=== PATIENT | female | born 1935 | race Caucasian/White ===

== ENCOUNTER 2016-07-19 13:14 | Inpatient (IN) | payer OTHER ==
--- NOTE | 2016-07-19 16:04 | PDOC ---
History of Present Illness - General Chief Complaint: Weakness Stated Complaint: WEAKNESS Time Seen by Provider: 07/19/16 15:45 History Source: Patient Exam Limitations: No Limitations - History of Present Illness Initial Comments: 80 yo F history HTN, HL, hypothyroid, GERD, asthma, anemia presents with weakness. She was evaluated in the ED a few days ago for the same, found to have UTI. She has been taking keflex, but is still feeling weak. She has suprapubic abdominal pain and lower back pain. No flank pain. Denies N/V. States that she feels dehydrated. Past History - Past Medical History Allergies/Adverse Reactions: Allergies Allergy/AdvReac Type Severity Reaction Status Date / Time quinine [Quinine] Allergy Mild Rash Verified 07/19/16 13:30 Sulfa (Sulfonamide Allergy Mild Rash Verified 07/19/16 13:30 Antibiotics) [Sulfa(Sulfonamide Antibiotics)] Home Medications: Ambulatory Orders Carvedilol [Coreg] 6.25 mg PO DAILY 12/18/14 Levothyroxine [Synthroid -] 25 mcg PO DAILY 12/18/14 Losartan Potassium [Cozaar] 50 mg PO DAILY 12/18/14 Metformin HCl [Glucophage -] 500 mg PO TID 12/18/14 Sertraline HCl [Zoloft -] 25 mg PO HS 12/18/14 Sitagliptin Phosphate [Januvia] 100 mg PO DAILY 12/18/14 Atorvastatin Ca [Lipitor] 10 mg PO HS #1 tablet 12/22/14 Ranitidine [Zantac -] 150 mg PO BID #1 tablet 12/22/14 Cholecalciferol (Vitamin D3) [Vitamin D3 -] 1,000 unit PO DAILY 03/10/16 [place]-3 Fatty Acids [Fish Oil] 300 mg PO BID 03/10/16 Calcium Carb/Vitamin D3/Vit K1 [Citracal Soft Chew] 1 each PO DAILY 04/04/16 Fluticasone/Salmeterol [Advair 250-50 Diskus] 1 each IH BID 04/04/16 Ipratropium/Albuterol Sulfate [Combivent Respimat Inhal [place]] 4 gm IH QID PRN # 1 aer.w.adap 04/08/16 Cephalexin [Keflex] 500 mg PO BID #14 capsule 07/16/16 Anemia: Yes Asthma: Yes Cancer: No Cardiac Disorders: Yes (ashd) CVA: No COPD: Yes (emphysema) CHF: No Dementia: No Diabetes: Yes (NIDDM) GI Disorders: Yes (Diverticulosis,gerd, POLYPS) Disorders: No HTN: No Hypercholesterolemia: Yes (takes lipitor) Liver Disease: (FATTY LIVER) Psychiatric Problems: Yes (derpression) Seizures: No Thyroid Disease: Yes - Surgical History Abdominal Surgery: Yes (appendectomy,hernia repair) Appendectomy: Yes Cardiac Surgery: No Cholecystectomy: No Lung Surgery: No Neurologic Surgery: No Orthopedic Surgery: No - Psycho/Social/Smoking Cessation Hx Anxiety: No Suicidal Ideation: No Smoking Status: Yes (1972) Smoking History: Never smoked Have you smoked in the past 12 months: No Number of Cigarettes Smoked Daily: 0 If you are a former smoker, when did you quit?: 1972 Information on smoking cessation initiated: No 'Breaking Loose' booklet given: 11/23/15 Hx Alcohol Use: No Drug/Substance Use Hx: No Substance Use Type: None Hx Substance Use Treatment: No Review of Systems - Review of Systems Able to Perform ROS?: Yes Comments:: GENERAL/CONSTITUTIONAL: No fever or chills. +Weakness. HEAD, EYES, EARS, NOSE AND THROAT: No change in vision. No ear pain or discharge. No sore throat. CARDIOVASCULAR: No chest pain or shortness of breath. RESPIRATORY: No cough, wheezing, or hemoptysis. GASTROINTESTINAL: No nausea, vomiting, diarrhea or constipation. GENITOURINARY: No dysuria, frequency, or change in urination. MUSCULOSKELETAL: No joint or muscle swelling or pain. No neck or back pain. SKIN: No rash NEUROLOGIC: No headache, vertigo, loss of consciousness, or change in strength/ sensation. ENDOCRINE: No increased thirst. No abnormal weight change. HEMATOLOGIC/LYMPHATIC: No anemia, easy bleeding, or history of blood clots. ALLERGIC/IMMUNOLOGIC: No hives or skin allergy. *Physical Exam - Vital Signs Last Vital Signs Temp Pulse Resp BP Pulse Ox 97.8 F 78 18 117/71 93 L 07/19/16 13:30 07/19/16 13:30 07/19/16 13:30 07/19/16 13:30 07/19/16 13:30 - Physical Exam Comments: GENERAL: Awake, alert, and fully oriented, in no acute distress HEAD: No signs of trauma EYES: PERRLA, EOMI, sclera anicteric, conjunctiva clear ENT: Auricles normal inspection, hearing grossly normal, nares patent, oropharynx clear without exudates. Dry mucosa NECK: Normal ROM, supple, no lymphadenopathy, JVD, or masses LUNGS: Breath sounds equal, clear to auscultation bilaterally. No wheezes, and no crackles HEART: Regular rate and rhythm, IV/ systolic murmur ABDOMEN: Soft, nontender, normoactive bowel sounds. No guarding, no rebound. No masses EXTREMITIES: Normal range of motion, no edema. No clubbing or cyanosis. No cords, erythema, or tenderness NEUROLOGICAL: Cranial nerves II through XII grossly intact. Normal speech, normal gait SKIN: Warm, Dry, normal turgor, no rashes or lesions noted. Heart Score/ECG Review - ECG Impressions Comment:: EKG read 16:35- NSR 70 bpm, inv T aVL, +LVH ED Treatment Course - LABORATORY CBC & Chemistry Diagram: 07/20/16 07:15 07/20/16 07:15 Medical Decision Making - Medical Decision Making Pt admitted for pna due to low O2 Sat on room air. *DC/Admit/Observation/Transfer Diagnosis at time of Disposition: Weakness Pneumonia Qualifiers: Pneumonia type: due to unspecified organism Laterality: bilateral Lung location : lower lobe of lung Qualified Code(s): J18.9 - Pneumonia, unspecified organism - Discharge Dispostion Condition at time of disposition: Stable Admit: Yes - Referrals
[2016-07-19 16:20] LABS: BASOPHIL 1.6 % (0-2.0); MCHC 33.4 g/dl (32.0-36.0); MEAN CELL VOLUME 86.9 fl (80-96); MEAN PLT VOLUME 7.9 fl (7.5-11.1); NEUTROPHILS 62.5 % (42.8-82.8); PLATELET COUNT 253 K/MM3 (134-434); RDW 15.5 % (11.6-15.6); WHITE BLOOD COUNT 9.2 K/mm3 (4.0-10.0)
[2016-07-19 16:36] LABS: URINE APPEARANCE CLEAR; URINE BILIRUBIN NEGATIVE (NEGATIVE); URINE BLOOD NEGATIVE (NEGATIVE); URINE COLOR LTYELLOW; URINE GLUCOSE (UA) NEGATIVE (NEGATIVE); URINE KETONE NEGATIVE (NEGATIVE); URINE LEUK ESTERASE NEGATIVE (NEGATIVE); URINE NITRITE NEGATIVE (NEGATIVE); URINE PROTEIN NEGATIVE (NEGATIVE); URINE UROBILINOGEN NEGATIVE E.U./dl (0.2-1.0)
[2016-07-19 16:45] LABS: ALBUMIN 3.1 g/dl (3.4-5.0); ANION GAP 8 (8-16); BILIRUBIN,TOTAL 0.5 mg/dL (0.2-1.0); CALCIUM 8.1 mg/dL (8.5-10.1); CO2 28 mmol/L (21-32); CREATININE 0.6 mg/dL (0.55-1.02); GLUCOSE,RANDOM 107 mg/dL (74-106); SGOT/AST 13 U/L (15-37); SGPT/ALT 14 U/L (12-78); TOT PROT 6.4 g/dl (6.4-8.2)
[2016-07-19 16:47] LABS: ALK PHOS 49 U/L (45-117); TROPONIN I < 0.02 ng/ml (0.00-0.05)
[2016-07-19] MEDS ORDERED: CEFTRIAXONE 1 GM in DEXTROSE 5%-WATER - 50 ML IVPB ONE (17:20)
[2016-07-19] MEDS ORDERED: AZITHROMYCIN IVPB 500 MG in DEXTROSE 5%-WATER - 250 ML IVPB ONE (17:20)
[2016-07-19] MEDS ORDERED: CEFTRIAXONE 50 ML ONE (17:28)
[2016-07-19] MEDS ORDERED: AZITHROMYCIN IVPB 250 ML IVPB ONE (17:28)
[2016-07-19] MEDS ORDERED: PATIENT'S OWN MEDICATION (NON-FORMULARY) (Ipratropium/Albuterol Sulfate [Combivent Respima IH PRN (20:01)
[2016-07-19] MEDS ORDERED: ACETAMINOPHEN 325 MG TABLET (FP) PO PRN (20:03)
[2016-07-19] MEDS ORDERED: RANITIDINE HCL 150 MG TABLET (FP) ONE (23:29)
[2016-07-19] MEDS: INSULIN SLIDING SCALE (NOVOLOG) 1 VIAL SQ SCH (23:38)
[2016-07-19] MEDS: RANITIDINE HCL 150 MG TABLET (FP) PO SCH (23:39)
[2016-07-19] MEDS: ATORVASTATIN CA 10 MG TABLET (FP) PO SCH (23:39)
[2016-07-19] MEDS: SERTRALINE HCL 25 MG TABLET (FP) PO SCH (23:39)
[2016-07-19] MEDS: BUDESONIDE/FORMETEROL FUMARATE 80/4.5 mcg INHALER IH SCH (23:39)
[2016-07-20] MEDS: INSULIN SLIDING SCALE (NOVOLOG) 1 VIAL SQ SCH ×4 (07:40→21:58)
[2016-07-20 08:17] LABS: BASOPHIL 0.8 % (0-2.0); EOSINOPHIL 2.3 % (0-4.5); MCH 29.7 pg (25.7-33.7); MCHC 34.1 g/dl (32.0-36.0); MEAN CELL VOLUME 87.2 fl (80-96); MEAN PLT VOLUME 8.4 fl (7.5-11.1); NEUTROPHILS 60.1 % (42.8-82.8); PLATELET COUNT 245 K/MM3 (134-434); RDW 15.6 % (11.6-15.6); WHITE BLOOD COUNT 8.1 K/mm3 (4.0-10.0)
[2016-07-20] MEDS: sitaGLIPtin PHOSPHATE 100 MG TABLET (FP) PO SCH (08:21)
[2016-07-20] MEDS: metFORMIN HCL 500 MG TABLET (FP) PO SCH ×3 (08:21→16:41)
[2016-07-20] MEDS: LEVOTHYROXINE NA 25 MCG TABLET (FP) PO SCH (08:21)
[2016-07-20 08:53] LABS: CALCIUM 8.1 mg/dL (8.5-10.1); CREATININE 0.5 mg/dL (0.55-1.02); MAGNESIUM 1.8 mg/dL (1.8-2.4); PHOSPHOROUS 3.2 mg/dL (2.5-4.9)
[2016-07-20] MEDS: ENOXAPARIN NA (PORCINE) 40 MG/0.4 ML DISP.SYRIN SQ SCH (09:22)
[2016-07-20] MEDS: LACTOBACILLUS ACIDOPHILUS 1 EACH TAB (FP) PO SCH (10:21)
[2016-07-20] MEDS: CARVEDILOL 6.25 MG TABLET (FP) PO SCH (10:21)
[2016-07-20] MEDS: LOSARTAN POTASSIUM 50 MG TABLET (FP) PO SCH (10:22)
[2016-07-20] MEDS: CEFTRIAXONE 50 ML IVPB SCH (10:22)
[2016-07-20] MEDS: RANITIDINE HCL 150 MG TABLET (FP) PO SCH ×2 (10:23→21:59)
[2016-07-20] MEDS: BUDESONIDE/FORMETEROL FUMARATE 80/4.5 mcg INHALER IH SCH ×2 (10:23→21:58)
[2016-07-20] MEDS: CHOLECALCIFEROL (VITAMIN D3) 1,000 UNIT TABLET (FP) PO SCH (10:23)
[2016-07-20] MEDS: AZITHROMYCIN IVPB 250 MG in DEXTROSE 5%-WATER - 250 ML IVPB SCH (10:23)
--- NOTE | 2016-07-20 10:44 | HP ---
Admitting History and Physical - Primary Care Physician PCP: Jorje Tom - Admission Chief Complaint: I don't feel well History of Present Illness: Ms Valadez is a very pleasant 80 year old female who comes in with complaints of not feeling well. She says this began last week with general weakness and shortness of breath. She says she was getting short of breath on minimal exertion and she was feeling very weak. She was seen in the ED on Tuesday and discharged, however she began to feel worse. She says she was having difficulty walking secondary to weakness. She has lightheadedness, both at rest and exertion. She says she was feeling feverish with chills. She says she had a productive cough with green sputum. She had some nausea but no vomiting. She denies dizziness, passing out, chest pain, diarrhea, constipation, difficulty or pain on urination, or swelling. She is saying she still feels bad. History Source: Patient Limitations to Obtaining History: No Limitations - Past Medical History Cardiovascular: Yes: Aortic Stenosis, HTN, Hyperlipdemia Pulmonary: Yes: COPD Musculoskeletal: Yes: Osteoarthritis Endocrine: Yes: Diabetes Mellitus, Hypothyroidism - Past Surgical History Past Surgical History: Yes: Appendectomy, Hernia Repair, Tonsillectomy - Smoking History Smoking history: Former smoker Have you smoked in the past 12 months: No Aproximately how many cigarettes per day: 0 If you are a former smoker, when did you quit?: 1972 - Alcohol/Substance Use Hx Alcohol Use: No History of Substance Use: reports: None - Social History ADL: Independent History of Recent Travel: No Home Medications - Allergies Allergies/Adverse Reactions: Allergies Allergy/AdvReac Type Severity Reaction Status Date / Time quinine [Quinine] Allergy Mild Rash Verified 07/19/16 13:30 Sulfa (Sulfonamide Allergy Mild Rash Verified 07/19/16 13:30 Antibiotics) [Sulfa(Sulfonamide Antibiotics)] - Home Medications Home Medications: Ambulatory Orders Carvedilol [Coreg] 6.25 mg PO DAILY 12/18/14 Levothyroxine [Synthroid -] 25 mcg PO DAILY 12/18/14 Losartan Potassium [Cozaar] 50 mg PO DAILY 12/18/14 Metformin HCl [Glucophage -] 500 mg PO TID 12/18/14 Sertraline HCl [Zoloft -] 25 mg PO HS 12/18/14 Sitagliptin Phosphate [Januvia] 100 mg PO DAILY 12/18/14 Atorvastatin Ca [Lipitor] 10 mg PO HS #1 tablet 12/22/14 Ranitidine [Zantac -] 150 mg PO BID #1 tablet 12/22/14 Cholecalciferol (Vitamin D3) [Vitamin D3 -] 1,000 unit PO DAILY 03/10/16 [place]-3 Fatty Acids [Fish Oil] 300 mg PO BID 03/10/16 Calcium Carb/Vitamin D3/Vit K1 [Citracal Soft Chew] 1 each PO DAILY 04/04/16 Fluticasone/Salmeterol [Advair 250-50 Diskus] 1 each IH BID 04/04/16 Ipratropium/Albuterol Sulfate [Combivent Respimat Inhal [place]] 4 gm IH QID PRN # 1 aer.w.adap 04/08/16 Cephalexin [Keflex] 500 mg PO BID #14 capsule 07/16/16 Family Disease History - Family Disease History Family Disease History: Heart Disease: Mother, Son, Other: Father (emphysema, PE ) Review of Systems Findings/Remarks: Full review of systems obtained, as per HPI and otherwise negative Physical Examination Vital Signs: Vital Signs Temperature 98.3 F 07/19/16 18:36 Pulse Rate 71 07/20/16 05:30 Respiratory Rate 18 07/20/16 05:30 Blood Pressure 130/72 07/20/16 05:30 O2 Sat by Pulse Oximetry (%) 97 07/20/16 05:30 Constitutional: Yes: Well Nourished, No Distress, Calm Eyes: Yes: Conjunctiva Clear, EOM Intact HENT: Yes: Atraumatic, Normocephalic Cardiovascular: Yes: Regular Rate and Rhythm, Murmur. No: Gallop, Rub Respiratory: Yes: Regular, CTA Bilaterally. No: Rales, Rhonchi, Wheezes Gastrointestinal: Yes: Normal Bowel Sounds, Soft. No: Distention, Tenderness Extremities: Yes: WNL Edema: No Labs: CBC, BMP 07/20/16 07:15 07/20/16 07:15 Imaging - Results Chest X-ray: Report Reviewed, Image Reviewed Problem List - Problems (1) Pneumonia Assessment/Plan: -patient presents with signs of infection and has infiltrates on chest x-ray -recently seen in the ED, discharged on keflex for possible UTI -however presentation this time more consistent with pneumonia -failed outpatient antibiotic therapy -admit to med/surg -check sputum culture and urine for antigens -on rocephin and zithromax, day 2 -will check influenza as well Code(s): J18.9 - PNEUMONIA, UNSPECIFIED ORGANISM Qualifiers: Pneumonia type: due to unspecified organism Laterality: bilateral Lung location: lower lobe of lung Qualified Code(s): J18.9 - Pneumonia, unspecified organism (2) Weakness Assessment/Plan: -secondary to pneumonia -PT consult Code(s): R53.1 - WEAKNESS (3) Aortic stenosis Assessment/Plan: -chronic -patient states not interested in intervention Code(s): I35.0 - NONRHEUMATIC AORTIC (VALVE) STENOSIS (4) CAD (coronary artery disease) Assessment/Plan: -quiescent -continue home regimen Code(s): I25.10 - ATHSCL HEART DISEASE OF [place] CORONARY ARTERY W/O ANG PCTRS (5) COPD (chronic obstructive pulmonary disease) Assessment/Plan: -slight exacerbation secondary to pneumonia -however lung exam clear and not requiring oxygen -currently steroids are not indicated -continue current regimen Code(s): J44.9 - CHRONIC OBSTRUCTIVE PULMONARY DISEASE, UNSPECIFIED Qualifiers : COPD type: unspecified COPD Qualified Code(s): J44.9 - Chronic obstructive pulmonary disease, unspecified (6) Diabetes Assessment/Plan: -diabetic diet -continue home regimen -SSI Code(s): E11.9 - TYPE 2 DIABETES MELLITUS WITHOUT COMPLICATIONS (7) GERD (gastroesophageal reflux disease) Assessment/Plan: -continue zantac Code(s): K21.9 - GASTRO-ESOPHAGEAL REFLUX DISEASE WITHOUT ESOPHAGITIS (8) HTN (hypertension) Assessment/Plan: -controlled -continue current regimen Code(s): I10 - ESSENTIAL (PRIMARY) HYPERTENSION
--- NOTE | 2016-07-20 12:52 | EKG ---
Test Reason : Blood Pressure : / mmHG Vent. Rate : 070 BPM Atrial Rate : 073 BPM P-R Int : 186 ms QRS Dur : 096 ms QT Int : 416 ms P-R-T Axes : 071 -41 089 degrees QTc Int : 449 ms NORMAL SINUS RHYTHM WITH SINUS ARRHYTHMIA LEFT AXIS DEVIATION VOLTAGE CRITERIA FOR LEFT VENTRICULAR HYPERTROPHY CANNOT RULE OUT SEPTAL INFARCT (CITED ON OR BEFORE 19-MAR-2016) ABNORMAL ECG WHEN COMPARED WITH ECG OF 16-JUL-2016 21:33, NO SIGNIFICANT CHANGE WAS FOUND Confirmed by GIO GUZMÁN MD ([id number]) on 07/20/2016 12:52:46 PM Referred By: Confirmed By:GIO GUZMÁN MD
[2016-07-20 13:28] VITALS: BMI 30.8
[2016-07-20] MEDS ORDERED: AZITHROMYCIN IVPB 250 ML IVPB ONE (16:27)
[2016-07-20] MEDS ORDERED: CEFTRIAXONE 50 ML ONE (16:27)
[2016-07-20] MEDS: SERTRALINE HCL 25 MG TABLET (FP) PO SCH (21:59)
[2016-07-20] MEDS: ATORVASTATIN CA 10 MG TABLET (FP) PO SCH (21:59)
[2016-07-21] MEDS: sitaGLIPtin PHOSPHATE 100 MG TABLET (FP) PO SCH (06:46)
[2016-07-21] MEDS: metFORMIN HCL 500 MG TABLET (FP) PO SCH ×3 (06:46→18:18)
[2016-07-21] MEDS: INSULIN SLIDING SCALE (NOVOLOG) 1 VIAL SQ SCH ×4 (06:47→21:14)
[2016-07-21] MEDS: LEVOTHYROXINE NA 25 MCG TABLET (FP) PO SCH (06:47)
[2016-07-21 08:38] LABS: EOSINOPHIL 3.2 % (0-4.5); MCH 29.9 pg (25.7-33.7); MCHC 34.6 g/dl (32.0-36.0); MEAN CELL VOLUME 86.4 fl (80-96); MEAN PLT VOLUME 8.1 fl (7.5-11.1); NEUTROPHILS 54.7 % (42.8-82.8); PLATELET COUNT 263 K/MM3 (134-434); RDW 15.3 % (11.6-15.6); WHITE BLOOD COUNT 7.2 K/mm3 (4.0-10.0)
[2016-07-21 09:52] LABS: CALCIUM 8.2 mg/dL (8.5-10.1); CREATININE 0.6 mg/dL (0.55-1.02); PHOSPHOROUS 4.5 mg/dL (2.5-4.9)
[2016-07-21] MEDS ORDERED: PT OWN MED DRAWER 7, Y5N ONE ×4 (10:41→20:51)
[2016-07-21] MEDS: CEFTRIAXONE 50 ML IVPB SCH (10:46)
[2016-07-21] MEDS: CHOLECALCIFEROL (VITAMIN D3) 1,000 UNIT TABLET (FP) PO SCH (10:49)
[2016-07-21] MEDS: LOSARTAN POTASSIUM 50 MG TABLET (FP) PO SCH (10:49)
[2016-07-21] MEDS: CARVEDILOL 6.25 MG TABLET (FP) PO SCH (10:49)
[2016-07-21] MEDS: RANITIDINE HCL 150 MG TABLET (FP) PO SCH ×2 (10:49→21:15)
[2016-07-21] MEDS: ENOXAPARIN NA (PORCINE) 40 MG/0.4 ML DISP.SYRIN SQ SCH (10:49)
[2016-07-21] MEDS: BUDESONIDE/FORMETEROL FUMARATE 80/4.5 mcg INHALER IH SCH ×2 (10:49→21:15)
[2016-07-21] MEDS: LACTOBACILLUS ACIDOPHILUS 1 EACH TAB (FP) PO SCH (10:49)
[2016-07-21] MEDS: AZITHROMYCIN IVPB 250 MG in DEXTROSE 5%-WATER - 250 ML IVPB SCH (11:25)
[2016-07-21] MEDS: PATIENT'S OWN MEDICATION (NON-FORMULARY) (Omega-3 Fatty Acids [Fish Oil] 300 MG) PO SCH ×2 (12:29→12:30)
[2016-07-21] MEDS: CALCIUM CARB PO SCH ×2 (12:30→12:31)
[2016-07-21] MEDS: VIT K1 PO SCH ×2 (12:30→12:31)
[2016-07-21] MEDS: VITAMIN D3 PO SCH ×2 (12:30→12:31)
[2016-07-21] MEDS: [UNRECOGNIZED DRUG - OTHER] PO SCH ×2 (12:30→12:31)
--- NOTE | 2016-07-21 14:20 | PN ---
Progress Note, Physician Chief Complaint: Ms Valadez says she is feeling improved today. Still with shortness of breath but better. No cp or n/v. - Current Medication List Current Medications: Active Medications Acetaminophen (Tylenol -) 650 mg PO Q4H PRN PRN Reason: FEVER OR PAIN Albuterol/Ipratropium (Duoneb -) 1 amp NEB Q6H PRN PRN Reason: SHORTNESS OF BREATH Atorvastatin Calcium (Lipitor -) 10 mg PO HS [facility] Last Admin: 07/20/16 21:59 Dose: 10 mg Budesonide/Formoterol Fumarate (Symbicort 80/4.5mcg -) 2 puff IH BID [facility] Last Admin: 07/21/16 10:49 Dose: 2 puff Carvedilol (Coreg -) 6.25 mg PO DAILY [facility] Last Admin: 07/21/16 10:49 Dose: 6.25 mg Cholecalciferol (Vitamin D3 -) 1,000 unit PO DAILY [facility] Last Admin: 07/21/16 10:49 Dose: 1,000 unit Enoxaparin Sodium (Lovenox -) 40 mg SQ DAILY [facility] Last Admin: 07/21/16 10:49 Dose: 40 mg Azithromycin 250 mg/ Dextrose 250 mls @ 250 mls/hr IVPB DAILY [facility] Last Admin: 07/21/16 11:25 Dose: 250 mls/hr Ceftriaxone Sodium (Rocephin 1gm Ivpb (Pre-Docked)) 50 mls @ 100 mls/hr IVPB DAILY [facility] Last Admin: 07/21/16 10:46 Dose: 100 mls/hr Insulin Aspart (Novolog Vial Sliding Scale -) 1 vial SQ ACHS [facility] PRN Reason: Protocol Last Admin: 07/21/16 12:04 Dose: Not Given Lactobacillus Acidophilus (Bacid -) 1 tab PO DAILY [facility] Last Admin: 07/21/16 10:49 Dose: 1 tab Levothyroxine Sodium (Synthroid -) 25 mcg PO ACBK [facility] Last Admin: 07/21/16 06:47 Dose: 25 mcg Losartan Potassium (Cozaar -) 50 mg PO DAILY [facility] Last Admin: 07/21/16 10:49 Dose: 50 mg Metformin HCl (Glucophage -) 500 mg PO TIDAC [facility] Last Admin: 07/21/16 12:06 Dose: 500 mg Ranitidine HCl (Zantac -) 150 mg PO BID [facility] Last Admin: 07/21/16 10:49 Dose: 150 mg Sertraline HCl (Zoloft -) 25 mg PO HS [facility] Last Admin: 07/20/16 21:59 Dose: 25 mg Sitagliptin Phosphate (Januvia -) 100 mg PO ACBK [facility] Last Admin: 07/21/16 06:46 Dose: 100 mg - Objective Vital Signs: Vital Signs Temperature 98.2 F 07/21/16 06:42 Pulse Rate 79 07/21/16 13:12 Respiratory Rate 20 07/21/16 06:42 Blood Pressure 110/50 07/21/16 06:42 O2 Sat by Pulse Oximetry (%) 95 07/21/16 13:12 Constitutional: Yes: Well Nourished, No Distress, Calm Cardiovascular: Yes: Regular Rate and Rhythm, Murmur. No: Gallop, Rub Respiratory: Yes: Regular, CTA Bilaterally. No: Rales, Rhonchi, Wheezes Gastrointestinal: Yes: Normal Bowel Sounds, Soft. No: Distention, Tenderness Extremities: Yes: WNL Edema: No Labs: CBC, BMP 07/21/16 07:00 07/21/16 07:00 Problem List - Problems (1) Pneumonia Code(s): J18.9 - PNEUMONIA, UNSPECIFIED ORGANISM Qualifiers: Pneumonia type: due to unspecified organism Laterality: bilateral Lung location: lower lobe of lung Qualified Code(s): J18.9 - Pneumonia, unspecified organism (2) Weakness Code(s): R53.1 - WEAKNESS (3) Aortic stenosis Code(s): I35.0 - NONRHEUMATIC AORTIC (VALVE) STENOSIS (4) CAD (coronary artery disease) Code(s): I25.10 - ATHSCL HEART DISEASE OF [place] CORONARY ARTERY W/O ANG PCTRS (5) COPD (chronic obstructive pulmonary disease) Code(s): J44.9 - CHRONIC OBSTRUCTIVE PULMONARY DISEASE, UNSPECIFIED Qualifiers : COPD type: unspecified COPD Qualified Code(s): J44.9 - Chronic obstructive pulmonary disease, unspecified (6) Diabetes Code(s): E11.9 - TYPE 2 DIABETES MELLITUS WITHOUT COMPLICATIONS (7) GERD (gastroesophageal reflux disease) Code(s): K21.9 - GASTRO-ESOPHAGEAL REFLUX DISEASE WITHOUT ESOPHAGITIS (8) HTN (hypertension) Code(s): I10 - ESSENTIAL (PRIMARY) HYPERTENSION Assessment/Plan (1) Pneumonia Assessment/Plan: -influenza negative -continue rocephin and zithromax -antibiotics day 3 Code(s): J18.9 - PNEUMONIA, UNSPECIFIED ORGANISM Qualifiers: Pneumonia type: due to unspecified organism Laterality: bilateral Lung location: lower lobe of lung Qualified Code(s): J18.9 - Pneumonia, unspecified organism (2) Weakness Assessment/Plan: -secondary to pneumonia -PT consulted Code(s): R53.1 - WEAKNESS (3) Aortic stenosis Assessment/Plan: -chronic -patient states not interested in intervention Code(s): I35.0 - NONRHEUMATIC AORTIC (VALVE) STENOSIS (4) CAD (coronary artery disease) Assessment/Plan: -quiescent -continue home regimen Code(s): I25.10 - ATHSCL HEART DISEASE OF [place] CORONARY ARTERY W/O ANG PCTRS (5) COPD (chronic obstructive pulmonary disease) Assessment/Plan: -improving -continue home regimen Code(s): J44.9 - CHRONIC OBSTRUCTIVE PULMONARY DISEASE, UNSPECIFIED Qualifiers : COPD type: unspecified COPD Qualified Code(s): J44.9 - Chronic obstructive pulmonary disease, unspecified (6) Diabetes Assessment/Plan: -diabetic diet -continue home regimen -SSI Code(s): E11.9 - TYPE 2 DIABETES MELLITUS WITHOUT COMPLICATIONS (7) GERD (gastroesophageal reflux disease) Assessment/Plan: -continue zantac Code(s): K21.9 - GASTRO-ESOPHAGEAL REFLUX DISEASE WITHOUT ESOPHAGITIS (8) HTN (hypertension) Assessment/Plan: -controlled -continue current regimen Code(s): I10 - ESSENTIAL (PRIMARY) HYPERTENSION
[2016-07-21] MEDS ORDERED: INSULIN (NOVOLOG) ASPART 100 UNITS/ML 10ML VIAL ONE (18:09)
[2016-07-21] MEDS: ATORVASTATIN CA 10 MG TABLET (FP) PO SCH (21:14)
[2016-07-21] MEDS: SERTRALINE HCL 25 MG TABLET (FP) PO SCH (21:15)
[2016-07-21] MEDS: ALBUTEROL SO4 2.5/IPRATROPIUM 0.5 INH SOL 3 ML VIAL.NEB. NEB PRN (22:15)
[2016-07-22] MEDS: ALBUTEROL SO4 2.5/IPRATROPIUM 0.5 INH SOL 3 ML VIAL.NEB. NEB PRN ×2 (05:42→18:54)
[2016-07-22] MEDS: LEVOTHYROXINE NA 25 MCG TABLET (FP) PO SCH (06:46)
[2016-07-22] MEDS: INSULIN SLIDING SCALE (NOVOLOG) 1 VIAL SQ SCH ×4 (06:46→21:28)
[2016-07-22] MEDS: sitaGLIPtin PHOSPHATE 100 MG TABLET (FP) PO SCH (06:47)
[2016-07-22] MEDS: metFORMIN HCL 500 MG TABLET (FP) PO SCH ×3 (06:47→17:58)
[2016-07-22 08:25] LABS: BASOPHIL 0.6 % (0-2.0); EOSINOPHIL 2.6 % (0-4.5); MCH 29.6 pg (25.7-33.7); MEAN CELL VOLUME 87.1 fl (80-96); MEAN PLT VOLUME 7.9 fl (7.5-11.1); NEUTROPHILS 51.5 % (42.8-82.8); PLATELET COUNT 265 K/MM3 (134-434); RDW 15.6 % (11.6-15.6); WHITE BLOOD COUNT 7.1 K/mm3 (4.0-10.0)
[2016-07-22] MEDS ORDERED: PT OWN MED DRAWER 7, Y5N ONE (09:07)
[2016-07-22 09:18] LABS: CALCIUM 8.7 mg/dL (8.5-10.1); CREATININE 0.6 mg/dL (0.55-1.02); MAGNESIUM 2.1 mg/dL (1.8-2.4)
[2016-07-22] MEDS: CHOLECALCIFEROL (VITAMIN D3) 1,000 UNIT TABLET (FP) PO SCH (09:19)
[2016-07-22] MEDS: LACTOBACILLUS ACIDOPHILUS 1 EACH TAB (FP) PO SCH (09:19)
[2016-07-22] MEDS: ENOXAPARIN NA (PORCINE) 40 MG/0.4 ML DISP.SYRIN SQ SCH (09:19)
[2016-07-22] MEDS: LOSARTAN POTASSIUM 50 MG TABLET (FP) PO SCH (09:19)
[2016-07-22] MEDS: CARVEDILOL 6.25 MG TABLET (FP) PO SCH ×2 (09:19→21:27)
[2016-07-22] MEDS: BUDESONIDE/FORMETEROL FUMARATE 80/4.5 mcg INHALER IH SCH ×2 (09:20→21:28)
[2016-07-22] MEDS: CEFTRIAXONE 50 ML IVPB SCH (09:20)
[2016-07-22] MEDS: RANITIDINE HCL 150 MG TABLET (FP) PO SCH ×2 (09:20→21:27)
[2016-07-22] MEDS: AZITHROMYCIN IVPB 250 MG in DEXTROSE 5%-WATER - 250 ML IVPB SCH (10:22)
--- NOTE | 2016-07-22 10:37 | PN ---
Progress Note, Physician Chief Complaint: Ms Valadez says she is feeling worse today. Says when she got up to walk she became very short of breath. Also says sometimes she cannot lie flat. became very weak with ambulation. No cp or n/v. - Current Medication List Current Medications: Active Medications Acetaminophen (Tylenol -) 650 mg PO Q4H PRN PRN Reason: FEVER OR PAIN Albuterol/Ipratropium (Duoneb -) 1 amp NEB Q6H PRN PRN Reason: SHORTNESS OF BREATH Last Admin: 07/22/16 05:42 Dose: 1 amp Atorvastatin Calcium (Lipitor -) 10 mg PO HS [facility] Last Admin: 07/21/16 21:14 Dose: 10 mg Budesonide/Formoterol Fumarate (Symbicort 80/4.5mcg -) 2 puff IH BID [facility] Last Admin: 07/22/16 09:20 Dose: 2 puff Carvedilol (Coreg -) 6.25 mg PO DAILY [facility] Last Admin: 07/22/16 09:19 Dose: 6.25 mg Cholecalciferol (Vitamin D3 -) 1,000 unit PO DAILY [facility] Last Admin: 07/22/16 09:19 Dose: 1,000 unit Enoxaparin Sodium (Lovenox -) 40 mg SQ DAILY [facility] Last Admin: 07/22/16 09:19 Dose: 40 mg Azithromycin 250 mg/ Dextrose 250 mls @ 250 mls/hr IVPB DAILY [facility] Last Admin: 07/22/16 10:22 Dose: 250 mls/hr Ceftriaxone Sodium (Rocephin 1gm Ivpb (Pre-Docked)) 50 mls @ 100 mls/hr IVPB DAILY [facility] Last Admin: 07/22/16 09:20 Dose: 100 mls/hr Insulin Aspart (Novolog Vial Sliding Scale -) 1 vial SQ ACHS [facility] PRN Reason: Protocol Last Admin: 07/22/16 06:46 Dose: Not Given Lactobacillus Acidophilus (Bacid -) 1 tab PO DAILY [facility] Last Admin: 07/22/16 09:19 Dose: 1 tab Levothyroxine Sodium (Synthroid -) 25 mcg PO ACBK [facility] Last Admin: 07/22/16 06:46 Dose: 25 mcg Losartan Potassium (Cozaar -) 50 mg PO DAILY [facility] Last Admin: 07/22/16 09:19 Dose: 50 mg Metformin HCl (Glucophage -) 500 mg PO TIDAC [facility] Last Admin: 07/22/16 06:47 Dose: 500 mg Ranitidine HCl (Zantac -) 150 mg PO BID [facility] Last Admin: 07/22/16 09:20 Dose: 150 mg Sertraline HCl (Zoloft -) 25 mg PO HS [facility] Last Admin: 07/21/16 21:15 Dose: 25 mg Sitagliptin Phosphate (Januvia -) 100 mg PO ACBK [facility] Last Admin: 07/22/16 06:47 Dose: 100 mg - Objective Vital Signs: Vital Signs Temperature 98.2 F 07/22/16 06:00 Pulse Rate 81 07/22/16 06:00 Respiratory Rate 20 07/22/16 06:00 Blood Pressure 127/62 07/22/16 06:00 O2 Sat by Pulse Oximetry (%) 95 07/21/16 21:00 Constitutional: Yes: Well Nourished, No Distress, Calm Cardiovascular: Yes: Regular Rate and Rhythm, Murmur. No: Gallop, Rub Respiratory: Yes: Regular, CTA Bilaterally. No: Rales, Rhonchi, Wheezes Gastrointestinal: Yes: Normal Bowel Sounds, Soft. No: Distention, Tenderness Extremities: Yes: WNL Edema: No Labs: CBC, BMP 07/22/16 06:15 07/22/16 06:15 Problem List - Problems (1) Pneumonia Code(s): J18.9 - PNEUMONIA, UNSPECIFIED ORGANISM Qualifiers: Pneumonia type: due to unspecified organism Laterality: bilateral Lung location: lower lobe of lung Qualified Code(s): J18.9 - Pneumonia, unspecified organism (2) Weakness Code(s): R53.1 - WEAKNESS (3) Aortic stenosis Code(s): I35.0 - NONRHEUMATIC AORTIC (VALVE) STENOSIS (4) CAD (coronary artery disease) Code(s): I25.10 - ATHSCL HEART DISEASE OF [place] CORONARY ARTERY W/O ANG PCTRS (5) COPD (chronic obstructive pulmonary disease) Code(s): J44.9 - CHRONIC OBSTRUCTIVE PULMONARY DISEASE, UNSPECIFIED Qualifiers : COPD type: unspecified COPD Qualified Code(s): J44.9 - Chronic obstructive pulmonary disease, unspecified (6) Diabetes Code(s): E11.9 - TYPE 2 DIABETES MELLITUS WITHOUT COMPLICATIONS (7) GERD (gastroesophageal reflux disease) Code(s): K21.9 - GASTRO-ESOPHAGEAL REFLUX DISEASE WITHOUT ESOPHAGITIS (8) HTN (hypertension) Code(s): I10 - ESSENTIAL (PRIMARY) HYPERTENSION Assessment/Plan (1) Pneumonia Assessment/Plan: -influenza negative -continue rocephin and zithromax -antibiotics day 4 Code(s): J18.9 - PNEUMONIA, UNSPECIFIED ORGANISM Qualifiers: Pneumonia type: due to unspecified organism Laterality: bilateral Lung location: lower lobe of lung Qualified Code(s): J18.9 - Pneumonia, unspecified organism (2) Weakness Assessment/Plan: -? if pneumonia or heart related -became very short of breath and weak on minimal exertion -continue PT, treat underlying illness Code(s): R53.1 - WEAKNESS (3) Aortic stenosis Assessment/Plan: -chronic -concerning patient may becoming symptomatic secondary to aortic stenosis -will consult cardiology to evaluate this Code(s): I35.0 - NONRHEUMATIC AORTIC (VALVE) STENOSIS (4) CAD (coronary artery disease) Assessment/Plan: -quiescent -continue home regimen Code(s): I25.10 - ATHSCL HEART DISEASE OF [place] CORONARY ARTERY W/O ANG PCTRS (5) COPD (chronic obstructive pulmonary disease) Assessment/Plan: -patient's lungs are clear and good air movement -also not requiring oxygen -lower suspicion this is secondary to COPD exacerbation -however will also consult pulmonary to evaluate for possible change in medications if needed or steroids Code(s): J44.9 - CHRONIC OBSTRUCTIVE PULMONARY DISEASE, UNSPECIFIED Qualifiers : COPD type: unspecified COPD Qualified Code(s): J44.9 - Chronic obstructive pulmonary disease, unspecified (6) Diabetes Assessment/Plan: -diabetic diet -continue home regimen -SSI Code(s): E11.9 - TYPE 2 DIABETES MELLITUS WITHOUT COMPLICATIONS (7) GERD (gastroesophageal reflux disease) Assessment/Plan: -continue zantac Code(s): K21.9 - GASTRO-ESOPHAGEAL REFLUX DISEASE WITHOUT ESOPHAGITIS (8) HTN (hypertension) Assessment/Plan: -controlled -continue current regimen Code(s): I10 - ESSENTIAL (PRIMARY) HYPERTENSION
--- NOTE | 2016-07-22 10:56 | CONSULT ---
Consult Consult Specialty:: PULMONARY Referred by:: Dr. Crawford Reason for Consultation:: shortness of breath - History of Present Illness Chief Complaint: shortness of breath History of Present Illness: 80yo female with h/o HTN, hyperlipidemia, DM, hypothyroidism, severe aortic stenosis, pulmonary HTN, COPD/emphysema who was admitted with worsening shortness of breath and generalized weakness. She denies any chest pain or palpitations. No leg swelling but with orthopnea. She was seen recently in the ER for similar symptoms, was diagnosed with UTI and discharged on antibiotics but without improvement. Has been receiving treatment for pneumonia this admission as bibasilar infiltrates seen on CXR and she was feeling better until this AM when she tried to exert herself but unable due to dyspnea. She does get dyspneic even at rest. +nonproductive cough but without wheezing. No fevers, chills or sweats. She is a remote smoker, maintained on Advair at home without significant albuterol use. She states she had a recent echocardiogram at her [employer] office. - History Source History Provided By: Patient, Medical Record Limitations to Obtaining History: No Limitations - Past Medical History Cardio/Vascular: Yes: Aortic Stenosis, HTN, Hyperlipdemia Pulmonary: Yes: COPD Musculoskeletal: Yes: Osteoarthritis Endocrine: Yes: Diabetes Mellitus, Hypothyroidism - Past Surgical History Past Surgical History: Yes: Appendectomy, Hernia Repair, Tonsillectomy - Alcohol/Substance Use Hx Alcohol Use: No History of Substance Use: reports: None - Smoking History Smoking history: Former smoker Have you smoked in the past 12 months: No Aproximately how many cigarettes per day: 0 If you are a former smoker, when did you quit?: 1973 - Social History ADL: Independent History of Recent Travel: No Home Medications - Allergies Allergies/Adverse Reactions: Allergies Allergy/AdvReac Type Severity Reaction Status Date / Time quinine [Quinine] Allergy Mild Rash Verified 07/19/16 13:30 Sulfa (Sulfonamide Allergy Mild Rash Verified 07/19/16 13:30 Antibiotics) [Sulfa(Sulfonamide Antibiotics)] - Home Medications Home Medications: Ambulatory Orders Carvedilol [Coreg] 6.25 mg PO DAILY 12/18/14 Levothyroxine [Synthroid -] 25 mcg PO DAILY 12/18/14 Losartan Potassium [Cozaar] 50 mg PO DAILY 12/18/14 Metformin HCl [Glucophage -] 500 mg PO TID 12/18/14 Sertraline HCl [Zoloft -] 25 mg PO HS 12/18/14 Sitagliptin Phosphate [Januvia] 100 mg PO DAILY 12/18/14 Atorvastatin Ca [Lipitor] 10 mg PO HS #1 tablet 12/22/14 Ranitidine [Zantac -] 150 mg PO BID #1 tablet 12/22/14 Cholecalciferol (Vitamin D3) [Vitamin D3 -] 1,000 unit PO DAILY 03/10/16 [place]-3 Fatty Acids [Fish Oil] 300 mg PO BID 03/10/16 Calcium Carb/Vitamin D3/Vit K1 [Citracal Soft Chew] 1 each PO DAILY 04/04/16 Fluticasone/Salmeterol [Advair 250-50 Diskus] 1 each IH BID 04/04/16 Ipratropium/Albuterol Sulfate [Combivent Respimat Inhal [place]] 4 gm IH QID PRN # 1 aer.w.adap 04/08/16 Cephalexin [Keflex] 500 mg PO BID #14 capsule 07/16/16 Family Disease History - Family Disease History Family Disease History: Heart Disease: Mother, Son, Other: Father (emphysema, PE ) Review of Systems - Review of Systems Constitutional: reports: Weakness. denies: Chills, Fever Eyes: denies: Recent Change in Vision HENT: denies: Nasal Congestion, Throat Pain Neck: denies: Stiffness, Tenderness Cardiovascular: reports: Edema, Shortness of Breath. denies: Chest Pain, Palpitations Respiratory: reports: Cough, Exercise Intolerance, SOB on Exertion. denies: Hemoptysis, Wheezing Gastrointestinal: denies: Abdominal Pain, Nausea, Vomiting Genitourinary: denies: Dysuria, Hematuria Neurological: denies: Dizziness, Headache Physical Exam Vital Signs: Vital Signs Temperature 98.2 F 07/22/16 06:00 Pulse Rate 81 07/22/16 06:00 Respiratory Rate 20 07/22/16 06:00 Blood Pressure 127/62 07/22/16 06:00 O2 Sat by Pulse Oximetry (%) 95 07/21/16 21:00 Constitutional: Yes: No Distress, Calm Eyes: Yes: Conjunctiva Clear, EOM Intact HENT: Yes: Atraumatic, Normocephalic Neck: Yes: Supple, Trachea Midline Cardiovascular: Yes: Regular Rate and Rhythm, Murmur (harsh systolic) Respiratory: Yes: Rales (bibasilar) Gastrointestinal: Yes: Normal Bowel Sounds, Soft. No: Tenderness Edema: No Labs: CBC, BMP 07/22/16 06:15 07/22/16 06:15 Imaging - Results Chest X-ray: Report Reviewed, Image Reviewed (bibasilar atelectasis vs infiltrates) Problem List - Problems (1) Aortic stenosis Code(s): I35.0 - NONRHEUMATIC AORTIC (VALVE) STENOSIS (2) Pneumonia Code(s): J18.9 - PNEUMONIA, UNSPECIFIED ORGANISM Qualifiers: Pneumonia type: due to unspecified organism Laterality: bilateral Lung location: lower lobe of lung Qualified Code(s): J18.9 - Pneumonia, unspecified organism (3) COPD (chronic obstructive pulmonary disease) Code(s): J44.9 - CHRONIC OBSTRUCTIVE PULMONARY DISEASE, UNSPECIFIED Qualifiers : COPD type: unspecified COPD Qualified Code(s): J44.9 - Chronic obstructive pulmonary disease, unspecified (4) Diabetes Code(s): E11.9 - TYPE 2 DIABETES MELLITUS WITHOUT COMPLICATIONS (5) HTN (hypertension) Code(s): I10 - ESSENTIAL (PRIMARY) HYPERTENSION (6) Pulmonary hypertension Code(s): I27.2 - OTHER SECONDARY PULMONARY HYPERTENSION Assessment/Plan Shortness of breath - ?worsening aortic stenosis COPD/Emphysema Pulmonary HTN r/o Pneumonia HTN DM - repeat CXR today to r/o worsening infiltrates or congestion as rales appreciated on exam - do not suspect acute COPD exacerbation and based on symptoms and maintenance therapy, COPD does not appear to be severe - continue empiric antibiotics for pneumonia - O2, inhaled bronchodilators as needed - cardiology evaluation - obtain recent outpt echocardiogram results or repeat here - DVT prophylaxis - will follow Thank you for this consult Festus Orlando MD
--- NOTE | 2016-07-22 12:19 | CON.CARD ---
Consult Consult Specialty:: Cardiology Referred by:: Ezekiel Crawford MD Reason for Consultation:: Critical - History of Present Illness Chief Complaint: Dyspnea History of Present Illness: 80yo female with h/o HTN, hyperlipidemia, DM, hypothyroidism, severe aortic stenosis hesitant for TAVR, pulmonary HTN, COPD/emphysema who was admitted with worsening shortness of breath, orthopnea, decreased exercise capacity, lught- headedness, nonproductive cough and generalized weakness. She denies any chest pain, palpitations, or true syncope, PND or LE edema. She is a remote smoker, maintained on Advair at home without significant albuterol use. - History Source History Provided By: Patient Limitations to Obtaining History: No Limitations - Past Medical History Cardio/Vascular: Yes: Aortic Stenosis, HTN, Hyperlipdemia Pulmonary: Yes: COPD Musculoskeletal: Yes: Osteoarthritis Endocrine: Yes: Diabetes Mellitus, Hypothyroidism - Past Surgical History Past Surgical History: Yes: Appendectomy, Hernia Repair, Tonsillectomy - Alcohol/Substance Use Hx Alcohol Use: No History of Substance Use: reports: None - Smoking History Smoking history: Former smoker Have you smoked in the past 12 months: No Aproximately how many cigarettes per day: 0 If you are a former smoker, when did you quit?: 1972 - Social History ADL: Independent History of Recent Travel: No Home Medications - Allergies Allergies/Adverse Reactions: Allergies Allergy/AdvReac Type Severity Reaction Status Date / Time quinine [Quinine] Allergy Mild Rash Verified 07/19/16 13:30 Sulfa (Sulfonamide Allergy Mild Rash Verified 07/19/16 13:30 Antibiotics) [Sulfa(Sulfonamide Antibiotics)] - Home Medications Home Medications: Ambulatory Orders Carvedilol [Coreg] 6.25 mg PO DAILY 12/18/14 Levothyroxine [Synthroid -] 25 mcg PO DAILY 12/18/14 Losartan Potassium [Cozaar] 50 mg PO DAILY 12/18/14 Metformin HCl [Glucophage -] 500 mg PO TID 12/18/14 Sertraline HCl [Zoloft -] 25 mg PO HS 12/18/14 Sitagliptin Phosphate [Januvia] 100 mg PO DAILY 12/18/14 Atorvastatin Ca [Lipitor] 10 mg PO HS #1 tablet 12/22/14 Ranitidine [Zantac -] 150 mg PO BID #1 tablet 12/22/14 Cholecalciferol (Vitamin D3) [Vitamin D3 -] 1,000 unit PO DAILY 03/10/16 [place]-3 Fatty Acids [Fish Oil] 300 mg PO BID 03/10/16 Calcium Carb/Vitamin D3/Vit K1 [Citracal Soft Chew] 1 each PO DAILY 04/04/16 Fluticasone/Salmeterol [Advair 250-50 Diskus] 1 each IH BID 04/04/16 Ipratropium/Albuterol Sulfate [Combivent Respimat Inhal [place]] 4 gm IH QID PRN # 1 aer.w.adap 04/08/16 Cephalexin [Keflex] 500 mg PO BID #14 capsule 07/16/16 Family Disease History - Family Disease History Family Disease History: Heart Disease: Mother, Son, Other: Father (emphysema, PE ) Review of Systems - Review of Systems Cardiovascular: reports: Shortness of Breath Vital Signs: Vital Signs Temperature 98.3 F 07/22/16 09:00 Pulse Rate 74 07/22/16 09:00 Respiratory Rate 20 07/22/16 09:00 Blood Pressure 118/58 07/22/16 09:00 O2 Sat by Pulse Oximetry (%) 95 07/21/16 21:00 Constitutional: Yes: No Distress, Calm Neck: Yes: Supple Respiratory: Yes: Regular, Diminished Gastrointestinal: Yes: Normal Bowel Sounds, Soft Cardiovascular: Yes: Regular Rate and Rhythm JVD: No Carotid Bruit: No Heart Sounds: Yes: S1, S2 Murmur: Yes: Systolic Murmur, Grade 3 Edema: No - Other Data Labs, Other Data: CBC, BMP 07/22/16 06:15 07/22/16 06:15 SR @ 70 LVH, LAD similar to previous 01/21/2016 Echo: Report Reviewed Ejection Fraction %: LVEF > or = 40 % Problem List - Problems (1) Pulmonary hypertension Code(s): I27.2 - OTHER SECONDARY PULMONARY HYPERTENSION (2) Anemia Code(s): D64.9 - ANEMIA, UNSPECIFIED Qualifiers: Anemia type: iron deficiency Iron deficiency anemia type: chronic blood loss Qualified Code(s): D50.0 - Iron deficiency anemia secondary to blood loss (chronic) (3) Aortic stenosis Code(s): I35.0 - NONRHEUMATIC AORTIC (VALVE) STENOSIS Qualifiers: Cardiac valve disease etiology: nonrheumatic Qualified Code(s): I35.0 - Nonrheumatic aortic (valve) stenosis (4) CAD (coronary artery disease) Code(s): I25.10 - ATHSCL HEART DISEASE OF [place] CORONARY ARTERY W/O ANG PCTRS Qualifiers: Coronary Disease-Associated Artery/Lesion type: [place] artery [place] vs. transplanted heart: [place] heart Associated angina: without angina Qualified Code(s): I25.10 - Atherosclerotic heart disease of [place] coronary artery without angina pectoris (5) COPD (chronic obstructive pulmonary disease) Code(s): J44.9 - CHRONIC OBSTRUCTIVE PULMONARY DISEASE, UNSPECIFIED Qualifiers : COPD type: unspecified COPD Qualified Code(s): J44.9 - Chronic obstructive pulmonary disease, unspecified (6) Diabetes Code(s): E11.9 - TYPE 2 DIABETES MELLITUS WITHOUT COMPLICATIONS Qualifiers: Diabetes mellitus type: type 2 (7) GI bleed Code(s): K92.2 - GASTROINTESTINAL HEMORRHAGE, UNSPECIFIED Qualifiers: GI bleed type/associated pathology: angiodysplasia of stomach and duodenum Qualified Code(s): K31.811 - Angiodysplasia of stomach and duodenum with bleeding (8) Shortness of breath Code(s): R06.02 - SHORTNESS OF BREATH Assessment/Plan 11/28/2014 Echo: cLVH, normal LV size and fxn, severe [place] 0.6 cm^2 MG 36 mmHg, mild MR and TR 07/16/2016 BNP: 581 1. Progressive MALONEY referable to acute on chronic diastolic failure with underlying 2. Severe aortic stenosis previously hesitant for TAVR 3. 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 CAD angina pectoris 5. HTN 6. DM 7. Hypercholesterolemia 8. Hypothyroidism 9. COPD PLAN: 1. Judicious diuresis with monitor diuretic response, renal fxn and electrolytes 2. Continue Coreg 12.5 qd 3. Continue Cozaar 50 qd 4. Continue Lipitor 10 qd 5. Continue ASA 81 qd 6. F/u echocardiogram to assess ventricular and valve fxn, check TSH, Ha1c, BNP , lipid panel, f/u CXR 7. Now willing for TAVR consideration once euvolemic 8. BD, O2 as needed, consider d/c abx, DVT and GI prophylaxis 9. Thank you for consultative opportunity
[2016-07-22] MEDS: FUROSEMIDE 40 MG/4 ML INJECTABLE VIAL IVPB SCH (15:11)
--- NOTE | 2016-07-22 17:14 | PN ---
Progress Note (short form) - Note Progress Note: Consult dictated Guaiac + on exam Recent EGD and colonoscopy x 2 2014 - 03/12 Capsule endoscopy negative 2014 Continue supportive measures Exclude alternate etiologies of chronic anemia: heme eval Ravinder Perez is considering TAVR now
--- NOTE | 2016-07-22 19:31 | CONS ---
DATE OF CONSULTATION: DATE OF DICTATION: 07/22/2016 REQUESTING PHYSICIAN: Jorje Tom M.D. HISTORY OF PRESENT ILLNESS: Patient is an 80-year-old female admitted on the for evaluation of fatigue, weakness. She had been seen a few days prior in the emergency room and found to have a urinary tract infection. She was taking Keflex and was evaluated. Per the H&P, it was also discovered she had suprapubic abdominal pain, lower back pain, and she was admitted for further evaluation. She was last seen in the office February 11, 2016, by my colleague Dr. Kendall Olvera, for her followup of colon polyp. As you will recall, I had seen her in November of 2014 for evaluation of symptomatic anemia with a hemoglobin of 5.8, guaiac positive stool, and she received packed red blood cells transfusions. EGD and colonoscopy were performed by Dr. Blanca, December 22, 2014; EGD showed a small hiatal hernia, and colonoscopy showed mild diverticulosis, anal papillae, and led to the removal of a 1.5-cm proximal transverse colon polyp, 1.2-cm ascending colon polyp, 5-mm polyp at the cecum, and a 1.5-cm polyp at the appendiceal orifice requiring saline assisted polypectomy. She then underwent repeat colonoscopy March 10, 2016, with Dr. Blanca, that revealed 2 flat polyps in the sigmoid colon, two 5-10 mm sessile polyps in the distal transverse colon, three 3-mm and 5-mm and 1-mm sessile polyps in the proximal transverse colon, 7 sessile polyps at the hepatic flexure, three 7-mm, 4-mm, 2-mm sessile polyps in the ascending colon, and 5 polyps at the cecum. Dr. Blanca suggested returning in 1 year for colonoscopy given the multiple polyps that were found. She denies any rectal bleeding. She currently denies any abdominal pain. I have been asked to evaluate for worsening anemia. There has been no melena reported. PAST MEDICAL HISTORY: Includes emphysema, asthma, coronary artery disease, rheumatoid arthritis, osteoporosis, acid reflux, glaucoma, herniated disk, and pinched nerve in the neck, diverticulitis hospitalized in May of 2012, history of gallstones, diabetes mellitus type 2, macular degeneration, fatty liver, obstructive sleep apnea, severe aortic stenosis, and mild to moderate mitral regurgitation noted on echocardiogram December 18, 2014. PAST SURGICAL HISTORY: Appendectomy, tonsillectomy, D&C, bladder repair, cataract removal, umbilical hernia repair, 9 laser eye surgeries, the left eye in 2015. 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 She is a former smoker, quit in 1972. No history of alcohol or intravenous drug abuse or illicit drugs. FAMILY HISTORY: Father had history of emphysema, mother had a history of coronary artery disease as well as arthritis. She has 1 son blind in 1 eye, unknown cause, congenitally poor vision in the other eye. MEDICATION: Prior to admission include Januvia, Synthroid, Glucophage, Cozaar, Coreg, Lipitor, Zantac, vitamin D3, fish oil, Advair Diskus, , Combivent, and Keflex which was started recently because of her history of urinary tract infection. ALLERGIES: Include SULFA medications, QUININE, FLEET ENEMAS, and she has non-drug allergens including VIDAL, ANGORA FUR, DUST, INSECTICIDES, TURPENTINE, and OIL PAINTS. REVIEW OF SYSTEMS: She currently denies any chest pain. She does complain of shortness of breath which is intermittent. She denies any nausea or vomiting. She denies any rectal bleeding, any gross melena. There have been no reports of dysphagia, odynophagia, early satiety. She denies any lower extremity swelling. The remainder of her GI review of systems is noted in the history of present illness. PHYSICAL EXAMINATION: General: The patient is found lying comfortably in her bed, she appeared to be in no apparent distress. Vital signs: She was afebrile, pulse 72, blood pressure 100/61. HEENT: Sclerae are anicteric. Neck: Supple. Cardiovascular: Examination of the heart revealed a systolic ejection murmur and a holosystolic murmur heard best at the left sternal border. Lungs: Mild expiratory wheezing bilaterally. Abdomen: Nondistended. Normoactive bowel sounds. No hepatosplenomegaly was appreciated. No mass was palpated. No hernia detected. No tenderness was elicited. Extremities: No lower extremity edema. Genitourinary: Digital rectal exam, no external lesions, and no masses, dark brown stool in the rectal vault which is guaiac positive. LABORATORY EVALUATION: White blood cell count 7.1, hemoglobin 8.3, hematocrit 24.5, platelets 265. Sodium 140, potassium 4.2, chloride 101, bicarbonate 26, BUN 15, creatinine 0.6, glucose 115, phosphorus 5.0, magnesium of 2.1. AST 13, ALT 14, alkaline phosphatase 49, total bilirubin 0.5 with albumin of 3.1, total protein 6.4. RADIOLOGY REPORTS: She had a chest x-ray revealing no infiltrate or nodule, no change or suspicious findings of lungs. IMPRESSION: This is an 80-year-old female with a chronic anemia, now worse since she has been in the hospital. I suspect that may be contributing to her anemia, and she is noted to be guaiac positive. She has had a recent gastrointestinal evaluation with a colonoscopy within the last year as well as upper endoscopy and capsule endoscopy, all of which were unrevealing in terms of gastrointestinal bleeding source. Would continue to treat things conservatively from a gastrointestinal standpoint, particularly in the setting of severe aortic stenosis, and she tells me she has now decided to go through with repair of the aortic valve, would continue to monitor her hemoglobin and hematocrit, continue her on gastrointestinal prophylaxis. If there are signs of overt ongoing active gastrointestinal bleeding of a life threatening nature, then endoscopic evaluations would be considered at this time, otherwise check iron studies and continue evaluation for alternate forms of her anemia with a hematology consult. She states that she has had anemia for quite some time, extending into her childhood. I thank you for this consultative opportunity. GIOVANNA BILLS DO [id number]
--- NOTE | 2016-07-22 20:37 | CONSULT ---
Consult - text type - Consultation Consultation Note: Ms Valadez is a very pleasant 80 year old female who comes in with complaints of not feeling well. She says this began last week with general weakness and shortness of breath. She says she was getting short of breath on minimal exertion and she was feeling very weak. She has lightheadedness, both at rest and exertion. She says she was feeling feverish with chills. She says she had a productive cough with green sputum.. She denies dizziness, passing out, chest pain, diarrhea, constipation, difficulty or pain on urination, or swelling. She is saying she still feels bad. - Past Medical History Cardiovascular: Yes: Aortic Stenosis, HTN, Hyperlipdemia Pulmonary: Yes: COPD Musculoskeletal: Yes: Osteoarthritis Endocrine: Yes: Diabetes Mellitus, Hypothyroidism - Past Surgical History Past Surgical History: Yes: Appendectomy, Hernia Repair, Tonsillectomy - Smoking History Smoking history: Former smoker - Social History ADL: Independent History of Recent Travel: No Home Medications - Allergies Allergies/Adverse Reactions: Allergies Allergy/AdvReac Type Severity Reaction Status Date / Time quinine [Quinine] Allergy Mild Rash Verified 07/19/16 13:30 Sulfa (Sulfonamide Allergy Mild Rash Verified 07/19/16 13:30 Antibiotics) [Sulfa(Sulfonamide Antibiotics)] - Home Medications Home Medications: Ambulatory Orders Carvedilol [Coreg] 6.25 mg PO DAILY 12/18/14 Levothyroxine [Synthroid -] 25 mcg PO DAILY 12/18/14 Losartan Potassium [Cozaar] 50 mg PO DAILY 12/18/14 Metformin HCl [Glucophage -] 500 mg PO TID 12/18/14 Sertraline HCl [Zoloft -] 25 mg PO HS 12/18/14 Sitagliptin Phosphate [Januvia] 100 mg PO DAILY 12/18/14 Atorvastatin Ca [Lipitor] 10 mg PO HS #1 tablet 12/22/14 Ranitidine [Zantac -] 150 mg PO BID #1 tablet 12/22/14 Cholecalciferol (Vitamin D3) [Vitamin D3 -] 1,000 unit PO DAILY 03/10/16 [place]-3 Fatty Acids [Fish Oil] 300 mg PO BID 03/10/16 Calcium Carb/Vitamin D3/Vit K1 [Citracal Soft Chew] 1 each PO DAILY 04/04/16 Fluticasone/Salmeterol [Advair 250-50 Diskus] 1 each IH BID 04/04/16 Ipratropium/Albuterol Sulfate [Combivent Respimat Inhal [place]] 4 gm IH QID PRN # 1 aer.w.adap 04/08/16 Cephalexin [Keflex] 500 mg PO BID #14 capsule 07/16/16 Family Disease History - Family Disease History Family Disease History: Heart Disease: Mother, Son, Other: Father (emphysema, PE ) Physical Examination Vital Signs: Vital Signs Temperature 98.3 F 07/19/16 18:36 Pulse Rate 71 07/20/16 05:30 Respiratory Rate 18 07/20/16 05:30 Blood Pressure 130/72 07/20/16 05:30 O2 Sat by Pulse Oximetry (%) 97 07/20/16 05:30 Constitutional: Yes: Well Nourished, No Distress, Calm Eyes: Yes: Conjunctiva Clear, EOM Intact HENT: Yes: Atraumatic, Normocephalic Cardiovascular: Yes: Regular Rate and Rhythm, Murmur. No: Gallop, Rub Respiratory: Yes: Regular, CTA Bilaterally. No: Rales, Rhonchi, Wheezes Gastrointestinal: Yes: Normal Bowel Sounds, Soft. No: Distention, Tenderness Extremities: Yes: WNL Edema: No Abnormal Lab Results 07/22/16 07/22/16 06:15 06:15 RBC 2.82 L Hgb 8.3 L Hct 24.5 L Monocytes % 13.9 H Random Glucose 115 H Phosphorus 5.0 H Imaging - Results Chest X-ray: Report Reviewed, Image Reviewed A/P 80 y/o patient with 1. Progressive MALONEY -- acute on chronic diastolic failure 2. Severe aortic stenosis now willing for TAVR 3. Anemia 4. CAD angina pectoris 5. HTN 6. DM 7. Hypercholesterolemia 8. Hypothyroidism 9. COPD On empiric antibiotics/iv diuretics for pneumonia/CHF Anemia: Previously with ferritin of 8 and iron sat of 7% in 2015 Had EGD/colonoscopy--s/p multiple polypectomies/Capsule last year --unrevealing ? AVMs Currently normocytic recheck iron studies/B 12/folate/TSH/ESR/CRP/Protein studies/Flow/LDH/hapto/ lucho/retic check stool occult Has been on ferrex at home will transfuse for Hgb < 8 with lasix diuresis
[2016-07-22] MEDS: SERTRALINE HCL 25 MG TABLET (FP) PO SCH (21:27)
[2016-07-22] MEDS: ATORVASTATIN CA 10 MG TABLET (FP) PO SCH (21:27)
[2016-07-23] MEDS: INSULIN SLIDING SCALE (NOVOLOG) 1 VIAL SQ SCH ×4 (06:33→22:00)
[2016-07-23] MEDS: LEVOTHYROXINE NA 25 MCG TABLET (FP) PO SCH (06:34)
[2016-07-23] MEDS: sitaGLIPtin PHOSPHATE 100 MG TABLET (FP) PO SCH (06:34)
[2016-07-23] MEDS: metFORMIN HCL 500 MG TABLET (FP) PO SCH ×3 (06:34→16:50)
[2016-07-23 08:27] LABS: BASOPHIL 0.7 % (0-2.0); EOSINOPHIL 3.4 % (0-4.5); MCH 29.5 pg (25.7-33.7); MCHC 33.8 g/dl (32.0-36.0); MEAN CELL VOLUME 87.2 fl (80-96); MEAN PLT VOLUME 8.3 fl (7.5-11.1); NEUTROPHILS 51.1 % (42.8-82.8); PLATELET COUNT 297 K/MM3 (134-434); RDW 15.5 % (11.6-15.6); WHITE BLOOD COUNT 7.2 K/mm3 (4.0-10.0)
[2016-07-23 08:47] LABS: CALCIUM 8.1 mg/dL (8.5-10.1)
[2016-07-23 08:55] LABS: ALK PHOS 45 U/L (45-117); ANION GAP 10 (8-16); BILIRUBIN,TOTAL 0.4 mg/dL (0.2-1.0); CO2 28 mmol/L (21-32); CREATININE 0.7 mg/dL (0.55-1.02); FERRITIN 12.956 ng/ml (6.9-282.5); GLUCOSE,RANDOM 118 mg/dL (74-106); SGOT/AST 15 U/L (15-37); SGPT/ALT 16 U/L (12-78); TOT PROT 6.2 g/dl (6.4-8.2)
[2016-07-23 09:00] LABS: FREE T4 1.21 ng/dl (0.76-1.46); LDH 164 U/L (84-246)
[2016-07-23 09:06] LABS: C-REACTIVE PROTEIN < 0.3 MG/DL (0.00-0.3); CHOLESTEROL 133 mg/dL (50-200); LDL CHOLESTEROL (ONLY SJRH) 58 mg/dL (5-100)
[2016-07-23 09:07] LABS: THYROID STIMULATING HORMONE 2.5 uIU/ml (0.358-3.74)
[2016-07-23] MEDS ORDERED: PT OWN MED DRAWER 7, Y5N ONE (09:13)
[2016-07-23] MEDS: CHOLECALCIFEROL (VITAMIN D3) 1,000 UNIT TABLET (FP) PO SCH (09:21)
[2016-07-23] MEDS: LACTOBACILLUS ACIDOPHILUS 1 EACH TAB (FP) PO SCH (09:21)
[2016-07-23] MEDS: ASPIRIN 81 MG CHEWABLE TABLETS PO SCH (09:21)
[2016-07-23] MEDS: ENOXAPARIN NA (PORCINE) 40 MG/0.4 ML DISP.SYRIN SQ SCH (09:22)
[2016-07-23] MEDS: BUDESONIDE/FORMETEROL FUMARATE 80/4.5 mcg INHALER IH SCH ×2 (09:22→22:00)
[2016-07-23] MEDS: CEFTRIAXONE 50 ML IVPB SCH (09:22)
[2016-07-23] MEDS: RANITIDINE HCL 150 MG TABLET (FP) PO SCH ×2 (09:22→21:37)
[2016-07-23] MEDS: CARVEDILOL 6.25 MG TABLET (FP) PO SCH ×2 (09:22→21:37)
[2016-07-23] MEDS: LOSARTAN POTASSIUM 50 MG TABLET (FP) PO SCH (09:22)
[2016-07-23] MEDS: FUROSEMIDE 40 MG/4 ML INJECTABLE VIAL IVPB SCH (09:22)
[2016-07-23 09:55] LABS: CREATININE 0.7 mg/dL (0.55-1.02); MAGNESIUM 2.1 mg/dL (1.8-2.4); PHOSPHOROUS 4.9 mg/dL (2.5-4.9)
[2016-07-23 09:56] LABS: CALCIUM 8.5 mg/dL (8.5-10.1)
[2016-07-23] MEDS: AZITHROMYCIN IVPB 250 MG in DEXTROSE 5%-WATER - 250 ML IVPB SCH (10:41)
--- NOTE | 2016-07-23 10:48 | PN ---
Progress Note, Physician History of Present Illness: Shortness of breath, orthopnea, decreased exercise capacity, and nonproductive cough improving with diuresis. - Current Medication List Current Medications: Active Medications Acetaminophen (Tylenol -) 650 mg PO Q4H PRN PRN Reason: FEVER OR PAIN Albuterol/Ipratropium (Duoneb -) 1 amp NEB Q6H PRN PRN Reason: SHORTNESS OF BREATH Last Admin: 07/22/16 05:42 Dose: 1 amp Aspirin (Asa -) 81 mg PO DAILY [facility] Last Admin: 07/23/16 09:21 Dose: 81 mg Atorvastatin Calcium (Lipitor -) 10 mg PO HS [facility] Last Admin: 07/22/16 21:27 Dose: 10 mg Budesonide/Formoterol Fumarate (Symbicort 80/4.5mcg -) 2 puff IH BID [facility] Last Admin: 07/23/16 09:22 Dose: 2 puff Carvedilol (Coreg -) 6.25 mg PO BID [facility] Last Admin: 07/23/16 09:22 Dose: 6.25 mg Cholecalciferol (Vitamin D3 -) 1,000 unit PO DAILY [facility] Last Admin: 07/23/16 09:21 Dose: 1,000 unit Enoxaparin Sodium (Lovenox -) 40 mg SQ DAILY [facility] Last Admin: 07/23/16 09:22 Dose: 40 mg Furosemide (Lasix Injection -) 40 mg IVPB DAILY [facility] Last Admin: 07/23/16 09:22 Dose: 40 mg Azithromycin 250 mg/ Dextrose 250 mls @ 250 mls/hr IVPB DAILY [facility] Last Admin: 07/23/16 10:41 Dose: 250 mls/hr Ceftriaxone Sodium (Rocephin 1gm Ivpb (Pre-Docked)) 50 mls @ 100 mls/hr IVPB DAILY [facility] Last Admin: 07/23/16 09:22 Dose: 100 mls/hr Insulin Aspart (Novolog Vial Sliding Scale -) 1 vial SQ ACHS [facility] PRN Reason: Protocol Last Admin: 07/23/16 06:33 Dose: Not Given Lactobacillus Acidophilus (Bacid -) 1 tab PO DAILY [facility] Last Admin: 07/23/16 09:21 Dose: 1 tab Levothyroxine Sodium (Synthroid -) 25 mcg PO ACBK [facility] Last Admin: 07/23/16 06:34 Dose: 25 mcg Losartan Potassium (Cozaar -) 50 mg PO DAILY [facility] Last Admin: 07/23/16 09:22 Dose: 50 mg Metformin HCl (Glucophage -) 500 mg PO TIDAC [facility] Last Admin: 07/23/16 06:34 Dose: 500 mg Ranitidine HCl (Zantac -) 150 mg PO BID [facility] Last Admin: 07/23/16 09:22 Dose: 150 mg Sertraline HCl (Zoloft -) 25 mg PO HS [facility] Last Admin: 07/22/16 21:27 Dose: 25 mg Sitagliptin Phosphate (Januvia -) 100 mg PO ACBK [facility] Last Admin: 07/23/16 06:34 Dose: 100 mg - Objective Vital Signs: Vital Signs Temperature 98.4 F 07/23/16 06:01 Pulse Rate 66 07/23/16 10:38 Respiratory Rate 20 07/23/16 06:01 Blood Pressure 104/50 07/23/16 06:01 O2 Sat by Pulse Oximetry (%) 96 07/23/16 10:38 Constitutional: Yes: No Distress, Calm Neck: Yes: Supple Cardiovascular: Yes: Regular Rate and Rhythm, Murmur (3/6) Respiratory: Yes: Regular, Diminished Gastrointestinal: Yes: Normal Bowel Sounds, Soft Edema: No Labs: CBC, BMP 07/23/16 06:30 07/23/16 06:30 - ....Imaging Chest X-ray: Report Reviewed (NAD) Problem List - Problems (1) Pulmonary hypertension Code(s): I27.2 - OTHER SECONDARY PULMONARY HYPERTENSION (2) Anemia Code(s): D64.9 - ANEMIA, UNSPECIFIED Qualifiers: Anemia type: iron deficiency Iron deficiency anemia type: chronic blood loss Qualified Code(s): D50.0 - Iron deficiency anemia secondary to blood loss (chronic) (3) Aortic stenosis Code(s): I35.0 - NONRHEUMATIC AORTIC (VALVE) STENOSIS Qualifiers: Cardiac valve disease etiology: nonrheumatic Qualified Code(s): I35.0 - Nonrheumatic aortic (valve) stenosis (4) CAD (coronary artery disease) Code(s): I25.10 - ATHSCL HEART DISEASE OF [place] CORONARY ARTERY W/O ANG PCTRS Qualifiers: Coronary Disease-Associated Artery/Lesion type: [place] artery [place] vs. transplanted heart: [place] heart Associated angina: without angina Qualified Code(s): I25.10 - Atherosclerotic heart disease of [place] coronary artery without angina pectoris (5) COPD (chronic obstructive pulmonary disease) Code(s): J44.9 - CHRONIC OBSTRUCTIVE PULMONARY DISEASE, UNSPECIFIED Qualifiers : COPD type: unspecified COPD Qualified Code(s): J44.9 - Chronic obstructive pulmonary disease, unspecified (6) Diabetes Code(s): E11.9 - TYPE 2 DIABETES MELLITUS WITHOUT COMPLICATIONS Qualifiers: Diabetes mellitus type: type 2 (7) GI bleed Code(s): K92.2 - GASTROINTESTINAL HEMORRHAGE, UNSPECIFIED Qualifiers: GI bleed type/associated pathology: angiodysplasia of stomach and duodenum Qualified Code(s): K31.811 - Angiodysplasia of stomach and duodenum with bleeding (8) Shortness of breath Code(s): R06.02 - SHORTNESS OF BREATH Assessment/Plan 11/28/2014 Echo: cLVH, normal LV size and fxn, severe [place] 0.6 cm^2 MG 36 mmHg, mild MR and TR 07/16/2016 BNP: 581 07/23/2016 Echo: Normal biventricular size and fxn, severe [place] 0.65 cm^2 MG 65 mmHg, tr-mild AR, RVSP 40-50 mmHg 1. Improving MALONEY referable to acute on chronic diastolic failure with underlying 2. Severe aortic stenosis previously hesitant for TAVR 3. 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 CAD angina pectoris 5. HTN 6. DM 7. Hypercholesterolemia 8. Hypothyroidism 9. COPD PLAN: 1. Continue diuresis with monitor diuretic response, renal fxn and electrolytes 2. Continue Coreg 6.25 bid 3. Continue Cozaar 50 qd 4. Continue Lipitor 10 qd 5. Continue ASA 81 qd 7. Now willing for TAVR consideration once euvolemic 8. BD, O2 as needed, consider d/c abx, DVT and GI prophylaxis
--- NOTE | 2016-07-23 15:36 | PN ---
Progress Note (short form) - Note Progress Note: PULMONARY VSS/AFEBRILE NO ACUTE DISTRESS/NOT WEARING O2 ANICTERIC BIBASILAR CRACKLES S1S2 HIGH PITCHED SYSTOLIC MURMUR DIFFUSE PRECORDIUM BS+ SOFT NO EDEMA LABS/MEDS/NOTES/IMAGING REVIEWED severe aortic stenosis COPD/Emphysema Pulmonary HTN r/o Pneumonia HTN DM - continue empiric antibiotics for pneumonia - O2, inhaled bronchodilators as needed - cardiology evaluation/?transfer for further eval of aortic valve - DVT prophylaxis - will follow Sekou JOHNSON MD
--- NOTE | 2016-07-23 16:03 | PN ---
Progress Note, Physician Chief Complaint: Ms Valadez says she is feeling better today. Says her breathing is improved. No cp or n/v. - Current Medication List Current Medications: Active Medications Acetaminophen (Tylenol -) 650 mg PO Q4H PRN PRN Reason: FEVER OR PAIN Albuterol/Ipratropium (Duoneb -) 1 amp NEB Q6H PRN PRN Reason: SHORTNESS OF BREATH Last Admin: 07/22/16 05:42 Dose: 1 amp Aspirin (Asa -) 81 mg PO DAILY [facility] Last Admin: 07/23/16 09:21 Dose: 81 mg Atorvastatin Calcium (Lipitor -) 10 mg PO HS [facility] Last Admin: 07/22/16 21:27 Dose: 10 mg Budesonide/Formoterol Fumarate (Symbicort 80/4.5mcg -) 2 puff IH BID [facility] Last Admin: 07/23/16 09:22 Dose: 2 puff Carvedilol (Coreg -) 6.25 mg PO BID [facility] Last Admin: 07/23/16 09:22 Dose: 6.25 mg Cholecalciferol (Vitamin D3 -) 1,000 unit PO DAILY [facility] Last Admin: 07/23/16 09:21 Dose: 1,000 unit Enoxaparin Sodium (Lovenox -) 40 mg SQ DAILY [facility] Last Admin: 07/23/16 09:22 Dose: 40 mg Furosemide (Lasix Injection -) 40 mg IVPB DAILY [facility] Last Admin: 07/23/16 09:22 Dose: 40 mg Azithromycin 250 mg/ Dextrose 250 mls @ 250 mls/hr IVPB DAILY [facility] Last Admin: 07/23/16 10:41 Dose: 250 mls/hr Ceftriaxone Sodium (Rocephin 1gm Ivpb (Pre-Docked)) 50 mls @ 100 mls/hr IVPB DAILY [facility] Last Admin: 07/23/16 09:22 Dose: 100 mls/hr Insulin Aspart (Novolog Vial Sliding Scale -) 1 vial SQ ACHS [facility] PRN Reason: Protocol Last Admin: 07/23/16 12:00 Dose: Not Given Lactobacillus Acidophilus (Bacid -) 1 tab PO DAILY [facility] Last Admin: 07/23/16 09:21 Dose: 1 tab Levothyroxine Sodium (Synthroid -) 25 mcg PO ACBK [facility] Last Admin: 07/23/16 06:34 Dose: 25 mcg Losartan Potassium (Cozaar -) 50 mg PO DAILY [facility] Last Admin: 07/23/16 09:22 Dose: 50 mg Metformin HCl (Glucophage -) 500 mg PO TIDAC [facility] Last Admin: 07/23/16 12:00 Dose: Not Given Ranitidine HCl (Zantac -) 150 mg PO BID [facility] Last Admin: 07/23/16 09:22 Dose: 150 mg Sertraline HCl (Zoloft -) 25 mg PO HS [facility] Last Admin: 07/22/16 21:27 Dose: 25 mg Sitagliptin Phosphate (Januvia -) 100 mg PO ACBK [facility] Last Admin: 07/23/16 06:34 Dose: 100 mg - Objective Vital Signs: Vital Signs Temperature 97.5 F L 07/23/16 14:58 Pulse Rate 68 07/23/16 14:58 Respiratory Rate 18 07/23/16 14:58 Blood Pressure 100/52 07/23/16 14:58 O2 Sat by Pulse Oximetry (%) 96 07/23/16 11:25 Constitutional: Yes: Well Nourished, No Distress, Calm Cardiovascular: Yes: Regular Rate and Rhythm, Murmur. No: Gallop, Rub Respiratory: Yes: Regular, CTA Bilaterally, On Nasal O2. No: Rales, Rhonchi, Wheezes Gastrointestinal: Yes: Normal Bowel Sounds, Soft. No: Distention, Tenderness Extremities: Yes: WNL Edema: No Labs: CBC, BMP 07/23/16 06:30 07/23/16 06:30 Problem List - Problems (1) Pneumonia Code(s): J18.9 - PNEUMONIA, UNSPECIFIED ORGANISM Qualifiers: Pneumonia type: due to unspecified organism Laterality: bilateral Lung location: lower lobe of lung Qualified Code(s): J18.9 - Pneumonia, unspecified organism (2) Weakness Code(s): R53.1 - WEAKNESS (3) Aortic stenosis Code(s): I35.0 - NONRHEUMATIC AORTIC (VALVE) STENOSIS Qualifiers: Cardiac valve disease etiology: nonrheumatic Qualified Code(s): I35.0 - Nonrheumatic aortic (valve) stenosis (4) CAD (coronary artery disease) Code(s): I25.10 - ATHSCL HEART DISEASE OF [place] CORONARY ARTERY W/O ANG PCTRS Qualifiers: Coronary Disease-Associated Artery/Lesion type: [place] artery [place] vs. transplanted heart: [place] heart Associated angina: without angina Qualified Code(s): I25.10 - Atherosclerotic heart disease of [place] coronary artery without angina pectoris (5) COPD (chronic obstructive pulmonary disease) Code(s): J44.9 - CHRONIC OBSTRUCTIVE PULMONARY DISEASE, UNSPECIFIED Qualifiers : COPD type: unspecified COPD Qualified Code(s): J44.9 - Chronic obstructive pulmonary disease, unspecified (6) Diabetes Code(s): E11.9 - TYPE 2 DIABETES MELLITUS WITHOUT COMPLICATIONS Qualifiers: Diabetes mellitus type: type 2 (7) GERD (gastroesophageal reflux disease) Code(s): K21.9 - GASTRO-ESOPHAGEAL REFLUX DISEASE WITHOUT ESOPHAGITIS (8) HTN (hypertension) Code(s): I10 - ESSENTIAL (PRIMARY) HYPERTENSION Assessment/Plan (1) Pneumonia Assessment/Plan: -influenza negative -continue rocephin and zithromax -antibiotics day 5, stop zithromax Code(s): J18.9 - PNEUMONIA, UNSPECIFIED ORGANISM Qualifiers: Pneumonia type: due to unspecified organism Laterality: bilateral Lung location: lower lobe of lung Qualified Code(s): J18.9 - Pneumonia, unspecified organism (2) Weakness Assessment/Plan: -continue PT Code(s): R53.1 - WEAKNESS (3) Aortic stenosis Assessment/Plan: -appreciate cardiology assistance -plan for transfer on Tuesday, patient agreeable to TAVR Code(s): I35.0 - NONRHEUMATIC AORTIC (VALVE) STENOSIS (4) CAD (coronary artery disease) Assessment/Plan: -quiescent -continue home regimen Code(s): I25.10 - ATHSCL HEART DISEASE OF [place] CORONARY ARTERY W/O ANG PCTRS (5) COPD (chronic obstructive pulmonary disease) Assessment/Plan: -patient's lungs are clear and good air movement -appreciate pulmonary assistance Code(s): J44.9 - CHRONIC OBSTRUCTIVE PULMONARY DISEASE, UNSPECIFIED Qualifiers : COPD type: unspecified COPD Qualified Code(s): J44.9 - Chronic obstructive pulmonary disease, unspecified (6) Diabetes Assessment/Plan: -diabetic diet -continue home regimen -SSI Code(s): E11.9 - TYPE 2 DIABETES MELLITUS WITHOUT COMPLICATIONS (7) GERD (gastroesophageal reflux disease) Assessment/Plan: -continue zantac Code(s): K21.9 - GASTRO-ESOPHAGEAL REFLUX DISEASE WITHOUT ESOPHAGITIS (8) HTN (hypertension) Assessment/Plan: -controlled -continue current regimen Code(s): I10 - ESSENTIAL (PRIMARY) HYPERTENSION (9) Anemia -appreciate GI and hematology assistance -agree with transfusion if needed
[2016-07-23] MEDS: ATORVASTATIN CA 10 MG TABLET (FP) PO SCH (21:37)
[2016-07-23] MEDS: SERTRALINE HCL 25 MG TABLET (FP) PO SCH (21:37)
[2016-07-24 06:07] LABS: SERUM IRON 33 ug/dL (27-139); TOTAL IRON BINDING CAPACITY 333 ug/dL (250-450); UIBC 300 ug/dL (118-369)
[2016-07-24] MEDS: LEVOTHYROXINE NA 25 MCG TABLET (FP) PO SCH (06:46)
[2016-07-24] MEDS: metFORMIN HCL 500 MG TABLET (FP) PO SCH ×4 (06:47→18:14)
[2016-07-24] MEDS: sitaGLIPtin PHOSPHATE 100 MG TABLET (FP) PO SCH (06:48)
[2016-07-24] MEDS: INSULIN SLIDING SCALE (NOVOLOG) 1 VIAL SQ SCH ×4 (07:31→22:32)
[2016-07-24 07:46] LABS: BASOPHIL 0.8 % (0-2.0); EOSINOPHIL 3.9 % (0-4.5); MCH 29.2 pg (25.7-33.7); MCHC 33.8 g/dl (32.0-36.0); MEAN CELL VOLUME 86.4 fl (80-96); MEAN PLT VOLUME 8.1 fl (7.5-11.1); PLATELET COUNT 271 K/MM3 (134-434); RDW 15.2 % (11.6-15.6); WHITE BLOOD COUNT 6.6 K/mm3 (4.0-10.0)
[2016-07-24 08:32] LABS: CALCIUM 8.9 mg/dL (8.5-10.1); CREATININE 0.7 mg/dL (0.55-1.02); PHOSPHOROUS 5.1 mg/dL (2.5-4.9)
--- NOTE | 2016-07-24 09:41 | PN ---
Progress Note (short form) - Note Progress Note: Patient seen and examined Chart reviewed at length. Complicated situation of severe in the presence of multiple co-morbidities and marked anemia with recent decline in H/H which will require a transfusion prior to planned transfer for TAVR on 07/26/16 Currently feeling well sitting up OOB in chair. Denies new chest discomfort,palpitations, or angina symptoms. No new GI signs/ symptoms. Selected Entries 07/23/16 07/24/16 21:00 06:17 Temperature 97.7 F Pulse Rate 68 Respiratory 20 Rate Blood Pressure 110/68 O2 Sat by Pulse 96 Oximetry (%) Oxygen Delivery Room Air Method Laboratory Tests 07/23/16 07/24/16 07/24/16 06:30 06:15 06:15 WBC 6.6 Hgb 7.3 L Hct 21.5 L MCV 86.4 Plt Count 271 Retic Count 5.24 H Sodium 136 Potassium 4.1 Chloride 97 L Carbon Dioxide 28 BUN 31 H D Creatinine 0.7 Random Glucose 122 H Calcium 8.9 Phosphorus 5.1 H Magnesium 2.0 Chest Scattered rhonchi, decreased post cough No wheezing Cor RRR High-pitched systoic murmur 3/6 URSB and ULSB with transmission into both carotids Abd Distended soft Non-tender Ext No new edema No phlebitis Neuro No new focal deficit Assessment and Plan Aortic stenosis ECHO noted For TAVR when stable Anemia 7.3/21.5 Progressive No clear evidence of alternate cause of anemia other than GI blood loss/ Fe deficiency. Retic count noted. Notes describe possible angiodysplasia ( which is associated with aortic stenosis) Will transfuse 2 units slowly COPD Former smoker, Pneumonitis Continue current Rx Weakness/Fatigue Multifactorial ASHD Stable as per cardiology notes Dyslipidemia Stable DM As per old charts GERD Stable Pulmonary Hypertension Monitor Hypothyroid Stable Osteoarthritis Chronic stable HTN Stable Hyperphosphatemia Recheck Transfuse 1 unit PRBC today and one tomorrow
[2016-07-24] MEDS ORDERED: ALBUTEROL SO4 2.5/IPRATROPIUM 0.5 INH SOL 3 ML VIAL.NEB. NEB SCH (10:15)
[2016-07-24] MEDS ORDERED: ALBUTEROL SO4 2.5/IPRATROPIUM 0.5 INH SOL 3 ML VIAL.NEB. NEB PRN (10:15)
[2016-07-24] MEDS: CHOLECALCIFEROL (VITAMIN D3) 1,000 UNIT TABLET (FP) PO SCH (10:25)
--- NOTE | 2016-07-24 10:25 | PN ---
Progress Note (short form) - Note Progress Note: PULMONARY VSS/AFEBRILE NO ACUTE DISTRESS/NOT WEARING O2 ANICTERIC BIBASILAR CRACKLES S1S2 HIGH PITCHED SYSTOLIC MURMUR DIFFUSE PRECORDIUM BS+ SOFT NO EDEMA LABS/MEDS/NOTES/IMAGING REVIEWED severe aortic stenosis COPD/Emphysema Pulmonary HTN r/o Pneumonia HTN DM - continue empiric antibiotics for pneumonia day #5 - O2, inhaled bronchodilators as needed - scheduled for tavr - DVT prophylaxis/transfusion scheduled - will follow Sekou JOHNSON MD
[2016-07-24] MEDS: CARVEDILOL 6.25 MG TABLET (FP) PO SCH ×2 (10:26→22:27)
[2016-07-24] MEDS: CEFTRIAXONE 50 ML IVPB SCH (10:26)
[2016-07-24] MEDS: RANITIDINE HCL 150 MG TABLET (FP) PO SCH ×2 (10:26→22:27)
[2016-07-24] MEDS: ENOXAPARIN NA (PORCINE) 40 MG/0.4 ML DISP.SYRIN SQ SCH (10:26)
[2016-07-24] MEDS: ASPIRIN 81 MG CHEWABLE TABLETS PO SCH (10:26)
[2016-07-24] MEDS: LACTOBACILLUS ACIDOPHILUS 1 EACH TAB (FP) PO SCH (10:26)
[2016-07-24] MEDS: LOSARTAN POTASSIUM 50 MG TABLET (FP) PO SCH (10:26)
[2016-07-24] MEDS: BUDESONIDE/FORMETEROL FUMARATE 80/4.5 mcg INHALER IH SCH ×2 (10:28→22:32)
[2016-07-24] MEDS: AZITHROMYCIN IVPB 250 MG in DEXTROSE 5%-WATER - 250 ML IVPB SCH (11:23)
[2016-07-24] MEDS: FUROSEMIDE 40 MG/4 ML INJECTABLE VIAL IVPB SCH ×2 (17:16→22:34)
--- NOTE | 2016-07-24 18:18 | PN ---
Progress Note (short form) - Note Progress Note: Chief Complaint: Events noted, notes reviewed, denies any chest pain, dyspnea persists but improving History of Present Illness: Seen and examined. Events noted, notes reviewed, denies any chest pain, dyspnea persists but improving Echocardiography performed 07/23/2016 revealed normal bi-ventricular size and function, severe [place] 0.65 cm2 MG 65 mmHg, trace-mild AR, RVSP 40-50 mmHg - Current Medication List Current Medications Acetaminophen (Tylenol -) 650 mg PO Q4H PRN PRN Reason: FEVER OR PAIN Albuterol/Ipratropium (Duoneb -) 1 amp NEB Q6H PRN PRN Reason: ASTHMA Aspirin (Asa -) 81 mg PO DAILY [facility] Last Admin: 07/24/16 10:26 Dose: 81 mg Atorvastatin Calcium (Lipitor -) 10 mg PO HS [facility] Last Admin: 07/23/16 21:37 Dose: 10 mg Budesonide/Formoterol Fumarate (Symbicort 80/4.5mcg -) 2 puff IH BID [facility] Last Admin: 07/24/16 10:28 Dose: 2 puff Carvedilol (Coreg -) 6.25 mg PO BID [facility] Last Admin: 07/24/16 10:26 Dose: 6.25 mg Cholecalciferol (Vitamin D3 -) 1,000 unit PO DAILY [facility] Last Admin: 07/24/16 10:25 Dose: 1,000 unit Enoxaparin Sodium (Lovenox -) 40 mg SQ DAILY [facility] Last Admin: 07/24/16 10:26 Dose: 40 mg Furosemide (Lasix Injection -) 40 mg IVPB DAILY [facility] Azithromycin 250 mg/ Dextrose 250 mls @ 250 mls/hr IVPB DAILY [facility] Last Admin: 07/24/16 11:23 Dose: 250 mls/hr Ceftriaxone Sodium (Rocephin 1gm Ivpb (Pre-Docked)) 50 mls @ 100 mls/hr IVPB DAILY [facility] Last Admin: 07/24/16 10:26 Dose: 100 mls/hr Insulin Aspart (Novolog Vial Sliding Scale -) 1 vial SQ ACHS [facility] PRN Reason: Protocol Last Admin: 07/24/16 17:20 Dose: Not Given Lactobacillus Acidophilus (Bacid -) 1 tab PO DAILY [facility] Last Admin: 07/24/16 10:26 Dose: 1 tab Levothyroxine Sodium (Synthroid -) 25 mcg PO ACBK [facility] Last Admin: 07/24/16 06:46 Dose: 25 mcg Losartan Potassium (Cozaar -) 50 mg PO DAILY [facility] Last Admin: 07/24/16 10:26 Dose: Not Given Metformin HCl (Glucophage -) 500 mg PO TIDAC [facility] Last Admin: 07/24/16 11:15 Dose: Not Given Ranitidine HCl (Zantac -) 150 mg PO BID [facility] Last Admin: 07/24/16 10:26 Dose: 150 mg Sertraline HCl (Zoloft -) 25 mg PO HS [facility] Last Admin: 07/23/16 21:37 Dose: 25 mg Sitagliptin Phosphate (Januvia -) 100 mg PO ACBK [facility] Last Admin: 07/24/16 06:48 Dose: 100 mg - Objective Vital Signs: Last Vital Signs Temp Pulse Resp BP Pulse Ox 98.0 F 69 20 100/46 93 L 07/24/16 15:18 07/24/16 15:18 07/24/16 15:18 07/24/16 15:18 07/24/16 14:15 Constitutional: No Distress, Calm Neck: Supple Negative JVD Cardiovascular: S1 S2 Regular Rate and Rhythm Grade 3-4/6 AIRAM Respiratory: Diminished at the Bases Bilaterally Gastrointestinal: Soft Benign Normal Bowel Sounds Ext: No Edema Labs: CBC, BMP 07/24/16 06:15 07/24/16 06:15 Assessment/Plan ASSESSMENT: 1. Acute on chronic diastolic failure with class II-III NYHA classification LV failure, resolving 2. Severe-critical aortic valve stenosis for TAVR 3. CAD angina pectoris 4. HTN 5. DM 6. Hypercholesterolemia 7. Hypothyroidism 8. COPD 9. 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 Continue Lasix with close monitoring of renal function 2. Continue Coreg 3. Continue Cozaar 4. Continue Lipitor 5. Continue ASA with caution 6. To proceed with TAVR evaluation once euvolemic, plan for R&LH cardiac catheterization coronary angiogrpahy this coming week Kezia Benz MD
[2016-07-24] MEDS ORDERED: PT OWN MED DRAWER 7, Y5N ONE (21:22)
[2016-07-24] MEDS: SERTRALINE HCL 25 MG TABLET (FP) PO SCH (22:27)
[2016-07-24] MEDS: ATORVASTATIN CA 10 MG TABLET (FP) PO SCH (22:27)
[2016-07-25] MEDS ORDERED: PT OWN MED DRAWER 7, Y5N ONE ×3 (05:51→23:57)
[2016-07-25] MEDS: metFORMIN HCL 500 MG TABLET (FP) PO SCH ×3 (06:00→18:29)
[2016-07-25 06:36] LABS: HEMATOCRIT 23.8 % (34.0-46.6)
[2016-07-25] MEDS: sitaGLIPtin PHOSPHATE 100 MG TABLET (FP) PO SCH (06:40)
[2016-07-25] MEDS: INSULIN SLIDING SCALE (NOVOLOG) 1 VIAL SQ SCH ×4 (06:42→22:22)
[2016-07-25] MEDS: LEVOTHYROXINE NA 25 MCG TABLET (FP) PO SCH (06:42)
[2016-07-25 07:53] LABS: BASOPHIL 0.4 % (0-2.0); EOSINOPHIL 2.2 % (0-4.5); MCH 28.9 pg (25.7-33.7); MCHC 33.9 g/dl (32.0-36.0); MEAN CELL VOLUME 85.2 fl (80-96); MEAN PLT VOLUME 8.2 fl (7.5-11.1); PLATELET COUNT 288 K/MM3 (134-434); WHITE BLOOD COUNT 7.3 K/mm3 (4.0-10.0)
[2016-07-25 08:35] LABS: ALBUMIN 3.2 g/dl (3.4-5.0); ANION GAP 9 (8-16); CO2 29 mmol/L (21-32); GLUCOSE,RANDOM 112 mg/dL (74-106)
[2016-07-25 08:38] LABS: ALK PHOS 43 U/L (45-117); BILIRUBIN,TOTAL 0.8 mg/dL (0.2-1.0); CREATININE 0.7 mg/dL (0.55-1.02); PHOSPHOROUS 3.8 mg/dL (2.5-4.9); SGOT/AST 17 U/L (15-37); SGPT/ALT 13 U/L (12-78); TOT PROT 6.4 g/dl (6.4-8.2)
--- NOTE | 2016-07-25 10:05 | PN ---
Progress Note (short form) - Note Progress Note: Patient seen and examined Chart reviewed at length. Complicated situation of severe in the presence of multiple co-morbidities and marked anemia with recent decline in H/H. Transfused 1 unit PRBCs yesterday and will order at least one more unit for today. May require a third unit as well. Planned transfer for cardiac catheterization and eventual TAVR on 07/26/16 Currently feeling well sitting up at the side of the bed. Denies new chest discomfort, palpitations, or angina symptoms. No new GI signs/symptoms. [employer] notes and labs reviewed. Selected Entries 07/25/16 06:20 Temperature 98.3 F Pulse Rate 69 Respiratory 18 Rate Blood Pressure 113/55 Laboratory Tests 07/25/16 07/25/16 07:15 07:15 WBC 7.3 Hgb 8.6 L D Hct 25.5 L D Plt Count 288 Sodium 136 Potassium 4.1 Chloride 98 Carbon Dioxide 29 BUN 30 H Creatinine 0.7 Random Glucose 112 H Calcium 9.0 Phosphorus 3.8 D Magnesium 2.0 Total Bilirubin 0.8 D AST 17 ALT 13 Alkaline Phosphatase 43 L Chest Mild dry rales left base, decreased post cough No wheezing Cor RRR High-pitched systoic murmur 3/6 URSB and ULSB with transmission into both carotids Abd Distended soft Non-tender Ext No new edema No phlebitis Neuro No new focal deficit Assessment and Plan Aortic stenosis ECHO noted For TAVR when stable Anemia 7.3/21.5>>8.6/25.5 No clear evidence of alternate cause of anemia other than GI blood loss/ Fe deficiency. Retic count noted. Normal haptoglobin and LDH Notes describe possible angiodysplasia (which is associated with aortic stenosis) Will transfuse at least one more unit slowly today. COPD Former smoker, Pneumonitis Continue current Rx Complete 7 days Weakness/Fatigue Multifactorial ASHD Stable as per cardiology notes For cardiac catheterization Dyslipidemia Stable DM As per old charts GERD Stable Pulmonary Hypertension Monitor Hypothyroid Stable Osteoarthritis Chronic stable HTN Stable Hyperphosphatemia Recheck Transfuse 1 unit PRBC today again
[2016-07-25] MEDS: LOSARTAN POTASSIUM 50 MG TABLET (FP) PO SCH (10:09)
[2016-07-25] MEDS: CHOLECALCIFEROL (VITAMIN D3) 1,000 UNIT TABLET (FP) PO SCH (10:09)
[2016-07-25] MEDS: ENOXAPARIN NA (PORCINE) 40 MG/0.4 ML DISP.SYRIN SQ SCH (10:09)
[2016-07-25] MEDS: CEFTRIAXONE 50 ML IVPB SCH (10:09)
[2016-07-25] MEDS: LACTOBACILLUS ACIDOPHILUS 1 EACH TAB (FP) PO SCH (10:09)
[2016-07-25] MEDS: RANITIDINE HCL 150 MG TABLET (FP) PO SCH ×2 (10:09→23:59)
[2016-07-25] MEDS: ASPIRIN 81 MG CHEWABLE TABLETS PO SCH (10:09)
[2016-07-25] MEDS: CARVEDILOL 6.25 MG TABLET (FP) PO SCH ×2 (10:09→22:22)
[2016-07-25] MEDS: BUDESONIDE/FORMETEROL FUMARATE 80/4.5 mcg INHALER IH SCH (10:10)
[2016-07-25] MEDS: FUROSEMIDE 40 MG/4 ML INJECTABLE VIAL IVPB SCH (10:18)
[2016-07-25] MEDS: AZITHROMYCIN IVPB 250 MG in DEXTROSE 5%-WATER - 250 ML IVPB SCH (11:08)
--- NOTE | 2016-07-25 11:55 | PN ---
Progress Note (short form) - Note Progress Note: Chief Complaint: Events noted, notes reviewed, denies any chest pain, dyspnea persists but improved, plan for additional PRBC transfusion related to persistent anemia History of Present Illness: Seen and examined. Events noted, notes reviewed, denies any chest pain, dyspnea persists but improved, plan for additional PRBC transfusion related to persistent anemia Echocardiography performed 07/23/2016 revealed normal bi-ventricular size and function, severe [place] 0.65 cm2 MG 65 mmHg, trace-mild AR, RVSP 40-50 mmHg - Current Medication List Current Medications Acetaminophen (Tylenol -) 650 mg PO Q4H PRN PRN Reason: FEVER OR PAIN Albuterol/Ipratropium (Duoneb -) 1 amp NEB Q6H PRN PRN Reason: ASTHMA Aspirin (Asa -) 81 mg PO DAILY [facility] Last Admin: 07/25/16 10:09 Dose: 81 mg Atorvastatin Calcium (Lipitor -) 10 mg PO HS [facility] Last Admin: 07/24/16 22:27 Dose: 10 mg Budesonide/Formoterol Fumarate (Symbicort 80/4.5mcg -) 2 puff IH BID [facility] Last Admin: 07/25/16 10:10 Dose: 2 puff Carvedilol (Coreg -) 6.25 mg PO BID [facility] Last Admin: 07/25/16 10:09 Dose: 6.25 mg Cholecalciferol (Vitamin D3 -) 1,000 unit PO DAILY [facility] Last Admin: 07/25/16 10:09 Dose: 1,000 unit Furosemide (Lasix Injection -) 40 mg IVPB DAILY [facility] Last Admin: 07/25/16 10:18 Dose: Not Given Furosemide (Lasix Injection -) 40 mg IVPUSH ONCE ONE Stop: 07/25/16 16:01 Azithromycin 250 mg/ Dextrose 250 mls @ 250 mls/hr IVPB DAILY [facility] Last Admin: 07/25/16 11:08 Dose: 250 mls/hr Ceftriaxone Sodium (Rocephin 1gm Ivpb (Pre-Docked)) 50 mls @ 100 mls/hr IVPB DAILY [facility] Last Admin: 07/25/16 10:09 Dose: 100 mls/hr Insulin Aspart (Novolog Vial Sliding Scale -) 1 vial SQ ACHS [facility] PRN Reason: Protocol Last Admin: 07/25/16 06:42 Dose: Not Given Lactobacillus Acidophilus (Bacid -) 1 tab PO DAILY [facility] Last Admin: 07/25/16 10:09 Dose: 1 tab Levothyroxine Sodium (Synthroid -) 25 mcg PO ACBK [facility] Last Admin: 07/25/16 06:42 Dose: 25 mcg Losartan Potassium (Cozaar -) 50 mg PO DAILY [facility] Last Admin: 07/25/16 10:09 Dose: 50 mg Metformin HCl (Glucophage -) 500 mg PO TIDAC [facility] Last Admin: 07/25/16 06:00 Dose: 500 mg Ranitidine HCl (Zantac -) 150 mg PO BID [facility] Last Admin: 07/25/16 10:09 Dose: 150 mg Sertraline HCl (Zoloft -) 25 mg PO HS [facility] Last Admin: 07/24/16 22:27 Dose: 25 mg Sitagliptin Phosphate (Januvia -) 100 mg PO ACBK [facility] Last Admin: 07/25/16 06:40 Dose: 100 mg - Objective Vital Signs: Last Vital Signs Temp Pulse Resp BP Pulse Ox 98.3 F 69 18 113/55 93 L 07/25/16 06:20 07/25/16 06:20 07/25/16 06:20 07/25/16 06:20 07/24/16 14:15 Constitutional: No Distress, Calm Neck: Supple Negative JVD Cardiovascular: S1 S2 Regular Rate and Rhythm Grade 3-4/6 AIRAM Respiratory: Diminished at the Bases Bilaterally Gastrointestinal: Soft Benign Normal Bowel Sounds Ext: No Edema Labs: CBC, BMP 07/25/16 07:15 07/25/16 07:15 Assessment/Plan ASSESSMENT: 1. Acute on chronic diastolic failure with class II-III NYHA classification LV failure, resolving 2. Severe-critical aortic valve stenosis for TAVR 3. CAD angina pectoris 4. HTN 5. DM 6. Hypercholesterolemia 7. Hypothyroidism 8. COPD 9. 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 Continue Lasix with close monitoring of renal function 2. Continue Coreg 3. Continue Cozaar 4. Continue Lipitor 5. Continue ASA with caution 6. As outlined above plan for additional PRBC transfusion, repeat CBC this evening to assess response 7. Plan to proceed with TAVR evaluation once euvolemic, plan for R&LH cardiac catheterization coronary angiogrpahy this coming week eKzia Benz MD
[2016-07-25] MEDS ORDERED: FUROSEMIDE 40 MG/4 ML INJECTABLE VIAL IVPUSH ONE (16:00)
[2016-07-25 18:51] LABS: EOSINOPHIL 2.2 % (0-4.5); MCH 28.6 pg (25.7-33.7); MCHC 33.5 g/dl (32.0-36.0); MEAN CELL VOLUME 85.2 fl (80-96); NEUTROPHILS 53.3 % (42.8-82.8); PLATELET COUNT 304 K/MM3 (134-434); RDW 14.9 % (11.6-15.6); WHITE BLOOD COUNT 8.8 K/mm3 (4.0-10.0)
[2016-07-25 20:11] LABS: MCH 29.1 pg (25.7-33.7); MCHC 34.3 g/dl (32.0-36.0); MEAN PLT VOLUME 7.9 fl (7.5-11.1); PLATELET COUNT 325 K/MM3 (134-434); RDW 14.9 % (11.6-15.6); WHITE BLOOD COUNT 9.9 K/mm3 (4.0-10.0)
[2016-07-25] MEDS: ATORVASTATIN CA 10 MG TABLET (FP) PO SCH (22:22)
[2016-07-25] MEDS ORDERED: LATANOPROST 0.005% OPHTH SOLN 2.5ML BOTTLE OU SCH (23:30)
[2016-07-25] MEDS: SERTRALINE HCL 25 MG TABLET (FP) PO SCH (23:59)
[2016-07-26] MEDS: BUDESONIDE/FORMETEROL FUMARATE 80/4.5 mcg INHALER IH SCH ×2 (00:03→09:20)
[2016-07-26] MEDS ORDERED: PT OWN MED DRAWER 7, Y5N ONE ×3 (06:38→10:51)
[2016-07-26] MEDS: sitaGLIPtin PHOSPHATE 100 MG TABLET (FP) PO SCH (06:40)
[2016-07-26] MEDS: metFORMIN HCL 500 MG TABLET (FP) PO SCH ×2 (06:40→11:04)
[2016-07-26] MEDS: LEVOTHYROXINE NA 25 MCG TABLET (FP) PO SCH (06:40)
[2016-07-26] MEDS: INSULIN SLIDING SCALE (NOVOLOG) 1 VIAL SQ SCH ×2 (06:41→11:04)
[2016-07-26 08:03] LABS: EOSINOPHIL 2.9 % (0-4.5); MCH 29.5 pg (25.7-33.7); MCHC 34.4 g/dl (32.0-36.0); MEAN CELL VOLUME 85.8 fl (80-96); NEUTROPHILS 57.6 % (42.8-82.8); PLATELET COUNT 281 K/MM3 (134-434); RDW 15.1 % (11.6-15.6); WHITE BLOOD COUNT 7.8 K/mm3 (4.0-10.0)
[2016-07-26 08:30] LABS: ALBUMIN 3.1 g/dl (3.4-5.0); ALK PHOS 41 U/L (45-117); ANION GAP 8 (8-16); BILIRUBIN,TOTAL 0.6 mg/dL (0.2-1.0); CALCIUM 9.2 mg/dL (8.5-10.1); CO2 30 mmol/L (21-32); CREATININE 0.7 mg/dL (0.55-1.02); GLUCOSE,RANDOM 131 mg/dL (74-106); SGOT/AST 14 U/L (15-37); SGPT/ALT 13 U/L (12-78); TOT PROT 6.4 g/dl (6.4-8.2)
[2016-07-26] MEDS: CARVEDILOL 6.25 MG TABLET (FP) PO SCH (09:19)
[2016-07-26] MEDS: LACTOBACILLUS ACIDOPHILUS 1 EACH TAB (FP) PO SCH (09:19)
[2016-07-26] MEDS: ASPIRIN 81 MG CHEWABLE TABLETS PO SCH (09:19)
[2016-07-26] MEDS: RANITIDINE HCL 150 MG TABLET (FP) PO SCH (09:20)
[2016-07-26] MEDS: FUROSEMIDE 40 MG/4 ML INJECTABLE VIAL IVPB SCH (09:20)
[2016-07-26] MEDS: CHOLECALCIFEROL (VITAMIN D3) 1,000 UNIT TABLET (FP) PO SCH (09:20)
[2016-07-26] MEDS: LOSARTAN POTASSIUM 50 MG TABLET (FP) PO SCH (09:20)
[2016-07-26] MEDS: CEFTRIAXONE 50 ML IVPB SCH (09:21)
[2016-07-26 09:29] VITALS: BP 141/63; PULSE 92; TEMP 98
--- NOTE | 2016-07-26 09:50 | PN ---
Progress Note (short form) - Note Progress Note: OOB in NAD on RA. No CP or SOB. No cough or sputum production. Has been afebrile since admission. CXR: No acute process. Intake & Output 07/23/16 07/24/16 07/25/16 07/26/16 23:59 23:59 23:59 23:59 Intake Total 1900 1900 1450 100 Output Total 1100 Balance 800 1900 1450 100 Last Vital Signs Temp Pulse Resp BP Pulse Ox 98.0 F 92 H 20 141/63 96 07/26/16 09:28 07/26/16 09:28 07/26/16 09:28 07/26/16 09:28 07/25/16 09:00 Active Medications Acetaminophen (Tylenol -) 650 mg PO Q4H PRN PRN Reason: FEVER OR PAIN Albuterol/Ipratropium (Duoneb -) 1 amp NEB Q6H PRN PRN Reason: ASTHMA Aspirin (Asa -) 81 mg PO DAILY [facility] Last Admin: 07/26/16 09:19 Dose: 81 mg Atorvastatin Calcium (Lipitor -) 10 mg PO HS [facility] Last Admin: 07/25/16 22:22 Dose: 10 mg Budesonide/Formoterol Fumarate (Symbicort 80/4.5mcg -) 2 puff IH BID [facility] Last Admin: 07/26/16 09:20 Dose: 2 puff Carvedilol (Coreg -) 6.25 mg PO BID [facility] Last Admin: 07/26/16 09:19 Dose: 6.25 mg Cholecalciferol (Vitamin D3 -) 1,000 unit PO DAILY [facility] Last Admin: 07/26/16 09:20 Dose: 1,000 unit Furosemide (Lasix Injection -) 40 mg IVPB DAILY [facility] Last Admin: 07/26/16 09:20 Dose: 40 mg Azithromycin 250 mg/ Dextrose 250 mls @ 250 mls/hr IVPB DAILY [facility] Last Admin: 07/25/16 11:08 Dose: 250 mls/hr Ceftriaxone Sodium (Rocephin 1gm Ivpb (Pre-Docked)) 50 mls @ 100 mls/hr IVPB DAILY [facility] Last Admin: 07/26/16 09:21 Dose: 100 mls/hr Insulin Aspart (Novolog Vial Sliding Scale -) 1 vial SQ ACHS [facility] PRN Reason: Protocol Last Admin: 07/26/16 06:41 Dose: Not Given Lactobacillus Acidophilus (Bacid -) 1 tab PO DAILY [facility] Last Admin: 07/26/16 09:19 Dose: 1 tab Latanoprost (Xalatan 0.005% Eye Drops -) 1 drop OU [facility] Last Admin: 07/25/16 23:59 Dose: 1 drop Levothyroxine Sodium (Synthroid -) 25 mcg PO ACBK [facility] Last Admin: 07/26/16 06:40 Dose: 25 mcg Losartan Potassium (Cozaar -) 50 mg PO DAILY [facility] Last Admin: 07/26/16 09:20 Dose: 50 mg Metformin HCl (Glucophage -) 500 mg PO TIDAC [facility] Last Admin: 07/26/16 06:40 Dose: 500 mg Ranitidine HCl (Zantac -) 150 mg PO BID [facility] Last Admin: 07/26/16 09:20 Dose: 150 mg Sertraline HCl (Zoloft -) 25 mg PO [facility] Last Admin: 07/25/16 23:59 Dose: 25 mg [facility]agli[facility] -) [facility] Admin: 07/26/16 06:40 Dose: 100 mg General: NAD Constitutional: Yes: Well Nourished, No Distress, Calm Cardiovascular: Yes: Regular Rate and Rhythm, Murmur. No: Gallop, Rub Respiratory: Yes: CTA Bilaterally, On RA No: Rales, Rhonchi, Wheezes Gastrointestinal: Yes: Normal Bowel Sounds, Soft. No: Distention, Tenderness Extremities: Yes: WNL Edema: No Labs: Problem List - Problems (1) Pneumonia Code(s): J18.9 - PNEUMONIA, UNSPECIFIED ORGANISM Qualifiers: Pneumonia type: due to unspecified organism Laterality: bilateral Lung location: lower lobe of lung Qualified Code(s): J18.9 - Pneumonia, unspecified organism (2) Weakness Code(s): R53.1 - WEAKNESS (3) Aortic stenosis Code(s): I35.0 - NONRHEUMATIC AORTIC (VALVE) STENOSIS Qualifiers: Cardiac valve disease etiology: nonrheumatic Qualified Code(s): I35.0 - Nonrheumatic aortic (valve) stenosis (4) CAD (coronary artery disease) Code(s): I25.10 - ATHSCL HEART DISEASE OF [place] CORONARY ARTERY W/O ANG PCTRS Qualifiers: Coronary Disease-Associated Artery/Lesion type: [place] artery [place] vs. transplanted heart: [place] heart Associated angina: without angina Qualified Code(s): I25.10 - Atherosclerotic heart disease of [place] coronary artery without angina pectoris (5) COPD (chronic obstructive pulmonary disease) Code(s): J44.9 - CHRONIC OBSTRUCTIVE PULMONARY DISEASE, UNSPECIFIED Qualifiers : COPD type: unspecified COPD Qualified Code(s): J44.9 - Chronic obstructive pulmonary disease, unspecified (6) Diabetes Code(s): E11.9 - TYPE 2 DIABETES MELLITUS WITHOUT COMPLICATIONS Qualifiers: Diabetes mellitus type: type 2 (7) GERD (gastroesophageal reflux disease) Code(s): K21.9 - GASTRO-ESOPHAGEAL REFLUX DISEASE WITHOUT ESOPHAGITIS (8) HTN (hypertension) Code(s): I10 - ESSENTIAL (PRIMARY) HYPERTENSION Assessment/Plan (1) Pneumonia Assessment/Plan: Code(s): J18.9 - PNEUMONIA, UNSPECIFIED ORGANISM Qualifiers: Pneumonia type: due to unspecified organism Laterality: bilateral Lung location: lower lobe of lung Qualified Code(s): J18.9 - Pneumonia, unspecified organism (2) Weakness Assessment/Plan: Code(s): R53.1 - WEAKNESS (3) Aortic stenosis Assessment/Plan: Code(s): I35.0 - NONRHEUMATIC AORTIC (VALVE) STENOSIS (4) CAD (coronary artery disease) Assessment/Plan: Code(s): I25.10 - ATHSCL HEART DISEASE OF [place] CORONARY ARTERY W/O ANG PCTRS (5) COPD (chronic obstructive pulmonary disease) Assessment/Plan: Code(s): J44.9 - CHRONIC OBSTRUCTIVE PULMONARY DISEASE, UNSPECIFIED Qualifiers : COPD type: unspecified COPD Qualified Code(s): J44.9 - Chronic obstructive pulmonary disease, unspecified (6) Diabetes Assessment/Plan: Code(s): E11.9 - TYPE 2 DIABETES MELLITUS WITHOUT COMPLICATIONS (7) GERD (gastroesophageal reflux disease) Assessment/Plan: Code(s): K21.9 - GASTRO-ESOPHAGEAL REFLUX DISEASE WITHOUT ESOPHAGITIS (8) HTN (hypertension) Assessment/Plan: Code(s): I10 - ESSENTIAL (PRIMARY) HYPERTENSION (9) Anemia PLAN: Resolved probable URI. Do not suspect active infectious process. Will D/C ABX For transfer for advanced cardiac workup. Dr Ochoa
--- NOTE | 2016-07-26 10:48 | PN ---
Progress Note, Physician History of Present Illness: Dyspnea on exertion has resolved to baseline. - Current Medication List Current Medications: Active Medications Acetaminophen (Tylenol -) 650 mg PO Q4H PRN PRN Reason: FEVER OR PAIN Albuterol/Ipratropium (Duoneb -) 1 amp NEB Q6H PRN PRN Reason: ASTHMA Aspirin (Asa -) 81 mg PO DAILY [facility] Last Admin: 07/26/16 09:19 Dose: 81 mg Atorvastatin Calcium (Lipitor -) 10 mg PO HS [facility] Last Admin: 07/25/16 22:22 Dose: 10 mg Budesonide/Formoterol Fumarate (Symbicort 80/4.5mcg -) 2 puff IH BID [facility] Last Admin: 07/26/16 09:20 Dose: 2 puff Carvedilol (Coreg -) 6.25 mg PO BID [facility] Last Admin: 07/26/16 09:19 Dose: 6.25 mg Cholecalciferol (Vitamin D3 -) 1,000 unit PO DAILY [facility] Last Admin: 07/26/16 09:20 Dose: 1,000 unit Furosemide (Lasix Injection -) 40 mg IVPB DAILY [facility] Last Admin: 07/26/16 09:20 Dose: 40 mg Insulin Aspart (Novolog Vial Sliding Scale -) 1 vial SQ ACHS [facility] PRN Reason: Protocol Last Admin: 07/26/16 06:41 Dose: Not Given Lactobacillus Acidophilus (Bacid -) 1 tab PO DAILY [facility] Last Admin: 07/26/16 09:19 Dose: 1 tab Latanoprost (Xalatan 0.005% Eye Drops -) 1 drop OU HS [facility] Last Admin: 07/25/16 23:59 Dose: 1 drop Levothyroxine Sodium (Synthroid -) 25 mcg PO ACBK [facility] Last Admin: 07/26/16 06:40 Dose: 25 mcg Losartan Potassium (Cozaar -) 50 mg PO DAILY [facility] Last Admin: 07/26/16 09:20 Dose: 50 mg Metformin HCl (Glucophage -) 500 mg PO TIDAC [facility] Last Admin: 07/26/16 06:40 Dose: 500 mg Ranitidine HCl (Zantac -) 150 mg PO BID [facility] Last Admin: 07/26/16 09:20 Dose: 150 mg Sertraline HCl (Zoloft -) 25 mg PO HS [facility] Last Admin: 07/25/16 23:59 Dose: 25 mg Sitagliptin Phosphate (Januvia -) 100 mg PO ACBK [facility] Last Admin: 07/26/16 06:40 Dose: 100 mg - Objective Vital Signs: Vital Signs Temperature 98.0 F 07/26/16 09:28 Pulse Rate 92 H 07/26/16 09:28 Respiratory Rate 20 07/26/16 09:28 Blood Pressure 141/63 07/26/16 09:28 O2 Sat by Pulse Oximetry (%) 98 07/26/16 09:00 Constitutional: Yes: No Distress, Calm Neck: Yes: Supple Cardiovascular: Yes: Regular Rate and Rhythm, Murmur (2/6 SM) Respiratory: Yes: Regular, CTA Bilaterally Gastrointestinal: Yes: Normal Bowel Sounds, Soft Edema: No Labs: CBC, BMP 07/26/16 07:00 07/26/16 07:00 Problem List - Problems (1) Pulmonary hypertension Code(s): I27.2 - OTHER SECONDARY PULMONARY HYPERTENSION (2) Anemia Code(s): D64.9 - ANEMIA, UNSPECIFIED Qualifiers: Anemia type: iron deficiency Iron deficiency anemia type: chronic blood loss Qualified Code(s): D50.0 - Iron deficiency anemia secondary to blood loss (chronic) (3) Aortic stenosis Code(s): I35.0 - NONRHEUMATIC AORTIC (VALVE) STENOSIS Qualifiers: Cardiac valve disease etiology: nonrheumatic Qualified Code(s): I35.0 - Nonrheumatic aortic (valve) stenosis (4) CAD (coronary artery disease) Code(s): I25.10 - ATHSCL HEART DISEASE OF [place] CORONARY ARTERY W/O ANG PCTRS Qualifiers: Coronary Disease-Associated Artery/Lesion type: [place] artery [place] vs. transplanted heart: [place] heart Associated angina: without angina Qualified Code(s): I25.10 - Atherosclerotic heart disease of [place] coronary artery without angina pectoris (5) COPD (chronic obstructive pulmonary disease) Code(s): J44.9 - CHRONIC OBSTRUCTIVE PULMONARY DISEASE, UNSPECIFIED Qualifiers : COPD type: unspecified COPD Qualified Code(s): J44.9 - Chronic obstructive pulmonary disease, unspecified (6) Diabetes Code(s): E11.9 - TYPE 2 DIABETES MELLITUS WITHOUT COMPLICATIONS Qualifiers: Diabetes mellitus type: type 2 (7) GI bleed Code(s): K92.2 - GASTROINTESTINAL HEMORRHAGE, UNSPECIFIED Qualifiers: GI bleed type/associated pathology: angiodysplasia of stomach and duodenum Qualified Code(s): K31.811 - Angiodysplasia of stomach and duodenum with bleeding (8) Shortness of breath Code(s): R06.02 - SHORTNESS OF BREATH (9) Acute on chronic diastolic (congestive) heart failure Code(s): I50.33 - ACUTE ON CHRONIC DIASTOLIC (CONGESTIVE) HEART FAILURE Assessment/Plan 11/28/2014 Echo: cLVH, normal LV size and fxn, severe [place] 0.6 cm^2 MG 36 mmHg, mild MR and TR 07/16/2016 BNP: 581 07/23/2016 Echo: Normal biventricular size and fxn, severe [place] 0.65 cm^2 MG 65 mmHg, tr-mild AR, RVSP 40-50 mmHg 1. Improving MALONEY referable to acute on chronic diastolic failure with underlying 2. Severe aortic stenosis previously hesitant for TAVR 3. 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 CAD angina pectoris 5. HTN 6. DM 7. Hypercholesterolemia 8. Hypothyroidism 9. COPD PLAN: 1. Continue diuresis with monitor diuretic response, renal fxn and electrolytes 2. Continue Coreg 6.25 bid 3. Continue Cozaar 50 qd 4. Continue Lipitor 10 qd 5. Continue ASA 81 qd 7. Now willing for TAVR consideration, plan for R&LHc today at [facility]
--- NOTE | 2016-07-26 10:51 | DS ---
Physical Examination Vital Signs: Vital Signs Temperature 98.0 F 07/26/16 09:28 Pulse Rate 92 H 07/26/16 09:28 Respiratory Rate 20 07/26/16 09:28 Blood Pressure 141/63 07/26/16 09:28 O2 Sat by Pulse Oximetry (%) 98 07/26/16 09:00 Constitutional: Yes: Well Nourished, No Distress, Calm Cardiovascular: Yes: Regular Rate and Rhythm, Murmur. No: Gallop, Rub Respiratory: Yes: Regular, CTA Bilaterally. No: Rales, Rhonchi, Wheezes Gastrointestinal: Yes: Normal Bowel Sounds, Soft. No: Distention, Tenderness Extremities: Yes: WNL Edema: No Labs: CBC, BMP 07/26/16 07:00 07/26/16 07:00 Discharge Summary Reason For Visit: WEAKNESS/PNEUMONIA Current Active Problems Pneumonia (Acute) Pulmonary hypertension (Acute) Weakness (Acute) Hospital Course: (1) Pneumonia Code(s): J18.9 - PNEUMONIA, UNSPECIFIED ORGANISM Qualifiers: Pneumonia type: due to unspecified organism Laterality: bilateral Lung location: lower lobe of lung Qualified Code(s): J18.9 - Pneumonia, unspecified organism (2) Weakness Code(s): R53.1 - WEAKNESS (3) Aortic stenosis Code(s): I35.0 - NONRHEUMATIC AORTIC (VALVE) STENOSIS Qualifiers: Cardiac valve disease etiology: nonrheumatic Qualified Code(s): I35.0 - Nonrheumatic aortic (valve) stenosis (4) CAD (coronary artery disease) Code(s): I25.10 - ATHSCL HEART DISEASE OF [place] CORONARY ARTERY W/O ANG PCTRS Qualifiers: Coronary Disease-Associated Artery/Lesion type: [place] artery [place] vs. transplanted heart: [place] heart Associated angina: without angina Qualified Code(s): I25.10 - Atherosclerotic heart disease of [place] coronary artery without angina pectoris (5) COPD (chronic obstructive pulmonary disease) Code(s): J44.9 - CHRONIC OBSTRUCTIVE PULMONARY DISEASE, UNSPECIFIED Qualifiers : COPD type: unspecified COPD Qualified Code(s): J44.9 - Chronic obstructive pulmonary disease, unspecified (6) Diabetes Code(s): E11.9 - TYPE 2 DIABETES MELLITUS WITHOUT COMPLICATIONS Qualifiers: Diabetes mellitus type: type 2 (7) GERD (gastroesophageal reflux disease) Code(s): K21.9 - GASTRO-ESOPHAGEAL REFLUX DISEASE WITHOUT ESOPHAGITIS (8) HTN (hypertension) Code(s): I10 - ESSENTIAL (PRIMARY) HYPERTENSION Ms Valadez is a very pleasant 80 year old female who comes in with pneumonia and long standing symptomatic aortic stenosis. She was fully treated for pneumonia, however she was not improving as expected. Because of this her aortic stenosis became concerning as she was symptomatic from this. Both pulmonary and cardiology were consulted since she has a history of COPD, pulmonary evaluated and felt her dyspnea was cardiac driven. Cardiology evaluated and also agreed this was cardiac driven. Cardiology discussed further care and patient agreed to go for TAVR. She was found to have anemia and was transfused. Currently she is stable for transfer for TAVR 35 minutes spent in preparation of this discharge Condition: Stable - Instructions Diet, Activity, Other Instructions: Diet and activity per outside hospital. No activity restriction, on diabetic diet here. Referrals: Jorje Tom MD [Primary Care Provider] - Disposition: TRANSFER ACUTE CARE/OTHER HOSP - Home Medications Comprehensive Discharge Medication List: Ambulatory Orders Carvedilol [Coreg] 6.25 mg PO DAILY 12/18/14 Levothyroxine [Synthroid -] 25 mcg PO DAILY 12/18/14 Losartan Potassium [Cozaar] 50 mg PO DAILY 12/18/14 Metformin HCl [Glucophage -] 500 mg PO TID 12/18/14 Sertraline HCl [Zoloft -] 25 mg PO HS 12/18/14 Sitagliptin Phosphate [Januvia] 100 mg PO DAILY 12/18/14 Atorvastatin Ca [Lipitor] 10 mg PO HS #1 tablet 12/22/14 Ranitidine [Zantac -] 150 mg PO BID #1 tablet 12/22/14 Cholecalciferol (Vitamin D3) [Vitamin D3 -] 1,000 unit PO DAILY 03/10/16 [place]-3 Fatty Acids [Fish Oil] 300 mg PO BID 03/10/16 Calcium Carb/Vitamin D3/Vit K1 [Citracal Soft Chew] 1 each PO DAILY 04/04/16 Fluticasone/Salmeterol [Advair 250-50 Diskus] 1 each IH BID 04/04/16 Ipratropium/Albuterol Sulfate [Combivent Respimat Inhal [place]] 4 gm IH QID PRN # 1 aer.w.adap 04/08/16 Latanoprost 0.005% Eye Drops [Xalatan 0.005% Eye Drops -] 1 drop OU HS 07/25/16 Aspirin [ASA -] 81 mg PO DAILY tab.chew 07/26/16
[2016-07-27 00:06] LABS: A/G RATIO 1.2 (0.7-1.7); ALBUMIN 3.3 g/dL (2.9-4.4); ALPHA-1-GLOBULIN 0.2 g/dL (0.0-0.4); GAMMA GLOBULIN 1.1 g/dL (0.4-1.8); GLOBULIN, TOTAL 2.9 g/dL (2.2-3.9); M-SPIKE Not Observed g/dL (Not Observed); TOTAL PROTEIN 6.2 g/dL (6.0-8.5)
== END 2016-07-26 11:32 | disposition short-term general hospital (02) | DRG 190 ==
LOC: JER 13:14 → JERBED 18:49 → UNDOADMIN 18:49 → JERBED 20:03 → J8W 07-20 19:00
PROVIDERS: ADMIT Internal Medicine; ATTEND Internal Medicine
PROC: 30233N1 Transfusion of Nonautologous Red Blood Cells into Peripheral Vein, Percutaneous Approach (ICD-10-PCS; principal; 2016-07-24)
DX: J44.1 Chronic obstructive pulmonary disease with (acute) exacerbation (principal); I50.33 Acute on chronic diastolic (congestive) heart failure; J18.9 Pneumonia, unspecified organism; I35.0 Nonrheumatic aortic (valve) stenosis; E03.9 Hypothyroidism, unspecified; I10 Essential (primary) hypertension; Z87.891 Personal history of nicotine dependence; I25.10 Atherosclerotic heart disease of native coronary artery without angina pectoris; E11.9 Type 2 diabetes mellitus without complications; K21.9 Gastro-esophageal reflux disease without esophagitis; D64.9 Anemia, unspecified
CPT/HCPCS: 36415; 36430; 71010-TC; 71020-TC; 80048; 80053; 80061; 81003; 81015; 82550; 82607; 82728; 82747; 82784; 83010; 83036; 83540; 83550; 83615; 83721; 83735; 83880; 84100; 84155; 84165; 84439; 84443; 84484; 85014; 85025; 85027; 85044; 85610; 85651; 85730; 86140; 86334; 86850; 86880; 86900; 86901; 86922; 87040; 87086; 87186; 87254; 87804; 87899; 93005; 93010; 93306-TC; 94640; 94761; 96365; 97116-GP; 97161-GP; 99283-25; 99285-25; P9058

== ENCOUNTER 2017-03-15 11:14 | Emergency (ER) | payer OTHER ==
[2017-03-15 11:42] VITALS: TEMP 98.3; BMI 30.2
--- NOTE | 2017-03-15 11:49 | PDOC ---
Attending Attestation - HPI HPI: 03/15/17 12:45 81 y/o F with a PMHx of HTN, HLD, hypothyroid, GERD, asthma, anemia, aortic valve replacement presents to the ED with weakness, palpitations and cough for 7 days. She reports associated SOB. Patient believes her weakness is due to her anemia. Patient reports a GI bleed in 2015 from polyps. Denies chest pain. Denies leg swelling or pain. Denies fever, chills. Denies urinary symptoms. GI: Dr. Blanca Plane Tender: Dr. Benz - Physicial Exam PE: 03/15/17 12:46 GENERAL: Awake, alert, and fully oriented, in no acute distress. Mild pallor. HEAD: No signs of trauma EYES: PERRLA, EOMI, sclera anicteric, mild conjunctival pallor ENT: Auricles normal inspection, hearing grossly normal, nares patent, oropharynx clear without exudates. Moist mucosa NECK: Normal ROM, supple, no lymphadenopathy, JVD, or masses LUNGS: Breath sounds equal, clear to auscultation bilaterally. No wheezes, and no crackles HEART: Regular rate and rhythm, V/ systolic murmur ABDOMEN: Soft, nontender, normoactive bowel sounds. No guarding, no rebound. No masses EXTREMITIES: Trace pitting edema to the shins bilaterally. Normal range of motion. No clubbing or cyanosis. No cords, erythema, or tenderness NEUROLOGICAL: Cranial nerves II through XII grossly intact. Normal speech, normal gait SKIN: Warm, Dry, normal turgor, no rashes or lesions noted. - Medical Decision Making 03/15/17 12:46 Documentation prepared by Bridget Campbell, acting as medical authorization specialist for Africa Roth MD. <Bridget Campbell - Last Filed: 03/15/17 12:45> - Resident Resident Name: Chidi Leon - ED Attending Attestation I have performed the following: I have examined & evaluated the patient, The case was reviewed & discussed with the resident, I agree w/resident's findings & plan, Exceptions are as noted - Medical Decision Making Pt with prior cardiac history, recent valve replacement, presenting with SOB, weakness, palpitations. CXR and labs obtained, no acute findings. D/w cardiology , no additional intervention at this time. Will f/u outpatient. <Africa Roth - Last Filed: 03/18/17 09:36>
--- NOTE | 2017-03-15 12:07 | PDOC ---
History of Present Illness <Bridget Campbell - Last Filed: 03/15/17 15:16> - General History Source: Patient Exam Limitations: No Limitations - History of Present Illness Initial Comments: 03/15/17 12:03 Patient is an 81F with history of aortic valve replacement (07/13), anemia requiring transfusion, asthma/copd, NIDDM, HTN, and hypothyroidism here today complaining of palpitations, weakness, and cough for the past 7-10 days. She is also complaining of increasing nighttime awakenings and shortness of breath. She denies chest pain, abdominal pain, nausea, vomiting, fevers and chills. She states that she is worried that she is in failure. She denies leg pain and swelling. She states that she had a clot in her leg when she was a teenager. <Chidi Leon - Last Filed: 03/15/17 15:51> - General Chief Complaint: Weakness Stated Complaint: WEAKNESS Time Seen by Provider: 03/15/17 11:40 Past History <Bridget Campbell - Last Filed: 03/15/17 15:16> - Past Medical History Anemia: Yes Asthma: Yes Cancer: No Cardiac Disorders: Yes (ashd) CVA: No COPD: Yes (emphysema) CHF: No Dementia: No Diabetes: (NIDDM) GI Disorders: Yes (Diverticulosis,gerd, POLYPS) Disorders: No HTN: No Hypercholesterolemia: Yes (takes lipitor) Liver Disease: (FATTY LIVER) Psychiatric Problems: Yes (derpression) Seizures: No Thyroid Disease: Yes - Surgical History Abdominal Surgery: Yes (appendectomy,hernia repair) Appendectomy: Yes Cardiac Surgery: Yes (aortic vaulve replacement) Cholecystectomy: No Lung Surgery: No Neurologic Surgery: No Orthopedic Surgery: No - Suicide/Smoking/Psychosocial Hx Smoking Status: Yes (1972) Smoking History: Former smoker Have you smoked in the past 12 months: No Number of Cigarettes Smoked Daily: 0 If you are a former smoker, when did you quit?: 1972 Information on smoking cessation initiated: No 'Breaking Loose' booklet given: 11/23/15 Hx Alcohol Use: No Drug/Substance Use Hx: No Substance Use Type: None Hx Substance Use Treatment: No <Chidi Leon - Last Filed: 03/15/17 15:51> - Past Medical History Allergies/Adverse Reactions: Allergies Allergy/AdvReac Type Severity Reaction Status Date / Time quinine [Quinine] Allergy Mild Rash Verified 03/15/17 11:38 Sulfa (Sulfonamide Allergy Mild Rash Verified 03/15/17 11:38 Antibiotics) [Sulfa(Sulfonamide Antibiotics)] Home Medications: Ambulatory Orders Carvedilol [Coreg] 6.25 mg PO DAILY 12/18/14 Levothyroxine [Synthroid -] 25 mcg PO DAILY 12/18/14 Losartan Potassium [Cozaar] 50 mg PO DAILY 12/18/14 Metformin HCl [Glucophage -] 500 mg PO TID 12/18/14 Sertraline HCl [Zoloft -] 25 mg PO HS 12/18/14 Sitagliptin Phosphate [Januvia] 100 mg PO DAILY 12/18/14 Atorvastatin Ca [Lipitor] 10 mg PO HS #1 tablet 12/22/14 Ranitidine [Zantac -] 150 mg PO BID #1 tablet 12/22/14 Cholecalciferol (Vitamin D3) [Vitamin D3 -] 1,000 unit PO DAILY 03/10/16 [place]-3 Fatty Acids [Fish Oil] 300 mg PO BID 03/10/16 Calcium Carb/Vitamin D3/Vit K1 [Citracal Soft Chew] 1 each PO DAILY 04/04/16 Fluticasone/Salmeterol [Advair 250-50 Diskus] 1 each IH BID 04/04/16 Ipratropium/Albuterol Sulfate [Combivent Respimat Inhal [place]] 4 gm IH QID PRN # 1 aer.w.adap 04/08/16 Latanoprost 0.005% Eye Drops [Xalatan 0.005% Eye Drops -] 1 drop OU HS 07/25/16 Aspirin [ASA -] 81 mg PO DAILY tab.chew 07/26/16 Calcium 250Mg/Vit-D 125 Units [Oscal 250 mg+D -] 1 combo PO DAILY 03/15/17 Review of Systems - Review of Systems Comments:: 03/15/17 12:10 GENERAL/CONSTITUTIONAL: No fever or chills. Positive for weakness. HEAD, EYES, EARS, NOSE AND THROAT: No change in vision. No sore throat. CARDIOVASCULAR: No chest pain. Positive for shortness of breath RESPIRATORY: Positive for cough. Negative for wheezing, or hemoptysis. GASTROINTESTINAL: No nausea, vomiting, diarrhea or constipation. GENITOURINARY: No dysuria, frequency, or change in urination. SKIN: No rash NEUROLOGIC: Positive for headache. Negative for vertigo, loss of consciousness, or change in strength/sensation. ENDOCRINE: No increased thirst. No abnormal weight change HEMATOLOGIC/LYMPHATIC: Positive for history of anemia and blood clots ALLERGIC/IMMUNOLOGIC: No hives or skin allergy. <Chidi Leon - Last Filed: 03/15/17 15:51> *Physical Exam - Vital Signs Last Vital Signs Temp Pulse Resp BP Pulse Ox 98.3 F 76 20 122/72 97 03/15/17 11:38 03/15/17 11:38 03/15/17 11:38 03/15/17 11:38 03/15/17 11:42 <Bridget Campbell - Last Filed: 03/15/17 15:16> - Vital Signs Last Vital Signs Temp Pulse Resp BP Pulse Ox 98.3 F 76 20 122/72 97 03/15/17 11:38 03/15/17 11:38 03/15/17 11:38 03/15/17 11:38 03/15/17 11:38 - Physical Exam Comments: 03/15/17 12:13 GENERAL: Awake, alert, and fully oriented, in no acute distress. Pale. HEAD: No signs of trauma, normocephalic, atraumatic EYES: PERRLA, EOMI, sclera anicteric, conjunctiva pale ENT: Auricles normal inspection, hearing grossly normal, nares patent, oropharynx clear without exudates. Moist mucosa NECK: Normal ROM, supple, no lymphadenopathy, JVD, or masses LUNGS: No distress, speaks full sentences, clear to auscultation bilaterally HEART: Regular rate and rhythm, normal S1 and S2, 3/6 systolic blowing murmur, peripheral pulses normal and equal bilaterally. ABDOMEN: Soft, nontender, normoactive bowel sounds. No guarding, no rebound. No masses EXTREMITIES: Normal inspection, Normal range of motion, no edema. No clubbing or cyanosis. NEUROLOGICAL: Cranial nerves II through XII grossly intact. Normal speech, no focal sensorimotor deficits SKIN: Warm, Dry, normal turgor, no rashes or lesions noted. <Chidi Leon - Last Filed: 03/15/17 15:51> ED Treatment Course - LABORATORY CBC & Chemistry Diagram: 03/15/17 12:10 03/15/17 12:10 - ADDITIONAL ORDERS Additional order review: Laboratory Results 03/15/17 03/15/17 03/15/17 12:10 12:10 12:10 PT with INR INR Sodium Potassium Chloride Carbon Dioxide Anion Gap BUN Creatinine Creat Clearance w eGFR Random Glucose Calcium Magnesium Total Bilirubin AST ALT Alkaline Phosphatase Creatine Kinase Troponin I B-Natriuretic Peptide Total Protein Albumin TSH 2.23 D Urine Color Yellow Urine Appearance Slcloudy Urine pH 7.0 Urine Protein Negative Urine Glucose (UA) Negative Urine Ketones Negative Urine Blood Negative Urine Nitrite Negative Urine Bilirubin Negative Urine Urobilinogen Negative Blood Type A POSITIVE Antibody Screen Negative 03/15/17 03/15/17 12:10 12:10 PT with INR 11.70 INR 1.06 Sodium 139 Potassium 4.5 Chloride 100 Carbon Dioxide 30 Anion Gap 9 BUN 15 D Creatinine 0.7 Creat Clearance w eGFR > 60 Random Glucose 134 H Calcium 8.8 Magnesium 2.3 Total Bilirubin 0.6 AST 12 L ALT 15 Alkaline Phosphatase 51 D Creatine Kinase 46 Troponin I < 0.02 B-Natriuretic Peptide 443.22 Total Protein 7.0 Albumin 3.5 TSH Urine Color Urine Appearance Urine pH Urine Protein Urine Glucose (UA) Urine Ketones Urine Blood Urine Nitrite Urine Bilirubin Urine Urobilinogen Blood Type Antibody Screen 03/15/17 12:10 RBC 3.47 L MCV 90.0 MCHC 34.0 RDW 14.6 MPV 7.8 Neutrophils % 65.8 Lymphocytes % 22.3 Monocytes % 9.7 Eosinophils % 1.6 Basophils % 0.6 <Bridget Campbell - Last Filed: 03/15/17 15:16> - LABORATORY CBC & Chemistry Diagram: 03/15/17 12:10 03/15/17 12:10 - RADIOLOGY Radiology Studies Ordered: Category Date Time Status CHEST X-RAY PORTABLE* [RAD] Stat Radiology 03/15/17 12:00 Ordered <Chidi Leon - Last Filed: 03/15/17 15:51> Medical Decision Making - Medical Decision Making 03/15/17 14:[address] Cabral is covering. [phone]. 03/15/17 15:[address] Cabral overhead. 03/15/17 15:[address] Cabral. [phone]. <CampbellMeka ramirezBridgte Dorian - Last Filed: 03/15/17 15:16> - Medical Decision Making 03/15/17 12:15 Patient is an 81F with history of anemia, chf, hypothyroidism, aortic valve replacement, distant blood clot, NIDDM and asthma/copd here today complaining of palpitations, weakness, shortness of breath, and cough for the past week. Vital signs normal and stable. Patient appears anemic on physical exam, however differential is broad and also includes: CHF exacerbation, ACS, arrhythmia, hypothyroidism. Will evaluate with labs, cxr, and ecg. ECG shows normal sinus rhythm with left axis deviation and LVH voltage criteria. No st elevations, t wave inversion in aVL, QTc 439. 03/15/17 13:29 Laboratory Tests 03/15/17 03/15/17 12:10 12:10 WBC 7.4 Hgb 10.6 L D Hct 31.2 L D Plt Count 241 Troponin I < 0.02 B-Natriuretic Peptide 443.22 CBC shows anemia is small and at baseline. Trop and BNP neg. UA normal. 03/15/17 13:30 CXR shows a slight increase in pulmonary markings. No acute cardiopulmonary process. 03/15/17 13:49 Laboratory Tests 03/15/17 12:10 TSH 2.23 D TSH normal 03/15/17 15:[address] Cabral about patient. Plan is to discharge with follow up with Dr Cortez. Agree with plan. Patient comfortable with going home. Given return precautions. Expresses understanding. <Chidi Leon - Last Filed: 03/15/17 15:51> *DC/Admit/Observation/Transfer <Bridget Campbell - Last Filed: 03/15/17 15:16> - Discharge Dispostion Admit: No <Chidi Leon - Last Filed: 03/15/17 15:51> Diagnosis at time of Disposition: Weakness - Discharge Dispostion Disposition: HOME - Referrals Referrals: Jorje Tom MD [Primary Care Provider] - Kezia Benz MD [Staff Physician] - - Patient Instructions Additional Instructions: Sorry that you've been feeling ill Ms [place]. I'm hoping that you feel better. Please follow up with Dr Wade and your PCP about your weakness. If the weakness worsens, or if you develop chest pain, shortness of breath, or increased confusion please come back to the emergency department. We'll always be happy to see you. -Dr Leon
[2017-03-15 12:33] LABS: URINE APPEARANCE SLCLOUDY; URINE BILIRUBIN NEGATIVE (NEGATIVE); URINE BLOOD NEGATIVE (NEGATIVE); URINE COLOR YELLOW; URINE GLUCOSE (UA) NEGATIVE (NEGATIVE); URINE KETONE NEGATIVE (NEGATIVE); URINE LEUK ESTERASE NEGATIVE (NEGATIVE); URINE NITRITE NEGATIVE (NEGATIVE); URINE PROTEIN NEGATIVE (NEGATIVE); URINE UROBILINOGEN NEGATIVE mg/dL (0.2-1.0)
[2017-03-15 12:50] LABS: BASOPHIL 0.6 % (0-2.0); EOSINOPHIL 1.6 % (0-4.5); MCH 30.6 pg (25.7-33.7); MEAN PLT VOLUME 7.8 fl (7.5-11.1); NEUTROPHILS 65.8 % (42.8-82.8); PLATELET COUNT 241 K/MM3 (134-434); RDW 14.6 % (11.6-15.6); WHITE BLOOD COUNT 7.4 K/mm3 (4.0-10.0)
[2017-03-15 13:09] LABS: INR 1.06 (0.82-1.09); PROTHROMBIN TIME (PATIENT) 11.7 SEC (9.98-11.88)
[2017-03-15 13:10] LABS: ALBUMIN 3.5 g/dl (3.4-5.0); ANION GAP 9 (8-16); BILIRUBIN,TOTAL 0.6 mg/dL (0.2-1.0); CALCIUM 8.8 mg/dL (8.5-10.1); CO2 30 mmol/L (21-32); CREATININE 0.7 mg/dL (0.55-1.02); GLUCOSE,RANDOM 134 mg/dL (74-106); MAGNESIUM 2.3 mg/dL (1.8-2.4); SGOT/AST 12 U/L (15-37); SGPT/ALT 15 U/L (12-78)
[2017-03-15 13:13] LABS: ALK PHOS 51 U/L (45-117); CPK 46 IU/L (26-192); TROPONIN I < 0.02 ng/ml (0.00-0.05)
--- NOTE | 2017-03-15 15:34 | CON.CARD ---
Consult - Past Medical History Cardio/Vascular: Yes: Aortic Stenosis, HTN, Hyperlipdemia Pulmonary: Yes: COPD Musculoskeletal: Yes: Osteoarthritis Endocrine: Yes: Diabetes Mellitus, Hypothyroidism - Past Surgical History Past Surgical History: Yes: Appendectomy, Hernia Repair, Tonsillectomy - Alcohol/Substance Use Hx Alcohol Use: No History of Substance Use: reports: None - Smoking History Smoking history: Former smoker Have you smoked in the past 12 months: No Aproximately how many cigarettes per day: 0 If you are a former smoker, when did you quit?: 1972 - Social History ADL: Independent History of Recent Travel: No Home Medications - Allergies Allergies/Adverse Reactions: Allergies Allergy/AdvReac Type Severity Reaction Status Date / Time quinine [Quinine] Allergy Mild Rash Verified 03/15/17 11:38 Sulfa (Sulfonamide Allergy Mild Rash Verified 03/15/17 11:38 Antibiotics) [Sulfa(Sulfonamide Antibiotics)] - Home Medications Home Medications: Ambulatory Orders Carvedilol [Coreg] 6.25 mg PO DAILY 12/18/14 Levothyroxine [Synthroid -] 25 mcg PO DAILY 12/18/14 Losartan Potassium [Cozaar] 50 mg PO DAILY 12/18/14 Metformin HCl [Glucophage -] 500 mg PO TID 12/18/14 Sertraline HCl [Zoloft -] 25 mg PO HS 12/18/14 Sitagliptin Phosphate [Januvia] 100 mg PO DAILY 12/18/14 Atorvastatin Ca [Lipitor] 10 mg PO HS #1 tablet 12/22/14 Ranitidine [Zantac -] 150 mg PO BID #1 tablet 12/22/14 Cholecalciferol (Vitamin D3) [Vitamin D3 -] 1,000 unit PO DAILY 03/10/16 [place]-3 Fatty Acids [Fish Oil] 300 mg PO BID 03/10/16 Calcium Carb/Vitamin D3/Vit K1 [Citracal Soft Chew] 1 each PO DAILY 04/04/16 Fluticasone/Salmeterol [Advair 250-50 Diskus] 1 each IH BID 04/04/16 Ipratropium/Albuterol Sulfate [Combivent Respimat Inhal [place]] 4 gm IH QID PRN # 1 aer.w.adap 04/08/16 Latanoprost 0.005% Eye Drops [Xalatan 0.005% Eye Drops -] 1 drop OU HS 07/25/16 Aspirin [ASA -] 81 mg PO DAILY tab.chew 07/26/16 Calcium 250Mg/Vit-D 125 Units [Oscal 250 mg+D -] 1 combo PO DAILY 03/15/17 Family Disease History - Family Disease History Family Disease History: Heart Disease: Mother, Son, Other: Father (emphysema, PE ) Vital Signs: Vital Signs Temperature 98.3 F 03/15/17 11:38 Pulse Rate 76 03/15/17 11:38 Respiratory Rate 20 03/15/17 11:38 Blood Pressure 122/72 03/15/17 11:38 O2 Sat by Pulse Oximetry (%) 97 03/15/17 11:42 - Other Data Labs, Other Data: CBC, BMP 03/15/17 12:10 03/15/17 12:10 INR, PTT INR 1.06 (0.82-1.09) 03/15/17 12:10 Troponin, BNP 03/15/17 12:10 Troponin I < 0.02 B-Natriuretic Peptide 443.22 Troponin, BNP 03/15/17 12:10 Troponin I < 0.02 B-Natriuretic Peptide 443.22
[2017-03-15 16:18] VITALS: BP 132/65; PULSE 82
--- NOTE | 2017-03-15 20:24 | EKG ---
Test Reason : Blood Pressure : / mmHG Vent. 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
== END 2017-03-15 16:19 | disposition home or self-care (01) ==
LOC: JER 11:14
DX: R53.1 Weakness (principal); D64.9 Anemia, unspecified; I10 Essential (primary) hypertension; I35.0 Nonrheumatic aortic (valve) stenosis; Z95.2 Presence of prosthetic heart valve; J44.9 Chronic obstructive pulmonary disease, unspecified; E11.9 Type 2 diabetes mellitus without complications; Z79.84 Long term (current) use of oral hypoglycemic drugs; E03.9 Hypothyroidism, unspecified; F32.9 Major depressive disorder, single episode, unspecified
CPT/HCPCS: 36415; 71010-TC; 80053; 81003; 83735; 83880; 84443; 84484; 85025; 85610; 86850; 86900; 86901; 93005; 93010; 99284-25

== ENCOUNTER 2017-04-17 13:07 | Emergency (ER) | payer OTHER ==
[2017-04-17 13:22] VITALS: TEMP 97.8; BMI 30.2
--- NOTE | 2017-04-17 14:04 | PDOC ---
History of Present Illness - General History Source: Patient Exam Limitations: No Limitations - History of Present Illness Initial Comments: 04/17/17 14:54 81 y/o F with a PMHx of ASHD, emphysema, NIDDM, diverticulosis, GERD, HLD, thyroid disease, depression presents to the ED with palpitations for 2 weeks. She reports associated increasing SOB and lightheadedness. She states the lightheadedness is worse when she stands. She reports minimal chest pain a few days ago, but she took a Nitroglycerin and went to sleep. Since then, the chest pain has resolved. She also reports a decreased appetite, stating she only eats when she has to take her medications. She denies headache, fever, chills. Denies nausea, vomiting, diarrhea. <Bridget Campbell - Last Filed: 04/17/17 15:59> <Africa Roth - Last Filed: 04/20/17 16:18> - General Stated Complaint: PALPITATIONS Time Seen by Provider: 04/17/17 13:28 Past History <Bridget Campbell - Last Filed: 04/17/17 15:59> - Past Medical History Anemia: Yes Asthma: Yes Cancer: No Cardiac Disorders: Yes (ashd) CVA: No COPD: Yes (emphysema) CHF: No Dementia: No Diabetes: (NIDDM) GI Disorders: Yes (Diverticulosis,gerd, POLYPS) Disorders: No HTN: No Hypercholesterolemia: Yes (takes lipitor) Liver Disease: (FATTY LIVER) Psychiatric Problems: Yes (derpression) Seizures: No Thyroid Disease: Yes - Surgical History Abdominal Surgery: Yes (appendectomy,hernia repair) Appendectomy: Yes Cardiac Surgery: Yes (aortic vaulve replacement) Cholecystectomy: No Lung Surgery: No Neurologic Surgery: No Orthopedic Surgery: No - Suicide/Smoking/Psychosocial Hx Smoking Status: Yes (1972) Smoking History: Never smoked Have you smoked in the past 12 months: No Number of Cigarettes Smoked Daily: 0 If you are a former smoker, when did you quit?: 1972 Information on smoking cessation initiated: No 'Breaking Loose' booklet given: 11/23/15 Hx Alcohol Use: No Drug/Substance Use Hx: No Substance Use Type: None Hx Substance Use Treatment: No <Africa Roth - Last Filed: 10/25/17 16:18> - Past Medical History Allergies/Adverse Reactions: Allergies Allergy/AdvReac Type Severity Reaction Status Date / Time quinine [Quinine] Allergy Mild Rash Verified 03/15/17 11:38 Sulfa (Sulfonamide Allergy Mild Rash Verified 03/15/17 11:38 Antibiotics) [Sulfa(Sulfonamide Antibiotics)] Home Medications: Ambulatory Orders Carvedilol [Coreg] 6.25 mg PO DAILY 12/18/14 Levothyroxine [Synthroid -] 25 mcg PO DAILY 12/18/14 Losartan Potassium [Cozaar] 50 mg PO DAILY 12/18/14 Metformin HCl [Glucophage -] 500 mg PO TID 12/18/14 Sertraline HCl [Zoloft -] 25 mg PO HS 12/18/14 Sitagliptin Phosphate [Januvia] 100 mg PO DAILY 12/18/14 Atorvastatin Ca [Lipitor] 10 mg PO HS #1 tablet 12/22/14 Ranitidine [Zantac -] 150 mg PO BID #1 tablet 12/22/14 Cholecalciferol (Vitamin D3) [Vitamin D3 -] 1,000 unit PO DAILY 03/10/16 [place]-3 Fatty Acids [Fish Oil] 300 mg PO BID 03/10/16 Calcium Carb/Vitamin D3/Vit K1 [Citracal Soft Chew] 1 each PO DAILY 04/04/16 Fluticasone/Salmeterol [Advair 250-50 Diskus] 1 each IH BID 04/04/16 Ipratropium/Albuterol Sulfate [Combivent Respimat Inhal [place]] 4 gm IH QID PRN # 1 aer.w.adap 04/08/16 Latanoprost 0.005% Eye Drops [Xalatan 0.005% Eye Drops -] 1 drop OU HS 07/25/16 Aspirin [ASA -] 81 mg PO DAILY tab.chew 07/26/16 Calcium 250Mg/Vit-D 125 Units [Oscal 250 mg+D -] 1 combo PO DAILY 03/15/17 Review of Systems - Review of Systems Able to Perform ROS?: Yes Comments:: 04/17/17 14:55 GENERAL/CONSTITUTIONAL: (+) decreased appetite. No fever or chills. No weakness. HEAD, EYES, EARS, NOSE AND THROAT: No change in vision. No ear pain or discharge. No sore throat. CARDIOVASCULAR: (+) chest pain, shortness of breath, palpitations, lightheadedness. RESPIRATORY: No cough, wheezing, or hemoptysis. GASTROINTESTINAL: No nausea, vomiting, diarrhea or constipation. GENITOURINARY: No dysuria, frequency, or change in urination. MUSCULOSKELETAL: No joint or muscle swelling or pain. No neck or back pain. SKIN: No rash NEUROLOGIC: No headache, vertigo, loss of consciousness, or change in strength/ sensation. ENDOCRINE: No increased thirst. No abnormal weight change. HEMATOLOGIC/LYMPHATIC: No anemia, easy bleeding, or history of blood clots. ALLERGIC/IMMUNOLOGIC: No hives or skin allergy. <ShannanBridget A - Last Filed: 04/17/17 15:59> *Physical Exam - Vital Signs Last Vital Signs Temp Pulse Resp BP Pulse Ox 97.8 F 68 18 129/66 95 04/17/17 13:10 04/17/17 13:10 04/17/17 13:10 04/17/17 13:10 04/17/17 13:10 - Physical Exam Comments: 04/17/17 14:59 GENERAL: Awake, alert, and fully oriented, in no acute distress. Mild pallor HEAD: No signs of trauma EYES: PERRLA, EOMI, sclera anicteric, conjunctiva clear ENT: Auricles normal inspection, hearing grossly normal, nares patent, oropharynx clear without exudates. Dry mucosa NECK: Normal ROM, supple, no lymphadenopathy, JVD, or masses LUNGS: Breath sounds equal, clear to auscultation bilaterally. No wheezes, and no crackles HEART: Regular rate and rhythm, normal S1 and S2, no rubs or gallops. Blowing systolic murmur heard over left second intercostal space. ABDOMEN: Soft, nontender, normoactive bowel sounds. No guarding, no rebound. No masses EXTREMITIES: Normal range of motion. No clubbing or cyanosis. No cords, erythema , or tenderness. Trace pitting edema NEUROLOGICAL: Cranial nerves II through XII grossly intact. Normal speech, normal gait SKIN: Warm, Dry, normal turgor, no rashes or lesions noted. <ShannanBridget A - Last Filed: 04/17/17 15:59> - Vital Signs Last Vital Signs Temp Pulse Resp BP Pulse Ox 97.8 F 68 18 129/66 95 04/17/17 13:10 04/17/17 13:10 04/17/17 13:10 04/17/17 13:10 04/17/17 13:10 <Africa Roth - Last Filed: 04/20/17 16:18> ED Treatment Course - LABORATORY CBC & Chemistry Diagram: 04/17/17 14:55 04/17/17 14:55 - RADIOLOGY Radiograph Interpretation: 04/17/17 15:54 Chest X-Ray reported by Dr. Abram Khoury Impression: No acute change since 03/15/2017 study <Bridget Campbell - Last Filed: 04/17/17 15:59> - LABORATORY CBC & Chemistry Diagram: 04/17/17 14:55 04/17/17 14:55 <Africa Roth - Last Filed: 04/20/17 16:18> Medical Decision Making - Medical Decision Making 04/17/17 16:[address] Benz [phone] <Bridget Campbell - Last Filed: 04/17/17 15:59> - Medical Decision Making Case d/w Dr. Benz via phone. CHF unlikely given lack of physical signs, as well as valve repair. Her SOB improved with nebs. Will DC home, she will f/u in his office in 1-2 days. <Africa Roth - Last Filed: 04/20/17 16:18> *DC/Admit/Observation/Transfer - Attestations Scribe Attestion: 04/17/17 14:55 Documentation prepared by Bridget Campbell, acting as diploma medical assistant for Africa Roth MD. <Bridget Campbell - Last Filed: 04/17/17 15:59> - Discharge Dispostion Admit: No <Africa Roth - Last Filed: 04/20/17 16:18> Diagnosis at time of Disposition: Shortness of breath - Discharge Dispostion Disposition: HOME Condition at time of disposition: Stable - Referrals Referrals: Jorje Tom MD [Primary Care Provider] - - Patient Instructions Printed Discharge Instructions: DI for Shortness of Breath
[2017-04-17 15:03] LABS: BASOPHIL 1.3 % (0-2.0); MCH 30.8 pg (25.7-33.7); MCHC 34.5 g/dl (32.0-36.0); MEAN CELL VOLUME 89.2 fl (80-96); MEAN PLT VOLUME 7.7 fl (7.5-11.1); NEUTROPHILS 68.5 % (42.8-82.8); PLATELET COUNT 255 K/MM3 (134-434); RDW 14.6 % (11.6-15.6); WHITE BLOOD COUNT 9.2 K/mm3 (4.0-10.0)
[2017-04-17 15:33] LABS: ALBUMIN 3.4 g/dl (3.4-5.0); ANION GAP 7 (8-16); BILIRUBIN,TOTAL 0.6 mg/dL (0.2-1.0); CALCIUM 8.9 mg/dL (8.5-10.1); CO2 30 mmol/L (21-32); CREATININE 0.6 mg/dL (0.55-1.02); GLUCOSE,RANDOM 105 mg/dL (74-106); SGOT/AST 13 U/L (15-37); SGPT/ALT 14 U/L (12-78); TOT PROT 6.9 g/dl (6.4-8.2)
[2017-04-17 15:42] LABS: ALK PHOS 56 U/L (45-117); CPK 52 IU/L (26-192); THYROID STIMULATING HORMONE 2.43 uIU/ml (0.358-3.74); TROPONIN I < 0.02 ng/ml (0.00-0.05)
[2017-04-17] MEDS ORDERED: ALBUTEROL SO4 2.5/IPRATROPIUM 0.5 INH SOL 3 ML VIAL.NEB. NEB ONE ×2 (16:28→16:48)
[2017-04-17] MEDS: ALBUTEROL SO4 2.5/IPRATROPIUM 0.5 INH SOL 3 ML VIAL.NEB. NEB SCH ×2 (17:47→18:01)
[2017-04-17 18:21] VITALS: BP 131/67; PULSE 74
--- NOTE | 2017-04-18 10:09 | EKG ---
Test Reason : Blood Pressure : / mmHG Vent. Rate : 065 BPM Atrial Rate : 065 BPM P-R Int : 180 ms QRS Dur : 104 ms QT Int : 410 ms P-R-T Axes : 063 -41 065 degrees QTc Int : 426 ms NORMAL SINUS RHYTHM LEFT AXIS DEVIATION VOLTAGE CRITERIA FOR LEFT VENTRICULAR HYPERTROPHY CANNOT RULE OUT SEPTAL INFARCT (CITED ON OR BEFORE 19-MAR-2016) ABNORMAL ECG WHEN COMPARED WITH ECG OF 15-MAR-2017 12:10, PREMATURE ATRIAL COMPLEXES ARE NO LONGER PRESENT Confirmed by GIO GUZMÁN MD ([id number]) on 04/18/2017 10:09:26 AM Referred By: Confirmed By:GIO GUZMÁN MD
== END 2017-04-17 18:22 | disposition home or self-care (01) ==
LOC: JER 13:07
PROC: 3E0F7GC Introduction of Other Therapeutic Substance into Respiratory Tract, Via Natural or Artificial Opening (ICD-10-PCS; principal; 2017-04-17)
PROC: 3E0F7GC Introduction of Other Therapeutic Substance into Respiratory Tract, Via Natural or Artificial Opening (ICD-10-PCS; 2017-04-17)
DX: R06.09 Other forms of dyspnea (principal); I25.10 Atherosclerotic heart disease of native coronary artery without angina pectoris; E11.9 Type 2 diabetes mellitus without complications; Z79.84 Long term (current) use of oral hypoglycemic drugs; J45.909 Unspecified asthma, uncomplicated; J43.9 Emphysema, unspecified; F32.9 Major depressive disorder, single episode, unspecified; K21.9 Gastro-esophageal reflux disease without esophagitis; Z95.4 Presence of other heart-valve replacement; Z87.19 Personal history of other diseases of the digestive system
CPT/HCPCS: 36415; 71010-TC; 80053; 82550; 83880; 84443; 84484; 85025; 93005; 93010; 94640; 99284-25

== ENCOUNTER 2017-05-10 11:06 | Observation (INO) | payer OTHER ==
--- NOTE | 2017-05-10 11:20 | PDOC ---
Attending Attestation - HPI HPI: 05/10/17 11:51 The patient is a 81 year old female, with a significant past medical history of CAD s/p AVR (bovine), Aortic stenosis who presents to the emergency department with worsening dyspnea on exertion today. Patient reports chronic generalized weakness and dyspnea on exertion for the past month. Today, patient reports her symptoms have worsened and presents to the ED for further evaluation. Patient has a doctors appointment tomorrow however is unable to climb down her stairs. Patient denies chest pain, headache or dizziness. She denies fever, chills, abdominal pain, nausea, vomit, diarrhea or constipation. She denies dysuria, frequency, urgency or hematuria. Patient denies sick contacts or recent travel. Allergies: quinine, sulfonamide antibiotics Past surgical history: None Social history: None PCP: Dr. Tom - Physicial Exam PE: 05/10/17 11:51 Vitals: Triage Vital signs reviewed General Appearance: no acute distress, well nourished well developed, Head: Atraumatic, normocephalic Throat: Posterior oropharynx without erythema, mucous membranes moist, Neck: Supple;No Nuchal rigidity Chest Wall: Nontender Cardiac: Regular rate and rhythm, no rubs, no gallops, ejection murmur Lungs: Good air movement bilaterally. +Bilateral fine crackles. Abdomen: Soft, nondistended, normal bowel sounds, nontender to palpation Extremities: Full range of motion to all extremities, no cyanosis, clubbing, or edema - Medical Decision Making 05/10/17 11:52 Documentation prepared by Yadi Ma, acting as medical stenographer for Stuart Lopez MD <Yadi Ma - Last Filed: 05/10/17 12:58> - Resident Resident Name: Cortes Johnson - ED Attending Attestation I have performed the following: I have examined & evaluated the patient, The case was reviewed & discussed with the resident, I agree w/resident's findings & plan, Exceptions are as noted - Medical Decision Making Worsening dyspnea on exertion. Patient states she can only a few steps. History of mitral valve disease. EKG nonischemic troponin negative BNP normal. No obvious etiology at this time for patient's dyspnea. We'll observe overnight for echo cardiology consultation and further management. 05/10/17 18:29 <Stuart Lopez - Last Filed: 05/10/17 18:30> Heart Score/ECG Review #1 05/10/17 12:58 ECG Reviewed by me Avina. rate 73 bpm NSR L anterior fascicular block L ventricular hypertrophy with repolarization abnormality <Yadi Ma - Last Filed: 05/10/17 12:58>
--- NOTE | 2017-05-10 11:53 | PDOC ---
History of Present Illness - General Chief Complaint: Weakness Stated Complaint: Weakness Time Seen by Provider: 05/10/17 11:17 - History of Present Illness Initial Comments: 05/10/17 11:59 81 y/o F with a PMHx of ASHD with bovine valve replacement, emphysema, NIDDM, diverticulosis, GERD, HLD, thyroid disease, depression presents to the ED for exacerbation of chronic generalized weakness, palpitations and shortness of breath on exertion for the past month. Palpitations can also occur at random. Patient was supposed to meet Dr. Wade tomorrow for Holter Monitor placement but called to office to tell them she would probably be too weak to get up and down stair, was advised to go to ER. Is also scheduled to get a transesophageal echocardiogram next Tuesday for evaluation of mitral valve. 05/10/17 12:05 Denies chest pain, syncope 05/10/17 12:06 Past History - Past Medical History Allergies/Adverse Reactions: Allergies Allergy/AdvReac Type Severity Reaction Status Date / Time quinine [Quinine] Allergy Mild Rash Verified 03/15/17 11:38 Sulfa (Sulfonamide Allergy Mild Rash Verified 03/15/17 11:38 Antibiotics) [Sulfa(Sulfonamide Antibiotics)] Home Medications: Ambulatory Orders Carvedilol [Coreg] 6.25 mg PO DAILY 12/18/14 Levothyroxine [Synthroid -] 25 mcg PO DAILY 12/18/14 Losartan Potassium [Cozaar] 50 mg PO DAILY 12/18/14 Metformin HCl [Glucophage -] 500 mg PO TID 12/18/14 Sertraline HCl [Zoloft -] 25 mg PO HS 12/18/14 Sitagliptin Phosphate [Januvia] 100 mg PO DAILY 12/18/14 Atorvastatin Ca [Lipitor] 10 mg PO HS #1 tablet 12/22/14 Ranitidine [Zantac -] 150 mg PO BID #1 tablet 12/22/14 Cholecalciferol (Vitamin D3) [Vitamin D3 -] 1,000 unit PO DAILY 03/10/16 [place]-3 Fatty Acids [Fish Oil] 300 mg PO BID 03/10/16 Calcium Carb/Vitamin D3/Vit K1 [Citracal Soft Chew] 1 each PO DAILY 04/04/16 Fluticasone/Salmeterol [Advair 250-50 Diskus] 1 each IH BID 04/04/16 Ipratropium/Albuterol Sulfate [Combivent Respimat Inhal [place]] 4 gm IH QID PRN # 1 aer.w.adap 04/08/16 Latanoprost 0.005% Eye Drops [Xalatan 0.005% Eye Drops -] 1 drop OU HS 07/25/16 Aspirin [ASA -] 81 mg PO DAILY tab.chew 07/26/16 Calcium 250Mg/Vit-D 125 Units [Oscal 250 mg+D -] 1 combo PO DAILY 03/15/17 Anemia: Yes Asthma: Yes Cancer: No Cardiac Disorders: Yes (ashd) CVA: No COPD: Yes (emphysema) CHF: No Dementia: No Diabetes: (NIDDM) GI Disorders: Yes (Diverticulosis,gerd, POLYPS) Disorders: No HTN: No Hypercholesterolemia: Yes (takes lipitor) Liver Disease: (FATTY LIVER) Psychiatric Problems: Yes (derpression) Seizures: No Thyroid Disease: Yes - Surgical History Abdominal Surgery: Yes (appendectomy,hernia repair) Appendectomy: Yes Cardiac Surgery: Yes (aortic vaulve replacement) Cholecystectomy: No Lung Surgery: No Neurologic Surgery: No Orthopedic Surgery: No - Suicide/Smoking/Psychosocial Hx Smoking Status: Yes (1972) Smoking History: Never smoked Have you smoked in the past 12 months: No Number of Cigarettes Smoked Daily: 0 If you are a former smoker, when did you quit?: 1972 'Breaking Loose' booklet given: 11/23/15 Hx Alcohol Use: No Drug/Substance Use Hx: No Substance Use Type: None Hx Substance Use Treatment: No Review of Systems - Review of Systems Able to Perform ROS?: Yes Constitutional: Yes: Weakness. No: Chills, Diaphoresis, Fever HEENTM: No: Symptoms Reported Respiratory: Yes: SOB with Exertion. No: Productive cough Cardiac (ROS): Yes: Palpitations. No: Chest Pain, Irregular Heart Rate ABD/GI: No: Symptoms Reported : No: Symptoms Reported Musculoskeletal: No: Symptoms Reported Integumentary: No: Symptoms Reported *Physical Exam - Vital Signs Last Vital Signs Temp Pulse Resp BP Pulse Ox 98.2 F 72 16 122/67 97 05/10/17 11:30 05/10/17 11:30 05/10/17 11:30 05/10/17 11:30 05/10/17 11:30 - Physical Exam General Appearance: Yes: Nourished, Appropriately Dressed. No: Apparent Distress HEENT: positive: EOMI, BLANK, Normal ENT Inspection Neck: positive: Trachea midline. negative: Tender Respiratory/Chest: positive: Lungs Clear, Normal Breath Sounds. negative: Chest Tender Cardiovascular: positive: Regular Rhythm, Regular Rate, S1, S2 Gastrointestinal/Abdominal: positive: Normal Bowel Sounds, Flat. negative: Tender ED Treatment Course - LABORATORY CBC & Chemistry Diagram: 05/10/17 12:29 05/10/17 12:29 Medical Decision Making - Medical Decision Making 05/10/17 17:19 81 y/o F with a PMHx of ASHD with bovine valve replacement, emphysema, NIDDM, diverticulosis, GERD, HLD, thyroid disease, depression presents to the ED for exacerbation of chronic generalized weakness, palpitations and shortness of breath on exertion for the past month. 05/10/17 17:20 Negative cxr, no acute pathology, large heart. Negative troponins, negative bnp. Patient admitted to Dr. Crawford for tele/observation. *DC/Admit/Observation/Transfer Diagnosis at time of Disposition: Generalized weakness - Discharge Dispostion Admit: Yes - Referrals Referrals: Jorje Tom MD [Primary Care Provider] - - Patient Instructions - Post Discharge Activity
[2017-05-10 12:49] LABS: BASOPHIL 0.9 % (0-2.0); EOSINOPHIL 1.5 % (0-4.5); MCH 29.9 pg (25.7-33.7); MCHC 33.3 g/dl (32.0-36.0); MEAN CELL VOLUME 89.7 fl (80-96); MEAN PLT VOLUME 8.2 fl (7.5-11.1); NEUTROPHILS 65.8 % (42.8-82.8); PLATELET COUNT 259 K/MM3 (134-434); RDW 14.7 % (11.6-15.6); WHITE BLOOD COUNT 7.4 K/mm3 (4.0-10.0)
[2017-05-10 13:29] LABS: ALBUMIN 3.5 g/dl (3.4-5.0); ANION GAP 10 (8-16); BILIRUBIN,TOTAL 0.5 mg/dL (0.2-1.0); CALCIUM 9.3 mg/dL (8.5-10.1); CO2 27 mmol/L (21-32); CREATININE 0.8 mg/dL (0.55-1.02); GLUCOSE,RANDOM 115 mg/dL (74-106); SGPT/ALT 17 U/L (12-78); TOT PROT 7.2 g/dl (6.4-8.2)
[2017-05-10 13:31] LABS: ALK PHOS 48 U/L (45-117); TROPONIN I < 0.02 ng/ml (0.00-0.05)
[2017-05-10 13:38] LABS: SGOT/AST 17 U/L (15-37)
--- NOTE | 2017-05-10 15:33 | EKG ---
Test Reason : Blood Pressure : / mmHG Vent. Rate : 073 BPM Atrial Rate : 073 BPM P-R Int : 196 ms QRS Dur : 108 ms QT Int : 396 ms P-R-T Axes : 073 -48 067 degrees QTc Int : 436 ms NORMAL SINUS RHYTHM BASELINE ARTIFACT LEFT ANTERIOR FASCICULAR BLOCK QS IN V2 CANNOT EXCLUDE ASWMI OF INDETERMINATE AGE LEFT VENTRICULAR HYPERTROPHY WITH REPOLARIZATION ABNORMALITY ABNORMAL ECG WHEN COMPARED WITH ECG OF 17-APR-2017 13:24, NO SIGNIFICANT CHANGE WAS FOUND REPEAT EKG IF CLINICALLY INDICATED Confirmed by JUS BANUELOS MD ([id number]) on 05/10/2017 3:32:38 PM Referred By: Confirmed By:JUS BANUELOS MD
[2017-05-10] MEDS ORDERED: PATIENT'S OWN MEDICATION (NON-FORMULARY) (Ipratropium/Albuterol Sulfate [Combivent Respima IH PRN (16:13)
[2017-05-10] MEDS ORDERED: ACETAMINOPHEN 325 MG TABLET (FP) PO PRN (16:16)
--- NOTE | 2017-05-10 16:21 | HP ---
Admitting History and Physical - Primary Care Physician PCP: Jorje Tom - Admission Chief Complaint: I'm weak History of Present Illness: Ms Valadez is a very pleasant 81 year old female who comes in with weakness for 2 months. She says it began in February. She says that when she stands up and moves her head she feels dizzy. She says it is more of a room spinning as opposed to a lightheadedness. She says it happens almost every time she stands, but she really notes it when she turns her head. She notes she has palpitations with the dizziness as well and that the weakness is more of a loss of balance and she feels like she is going to fall. However she has not fallen with this nor has she passed out. Friend at bedside says patient sometimes looks pale with this. Patient also says she feels very fatigue all the time. She denies fevers, chills, chest pain, worsening shortness of breath, nausea, vomiting, diarrhea, constipation, difficulty or pain on urination, erythema, or leg swelling. 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 She called and was recommended to come in for further evaluation. History Source: Patient Limitations to Obtaining History: No Limitations - Past Medical History Cardiovascular: Yes: Aortic Stenosis, HTN, Hyperlipdemia Pulmonary: Yes: COPD Musculoskeletal: Yes: Osteoarthritis Endocrine: Yes: Diabetes Mellitus, Hypothyroidism - Past Surgical History Past Surgical History: Yes: Appendectomy, Hernia Repair, Tonsillectomy, Valve Replacement - Smoking History Smoking history: Never smoked Have you smoked in the past 12 months: No Aproximately how many cigarettes per day: 0 If you are a former smoker, when did you quit?: 1972 - Alcohol/Substance Use Hx Alcohol Use: No History of Substance Use: reports: None - Social History Usual Living Arrangement: Yes: Alone ADL: Independent History of Recent Travel: No Home Medications - Allergies Allergies/Adverse Reactions: Allergies Allergy/AdvReac Type Severity Reaction Status Date / Time quinine [Quinine] Allergy Mild Rash Verified 03/15/17 11:38 Sulfa (Sulfonamide Allergy Mild Rash Verified 03/15/17 11:38 Antibiotics) [Sulfa(Sulfonamide Antibiotics)] - Home Medications Home Medications: Ambulatory Orders Carvedilol [Coreg] 6.25 mg PO DAILY 12/18/14 Levothyroxine [Synthroid -] 25 mcg PO DAILY 12/18/14 Losartan Potassium [Cozaar] 50 mg PO DAILY 12/18/14 Metformin HCl [Glucophage -] 500 mg PO TID 12/18/14 Sertraline HCl [Zoloft -] 25 mg PO HS 12/18/14 Sitagliptin Phosphate [Januvia] 100 mg PO DAILY 12/18/14 Atorvastatin Ca [Lipitor] 10 mg PO HS #1 tablet 12/22/14 Ranitidine [Zantac -] 150 mg PO BID #1 tablet 12/22/14 Cholecalciferol (Vitamin D3) [Vitamin D3 -] 1,000 unit PO DAILY 03/10/16 [place]-3 Fatty Acids [Fish Oil] 300 mg PO BID 03/10/16 Calcium Carb/Vitamin D3/Vit K1 [Citracal Soft Chew] 1 each PO DAILY 04/04/16 Fluticasone/Salmeterol [Advair 250-50 Diskus] 1 each IH BID 04/04/16 Ipratropium/Albuterol Sulfate [Combivent Respimat Inhal [place]] 4 gm IH QID PRN # 1 aer.w.adap 04/08/16 Latanoprost 0.005% Eye Drops [Xalatan 0.005% Eye Drops -] 1 drop OU HS 07/25/16 Aspirin [ASA -] 81 mg PO DAILY tab.chew 07/26/16 Calcium 250Mg/Vit-D 125 Units [Oscal 250 mg+D -] 1 combo PO DAILY 03/15/17 Family Disease History - Family Disease History Family Disease History: Heart Disease: Mother, Son, Other: Father (emphysema, PE ) Review of Systems Findings/Remarks: Full review of systems obtained, as per HPI and otherwise negative Physical Examination Vital Signs: Vital Signs Temperature 36.8 C 05/10/17 11:30 Pulse Rate 72 05/10/17 11:30 Respiratory Rate 16 05/10/17 11:30 Blood Pressure 122/67 05/10/17 11:30 O2 Sat by Pulse Oximetry (%) 97 05/10/17 11:30 Constitutional: Yes: Well Nourished, No Distress, Calm Eyes: Yes: Conjunctiva Clear, EOM Intact, PERRL Cardiovascular: Yes: Regular Rate and Rhythm. No: Gallop, Murmur, Rub Respiratory: Yes: Regular, CTA Bilaterally. No: Rales, Rhonchi, Wheezes Gastrointestinal: Yes: Normal Bowel Sounds, Soft. No: Distention, Tenderness Extremities: Yes: WNL Edema: No Labs: CBC, BMP 05/10/17 12:29 05/10/17 12:29 Imaging - Results Chest X-ray: Report Reviewed, Image Reviewed EKG: Image Reviewed Problem List - Problems (1) Vertigo Assessment/Plan: -vertigo vs orthostatic hypotension -suspect this is BPPV -will admit to telemetry observation -orthostatic vital signs -consult cardiology for palpitations -will also obtain CT scan to evaluate cerebellum -PT consult -trial of meclizine -follow up ECHO Code(s): R42 - DIZZINESS AND GIDDINESS (2) CAD (coronary artery disease) Assessment/Plan: -quiescent -continue home regimen Code(s): I25.10 - ATHSCL HEART DISEASE OF [place] CORONARY ARTERY W/O ANG PCTRS Qualifiers: Coronary Disease-Associated Artery/Lesion type: [place] artery [place] vs. transplanted heart: [place] heart Associated angina: without angina Qualified Code(s): I25.10 - Atherosclerotic heart disease of [place] coronary artery without angina pectoris (3) COPD (chronic obstructive pulmonary disease) Assessment/Plan: -stable -not in exacerbation -continue advair and combivent Code(s): J44.9 - CHRONIC OBSTRUCTIVE PULMONARY DISEASE, UNSPECIFIED Qualifiers: COPD type: unspecified COPD Qualified Code(s): J44.9 - Chronic obstructive pulmonary disease, unspecified (4) Diabetes Assessment/Plan: -diabetic diet -continue metformin and januvia Code(s): E11.9 - TYPE 2 DIABETES MELLITUS WITHOUT COMPLICATIONS Qualifiers: Diabetes mellitus type: type 2 (5) HTN (hypertension) Assessment/Plan: -patient says she is on diuretic but unsure -will continue losartan and coreg -cardiology prescribed diuretic, will see and evaluate if should be added while here Code(s): I10 - ESSENTIAL (PRIMARY) HYPERTENSION (6) Hypothyroid Assessment/Plan: -telemetry -check TFTs Code(s): E03.9 - HYPOTHYROIDISM, UNSPECIFIED (7) Palpitations Assessment/Plan: -check TFTs Code(s): R00.2 - PALPITATIONS
[2017-05-10] MEDS: MECLIZINE HCL 12.5 MG TABLET PO SCH ×3 (17:20→23:45)
[2017-05-10] MEDS: metFORMIN HCL 500 MG TABLET (FP) PO SCH (17:20)
[2017-05-10] MEDS ORDERED: MECLIZINE HCL 12.5 MG TABLET ONE (17:20)
[2017-05-10] MEDS ORDERED: metFORMIN HCL 500 MG TABLET (FP) ONE (17:20)
[2017-05-10] MEDS ORDERED: OMEGA PO SCH (22:00)
[2017-05-10] MEDS ORDERED: FATTY ACIDS PO SCH (22:00)
[2017-05-10] MEDS: SERTRALINE HCL 25 MG TABLET (FP) PO SCH (22:21)
[2017-05-10] MEDS: CARVEDILOL 6.25 MG TABLET (FP) PO SCH (22:21)
[2017-05-10] MEDS: ATORVASTATIN CA 10 MG TABLET (FP) PO SCH (22:21)
[2017-05-10] MEDS: LATANOPROST 0.005% OPHTH SOLN 2.5ML BOTTLE OU SCH (23:06)
[2017-05-10] MEDS: BUDESONIDE/FORMETEROL FUMARATE 80/4.5 mcg INHALER IH SCH (23:06)
[2017-05-10 23:55] VITALS: BMI 28.8
[2017-05-11] MEDS: metFORMIN HCL 500 MG TABLET (FP) PO SCH ×3 (06:29→16:35)
[2017-05-11] MEDS: sitaGLIPtin PHOSPHATE 100 MG TABLET (FP) PO SCH (06:29)
[2017-05-11] MEDS: MECLIZINE HCL 12.5 MG TABLET PO SCH ×3 (06:30→17:13)
[2017-05-11] MEDS: LEVOTHYROXINE NA 25 MCG TABLET (FP) PO SCH (06:30)
[2017-05-11 07:28] LABS: BASOPHIL 0.7 % (0-2.0); EOSINOPHIL 2.4 % (0-4.5); MCH 30.2 pg (25.7-33.7); MCHC 33.9 g/dl (32.0-36.0); MEAN CELL VOLUME 89.2 fl (80-96); MEAN PLT VOLUME 8.2 fl (7.5-11.1); NEUTROPHILS 54.6 % (42.8-82.8); PLATELET COUNT 247 K/MM3 (134-434); RDW 14.5 % (11.6-15.6); WHITE BLOOD COUNT 7.3 K/mm3 (4.0-10.0)
[2017-05-11 08:12] LABS: ANION GAP 10 (8-16); CALCIUM 8.8 mg/dL (8.5-10.1); CO2 28 mmol/L (21-32); CREATININE 0.8 mg/dL (0.55-1.02); GLUCOSE,RANDOM 95 mg/dL (74-106); MAGNESIUM 1.8 mg/dL (1.8-2.4); PHOSPHOROUS 3.9 mg/dL (2.5-4.9)
[2017-05-11 09:45] LABS: FREE T4 1.08 ng/dl (0.76-1.46); THYROID STIMULATING HORMONE 1.91 uIU/ml (0.358-3.74)
[2017-05-11] MEDS: LOSARTAN POTASSIUM 50 MG TABLET (FP) PO SCH (09:50)
[2017-05-11] MEDS: CARVEDILOL 6.25 MG TABLET (FP) PO SCH ×2 (09:50→21:56)
[2017-05-11] MEDS: CALCIUM 250MG/VIT-D 125 UNITS 1 COMBO TABLET PO SCH (09:50)
[2017-05-11] MEDS: CHOLECALCIFEROL (VITAMIN D3) 1,000 UNIT TABLET (FP) PO SCH (09:50)
[2017-05-11] MEDS: ASPIRIN 81 MG CHEWABLE TABLETS PO SCH (09:50)
[2017-05-11] MEDS: BUDESONIDE/FORMETEROL FUMARATE 80/4.5 mcg INHALER IH SCH ×2 (09:51→21:58)
[2017-05-11] MEDS ORDERED: PT OWN MED DRAWER 7, Y5N ONE (09:51)
--- NOTE | 2017-05-11 14:58 | PN ---
Progress Note (short form) - Note Progress Note: Chief Complaint: Events noted, notes reviewed, complaining of progressive generalized weakness, dyspnea and persistent palpitations, denies any chest pain History of Present Illness: Seen and examined on telemetry. Full consult dictated Echocardiography performed 07/23/2016 revealed normal bi-ventricular size and function, severe [place] 0.65 cm2 MG 65 mmHg, trace-mild AR, RVSP 40-50 mmHg Echocardiography performed 04/21/17 revealed mild degree of concentric left ventricular hypertrophy with normal left ventricular systolic function and estimated left ventricular ejection fraction between 65-70%, left atrial dilatation measuring 4.4 cm, normal right ventricular size and function, bio- prosthetic aortic valve with no evidence of aortic valve regurgitation and acceptable trans-valvular gradient with a mean trans-valvular gradient of 15 mmHg and a peak trans-valvular gradient of 29 mmHg, thickened mitral valve leaflets moderate to severe eccentrically/anteriorly directed mitral valve regurgitation (significant change in comparison to the prior study dated August 05, 2016), mild to moderate tricuspid valve regurgitation with calculated RVSP of 56 mmHg consistent with moderate degree of my hypertension ( significant change in comparison to the prior study dated August 05, 2016). - Current Medication List Current Medications Acetaminophen (Tylenol -) 650 mg PO Q4H PRN PRN Reason: FEVER OR PAIN Albuterol/Ipratropium (Duoneb -) 1 amp NEB Q6H PRN PRN Reason: ASTHMA Aspirin (Asa -) 81 mg PO DAILY [facility] Last Admin: 07/25/16 10:09 Dose: 81 mg Atorvastatin Calcium (Lipitor -) 10 mg PO HS [facility] Last Admin: 07/24/16 22:27 Dose: 10 mg Budesonide/Formoterol Fumarate (Symbicort 80/4.5mcg -) 2 puff IH BID [facility] Last Admin: 07/25/16 10:10 Dose: 2 puff Carvedilol (Coreg -) 6.25 mg PO BID [facility] Last Admin: 07/25/16 10:09 Dose: 6.25 mg Cholecalciferol (Vitamin D3 -) 1,000 unit PO DAILY [facility] Last Admin: 07/25/16 10:09 Dose: 1,000 unit Furosemide (Lasix Injection -) 40 mg IVPB DAILY [facility] Last Admin: 07/25/16 10:18 Dose: Not Given Furosemide (Lasix Injection -) 40 mg IVPUSH ONCE ONE Stop: 07/25/16 16:01 Azithromycin 250 mg/ Dextrose 250 mls @ 250 mls/hr IVPB DAILY [facility] Last Admin: 07/25/16 11:08 Dose: 250 mls/hr Ceftriaxone Sodium (Rocephin 1gm Ivpb (Pre-Docked)) 50 mls @ 100 mls/hr IVPB DAILY [facility] Last Admin: 07/25/16 10:09 Dose: 100 mls/hr Insulin Aspart (Novolog Vial Sliding Scale -) 1 vial SQ ACHS [facility] PRN Reason: Protocol Last Admin: 07/25/16 06:42 Dose: Not Given Lactobacillus Acidophilus (Bacid -) 1 tab PO DAILY [facility] Last Admin: 07/25/16 10:09 Dose: 1 tab Levothyroxine Sodium (Synthroid -) 25 mcg PO ACBK [facility] Last Admin: 07/25/16 06:42 Dose: 25 mcg Losartan Potassium (Cozaar -) 50 mg PO DAILY [facility] Last Admin: 07/25/16 10:09 Dose: 50 mg Metformin HCl (Glucophage -) 500 mg PO TIDAC [facility] Last Admin: 07/25/16 06:00 Dose: 500 mg Ranitidine HCl (Zantac -) 150 mg PO BID [facility] Last Admin: 07/25/16 10:09 Dose: 150 mg Sertraline HCl (Zoloft -) 25 mg PO HS [facility] Last Admin: 07/24/16 22:27 Dose: 25 mg Sitagliptin Phosphate (Januvia -) 100 mg PO ACBK [facility] Last Admin: 07/25/16 06:40 Dose: 100 mg Review of Systems - Review of Systems Constitutional: denies: Chills, Fever Cardiovascular: As noted above Respiratory: reports: Cough without Sputum Production Gastrointestinal: denies: Nausea, Vomiting, Diarrhea, Constipation or Abdominal Discomfort Neurological: No Symptoms Reported - Objective Vital Signs: Last Vital Signs Temp Pulse Resp BP Pulse Ox 98.3 F 69 18 113/55 93 L 07/25/16 06:20 07/25/16 06:20 07/25/16 06:20 07/25/16 06:20 07/24/16 14:15 Constitutional: No Distress, Calm Neck: Supple Negative JVD Cardiovascular: S1 S2 Regular Rate and Rhythm Grade 3-4/6 SM Respiratory: Diminished at the Bases Bilaterally Gastrointestinal: Soft Benign Normal Bowel Sounds Ext: No Edema Labs: CBC, BMP 05/11/17 05:20 05/11/17 05:20 Hepatic Panel Total Bilirubin 0.5 mg/dL (0.2-1.0) 05/10/17 12:29 AST 17 U/L (15-37) D 05/10/17 12:29 ALT 17 U/L (12-78) D 05/10/17 12:29 Alkaline Phosphatase 48 U/L (45-117) 05/10/17 12:29 Albumin 3.5 g/dl (3.4-5.0) 05/10/17 12:29 Assessment/Plan ASSESSMENT: 1. Dyspnea most likely related to sub-acute mitral valve regurgitation etiology of which is to be determined, new onset 2. Aortic valve disease critical aortic valve stenosis valve valve area of 0.6 cm on echocardiography performed September 25, 2015 post transcutaneous aortic valve replacement TAVR August 03, 2016 (23 mm Qian 3 Trans-catheter Tissue Valve) 3. Coronary artery disease abnormal myocardial perfusion imaging study September negative pharmacologic Dipyridamole myocardial perfusion imaging study for myocardial ischemia April 26, 2005 non-obstructive coronary artery disease on coronary angiography July 26, 2016 angina pectoris endothelial dysfunction 4. Diastolic left ventricular dysfunction with acute on chronic class I-II [place] [employer] classification left ventricular failure, currently compensated/euvolemic 5. Tricuspid valve regurgitation trace in severity with RVSP of 37 mmHg on echocardiography performed August 05, 2016 and mild to moderate tricuspid valve regurgitation with calculated RVSP of 56 mmHg on echocardiography performed April 21, 2017 consistent with mild to moderate degree of pulmonary hypertension 6. Hypertensive cardiovascular disease 7. [id number] diabetes mellitus 8. Hypercholesterolemia 9. History of retinal hemorrhages 10. Carotid stenosis mild in severity 11. Hypothyroidism 12. Chronic obstructive pulmonary disease 13. History gastro-esophageal reflux disease 14. History of gastro-intestinal bleed 15. History of diverticular disease 16. 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 History of degenerative joint disease PLAN: 1. Continue IV Lasix with close monitoring of renal function 2. Continue Coreg 3. Continue Cozaar 4. Continue Lipitor 5. Continue ASA 6. Plan to proceed with DON for further evaluation of the above noted MR Kezia Benz MD
--- NOTE | 2017-05-11 15:53 | PN ---
Progress Note, Physician Chief Complaint: Ms Valadez says she is better today, was up with PT and able to walk. However states she became dizzy at one point. No cp, sob, n/v. - Current Medication List Current Medications: Active Medications Acetaminophen (Tylenol -) 650 mg PO Q4H PRN PRN Reason: FEVER OR PAIN Aspirin (Asa -) 81 mg PO DAILY [facility] Last Admin: 05/11/17 09:50 Dose: 81 mg Atorvastatin Calcium (Lipitor -) 10 mg PO HS [facility] Last Admin: 05/10/17 22:21 Dose: 10 mg Budesonide/Formoterol Fumarate (Symbicort 80/4.5mcg -) 2 puff IH BID [facility] Last Admin: 05/11/17 09:51 Dose: 2 inh Calcium/Vitamin D (Oscal 250 Mg+D -) 1 tab PO DAILY [facility] Last Admin: 05/11/17 09:50 Dose: 1 tab Carvedilol (Coreg -) 6.25 mg PO BID [facility] Last Admin: 05/11/17 09:50 Dose: 6.25 mg Cholecalciferol (Vitamin D3 -) 1,000 unit PO DAILY [facility] Last Admin: 05/11/17 09:50 Dose: 1,000 unit Latanoprost (Xalatan 0.005% Eye Drops -) 1 drop OU HS [facility] Last Admin: 05/10/17 23:06 Dose: 1 drop Levothyroxine Sodium (Synthroid -) 25 mcg PO AM [facility] Last Admin: 05/11/17 06:30 Dose: 25 mcg Losartan Potassium (Cozaar -) 50 mg PO DAILY [facility] Last Admin: 05/11/17 09:50 Dose: 50 mg Meclizine HCl (Antivert -) 12.5 mg PO Q6HPO [facility] Last Admin: 05/11/17 13:13 Dose: 12.5 mg Metformin HCl (Glucophage -) 500 mg PO TIDAC [facility] Last Admin: 05/11/17 11:14 Dose: 500 mg Non-Formulary Medication (Ipratropium/Albuterol Sulfate [Combivent Respimat Inhal [place]]) 4 gm IH QID PRN PRN Reason: SHORT OF BREATH/WHEEZING Non-Formulary Medication ([place]-3 Fatty Acids [Fish Oil]) 1,200 mg PO BID [facility] Sertraline HCl (Zoloft -) 25 mg PO HS [facility] Last Admin: 05/10/17 22:21 Dose: 25 mg Sitagliptin Phosphate (Januvia -) 100 mg PO AM [facility] Last Admin: 05/11/17 06:29 Dose: 100 mg - Objective Vital Signs: Vital Signs Temperature 36.6 C 05/11/17 14:00 Pulse Rate 68 05/11/17 14:00 Respiratory Rate 18 05/11/17 09:00 Blood Pressure 101/58 05/11/17 14:00 O2 Sat by Pulse Oximetry (%) 96 05/11/17 09:00 Constitutional: Yes: Well Nourished, No Distress, Calm Cardiovascular: Yes: Regular Rate and Rhythm, Murmur. No: Gallop, Rub Respiratory: Yes: Regular, CTA Bilaterally. No: Rales, Rhonchi, Wheezes Gastrointestinal: Yes: Normal Bowel Sounds, Soft. No: Distention, Tenderness Extremities: Yes: WNL Edema: No Labs: CBC, BMP 05/11/17 05:20 05/11/17 05:20 Problem List - Problems (1) Vertigo Code(s): R42 - DIZZINESS AND GIDDINESS (2) CAD (coronary artery disease) Code(s): I25.10 - ATHSCL HEART DISEASE OF [place] CORONARY ARTERY W/O ANG PCTRS Qualifiers: Coronary Disease-Associated Artery/Lesion type: [place] artery [place] vs. transplanted heart: [place] heart Associated angina: without angina Qualified Code(s): I25.10 - Atherosclerotic heart disease of [place] coronary artery without angina pectoris (3) COPD (chronic obstructive pulmonary disease) Code(s): J44.9 - CHRONIC OBSTRUCTIVE PULMONARY DISEASE, UNSPECIFIED Qualifiers: COPD type: unspecified COPD Qualified Code(s): J44.9 - Chronic obstructive pulmonary disease, unspecified (4) Diabetes Code(s): E11.9 - TYPE 2 DIABETES MELLITUS WITHOUT COMPLICATIONS Qualifiers: Diabetes mellitus type: type 2 (5) HTN (hypertension) Code(s): I10 - ESSENTIAL (PRIMARY) HYPERTENSION (6) Hypothyroid Code(s): E03.9 - HYPOTHYROIDISM, UNSPECIFIED (7) Palpitations Code(s): R00.2 - PALPITATIONS Assessment/Plan (1) Vertigo Assessment/Plan: -continue meclizine -patient said she is improved -may try to increase if continues to have vertigo with walking Code(s): R42 - DIZZINESS AND GIDDINESS (2) CAD (coronary artery disease) Assessment/Plan: -quiescent -continue home regimen Code(s): I25.10 - ATHSCL HEART DISEASE OF [place] CORONARY ARTERY W/O ANG PCTRS Qualifiers: Coronary Disease-Associated Artery/Lesion type: [place] artery [place] vs. transplanted heart: [place] heart Associated angina: without angina Qualified Code(s): I25.10 - Atherosclerotic heart disease of [place] coronary artery without angina pectoris (3) COPD (chronic obstructive pulmonary disease) Assessment/Plan: -stable -not in exacerbation -continue advair and combivent -note: per ER notes and cardiology notes patient is complaining of MALONEY, however to me states it is dizziness and not MALONEY Code(s): J44.9 - CHRONIC OBSTRUCTIVE PULMONARY DISEASE, UNSPECIFIED Qualifiers: COPD type: unspecified COPD Qualified Code(s): J44.9 - Chronic obstructive pulmonary disease, unspecified (4) Diabetes Assessment/Plan: -diabetic diet -continue metformin and januvia Code(s): E11.9 - TYPE 2 DIABETES MELLITUS WITHOUT COMPLICATIONS Qualifiers: Diabetes mellitus type: type 2 (5) HTN (hypertension) Assessment/Plan: -patient says she is on diuretic but unsure -will continue losartan and coreg -suspect patient diuretic is lasix per cardiology note, however I will not start it secondary to hypotension Code(s): I10 - ESSENTIAL (PRIMARY) HYPERTENSION (6) Hypothyroid Assessment/Plan: -TFTs normal Code(s): E03.9 - HYPOTHYROIDISM, UNSPECIFIED (7) Palpitations Assessment/Plan: -continue telemetry Code(s): R00.2 - PALPITATIONS
--- NOTE | 2017-05-11 19:00 | CONS ---
DATE OF CONSULTATION: 05/11/2017 REQUESTING PHYSICIAN: Mac Crawford M.D., Jorje Tom M.D. CHIEF COMPLAINT: Progressive weakness. Progressive dyspnea. Palpitations. An 81-year-old female known to our service with known history of coronary artery disease, nonobstructive coronary artery disease on coronary angiography, angina pectoris, diastolic left ventricular dysfunction with class 1-2 [place] Heart Association classification left ventricular failure, aortic valve disease, aortic stenosis post transcatheter, aortic valve replacement August 03, 2016, mitral valve regurgitation severe in severity on recent echocardiography performed in the office dated April 21, 2017, tricuspid valve regurgitation mild to moderate in severity with calculated RVSP 56 mmHg on echocardiography performed April 21, 2017, consistent with mild to moderate degree of pulmonary hypertension, hypertensive cardiovascular disease, non-insulin dependent diabetes mellitus, hypercholesterolemia, carotid stenosis mild in severity, hypothyroidism, chronic obstructive pulmonary disease, gastroesophageal reflux disease, history of gastrointestinal bleed, history of diverticular disease, history of degenerative lumbosacral disease with chronic low back pain syndrome and degenerative joint disease, who was recently evaluated in the office at which point she had reported progressive exertional dyspnea and palpitations. Evaluation included followup echocardiography which was performed April 21, 2017, which revealed normal left ventricular systolic function with appropriately seated and functioning bioprosthetic aortic valve with acceptable transvalvular gradient and moderate to severe eccentric anteriorly directed mitral valve regurgitation, significant change in comparison to the prior study performed August 05, 2016. Holter monitor was to be obtained, but patient presented to the hospital with increasing dyspnea, progressive weakness and palpitations. Patient denied any orthopnea, paroxysmal nocturnal dyspnea or peripheral edema. Patient denied any chest discomfort. Patient denied any syncope. Patient has been reporting extreme fatigue and tiredness. PAST MEDICAL HISTORY: Coronary artery disease, angina pectoris, diastolic left ventricular dysfunction with chronic class 1-2 [place] Heart Association classification left ventricular function. Aortic valve disease, aortic valve stenosis, post transcutaneous aortic valve replacement, mitral valve regurgitation moderate to severe in severity as noted above, tricuspid valve regurgitation mild to moderate in severity with mild to moderate degree of hypertension, hypertensive cardiovascular disease, non-insulin dependent diabetes mellitus, hypercholesterolemia, carotid stenosis mild in severity. Hypothyroidism. Chronic obstructive pulmonary disease. Gastroesophageal reflux disease. Diverticular disease. Degenerative lumbosacral disk disease with chronic low back pain syndrome and degenerative joint disease. SOCIAL HISTORY: Remote history of tobacco abuse. FAMILY HISTORY: Positive coronary artery disease. ALLERGIES: QUININE and SULFA. MEDICATION: Medical therapy currently includes acetaminophen 650 mg every 4 hours as needed, DuoNeb nebulizer every 6 hours as needed, Ecotrin 81 mg once a day, Lipitor 10 mg once a day, Symbicort 2 puffs twice a day, carvedilol 6.25 mg twice a day, vitamin D 1000 international units once a day, Lasix 40 mg IV once a day, Zithromax 250 once a day, ceftriaxone 50 mg once a day, insulin coverage, Bacid 1 tablet once a day, Synthroid 25 mcg once a day, Cozaar 50 mg once a day, metformin 500 mg 3 times a day, Zantac 150 mg twice a day, Zoloft 25 mg once a day, Januvia 100 mg once a day. REVIEW OF SYSTEMS: Head and neck: Denies headache, photophobia, blurring of vision. Respiratory: No cough, sputum production. Cardiovascular: As noted above. Gastrointestinal: Denies nausea, vomiting, diarrhea, abdominal discomfort. Genitourinary: No symptoms reported. Musculoskeletal: History of degenerative joint disease. PHYSICAL EXAMINATION: Head/Neck: Pupils are equally reactive to light and accommodation, extraocular muscles are intact, anicteric sclera, no lymphadenopathy, no thyromegaly. Chest: Diminished breath sounds at the bases bilaterally. Cardiovascular: S1, S2. Regular. Grade 3-4/6 systolic apical murmur. Abdomen: Soft, benign. Normoactive bowel sounds. Extremity: Negative edema. 1+ distal pulses. No calf tenderness. CBC: Reveals white cell count 7.3, hemoglobin 10.8, platelet count 247. Basic metabolic profile: Sodium 140, potassium 4.6, BUN 19, creatinine 0.8, glucose 95. EKG revealed sinus rhythm with left axis deviation, poor R wave progression, nonspecific T wave abnormality. Repeat echocardiography report was noted. ASSESSMENT: 1. Dyspnea most likely related to subacute mitral valve regurgitation, etiology of which is to be determined. Tethered leaflet unlikely to be ruptured cord but to be evaluated, new onset. 2. Aortic valve disease, aortic valve stenosis post transcutaneous aortic valve replacement performed August 03, 2016. 3. Coronary artery disease, nonobstructive, on coronary angiography, angina pectoris. 4. Diastolic left ventricular dysfunction with [id number] class 1-2 [place] Heart Association classification left ventricular function, currently compensated. 5. Tricuspid valve regurgitation, mild to moderate severity, with mild to moderate degree of pulmonary hypertension. 6. Hypertensive cardiovascular disease. 7. Non-insulin dependent diabetes mellitus. 8. Hypertension. 9. History of retinal hemorrhage. 10. Carotid stenosis mild in severity. 11. Hypothyroidism. 12. Chronic obstructive pulmonary disease. 13. History of gastroesophageal reflux disease. 14. History of gastrointestinal bleed. 15. History of diverticular disease. 16. History of degenerative lumbosacral disk disease with chronic low back pain syndrome. 17. History of degenerative joint disease. RECOMMENDATION: 1. Continuation of IV Lasix with close monitoring of renal function. 2. Continuation of carvedilol. 3. Continuation of Cozaar. 4. Continuation of Lipitor. 5. Continuation of aspirin. Plan to proceed with transesophageal echocardiography for further evaluation of the above noted mitral valve pathology, mitral valve regurgitation discussed in detail with the patient. Thank you for the kind referral. CARLIN KENT M.D. [id number]
[2017-05-11] MEDS: ATORVASTATIN CA 10 MG TABLET (FP) PO SCH (21:56)
[2017-05-11] MEDS: SERTRALINE HCL 25 MG TABLET (FP) PO SCH (21:56)
[2017-05-11] MEDS: LATANOPROST 0.005% OPHTH SOLN 2.5ML BOTTLE OU SCH (21:56)
[2017-05-12] MEDS: MECLIZINE HCL 12.5 MG TABLET PO SCH ×4 (00:56→18:02)
[2017-05-12] MEDS: sitaGLIPtin PHOSPHATE 100 MG TABLET (FP) PO SCH (06:14)
[2017-05-12] MEDS: metFORMIN HCL 500 MG TABLET (FP) PO SCH ×3 (06:14→18:02)
[2017-05-12] MEDS: LEVOTHYROXINE NA 25 MCG TABLET (FP) PO SCH (06:14)
[2017-05-12 07:04] LABS: BASOPHIL 0.5 % (0-2.0); EOSINOPHIL 2.5 % (0-4.5); MCH 29.8 pg (25.7-33.7); MCHC 33.9 g/dl (32.0-36.0); MEAN CELL VOLUME 87.9 fl (80-96); MEAN PLT VOLUME 8.3 fl (7.5-11.1); NEUTROPHILS 54.2 % (42.8-82.8); PLATELET COUNT 254 K/MM3 (134-434); RDW 14.8 % (11.6-15.6); WHITE BLOOD COUNT 8.6 K/mm3 (4.0-10.0)
[2017-05-12 07:30] LABS: ANION GAP 8 (8-16); CALCIUM 9.1 mg/dL (8.5-10.1); CO2 29 mmol/L (21-32); GLUCOSE,RANDOM 124 mg/dL (74-106); MAGNESIUM 2.2 mg/dL (1.8-2.4)
[2017-05-12 07:32] LABS: CREATININE 0.9 mg/dL (0.55-1.02); PHOSPHOROUS 4.7 mg/dL (2.5-4.9)
[2017-05-12] MEDS: BUDESONIDE/FORMETEROL FUMARATE 80/4.5 mcg INHALER IH SCH ×2 (10:13→22:01)
[2017-05-12] MEDS: CARVEDILOL 6.25 MG TABLET (FP) PO SCH ×2 (10:35→22:01)
[2017-05-12] MEDS ORDERED: ALBUTEROL SO4 2.5/IPRATROPIUM 0.5 INH SOL 3 ML VIAL.NEB. NEB PRN (11:29)
--- NOTE | 2017-05-12 11:32 | PN ---
Progress Note, Physician Chief Complaint: Ms Valadez says she feels weak and tired, but thinks it is from staying in bed. Encouraged to walk around and sit in a chair more. Stated today she walked a short distance, did not have dizziness but began to have shortness of breath. Says the shortness of breath was not bad though. No cp or n/v. - Current Medication List Current Medications: Active Medications Acetaminophen (Tylenol -) 650 mg PO Q4H PRN PRN Reason: FEVER OR PAIN Aspirin (Asa -) 81 mg PO DAILY [facility] Last Admin: 05/11/17 09:50 Dose: 81 mg Atorvastatin Calcium (Lipitor -) 10 mg PO HS [facility] Last Admin: 05/11/17 21:56 Dose: 10 mg Budesonide/Formoterol Fumarate (Symbicort 80/4.5mcg -) 2 puff IH BID [facility] Last Admin: 05/12/17 10:13 Dose: 2 inh Calcium/Vitamin D (Oscal 250 Mg+D -) 1 tab PO DAILY [facility] Last Admin: 05/11/17 09:50 Dose: 1 tab Carvedilol (Coreg -) 6.25 mg PO BID [facility] Last Admin: 05/11/17 21:56 Dose: 6.25 mg Cholecalciferol (Vitamin D3 -) 1,000 unit PO DAILY [facility] Last Admin: 05/11/17 09:50 Dose: 1,000 unit Latanoprost (Xalatan 0.005% Eye Drops -) 1 drop OU HS [facility] Last Admin: 05/11/17 21:56 Dose: 1 drop Levothyroxine Sodium (Synthroid -) 25 mcg PO AM [facility] Last Admin: 05/12/17 06:14 Dose: Not Given Losartan Potassium (Cozaar -) 50 mg PO DAILY [facility] Last Admin: 05/11/17 09:50 Dose: 50 mg Meclizine HCl (Antivert -) 12.5 mg PO Q6HPO [facility] Last Admin: 05/12/17 06:14 Dose: Not Given Metformin HCl (Glucophage -) 500 mg PO TIDAC [facility] Last Admin: 05/12/17 06:14 Dose: Not Given Non-Formulary Medication (Ipratropium/Albuterol Sulfate [Combivent Respimat Inhal [place]]) 4 gm IH QID PRN PRN Reason: SHORT OF BREATH/WHEEZING Non-Formulary Medication ([place]-3 Fatty Acids [Fish Oil]) 1,200 mg PO BID [facility] Sertraline HCl (Zoloft -) 25 mg PO HS [facility] Last Admin: 05/11/17 21:56 Dose: 25 mg Sitagliptin Phosphate (Januvia -) 100 mg PO AM [facility] Last Admin: 05/12/17 06:14 Dose: Not Given - Objective Vital Signs: Vital Signs Temperature 36.8 C 05/12/17 08:15 Pulse Rate 76 05/12/17 08:15 Respiratory Rate 14 05/12/17 08:15 Blood Pressure 128/76 05/12/17 08:15 O2 Sat by Pulse Oximetry (%) 98 05/11/17 21:00 Constitutional: Yes: Well Nourished, No Distress, Calm Cardiovascular: Yes: Regular Rate and Rhythm, Murmur. No: Gallop, Rub Respiratory: Yes: Regular, CTA Bilaterally. No: Rales, Rhonchi, Wheezes Gastrointestinal: Yes: Normal Bowel Sounds, Soft. No: Distention, Tenderness Extremities: Yes: WNL Edema: No Labs: CBC, BMP 05/12/17 05:10 05/12/17 05:10 Problem List - Problems (1) Vertigo Code(s): R42 - DIZZINESS AND GIDDINESS (2) CAD (coronary artery disease) Code(s): I25.10 - ATHSCL HEART DISEASE OF [place] CORONARY ARTERY W/O ANG PCTRS Qualifiers: Coronary Disease-Associated Artery/Lesion type: [place] artery [place] vs. transplanted heart: [place] heart Associated angina: without angina Qualified Code(s): I25.10 - Atherosclerotic heart disease of [place] coronary artery without angina pectoris (3) COPD (chronic obstructive pulmonary disease) Code(s): J44.9 - CHRONIC OBSTRUCTIVE PULMONARY DISEASE, UNSPECIFIED Qualifiers: COPD type: unspecified COPD Qualified Code(s): J44.9 - Chronic obstructive pulmonary disease, unspecified (4) Diabetes Code(s): E11.9 - TYPE 2 DIABETES MELLITUS WITHOUT COMPLICATIONS Qualifiers: Diabetes mellitus type: type 2 (5) HTN (hypertension) Code(s): I10 - ESSENTIAL (PRIMARY) HYPERTENSION (6) Hypothyroid Code(s): E03.9 - HYPOTHYROIDISM, UNSPECIFIED (7) Palpitations Code(s): R00.2 - PALPITATIONS Assessment/Plan (1) Vertigo Assessment/Plan: -continue meclizine -currently resolved Code(s): R42 - DIZZINESS AND GIDDINESS (2) CAD (coronary artery disease) Assessment/Plan: -quiescent -continue home regimen Code(s): I25.10 - ATHSCL HEART DISEASE OF [place] CORONARY ARTERY W/O ANG PCTRS Qualifiers: Coronary Disease-Associated Artery/Lesion type: [place] artery [place] vs. transplanted heart: [place] heart Associated angina: without angina Qualified Code(s): I25.10 - Atherosclerotic heart disease of [place] coronary artery without angina pectoris (3) COPD (chronic obstructive pulmonary disease) Assessment/Plan: -stable -not in exacerbation -continue advair -prn duonebs -today said had slight MAL[place] Code(s): J44.9 - CHRONIC OBSTRUCTIVE PULMONARY DISEASE, UNSPECIFIED Qualifiers: COPD type: unspecified COPD Qualified Code(s): J44.9 - Chronic obstructive pulmonary disease, unspecified (4) Diabetes Assessment/Plan: -diabetic diet -continue metformin and januvia Code(s): E11.9 - TYPE 2 DIABETES MELLITUS WITHOUT COMPLICATIONS Qualifiers: Diabetes mellitus type: type 2 (5) HTN (hypertension) Assessment/Plan: -patient says she is on diuretic but unsure -will continue losartan and coreg -suspect patient diuretic is lasix per cardiology note, however I will not start it secondary to hypotension Code(s): I10 - ESSENTIAL (PRIMARY) HYPERTENSION (6) Hypothyroid Assessment/Plan: -TFTs normal Code(s): E03.9 - HYPOTHYROIDISM, UNSPECIFIED (7) Palpitations Assessment/Plan: -continue telemetry Code(s): R00.2 - PALPITATIONS
--- NOTE | 2017-05-12 12:11 | PN ---
Progress Note, Physician Chief Complaint: Events noted Not in distress History of Present Illness: Patient was seen and examined. Awake and alert. Chart was reviewed Denies chest pain, SOB or palpitations - Current Medication List Current Medications: Active Medications Acetaminophen (Tylenol -) 650 mg PO Q4H PRN PRN Reason: FEVER OR PAIN Albuterol/Ipratropium (Duoneb -) 1 amp NEB Q6H PRN PRN Reason: SHORTNESS OF BREATH Aspirin (Asa -) 81 mg PO DAILY [facility] Last Admin: 05/11/17 09:50 Dose: 81 mg Atorvastatin Calcium (Lipitor -) 10 mg PO HS [facility] Last Admin: 05/11/17 21:56 Dose: 10 mg Budesonide/Formoterol Fumarate (Symbicort 80/4.5mcg -) 2 puff IH BID [facility] Last Admin: 05/12/17 10:13 Dose: 2 inh Calcium/Vitamin D (Oscal 250 Mg+D -) 1 tab PO DAILY [facility] Last Admin: 05/11/17 09:50 Dose: 1 tab Carvedilol (Coreg -) 6.25 mg PO BID [facility] Last Admin: 05/11/17 21:56 Dose: 6.25 mg Cholecalciferol (Vitamin D3 -) 1,000 unit PO DAILY [facility] Last Admin: 05/11/17 09:50 Dose: 1,000 unit Latanoprost (Xalatan 0.005% Eye Drops -) 1 drop OU HS [facility] Last Admin: 05/11/17 21:56 Dose: 1 drop Levothyroxine Sodium (Synthroid -) 25 mcg PO AM [facility] Last Admin: 05/12/17 06:14 Dose: Not Given Losartan Potassium (Cozaar -) 50 mg PO DAILY [facility] Last Admin: 05/11/17 09:50 Dose: 50 mg Meclizine HCl (Antivert -) 12.5 mg PO Q6HPO [facility] Last Admin: 05/12/17 06:14 Dose: Not Given Metformin HCl (Glucophage -) 500 mg PO TIDAC [facility] Last Admin: 05/12/17 06:14 Dose: Not Given Non-Formulary Medication ([place]-3 Fatty Acids [Fish Oil]) 1,200 mg PO BID [facility] Sertraline HCl (Zoloft -) 25 mg PO HS [facility] Last Admin: 05/11/17 21:56 Dose: 25 mg Sitagliptin Phosphate (Januvia -) 100 mg PO AM [facility] Last Admin: 05/12/17 06:14 Dose: Not Given - Objective Vital Signs: Vital Signs Temperature 98.2 F 05/12/17 08:15 Pulse Rate 76 05/12/17 08:15 Respiratory Rate 14 05/12/17 08:15 Blood Pressure 128/76 05/12/17 08:15 O2 Sat by Pulse Oximetry (%) 98 05/11/17 21:00 Neck: Yes: Supple Cardiovascular: Yes: Regular Rate and Rhythm, Murmur (3/6 SM apex), S1, S2 Respiratory: Yes: CTA Bilaterally Gastrointestinal: Yes: Normal Bowel Sounds, Soft. No: Tenderness Edema: No Additional Findings/Remarks: - Review of Systems Constitutional: denies: Chills, Fever HENT: denies: Difficult Swallowing, Throat Pain Neck: denies: Stiffness, Tenderness Cardiovascular: reports: Chest Pain. denies: Palpitations, Shortness of Breath Respiratory: denies: Cough, Hemoptysis, Orthopnea, PND, SOB, SOB on Exertion Gastrointestinal: denies: Abdominal Pain, Constipation, Diarrhea, Melena, Nausea , Rectal Bleeding, Vomiting Genitourinary: denies: Dysuria Musculoskeletal: denies: Back Pain, Joint Pain Neurological: denies: Dizziness, Headache, Seizure, Syncope, Weakness Labs: CBC, BMP 05/12/17 05:10 05/12/17 05:10 Problem List - Problems (1) S/P TAVR (transcatheter aortic valve replacement) Code(s): Z95.2 - PRESENCE OF PROSTHETIC HEART VALVE (2) Acute on chronic diastolic (congestive) heart failure Code(s): I50.33 - ACUTE ON CHRONIC DIASTOLIC (CONGESTIVE) HEART FAILURE (3) Aortic stenosis Code(s): I35.0 - NONRHEUMATIC AORTIC (VALVE) STENOSIS Qualifiers: Cardiac valve disease etiology: nonrheumatic Qualified Code(s): I35.0 - Nonrheumatic aortic (valve) stenosis (4) CAD (coronary artery disease) Code(s): I25.10 - ATHSCL HEART DISEASE OF [place] CORONARY ARTERY W/O ANG PCTRS Qualifiers: Coronary Disease-Associated Artery/Lesion type: [place] artery [place] vs. transplanted heart: [place] heart Associated angina: without angina Qualified Code(s): I25.10 - Atherosclerotic heart disease of [place] coronary artery without angina pectoris (5) COPD (chronic obstructive pulmonary disease) Code(s): J44.9 - CHRONIC OBSTRUCTIVE PULMONARY DISEASE, UNSPECIFIED Qualifiers: COPD type: unspecified COPD Qualified Code(s): J44.9 - Chronic obstructive pulmonary disease, unspecified (6) Diabetes Code(s): E11.9 - TYPE 2 DIABETES MELLITUS WITHOUT COMPLICATIONS Qualifiers: Diabetes mellitus type: type 2 (7) HTN (hypertension) Code(s): I10 - ESSENTIAL (PRIMARY) HYPERTENSION Qualifiers: Hypertension type: essential hypertension Qualified Code(s): I10 - Essential (primary) hypertension (8) Pulmonary hypertension Code(s): I27.2 - OTHER SECONDARY PULMONARY HYPERTENSION * DO NOT USE * (9) Shortness of breath Code(s): R06.02 - SHORTNESS OF BREATH (10) Mitral valve regurgitation Code(s): I34.0 - NONRHEUMATIC MITRAL (VALVE) INSUFFICIENCY Qualifiers: Cardiac valve disease etiology: nonrheumatic Qualified Code(s): I34.0 - Nonrheumatic mitral (valve) insufficiency Assessment/Plan 1. Dyspnea most likely related to sub-acute mitral valve regurgitation etiology 2. Aortic valve disease critical aortic valve stenosis post transcutaneous aortic valve replacement TAVR (23 mm Qian 3 Trans-catheter Tissue Valve) 3. Coronary artery disease 4. Diastolic left ventricular dysfunction with acute on chronic class I-II [place] Heart Association classification left ventricular failure, currently compensated/euvolemic 5. Tricuspid valve regurgitation 6. HTN/HCVD 7. NIDDM 8. Hypercholesterolemia 9. History of retinal hemorrhages 10. Carotid stenosis 11. Hypothyroidism 12. Chronic obstructive pulmonary disease 13. History gastro-esophageal reflux disease 14. History of gastro-intestinal bleed 15. History of diverticular disease 16. 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 History of degenerative joint disease PLAN: 1. Plan for DON today to assess mitral valve regurgitation. 2. Continue Coreg and Cozaar 3. Continue Lipitor 4. Continue ASA Further treatment and management to follow regarding mitral valve regurgitation Abiodun Cabral MD
[2017-05-12] MEDS: CHOLECALCIFEROL (VITAMIN D3) 1,000 UNIT TABLET (FP) PO SCH (13:03)
[2017-05-12] MEDS: CALCIUM 250MG/VIT-D 125 UNITS 1 COMBO TABLET PO SCH (17:58)
[2017-05-12] MEDS: LOSARTAN POTASSIUM 50 MG TABLET (FP) PO SCH (17:58)
[2017-05-12] MEDS: ASPIRIN 81 MG CHEWABLE TABLETS PO SCH (17:58)
[2017-05-12] MEDS: LATANOPROST 0.005% OPHTH SOLN 2.5ML BOTTLE OU SCH (22:01)
[2017-05-12] MEDS: SERTRALINE HCL 25 MG TABLET (FP) PO SCH (22:01)
[2017-05-12] MEDS: ATORVASTATIN CA 10 MG TABLET (FP) PO SCH (22:01)
[2017-05-13] MEDS: MECLIZINE HCL 12.5 MG TABLET PO SCH ×3 (00:11→12:03)
[2017-05-13] MEDS: metFORMIN HCL 500 MG TABLET (FP) PO SCH ×2 (06:15→10:16)
[2017-05-13] MEDS: sitaGLIPtin PHOSPHATE 100 MG TABLET (FP) PO SCH (06:15)
[2017-05-13] MEDS: LEVOTHYROXINE NA 25 MCG TABLET (FP) PO SCH (06:15)
[2017-05-13] MEDS: CALCIUM 250MG/VIT-D 125 UNITS 1 COMBO TABLET PO SCH (10:16)
[2017-05-13] MEDS: ASPIRIN 81 MG CHEWABLE TABLETS PO SCH (10:17)
[2017-05-13] MEDS: CARVEDILOL 6.25 MG TABLET (FP) PO SCH (10:17)
[2017-05-13] MEDS: CHOLECALCIFEROL (VITAMIN D3) 1,000 UNIT TABLET (FP) PO SCH (10:17)
[2017-05-13] MEDS: LOSARTAN POTASSIUM 50 MG TABLET (FP) PO SCH (10:18)
[2017-05-13] MEDS: BUDESONIDE/FORMETEROL FUMARATE 80/4.5 mcg INHALER IH SCH (10:20)
--- NOTE | 2017-05-13 10:50 | PN ---
Progress Note, Physician Chief Complaint: Ms Valadez says she feels good today. Still with some dyspnea on exertion but dizziness has resolved. No cp or n/v. - Current Medication List Current Medications: Active Medications Acetaminophen (Tylenol -) 650 mg PO Q4H PRN PRN Reason: FEVER OR PAIN Albuterol/Ipratropium (Duoneb -) 1 amp NEB Q6H PRN PRN Reason: SHORTNESS OF BREATH Last Admin: 05/12/17 18:40 Dose: 1 amp Aspirin (Asa -) 81 mg PO DAILY [facility] Last Admin: 05/13/17 10:17 Dose: 81 mg Atorvastatin Calcium (Lipitor -) 10 mg PO HS [facility] Last Admin: 05/12/17 22:01 Dose: 10 mg Budesonide/Formoterol Fumarate (Symbicort 80/4.5mcg -) 2 puff IH BID [facility] Last Admin: 05/13/17 10:20 Dose: 2 inh Calcium/Vitamin D (Oscal 250 Mg+D -) 1 tab PO DAILY [facility] Last Admin: 05/13/17 10:16 Dose: 1 tab Carvedilol (Coreg -) 6.25 mg PO BID [facility] Last Admin: 05/13/17 10:17 Dose: 6.25 mg Cholecalciferol (Vitamin D3 -) 1,000 unit PO DAILY [facility] Last Admin: 05/13/17 10:17 Dose: 1,000 unit Latanoprost (Xalatan 0.005% Eye Drops -) 1 drop OU HS [facility] Last Admin: 05/12/17 22:01 Dose: 1 drop Levothyroxine Sodium (Synthroid -) 25 mcg PO AM [facility] Last Admin: 05/13/17 06:15 Dose: 25 mcg Losartan Potassium (Cozaar -) 50 mg PO DAILY [facility] Last Admin: 05/13/17 10:18 Dose: 50 mg Meclizine HCl (Antivert -) 12.5 mg PO Q6HPO [facility] Last Admin: 05/13/17 06:15 Dose: 12.5 mg Metformin HCl (Glucophage -) 500 mg PO TIDAC [facility] Last Admin: 05/13/17 10:16 Dose: 500 mg Non-Formulary Medication ([place]-3 Fatty Acids [Fish Oil]) 1,200 mg PO BID [facility] Sertraline HCl (Zoloft -) 25 mg PO HS [facility] Last Admin: 05/12/17 22:01 Dose: 25 mg Sitagliptin Phosphate (Januvia -) 100 mg PO AM [facility] Last Admin: 05/13/17 06:15 Dose: 100 mg - Objective Vital Signs: Vital Signs Temperature 36.5 C 05/13/17 05:00 Pulse Rate 66 05/13/17 05:00 Respiratory Rate 18 05/13/17 05:00 Blood Pressure 100/49 05/13/17 05:00 O2 Sat by Pulse Oximetry (%) 98 05/13/17 01:00 Constitutional: Yes: Well Nourished, No Distress, Calm Cardiovascular: Yes: Regular Rate and Rhythm, Murmur. No: Gallop, Rub Respiratory: Yes: Regular, CTA Bilaterally. No: Rales, Rhonchi, Wheezes Gastrointestinal: Yes: Normal Bowel Sounds, Soft. No: Distention, Tenderness Extremities: Yes: WNL Edema: No Labs: CBC, BMP 05/12/17 05:10 05/12/17 05:10 Problem List - Problems (1) Vertigo Code(s): R42 - DIZZINESS AND GIDDINESS (2) CAD (coronary artery disease) Code(s): I25.10 - ATHSCL HEART DISEASE OF [place] CORONARY ARTERY W/O ANG PCTRS Qualifiers: Coronary Disease-Associated Artery/Lesion type: [place] artery [place] vs. transplanted heart: [place] heart Associated angina: without angina Qualified Code(s): I25.10 - Atherosclerotic heart disease of [place] coronary artery without angina pectoris (3) COPD (chronic obstructive pulmonary disease) Code(s): J44.9 - CHRONIC OBSTRUCTIVE PULMONARY DISEASE, UNSPECIFIED Qualifiers: COPD type: unspecified COPD Qualified Code(s): J44.9 - Chronic obstructive pulmonary disease, unspecified (4) Diabetes Code(s): E11.9 - TYPE 2 DIABETES MELLITUS WITHOUT COMPLICATIONS Qualifiers: Diabetes mellitus type: type 2 (5) HTN (hypertension) Code(s): I10 - ESSENTIAL (PRIMARY) HYPERTENSION Qualifiers: Hypertension type: essential hypertension Qualified Code(s): I10 - Essential (primary) hypertension (6) Hypothyroid Code(s): E03.9 - HYPOTHYROIDISM, UNSPECIFIED (7) Palpitations Code(s): R00.2 - PALPITATIONS (8) Mitral valve regurgitation Code(s): I34.0 - NONRHEUMATIC MITRAL (VALVE) INSUFFICIENCY Qualifiers: Cardiac valve disease etiology: nonrheumatic Qualified Code(s): I34.0 - Nonrheumatic mitral (valve) insufficiency Assessment/Plan (1) Vertigo Assessment/Plan: -continue meclizine -currently resolved Code(s): R42 - DIZZINESS AND GIDDINESS (2) CAD (coronary artery disease) Assessment/Plan: -quiescent -continue home regimen Code(s): I25.10 - ATHSCL HEART DISEASE OF [place] CORONARY ARTERY W/O ANG PCTRS Qualifiers: Coronary Disease-Associated Artery/Lesion type: [place] artery [place] vs. transplanted heart: [place] heart Associated angina: without angina Qualified Code(s): I25.10 - Atherosclerotic heart disease of [place] coronary artery without angina pectoris (3) COPD (chronic obstructive pulmonary disease) Assessment/Plan: -stable -not in exacerbation -continue advair -prn duonebs Code(s): J44.9 - CHRONIC OBSTRUCTIVE PULMONARY DISEASE, UNSPECIFIED Qualifiers: COPD type: unspecified COPD Qualified Code(s): J44.9 - Chronic obstructive pulmonary disease, unspecified (4) Diabetes Assessment/Plan: -diabetic diet -continue metformin and januvia Code(s): E11.9 - TYPE 2 DIABETES MELLITUS WITHOUT COMPLICATIONS Qualifiers: Diabetes mellitus type: type 2 (5) HTN (hypertension) Assessment/Plan: -patient says she is on diuretic but unsure -will continue losartan and coreg -suspect patient diuretic is lasix per cardiology note, however I will not start it secondary to hypotension Code(s): I10 - ESSENTIAL (PRIMARY) HYPERTENSION (6) Hypothyroid Assessment/Plan: -TFTs normal Code(s): E03.9 - HYPOTHYROIDISM, UNSPECIFIED (7) Palpitations Assessment/Plan: -continue telemetry Code(s): R00.2 - PALPITATIONS (8) Mitral valve regurgitation -patient with history of mitral regurgitation -DON reviewed -cardiology to comment on next step -possible d/c home today pending their recommendations
--- NOTE | 2017-05-13 12:55 | PN ---
Progress Note, Physician History of Present Illness: Dyspnea on exertion improved. - Current Medication List Current Medications: Active Medications Acetaminophen (Tylenol -) 650 mg PO Q4H PRN PRN Reason: FEVER OR PAIN Albuterol/Ipratropium (Duoneb -) 1 amp NEB Q6H PRN PRN Reason: SHORTNESS OF BREATH Last Admin: 05/12/17 18:40 Dose: 1 amp Aspirin (Asa -) 81 mg PO DAILY [facility] Last Admin: 05/13/17 10:17 Dose: 81 mg Atorvastatin Calcium (Lipitor -) 10 mg PO HS [facility] Last Admin: 05/12/17 22:01 Dose: 10 mg Budesonide/Formoterol Fumarate (Symbicort 80/4.5mcg -) 2 puff IH BID [facility] Last Admin: 05/13/17 10:20 Dose: 2 inh Calcium/Vitamin D (Oscal 250 Mg+D -) 1 tab PO DAILY [facility] Last Admin: 05/13/17 10:16 Dose: 1 tab Carvedilol (Coreg -) 6.25 mg PO BID [facility] Last Admin: 05/13/17 10:17 Dose: 6.25 mg Cholecalciferol (Vitamin D3 -) 1,000 unit PO DAILY [facility] Last Admin: 05/13/17 10:17 Dose: 1,000 unit Latanoprost (Xalatan 0.005% Eye Drops -) 1 drop OU HS [facility] Last Admin: 05/12/17 22:01 Dose: 1 drop Levothyroxine Sodium (Synthroid -) 25 mcg PO AM [facility] Last Admin: 05/13/17 06:15 Dose: 25 mcg Losartan Potassium (Cozaar -) 50 mg PO DAILY [facility] Last Admin: 05/13/17 10:18 Dose: 50 mg Meclizine HCl (Antivert -) 12.5 mg PO Q6HPO [facility] Last Admin: 05/13/17 12:03 Dose: 12.5 mg Metformin HCl (Glucophage -) 500 mg PO TIDAC [facility] Last Admin: 05/13/17 10:16 Dose: 500 mg Non-Formulary Medication ([place]-3 Fatty Acids [Fish Oil]) 1,200 mg PO BID [facility] Sertraline HCl (Zoloft -) 25 mg PO HS [facility] Last Admin: 05/12/17 22:01 Dose: 25 mg Sitagliptin Phosphate (Januvia -) 100 mg PO AM [facility] Last Admin: 05/13/17 06:15 Dose: 100 mg - Objective Vital Signs: Vital Signs Temperature 98.4 F 05/13/17 09:00 Pulse Rate 71 05/13/17 09:00 Respiratory Rate 18 05/13/17 09:00 Blood Pressure 107/56 05/13/17 09:00 O2 Sat by Pulse Oximetry (%) 96 05/13/17 09:00 Constitutional: Yes: No Distress, Calm, Thin Neck: Yes: Supple Cardiovascular: Yes: Regular Rate and Rhythm, Murmur (2/6 SM) Respiratory: Yes: Regular, Diminished Gastrointestinal: Yes: Normal Bowel Sounds, Soft Edema: No Labs: CBC, BMP 05/12/17 05:10 05/12/17 05:10 Problem List - Problems (1) Mitral valve regurgitation Code(s): I34.0 - NONRHEUMATIC MITRAL (VALVE) INSUFFICIENCY Qualifiers: Cardiac valve disease etiology: nonrheumatic Qualified Code(s): I34.0 - Nonrheumatic mitral (valve) insufficiency (2) S/P TAVR (transcatheter aortic valve replacement) Code(s): Z95.2 - PRESENCE OF PROSTHETIC HEART VALVE (3) Acute on chronic diastolic (congestive) heart failure Code(s): I50.33 - ACUTE ON CHRONIC DIASTOLIC (CONGESTIVE) HEART FAILURE (4) Aortic stenosis Code(s): I35.0 - NONRHEUMATIC AORTIC (VALVE) STENOSIS Qualifiers: Cardiac valve disease etiology: nonrheumatic Qualified Code(s): I35.0 - Nonrheumatic aortic (valve) stenosis (5) CAD (coronary artery disease) Code(s): I25.10 - ATHSCL HEART DISEASE OF [place] CORONARY ARTERY W/O ANG PCTRS Qualifiers: Coronary Disease-Associated Artery/Lesion type: [place] artery [place] vs. transplanted heart: [place] heart Associated angina: without angina Qualified Code(s): I25.10 - Atherosclerotic heart disease of [place] coronary artery without angina pectoris (6) COPD (chronic obstructive pulmonary disease) Code(s): J44.9 - CHRONIC OBSTRUCTIVE PULMONARY DISEASE, UNSPECIFIED Qualifiers: COPD type: unspecified COPD Qualified Code(s): J44.9 - Chronic obstructive pulmonary disease, unspecified (7) HTN (hypertension) Code(s): I10 - ESSENTIAL (PRIMARY) HYPERTENSION Qualifiers: Hypertension type: essential hypertension Qualified Code(s): I10 - Essential (primary) hypertension (8) Palpitations Code(s): R00.2 - PALPITATIONS (9) Pulmonary hypertension Code(s): I27.2 - OTHER SECONDARY PULMONARY HYPERTENSION * DO NOT USE * (10) Shortness of breath Code(s): R06.02 - SHORTNESS OF BREATH Assessment/Plan 05/12/2017 DON: Normal LV size and fxn, mild MV prolapse with severe eccentric MR, bioAVR, mild LAE 1. Dyspnea referable subacute mitral valve regurgitation etiology 2. Aortic valve disease critical aortic valve stenosis post transcutaneous aortic valve replacement TAVR (23 mm Qian 3 Trans-catheter Tissue Valve) 3. Coronary artery disease 4. Diastolic left ventricular dysfunction with acute on chronic class I-II [place] [employer] classification left ventricular failure, currently compensated/euvolemic 5. Tricuspid valve regurgitation 6. HTN/HCVD 7. NIDDM 8. Hypercholesterolemia 9. History of retinal hemorrhages 10. Carotid stenosis 11. Hypothyroidism 12. Chronic obstructive pulmonary disease 13. History gastro-esophageal reflux disease 14. History of gastro-intestinal bleed 15. History of diverticular disease 16. 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 History of degenerative joint disease PLAN: 1. Add Aldactone 25 qd as hemodynamics tolerate 2. Continue Coreg 6.25 bid and Cozaar 50 qd 3. Continue Lipitor 10 qhs 4. Continue ASA 81 qd 5. D/c planning with f/u in office to discuss transmitral valve repair options, CD of DON sent to [place] for review.
[2017-05-13 15:05] VITALS: TEMP 98.3
--- NOTE | 2017-05-13 15:50 | DS ---
Physical Examination Vital Signs: Vital Signs Temperature 36.8 C 05/13/17 14:00 Pulse Rate 73 05/13/17 14:00 Respiratory Rate 18 05/13/17 09:00 Blood Pressure 91/47 05/13/17 14:00 O2 Sat by Pulse Oximetry (%) 96 05/13/17 09:00 Labs: CBC, BMP 05/12/17 05:10 05/12/17 05:10 Discharge Summary Reason For Visit: PALPITATIONS; WEAKNESS Current Active Problems Hypothyroid (Acute) Mitral valve regurgitation (Acute) S/P TAVR (transcatheter aortic valve replacement) (Acute) Vertigo (Acute) Weakness (Acute) Hospital Course: Please refer to progress note written today for physical exam and problem list but in short Ms Valadez is a pleasant 81 year old female who comes in with symptomatic mitral regurgitation. She has been having weakness, dyspnea on exertion, and vertigo for the past 3 months, however it has been steadily increasing. She was instructed to come to the ER and was admitted under observation. She had CT head without contrast since she was complaining of vertigo, this was negative. She was started on meclizine and it resolved. However she was also having MALONEY. She was seen by cardiology and underwent DON. She has severe mitral regurgitation. She was started on aldactone and is safe for discharge. She will follow up with cardiology to discuss surgical options for repair. 35 minutes spent in preparation of this discharge Condition: Good - Instructions Diet, Activity, Other Instructions: resume previous diet and activity Referrals: Kezia Benz MD [Staff Physician] - Jorje Tom MD [Primary Care Provider] - Disposition: HOME - Home Medications Comprehensive Discharge Medication List: Ambulatory Orders Losartan Potassium [Cozaar] 50 mg PO DAILY 12/18/14 Metformin HCl [Glucophage -] 500 mg PO TID 12/18/14 Sitagliptin Phosphate [Januvia] 100 mg PO DAILY 12/18/14 Atorvastatin Ca [Lipitor] 10 mg PO HS #1 tablet 12/22/14 Cholecalciferol (Vitamin D3) [Vitamin D3 -] 1,000 unit PO DAILY 03/10/16 Calcium Carb/Vitamin D3/Vit K1 [Citracal Soft Chew] 1 each PO DAILY 04/04/16 Fluticasone/Salmeterol [Advair 250-50 Diskus] 1 each IH BID 04/04/16 Ipratropium/Albuterol Sulfate [Combivent Respimat Inhal [place]] 4 gm IH QID PRN # 1 aer.w.adap 04/08/16 Latanoprost 0.005% Eye Drops [Xalatan 0.005% Eye Drops -] 1 drop OU HS 07/25/16 Aspirin [ASA -] 81 mg PO DAILY tab.chew 07/26/16 Ascorbic Acid [Vitamin C] 500 mg PO DAILY 05/10/17 B12/Levomefolate Calcium/B-6 [Folbic Rf Tablet] 1 each PO DAILY 05/10/17 Levothyroxine [Synthroid -] 0.025 mcg PO DAILY 05/10/17 Nitroglycerin 0.4 mg SL PRN 05/10/17 [place]-3S/Dha/Epa/Fish Oil [Fish Oil 1,200 mg Softgel] 1 cap PO DAILY 05/10/17 Sertraline HCl [Zoloft] 25 mg PO HS 05/10/17 Carvedilol [Coreg -] 6.25 mg PO BID #60 tablet 05/13/17 Meclizine HCl [Antivert -] 12.5 mg PO Q6HPO PRN #30 tablet 05/13/17 Spironolactone [Aldactone] 25 mg PO DAILY #30 tablet 05/13/17
[2017-05-13 16:36] VITALS: BP 101/51; PULSE 71
== END 2017-05-13 17:11 | disposition home health service (06) ==
LOC: JER 11:06 → JERBED 17:23 → INTOOBSV 17:23 → J4W 17:23 → UNDOADMOB 17:23 → J4W 20:42 → JERBED 20:42
PROVIDERS: ADMIT Internal Medicine; ATTEND Internal Medicine
PROC: 3E0F7GC Introduction of Other Therapeutic Substance into Respiratory Tract, Via Natural or Artificial Opening (ICD-10-PCS; principal; 2017-05-10)
PROC: 3E0F7GC Introduction of Other Therapeutic Substance into Respiratory Tract, Via Natural or Artificial Opening (ICD-10-PCS; 2017-05-10)
PROC: B24BZZ4 Ultrasonography of Heart with Aorta, Transesophageal (ICD-10-PCS; 2017-05-13)
DX: R53.1 Weakness (principal); R00.2 Palpitations; I25.10 Atherosclerotic heart disease of native coronary artery without angina pectoris; I35.0 Nonrheumatic aortic (valve) stenosis; I11.0 Hypertensive heart disease with heart failure; I50.33 Acute on chronic diastolic (congestive) heart failure; I34.0 Nonrheumatic mitral (valve) insufficiency; I07.1 Rheumatic tricuspid insufficiency; I27.20 Pulmonary hypertension, unspecified; J43.8 Other emphysema; J45.909 Unspecified asthma, uncomplicated; E11.9 Type 2 diabetes mellitus without complications; K21.9 Gastro-esophageal reflux disease without esophagitis; E78.5 Hyperlipidemia, unspecified; E03.9 Hypothyroidism, unspecified; K76.0 Fatty (change of) liver, not elsewhere classified; F32.9 Major depressive disorder, single episode, unspecified; D64.9 Anemia, unspecified; Z79.82 Long term (current) use of aspirin; Z79.84 Long term (current) use of oral hypoglycemic drugs; Z95.2 Presence of prosthetic heart valve; Z88.2 Allergy status to sulfonamides; Z88.1 Allergy status to other antibiotic agents; M19.90 Unspecified osteoarthritis, unspecified site; Z90.89 Acquired absence of other organs
CPT/HCPCS: 94640; C8925; 36415; 70450-TC; 71010-TC; 80048; 80053; 83735; 83880; 84100; 84439; 84443; 84484; 85025; 93005; 93010; 93306-TC; 93312; 93325; 97116-GP; 97161-GP; 99283-25; G0378

== ENCOUNTER 2017-08-16 11:28 | Inpatient (IN) | payer OTHER ==
--- NOTE | 2017-08-16 11:40 | PDOC ---
History of Present Illness <Mary Corona - Last Filed: 08/16/17 15:03> - General History Source: Patient Exam Limitations: No Limitations - History of Present Illness Initial Comments: 08/16/17 16:11 The patient is an 81-year-old female with a history of diabetes, hypertension, hyperlipidemia, aortic stenosis status post TAVR (1 year ago), who presents with 3 days of generalized weakness. The patient was last seen on 06/18/17 and had an echo performed. At that time she had no difficulty ambulating. Now, the patient states that she is unable to get out of bed due to her weakness. The patient has been tolerating foods but has no appetite. The patient denies any fever, chills, sneezing, body aches, or rhinorrhea. She denies any nausea, vomiting, diarrhea, constipation, or abdominal pain. She denies any chest pain or shortness of breath. She denies any focal weakness/numbness or headache. She denies any dysuria hematuria, frequency, urgency, or hesitancy. Allergies: Quinine, Sulfa Surgical Hx: appendectomy,hernia repair, aortic valve replacement Social Hx: The patient denies any tobacco, alcohol, or drug use. PCP: N/A <Mariya Sahni - Last Filed: 08/16/17 16:18> - General Chief Complaint: Weakness Stated Complaint: WEAKNESS Time Seen by Provider: 08/16/17 11:40 Past History - Past Medical History Anemia: Yes Asthma: Yes Cancer: No Cardiac Disorders: Yes (ashd) CVA: No COPD: Yes (emphysema) CHF: No Dementia: No Diabetes: (NIDDM) GI Disorders: Yes (Diverticulosis,gerd, POLYPS) Disorders: No HTN: No Hypercholesterolemia: Yes (takes lipitor) Liver Disease: (FATTY LIVER) Psychiatric Problems: Yes (derpression) Seizures: No Thyroid Disease: Yes - Surgical History Abdominal Surgery: Yes (appendectomy,hernia repair) Appendectomy: Yes Cardiac Surgery: Yes (aortic vaulve replacement) Cholecystectomy: No Lung Surgery: No Neurologic Surgery: No Orthopedic Surgery: No - Suicide/Smoking/Psychosocial Hx Smoking Status: Yes (1972) Smoking History: Never smoked Have you smoked in the past 12 months: No Number of Cigarettes Smoked Daily: 0 If you are a former smoker, when did you quit?: 1972 'Breaking Loose' booklet given: 11/23/15 Hx Alcohol Use: No Drug/Substance Use Hx: No Substance Use Type: None Hx Substance Use Treatment: No <Mayr Corona - Last Filed: 08/16/17 15:03> <Mariya Sahni - Last Filed: 08/16/17 16:18> - Past Medical History Allergies/Adverse Reactions: Allergies Allergy/AdvReac Type Severity Reaction Status Date / Time quinine [Quinine] Allergy Mild Rash Verified 08/16/17 11:32 Sulfa (Sulfonamide Allergy Mild Rash Verified 08/16/17 11:32 Antibiotics) [Sulfa(Sulfonamide Antibiotics)] Home Medications: Ambulatory Orders Losartan Potassium [Cozaar] 50 mg PO DAILY 12/18/14 Sitagliptin Phosphate [Januvia] 100 mg PO DAILY 12/18/14 metFORMIN HCL [Glucophage -] 500 mg PO TID 12/18/14 Atorvastatin Ca [Lipitor] 10 mg PO HS #1 tablet 12/22/14 Cholecalciferol (Vitamin D3) [Vitamin D3 -] 1,000 unit PO DAILY 03/10/16 Calcium Carb/Vitamin D3/Vit K1 [Citracal Soft Chew] 1 each PO DAILY 04/04/16 Fluticasone/Salmeterol [Advair 250-50 Diskus] 1 each IH BID 04/04/16 Ipratropium/Albuterol Sulfate [Combivent Respimat Inhal [place]] 4 gm IH QID PRN # 1 aer.w.adap 04/08/16 Latanoprost 0.005% Eye Drops [Xalatan 0.005% Eye Drops -] 1 drop OU HS 07/25/16 Aspirin [ASA -] 81 mg PO DAILY tab.chew 07/26/16 Ascorbic Acid [Vitamin C] 500 mg PO DAILY 05/10/17 B12/Levomefolate Calcium/B-6 [Folbic Rf Tablet] 1 each PO DAILY 05/10/17 Levothyroxine [Synthroid -] 0.025 mcg PO DAILY 05/10/17 Nitroglycerin 0.4 mg SL PRN 05/10/17 [place]-3S/Dha/Epa/Fish Oil [Fish Oil 1,200 mg Softgel] 1 cap PO DAILY 05/10/17 Sertraline HCl [Zoloft] 25 mg PO HS 05/10/17 Carvedilol [Coreg -] 6.25 mg PO BID #60 tablet 05/13/17 Meclizine HCl [Antivert -] 12.5 mg PO Q6HPO PRN #30 tablet 05/13/17 Spironolactone [Aldactone] 25 mg PO DAILY #30 tablet 05/13/17 Review of Systems - Review of Systems Able to Perform ROS?: Yes Comments:: 08/16/17 16:13 GENERAL/CONSTITUTIONAL: Yes: generalized weakness, loss of appetite. No: fever, chills. HEAD, EYES, EARS, NOSE AND THROAT: No: change in vision, ear pain, discharge, sore throat, throat swelling. CARDIOVASCULAR: No: chest pain, lightheadedness, palpitations, syncope RESPIRATORY: No: cough, shortness of breath, wheezing, hemoptysis, stridor. GASTROINTESTINAL: No: nausea, vomiting, abdominal cramping, diarrhea, rectal bleeding, constipation. GENITOURINARY: No: dysuria, hematuria, frequency, urgency, flank pain. MUSCULOSKELETAL: No: back pain, neck pain, joint pain, muscle swelling or pain SKIN AND BREASTS: No: lesions, pallor, rash or easy bruising. NEUROLOGIC: No: headache, vertigo, paresthesias, weakness ENDOCRINE: No: unexplained weight gain or loss HEMATOLOGIC/LYMPHATIC: No: anemia, easy bleeding, swelling nodes <Mariya Sahni - Last Filed: 08/16/17 16:18> *Physical Exam - Vital Signs Last Vital Signs Temp Pulse Resp BP Pulse Ox 97.4 F L 87 20 97/50 99 08/16/17 12:00 08/16/17 14:10 08/16/17 14:10 08/16/17 14:10 08/16/17 14:10 - Physical Exam Comments: 08/16/17 16:15 GENERAL: The patient is in no acute distress. Answers questions appropriately HEAD: Normal with no signs of trauma. EYES: PERRLA, EOMI, sclera anicteric, conjunctiva clear. ENT: Ears normal, nares patent, oropharynx clear without exudates. Moist mucous membranes. NECK: Normal range of motion, supple without lymphadenopathy, JVD, or masses. LUNGS: Breath sounds equal, clear to auscultation bilaterally. No wheezes, and no crackles. HEART: (+)Harsh murmur throughout the pericardium. Regular rate and rhythm, rub or gallop. ABDOMEN: Soft, nontender, normoactive bowel sounds. No guarding, no rebound. EXTREMITIES: Moves all extremities against gravity with no difficulty, no edema. No clubbing or cyanosis. No erythema, or tenderness. NEUROLOGICAL: Cranial nerves II through XII grossly intact. Normal speech. No focal neurological deficits. MUSCULOSKELETAL: Back non-tender to palpation, no CVA tenderness SKIN: Warm, Dry, normal turgor, no rashes or lesions noted. <Mariya Sahni - Last Filed: 08/16/17 16:18> ED Treatment Course - LABORATORY CBC & Chemistry Diagram: 08/16/17 13:43 08/16/17 13:43 <Mary Corona - Last Filed: 08/16/17 15:03> - LABORATORY CBC & Chemistry Diagram: 08/16/17 13:43 08/16/17 13:43 - ADDITIONAL ORDERS Additional order review: Laboratory Results 08/16/17 08/16/17 08/16/17 14:57 13:43 12:21 Sodium 138 Potassium 5.1 Chloride 102 Carbon Dioxide 27 Anion Gap 9 BUN 57 H Creatinine 1.2 H Creat Clearance w eGFR 43.01 Random Glucose 152 H Calcium 8.8 Total Bilirubin 0.3 D AST 12 L ALT 13 Alkaline Phosphatase 38 L Creatine Kinase 40 Troponin I < 0.02 B-Natriuretic Peptide 376.95 Total Protein 6.4 Albumin 3.5 Stool Occult Blood Positive Blood Type A POSITIVE Antibody Screen Negative Crossmatch See Detail 08/16/17 13:43 RBC 2.01 L D MCV 93.3 MCHC 33.8 RDW 16.0 H MPV 8.0 Neutrophils % 72.1 D Lymphocytes % 17.3 D Monocytes % 9.3 Eosinophils % 0.8 Basophils % 0.5 - Medications Given in the ED: ED Medications Discontinued Medications Generic Name Dose Route Start Last Admin Trade Name Freq PRN Reason Stop Dose Admin Sodium Chloride 250 mls @ 250 mls/hr 08/16/17 14:11 08/16/17 15:20 Normal Saline - IV 08/16/17 15:10 250 mls/hr ASDIR STA Administration Pantoprazole Sodium 40 mg 08/16/17 15:12 08/16/17 16:03 Protonix Iv IVPUSH 08/16/17 15:13 40 mg ONCE ONE Administration <BoraMariya - Last Filed: 08/16/17 16:18> Medical Decision Making - Medical Decision Making 08/16/17 15:04 Ms Valadez is an 81-year-old female with a history of diabetes, hypertension, hyperlipidemia, aortic stenosis status post TAVR Patient presents emergency department with a complaint of generalized weakness for the past 3 days. No fevers, chills, body aches, sneezing, rhinorrhea. Patient denies chest pain, chest tightness. Patient denies shortness of breath as a continued infected or weakness. Patient denies abdominal pain, distention. She notes no nausea, vomiting, diarrhea. She notes no change in her stool color or consistency. Patient has noted decreased appetite, but she is however able to tolerate foods On examination: She is awake, alert, interactive with examiner. Patient is pale appearing, with pill conjunctiva. Heart is regular with a harsh systolic murmur throughout the precordium Lungs are clear to auscultation bilaterally No abdominal tenderness to palpation Rectal examination reveals very dark colored stool, no maroon colored stool, No lower extremity edema Differential diagnosis includes but is not limited to: CHF, ACS, MR, Anemia, electrolyte abnormality, dehydration Will do: Labs EKG CXR EKG: Sinus rhythm with a rate of 79 bpm, left axis deviation, incomplete right bundle branch block, intervals are normal with the exception of the DC interval which is prolonged at 214ms, no ST elevations or depressions, T waves are upright, LVH Laboratory Tests 05/12/17 05/12/17 08/16/17 05:10 05:10 13:43 WBC 8.6 9.5 Hgb 11.0 6.3 L* D Hct 32.5 18.7 L D Plt Count 254 227 Sodium 137 Potassium 4.3 Chloride 100 Carbon Dioxide 29 Anion Gap BUN 29 H D Creatinine 0.9 Creatine Kinase Troponin I B-Natriuretic Peptide 08/16/17 13:43 WBC Hgb Hct Plt Count Sodium 138 Potassium 5.1 Chloride 102 Carbon Dioxide 27 Anion Gap 9 BUN 57 H Creatinine 1.2 H Creatine Kinase 40 Troponin I < 0.02 B-Natriuretic Peptide 376.95 Chest x-ray: Cardiomegaly, no pleural effusions, no infiltrates 08/16/17 15:08 Patient's labs are concerning for an acute symptomatically anemia. Patient states she's had this before but as a child when she first started menstruating. Patient notes no rectal bleeding, she has not noticed her stool study melanotic. Rectal examination concerning for possible upper GI bleed. Will transfuse 2 units of packed red cells. Will give Protonix. Reviewed with Dr. Crawford He agrees with plan for admission Clinical impression:Symptomatic anemia, initial presentation <Mary Corona - Last Filed: 08/16/17 15:03> *DC/Admit/Observation/Transfer - Discharge Dispostion Admit: Yes <Mary Corona - Last Filed: 08/16/17 15:03> - Attestations Scribe Attestion: 08/16/17 16:18 Documentation prepared by Mariya Sahni, acting as medical equipment repair technician for Mary Corona MD. <Mariya Sahni - Last Filed: 08/16/17 16:18> Diagnosis at time of Disposition: Symptomatic anemia - Discharge Dispostion Condition at time of disposition: Stable
[2017-08-16] MEDS ORDERED: SODIUM CHLORIDE 250 ML IV STA (14:11)
[2017-08-16 14:15] LABS: BASO % 0.5 % (0-2.0); EOS % 0.8 % (0-4.5); HEMATOCRIT 18.7 % (32.4-45.2); LYMPH % 17.3 % (8-40); MCH 31.5 pg (25.7-33.7); MCHC 33.8 g/dl (32.0-36.0); MEAN CELL VOLUME 93.3 fl (80-96); MONO % 9.3 % (3.8-10.2); NEUT % 72.1 % (42.8-82.8); PLATELET COUNT 227 K/MM3 (134-434); RBC 2.01 M/mm3 (3.60-5.2); WHITE BLOOD COUNT 9.5 K/mm3 (4.0-10.0)
[2017-08-16 14:46] LABS: ALBUMIN 3.5 g/dl (3.4-5.0); ANION GAP 9 (8-16); BLOOD UREA NITROGEN 57 mg/dL (7-18); CALCIUM 8.8 mg/dL (8.5-10.1); CHLORIDE 102 mmol/L (98-107); CO2 27 mmol/L (21-32); CREATININE 1.2 mg/dL (0.55-1.02); GLUCOSE,RANDOM 152 mg/dL (74-106); INR 1.01 (0.82-1.09); POTASSIUM 5.1 mmol/L (3.5-5.1); PROTHROMBIN TIME (PATIENT) 11.4 SEC (9.98-11.88); SGOT/AST 12 U/L (15-37); SGPT/ALT 13 U/L (12-78); SODIUM 138 mmol/L (136-145)
[2017-08-16 14:47] LABS: HEMOGLOBIN 6.3 GM/dL (10.7-15.3)
[2017-08-16 14:53] LABS: ALK PHOS 38 U/L (45-117); BILIRUBIN,TOTAL 0.3 mg/dL (0.2-1.0); N-TERMINAL BNP 376.95 pg/ml (5-450); TOT PROT 6.4 g/dl (6.4-8.2)
[2017-08-16] MEDS ORDERED: PANTOPRAZOLE SODIUM 40 MG VIAL IVPUSH ONE (15:12)
[2017-08-16] MEDS ORDERED: PANTOPRAZOLE SODIUM 40 MG VIAL ONE (16:05)
[2017-08-16] MEDS ORDERED: PATIENT'S OWN MEDICATION (NON-FORMULARY) (Ipratropium/Albuterol Sulfate [Combivent Respima IH PRN (16:07)
[2017-08-16] MEDS ORDERED: ACETAMINOPHEN 325 MG TABLET (FP) PO PRN (16:12)
[2017-08-16] MEDS ORDERED: NITROGLYCERIN SUBLINGUAL 1/150 0.4 MG TAB SL PRN (16:15)
[2017-08-16] MEDS ORDERED: PANTOPRAZOLE SODIUM 40 MG VIAL IVPUSH SCH (16:30)
--- NOTE | 2017-08-16 16:30 | HP ---
Admitting History and Physical - Primary Care Physician PCP: Jorje Tom - Admission Chief Complaint: I feel weak History of Present Illness: Ms Valadez is a very pleasant 81 year old female who comes in with a 1 week history of weakness and MALONEY. She states she was being worked up for mitral valve replacement and has finished the entire work up. She was holding on going forward with a clip vs mitral valve replacement because recently she has been feeling so well. However over the past week she has felt very fatigued and having a difficult time staying awake. She says this has been progressing. She also has lightheadedness on standing but has not passed out. She has shortness of breath with minimal movement. Her appetite is decreased. She is having nausea but has still been eating her normal amount. She threw up a small amount once, however she says her eyesight is poor and could not see if it were blood. She also cannot tell if her stool is darker than normal, however she says it is regular. She denies fevers, chills, chest pain, abdominal pain, difficulty or pain on urination, or swelling. She says the weakness became so severe she came in for further evaluation. History Source: Patient Limitations to Obtaining History: No Limitations - Past Medical History Cardiovascular: Yes: Aortic Stenosis, HTN, Hyperlipdemia Pulmonary: Yes: COPD Musculoskeletal: Yes: Osteoarthritis Endocrine: Yes: Diabetes Mellitus, Hypothyroidism - Past Surgical History Past Surgical History: Yes: Appendectomy, Hernia Repair, Tonsillectomy, Valve Replacement - Smoking History Smoking history: Never smoked Have you smoked in the past 12 months: No Aproximately how many cigarettes per day: 0 If you are a former smoker, when did you quit?: 1972 - Alcohol/Substance Use Hx Alcohol Use: No History of Substance Use: reports: None - Social History ADL: Independent History of Recent Travel: No Home Medications - Allergies Allergies/Adverse Reactions: Allergies Allergy/AdvReac Type Severity Reaction Status Date / Time quinine [Quinine] Allergy Mild Rash Verified 08/16/17 11:32 Sulfa (Sulfonamide Allergy Mild Rash Verified 08/16/17 11:32 Antibiotics) [Sulfa(Sulfonamide Antibiotics)] - Home Medications Home Medications: Ambulatory Orders Losartan Potassium [Cozaar] 50 mg PO DAILY 12/18/14 Sitagliptin Phosphate [Januvia] 100 mg PO DAILY 12/18/14 metFORMIN HCL [Glucophage -] 500 mg PO TID 12/18/14 Atorvastatin Ca [Lipitor] 10 mg PO HS #1 tablet 12/22/14 Cholecalciferol (Vitamin D3) [Vitamin D3 -] 1,000 unit PO DAILY 03/10/16 Calcium Carb/Vitamin D3/Vit K1 [Citracal Soft Chew] 1 each PO DAILY 04/04/16 Fluticasone/Salmeterol [Advair 250-50 Diskus] 1 each IH BID 04/04/16 Ipratropium/Albuterol Sulfate [Combivent Respimat Inhal [place]] 4 gm IH QID PRN # 1 aer.w.adap 04/08/16 Latanoprost 0.005% Eye Drops [Xalatan 0.005% Eye Drops -] 1 drop OU HS 07/25/16 Aspirin [ASA -] 81 mg PO DAILY tab.chew 07/26/16 Ascorbic Acid [Vitamin C] 500 mg PO DAILY 05/10/17 B12/Levomefolate Calcium/B-6 [Folbic Rf Tablet] 1 each PO DAILY 05/10/17 Levothyroxine [Synthroid -] 0.025 mcg PO DAILY 05/10/17 Nitroglycerin 0.4 mg SL PRN 05/10/17 [place]-3S/Dha/Epa/Fish Oil [Fish Oil 1,200 mg Softgel] 1 cap PO DAILY 05/10/17 Sertraline HCl [Zoloft] 25 mg PO HS 05/10/17 Carvedilol [Coreg -] 6.25 mg PO BID #60 tablet 05/13/17 Meclizine HCl [Antivert -] 12.5 mg PO Q6HPO PRN #30 tablet 05/13/17 Spironolactone [Aldactone] 25 mg PO DAILY #30 tablet 05/13/17 Family Disease History - Family Disease History Family Disease History: Heart Disease: Mother, Son, Other: Father (emphysema, PE ) Review of Systems Findings/Remarks: Full review of systems obtained, as per HPI and otherwise negative. Physical Examination Vital Signs: Vital Signs Temperature 36.6 C 08/16/17 16:04 Pulse Rate 80 08/16/17 16:04 Respiratory Rate 20 08/16/17 16:04 Blood Pressure 98/48 08/16/17 16:04 O2 Sat by Pulse Oximetry (%) 100 08/16/17 16:04 Constitutional: Yes: Well Nourished, No Distress, Calm, Pallor Eyes: Yes: Conjunctiva Clear, EOM Intact, PERRL HENT: Yes: Atraumatic, Normocephalic Cardiovascular: Yes: Regular Rate and Rhythm, Murmur. No: Gallop, Rub Respiratory: Yes: Regular, CTA Bilaterally. No: Rales, Rhonchi, Wheezes Gastrointestinal: Yes: Normal Bowel Sounds, Soft. No: Distention, Tenderness Extremities: Yes: WNL Edema: No Labs: CBC, BMP 08/16/17 13:43 08/16/17 13:43 Imaging - Results Chest X-ray: Report Reviewed, Image Reviewed Problem List - Problems (1) GI bleed Assessment/Plan: -patient presents with signs/symptoms most consistent with GI bleed -suspect UGIB considering uremia -admit to hospital -transfuse 2 units pRBCs -hold aspirin -will give lasix 40mg IV bid at this time to avoid fluid overload -case d/w Dr Blanca who will see in consultation Code(s): K92.2 - GASTROINTESTINAL HEMORRHAGE, UNSPECIFIED Qualifiers: GI bleed type/associated pathology: angiodysplasia of stomach and duodenum Qualified Code(s): K31.811 - Angiodysplasia of stomach and duodenum with bleeding (2) Symptomatic anemia Assessment/Plan: -acute blood loss anemia -transfuse -treat GI bleed as above Code(s): D64.9 - ANEMIA, UNSPECIFIED (3) Mitral valve regurgitation Assessment/Plan: -patient being worked up for possible valve replacement vs clip -at risk for fluid overload -give lasix between units -consult cardiology in anticipation of possible scopes Code(s): I34.0 - NONRHEUMATIC MITRAL (VALVE) INSUFFICIENCY Qualifiers: Cardiac valve disease etiology: nonrheumatic Qualified Code(s): I34.0 - Nonrheumatic mitral (valve) insufficiency (4) Diastolic CHF due to valvular disease Assessment/Plan: -transfusing currently -lasix between units -consult cardiology -not in exacerbation Code(s): I38 - ENDOCARDITIS, VALVE UNSPECIFIED; I50.30 - UNSPECIFIED DIASTOLIC ( CONGESTIVE) HEART FAILURE (5) CAD (coronary artery disease) Assessment/Plan: -holding aspirin secondary to GIB -quiescent -otherwise continue home regimen Code(s): I25.10 - ATHSCL HEART DISEASE OF [place] CORONARY ARTERY W/O ANG PCTRS Qualifiers: Coronary Disease-Associated Artery/Lesion type: [place] artery [place] vs. transplanted heart: [place] heart Associated angina: without angina Qualified Code(s): I25.10 - Atherosclerotic heart disease of [place] coronary artery without angina pectoris (6) COPD (chronic obstructive pulmonary disease) Assessment/Plan: -continue duonebs Code(s): J44.9 - CHRONIC OBSTRUCTIVE PULMONARY DISEASE, UNSPECIFIED Qualifiers: COPD type: unspecified COPD Qualified Code(s): J44.9 - Chronic obstructive pulmonary disease, unspecified (7) Diabetes Assessment/Plan: -FSBS and SSI -clear liquid diabetic diet, npo after MN -holding oral hypoglycemics until after GI bleed worked up Code(s): E11.9 - TYPE 2 DIABETES MELLITUS WITHOUT COMPLICATIONS Qualifiers: Diabetes mellitus type: type 2 (8) HTN (hypertension) Assessment/Plan: -currently hypotensive -continue regimen with hold parameters Code(s): I10 - ESSENTIAL (PRIMARY) HYPERTENSION Qualifiers: Hypertension type: essential hypertension Qualified Code(s): I10 - Essential (primary) hypertension (9) Hypothyroid Assessment/Plan: -continue synthroid Code(s): E03.9 - HYPOTHYROIDISM, UNSPECIFIED
[2017-08-16] MEDS: MAG HYDROX/AL HYDROX/SIMETH 30 ML UNIT-DOSE CUP PO SCH ×2 (17:00→23:40)
--- NOTE | 2017-08-16 17:50 | CON.GI ---
Consult Consult Specialty:: Gastroenterology Referred by:: Dr Ezekiel Crawford Reason for Consultation:: Anemia - History of Present Illness Chief Complaint: Progressive weakness and SOB History of Present Illness: 81F is admitted with progressive weakness and worsening SOB. She had TAVR about a year ago but now has significant mitral regurgitation. Was being evaluated for a new procedure that involved placing a clip vascularly but was cancelled when her dyspnea improved. She is now found to have a Hct of 18. Eyesight is too poor to see her stool color. Denies pungent foul smelling stool or hematemesis. No pain. I did an EGD on 12/20/14 which revealed a small sliding hiatal hernia but no other abnormalities. She takes aspirin daily. She has colonoscopies in 2014 and another on 03/10/16 to remove multiple adenomas including from the cecum and right colon. She has 7 polyps alone removed from the hepatic flexure and 5 from the cecum where saline submucosal injection and endoclipping was required following polypectomies. She has not responded to recalls form our office for surveillance as her cardiac issues have precluded undertaking such an exam. - History Source History Provided By: Patient, Medical Record Limitations to Obtaining History: No Limitations - Past Medical History Cardio/Vascular: Yes: Aortic Stenosis (resolved with TAVR), CHF (last DON had good systolic function, 2016), HTN, Hyperlipdemia, 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), Mitral Stenosis (probable MS) Pulmonary: Yes: COPD, Sleep Apnea Gastrointestinal: Yes: Diverticulosis, Hiatal Hernia, Other (multiple colon adenomas removed 2014, 2015, capsule endoscopy Dr Olvera 2015 unrevealing) Hepatobiliary: Yes: Cholelithiasis, Other (fatty liver) Renal/: Yes: Renal Calculi Reproductive: Yes: Fibroids Heme/Onc: Yes: Anemia Musculoskeletal: Yes: Osteoarthritis Endocrine: Yes: Diabetes Mellitus (with retinopathy), Hypothyroidism Additional Medical History: Legally blind with diabetic retinopathy, macular degeneration and glaucoma - Past Surgical History Past Surgical History: Yes: Appendectomy (ruptured), Cataract Removal, Colonoscopy, Hernia Repair, Tonsillectomy, Upper Endoscopy, Valve Replacement Additional Surgical History: Bladder lift. Multiple laser eye surgeries. TAVR - Alcohol/Substance Use Hx Alcohol Use: No History of Substance Use: reports: None - Smoking History Smoking history: Never smoked Have you smoked in the past 12 months: No Aproximately how many cigarettes per day: 0 If you are a former smoker, when did you quit?: 1972 - Social History ADL: Independent History of Recent Travel: No Home Medications - Allergies Allergies/Adverse Reactions: Allergies Allergy/AdvReac Type Severity Reaction Status Date / Time quinine [Quinine] Allergy Mild Rash Verified 08/16/17 11:32 Sulfa (Sulfonamide Allergy Mild Rash Verified 08/16/17 11:32 Antibiotics) [Sulfa(Sulfonamide Antibiotics)] - Home Medications Home Medications: Ambulatory Orders Losartan Potassium [Cozaar] 50 mg PO DAILY 12/18/14 Sitagliptin Phosphate [Januvia] 100 mg PO DAILY 12/18/14 metFORMIN HCL [Glucophage -] 500 mg PO TID 12/18/14 Atorvastatin Ca [Lipitor] 10 mg PO HS #1 tablet 12/22/14 Cholecalciferol (Vitamin D3) [Vitamin D3 -] 1,000 unit PO DAILY 03/10/16 Calcium Carb/Vitamin D3/Vit K1 [Citracal Soft Chew] 1 each PO DAILY 04/04/16 Fluticasone/Salmeterol [Advair 250-50 Diskus] 1 each IH BID 04/04/16 Ipratropium/Albuterol Sulfate [Combivent Respimat Inhal [place]] 4 gm IH QID PRN # 1 aer.w.adap 04/08/16 Latanoprost 0.005% Eye Drops [Xalatan 0.005% Eye Drops -] 1 drop OU HS 07/25/16 Aspirin [ASA -] 81 mg PO DAILY tab.chew 07/26/16 Ascorbic Acid [Vitamin C] 500 mg PO DAILY 05/10/17 B12/Levomefolate Calcium/B-6 [Folbic Rf Tablet] 1 each PO DAILY 05/10/17 Levothyroxine [Synthroid -] 0.025 mcg PO DAILY 05/10/17 Nitroglycerin 0.4 mg SL PRN 05/10/17 [place]-3S/Dha/Epa/Fish Oil [Fish Oil 1,200 mg Softgel] 1 cap PO DAILY 05/10/17 Sertraline HCl [Zoloft] 25 mg PO HS 05/10/17 Carvedilol [Coreg -] 6.25 mg PO BID #60 tablet 05/13/17 Meclizine HCl [Antivert -] 12.5 mg PO Q6HPO PRN #30 tablet 05/13/17 Spironolactone [Aldactone] 25 mg PO DAILY #30 tablet 05/13/17 Family Disease History - Family Disease History Family Disease History: Heart Disease: Mother ( 84 [place], had polio), Son ( multiple eye surgeries), Other: Father (emphysema, 64 of PE) Review of Systems - Review of Systems Constitutional: reports: Lethargy, Weakness Eyes: reports: Other (poor vision, cannot watch TV) HENT: reports: No Symptoms Neck: reports: No Symptoms Cardiovascular: reports: Shortness of Breath Respiratory: reports: Exercise Intolerance, SOB on Exertion Gastrointestinal: reports: Constipation Genitourinary: reports: No Symptoms Musculoskeletal: reports: Joint Pain Neurological: reports: No Symptoms Physical Exam-GI Vital Signs: Vital Signs Temperature 97.8 F 08/16/17 16:04 Pulse Rate 80 08/16/17 16:04 Respiratory Rate 20 08/16/17 16:04 Blood Pressure 98/48 08/16/17 16:04 O2 Sat by Pulse Oximetry (%) 100 08/16/17 16:04 CBC,CMP WBC 9.5 K/mm3 (4.0-10.0) 08/16/17 13:43 RBC 2.01 M/mm3 (3.60-5.2) L D 08/16/17 13:43 Hgb 6.3 GM/dL (10.7-15.3) L* D 08/16/17 13:43 Hct 18.7 % (32.4-45.2) L D 08/16/17 13:43 MCV 93.3 fl (80-96) 08/16/17 13:43 MCH 31.5 pg (25.7-33.7) 08/16/17 13:43 MCHC 33.8 g/dl (32.0-36.0) 08/16/17 13:43 RDW 16.0 % (11.6-15.6) H 08/16/17 13:43 Plt Count 227 K/MM3 (134-434) 08/16/17 13:43 MPV 8.0 fl (7.5-11.1) 08/16/17 13:43 Neutrophils % 72.1 % (42.8-82.8) D 08/16/17 13:43 Lymphocytes % 17.3 % (8-40) D 08/16/17 13:43 Monocytes % 9.3 % (3.8-10.2) 08/16/17 13:43 Eosinophils % 0.8 % (0-4.5) 08/16/17 13:43 Basophils % 0.5 % (0-2.0) 08/16/17 13:43 Sodium 138 mmol/L (136-145) 08/16/17 13:43 Potassium 5.1 mmol/L (3.5-5.1) 08/16/17 13:43 Chloride 102 mmol/L (98-107) 08/16/17 13:43 Carbon Dioxide 27 mmol/L (21-32) 08/16/17 13:43 Anion Gap 9 (8-16) 08/16/17 13:43 BUN 57 mg/dL (7-18) H 08/16/17 13:43 Creatinine 1.2 mg/dL (0.55-1.02) H 08/16/17 13:43 Creat Clearance w eGFR 43.01 (>60) 08/16/17 13:43 Random Glucose 152 mg/dL (74-106) H 08/16/17 13:43 Calcium 8.8 mg/dL (8.5-10.1) 08/16/17 13:43 Total Bilirubin 0.3 mg/dL (0.2-1.0) D 08/16/17 13:43 AST 12 U/L (15-37) L 08/16/17 13:43 ALT 13 U/L (12-78) 08/16/17 13:43 Alkaline Phosphatase 38 U/L (45-117) L 08/16/17 13:43 Creatine Kinase 40 IU/L (26-192) 08/16/17 13:43 Troponin I < 0.02 ng/ml (0.00-0.05) 08/16/17 13:43 B-Natriuretic Peptide 376.95 pg/ml (5-450) 08/16/17 13:43 Total Protein 6.4 g/dl (6.4-8.2) 08/16/17 13:43 Albumin 3.5 g/dl (3.4-5.0) 08/16/17 13:43 Current Medications Generic Name Dose Route Start Last Admin Trade Name Freq PRN Reason Stop Dose Admin Acetaminophen 650 mg 08/16/17 16:12 Tylenol - PO Q4H PRN PAIN LEVEL 1-5 Albuterol/Ipratropium 1 amp 08/16/17 20:00 Duoneb - NEB RQID [facility] Atorvastatin Calcium 10 mg 08/16/17 22:00 Lipitor - PO HS [facility] Budesonide/Formoterol Fumarate 2 puff 08/16/17 22:00 Symbicort 80/4.5mcg - IH BID [facility] Carvedilol 6.25 mg 08/16/17 22:00 Coreg - PO BID [facility] Cholecalciferol 1,000 unit 08/17/17 10:00 Vitamin D3 - PO DAILY [facility] Furosemide 20 mg 08/17/17 16:30 Lasix Injection - IVPUSH 08/17/17 16:31 ONCE ONE Insulin Aspart 1 vial 08/16/17 16:30 Novolog Vial Sliding Scale - SQ ACHS [facility] Protocol Latanoprost 1 drop 08/16/17 22:00 Xalatan 0.005% Eye Drops - OU [facility] Levothyroxine Sodium 25 mcg 08/17/17 07:00 Synthroid - PO DAILY@0700 [facility] Losartan Potassium 50 mg 08/17/17 10:00 Cozaar - PO DAILY [facility] Nitroglycerin 0.4 mg 08/16/17 16:15 Nitrostat - SL DAILY PRN SHORTNESS OF BREATH Mxwox-0-Fmri Ethyl Esters 2 gm 08/16/17 22:00 Lovaza - PO BID [facility] Pantoprazole Sodium 40 mg 08/16/17 16:30 08/16/17 16:43 Protonix Iv IVPUSH Not Given BIDLASIX [facility] Sertraline HCl 25 mg 08/16/17 22:00 Zoloft - PO [facility] Constitutional: Yes: Well Nourished, Calm, Other (pale) Eyes: Yes: Conjunctiva Clear HENT: Yes: Atraumatic Neck: Yes: Trachea Midline Cardiovascular: Yes: Regular Rate and Rhythm, Murmur (3/6 early systolic at base radiating into carotids bilaterally 3/6 holosystolic blowing murmur at apex ) Respiratory: Yes: CTA Bilaterally Gastrointestinal Inspection: Yes: Distention (obese), Scars (RLQ and umbilical incisions) ...Auscultate: Yes: Normoactive Bowel Sounds ...Palpate: Yes: Soft, Other (nontender) ...Rectal Exam: Yes: Guaiac Positive (black loose strongly guaiac positive stool ) Edema: LLE: 1+, RLE: 1+ Neurological: Yes: Alert Labs: CBC, BMP 08/16/17 13:43 08/16/17 13:43 INR, PTT INR 1.01 (0.82-1.09) 08/16/17 13:43 Problem List - Problems (1) GI bleed Assessment/Plan: I agree that the melena and azotemia suggest UGI bleeding. Most likely etiologies include aspirin induced ulcers or erosive gastritis, vascular ectasias, GERD and David ( hiatal hernia) ulcers among other possibilities. I have discussed the need for an EGD to investigate the cause and perhaps to intervene. I have discussed the potential risks of anesthesia. perforation and hemorrhage. She is on a position to make an informed consent. I explained that the cardiology team may want to transfer her to [facility] [place] should cardiovascular problems arise. I agree with transfusing. I will start PPI drip. Code(s): K92.2 - GASTROINTESTINAL HEMORRHAGE, UNSPECIFIED Qualifiers: GI bleed type/associated pathology: angiodysplasia of stomach and duodenum Qualified Code(s): K31.811 - Angiodysplasia of stomach and duodenum with bleeding (2) Colon adenomas Assessment/Plan: Given her current cardiac status a bowel prep and colonoscopy would appear to be too high a risk for elective surveillance. This may change if her MR gets intervention. Will discuss with cardiology. Code(s): D12.6 - BENIGN NEOPLASM OF COLON, UNSPECIFIED (3) Diverticulosis Code(s): K57.90 - DVRTCLOS OF INTEST, PART UNSP, W/O PERF OR ABSCESS W/O BLEED (4) Cholelithiasis Code(s): K80.20 - CALCULUS OF GALLBLADDER W/O CHOLECYSTITIS W/O OBSTRUCTION (5) Renal stones Code(s): N20.0 - CALCULUS OF KIDNEY (6) Legally blind Code(s): H54.8 - LEGAL BLINDNESS, DEFINED IN [place] Assessment/Plan PPI drip Transfuse Clear liquids EGD [place] [facility]
[2017-08-16] MEDS: INSULIN SLIDING SCALE (NOVOLOG) 1 VIAL SQ SCH ×2 (18:29→23:39)
[2017-08-16] MEDS ORDERED: PANTOPRAZOLE SODIUM 80 MG in SODIUM CHLORIDE 100 ML IVPB SCH (18:30)
[2017-08-16] MEDS: PANTOPRAZOLE SODIUM 160 MG in DEXTROSE 5%-WATER - 290 ML IVPB SCH (19:09)
[2017-08-16] MEDS ORDERED: SERTRALINE HCL 50 MG TABLET (FP) ONE (22:44)
[2017-08-16] MEDS ORDERED: ALBUTEROL SO4 2.5/IPRATROPIUM 0.5 INH SOL 3 ML VIAL.NEB. NEB ONE (22:45)
[2017-08-16] MEDS ORDERED: MAG HYDROX/AL HYDROX/SIMETH 30 ML UNIT-DOSE CUP ONE (22:45)
[2017-08-16] MEDS: ALBUTEROL SO4 2.5/IPRATROPIUM 0.5 INH SOL 3 ML VIAL.NEB. NEB SCH (23:40)
[2017-08-16] MEDS: SERTRALINE HCL 25 MG TABLET (FP) PO SCH (23:41)
[2017-08-16] MEDS: LATANOPROST 0.005% OPHTH SOLN 2.5ML BOTTLE OU SCH (23:41)
[2017-08-16] MEDS: ATORVASTATIN CA 10 MG TABLET (FP) PO SCH (23:41)
[2017-08-16] MEDS: OMEGA-3 ACID ETHYL ESTERS (FATTY-ACIDS) 1 GM CAPSULE (FP) PO SCH (23:41)
[2017-08-16] MEDS: CARVEDILOL 6.25 MG TABLET (FP) PO SCH (23:41)
[2017-08-16] MEDS: BUDESONIDE/FORMETEROL FUMARATE 80/4.5 mcg INHALER IH SCH (23:41)
[2017-08-17 05:01] VITALS: BMI 29.8
[2017-08-17] MEDS: LEVOTHYROXINE NA 25 MCG TABLET (FP) PO SCH (06:10)
[2017-08-17] MEDS: INSULIN SLIDING SCALE (NOVOLOG) 1 VIAL SQ SCH ×4 (06:12→21:51)
[2017-08-17 08:05] LABS: BASO % 0.8 % (0-2.0); EOS % 2.4 % (0-4.5); HEMATOCRIT 23.8 % (32.4-45.2); HEMOGLOBIN 8.2 GM/dL (10.7-15.3); LYMPH % 21.6 % (8-40); MCH 30.2 pg (25.7-33.7); MCHC 34.4 g/dl (32.0-36.0); MEAN CELL VOLUME 87.7 fl (80-96); MEAN PLT VOLUME 7.7 fl (7.5-11.1); NEUT % 64.2 % (42.8-82.8); PLATELET COUNT 215 K/MM3 (134-434); RBC 2.71 M/mm3 (3.60-5.2); RDW 16.3 % (11.6-15.6); WHITE BLOOD COUNT 9.7 K/mm3 (4.0-10.0)
[2017-08-17 08:37] LABS: ANION GAP 7 (8-16); BLOOD UREA NITROGEN 42 mg/dL (7-18); CALCIUM 8.3 mg/dL (8.5-10.1); CHLORIDE 104 mmol/L (98-107); CO2 27 mmol/L (21-32); CREATININE 0.9 mg/dL (0.55-1.02); GLUCOSE,RANDOM 125 mg/dL (74-106); MAGNESIUM 2.2 mg/dL (1.8-2.4); PHOSPHOROUS 2.8 mg/dL (2.5-4.9); POTASSIUM 4.3 mmol/L (3.5-5.1); SODIUM 138 mmol/L (136-145)
[2017-08-17] MEDS: MAG HYDROX/AL HYDROX/SIMETH 30 ML UNIT-DOSE CUP PO SCH ×4 (09:35→22:00)
[2017-08-17] MEDS: LOSARTAN POTASSIUM 50 MG TABLET (FP) PO SCH (09:35)
[2017-08-17] MEDS: OMEGA-3 ACID ETHYL ESTERS (FATTY-ACIDS) 1 GM CAPSULE (FP) PO SCH ×2 (09:35→21:50)
[2017-08-17] MEDS: CHOLECALCIFEROL (VITAMIN D3) 1,000 UNIT TABLET (FP) PO SCH (09:35)
[2017-08-17] MEDS: CARVEDILOL 6.25 MG TABLET (FP) PO SCH ×2 (09:35→21:50)
[2017-08-17] MEDS ORDERED: PATIENT'S OWN MEDICATION (NON-FORMULARY) (Omega-3s/Dha/Epa/Fish Oil [Fish Oil 1,200 Mg Sof PO SCH (10:00)
--- NOTE | 2017-08-17 10:32 | CON.CARD ---
Consult Consult Specialty:: Cardiology Referred by:: Mac Crawford MD Reason for Consultation:: Dyspnea and fatigue - History of Present Illness Chief Complaint: Dyspnea and fatigue History of Present Illness: 81F is admitted with progressive weakness, worsening SOB, positional dizziness without true syncope. She has h/o s/p TAVR (23 mm Qian 3) 08/03/2016 but now has significant mitral regurgitation being evaluated for possible percutaneous mitral valve replacement vs MitraClip, but since deferred when her dyspnea improved. She is now found to have profound anemia. Eyesight is too poor to see her stool color, ambulates with cane. She denies chest pain, PND, palpitations or LE edema, has stable 2 pillow orthopnea. - History Source History Provided By: Patient Limitations to Obtaining History: No Limitations - Past Medical History Cardio/Vascular: Yes: Aortic Stenosis (resolved with TAVR), CHF (last DON had good systolic function, 2016), HTN, Hyperlipdemia, 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), Mitral Stenosis (probable MS) Pulmonary: Yes: COPD, Sleep Apnea Gastrointestinal: Yes: Diverticulosis, Hiatal Hernia, Other (multiple colon adenomas removed 2014, 2015, capsule endoscopy Dr Olvera 2016 unrevealing) Hepatobiliary: Yes: Cholelithiasis, Other (fatty liver) Renal/: Yes: Renal Calculi Musculoskeletal: Yes: Osteoarthritis Endocrine: Yes: Diabetes Mellitus (with retinopathy), Hypothyroidism Additional Medical History: Legally blind with diabetic retinopathy, macular degeneration and glaucoma - Past Surgical History Past Surgical History: Yes: Appendectomy (ruptured), Cataract Removal, Colonoscopy, Hernia Repair, Tonsillectomy, Upper Endoscopy, Valve Replacement Additional Surgical History: Bladder lift. Multiple laser eye surgeries. TAVR - Alcohol/Substance Use Hx Alcohol Use: No History of Substance Use: reports: None - Smoking History Smoking history: Never smoked Have you smoked in the past 12 months: No Aproximately how many cigarettes per day: 0 If you are a former smoker, when did you quit?: 1973 - Social History ADL: Independent History of Recent Travel: No Home Medications - Allergies Allergies/Adverse Reactions: Allergies Allergy/AdvReac Type Severity Reaction Status Date / Time quinine [Quinine] Allergy Mild Rash Verified 08/16/17 11:32 Sulfa (Sulfonamide Allergy Mild Rash Verified 08/16/17 11:32 Antibiotics) [Sulfa(Sulfonamide Antibiotics)] - Home Medications Home Medications: Ambulatory Orders Losartan Potassium [Cozaar] 50 mg PO DAILY 12/18/14 Sitagliptin Phosphate [Januvia] 100 mg PO DAILY 12/18/14 metFORMIN HCL [Glucophage -] 500 mg PO TID 12/18/14 Atorvastatin Ca [Lipitor] 10 mg PO HS #1 tablet 12/22/14 Cholecalciferol (Vitamin D3) [Vitamin D3 -] 1,000 unit PO DAILY 03/10/16 Calcium Carb/Vitamin D3/Vit K1 [Citracal Soft Chew] 1 each PO DAILY 04/04/16 Fluticasone/Salmeterol [Advair 250-50 Diskus] 1 each IH BID 04/04/16 Ipratropium/Albuterol Sulfate [Combivent Respimat Inhal [place]] 4 gm IH QID PRN # 1 aer.w.adap 04/08/16 Latanoprost 0.005% Eye Drops [Xalatan 0.005% Eye Drops -] 1 drop OU HS 07/25/16 Aspirin [ASA -] 81 mg PO DAILY tab.chew 07/26/16 Ascorbic Acid [Vitamin C] 500 mg PO DAILY 05/10/17 B12/Levomefolate Calcium/B-6 [Folbic Rf Tablet] 1 each PO DAILY 05/10/17 Levothyroxine [Synthroid -] 0.025 mcg PO DAILY 05/10/17 Nitroglycerin 0.4 mg SL PRN 05/10/17 Gate-3S/Dha/Epa/Fish Oil [Fish Oil 1,200 mg Softgel] 1 cap PO DAILY 05/10/17 Sertraline HCl [Zoloft] 25 mg PO HS 05/10/17 Carvedilol [Coreg -] 6.25 mg PO BID #60 tablet 05/13/17 Meclizine HCl [Antivert -] 12.5 mg PO Q6HPO PRN #30 tablet 05/13/17 Spironolactone [Aldactone] 25 mg PO DAILY #30 tablet 05/13/17 Family Disease History - Family Disease History Family Disease History: Heart Disease: Mother ( 84 MA, had polio), Son ( multiple eye surgeries), Other: Father (emphysema, 64 of PE) Review of Systems - Review of Systems Constitutional: reports: Weakness Respiratory: reports: SOB on Exertion Vital Signs: Vital Signs Temperature 98.8 F 08/17/17 07:35 Pulse Rate 74 08/17/17 07:35 Respiratory Rate 20 08/17/17 07:42 Blood Pressure 124/70 08/17/17 07:35 O2 Sat by Pulse Oximetry (%) 96 08/17/17 07:42 Constitutional: Yes: No Distress, Calm Neck: Yes: Supple Respiratory: Yes: Regular, Diminished Gastrointestinal: Yes: Soft, Abdomen, Obese, Hypoactive Bowel Sounds Cardiovascular: Yes: Regular Rate and Rhythm JVD: No Carotid Bruit: No Heart Sounds: Yes: S1, S2 Murmur: Yes: Systolic Murmur, Grade 3 Edema: No - Other Data Labs, Other Data: CBC, BMP 08/17/17 07:45 08/17/17 07:45 INR, PTT INR 1.01 (0.82-1.09) 08/16/17 13:43 Troponin, BNP 08/16/17 13:43 Troponin I < 0.02 B-Natriuretic Peptide 376.95 Troponin, BNP 08/16/17 13:43 Troponin I < 0.02 B-Natriuretic Peptide 376.95 SR @ [address] 1st deg AVB, LAD Prior Cardiac Procedures: Valve Surgery Ejection Fraction %: LVEF > or = 40 % Imaging - Results Chest X-ray: Report Reviewed (NAD) Problem List - Problems (1) Diastolic CHF due to valvular disease Code(s): I38 - ENDOCARDITIS, VALVE UNSPECIFIED; I50.30 - UNSPECIFIED DIASTOLIC ( CONGESTIVE) HEART FAILURE (2) Legally blind Code(s): H54.8 - LEGAL BLINDNESS, DEFINED IN [place] (3) Symptomatic anemia Code(s): D64.9 - ANEMIA, UNSPECIFIED (4) Aortic stenosis Code(s): I35.0 - NONRHEUMATIC AORTIC (VALVE) STENOSIS Qualifiers: Cardiac valve disease etiology: nonrheumatic Qualified Code(s): I35.0 - Nonrheumatic aortic (valve) stenosis (5) CAD (coronary artery disease) Code(s): I25.10 - ATHSCL HEART DISEASE OF [place] CORONARY ARTERY W/O ANG PCTRS Qualifiers: Coronary Disease-Associated Artery/Lesion type: [place] artery [place] vs. transplanted heart: [place] heart Associated angina: without angina Qualified Code(s): I25.10 - Atherosclerotic heart disease of [place] coronary artery without angina pectoris (6) Diabetes Code(s): E11.9 - TYPE 2 DIABETES MELLITUS WITHOUT COMPLICATIONS Qualifiers: Diabetes mellitus type: type 2 (7) GI bleed Code(s): K92.2 - GASTROINTESTINAL HEMORRHAGE, UNSPECIFIED Qualifiers: GI bleed type/associated pathology: angiodysplasia of stomach and duodenum Qualified Code(s): K31.811 - Angiodysplasia of stomach and duodenum with bleeding (8) HTN (hypertension) Code(s): I10 - ESSENTIAL (PRIMARY) HYPERTENSION Qualifiers: Hypertension type: essential hypertension Qualified Code(s): I10 - Essential (primary) hypertension (9) Hypothyroid Code(s): E03.9 - HYPOTHYROIDISM, UNSPECIFIED Qualifiers: Hypothyroidism type: unspecified Qualified Code(s): E03.9 - Hypothyroidism , unspecified (10) Mitral valve regurgitation Code(s): I34.0 - NONRHEUMATIC MITRAL (VALVE) INSUFFICIENCY Qualifiers: Cardiac valve disease etiology: nonrheumatic Qualified Code(s): I34.0 - Nonrheumatic mitral (valve) insufficiency (11) Pulmonary hypertension Code(s): I27.2 - OTHER SECONDARY PULMONARY HYPERTENSION * DO NOT USE * (12) S/P TAVR (transcatheter aortic valve replacement) Code(s): Z95.2 - PRESENCE OF PROSTHETIC HEART VALVE (13) Shortness of breath Code(s): R06.02 - SHORTNESS OF BREATH (14) Transfusion of blood during current hospitalization Code(s): VOA0070 - (15) Weakness Code(s): R53.1 - WEAKNESS Assessment/Plan 05/12/2017 DON: Normal LV size and fxn, mild MV prolapse with severe eccentric MR, bioAVR, mild LAE Echocardiography performed 04/21/17 revealed mild degree of concentric left ventricular hypertrophy with normal left ventricular systolic function and estimated left ventricular ejection fraction between 65-70%, left atrial dilatation measuring 4.4 cm, normal right ventricular size and function, bio- prosthetic aortic valve with no evidence of aortic valve regurgitation and acceptable trans-valvular gradient with a mean trans-valvular gradient of 15 mmHg and a peak trans-valvular gradient of 29 mmHg, thickened mitral valve leaflets moderate to severe eccentrically/anteriorly directed mitral valve regurgitation (significant change in comparison to the prior study dated August 05, 2016), mild to moderate tricuspid valve regurgitation with calculated RVSP of 56 mmHg consistent with moderate degree of my hypertension ( significant change in comparison to the prior study dated August 05, 2016). 1. Dyspnea and fatigue referable to profound anemia, r/o UGI source including aspirin induced ulcers or erosive gastritis, vascular ectasias, GERD and David ( hiatal hernia) ulcers. I don't suspect hemolytic anemia referable to prosthetic valve regurgitation given absence of aortic regurgitation 2. Chronic mitral valve regurgitation 2. Aortic valve disease critical aortic valve stenosis post transcutaneous aortic valve replacement TAVR (23 mm Qian 3 Trans-catheter Tissue Valve) 3. Coronary artery disease 4. Diastolic left ventricular dysfunction with acute on chronic class I-II [place] [employer] classification left ventricular failure, currently compensated/euvolemic 5. Tricuspid valve regurgitation 6. HTN/HCVD 7. NIDDM 8. Hypercholesterolemia 9. History of retinal hemorrhages 10. Carotid stenosis 11. Hypothyroidism 12. Chronic obstructive pulmonary disease 13. History gastro-esophageal reflux disease 14. History of gastro-intestinal bleed 15. History of diverticular disease 16. 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 History of degenerative joint disease PLAN: 1. Transfuse to maintain Hgb>8.0, continue PPI, given patient is clinically euvolemic, may proceed with EGD from CV standpoint 2. Continue Coreg 6.25 bid, Cozaar 50 qd, Lipitor 10 qhs, and resume spironolactone 25 qd. ASA 81 qd d/[place] 3. Thank you for consultative opportunity, transmitral valve repair options have been discussed as outpatient
[2017-08-17] MEDS: BUDESONIDE/FORMETEROL FUMARATE 80/4.5 mcg INHALER IH SCH ×2 (11:43→21:53)
[2017-08-17] MEDS: SPIRONOLACTONE 25 MG TABLET (FP) PO SCH (11:46)
--- NOTE | 2017-08-17 13:48 | PN ---
Progress Note, Physician Chief Complaint: Ms Valadez says she is feeling better but still very fatigued as did not sleep a lot last night. No cp, sob, n/v. - Current Medication List Current Medications: Active Medications Acetaminophen (Tylenol -) 650 mg PO Q4H PRN PRN Reason: PAIN LEVEL 1-5 Al Hydroxide/Mg Hydroxide (Mylanta Oral Suspension -) 30 ml PO QID [facility] Last Admin: 08/17/17 09:35 Dose: 30 ml Albuterol/Ipratropium (Duoneb -) 1 amp NEB RQID [facility] Last Admin: 08/16/17 23:40 Dose: 1 amp Atorvastatin Calcium (Lipitor -) 10 mg PO HS [facility] Last Admin: 08/16/17 23:41 Dose: Not Given Budesonide/Formoterol Fumarate (Symbicort 80/4.5mcg -) 2 puff IH BID [facility] Last Admin: 08/17/17 11:43 Dose: 2 puff Carvedilol (Coreg -) 6.25 mg PO BID [facility] Last Admin: 08/17/17 09:35 Dose: 6.25 mg Cholecalciferol (Vitamin D3 -) 1,000 unit PO DAILY [facility] Last Admin: 08/17/17 09:35 Dose: 1,000 unit Furosemide (Lasix Injection -) 20 mg IVPUSH ONCE ONE Stop: 08/17/17 16:31 Pantoprazole Sodium 160 mg/ (Dextrose) 290 mls @ 14.5 mls/hr IVPB Q20H [facility] Last Admin: 08/16/17 19:09 Dose: 14.5 mls/hr Insulin Aspart (Novolog Vial Sliding Scale -) 1 vial SQ ACHS [facility] PRN Reason: Protocol Last Admin: 08/17/17 11:28 Dose: Not Given Latanoprost (Xalatan 0.005% Eye Drops -) 1 drop OU HS [facility] Last Admin: 08/16/17 23:41 Dose: Not Given Levothyroxine Sodium (Synthroid -) 25 mcg PO DAILY@0700 [facility] Last Admin: 08/17/17 06:10 Dose: 25 mcg Losartan Potassium (Cozaar -) 50 mg PO DAILY [facility] Last Admin: 08/17/17 09:35 Dose: 50 mg Nitroglycerin (Nitrostat -) 0.4 mg SL DAILY PRN PRN Reason: SHORTNESS OF BREATH [id number] Ethyl Esters (Lovaza -) 2 gm PO BID [facility] Last Admin: 08/17/17 09:35 Dose: 2 gm Sertraline HCl (Zoloft -) 25 mg PO HS [facility] Last Admin: 08/16/17 23:41 Dose: 25 mg Spironolactone (Aldactone -) 25 mg PO DAILY [facility] Last Admin: 08/17/17 11:46 Dose: 25 mg - Objective Vital Signs: Vital Signs Temperature 37.1 C 08/17/17 07:35 Pulse Rate 74 08/17/17 07:35 Respiratory Rate 20 08/17/17 07:42 Blood Pressure 124/70 08/17/17 07:35 O2 Sat by Pulse Oximetry (%) 96 08/17/17 07:42 Constitutional: Yes: Well Nourished, No Distress, Calm Cardiovascular: Yes: Regular Rate and Rhythm, Murmur. No: Gallop, Rub Respiratory: Yes: Regular, CTA Bilaterally. No: Rales, Rhonchi, Wheezes Gastrointestinal: Yes: Normal Bowel Sounds, Soft. No: Distention, Tenderness Extremities: Yes: WNL Edema: No Labs: CBC, BMP 08/17/17 07:45 08/17/17 07:45 INR, PTT INR 1.01 (0.82-1.09) 08/16/17 13:43 Problem List - Problems (1) GI bleed Code(s): K92.2 - GASTROINTESTINAL HEMORRHAGE, UNSPECIFIED Qualifiers: GI bleed type/associated pathology: angiodysplasia of stomach and duodenum Qualified Code(s): K31.811 - Angiodysplasia of stomach and duodenum with bleeding (2) Symptomatic anemia Code(s): D64.9 - ANEMIA, UNSPECIFIED (3) Mitral valve regurgitation Code(s): I34.0 - NONRHEUMATIC MITRAL (VALVE) INSUFFICIENCY Qualifiers: Cardiac valve disease etiology: nonrheumatic Qualified Code(s): I34.0 - Nonrheumatic mitral (valve) insufficiency (4) Diastolic CHF due to valvular disease Code(s): I38 - ENDOCARDITIS, VALVE UNSPECIFIED; I50.30 - UNSPECIFIED DIASTOLIC ( CONGESTIVE) HEART FAILURE (5) CAD (coronary artery disease) Code(s): I25.10 - ATHSCL HEART DISEASE OF [place] CORONARY ARTERY W/O ANG PCTRS Qualifiers: Coronary Disease-Associated Artery/Lesion type: [place] artery [place] vs. transplanted heart: [place] heart Associated angina: without angina Qualified Code(s): I25.10 - Atherosclerotic heart disease of [place] coronary artery without angina pectoris (6) COPD (chronic obstructive pulmonary disease) Code(s): J44.9 - CHRONIC OBSTRUCTIVE PULMONARY DISEASE, UNSPECIFIED Qualifiers: COPD type: unspecified COPD Qualified Code(s): J44.9 - Chronic obstructive pulmonary disease, unspecified (7) Diabetes Code(s): E11.9 - TYPE 2 DIABETES MELLITUS WITHOUT COMPLICATIONS Qualifiers: Diabetes mellitus type: type 2 (8) HTN (hypertension) Code(s): I10 - ESSENTIAL (PRIMARY) HYPERTENSION Qualifiers: Hypertension type: essential hypertension Qualified Code(s): I10 - Essential (primary) hypertension (9) Hypothyroid Code(s): E03.9 - HYPOTHYROIDISM, UNSPECIFIED Qualifiers: Hypothyroidism type: unspecified Qualified Code(s): E03.9 - Hypothyroidism , unspecified Assessment/Plan (1) GI bleed Assessment/Plan: -appreciate GI assistance -changed from bid IV protonix to protonix gtt -planning for endoscopy Code(s): K92.2 - GASTROINTESTINAL HEMORRHAGE, UNSPECIFIED Qualifiers: GI bleed type/associated pathology: angiodysplasia of stomach and duodenum Qualified Code(s): K31.811 - Angiodysplasia of stomach and duodenum with bleeding (2) Symptomatic anemia Assessment/Plan: -acute blood loss anemia -s/p 2 units pRBCs with proper response -monitor Code(s): D64.9 - ANEMIA, UNSPECIFIED (3) Mitral valve regurgitation Assessment/Plan: -appreciate cardiology assistance Code(s): I34.0 - NONRHEUMATIC MITRAL (VALVE) INSUFFICIENCY Qualifiers: Cardiac valve disease etiology: nonrheumatic Qualified Code(s): I34.0 - Nonrheumatic mitral (valve) insufficiency (4) Diastolic CHF due to valvular disease Assessment/Plan: -continue aldactone Code(s): I38 - ENDOCARDITIS, VALVE UNSPECIFIED; I50.30 - UNSPECIFIED DIASTOLIC ( CONGESTIVE) HEART FAILURE (5) CAD (coronary artery disease) Assessment/Plan: -holding aspirin secondary to GIB -quiescent -otherwise continue home regimen Code(s): I25.10 - ATHSCL HEART DISEASE OF [place] CORONARY ARTERY W/O ANG PCTRS Qualifiers: Coronary Disease-Associated Artery/Lesion type: [place] artery [place] vs. transplanted heart: [place] heart Associated angina: without angina Qualified Code(s): I25.10 - Atherosclerotic heart disease of [place] coronary artery without angina pectoris (6) COPD (chronic obstructive pulmonary disease) Assessment/Plan: -continue duonebs Code(s): J44.9 - CHRONIC OBSTRUCTIVE PULMONARY DISEASE, UNSPECIFIED Qualifiers: COPD type: unspecified COPD Qualified Code(s): J44.9 - Chronic obstructive pulmonary disease, unspecified (7) Diabetes Assessment/Plan: -FSBS and SSI -holding oral hypoglycemics until after endoscopy Code(s): E11.9 - TYPE 2 DIABETES MELLITUS WITHOUT COMPLICATIONS Qualifiers: Diabetes mellitus type: type 2 (8) HTN (hypertension) Assessment/Plan: -controlled -continue regimen with hold parameters Code(s): I10 - ESSENTIAL (PRIMARY) HYPERTENSION Qualifiers: Hypertension type: essential hypertension Qualified Code(s): I10 - Essential (primary) hypertension (9) Hypothyroid Assessment/Plan: -continue synthroid Code(s): E03.9 - HYPOTHYROIDISM, UNSPECIFIED
[2017-08-17] MEDS: PANTOPRAZOLE SODIUM 160 MG in DEXTROSE 5%-WATER - 290 ML IVPB SCH (14:20)
[2017-08-17] MEDS ORDERED: FUROSEMIDE 40 MG/4 ML INJECTABLE VIAL IVPUSH ONE (16:30)
--- NOTE | 2017-08-17 17:10 | EKG ---
Test Reason : Blood Pressure : / mmHG Vent. Rate : 079 BPM Atrial Rate : 079 BPM P-R Int : 214 ms QRS Dur : 100 ms QT Int : 386 ms P-R-T Axes : 067 -38 060 degrees QTc Int : 442 ms SINUS RHYTHM WITH 1ST DEGREE A-V BLOCK LEFT AXIS DEVIATION INCOMPLETE RIGHT BUNDLE BRANCH BLOCK VOLTAGE CRITERIA FOR LEFT VENTRICULAR HYPERTROPHY CANNOT RULE OUT SEPTAL INFARCT , AGE UNDETERMINED ABNORMAL ECG WHEN COMPARED WITH ECG OF 10-MAY-2017 11:25, NO SIGNIFICANT CHANGE WAS FOUND Confirmed by ONESIMO HER MD ([id number]) on 08/17/2017 5:10:06 PM Referred By: Confirmed By:ONESIMO HER MD
--- NOTE | 2017-08-17 19:27 | PN ---
Progress Note (short form) - Note Progress Note: GI NOte: Discussed case with Dr Hayden who has cleared Stlela for endoscopy. Have scheduled for 08/19 Problem List - Problems (1) GI bleed Code(s): K92.2 - GASTROINTESTINAL HEMORRHAGE, UNSPECIFIED Qualifiers: GI bleed type/associated pathology: angiodysplasia of stomach and duodenum Qualified Code(s): K31.811 - Angiodysplasia of stomach and duodenum with bleeding (2) Colon adenomas Code(s): D12.6 - BENIGN NEOPLASM OF COLON, UNSPECIFIED (3) Diverticulosis Code(s): K57.90 - DVRTCLOS OF INTEST, PART UNSP, W/O PERF OR ABSCESS W/O BLEED (4) Cholelithiasis Code(s): K80.20 - CALCULUS OF GALLBLADDER W/O CHOLECYSTITIS W/O OBSTRUCTION (5) Renal stones Code(s): N20.0 - CALCULUS OF KIDNEY (6) Legally blind Code(s): H54.8 - LEGAL BLINDNESS, DEFINED IN [place]
[2017-08-17] MEDS: ALBUTEROL SO4 2.5/IPRATROPIUM 0.5 INH SOL 3 ML VIAL.NEB. NEB SCH (21:26)
[2017-08-17] MEDS: ATORVASTATIN CA 10 MG TABLET (FP) PO SCH (21:50)
[2017-08-17] MEDS: SERTRALINE HCL 25 MG TABLET (FP) PO SCH (21:50)
[2017-08-17] MEDS: LATANOPROST 0.005% OPHTH SOLN 2.5ML BOTTLE OU SCH (22:36)
[2017-08-18] MEDS: LEVOTHYROXINE NA 25 MCG TABLET (FP) PO SCH ×2 (06:02→09:36)
[2017-08-18] MEDS: INSULIN SLIDING SCALE (NOVOLOG) 1 VIAL SQ SCH ×4 (06:04→21:51)
[2017-08-18 06:53] LABS: HEMATOCRIT 23.7 % (32.4-45.2); HEMOGLOBIN 8.2 GM/dL (10.7-15.3); MCHC 34.6 g/dl (32.0-36.0); MEAN CELL VOLUME 89.7 fl (80-96); PLATELET COUNT 209 K/MM3 (134-434); RBC 2.64 M/mm3 (3.60-5.2); RDW 16.1 % (11.6-15.6); WHITE BLOOD COUNT 7.6 K/mm3 (4.0-10.0)
[2017-08-18] MEDS: ALBUTEROL SO4 2.5/IPRATROPIUM 0.5 INH SOL 3 ML VIAL.NEB. NEB SCH ×5 (07:59→20:50)
--- NOTE | 2017-08-18 09:52 | PN ---
Physical Exam: SUBJECTIVE: Patient seen and examined at the bedside. She denies fatigue or dizziness at this time. She is happy she gets to have a liquid diet right now. Last BM was on Tuesday, none since OBJECTIVE: NPO at midnight for EGD tomorrow hmg/hct low stable s/p 2 units of prbc Vital Signs Period Temp Pulse Resp BP Sys/Jose Pulse Ox Last 24 Hr 97.5 F-98.2 F 65-78 18-20 96-116/48-72 96 GENERAL: The patient is awake, alert, and fully oriented, in no acute distress. HEAD: Normal with no signs of trauma. EYES: PERRL, extraocular movements intact, sclera anicteric, conjunctiva clear. No ptosis. ENT: Ears normal, nares patent, oropharynx clear without exudates, moist mucous membranes. NECK: Trachea midline, full range of motion, supple. LUNGS: Breath sounds equal, clear to auscultation bilaterally, no wheezes, no crackles, no accessory muscle use. HEART: SR 69 on laborer powerhouse ABDOMEN: Soft, nontender, nondistended, normoactive bowel sounds, no guarding EXTREMITIES: no edema. NEUROLOGICAL: Normal speech PSYCH: Normal mood, normal affect. SKIN: Warm, dry, normal turgor, no rashes or lesions noted Laboratory Results - last 24 hr 08/17/17 08/17/17 08/17/17 11:26 16:39 21:19 WBC RBC Hgb Hct MCV MCH MCHC RDW Plt Count MPV POC Glucometer 168 152 136 08/18/17 08/18/17 05:05 05:49 WBC 7.6 RBC 2.64 L Hgb 8.2 L Hct 23.7 L MCV 89.7 MCH 31.0 MCHC 34.6 RDW 16.1 H Plt Count 209 MPV 8.0 POC Glucometer 148 Active Medications Generic Name Dose Route Start Last Admin Trade Name Freq PRN Reason Stop Dose Admin Acetaminophen 650 mg 08/16/17 16:12 Tylenol - PO Q4H PRN PAIN LEVEL 1-5 Al Hydroxide/Mg Hydroxide 30 ml 08/16/17 18:45 08/17/17 22:00 Mylanta Oral Suspension - PO 30 ml QID [facility] Administration Albuterol/Ipratropium 1 amp 08/16/17 20:00 08/18/17 07:59 Duoneb - NEB 1 amp RQID [facility] Administration Atorvastatin Calcium 10 mg 08/16/17 22:00 08/17/17 21:50 Lipitor - PO 10 mg HS [facility] Administration Budesonide/Formoterol Fumarate 2 puff 08/16/17 22:00 08/17/17 21:53 Symbicort 80/4.5mcg - IH 2 puff BID [facility] Administration Carvedilol 6.25 mg 08/16/17 22:00 08/17/17 21:50 Coreg - PO 6.25 mg BID [facility] Administration Cholecalciferol 1,000 unit 08/17/17 10:00 08/17/17 09:35 Vitamin D3 - PO 1,000 unit DAILY [facility] Administration Pantoprazole Sodium 160 mg/ 290 mls @ 14.5 mls/hr 08/16/17 18:45 08/17/17 14: 20 Dextrose IVPB 14.5 mls/hr Q20H [facility] Administration Insulin Aspart 1 vial 08/16/17 16:30 08/18/17 06:04 Novolog Vial Sliding Scale - SQ Not Given ACHS [facility] Protocol Latanoprost 1 drop 08/16/17 22:00 08/17/17 22:36 Xalatan 0.005% Eye Drops - OU 1 drop HS [facility] Administration Levothyroxine Sodium 25 mcg 08/17/17 07:00 08/18/17 09:36 Synthroid - PO 25 mcg DAILY@0700 [facility] Administration Losartan Potassium 50 mg 08/17/17 10:00 08/17/17 09:35 Cozaar - PO 50 mg DAILY [facility] Administration Nitroglycerin 0.4 mg 08/16/17 16:15 Nitrostat - SL DAILY PRN SHORTNESS OF BREATH Lggid-1-Brek Ethyl Esters 2 gm 08/16/17 22:00 08/17/17 21:50 Lovaza - PO 2 gm BID [facility] Administration Sertraline HCl 25 mg 08/16/17 22:00 08/17/17 21:50 Zoloft - PO 25 mg HS [facility] Administration Spironolactone 25 mg 08/17/17 11:00 08/17/17 11:46 Aldactone - PO 25 mg DAILY [facility] Administration ASSESSMENT/PLAN: Patient is an 81 year old female with a significant past medical history of diabetes, hypertension, hyperlipidemia, aortic stenosis status post TAVR (1 year ago), who presents with 3 days of weakness, lightheadedness and dyspnea on exertion. She was recently worked up for a mitral valve replacement and was going forward with a clip versus a mitral valve replacement. Heme: Generalized weakness, lightheadedness, dyspnea on exertion Likely secondary to blood loss anemia: hmg/hct on presentation 6.3/18.7, s/p 2 units of prbc since admission She is on ASA 81mg at home On a Protonix drip EGD in a.m. Liquid diet now Monitor hmg/hct daily GI following Hypertension, chronic Hypotensive this am. Will add parameters to cardiac meds On Losartan, Coreq 6.25mg BID Monitor BP Endocrine: Diabetes Novolg ac/hs Monitor bloods sugars Hypothyroidism On Synthroid F.E.N. Fluids: Liquid diet now Electrolytes: CMP in a.m. Nutrition: liquid diet Prophylaxis: DVT: SCDs when in bed, no a/c 2/2 to anemia GI: Protonix drip Disposition: full code. Visit type - Emergency Visit Emergency Visit: Yes ED Registration Date: 08/16/17 Care time: The patient presented to the Emergency Department on the above date and was hospitalized for further evaluation of their emergent condition. - New Patient This patient is new to me today: Yes Date on this admission: 08/18/17 - Critical Care Critical Care patient: No - Discharge Referral Referred to [facility] No
[2017-08-18] MEDS: LOSARTAN POTASSIUM 50 MG TABLET (FP) PO SCH (11:07)
[2017-08-18] MEDS: MAG HYDROX/AL HYDROX/SIMETH 30 ML UNIT-DOSE CUP PO SCH ×4 (11:07→21:51)
[2017-08-18] MEDS: CHOLECALCIFEROL (VITAMIN D3) 1,000 UNIT TABLET (FP) PO SCH (11:08)
[2017-08-18] MEDS: CARVEDILOL 6.25 MG TABLET (FP) PO SCH ×2 (11:08→21:46)
[2017-08-18] MEDS: OMEGA-3 ACID ETHYL ESTERS (FATTY-ACIDS) 1 GM CAPSULE (FP) PO SCH ×2 (11:08→21:46)
[2017-08-18] MEDS: SPIRONOLACTONE 25 MG TABLET (FP) PO SCH (11:08)
[2017-08-18] MEDS: BUDESONIDE/FORMETEROL FUMARATE 80/4.5 mcg INHALER IH SCH ×2 (11:11→21:59)
--- NOTE | 2017-08-18 11:35 | PN ---
Progress Note, Physician History of Present Illness: Hgb stable post 2 U pRBC transfusion, denies chest pain, dyspnea, palps, orthopnea. - Current Medication List Current Medications: Active Medications Acetaminophen (Tylenol -) 650 mg PO Q4H PRN PRN Reason: PAIN LEVEL 1-5 Al Hydroxide/Mg Hydroxide (Mylanta Oral Suspension -) 30 ml PO QID [facility] Last Admin: 08/18/17 11:07 Dose: 30 ml Albuterol/Ipratropium (Duoneb -) 1 amp NEB RQID [facility] Last Admin: 08/18/17 07:59 Dose: 1 amp Atorvastatin Calcium (Lipitor -) 10 mg PO HS [facility] Last Admin: 08/17/17 21:50 Dose: 10 mg Budesonide/Formoterol Fumarate (Symbicort 80/4.5mcg -) 2 puff IH BID [facility] Last Admin: 08/18/17 11:11 Dose: 2 puff Carvedilol (Coreg -) 6.25 mg PO BID [facility] Last Admin: 08/18/17 11:08 Dose: 6.25 mg Cholecalciferol (Vitamin D3 -) 1,000 unit PO DAILY [facility] Last Admin: 08/18/17 11:08 Dose: 1,000 unit Pantoprazole Sodium 160 mg/ (Dextrose) 290 mls @ 14.5 mls/hr IVPB Q20H [facility] Last Admin: 08/17/17 14:20 Dose: 14.5 mls/hr Insulin Aspart (Novolog Vial Sliding Scale -) 1 vial SQ ACHS [facility] PRN Reason: Protocol Last Admin: 08/18/17 06:04 Dose: Not Given Latanoprost (Xalatan 0.005% Eye Drops -) 1 drop OU HS [facility] Last Admin: 08/17/17 22:36 Dose: 1 drop Levothyroxine Sodium (Synthroid -) 25 mcg PO DAILY@0700 [facility] Last Admin: 08/18/17 09:36 Dose: 25 mcg Losartan Potassium (Cozaar -) 50 mg PO DAILY [facility] Last Admin: 08/18/17 11:07 Dose: 50 mg Nitroglycerin (Nitrostat -) 0.4 mg SL DAILY PRN PRN Reason: SHORTNESS OF BREATH [id number] Ethyl Esters (Lovaza -) 2 gm PO BID [facility] Last Admin: 08/18/17 11:08 Dose: 2 gm Sertraline HCl (Zoloft -) 25 mg PO HS [facility] Last Admin: 08/17/17 21:50 Dose: 25 mg Spironolactone (Aldactone -) 25 mg PO DAILY [facility] Last Admin: 08/18/17 11:08 Dose: 25 mg - Objective Vital Signs: Vital Signs Temperature 98 F 08/18/17 10:00 Pulse Rate 76 08/18/17 10:00 Respiratory Rate 20 08/18/17 10:00 Blood Pressure 126/58 08/18/17 10:00 O2 Sat by Pulse Oximetry (%) 98 08/18/17 09:00 Constitutional: Yes: No Distress, Calm, Thin Neck: Yes: Supple Cardiovascular: Yes: Regular Rate and Rhythm, Murmur (2/6 SM) Respiratory: Yes: Regular, Diminished Gastrointestinal: Yes: Normal Bowel Sounds, Soft Edema: No Labs: CBC, BMP 08/18/17 05:05 08/17/17 07:45 INR, PTT INR 1.01 (0.82-1.09) 08/16/17 13:43 Problem List - Problems (1) Diastolic CHF due to valvular disease Code(s): I38 - ENDOCARDITIS, VALVE UNSPECIFIED; I50.30 - UNSPECIFIED DIASTOLIC ( CONGESTIVE) HEART FAILURE (2) Legally blind Code(s): H54.8 - LEGAL BLINDNESS, DEFINED IN [place] (3) Symptomatic anemia Code(s): D64.9 - ANEMIA, UNSPECIFIED (4) Aortic stenosis Code(s): I35.0 - NONRHEUMATIC AORTIC (VALVE) STENOSIS Qualifiers: Cardiac valve disease etiology: nonrheumatic Qualified Code(s): I35.0 - Nonrheumatic aortic (valve) stenosis (5) CAD (coronary artery disease) Code(s): I25.10 - ATHSCL HEART DISEASE OF [place] CORONARY ARTERY W/O ANG PCTRS Qualifiers: Coronary Disease-Associated Artery/Lesion type: [place] artery [place] vs. transplanted heart: [place] heart Associated angina: without angina Qualified Code(s): I25.10 - Atherosclerotic heart disease of [place] coronary artery without angina pectoris (6) Diabetes Code(s): E11.9 - TYPE 2 DIABETES MELLITUS WITHOUT COMPLICATIONS Qualifiers: Diabetes mellitus type: type 2 (7) GI bleed Code(s): K92.2 - GASTROINTESTINAL HEMORRHAGE, UNSPECIFIED Qualifiers: GI bleed type/associated pathology: angiodysplasia of stomach and duodenum Qualified Code(s): K31.811 - Angiodysplasia of stomach and duodenum with bleeding (8) HTN (hypertension) Code(s): I10 - ESSENTIAL (PRIMARY) HYPERTENSION Qualifiers: Hypertension type: essential hypertension Qualified Code(s): I10 - Essential (primary) hypertension (9) Hypothyroid Code(s): E03.9 - HYPOTHYROIDISM, UNSPECIFIED Qualifiers: Hypothyroidism type: unspecified Qualified Code(s): E03.9 - Hypothyroidism , unspecified (10) Mitral valve regurgitation Code(s): I34.0 - NONRHEUMATIC MITRAL (VALVE) INSUFFICIENCY Qualifiers: Cardiac valve disease etiology: nonrheumatic Qualified Code(s): I34.0 - Nonrheumatic mitral (valve) insufficiency (11) Pulmonary hypertension Code(s): I27.2 - OTHER SECONDARY PULMONARY HYPERTENSION * DO NOT USE * (12) S/P TAVR (transcatheter aortic valve replacement) Code(s): Z95.2 - PRESENCE OF PROSTHETIC HEART VALVE (13) Shortness of breath Code(s): R06.02 - SHORTNESS OF BREATH (14) Transfusion of blood during current hospitalization Code(s): [id number] - (15) Weakness Code(s): R53.1 - WEAKNESS Assessment/Plan 05/12/2017 DON: Normal LV size and fxn, mild MV prolapse with severe eccentric MR, bioAVR, mild LAE Echocardiography performed 04/21/17 revealed mild degree of concentric left ventricular hypertrophy with normal left ventricular systolic function and estimated left ventricular ejection fraction between 65-70%, left atrial dilatation measuring 4.4 cm, normal right ventricular size and function, bio- prosthetic aortic valve with no evidence of aortic valve regurgitation and acceptable trans-valvular gradient with a mean trans-valvular gradient of 15 mmHg and a peak trans-valvular gradient of 29 mmHg, thickened mitral valve leaflets moderate to severe eccentrically/anteriorly directed mitral valve regurgitation (significant change in comparison to the prior study dated August 05, 2016), mild to moderate tricuspid valve regurgitation with calculated RVSP of 56 mmHg consistent with moderate degree of my hypertension ( significant change in comparison to the prior study dated August 05, 2016). 1. Dyspnea and fatigue referable to profound anemia, r/o UGI source including aspirin induced ulcers or erosive gastritis, vascular ectasias, GERD and David ( hiatal hernia) ulcers. I don't suspect hemolytic anemia referable to prosthetic valve regurgitation given absence of aortic regurgitation 2. Chronic mitral valve regurgitation 2. Aortic valve disease critical aortic valve stenosis post transcutaneous aortic valve replacement TAVR (23 mm Qian 3 Trans-catheter Tissue Valve) 3. Coronary artery disease 4. Diastolic left ventricular dysfunction with acute on chronic class I-II [place] [employer] classification left ventricular failure, currently compensated/euvolemic 5. Tricuspid valve regurgitation 6. HTN/HCVD 7. NIDDM 8. Hypercholesterolemia 9. History of retinal hemorrhages 10. Carotid stenosis 11. Hypothyroidism 12. Chronic obstructive pulmonary disease 13. History gastro-esophageal reflux disease 14. History of gastro-intestinal bleed 15. History of diverticular disease 16. 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 History of degenerative joint disease PLAN: 1. Transfuse to maintain Hgb>8.0, continue PPI, given patient is clinically euvolemic, may proceed with EGD from CV standpoint, d/w Dr. Blanca 2. Continue Coreg 6.25 bid, Cozaar 50 qd, Lipitor 10 qhs, and resume spironolactone 25 qd. ASA 81 qd d/[place] 3. Transmitral valve repair options have been discussed as outpatient
[2017-08-18] MEDS: PANTOPRAZOLE SODIUM 160 MG in DEXTROSE 5%-WATER - 290 ML IVPB SCH (14:43)
[2017-08-18] MEDS: ATORVASTATIN CA 10 MG TABLET (FP) PO SCH (21:46)
[2017-08-18] MEDS: LATANOPROST 0.005% OPHTH SOLN 2.5ML BOTTLE OU SCH (21:59)
[2017-08-18] MEDS: SERTRALINE HCL 25 MG TABLET (FP) PO SCH (21:59)
[2017-08-19] MEDS: LEVOTHYROXINE NA 25 MCG TABLET (FP) PO SCH (06:00)
[2017-08-19] MEDS: INSULIN SLIDING SCALE (NOVOLOG) 1 VIAL SQ SCH ×4 (06:00→22:15)
[2017-08-19] MEDS: PANTOPRAZOLE SODIUM 160 MG in DEXTROSE 5%-WATER - 290 ML IVPB SCH (06:44)
[2017-08-19 07:27] LABS: CALCIUM 8.7 mg/dL (8.5-10.1); CHLORIDE 99 mmol/L (98-107); POTASSIUM 4.3 mmol/L (3.5-5.1); SODIUM 137 mmol/L (136-145)
[2017-08-19] MEDS: ALBUTEROL SO4 2.5/IPRATROPIUM 0.5 INH SOL 3 ML VIAL.NEB. NEB SCH ×4 (07:32→21:14)
[2017-08-19 07:34] LABS: ALBUMIN 3.4 g/dl (3.4-5.0); ALK PHOS 35 U/L (45-117); ANION GAP 11 (8-16); BILIRUBIN,TOTAL 0.8 mg/dL (0.2-1.0); BLOOD UREA NITROGEN 32 mg/dL (7-18); CO2 27 mmol/L (21-32); CREATININE 1.2 mg/dL (0.55-1.02); GLUCOSE,RANDOM 127 mg/dL (74-106); MAGNESIUM 3.2 mg/dL (1.8-2.4); SGOT/AST 18 U/L (15-37); SGPT/ALT 18 U/L (12-78); TOT PROT 6.2 g/dl (6.4-8.2)
[2017-08-19 07:46] LABS: BASO % 0.4 % (0-2.0); EOS % 2.4 % (0-4.5); HEMATOCRIT 23.6 % (32.4-45.2); HEMOGLOBIN 7.9 GM/dL (10.7-15.3); LYMPH % 25.4 % (8-40); MCH 30.3 pg (25.7-33.7); MCHC 33.4 g/dl (32.0-36.0); MEAN CELL VOLUME 90.9 fl (80-96); MEAN PLT VOLUME 8.1 fl (7.5-11.1); MONO % 13.1 % (3.8-10.2); NEUT % 58.7 % (42.8-82.8); PLATELET COUNT 224 K/MM3 (134-434); RDW 15.7 % (11.6-15.6); WHITE BLOOD COUNT 7.5 K/mm3 (4.0-10.0)
[2017-08-19] MEDS ORDERED: ETOMIDATE 20 MG/10 ML AMPUL IVPUSH ONE (11:08)
[2017-08-19] MEDS ORDERED: PROPOFOL 20 ML ONE (11:08)
[2017-08-19] MEDS ORDERED: LIDOCAINE VISCOUS 2% ORAL/TOP 20 ML UNIT-DOSE CUP ONE (11:09)
--- NOTE | 2017-08-19 12:05 | PN ---
Progress Note (short form) - Note Progress Note: GI Procedure Note: Please see scanned EGD report. No source of anemia or bleeding found. Communicated with Dr Hayden about colonoscopy and got clearance. I have advised Stella to undergo colonoscopy on Tuesday. She agrees. Will prep for colonoscopy in Tuesday. Problem List - Problems (1) GI bleed Code(s): K92.2 - GASTROINTESTINAL HEMORRHAGE, UNSPECIFIED Qualifiers: GI bleed type/associated pathology: angiodysplasia of stomach and duodenum Qualified Code(s): K31.811 - Angiodysplasia of stomach and duodenum with bleeding (2) Colon adenomas Code(s): D12.6 - BENIGN NEOPLASM OF COLON, UNSPECIFIED (3) Diverticulosis Code(s): K57.90 - DVRTCLOS OF INTEST, PART UNSP, W/O PERF OR ABSCESS W/O BLEED (4) Cholelithiasis Code(s): K80.20 - CALCULUS OF GALLBLADDER W/O CHOLECYSTITIS W/O OBSTRUCTION (5) Renal stones Code(s): N20.0 - CALCULUS OF KIDNEY (6) Legally blind Code(s): H54.8 - LEGAL BLINDNESS, DEFINED IN [place]
--- NOTE | 2017-08-19 12:20 | PN ---
Progress Note, Physician History of Present Illness: Hgb stable post 2 U pRBC transfusion, denies chest pain, dyspnea, palps, orthopnea. EGD unremarkable for source of anemia or bleeding found. - Current Medication List Current Medications: Active Medications Acetaminophen (Tylenol -) 650 mg PO Q4H PRN PRN Reason: PAIN LEVEL 1-5 Al Hydroxide/Mg Hydroxide (Mylanta Oral Suspension -) 30 ml PO QID [facility] Last Admin: 08/18/17 21:51 Dose: Not Given Albuterol/Ipratropium (Duoneb -) 1 amp NEB RQID [facility] Last Admin: 08/19/17 07:32 Dose: 1 amp Atorvastatin Calcium (Lipitor -) 10 mg PO HS [facility] Last Admin: 08/18/17 21:46 Dose: 10 mg Bisacodyl (Dulcolax -) 20 mg PO ONCE ONE Stop: 08/21/17 18:01 Budesonide/Formoterol Fumarate (Symbicort 80/4.5mcg -) 2 puff IH BID [facility] Last Admin: 08/18/17 21:59 Dose: 2 puff Carvedilol (Coreg -) 6.25 mg PO BID [facility] Last Admin: 08/18/17 21:46 Dose: 6.25 mg Cholecalciferol (Vitamin D3 -) 1,000 unit PO DAILY [facility] Last Admin: 08/18/17 11:08 Dose: 1,000 unit Insulin Aspart (Novolog Vial Sliding Scale -) 1 vial SQ ACHS [facility] PRN Reason: Protocol Last Admin: 08/19/17 06:00 Dose: Not Given Latanoprost (Xalatan 0.005% Eye Drops -) 1 drop OU [facility] Last Admin: 08/18/17 21:59 Dose: 1 drop Levothyroxine Sodium (Synthroid -) 25 mcg PO DAILY@0700 [facility] Last Admin: 08/19/17 06:00 Dose: Not Given Losartan Potassium (Cozaar -) 50 mg PO DAILY [facility] Last Admin: 08/18/17 11:07 Dose: 50 mg Nitroglycerin (Nitrostat -) 0.4 mg SL DAILY PRN PRN Reason: SHORTNESS OF BREATH [id number] Ethyl Esters (Lovaza -) 2 gm PO BID [facility] Last Admin: 08/18/17 21:46 Dose: 2 gm Pantoprazole Sodium (Protonix -) 40 mg PO DAILY [facility] Polyethylene Glycol (Miralax (For Daily Use) -) 17 gm PO BID [facility] Sertraline HCl (Zoloft -) 25 mg PO HS [facility] Last Admin: 08/18/17 21:59 Dose: 25 mg Spironolactone (Aldactone -) 25 mg PO DAILY [facility] Last Admin: 08/18/17 11:08 Dose: 25 mg - Objective Vital Signs: Vital Signs Temperature 98.9 F 08/19/17 11:25 Pulse Rate 70 08/19/17 11:55 Respiratory Rate 18 08/19/17 11:55 Blood Pressure 105/60 08/19/17 11:55 O2 Sat by Pulse Oximetry (%) 100 08/19/17 11:55 Constitutional: Yes: No Distress, Calm, Thin Neck: Yes: Supple Cardiovascular: Yes: Regular Rate and Rhythm, Murmur (2/6 SM) Respiratory: Yes: Regular, Diminished Gastrointestinal: Yes: Soft, Hypoactive Bowel Sounds Edema: No Labs: CBC, BMP 08/19/17 06:30 08/19/17 06:30 INR, PTT INR 1.01 (0.82-1.09) 08/16/17 13:43 - ....Imaging EKG: Report Reviewed (Tele: SR) Problem List - Problems (1) Diastolic CHF due to valvular disease Code(s): I38 - ENDOCARDITIS, VALVE UNSPECIFIED; I50.30 - UNSPECIFIED DIASTOLIC ( CONGESTIVE) HEART FAILURE (2) Legally blind Code(s): H54.8 - LEGAL BLINDNESS, DEFINED IN [place] (3) Symptomatic anemia Code(s): D64.9 - ANEMIA, UNSPECIFIED (4) Aortic stenosis Code(s): I35.0 - NONRHEUMATIC AORTIC (VALVE) STENOSIS Qualifiers: Cardiac valve disease etiology: nonrheumatic Qualified Code(s): I35.0 - Nonrheumatic aortic (valve) stenosis (5) CAD (coronary artery disease) Code(s): I25.10 - ATHSCL HEART DISEASE OF [place] CORONARY ARTERY W/O ANG PCTRS Qualifiers: Coronary Disease-Associated Artery/Lesion type: [place] artery [place] vs. transplanted heart: [place] heart Associated angina: without angina Qualified Code(s): I25.10 - Atherosclerotic heart disease of [place] coronary artery without angina pectoris (6) Diabetes Code(s): E11.9 - TYPE 2 DIABETES MELLITUS WITHOUT COMPLICATIONS Qualifiers: Diabetes mellitus type: type 2 (7) GI bleed Code(s): K92.2 - GASTROINTESTINAL HEMORRHAGE, UNSPECIFIED Qualifiers: GI bleed type/associated pathology: angiodysplasia of stomach and duodenum Qualified Code(s): K31.811 - Angiodysplasia of stomach and duodenum with bleeding (8) HTN (hypertension) Code(s): I10 - ESSENTIAL (PRIMARY) HYPERTENSION Qualifiers: Hypertension type: essential hypertension Qualified Code(s): I10 - Essential (primary) hypertension (9) Hypothyroid Code(s): E03.9 - HYPOTHYROIDISM, UNSPECIFIED Qualifiers: Hypothyroidism type: unspecified Qualified Code(s): E03.9 - Hypothyroidism , unspecified (10) Mitral valve regurgitation Code(s): I34.0 - NONRHEUMATIC MITRAL (VALVE) INSUFFICIENCY Qualifiers: Cardiac valve disease etiology: nonrheumatic Qualified Code(s): I34.0 - Nonrheumatic mitral (valve) insufficiency (11) Pulmonary hypertension Code(s): I27.2 - OTHER SECONDARY PULMONARY HYPERTENSION * DO NOT USE * (12) S/P TAVR (transcatheter aortic valve replacement) Code(s): Z95.2 - PRESENCE OF PROSTHETIC HEART VALVE (13) Shortness of breath Code(s): R06.02 - SHORTNESS OF BREATH (14) Transfusion of blood during current hospitalization Code(s): [id number] - (15) Weakness Code(s): R53.1 - WEAKNESS Assessment/Plan 05/12/2017 DON: Normal LV size and fxn, mild MV prolapse with severe eccentric MR, bioAVR, mild LAE Echocardiography performed 04/21/17 revealed mild degree of concentric left ventricular hypertrophy with normal left ventricular systolic function and estimated left ventricular ejection fraction between 65-70%, left atrial dilatation measuring 4.4 cm, normal right ventricular size and function, bio- prosthetic aortic valve with no evidence of aortic valve regurgitation and acceptable trans-valvular gradient with a mean trans-valvular gradient of 15 mmHg and a peak trans-valvular gradient of 29 mmHg, thickened mitral valve leaflets moderate to severe eccentrically/anteriorly directed mitral valve regurgitation (significant change in comparison to the prior study dated August 05, 2016), mild to moderate tricuspid valve regurgitation with calculated RVSP of 56 mmHg consistent with moderate degree of pulm hypertension (significant change in comparison to the prior study dated August 05, 2016). 1. Dyspnea and fatigue referable to profound anemia, EGD negative planned for colonoscopy. I don't suspect hemolytic anemia referable to prosthetic valve regurgitation given absence of aortic regurgitation 2. Chronic mitral valve regurgitation 2. Aortic valve disease critical aortic valve stenosis post transcutaneous aortic valve replacement TAVR (23 mm Qian 3 Trans-catheter Tissue Valve) 3. Coronary artery disease 4. Diastolic left ventricular dysfunction with acute on chronic class I-II [place] Heart Association classification left ventricular failure, currently compensated/euvolemic 5. Tricuspid valve regurgitation 6. HTN/HCVD 7. NIDDM 8. Hypercholesterolemia 9. History of retinal hemorrhages 10. Carotid stenosis 11. Hypothyroidism 12. Chronic obstructive pulmonary disease 13. History gastro-esophageal reflux disease 14. History of gastro-intestinal bleed 15. History of diverticular disease 16. 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 History of degenerative joint disease 18. CKD PLAN: 1. Transfuse to maintain Hgb>8.0, continue PPI, given patient is clinically euvolemic, may proceed with colonoscopy from CV standpoint, d/w Dr. Blanca 2. Continue Coreg 6.25 bid, Cozaar 50 qd, Lipitor 10 qhs, Lovaza 2 bid, and spironolactone 25 qd. ASA 81 qd d/[place] 3. Transmitral valve repair options have been discussed as outpatient
[2017-08-19] MEDS: SPIRONOLACTONE 25 MG TABLET (FP) PO SCH (13:17)
[2017-08-19] MEDS: LOSARTAN POTASSIUM 50 MG TABLET (FP) PO SCH (13:18)
[2017-08-19] MEDS: CARVEDILOL 6.25 MG TABLET (FP) PO SCH ×2 (13:18→22:11)
[2017-08-19] MEDS: MAG HYDROX/AL HYDROX/SIMETH 30 ML UNIT-DOSE CUP PO SCH ×3 (13:19→22:16)
[2017-08-19] MEDS: BUDESONIDE/FORMETEROL FUMARATE 80/4.5 mcg INHALER IH SCH ×2 (13:20→22:25)
[2017-08-19] MEDS: CHOLECALCIFEROL (VITAMIN D3) 1,000 UNIT TABLET (FP) PO SCH (13:20)
[2017-08-19] MEDS: OMEGA-3 ACID ETHYL ESTERS (FATTY-ACIDS) 1 GM CAPSULE (FP) PO SCH ×2 (13:21→22:23)
--- NOTE | 2017-08-19 19:15 | PN ---
Physical Exam: SUBJECTIVE: Patient seen and examined, feels well, in no acute distress. OBJECTIVE: Had EGD today, no signs of bleeding found. For colonoscopy Tuesday Vital Signs Period Temp Pulse Resp BP Sys/Jose Pulse Ox Last 24 Hr 97.7 F-99.3 F 67-82 16-20 93-113/51-62 96-100 GENERAL: The patient is awake, alert, and fully oriented, in no acute distress. HEAD: Normal with no signs of trauma. EYES: PERRL, extraocular movements intact, sclera anicteric, conjunctiva clear. No ptosis. ENT: Ears normal, nares patent, oropharynx clear without exudates, moist mucous membranes. NECK: Trachea midline, full range of motion, supple. LUNGS: Breath sounds equal, clear to auscultation bilaterally, no wheezes, no crackles, no accessory muscle use. HEART: SR 69 on air sampling and monitoring ABDOMEN: Soft, nontender, nondistended, normoactive bowel sounds, no guarding EXTREMITIES: no edema. NEUROLOGICAL: Normal speech PSYCH: Normal mood, normal affect. SKIN: Warm, dry, normal turgor, no rashes or lesions noted Laboratory Results - last 24 hr 08/16/17 08/18/17 08/19/17 12:21 21:49 05:41 WBC RBC Hgb Hct MCV MCH MCHC RDW Plt Count MPV Neutrophils % Lymphocytes % Monocytes % Eosinophils % Basophils % Sodium Potassium Chloride Carbon Dioxide Anion Gap BUN Creatinine Creat Clearance w eGFR POC Glucometer 139 151 Random Glucose Calcium Magnesium Total Bilirubin AST ALT Alkaline Phosphatase Total Protein Albumin Blood Type A POSITIVE Antibody Screen Negative Crossmatch See Detail 08/19/17 08/19/17 08/19/17 06:30 06:30 17:05 WBC 7.5 RBC 2.60 L Hgb 7.9 L Hct 23.6 L MCV 90.9 MCH 30.3 MCHC 33.4 RDW 15.7 H Plt Count 224 MPV 8.1 Neutrophils % 58.7 Lymphocytes % 25.4 Monocytes % 13.1 H Eosinophils % 2.4 Basophils % 0.4 Sodium 137 Potassium 4.3 Chloride 99 Carbon Dioxide 27 Anion Gap 11 BUN 32 H Creatinine 1.2 H Creat Clearance w eGFR 43.01 POC Glucometer Random Glucose 127 H Calcium 8.7 Magnesium 3.2 H 3.0 H Total Bilirubin 0.8 D AST 18 ALT 18 Alkaline Phosphatase 35 L Total Protein 6.2 L Albumin 3.4 Blood Type Antibody Screen Crossmatch 08/19/17 17:20 WBC RBC Hgb Hct MCV MCH MCHC RDW Plt Count MPV Neutrophils % Lymphocytes % Monocytes % Eosinophils % Basophils % Sodium Potassium Chloride Carbon Dioxide Anion Gap BUN Creatinine Creat Clearance w eGFR POC Glucometer 140 Random Glucose Calcium Magnesium Total Bilirubin AST ALT Alkaline Phosphatase Total Protein Albumin Blood Type Antibody Screen Crossmatch Active Medications Generic Name Dose Route Start Last Admin Trade Name Freq PRN Reason Stop Dose Admin Acetaminophen 650 mg 08/16/17 16:12 Tylenol - PO Q4H PRN PAIN LEVEL 1-5 Al Hydroxide/Mg Hydroxide 30 ml 08/16/17 18:45 08/19/17 17:57 Mylanta Oral Suspension - PO Not Given QID [facility] Albuterol/Ipratropium 1 amp 08/16/17 20:00 08/19/17 16:49 Duoneb - NEB 1 amp RQID [facility] Administration Atorvastatin Calcium 10 mg 08/16/17 22:00 08/18/17 21:46 Lipitor - PO 10 mg HS [facility] Administration Bisacodyl 20 mg 08/21/17 18:00 Dulcolax - PO 08/21/17 18:01 ONCE ONE Budesonide/Formoterol Fumarate 2 puff 08/16/17 22:00 08/19/17 13:20 Symbicort 80/4.5mcg - IH 2 puff BID [facility] Administration Carvedilol 6.25 mg 08/16/17 22:00 08/19/17 13:18 Coreg - PO Not Given BID [facility] Cholecalciferol 1,000 unit 08/17/17 10:00 08/19/17 13:20 Vitamin D3 - PO 1,000 unit DAILY [facility] Administration Insulin Aspart 1 vial 08/16/17 16:30 08/19/17 17:21 Novolog Vial Sliding Scale - SQ Not Given ACHS [facility] Protocol Latanoprost 1 drop 08/16/17 22:00 08/18/17 21:59 Xalatan 0.005% Eye Drops - OU 1 drop HS [facility] Administration Levothyroxine Sodium 25 mcg 08/17/17 07:00 08/19/17 06:00 Synthroid - PO Not Given DAILY@0700 [facility] Losartan Potassium 50 mg 08/17/17 10:00 08/19/17 13:18 Cozaar - PO Not Given DAILY [facility] Nitroglycerin 0.4 mg 08/16/17 16:15 Nitrostat - SL DAILY PRN SHORTNESS OF BREATH Puxrs-8-Eqhd Ethyl Esters 2 gm 08/16/17 22:00 08/19/17 13:21 Lovaza - PO Not Given BID [facility] Pantoprazole Sodium 40 mg 08/20/17 10:00 Protonix - PO DAILY [facility] Polyethylene Glycol 17 gm 08/19/17 22:00 Miralax (For Daily Use) - PO BID [facility] Sertraline HCl 25 mg 08/16/17 22:00 08/18/17 21:59 Zoloft - PO 25 mg HS [facility] Administration Spironolactone 25 mg 08/17/17 11:00 08/19/17 13:17 Aldactone - PO Not Given DAILY [facility] ASSESSMENT/PLAN: Patient is an 81 year old female with a significant past medical history of diabetes, hypertension, hyperlipidemia, aortic stenosis status post TAVR (1 year ago), who presents with 3 days of weakness, lightheadedness and dyspnea on exertion. She was recently worked up for a mitral valve replacement and was going forward with a clip versus a mitral valve replacement. Heme: Generalized weakness, lightheadedness, dyspnea on exertion Likely secondary to blood loss anemia: hmg/hct on presentation 6.3/18.7, s/p 2 units of prbc since admission She is on ASA 81mg at home, currently on hold now s/p protonix drip, now on PO Protonix EGD does not show source of bleed, will have colonoscopy on Tuesday Diet as per surgery Monitor hmg/hct daily GI following Hypertension, chronic Hypotension episodes Will add parameters to cardiac meds On Losartan, Coreq 6.25mg BID Monitor BP Endocrine: Diabetes Novolg ac/hs Monitor bloods sugars Hypothyroidism On Synthroid F.E.N. Fluids: diabetic diet today, then clears prior to colonoscopy Electrolytes: CMP in a.m. Nutrition: diabetic diet Prophylaxis: DVT: SCDs when in bed, no a/c 2/2 to anemia GI: Protonix Disposition: full code. Visit type - Emergency Visit Emergency Visit: Yes ED Registration Date: 08/16/17 Care time: The patient presented to the Emergency Department on the above date and was hospitalized for further evaluation of their emergent condition. - New Patient This patient is new to me today: No - Critical Care Critical Care patient: No - Discharge Referral Referred to [facility] No
[2017-08-19] MEDS: POLYETHYLENE GLYCOL 3350 119 GM BTL PO SCH (22:16)
[2017-08-19] MEDS: ATORVASTATIN CA 10 MG TABLET (FP) PO SCH (22:23)
[2017-08-19] MEDS: SERTRALINE HCL 25 MG TABLET (FP) PO SCH (22:23)
[2017-08-19] MEDS: LATANOPROST 0.005% OPHTH SOLN 2.5ML BOTTLE OU SCH (22:24)
[2017-08-20] MEDS: INSULIN SLIDING SCALE (NOVOLOG) 1 VIAL SQ SCH ×4 (06:23→22:09)
[2017-08-20] MEDS: LEVOTHYROXINE NA 25 MCG TABLET (FP) PO SCH (06:39)
[2017-08-20 06:57] LABS: HEMATOCRIT 23.4 % (32.4-45.2); HEMOGLOBIN 7.9 GM/dL (10.7-15.3); MCHC 33.6 g/dl (32.0-36.0); MEAN CELL VOLUME 92.1 fl (80-96); MEAN PLT VOLUME 8.2 fl (7.5-11.1); PLATELET COUNT 230 K/MM3 (134-434); RBC 2.54 M/mm3 (3.60-5.2); RDW 15.8 % (11.6-15.6)
[2017-08-20 07:19] LABS: CHLORIDE 104 mmol/L (98-107); POTASSIUM 4.2 mmol/L (3.5-5.1); SODIUM 139 mmol/L (136-145)
[2017-08-20 07:40] LABS: ALBUMIN 3.3 g/dl (3.4-5.0); ALK PHOS 40 U/L (45-117); ANION GAP 12 (8-16); BILIRUBIN,TOTAL 0.5 mg/dL (0.2-1.0); BLOOD UREA NITROGEN 31 mg/dL (7-18); CALCIUM 8.3 mg/dL (8.5-10.1); CO2 23 mmol/L (21-32); CREATININE 0.9 mg/dL (0.55-1.02); GLUCOSE,RANDOM 120 mg/dL (74-106); SGOT/AST 15 U/L (15-37); SGPT/ALT 18 U/L (12-78); TOT PROT 6.3 g/dl (6.4-8.2)
[2017-08-20] MEDS: ALBUTEROL SO4 2.5/IPRATROPIUM 0.5 INH SOL 3 ML VIAL.NEB. NEB SCH ×4 (08:49→20:40)
[2017-08-20] MEDS: MAG HYDROX/AL HYDROX/SIMETH 30 ML UNIT-DOSE CUP PO SCH ×4 (10:10→21:32)
[2017-08-20] MEDS: PANTOPRAZOLE 40 MG TABLET (FP) PO SCH (10:10)
[2017-08-20] MEDS: POLYETHYLENE GLYCOL 3350 119 GM BTL PO SCH ×2 (10:10→22:09)
[2017-08-20] MEDS: OMEGA-3 ACID ETHYL ESTERS (FATTY-ACIDS) 1 GM CAPSULE (FP) PO SCH ×2 (10:10→21:32)
[2017-08-20] MEDS: SPIRONOLACTONE 25 MG TABLET (FP) PO SCH (10:11)
[2017-08-20] MEDS: CARVEDILOL 6.25 MG TABLET (FP) PO SCH ×2 (10:11→21:32)
[2017-08-20] MEDS: BUDESONIDE/FORMETEROL FUMARATE 80/4.5 mcg INHALER IH SCH ×2 (10:11→21:33)
[2017-08-20] MEDS: CHOLECALCIFEROL (VITAMIN D3) 1,000 UNIT TABLET (FP) PO SCH (10:11)
[2017-08-20] MEDS: LOSARTAN POTASSIUM 50 MG TABLET (FP) PO SCH (10:11)
--- NOTE | 2017-08-20 11:50 | PN ---
Progress Note, Physician History of Present Illness: Planned for 1 U pRBC, denies chest pain, dyspnea, palps, orthopnea. EGD unremarkable for source of anemia or bleeding found. - Current Medication List Current Medications: Active Medications Acetaminophen (Tylenol -) 650 mg PO Q4H PRN PRN Reason: PAIN LEVEL 1-5 Al Hydroxide/Mg Hydroxide (Mylanta Oral Suspension -) 30 ml PO QID [facility] Last Admin: 08/20/17 10:10 Dose: 30 ml Albuterol/Ipratropium (Duoneb -) 1 amp NEB RQID [facility] Last Admin: 08/20/17 08:49 Dose: 1 amp Atorvastatin Calcium (Lipitor -) 10 mg PO HS [facility] Last Admin: 08/19/17 22:23 Dose: 10 mg Bisacodyl (Dulcolax -) 20 mg PO ONCE ONE Stop: 08/21/17 18:01 Budesonide/Formoterol Fumarate (Symbicort 80/4.5mcg -) 2 puff IH BID [facility] Last Admin: 08/20/17 10:11 Dose: 2 puff Carvedilol (Coreg -) 6.25 mg PO BID [facility] Last Admin: 08/20/17 10:11 Dose: Not Given Cholecalciferol (Vitamin D3 -) 1,000 unit PO DAILY [facility] Last Admin: 08/20/17 10:11 Dose: 1,000 unit Insulin Aspart (Novolog Vial Sliding Scale -) 1 vial SQ ACHS [facility] PRN Reason: Protocol Last Admin: 08/20/17 06:23 Dose: Not Given Latanoprost (Xalatan 0.005% Eye Drops -) 1 drop OU [facility] Last Admin: 08/19/17 22:24 Dose: 1 drop Levothyroxine Sodium (Synthroid -) 25 mcg PO DAILY@0700 [facility] Last Admin: 08/20/17 06:39 Dose: 25 mcg Losartan Potassium (Cozaar -) 50 mg PO DAILY [facility] Last Admin: 08/20/17 10:11 Dose: Not Given Nitroglycerin (Nitrostat -) 0.4 mg SL DAILY PRN PRN Reason: SHORTNESS OF BREATH [id number] Ethyl Esters (Lovaza -) 2 gm PO BID [facility] Last Admin: 08/20/17 10:10 Dose: 2 gm Pantoprazole Sodium (Protonix -) 40 mg PO DAILY [facility] Last Admin: 08/20/17 10:10 Dose: 40 mg Polyethylene Glycol (Miralax (For Daily Use) -) 17 gm PO BID [facility] Last Admin: 08/20/17 10:10 Dose: 17 gm Sertraline HCl (Zoloft -) 25 mg PO HS [facility] Last Admin: 08/19/17 22:23 Dose: 25 mg Spironolactone (Aldactone -) 25 mg PO DAILY [facility] Last Admin: 08/20/17 10:11 Dose: 25 mg - Objective Vital Signs: Vital Signs Temperature 98.4 F 08/20/17 09:00 Pulse Rate 88 08/20/17 09:00 Respiratory Rate 16 08/20/17 09:00 Blood Pressure 100/48 08/20/17 09:00 O2 Sat by Pulse Oximetry (%) 94 L 08/19/17 21:00 Constitutional: Yes: No Distress, Calm, Thin Neck: Yes: Supple Cardiovascular: Yes: Regular Rate and Rhythm, Murmur (2/6 SM) Respiratory: Yes: Regular, Diminished Gastrointestinal: Yes: Normal Bowel Sounds, Soft Edema: No Labs: CBC, BMP 08/20/17 05:10 08/20/17 05:10 INR, PTT INR 1.01 (0.82-1.09) 08/16/17 13:43 - ....Imaging EKG: Report Reviewed (Tele: SR) Problem List - Problems (1) Diastolic CHF due to valvular disease Code(s): I38 - ENDOCARDITIS, VALVE UNSPECIFIED; I50.30 - UNSPECIFIED DIASTOLIC ( CONGESTIVE) HEART FAILURE (2) Legally blind Code(s): H54.8 - LEGAL BLINDNESS, DEFINED IN [place] (3) Symptomatic anemia Code(s): D64.9 - ANEMIA, UNSPECIFIED (4) Aortic stenosis Code(s): I35.0 - NONRHEUMATIC AORTIC (VALVE) STENOSIS Qualifiers: Cardiac valve disease etiology: nonrheumatic Qualified Code(s): I35.0 - Nonrheumatic aortic (valve) stenosis (5) CAD (coronary artery disease) Code(s): I25.10 - ATHSCL HEART DISEASE OF [place] CORONARY ARTERY W/O ANG PCTRS Qualifiers: Coronary Disease-Associated Artery/Lesion type: [place] artery [place] vs. transplanted heart: [place] heart Associated angina: without angina Qualified Code(s): I25.10 - Atherosclerotic heart disease of [place] coronary artery without angina pectoris (6) Diabetes Code(s): E11.9 - TYPE 2 DIABETES MELLITUS WITHOUT COMPLICATIONS Qualifiers: Diabetes mellitus type: type 2 (7) GI bleed Code(s): K92.2 - GASTROINTESTINAL HEMORRHAGE, UNSPECIFIED Qualifiers: GI bleed type/associated pathology: angiodysplasia of stomach and duodenum Qualified Code(s): K31.811 - Angiodysplasia of stomach and duodenum with bleeding (8) HTN (hypertension) Code(s): I10 - ESSENTIAL (PRIMARY) HYPERTENSION Qualifiers: Hypertension type: essential hypertension Qualified Code(s): I10 - Essential (primary) hypertension (9) Hypothyroid Code(s): E03.9 - HYPOTHYROIDISM, UNSPECIFIED Qualifiers: Hypothyroidism type: unspecified Qualified Code(s): E03.9 - Hypothyroidism , unspecified (10) Mitral valve regurgitation Code(s): I34.0 - NONRHEUMATIC MITRAL (VALVE) INSUFFICIENCY Qualifiers: Cardiac valve disease etiology: nonrheumatic Qualified Code(s): I34.0 - Nonrheumatic mitral (valve) insufficiency (11) Pulmonary hypertension Code(s): I27.2 - OTHER SECONDARY PULMONARY HYPERTENSION * DO NOT USE * (12) S/P TAVR (transcatheter aortic valve replacement) Code(s): Z95.2 - PRESENCE OF PROSTHETIC HEART VALVE (13) Shortness of breath Code(s): R06.02 - SHORTNESS OF BREATH (14) Transfusion of blood during current hospitalization Code(s): [id number] - (15) Weakness Code(s): R53.1 - WEAKNESS Assessment/Plan 05/12/2017 DON: Normal LV size and fxn, mild MV prolapse with severe eccentric MR, bioAVR, mild LAE Echocardiography performed 04/21/17 revealed mild degree of concentric left ventricular hypertrophy with normal left ventricular systolic function and estimated left ventricular ejection fraction between 65-70%, left atrial dilatation measuring 4.4 cm, normal right ventricular size and function, bio- prosthetic aortic valve with no evidence of aortic valve regurgitation and acceptable trans-valvular gradient with a mean trans-valvular gradient of 15 mmHg and a peak trans-valvular gradient of 29 mmHg, thickened mitral valve leaflets moderate to severe eccentrically/anteriorly directed mitral valve regurgitation (significant change in comparison to the prior study dated August 05, 2016), mild to moderate tricuspid valve regurgitation with calculated RVSP of 56 mmHg consistent with moderate degree of pulm hypertension (significant change in comparison to the prior study dated August 05, 2016). 1. Dyspnea and fatigue referable to profound anemia, EGD negative planned for colonoscopy. I don't suspect hemolytic anemia referable to prosthetic valve regurgitation given absence of aortic regurgitation 2. Chronic mitral valve regurgitation 2. Aortic valve disease critical aortic valve stenosis post transcutaneous aortic valve replacement TAVR (23 mm Qian 3 Trans-catheter Tissue Valve) 3. Coronary artery disease 4. Diastolic left ventricular dysfunction with acute on chronic class I-II [place] [employer] classification left ventricular failure, currently compensated/euvolemic 5. Tricuspid valve regurgitation 6. HTN/HCVD 7. NIDDM 8. Hypercholesterolemia 9. History of retinal hemorrhages 10. Carotid stenosis 11. Hypothyroidism 12. Chronic obstructive pulmonary disease 13. History gastro-esophageal reflux disease 14. History of gastro-intestinal bleed 15. History of diverticular disease 16. 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 History of degenerative joint disease 18. CKD PLAN: 1. Transfuse to maintain Hgb>8.0, continue PPI, given patient is clinically euvolemic, may proceed with colonoscopy from CV standpoint, d/w Dr. Blanca 2. Continue Coreg 6.25 bid, Cozaar 50 qd, Lipitor 10 qhs, Lovaza 2 bid, and spironolactone 25 qd. ASA 81 qd d/[place] 3. Transmitral valve repair options have been discussed as outpatient
--- NOTE | 2017-08-20 12:25 | PN ---
Progress Note, Physician History of Present Illness: Feeling a little weak, otherwise OK. EGD did not shwo any source of bleeding, to get colonoscopy on Tuesday. Does note that prior to hospital was feeling some discomfort in lower abdomen, but resolved now. - Current Medication List Current Medications: Active Medications Acetaminophen (Tylenol -) 650 mg PO Q4H PRN PRN Reason: PAIN LEVEL 1-5 Al Hydroxide/Mg Hydroxide (Mylanta Oral Suspension -) 30 ml PO QID [facility] Last Admin: 08/20/17 10:10 Dose: 30 ml Albuterol/Ipratropium (Duoneb -) 1 amp NEB RQID [facility] Last Admin: 08/20/17 08:49 Dose: 1 amp Atorvastatin Calcium (Lipitor -) 10 mg PO HS [facility] Last Admin: 08/19/17 22:23 Dose: 10 mg Bisacodyl (Dulcolax -) 20 mg PO ONCE ONE Stop: 08/21/17 18:01 Budesonide/Formoterol Fumarate (Symbicort 80/4.5mcg -) 2 puff IH BID [facility] Last Admin: 08/20/17 10:11 Dose: 2 puff Carvedilol (Coreg -) 6.25 mg PO BID [facility] Last Admin: 08/20/17 10:11 Dose: Not Given Cholecalciferol (Vitamin D3 -) 1,000 unit PO DAILY [facility] Last Admin: 08/20/17 10:11 Dose: 1,000 unit Insulin Aspart (Novolog Vial Sliding Scale -) 1 vial SQ ACHS [facility] PRN Reason: Protocol Last Admin: 08/20/17 06:23 Dose: Not Given Latanoprost (Xalatan 0.005% Eye Drops -) 1 drop OU [facility] Last Admin: 08/19/17 22:24 Dose: 1 drop Levothyroxine Sodium (Synthroid -) 25 mcg PO DAILY@0700 [facility] Last Admin: 08/20/17 06:39 Dose: 25 mcg Losartan Potassium (Cozaar -) 50 mg PO DAILY [facility] Last Admin: 08/20/17 10:11 Dose: Not Given Nitroglycerin (Nitrostat -) 0.4 mg SL DAILY PRN PRN Reason: SHORTNESS OF BREATH [id number] Ethyl Esters (Lovaza -) 2 gm PO BID [facility] Last Admin: 08/20/17 10:10 Dose: 2 gm Pantoprazole Sodium (Protonix -) 40 mg PO DAILY [facility] Last Admin: 08/20/17 10:10 Dose: 40 mg Polyethylene Glycol (Miralax (For Daily Use) -) 17 gm PO BID [facility] Last Admin: 08/20/17 10:10 Dose: 17 gm Sertraline HCl (Zoloft -) 25 mg PO HS [facility] Last Admin: 08/19/17 22:23 Dose: 25 mg Spironolactone (Aldactone -) 25 mg PO DAILY [facility] Last Admin: 08/20/17 10:11 Dose: 25 mg - Objective Vital Signs: Vital Signs Temperature 98.4 F 08/20/17 09:00 Pulse Rate 88 08/20/17 09:00 Respiratory Rate 16 08/20/17 09:00 Blood Pressure 100/48 08/20/17 09:00 O2 Sat by Pulse Oximetry (%) 94 L 08/19/17 21:00 Constitutional: Yes: No Distress, Calm Eyes: Yes: Conjunctiva Clear (but pale) Neck: Yes: Supple, Trachea Midline Cardiovascular: Yes: Regular Rate and Rhythm, S1, S2. No: Murmur Respiratory: Yes: Regular, CTA Bilaterally Gastrointestinal: Yes: Normal Bowel Sounds, Soft. No: Distention, Tenderness Edema: No Neurological: Yes: Alert, Oriented Labs: CBC, BMP 08/20/17 05:10 08/20/17 05:10 INR, PTT INR 1.01 (0.82-1.09) 08/16/17 13:43 Assessment/Plan Current Active Problems GI bleed Symptomatic anemia (Acute) Cholelithiasis (Acute) Colon adenomas (Acute) Diastolic CHF due to valvular disease (Acute) Diverticulosis (Acute) Legally blind (Acute) Renal stones (Acute) -given heart disease, with hgb less than 8 will transfuse 1 unit PRBC. -to start prep tomorrow for colnoscopy on Tuesday -follow blood counts
--- NOTE | 2017-08-20 14:52 | PN ---
GI Progress Note Subjective: GI NOte: NO GI bleeding . NO adverse events following EGD. Receiving PRBCs. Have again discussed colonoscopy and Stella wants to proceed. Discussed colonoscopy with Dr Hayden who clears Stella to proceed. - Objective Vital Signs: Vital Signs Temperature 98.6 F 08/20/17 13:57 Pulse Rate 82 08/20/17 13:57 Respiratory Rate 18 08/20/17 13:57 Blood Pressure 117/56 08/20/17 13:57 O2 Sat by Pulse Oximetry (%) 94 L 08/19/17 21:00 Laboratory Tests 08/16/17 08/18/17 08/20/17 13:43 05:05 05:10 Hgb 6.3 L* D 8.2 L 7.9 L BUN Creatinine Total Bilirubin AST ALT Alkaline Phosphatase 08/20/17 05:10 Hgb BUN 31 H Creatinine 0.9 Total Bilirubin 0.5 D AST 15 ALT 18 Alkaline Phosphatase 40 L Constitutional: No Distress, Other (pale) ...Auscultate: Yes: Normoactive Bowel Sounds ...Palpate: Yes: Soft, Other (nontender) Labs: CBC, BMP 08/20/17 05:10 08/20/17 05:10 INR, PTT INR 1.01 (0.82-1.09) 08/16/17 13:43 Assessment/Plan Anemia For colonoscopy on 08/22 Problem List - Problems (1) GI bleed Code(s): K92.2 - GASTROINTESTINAL HEMORRHAGE, UNSPECIFIED Qualifiers: GI bleed type/associated pathology: angiodysplasia of stomach and duodenum Qualified Code(s): K31.811 - Angiodysplasia of stomach and duodenum with bleeding (2) Colon adenomas Code(s): D12.6 - BENIGN NEOPLASM OF COLON, UNSPECIFIED (3) Diverticulosis Code(s): K57.90 - DVRTCLOS OF INTEST, PART UNSP, W/O PERF OR ABSCESS W/O BLEED (4) Cholelithiasis Code(s): K80.20 - CALCULUS OF GALLBLADDER W/O CHOLECYSTITIS W/O OBSTRUCTION (5) Renal stones Code(s): N20.0 - CALCULUS OF KIDNEY (6) Legally blind Code(s): H54.8 - LEGAL BLINDNESS, DEFINED IN [place]
--- NOTE | 2017-08-20 15:28 | PN ---
GI Progress Note Subjective: Disregard this note. It was started in error. - Objective Vital Signs: Vital Signs Temperature 98.6 F 08/20/17 13:57 Pulse Rate 82 08/20/17 13:57 Respiratory Rate 18 08/20/17 13:57 Blood Pressure 117/56 08/20/17 13:57 O2 Sat by Pulse Oximetry (%) 94 L 08/19/17 21:00 Laboratory Tests 08/16/17 08/17/17 08/18/17 13:43 07:45 05:05 WBC 9.7 Hgb 6.3 L* D 8.2 L BUN Creatinine Total Bilirubin AST ALT Alkaline Phosphatase 08/20/17 08/20/17 05:10 05:10 WBC 7.0 Hgb 7.9 L BUN 31 H Creatinine 0.9 Total Bilirubin 0.5 D AST 15 ALT 18 Alkaline Phosphatase 40 L Labs: CBC, BMP 08/20/17 05:10 08/20/17 05:10 INR, PTT INR 1.01 (0.82-1.09) 08/16/17 13:43 Problem List - Problems (1) GI bleed Code(s): K92.2 - GASTROINTESTINAL HEMORRHAGE, UNSPECIFIED Qualifiers: GI bleed type/associated pathology: angiodysplasia of stomach and duodenum Qualified Code(s): K31.811 - Angiodysplasia of stomach and duodenum with bleeding (2) Colon adenomas Code(s): D12.6 - BENIGN NEOPLASM OF COLON, UNSPECIFIED (3) Diverticulosis Code(s): K57.90 - DVRTCLOS OF INTEST, PART UNSP, W/O PERF OR ABSCESS W/O BLEED (4) Cholelithiasis Code(s): K80.20 - CALCULUS OF GALLBLADDER W/O CHOLECYSTITIS W/O OBSTRUCTION (5) Renal stones Code(s): N20.0 - CALCULUS OF KIDNEY (6) Legally blind Code(s): H54.8 - LEGAL BLINDNESS, DEFINED IN [place]
[2017-08-20] MEDS: ATORVASTATIN CA 10 MG TABLET (FP) PO SCH (21:32)
[2017-08-20] MEDS: SERTRALINE HCL 25 MG TABLET (FP) PO SCH (21:32)
[2017-08-20] MEDS: LATANOPROST 0.005% OPHTH SOLN 2.5ML BOTTLE OU SCH (21:33)
[2017-08-20] MEDS: NYSTATIN 100,000 UNIT/GM TOPICAL CREAM 15 GM TUBE TP SCH (22:12)
[2017-08-21] MEDS: INSULIN SLIDING SCALE (NOVOLOG) 1 VIAL SQ SCH ×4 (06:15→22:07)
[2017-08-21] MEDS: LEVOTHYROXINE NA 25 MCG TABLET (FP) PO SCH (06:15)
[2017-08-21 06:33] LABS: BASO % 0.8 % (0-2.0); EOS % 2.3 % (0-4.5); HEMATOCRIT 24.5 % (32.4-45.2); HEMOGLOBIN 8.5 GM/dL (10.7-15.3); LYMPH % 25.6 % (8-40); MCH 31.6 pg (25.7-33.7); MCHC 34.8 g/dl (32.0-36.0); MEAN CELL VOLUME 90.9 fl (80-96); MEAN PLT VOLUME 8.5 fl (7.5-11.1); MONO % 12.1 % (3.8-10.2); NEUT % 59.2 % (42.8-82.8); PLATELET COUNT 225 K/MM3 (134-434); RDW 15.6 % (11.6-15.6); WHITE BLOOD COUNT 7.6 K/mm3 (4.0-10.0)
[2017-08-21 06:48] LABS: ALBUMIN 3.4 g/dl (3.4-5.0); ANION GAP 6 (8-16); BLOOD UREA NITROGEN 41 mg/dL (7-18); CALCIUM 7.6 mg/dL (8.5-10.1); CHLORIDE 103 mmol/L (98-107); CO2 27 mmol/L (21-32); GLUCOSE,RANDOM 145 mg/dL (74-106); POTASSIUM 4.4 mmol/L (3.5-5.1); SODIUM 136 mmol/L (136-145)
[2017-08-21 06:53] LABS: ALK PHOS 40 U/L (45-117); BILIRUBIN,TOTAL 0.9 mg/dL (0.2-1.0); CREATININE 0.9 mg/dL (0.55-1.02); SGOT/AST 13 U/L (15-37); SGPT/ALT 14 U/L (12-78); TOT PROT 6.1 g/dl (6.4-8.2)
[2017-08-21] MEDS: ALBUTEROL SO4 2.5/IPRATROPIUM 0.5 INH SOL 3 ML VIAL.NEB. NEB SCH ×3 (07:59→15:38)
[2017-08-21] MEDS ORDERED: PT OWN MED DRAWER 7, Y5N ONE ×2 (08:38→22:11)
[2017-08-21] MEDS ORDERED: PEG3350/SOD SULF,BICARB,CL/KCL 4,000 ML SOLN.RECON PO ONE (09:00)
[2017-08-21] MEDS: OMEGA-3 ACID ETHYL ESTERS (FATTY-ACIDS) 1 GM CAPSULE (FP) PO SCH ×2 (09:51→22:22)
[2017-08-21] MEDS: CARVEDILOL 6.25 MG TABLET (FP) PO SCH ×2 (09:51→22:21)
[2017-08-21] MEDS: CHOLECALCIFEROL (VITAMIN D3) 1,000 UNIT TABLET (FP) PO SCH (09:51)
[2017-08-21] MEDS: SPIRONOLACTONE 25 MG TABLET (FP) PO SCH (09:51)
[2017-08-21] MEDS: PANTOPRAZOLE 40 MG TABLET (FP) PO SCH (09:52)
[2017-08-21] MEDS: LOSARTAN POTASSIUM 50 MG TABLET (FP) PO SCH (09:52)
[2017-08-21] MEDS: BUDESONIDE/FORMETEROL FUMARATE 80/4.5 mcg INHALER IH SCH ×2 (09:53→22:21)
[2017-08-21] MEDS: MAG HYDROX/AL HYDROX/SIMETH 30 ML UNIT-DOSE CUP PO SCH ×4 (09:53→22:12)
[2017-08-21] MEDS: POLYETHYLENE GLYCOL 3350 119 GM BTL PO SCH ×2 (09:53→22:13)
[2017-08-21] MEDS: NYSTATIN 100,000 UNIT/GM TOPICAL CREAM 15 GM TUBE TP SCH ×2 (09:54→22:21)
--- NOTE | 2017-08-21 10:33 | PN ---
Progress Note, Physician Chief Complaint: Pt sitting in chair in no acute distress. Doing bowel prep. Otherwise, without any complaints. Denies chest pain, sob, n/v/d. - Current Medication List Current Medications: Active Medications Acetaminophen (Tylenol -) 650 mg PO Q4H PRN PRN Reason: PAIN LEVEL 1-5 Al Hydroxide/Mg Hydroxide (Mylanta Oral Suspension -) 30 ml PO QID [facility] Last Admin: 08/21/17 09:53 Dose: Not Given Albuterol/Ipratropium (Duoneb -) 1 amp NEB RQID [facility] Last Admin: 08/21/17 07:59 Dose: 1 amp Atorvastatin Calcium (Lipitor -) 10 mg PO HS [facility] Last Admin: 08/20/17 21:32 Dose: 10 mg Bisacodyl (Dulcolax -) 20 mg PO ONCE ONE Stop: 08/21/17 18:01 Budesonide/Formoterol Fumarate (Symbicort 80/4.5mcg -) 2 puff IH BID [facility] Last Admin: 08/21/17 09:53 Dose: 2 puff Carvedilol (Coreg -) 6.25 mg PO BID [facility] Last Admin: 08/21/17 09:51 Dose: 6.25 mg Cholecalciferol (Vitamin D3 -) 1,000 unit PO DAILY [facility] Last Admin: 08/21/17 09:51 Dose: 1,000 unit Insulin Aspart (Novolog Vial Sliding Scale -) 1 vial SQ ACHS [facility] PRN Reason: Protocol Last Admin: 08/21/17 06:15 Dose: Not Given Latanoprost (Xalatan 0.005% Eye Drops -) 1 drop OU [facility] Last Admin: 08/20/17 21:33 Dose: 1 drop Levothyroxine Sodium (Synthroid -) 25 mcg PO DAILY@0700 [facility] Last Admin: 08/21/17 06:15 Dose: 25 mcg Losartan Potassium (Cozaar -) 50 mg PO DAILY [facility] Last Admin: 08/21/17 09:52 Dose: 50 mg Nitroglycerin (Nitrostat -) 0.4 mg SL DAILY PRN PRN Reason: SHORTNESS OF BREATH Nystatin (Mycostatin Cream -) 1 applic TP BID [facility] Last Admin: 08/21/17 09:54 Dose: Not Given Vxeij-6-Vayi Ethyl Esters (Lovaza -) 2 gm PO BID [facility] Last Admin: 08/21/17 09:51 Dose: 2 gm Pantoprazole Sodium (Protonix -) 40 mg PO DAILY [facility] Last Admin: 08/21/17 09:52 Dose: 40 mg Polyethylene Glycol (Miralax (For Daily Use) -) 17 gm PO BID [facility] Last Admin: 08/21/17 09:53 Dose: Not Given Sertraline HCl (Zoloft -) 25 mg PO HS [facility] Last Admin: 08/20/17 21:32 Dose: 25 mg Spironolactone (Aldactone -) 25 mg PO DAILY [facility] Last Admin: 08/21/17 09:51 Dose: 25 mg - Objective Vital Signs: Vital Signs Temperature 97.9 F 08/20/17 22:00 Pulse Rate 80 08/20/17 22:00 Respiratory Rate 18 08/20/17 22:00 Blood Pressure 121/68 08/20/17 22:00 O2 Sat by Pulse Oximetry (%) 94 L 08/20/17 20:32 Constitutional: Yes: Well Nourished, No Distress, Calm Cardiovascular: Yes: Regular Rate and Rhythm, Murmur Respiratory: Yes: Regular, CTA Bilaterally, Diminished. No: Rales, Stridor, Tachypnea Gastrointestinal: Yes: Normal Bowel Sounds, Soft. No: Distention, Tenderness Genitourinary: Yes: WNL Edema: No Neurological: Yes: WNL, Alert, Oriented Psychiatric: Yes: WNL, Alert, Oriented Labs: CBC, BMP 08/21/17 05:05 08/21/17 05:05 INR, PTT INR 1.01 (0.82-1.09) 08/16/17 13:43 Problem List - Problems (1) GI bleed Assessment/Plan: H/h stable today S/p EGD, source of bleed unidentified Plan for colonoscopy 08/22 NPO after [facility] following Code(s): K92.2 - GASTROINTESTINAL HEMORRHAGE, UNSPECIFIED Qualifiers: GI bleed type/associated pathology: angiodysplasia of stomach and duodenum Qualified Code(s): K31.811 - Angiodysplasia of stomach and duodenum with bleeding (2) Symptomatic anemia Assessment/Plan: Secondary to GI bleed, possibly lower gi S/p 3 blood transfusions, h/h stable, hemodynamically stable, pt reports improvement of sob/weakness will monitor Code(s): D64.9 - ANEMIA, UNSPECIFIED (3) Diastolic CHF due to valvular disease Assessment/Plan: chronic [place]HA class I-II left ventricular failure currently compensated/euvolemic continue aldactone and adequate bp control low na diet Code(s): I38 - ENDOCARDITIS, VALVE UNSPECIFIED; I50.30 - UNSPECIFIED DIASTOLIC ( CONGESTIVE) HEART FAILURE (4) Mitral valve regurgitation Assessment/Plan: being evaluated for percutaneous mitral valve replacement vs MitraClip follow up outpt with cardiology once resolution of anemia/gib Code(s): I34.0 - NONRHEUMATIC MITRAL (VALVE) INSUFFICIENCY Qualifiers: Cardiac valve disease etiology: nonrheumatic Qualified Code(s): I34.0 - Nonrheumatic mitral (valve) insufficiency (5) Aortic stenosis Assessment/Plan: resolved s/p TAVR Code(s): I35.0 - NONRHEUMATIC AORTIC (VALVE) STENOSIS Qualifiers: Cardiac valve disease etiology: nonrheumatic Qualified Code(s): I35.0 - Nonrheumatic aortic (valve) stenosis (6) HTN (hypertension) Assessment/Plan: controlled continue losartan, carvedilol, aldactone per parameters Code(s): I10 - ESSENTIAL (PRIMARY) HYPERTENSION Qualifiers: Hypertension type: essential hypertension Qualified Code(s): I10 - Essential (primary) hypertension (7) Hypothyroid Assessment/Plan: chronic continue synthroid Code(s): E03.9 - HYPOTHYROIDISM, UNSPECIFIED Qualifiers: Hypothyroidism type: unspecified Qualified Code(s): E03.9 - Hypothyroidism , unspecified (8) Hyperlipidemia Assessment/Plan: Controlled Continue lipitor, lovaza continue lifestyle modifications Code(s): E78.5 - HYPERLIPIDEMIA, UNSPECIFIED (9) GERD (gastroesophageal reflux disease) Assessment/Plan: Stable Continue protonix Code(s): K21.9 - GASTRO-ESOPHAGEAL REFLUX DISEASE WITHOUT ESOPHAGITIS Qualifiers: Esophagitis presence: without esophagitis Qualified Code(s): K21.9 - Gastro -esophageal reflux disease without esophagitis (10) Diabetes Assessment/Plan: controlled BGM Insulin siding scale holding metformin, januvia until after colonoscopy Code(s): E11.9 - TYPE 2 DIABETES MELLITUS WITHOUT COMPLICATIONS Qualifiers: Diabetes mellitus type: type 2 Diabetes mellitus complication status: with ophthalmic complications Diabetes mellitus complication detail: with diabetic retinopathy Diabetes mellitus rn long term care insulin use: without rn long term care use (11) CAD (coronary artery disease) Assessment/Plan: Stable Holding aspirin in the setting of GIB Code(s): I25.10 - ATHSCL HEART DISEASE OF [place] CORONARY ARTERY W/O ANG PCTRS Qualifiers: Coronary Disease-Associated Artery/Lesion type: [place] artery [place] vs. transplanted heart: [place] heart Associated angina: without angina Qualified Code(s): I25.10 - Atherosclerotic heart disease of [place] coronary artery without angina pectoris (12) COPD (chronic obstructive pulmonary disease) Assessment/Plan: chronic continue duonebs, symbicort Code(s): J44.9 - CHRONIC OBSTRUCTIVE PULMONARY DISEASE, UNSPECIFIED Qualifiers: COPD type: unspecified COPD Qualified Code(s): J44.9 - Chronic obstructive pulmonary disease, unspecified
--- NOTE | 2017-08-21 13:30 | PN ---
Progress Note, Physician History of Present Illness: Received 1 U pRBC with appropriate Hgb increase, denies chest pain, dyspnea, palps, orthopnea. EGD unremarkable for source of anemia or bleeding found, undergoing prep for colonoscopy. - Current Medication List Current Medications: Active Medications Acetaminophen (Tylenol -) 650 mg PO Q4H PRN PRN Reason: PAIN LEVEL 1-5 Al Hydroxide/Mg Hydroxide (Mylanta Oral Suspension -) 30 ml PO QID ON LICENSE OF [facility] Last Admin: 08/21/17 13:01 Dose: Not Given Albuterol/Ipratropium (Duoneb -) 1 amp NEB RQID ON LICENSE OF [facility] Last Admin: 08/21/17 11:58 Dose: 1 amp Atorvastatin Calcium (Lipitor -) 10 mg PO HS ON LICENSE OF [facility] Last Admin: 08/20/17 21:32 Dose: 10 mg Bisacodyl (Dulcolax -) 20 mg PO ONCE ONE Stop: 08/21/17 18:01 Budesonide/Formoterol Fumarate (Symbicort 80/4.5mcg -) 2 puff IH BID ON LICENSE OF [facility] Last Admin: 08/21/17 09:53 Dose: 2 puff Carvedilol (Coreg -) 6.25 mg PO BID ON LICENSE OF [facility] Last Admin: 08/21/17 09:51 Dose: 6.25 mg Cholecalciferol (Vitamin D3 -) 1,000 unit PO DAILY ON LICENSE OF [facility] Last Admin: 08/21/17 09:51 Dose: 1,000 unit Insulin Aspart (Novolog Vial Sliding Scale -) 1 vial SQ ACHS ON LICENSE OF [facility] PRN Reason: Protocol Last Admin: 08/21/17 13:01 Dose: Not Given Latanoprost (Xalatan 0.005% Eye Drops -) 1 drop OU HS ON LICENSE OF [facility] Last Admin: 08/20/17 21:33 Dose: 1 drop Levothyroxine Sodium (Synthroid -) 25 mcg PO DAILY@0700 ON LICENSE OF [facility] Last Admin: 08/21/17 06:15 Dose: 25 mcg Losartan Potassium (Cozaar -) 50 mg PO DAILY ON LICENSE OF [facility] Last Admin: 08/21/17 09:52 Dose: 50 mg Nitroglycerin (Nitrostat -) 0.4 mg SL DAILY PRN PRN Reason: SHORTNESS OF BREATH Nystatin (Mycostatin Cream -) 1 applic TP BID ON LICENSE OF [facility] Last Admin: 08/21/17 09:54 Dose: Not Given Cgwge-6-Aagn Ethyl Esters (Lovaza -) 2 gm PO BID ON LICENSE OF [facility] Last Admin: 08/21/17 09:51 Dose: 2 gm Pantoprazole Sodium (Protonix -) 40 mg PO DAILY ON LICENSE OF [facility] Last Admin: 08/21/17 09:52 Dose: 40 mg Polyethylene Glycol (Miralax (For Daily Use) -) 17 gm PO BID ON LICENSE OF [facility] Last Admin: 08/21/17 09:53 Dose: Not Given Sertraline HCl (Zoloft -) 25 mg PO [facility] Last Admin: 08/20/17 21:32 Dose: 25 mg Spironolactone (Aldactone -) 25 mg PO DAILY ON LICENSE OF [facility] Last Admin: 08/21/17 09:51 Dose: 25 mg - Objective Vital Signs: Vital Signs Temperature 98 F 08/21/17 10:00 Pulse Rate 82 08/21/17 10:00 Respiratory Rate 18 08/21/17 10:00 Blood Pressure 118/62 08/21/17 10:00 O2 Sat by Pulse Oximetry (%) 96 08/21/17 10:00 Constitutional: Yes: No Distress, Calm Neck: Yes: Supple Cardiovascular: Yes: Regular Rate and Rhythm, Murmur (3/6 SM) Respiratory: Yes: Regular, Diminished Gastrointestinal: Yes: Soft, Hypoactive Bowel Sounds Edema: No Labs: CBC, BMP 08/21/17 05:05 08/21/17 05:05 INR, PTT INR 1.01 (0.82-1.09) 08/16/17 13:43 - ....Imaging EKG: Report Reviewed (Tele: SR) Problem List - Problems (1) Diastolic CHF due to valvular disease Code(s): I38 - ENDOCARDITIS, VALVE UNSPECIFIED; I50.30 - UNSPECIFIED DIASTOLIC ( CONGESTIVE) HEART FAILURE (2) Legally blind Code(s): H54.8 - LEGAL BLINDNESS, DEFINED IN [place] (3) Symptomatic anemia Code(s): D64.9 - ANEMIA, UNSPECIFIED (4) Aortic stenosis Code(s): I35.0 - NONRHEUMATIC AORTIC (VALVE) STENOSIS Qualifiers: Cardiac valve disease etiology: nonrheumatic Qualified Code(s): I35.0 - Nonrheumatic aortic (valve) stenosis (5) CAD (coronary artery disease) Code(s): I25.10 - ATHSCL HEART DISEASE OF [place] CORONARY ARTERY W/O ANG PCTRS Qualifiers: Coronary Disease-Associated Artery/Lesion type: [place] artery [place] vs. transplanted heart: [place] heart Associated angina: without angina Qualified Code(s): I25.10 - Atherosclerotic heart disease of [place] coronary artery without angina pectoris (6) Diabetes Code(s): E11.9 - TYPE 2 DIABETES MELLITUS WITHOUT COMPLICATIONS Qualifiers: Diabetes mellitus type: type 2 (7) GI bleed Code(s): K92.2 - GASTROINTESTINAL HEMORRHAGE, UNSPECIFIED Qualifiers: GI bleed type/associated pathology: angiodysplasia of stomach and duodenum Qualified Code(s): K31.811 - Angiodysplasia of stomach and duodenum with bleeding (8) HTN (hypertension) Code(s): I10 - ESSENTIAL (PRIMARY) HYPERTENSION Qualifiers: Hypertension type: essential hypertension Qualified Code(s): I10 - Essential (primary) hypertension (9) Hypothyroid Code(s): E03.9 - HYPOTHYROIDISM, UNSPECIFIED Qualifiers: Hypothyroidism type: unspecified Qualified Code(s): E03.9 - Hypothyroidism , unspecified (10) Mitral valve regurgitation Code(s): I34.0 - NONRHEUMATIC MITRAL (VALVE) INSUFFICIENCY Qualifiers: Cardiac valve disease etiology: nonrheumatic Qualified Code(s): I34.0 - Nonrheumatic mitral (valve) insufficiency (11) Pulmonary hypertension Code(s): I27.2 - OTHER SECONDARY PULMONARY HYPERTENSION * DO NOT USE * (12) S/P TAVR (transcatheter aortic valve replacement) Code(s): Z95.2 - PRESENCE OF PROSTHETIC HEART VALVE (13) Shortness of breath Code(s): R06.02 - SHORTNESS OF BREATH (14) Transfusion of blood during current hospitalization Code(s): ERS0339 - (15) Weakness Code(s): R53.1 - WEAKNESS Assessment/Plan 05/12/2017 DON: Normal LV size and fxn, mild MV prolapse with severe eccentric MR, bioAVR, mild LAE Echocardiography performed 04/21/17 revealed mild degree of concentric left ventricular hypertrophy with normal left ventricular systolic function and estimated left ventricular ejection fraction between 65-70%, left atrial dilatation measuring 4.4 cm, normal right ventricular size and function, bio- prosthetic aortic valve with no evidence of aortic valve regurgitation and acceptable trans-valvular gradient with a mean trans-valvular gradient of 15 mmHg and a peak trans-valvular gradient of 29 mmHg, thickened mitral valve leaflets moderate to severe eccentrically/anteriorly directed mitral valve regurgitation (significant change in comparison to the prior study dated August 05, 2016), mild to moderate tricuspid valve regurgitation with calculated RVSP of 56 mmHg consistent with moderate degree of pulm hypertension (significant change in comparison to the prior study dated August 05, 2016). 1. Dyspnea and fatigue referable to profound anemia, EGD negative planned for colonoscopy. I don't suspect hemolytic anemia referable to prosthetic valve regurgitation given absence of aortic regurgitation 2. Chronic mitral valve regurgitation 3. Aortic valve disease critical aortic valve stenosis post transcutaneous aortic valve replacement TAVR (23 mm Qian 3 Trans-catheter Tissue Valve) 4. Coronary artery disease 5. Diastolic left ventricular dysfunction with acute on chronic class I-II [place] [employer] classification left ventricular failure, currently compensated/euvolemic 6. Tricuspid valve regurgitation 7. HTN/HCVD 8. NIDDM 9. Hypercholesterolemia 10. History of retinal hemorrhages 11. Carotid stenosis 12. Hypothyroidism 13. Chronic obstructive pulmonary disease 14. History gastro-esophageal reflux disease 15. History of gastro-intestinal bleed 16. History of diverticular disease 17. History of degenerative lumbosacral disc disease with low back pain syndrome 18. History of degenerative joint disease 19. CKD PLAN: 1. Transfuse to maintain Hgb>8.0, continue PPI, given patient is clinically euvolemic, may proceed with colonoscopy from CV standpoint, d/w Dr. Blanca 2. Continue Coreg 6.25 bid, Cozaar 50 qd, Lipitor 10 qhs, Lovaza 2 bid, and spironolactone 25 qd. ASA 81 qd d/[place] 3. Transmitral valve repair options have been discussed as outpatient
--- NOTE | 2017-08-21 14:37 | PN ---
GI Progress Note Subjective: GI NOte: Has completed 1/2 of the Golytely prep. Has had minimal results so far. Will be getting dulcolax later. - Objective Vital Signs: Vital Signs Temperature 98.2 F 08/21/17 13:45 Pulse Rate 73 08/21/17 13:45 Respiratory Rate 18 08/21/17 13:45 Blood Pressure 98/54 08/21/17 13:45 O2 Sat by Pulse Oximetry (%) 96 08/21/17 10:00 Laboratory Tests 08/21/17 08/21/17 05:05 05:05 Hgb 8.5 L Potassium 4.4 BUN 41 H Creatinine 0.9 Total Bilirubin 0.9 D Constitutional: No Distress ...Auscultate: Yes: Hyperactive Bowel Sounds ...Palpate: Yes: Soft, Other (nontender) Labs: CBC, BMP 08/21/17 05:05 08/21/17 05:05 INR, PTT INR 1.01 (0.82-1.09) 08/16/17 13:43 Problem List - Problems (1) GI bleed Assessment/Plan: For colonoscopy tomorrow to determine source of anemia. Anticipate recurrent adenomas. Code(s): K92.2 - GASTROINTESTINAL HEMORRHAGE, UNSPECIFIED Qualifiers: Qualified Code(s): K31.811 - Angiodysplasia of stomach and duodenum with bleeding (2) Colon adenomas Code(s): D12.6 - BENIGN NEOPLASM OF COLON, UNSPECIFIED (3) Diverticulosis Code(s): K57.90 - DVRTCLOS OF INTEST, PART UNSP, W/O PERF OR ABSCESS W/O BLEED (4) Cholelithiasis Code(s): K80.20 - CALCULUS OF GALLBLADDER W/O CHOLECYSTITIS W/O OBSTRUCTION (5) Renal stones Code(s): N20.0 - CALCULUS OF KIDNEY (6) Legally blind Code(s): H54.8 - LEGAL BLINDNESS, DEFINED IN [place]
[2017-08-21] MEDS: BISACODYL 5 MG TABLET.DR (FP) PO ONE ×2 (16:56→17:03)
[2017-08-21] MEDS: ATORVASTATIN CA 10 MG TABLET (FP) PO SCH (22:21)
[2017-08-21] MEDS: SERTRALINE HCL 25 MG TABLET (FP) PO SCH (22:21)
[2017-08-21] MEDS: LATANOPROST 0.005% OPHTH SOLN 2.5ML BOTTLE OU SCH (22:21)
[2017-08-22] MEDS ORDERED: SODIUM CHLORIDE 250 ML IV STA (05:37)
[2017-08-22] MEDS: SODIUM CHLORIDE 1,000 ML IV SCH (06:15)
[2017-08-22] MEDS: INSULIN SLIDING SCALE (NOVOLOG) 1 VIAL SQ SCH ×4 (06:16→21:52)
[2017-08-22] MEDS: LEVOTHYROXINE NA 25 MCG TABLET (FP) PO SCH (06:16)
[2017-08-22 07:14] LABS: INR 1.06 (0.82-1.09)
[2017-08-22 07:21] LABS: ANION GAP 11 (8-16); BLOOD UREA NITROGEN 32 mg/dL (7-18); CALCIUM 8.1 mg/dL (8.5-10.1); CHLORIDE 103 mmol/L (98-107); CO2 25 mmol/L (21-32); CREATININE 0.8 mg/dL (0.55-1.02); GLUCOSE,RANDOM 130 mg/dL (74-106); MAGNESIUM 2.7 mg/dL (1.8-2.4); PHOSPHOROUS 2.8 mg/dL (2.5-4.9); POTASSIUM 3.9 mmol/L (3.5-5.1); SODIUM 139 mmol/L (136-145)
[2017-08-22 07:25] LABS: BASO % 0.5 % (0-2.0); EOS % 3.4 % (0-4.5); HEMATOCRIT 23.2 % (32.4-45.2); HEMOGLOBIN 7.9 GM/dL (10.7-15.3); MCH 31.1 pg (25.7-33.7); MCHC 33.9 g/dl (32.0-36.0); MEAN CELL VOLUME 91.7 fl (80-96); MEAN PLT VOLUME 8.1 fl (7.5-11.1); MONO % 11.6 % (3.8-10.2); NEUT % 59.5 % (42.8-82.8); PLATELET COUNT 228 K/MM3 (134-434); RBC 2.53 M/mm3 (3.60-5.2); RDW 15.6 % (11.6-15.6); WHITE BLOOD COUNT 7.2 K/mm3 (4.0-10.0)
--- NOTE | 2017-08-22 09:37 | PN ---
Progress Note, Physician Chief Complaint: Pt lying in bed in no acute distress. Otherwise, without any complaints. Denies chest pain, sob, n/v/d. - Current Medication List Current Medications: Active Medications Acetaminophen (Tylenol -) 650 mg PO Q4H PRN PRN Reason: PAIN LEVEL 1-5 Al Hydroxide/Mg Hydroxide (Mylanta Oral Suspension -) 30 ml PO QID [facility] Last Admin: 08/21/17 22:12 Dose: Not Given Atorvastatin Calcium (Lipitor -) 10 mg PO HS [facility] Last Admin: 08/21/17 22:21 Dose: 10 mg Budesonide/Formoterol Fumarate (Symbicort 80/4.5mcg -) 2 puff IH BID [facility] Last Admin: 08/21/17 22:21 Dose: 2 puff Carvedilol (Coreg -) 6.25 mg PO BID [facility] Last Admin: 08/21/17 22:21 Dose: 6.25 mg Cholecalciferol (Vitamin D3 -) 1,000 unit PO DAILY [facility] Last Admin: 08/21/17 09:51 Dose: 1,000 unit Sodium Chloride (Normal Saline -) 1,000 mls @ 75 mls/hr IV ASDIR [facility] Last Admin: 08/22/17 06:15 Dose: 75 mls/hr Insulin Aspart (Novolog Vial Sliding Scale -) 1 vial SQ ACHS [facility] PRN Reason: Protocol Last Admin: 08/22/17 06:16 Dose: Not Given Latanoprost (Xalatan 0.005% Eye Drops -) 1 drop OU HS [facility] Last Admin: 08/21/17 22:21 Dose: 1 drop Levothyroxine Sodium (Synthroid -) 25 mcg PO DAILY@0700 [facility] Last Admin: 08/22/17 06:16 Dose: Not Given Losartan Potassium (Cozaar -) 50 mg PO DAILY [facility] Last Admin: 08/21/17 09:52 Dose: 50 mg Nitroglycerin (Nitrostat -) 0.4 mg SL DAILY PRN PRN Reason: SHORTNESS OF BREATH Nystatin (Mycostatin Cream -) 1 applic TP BID [facility] Last Admin: 08/21/17 22:21 Dose: 1 applic Pczrh-1-Pasv Ethyl Esters (Lovaza -) 2 gm PO BID [facility] Last Admin: 08/21/17 22:22 Dose: 2 gm Pantoprazole Sodium (Protonix -) 40 mg PO DAILY [facility] Last Admin: 08/21/17 09:52 Dose: 40 mg Polyethylene Glycol (Miralax (For Daily Use) -) 17 gm PO BID [facility] Last Admin: 08/21/17 22:13 Dose: Not Given Sertraline HCl (Zoloft -) 25 mg PO HS [facility] Last Admin: 08/21/17 22:21 Dose: 25 mg Spironolactone (Aldactone -) 25 mg PO DAILY [facility] Last Admin: 08/21/17 09:51 Dose: 25 mg - Objective Vital Signs: Vital Signs Temperature 98 F 08/22/17 05:29 Pulse Rate 75 08/22/17 06:19 Respiratory Rate 18 08/22/17 06:19 Blood Pressure 96/48 08/22/17 06:19 O2 Sat by Pulse Oximetry (%) 96 08/21/17 20:16 Constitutional: Yes: Well Nourished, No Distress Cardiovascular: Yes: Regular Rate and Rhythm, Murmur Respiratory: Yes: WNL, Regular, CTA Bilaterally. No: Rales, Rhonchi, SOB, Tachypnea, Wheezes Gastrointestinal: Yes: Normal Bowel Sounds, Soft, Abdomen, Obese. No: Distention, Tenderness Genitourinary: Yes: WNL Edema: No Neurological: Yes: WNL, Alert, Oriented Psychiatric: Yes: WNL, Alert, Oriented Labs: CBC, BMP 08/22/17 06:25 08/22/17 06:25 INR, PTT INR 1.06 (0.82-1.09) 08/22/17 06:25 Problem List - Problems (1) GI bleed Code(s): K92.2 - GASTROINTESTINAL HEMORRHAGE, UNSPECIFIED Qualifiers: GI bleed type/associated pathology: angiodysplasia of stomach and duodenum Qualified Code(s): K31.811 - Angiodysplasia of stomach and duodenum with bleeding (2) Symptomatic anemia Code(s): D64.9 - ANEMIA, UNSPECIFIED (3) Diastolic CHF due to valvular disease Code(s): I38 - ENDOCARDITIS, VALVE UNSPECIFIED; I50.30 - UNSPECIFIED DIASTOLIC ( CONGESTIVE) HEART FAILURE (4) Mitral valve regurgitation Code(s): I34.0 - NONRHEUMATIC MITRAL (VALVE) INSUFFICIENCY Qualifiers: Cardiac valve disease etiology: nonrheumatic Qualified Code(s): I34.0 - Nonrheumatic mitral (valve) insufficiency (5) Aortic stenosis Code(s): I35.0 - NONRHEUMATIC AORTIC (VALVE) STENOSIS Qualifiers: Cardiac valve disease etiology: nonrheumatic Qualified Code(s): I35.0 - Nonrheumatic aortic (valve) stenosis (6) HTN (hypertension) Code(s): I10 - ESSENTIAL (PRIMARY) HYPERTENSION Qualifiers: Hypertension type: essential hypertension Qualified Code(s): I10 - Essential (primary) hypertension (7) Hypothyroid Code(s): E03.9 - HYPOTHYROIDISM, UNSPECIFIED Qualifiers: Hypothyroidism type: unspecified Qualified Code(s): E03.9 - Hypothyroidism , unspecified (8) Hyperlipidemia Code(s): E78.5 - HYPERLIPIDEMIA, UNSPECIFIED (9) GERD (gastroesophageal reflux disease) Code(s): K21.9 - GASTRO-ESOPHAGEAL REFLUX DISEASE WITHOUT ESOPHAGITIS Qualifiers: Esophagitis presence: without esophagitis Qualified Code(s): K21.9 - Gastro -esophageal reflux disease without esophagitis (10) Diabetes Code(s): E11.9 - TYPE 2 DIABETES MELLITUS WITHOUT COMPLICATIONS Qualifiers: Diabetes mellitus type: type 2 Diabetes mellitus complication status: with ophthalmic complications Diabetes mellitus complication detail: with diabetic retinopathy Diabetes mellitus extermination inspector insulin use: without extermination inspector use (11) CAD (coronary artery disease) Code(s): I25.10 - ATHSCL HEART DISEASE OF [place] CORONARY ARTERY W/O ANG PCTRS Qualifiers: Coronary Disease-Associated Artery/Lesion type: [place] artery [place] vs. transplanted heart: [place] heart Associated angina: without angina Qualified Code(s): I25.10 - Atherosclerotic heart disease of [place] coronary artery without angina pectoris (12) COPD (chronic obstructive pulmonary disease) Code(s): J44.9 - CHRONIC OBSTRUCTIVE PULMONARY DISEASE, UNSPECIFIED Qualifiers: COPD type: unspecified COPD Qualified Code(s): J44.9 - Chronic obstructive pulmonary disease, unspecified Assessment/Plan (1) GI bleed Assessment/Plan: H/h drop today <8, will transfuse 1 unit prbcs S/p EGD, source of bleed unidentified colonoscopy today without complication, diverticulosis, otherwise source of bleed unidentified meckels scan ordered, 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 bleeding full liquids GI following Code(s): K92.2 - GASTROINTESTINAL HEMORRHAGE, UNSPECIFIED Qualifiers: GI bleed type/associated pathology: angiodysplasia of stomach and duodenum Qualified Code(s): K31.811 - Angiodysplasia of stomach and duodenum with bleeding (2) Symptomatic anemia Assessment/Plan: Secondary to GI bleed, possibly lower gi S/p 3 blood transfusions, h/h drop today, hypotensive, pt reports weakness otherwise asymptomatic Transfuse 1unit prbcs today will monitor Code(s): D64.9 - ANEMIA, UNSPECIFIED (3) Diastolic CHF due to valvular disease Assessment/Plan: chronic NYHA class I-II left ventricular failure currently compensated/euvolemic continue aldactone and adequate bp control low na diet Code(s): I38 - ENDOCARDITIS, VALVE UNSPECIFIED; I50.30 - UNSPECIFIED DIASTOLIC ( CONGESTIVE) HEART FAILURE (4) Mitral valve regurgitation Assessment/Plan: being evaluated for percutaneous mitral valve replacement vs MitraClip follow up outpt with cardiology once resolution of anemia/gib Code(s): I34.0 - NONRHEUMATIC MITRAL (VALVE) INSUFFICIENCY Qualifiers: Cardiac valve disease etiology: nonrheumatic Qualified Code(s): I34.0 - Nonrheumatic mitral (valve) insufficiency (5) Aortic stenosis Assessment/Plan: resolved s/p TAVR Code(s): I35.0 - NONRHEUMATIC AORTIC (VALVE) STENOSIS Qualifiers: Cardiac valve disease etiology: nonrheumatic Qualified Code(s): I35.0 - Nonrheumatic aortic (valve) stenosis (6) HTN (hypertension) Assessment/Plan: controlled continue losartan, carvedilol, aldactone per parameters Code(s): I10 - ESSENTIAL (PRIMARY) HYPERTENSION Qualifiers: Hypertension type: essential hypertension Qualified Code(s): I10 - Essential (primary) hypertension (7) Hypothyroid Assessment/Plan: chronic continue synthroid Code(s): E03.9 - HYPOTHYROIDISM, UNSPECIFIED Qualifiers: Hypothyroidism type: unspecified Qualified Code(s): E03.9 - Hypothyroidism , unspecified (8) Hyperlipidemia Assessment/Plan: Controlled Continue lipitor, lovaza continue lifestyle modifications Code(s): E78.5 - HYPERLIPIDEMIA, UNSPECIFIED (9) GERD (gastroesophageal reflux disease) Assessment/Plan: Stable Continue protonix Code(s): K21.9 - GASTRO-ESOPHAGEAL REFLUX DISEASE WITHOUT ESOPHAGITIS Qualifiers: Esophagitis presence: without esophagitis Qualified Code(s): K21.9 - Gastro -esophageal reflux disease without esophagitis (10) Diabetes Assessment/Plan: controlled BGM Insulin siding scale holding metformin, januvia until after colonoscopy Code(s): E11.9 - TYPE 2 DIABETES MELLITUS WITHOUT COMPLICATIONS Qualifiers: Diabetes mellitus type: type 2 Diabetes mellitus complication status: with ophthalmic complications Diabetes mellitus complication detail: with diabetic retinopathy Diabetes mellitus fpc insulin use: without fpc use (11) CAD (coronary artery disease) Assessment/Plan: Stable Holding aspirin in the setting of GIB Code(s): I25.10 - ATHSCL HEART DISEASE OF [place] CORONARY ARTERY W/O ANG PCTRS Qualifiers: Coronary Disease-Associated Artery/Lesion type: [place] artery [place] vs. transplanted heart: [place] heart Associated angina: without angina Qualified Code(s): I25.10 - Atherosclerotic heart disease of [place] coronary artery without angina pectoris (12) COPD (chronic obstructive pulmonary disease) Assessment/Plan: chronic continue duonebs, symbicort Code(s): J44.9 - CHRONIC OBSTRUCTIVE PULMONARY DISEASE, UNSPECIFIED Qualifiers: COPD type: unspecified COPD Qualified Code(s): J44.9 - Chronic obstructive pulmonary disease, unspecified
[2017-08-22] MEDS: CARVEDILOL 6.25 MG TABLET (FP) PO SCH ×2 (10:10→21:47)
[2017-08-22] MEDS: SPIRONOLACTONE 25 MG TABLET (FP) PO SCH (10:10)
[2017-08-22] MEDS: LOSARTAN POTASSIUM 50 MG TABLET (FP) PO SCH (10:10)
[2017-08-22] MEDS: OMEGA-3 ACID ETHYL ESTERS (FATTY-ACIDS) 1 GM CAPSULE (FP) PO SCH ×2 (10:10→21:47)
[2017-08-22] MEDS: POLYETHYLENE GLYCOL 3350 119 GM BTL PO SCH ×2 (10:10→21:48)
[2017-08-22] MEDS: PANTOPRAZOLE 40 MG TABLET (FP) PO SCH (10:11)
[2017-08-22] MEDS: CHOLECALCIFEROL (VITAMIN D3) 1,000 UNIT TABLET (FP) PO SCH (10:11)
[2017-08-22] MEDS: MAG HYDROX/AL HYDROX/SIMETH 30 ML UNIT-DOSE CUP PO SCH ×4 (10:11→21:48)
[2017-08-22] MEDS: BUDESONIDE/FORMETEROL FUMARATE 80/4.5 mcg INHALER IH SCH ×2 (10:11→23:00)
[2017-08-22] MEDS: NYSTATIN 100,000 UNIT/GM TOPICAL CREAM 15 GM TUBE TP SCH ×2 (10:13→21:54)
--- NOTE | 2017-08-22 10:25 | PN ---
Progress Note, Physician Chief Complaint: Events noted Not in distress History of Present Illness: Patient was seen and examined. Awake and alert. Chart was reviewed Denies chest pain, SOB or palpitations Await further GI work up - Current Medication List Current Medications: Active Medications Acetaminophen (Tylenol -) 650 mg PO Q4H PRN PRN Reason: PAIN LEVEL 1-5 Al Hydroxide/Mg Hydroxide (Mylanta Oral Suspension -) 30 ml PO QID [facility] Last Admin: 08/22/17 10:11 Dose: Not Given Atorvastatin Calcium (Lipitor -) 10 mg PO HS [facility] Last Admin: 08/21/17 22:21 Dose: 10 mg Budesonide/Formoterol Fumarate (Symbicort 80/4.5mcg -) 2 puff IH BID [facility] Last Admin: 08/22/17 10:11 Dose: Not Given Carvedilol (Coreg -) 6.25 mg PO BID [facility] Last Admin: 08/22/17 10:10 Dose: Not Given Cholecalciferol (Vitamin D3 -) 1,000 unit PO DAILY [facility] Last Admin: 08/22/17 10:11 Dose: Not Given Sodium Chloride (Normal Saline -) 1,000 mls @ 75 mls/hr IV ASDIR [facility] Last Admin: 08/22/17 06:15 Dose: 75 mls/hr Insulin Aspart (Novolog Vial Sliding Scale -) 1 vial SQ ACHS [facility] PRN Reason: Protocol Last Admin: 08/22/17 06:16 Dose: Not Given Latanoprost (Xalatan 0.005% Eye Drops -) 1 drop OU HS [facility] Last Admin: 08/21/17 22:21 Dose: 1 drop Levothyroxine Sodium (Synthroid -) 25 mcg PO DAILY@0700 [facility] Last Admin: 08/22/17 06:16 Dose: Not Given Losartan Potassium (Cozaar -) 50 mg PO DAILY [facility] Last Admin: 08/22/17 10:10 Dose: Not Given Nitroglycerin (Nitrostat -) 0.4 mg SL DAILY PRN PRN Reason: SHORTNESS OF BREATH Nystatin (Mycostatin Cream -) 1 applic TP BID [facility] Last Admin: 08/22/17 10:13 Dose: 1 applic [id number] Ethyl Esters (Lovaza -) 2 gm PO BID [facility] Last Admin: 08/22/17 10:10 Dose: Not Given Pantoprazole Sodium (Protonix -) 40 mg PO DAILY [facility] Last Admin: 08/22/17 10:11 Dose: Not Given Polyethylene Glycol (Miralax (For Daily Use) -) 17 gm PO BID [facility] Last Admin: 08/22/17 10:10 Dose: Not Given Sertraline HCl (Zoloft -) 25 mg PO HS [facility] Last Admin: 08/21/17 22:21 Dose: 25 mg Spironolactone (Aldactone -) 25 mg PO DAILY [facility] Last Admin: 08/22/17 10:10 Dose: Not Given - Objective Vital Signs: Vital Signs Temperature 98 F 08/22/17 05:29 Pulse Rate 75 08/22/17 06:19 Respiratory Rate 18 08/22/17 06:19 Blood Pressure 96/48 08/22/17 06:19 O2 Sat by Pulse Oximetry (%) 96 08/21/17 20:16 Eyes: Yes: PERRL HENT: Yes: Atraumatic Neck: Yes: Supple Cardiovascular: Yes: Regular Rate and Rhythm, Murmur (3/6 SM), S1, S2 Respiratory: Yes: CTA Bilaterally Gastrointestinal: Yes: Normal Bowel Sounds, Soft. No: Tenderness Edema: No Additional Findings/Remarks: - Review of Systems Constitutional: denies: Chills, Fever Cardiovascular: denies: Shortness of Breath. denies: Chest Pain, Palpitations Respiratory: denies: Cough, SOB, SOB on Exertion. denies: Hemoptysis, Orthopnea , PND, Wheezing Gastrointestinal: denies: Abdominal Pain, Constipation, Diarrhea, Melena, Nausea , Rectal Bleeding, Vomiting Genitourinary: denies: Dysuria, Hematuria Neurological: denies: Dizziness, Headache, Seizure, Syncope Labs: CBC, BMP 08/22/17 06:25 08/22/17 06:25 INR, PTT INR 1.06 (0.82-1.09) 08/22/17 06:25 Problem List - Problems (1) Diverticulosis Code(s): K57.90 - DVRTCLOS OF INTEST, PART UNSP, W/O PERF OR ABSCESS W/O BLEED (2) Hyperlipidemia Code(s): E78.5 - HYPERLIPIDEMIA, UNSPECIFIED Qualifiers: Hyperlipidemia type: pure hypercholesterolemia Qualified Code(s): E78.00 - Pure hypercholesterolemia, unspecified; E78.0 - Pure hypercholesterolemia (3) Acute on chronic diastolic (congestive) heart failure Code(s): I50.33 - ACUTE ON CHRONIC DIASTOLIC (CONGESTIVE) HEART FAILURE (4) Anemia Code(s): D64.9 - ANEMIA, UNSPECIFIED Qualifiers: Anemia type: iron deficiency Iron deficiency anemia type: chronic blood loss Qualified Code(s): D50.0 - Iron deficiency anemia secondary to blood loss (chronic) (5) Aortic stenosis Code(s): I35.0 - NONRHEUMATIC AORTIC (VALVE) STENOSIS Qualifiers: Cardiac valve disease etiology: nonrheumatic Qualified Code(s): I35.0 - Nonrheumatic aortic (valve) stenosis (6) CAD (coronary artery disease) Code(s): I25.10 - ATHSCL HEART DISEASE OF [place] CORONARY ARTERY W/O ANG PCTRS Qualifiers: Coronary Disease-Associated Artery/Lesion type: [place] artery [place] vs. transplanted heart: [place] heart Associated angina: without angina Qualified Code(s): I25.10 - Atherosclerotic heart disease of [place] coronary artery without angina pectoris (7) COPD (chronic obstructive pulmonary disease) Code(s): J44.9 - CHRONIC OBSTRUCTIVE PULMONARY DISEASE, UNSPECIFIED Qualifiers: COPD type: unspecified COPD Qualified Code(s): J44.9 - Chronic obstructive pulmonary disease, unspecified (8) Diabetes Code(s): E11.9 - TYPE 2 DIABETES MELLITUS WITHOUT COMPLICATIONS Qualifiers: Diabetes mellitus type: type 2 Diabetes mellitus complication status: with ophthalmic complications Diabetes mellitus complication detail: with diabetic retinopathy Diabetes mellitus intermediate project manager insulin use: without retirement use (9) GERD (gastroesophageal reflux disease) Code(s): K21.9 - GASTRO-ESOPHAGEAL REFLUX DISEASE WITHOUT ESOPHAGITIS Qualifiers: Esophagitis presence: without esophagitis Qualified Code(s): K21.9 - Gastro -esophageal reflux disease without esophagitis (10) HTN (hypertension) Code(s): I10 - ESSENTIAL (PRIMARY) HYPERTENSION Qualifiers: Hypertension type: essential hypertension Qualified Code(s): I10 - Essential (primary) hypertension (11) Hypothyroid Code(s): E03.9 - HYPOTHYROIDISM, UNSPECIFIED Qualifiers: Hypothyroidism type: unspecified Qualified Code(s): E03.9 - Hypothyroidism , unspecified (12) Mitral valve regurgitation Code(s): I34.0 - NONRHEUMATIC MITRAL (VALVE) INSUFFICIENCY Qualifiers: Cardiac valve disease etiology: nonrheumatic Qualified Code(s): I34.0 - Nonrheumatic mitral (valve) insufficiency (13) S/P TAVR (transcatheter aortic valve replacement) Code(s): Z95.2 - PRESENCE OF PROSTHETIC HEART VALVE Assessment/Plan 1. Dyspnea and fatigue referable to profound anemia 2. Mitral valve regurgitation 3. Aortic valve disease critical aortic valve stenosis post TAVR (23 mm Qian 3 Trans-catheter Tissue Valve) 4. Coronary artery disease 5. Diastolic left ventricular dysfunction with acute on chronic class I-II [place] [employer] classification left ventricular failure, currently compensated/euvolemic 6. Tricuspid valve regurgitation 7. HTN/HCVD 8. NIDDM 9. Hypercholesterolemia 10. History of retinal hemorrhages 11. Carotid stenosis 12. Hypothyroidism 13. Chronic obstructive pulmonary disease 14. History gastro-esophageal reflux disease 15. History of GI bleed, diverticular disease 16. 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 CKD PLAN: 1. Transfuse to maintain Hgb>8.0, continue PPI and proceed with GI work up 2. Continue Coreg 6.25 bid, Cozaar 50 qd, Lipitor 10 qhs, Lovaza 2 bid, and Spironolactone 25 qd. 3. No specific plan for mitral valve intervention at this time Further plans are to follow Abiodun Cabral MD
[2017-08-22] MEDS ORDERED: MIDAZOLAM HCL 2 MG/2 ML SINGLE DOSE VIAL ONE (12:03)
[2017-08-22] MEDS ORDERED: LIDOCAINE HCL 2% (20ML MULTI-DOSE VIAL) NR ONE (12:04)
[2017-08-22] MEDS ORDERED: ETOMIDATE 20 MG/10 ML AMPUL IVPUSH ONE (12:25)
--- NOTE | 2017-08-22 13:20 | PN ---
Progress Note (short form) - Note Progress Note: GI Procedure NOte: Please see scanned colonosocpy report. Old blood was found throughout the colon but no actively bleeding site was identified. When the ileum was intubated blood was noted to be emanating from above. 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 bleed.Unfortunately her renal function precludes a safe CTA with contrast. Will obtain Meckels scan. Will ultimately need another capsule endoscopy. Problem List - Problems (1) GI bleed Code(s): K92.2 - GASTROINTESTINAL HEMORRHAGE, UNSPECIFIED Qualifiers: GI bleed type/associated pathology: angiodysplasia of stomach and duodenum Qualified Code(s): K31.811 - Angiodysplasia of stomach and duodenum with bleeding (2) Colon adenomas Code(s): D12.6 - BENIGN NEOPLASM OF COLON, UNSPECIFIED (3) Diverticulosis Code(s): K57.90 - DVRTCLOS OF INTEST, PART UNSP, W/O PERF OR ABSCESS W/O BLEED (4) Cholelithiasis Code(s): K80.20 - CALCULUS OF GALLBLADDER W/O CHOLECYSTITIS W/O OBSTRUCTION (5) Renal stones Code(s): N20.0 - CALCULUS OF KIDNEY (6) Legally blind Code(s): H54.8 - LEGAL BLINDNESS, DEFINED IN [place]
[2017-08-22 16:14] LABS: BASO % 0.7 % (0-2.0); EOS % 2.3 % (0-4.5); HEMATOCRIT 27.5 % (32.4-45.2); HEMOGLOBIN 9.2 GM/dL (10.7-15.3); MCH 30.9 pg (25.7-33.7); MCHC 33.6 g/dl (32.0-36.0); MEAN CELL VOLUME 91.9 fl (80-96); MONO % 10.4 % (3.8-10.2); NEUT % 61.6 % (42.8-82.8); PLATELET COUNT 229 K/MM3 (134-434); RDW 15.3 % (11.6-15.6); WHITE BLOOD COUNT 7.9 K/mm3 (4.0-10.0)
[2017-08-22] MEDS: ATORVASTATIN CA 10 MG TABLET (FP) PO SCH (21:47)
[2017-08-22] MEDS: SERTRALINE HCL 25 MG TABLET (FP) PO SCH (21:47)
[2017-08-22] MEDS: LATANOPROST 0.005% OPHTH SOLN 2.5ML BOTTLE OU SCH (21:54)
[2017-08-23] MEDS: LEVOTHYROXINE NA 25 MCG TABLET (FP) PO SCH (06:20)
[2017-08-23] MEDS: SODIUM CHLORIDE 1,000 ML IV SCH (06:20)
[2017-08-23] MEDS: INSULIN SLIDING SCALE (NOVOLOG) 1 VIAL SQ SCH ×4 (06:20→22:50)
[2017-08-23 07:06] LABS: BASO % 0.7 % (0-2.0); EOS % 3.7 % (0-4.5); HEMATOCRIT 25.5 % (32.4-45.2); HEMOGLOBIN 8.7 GM/dL (10.7-15.3); LYMPH % 30.9 % (8-40); MCH 31.1 pg (25.7-33.7); MCHC 34.1 g/dl (32.0-36.0); MEAN CELL VOLUME 91.2 fl (80-96); MONO % 11.5 % (3.8-10.2); NEUT % 53.2 % (42.8-82.8); PLATELET COUNT 217 K/MM3 (134-434); RDW 15.7 % (11.6-15.6); WHITE BLOOD COUNT 6.8 K/mm3 (4.0-10.0)
[2017-08-23 07:43] LABS: CALCIUM 7.3 mg/dL (8.5-10.1); CHLORIDE 109 mmol/L (98-107); POTASSIUM 4.3 mmol/L (3.5-5.1); SODIUM 141 mmol/L (136-145)
[2017-08-23 07:46] LABS: ANION GAP 6 (8-16); BLOOD UREA NITROGEN 15 mg/dL (7-18); CO2 26 mmol/L (21-32); CREATININE 0.7 mg/dL (0.55-1.02); GLUCOSE,RANDOM 110 mg/dL (74-106); MAGNESIUM 2.3 mg/dL (1.8-2.4); PHOSPHOROUS 2.5 mg/dL (2.5-4.9)
--- NOTE | 2017-08-23 08:11 | PN ---
Progress Note (short form) - Note Progress Note: Chief Complaint: Events noted, notes reviewed, denies any chest pain or dyspnea , no visible bleed reported History of Present Illness: Seen and examined on telemetry. Events noted, notes reviewed, denies any chest pain or dyspnea, no visible bleed reported Echocardiography performed 07/23/2016 revealed normal bi-ventricular size and function, severe [place] 0.65 cm2 MG 65 mmHg, trace-mild AR, RVSP 40-50 mmHg Echocardiography performed 04/21/17 revealed mild degree of concentric left ventricular hypertrophy with normal left ventricular systolic function and estimated left ventricular ejection fraction between 65-70%, left atrial dilatation measuring 4.4 cm, normal right ventricular size and function, bio- prosthetic aortic valve with no evidence of aortic valve regurgitation and acceptable trans-valvular gradient with a mean trans-valvular gradient of 15 mmHg and a peak trans-valvular gradient of 29 mmHg, thickened mitral valve leaflets moderate to severe eccentrically/anteriorly directed mitral valve regurgitation (significant change in comparison to the prior study dated August 05, 2016), mild to moderate tricuspid valve regurgitation with calculated RVSP of 56 mmHg consistent with moderate degree of my hypertension ( significant change in comparison to the prior study dated August 05, 2016). - Current Medication List Current Medications Acetaminophen (Tylenol -) 650 mg PO Q4H PRN PRN Reason: PAIN LEVEL 1-5 Al Hydroxide/Mg Hydroxide (Mylanta Oral Suspension -) 30 ml PO QID [facility] Last Admin: 08/23/17 09:52 Dose: 30 ml Atorvastatin Calcium (Lipitor -) 10 mg PO HS [facility] Last Admin: 08/22/17 21:47 Dose: 10 mg Budesonide/Formoterol Fumarate (Symbicort 80/4.5mcg -) 2 puff IH BID [facility] Last Admin: 08/23/17 09:53 Dose: 2 puff Carvedilol (Coreg -) 6.25 mg PO BID [facility] Last Admin: 08/23/17 09:53 Dose: Not Given Cholecalciferol (Vitamin D3 -) 1,000 unit PO DAILY [facility] Last Admin: 08/23/17 09:52 Dose: 1,000 unit Insulin Aspart (Novolog Vial Sliding Scale -) 1 vial SQ ACHS [facility] PRN Reason: Protocol Last Admin: 08/23/17 06:20 Dose: Not Given Latanoprost (Xalatan 0.005% Eye Drops -) 1 drop OU [facility] Last Admin: 08/22/17 21:54 Dose: 1 drop Levothyroxine Sodium (Synthroid -) 25 mcg PO DAILY@0700 [facility] Last Admin: 08/23/17 06:20 Dose: 25 mcg Losartan Potassium (Cozaar -) 50 mg PO DAILY [facility] Last Admin: 08/23/17 09:53 Dose: Not Given Nitroglycerin (Nitrostat -) 0.4 mg SL DAILY PRN PRN Reason: SHORTNESS OF BREATH Nystatin (Mycostatin Cream -) 1 applic TP BID [facility] Last Admin: 08/23/17 09:52 Dose: 1 applic [id number] Ethyl Esters (Lovaza -) 2 gm PO BID [facility] Last Admin: 08/23/17 09:52 Dose: 2 gm Pantoprazole Sodium (Protonix -) 40 mg PO DAILY [facility] Last Admin: 08/23/17 09:52 Dose: 40 mg Polyethylene Glycol (Miralax (For Daily Use) -) 17 gm PO BID [facility] Last Admin: 08/23/17 09:53 Dose: Not Given Sertraline HCl (Zoloft -) 25 mg PO [facility] Last Admin: 08/22/17 21:47 Dose: 25 mg Spironolactone (Aldactone -) 25 mg PO DAILY [facility] Last Admin: 08/23/17 09:52 Dose: 25 mg Review of Systems - Review of Systems Constitutional: denies: Chills, Fever Cardiovascular: As noted above Respiratory: denies: Cough or Sputum Production Gastrointestinal: denies: Nausea, Vomiting, Diarrhea, Constipation or Abdominal Discomfort Neurological: No Symptoms Reported - Objective Vital Signs: Last Vital Signs Temp Pulse Resp BP Pulse Ox 98.1 F 70 16 103/59 97 08/23/17 05:42 08/23/17 05:42 08/23/17 05:42 08/23/17 05:42 08/22/17 21:00 Intake & Output 08/20/17 08/21/17 08/22/17 08/23/17 23:59 23:59 23:59 23:59 Intake Total 500 680.4 736 1010 Balance 500 680.4 736 1010 Constitutional: No Distress, Calm Neck: Supple Negative JVD Cardiovascular: S1 S2 Regular Rate and Rhythm Grade 3-4/6 SM apical Respiratory: Diminished at the Bases Bilaterally Gastrointestinal: Soft Benign Normal Bowel Sounds Ext: No Edema Labs: CBC, BMP 08/23/17 06:25 08/23/17 06:25 Hepatic Panel Total Bilirubin 0.9 mg/dL (0.2-1.0) D 08/21/17 05:05 AST 13 U/L (15-37) L 08/21/17 05:05 ALT 14 U/L (12-78) 08/21/17 05:05 Alkaline Phosphatase 40 U/L (45-117) L 08/21/17 05:05 Albumin 3.4 g/dl (3.4-5.0) 08/21/17 05:05 INR, PTT INR 1.06 (0.82-1.09) 08/22/17 06:25 Assessment/Plan ASSESSMENT: 1. Dyspnea and progressive fatigue referable to profound anemia, source to be determined 2. Aortic valve disease critical aortic valve stenosis aortic valve area of 0.6 cm on echocardiography performed September 25, 2015 post transcutaneous aortic valve replacement TAVR August 03, 2016 (23 mm Qian 3 Trans-catheter Tissue Valve) 3. Coronary artery disease abnormal myocardial perfusion imaging study September negative pharmacologic Dipyridamole myocardial perfusion imaging study for myocardial ischemia April 26, 2005 non-obstructive coronary artery disease on coronary angiography July 26, 2016 angina pectoris endothelial dysfunction 4. Diastolic left ventricular dysfunction with chronic class I-II [place] [employer] classification left ventricular failure, compensated/euvolemic 5. 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 Tricuspid valve regurgitation trace in severity with RVSP of 37 mmHg on echocardiography performed August 05, 2016 and mild to moderate tricuspid valve regurgitation with calculated RVSP of 56 mmHg on echocardiography performed April 21, 2017 consistent with mild to moderate degree of pulmonary hypertension 7. Hypertensive cardiovascular disease 8. [id number] diabetes mellitus 9. Hypercholesterolemia 10. History of retinal hemorrhages 11. Carotid stenosis mild in severity 12. Hypothyroidism 13. Chronic obstructive pulmonary disease 14. History gastro-esophageal reflux disease 15. History of gastro-intestinal bleed 16. History of diverticular disease 17. History of degenerative lumbosacral disc disease with low back pain syndrome 18. History of degenerative joint disease PLAN: 1. Transfuse to maintain Hgb > 8.0 2. Continue Aldactone 3. Continue Coreg 4. Continue Cozaar 5. Continue Lipitor 6. Continue to hold ASA pending completion of GI evaluation 7. GI evaluation as planned 8. Mitral valve intervention is deferred at this point considering her co- morbidities, since the only option is operative repair Kezia Benz MD
[2017-08-23] MEDS ORDERED: SODIUM CHLORIDE 1,000 ML IV SCH (09:10)
--- NOTE | 2017-08-23 09:13 | PN ---
Progress Note, Physician Chief Complaint: Pt sitting in chair in no acute distress. without any complaints. Denies chest pain, sob, n/v/d. - Current Medication List Current Medications: Active Medications Acetaminophen (Tylenol -) 650 mg PO Q4H PRN PRN Reason: PAIN LEVEL 1-5 Al Hydroxide/Mg Hydroxide (Mylanta Oral Suspension -) 30 ml PO QID [facility] Last Admin: 08/22/17 21:48 Dose: Not Given Atorvastatin Calcium (Lipitor -) 10 mg PO HS [facility] Last Admin: 08/22/17 21:47 Dose: 10 mg Budesonide/Formoterol Fumarate (Symbicort 80/4.5mcg -) 2 puff IH BID [facility] Last Admin: 08/22/17 23:00 Dose: 2 puff Carvedilol (Coreg -) 6.25 mg PO BID [facility] Last Admin: 08/22/17 21:47 Dose: 6.25 mg Cholecalciferol (Vitamin D3 -) 1,000 unit PO DAILY [facility] Last Admin: 08/22/17 10:11 Dose: Not Given Insulin Aspart (Novolog Vial Sliding Scale -) 1 vial SQ ACHS [facility] PRN Reason: Protocol Last Admin: 08/23/17 06:20 Dose: Not Given Latanoprost (Xalatan 0.005% Eye Drops -) 1 drop OU HS [facility] Last Admin: 08/22/17 21:54 Dose: 1 drop Levothyroxine Sodium (Synthroid -) 25 mcg PO DAILY@0700 [facility] Last Admin: 08/23/17 06:20 Dose: 25 mcg Losartan Potassium (Cozaar -) 50 mg PO DAILY [facility] Last Admin: 08/22/17 10:10 Dose: Not Given Nitroglycerin (Nitrostat -) 0.4 mg SL DAILY PRN PRN Reason: SHORTNESS OF BREATH Nystatin (Mycostatin Cream -) 1 applic TP BID [facility] Last Admin: 08/22/17 21:54 Dose: Not Given [id number] Ethyl Esters (Lovaza -) 2 gm PO BID [facility] Last Admin: 08/22/17 21:47 Dose: 2 gm Pantoprazole Sodium (Protonix -) 40 mg PO DAILY [facility] Last Admin: 08/22/17 10:11 Dose: Not Given Polyethylene Glycol (Miralax (For Daily Use) -) 17 gm PO BID [facility] Last Admin: 08/22/17 21:48 Dose: Not Given Sertraline HCl (Zoloft -) 25 mg PO HS [facility] Last Admin: 08/22/17 21:47 Dose: 25 mg Spironolactone (Aldactone -) 25 mg PO DAILY [facility] Last Admin: 08/22/17 10:10 Dose: Not Given - Objective Vital Signs: Vital Signs Temperature 98.1 F 08/23/17 05:42 Pulse Rate 70 08/23/17 05:42 Respiratory Rate 16 08/23/17 05:42 Blood Pressure 103/59 08/23/17 05:42 O2 Sat by Pulse Oximetry (%) 97 08/22/17 21:00 Constitutional: Yes: Well Nourished, No Distress Cardiovascular: Yes: WNL, Regular Rate and Rhythm, Murmur. No: Bruit, Gallop, Rub Respiratory: Yes: WNL, Regular, CTA Bilaterally. No: Rales, Rhonchi, SOB Gastrointestinal: Yes: WNL, Normal Bowel Sounds, Soft, Abdomen, Obese. No: Distention, Tenderness Genitourinary: Yes: WNL Edema: No Neurological: Yes: WNL, Alert, Oriented Psychiatric: Yes: WNL, Alert, Oriented Labs: CBC, BMP 08/23/17 06:25 08/23/17 06:25 INR, PTT INR 1.06 (0.82-1.09) 08/22/17 06:25 Problem List - Problems (1) GI bleed Code(s): K92.2 - GASTROINTESTINAL HEMORRHAGE, UNSPECIFIED Qualifiers: GI bleed type/associated pathology: angiodysplasia of stomach and duodenum Qualified Code(s): K31.811 - Angiodysplasia of stomach and duodenum with bleeding (2) Symptomatic anemia Code(s): D64.9 - ANEMIA, UNSPECIFIED (3) Diastolic CHF due to valvular disease Code(s): I38 - ENDOCARDITIS, VALVE UNSPECIFIED; I50.30 - UNSPECIFIED DIASTOLIC ( CONGESTIVE) HEART FAILURE (4) Mitral valve regurgitation Code(s): I34.0 - NONRHEUMATIC MITRAL (VALVE) INSUFFICIENCY Qualifiers: Cardiac valve disease etiology: nonrheumatic Qualified Code(s): I34.0 - Nonrheumatic mitral (valve) insufficiency (5) Aortic stenosis Code(s): I35.0 - NONRHEUMATIC AORTIC (VALVE) STENOSIS Qualifiers: Cardiac valve disease etiology: nonrheumatic Qualified Code(s): I35.0 - Nonrheumatic aortic (valve) stenosis (6) HTN (hypertension) Code(s): I10 - ESSENTIAL (PRIMARY) HYPERTENSION Qualifiers: Hypertension type: essential hypertension Qualified Code(s): I10 - Essential (primary) hypertension (7) Hypothyroid Code(s): E03.9 - HYPOTHYROIDISM, UNSPECIFIED Qualifiers: Hypothyroidism type: unspecified Qualified Code(s): E03.9 - Hypothyroidism , unspecified (8) Hyperlipidemia Code(s): E78.5 - HYPERLIPIDEMIA, UNSPECIFIED Qualifiers: Hyperlipidemia type: pure hypercholesterolemia Qualified Code(s): E78.00 - Pure hypercholesterolemia, unspecified; E78.0 - Pure hypercholesterolemia (9) GERD (gastroesophageal reflux disease) Code(s): K21.9 - GASTRO-ESOPHAGEAL REFLUX DISEASE WITHOUT ESOPHAGITIS Qualifiers: Esophagitis presence: without esophagitis Qualified Code(s): K21.9 - Gastro -esophageal reflux disease without esophagitis (10) Diabetes Code(s): E11.9 - TYPE 2 DIABETES MELLITUS WITHOUT COMPLICATIONS Qualifiers: Diabetes mellitus type: type 2 Diabetes mellitus complication status: with ophthalmic complications Diabetes mellitus complication detail: with diabetic retinopathy Diabetes mellitus termite control service representative insulin use: without termite control service representative use (11) CAD (coronary artery disease) Code(s): I25.10 - ATHSCL HEART DISEASE OF [place] CORONARY ARTERY W/O ANG PCTRS Qualifiers: Coronary Disease-Associated Artery/Lesion type: [place] artery [place] vs. transplanted heart: [place] heart Associated angina: without angina Qualified Code(s): I25.10 - Atherosclerotic heart disease of [place] coronary artery without angina pectoris (12) COPD (chronic obstructive pulmonary disease) Code(s): J44.9 - CHRONIC OBSTRUCTIVE PULMONARY DISEASE, UNSPECIFIED Qualifiers: COPD type: unspecified COPD Qualified Code(s): J44.9 - Chronic obstructive pulmonary disease, unspecified Assessment/Plan (1) GI bleed Assessment/Plan: H/h slight drop from yesterday, stable S/p EGD, source of bleed unidentified colonoscopy without complication, diverticulosis, otherwise source of bleed unidentified meckels scan without sig findings full liquids GI following Code(s): K92.2 - GASTROINTESTINAL HEMORRHAGE, UNSPECIFIED Qualifiers: GI bleed type/associated pathology: angiodysplasia of stomach and duodenum Qualified Code(s): K31.811 - Angiodysplasia of stomach and duodenum with bleeding (2) Symptomatic anemia Assessment/Plan: Secondary to GI bleed, possibly lower gi S/p 4 blood transfusions, h/h stable, hypotensive, asymptomatic will monitor Code(s): D64.9 - ANEMIA, UNSPECIFIED (3) Diastolic CHF due to valvular disease Assessment/Plan: chronic NYHA class I-II left ventricular failure currently compensated/euvolemic continue aldactone and adequate bp control low na diet Code(s): I38 - ENDOCARDITIS, VALVE UNSPECIFIED; I50.30 - UNSPECIFIED DIASTOLIC ( CONGESTIVE) HEART FAILURE (4) Mitral valve regurgitation Assessment/Plan: being evaluated for percutaneous mitral valve replacement vs MitraClip follow up outpt with cardiology once resolution of anemia/gib Code(s): I34.0 - NONRHEUMATIC MITRAL (VALVE) INSUFFICIENCY Qualifiers: Cardiac valve disease etiology: nonrheumatic Qualified Code(s): I34.0 - Nonrheumatic mitral (valve) insufficiency (5) Aortic stenosis Assessment/Plan: resolved s/p TAVR Code(s): I35.0 - NONRHEUMATIC AORTIC (VALVE) STENOSIS Qualifiers: Cardiac valve disease etiology: nonrheumatic Qualified Code(s): I35.0 - Nonrheumatic aortic (valve) stenosis (6) HTN (hypertension) Assessment/Plan: controlled continue losartan, carvedilol, aldactone per parameters Code(s): I10 - ESSENTIAL (PRIMARY) HYPERTENSION Qualifiers: Hypertension type: essential hypertension Qualified Code(s): I10 - Essential (primary) hypertension (7) Hypothyroid Assessment/Plan: chronic continue synthroid Code(s): E03.9 - HYPOTHYROIDISM, UNSPECIFIED Qualifiers: Hypothyroidism type: unspecified Qualified Code(s): E03.9 - Hypothyroidism , unspecified (8) Hyperlipidemia Assessment/Plan: Controlled Continue lipitor, lovaza continue lifestyle modifications Code(s): E78.5 - HYPERLIPIDEMIA, UNSPECIFIED (9) GERD (gastroesophageal reflux disease) Assessment/Plan: Stable Continue protonix Code(s): K21.9 - GASTRO-ESOPHAGEAL REFLUX DISEASE WITHOUT ESOPHAGITIS Qualifiers: Esophagitis presence: without esophagitis Qualified Code(s): K21.9 - Gastro -esophageal reflux disease without esophagitis (10) Diabetes Assessment/Plan: controlled BGM Insulin siding scale holding metformin, januvia until after colonoscopy Code(s): E11.9 - TYPE 2 DIABETES MELLITUS WITHOUT COMPLICATIONS Qualifiers: Diabetes mellitus type: type 2 Diabetes mellitus complication status: with ophthalmic complications Diabetes mellitus complication detail: with diabetic retinopathy Diabetes mellitus half-way insulin use: without termite control service representative use (11) CAD (coronary artery disease) Assessment/Plan: Stable Holding aspirin in the setting of GIB Code(s): I25.10 - ATHSCL HEART DISEASE OF [place] CORONARY ARTERY W/O ANG PCTRS Qualifiers: Coronary Disease-Associated Artery/Lesion type: [place] artery [place] vs. transplanted heart: [place] heart Associated angina: without angina Qualified Code(s): I25.10 - Atherosclerotic heart disease of [place] coronary artery without angina pectoris (12) COPD (chronic obstructive pulmonary disease) Assessment/Plan: chronic continue duonebs, symbicort Code(s): J44.9 - CHRONIC OBSTRUCTIVE PULMONARY DISEASE, UNSPECIFIED Qualifiers: COPD type: unspecified COPD Qualified Code(s): J44.9 - Chronic obstructive pulmonary disease, unspecified Dispo: Home with services once cleared by gi
[2017-08-23] MEDS: MAG HYDROX/AL HYDROX/SIMETH 30 ML UNIT-DOSE CUP PO SCH ×4 (09:52→22:50)
[2017-08-23] MEDS: SPIRONOLACTONE 25 MG TABLET (FP) PO SCH (09:52)
[2017-08-23] MEDS: CHOLECALCIFEROL (VITAMIN D3) 1,000 UNIT TABLET (FP) PO SCH (09:52)
[2017-08-23] MEDS: NYSTATIN 100,000 UNIT/GM TOPICAL CREAM 15 GM TUBE TP SCH ×2 (09:52→22:50)
[2017-08-23] MEDS: OMEGA-3 ACID ETHYL ESTERS (FATTY-ACIDS) 1 GM CAPSULE (FP) PO SCH ×2 (09:52→22:39)
[2017-08-23] MEDS: PANTOPRAZOLE 40 MG TABLET (FP) PO SCH (09:52)
[2017-08-23] MEDS: BUDESONIDE/FORMETEROL FUMARATE 80/4.5 mcg INHALER IH SCH ×2 (09:53→22:45)
[2017-08-23] MEDS: CARVEDILOL 6.25 MG TABLET (FP) PO SCH ×2 (09:53→22:39)
[2017-08-23] MEDS: LOSARTAN POTASSIUM 50 MG TABLET (FP) PO SCH (09:53)
[2017-08-23] MEDS: POLYETHYLENE GLYCOL 3350 119 GM BTL PO SCH ×2 (09:53→22:45)
[2017-08-23 16:12] LABS: BASO % 0.7 % (0-2.0); EOS % 3.1 % (0-4.5); HEMATOCRIT 24.8 % (32.4-45.2); HEMOGLOBIN 8.3 GM/dL (10.7-15.3); LYMPH % 26.6 % (8-40); MCH 30.6 pg (25.7-33.7); MCHC 33.3 g/dl (32.0-36.0); MEAN CELL VOLUME 91.9 fl (80-96); MEAN PLT VOLUME 8.2 fl (7.5-11.1); MONO % 13.2 % (3.8-10.2); NEUT % 56.4 % (42.8-82.8); PLATELET COUNT 238 K/MM3 (134-434); RDW 15.3 % (11.6-15.6); WHITE BLOOD COUNT 7.2 K/mm3 (4.0-10.0)
[2017-08-23] MEDS ORDERED: INSULIN (NOVOLOG) ASPART 100 UNITS/ML 10ML VIAL ONE (21:42)
[2017-08-23] MEDS: SERTRALINE HCL 25 MG TABLET (FP) PO SCH (22:38)
[2017-08-23] MEDS: ATORVASTATIN CA 10 MG TABLET (FP) PO SCH (22:39)
[2017-08-23] MEDS: LATANOPROST 0.005% OPHTH SOLN 2.5ML BOTTLE OU SCH (22:45)
[2017-08-24] MEDS: INSULIN SLIDING SCALE (NOVOLOG) 1 VIAL SQ SCH (06:47)
[2017-08-24] MEDS: LEVOTHYROXINE NA 25 MCG TABLET (FP) PO SCH (06:48)
[2017-08-24 07:11] LABS: BASO % 0.6 % (0-2.0); EOS % 4.2 % (0-4.5); HEMATOCRIT 24.2 % (32.4-45.2); HEMOGLOBIN 8.2 GM/dL (10.7-15.3); LYMPH % 31.2 % (8-40); MCH 30.8 pg (25.7-33.7); MCHC 33.7 g/dl (32.0-36.0); MEAN CELL VOLUME 91.6 fl (80-96); MEAN PLT VOLUME 7.9 fl (7.5-11.1); MONO % 12.5 % (3.8-10.2); NEUT % 51.5 % (42.8-82.8); PLATELET COUNT 218 K/MM3 (134-434); RBC 2.65 M/mm3 (3.60-5.2); RDW 15.2 % (11.6-15.6); WHITE BLOOD COUNT 5.8 K/mm3 (4.0-10.0)
[2017-08-24 07:28] LABS: ANION GAP 5 (8-16); BLOOD UREA NITROGEN 14 mg/dL (7-18); CHLORIDE 108 mmol/L (98-107); CO2 27 mmol/L (21-32); CREATININE 0.7 mg/dL (0.55-1.02); GLUCOSE,RANDOM 135 mg/dL (74-106); MAGNESIUM 2.3 mg/dL (1.8-2.4); PHOSPHOROUS 2.9 mg/dL (2.5-4.9); POTASSIUM 4.5 mmol/L (3.5-5.1); SODIUM 140 mmol/L (136-145)
--- NOTE | 2017-08-24 09:38 | PN ---
Progress Note, Physician History of Present Illness: Colonoscopy revealed old blood was found throughout the colon but no actively bleeding site was identified. When the ileum was intubated blood was noted to be emanating from above. 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 bleed - Current Medication List Current Medications: Active Medications Acetaminophen (Tylenol -) 650 mg PO Q4H PRN PRN Reason: PAIN LEVEL 1-5 Last Admin: 08/23/17 22:40 Dose: 650 mg Al Hydroxide/Mg Hydroxide (Mylanta Oral Suspension -) 30 ml PO QID [facility] Last Admin: 08/23/17 22:50 Dose: Not Given Atorvastatin Calcium (Lipitor -) 10 mg PO HS [facility] Last Admin: 08/23/17 22:39 Dose: 10 mg Budesonide/Formoterol Fumarate (Symbicort 80/4.5mcg -) 2 puff IH BID [facility] Last Admin: 08/23/17 22:45 Dose: 2 puff Carvedilol (Coreg -) 6.25 mg PO BID [facility] Last Admin: 08/23/17 22:39 Dose: 6.25 mg Cholecalciferol (Vitamin D3 -) 1,000 unit PO DAILY [facility] Last Admin: 08/23/17 09:52 Dose: 1,000 unit Insulin Aspart (Novolog Vial Sliding Scale -) 1 vial SQ ACHS [facility] PRN Reason: Protocol Last Admin: 08/24/17 06:47 Dose: Not Given Latanoprost (Xalatan 0.005% Eye Drops -) 1 drop OU HS [facility] Last Admin: 08/23/17 22:45 Dose: 1 drop Levothyroxine Sodium (Synthroid -) 25 mcg PO DAILY@0700 [facility] Last Admin: 08/24/17 06:48 Dose: 25 mcg Losartan Potassium (Cozaar -) 50 mg PO DAILY [facility] Last Admin: 08/23/17 09:53 Dose: Not Given Nitroglycerin (Nitrostat -) 0.4 mg SL DAILY PRN PRN Reason: SHORTNESS OF BREATH Nystatin (Mycostatin Cream -) 1 applic TP BID [facility] Last Admin: 08/23/17 22:50 Dose: Not Given [id number] Ethyl Esters (Lovaza -) 2 gm PO BID [facility] Last Admin: 08/23/17 22:39 Dose: 2 gm Pantoprazole Sodium (Protonix -) 40 mg PO DAILY [facility] Last Admin: 08/23/17 09:52 Dose: 40 mg Polyethylene Glycol (Miralax (For Daily Use) -) 17 gm PO BID [facility] Last Admin: 08/23/17 22:45 Dose: 17 gm Sertraline HCl (Zoloft -) 25 mg PO HS [facility] Last Admin: 08/23/17 22:38 Dose: 25 mg Spironolactone (Aldactone -) 25 mg PO DAILY [facility] Last Admin: 08/23/17 09:52 Dose: 25 mg - Objective Vital Signs: Vital Signs Temperature 97.5 F L 08/24/17 06:00 Pulse Rate 69 08/24/17 06:00 Respiratory Rate 16 08/24/17 06:00 Blood Pressure 116/62 08/24/17 06:00 O2 Sat by Pulse Oximetry (%) 100 08/23/17 21:00 Constitutional: Yes: No Distress, Calm, Thin Neck: Yes: Supple Cardiovascular: Yes: Regular Rate and Rhythm, Murmur (3/6 SM) Respiratory: Yes: Regular, CTA Bilaterally Gastrointestinal: Yes: Normal Bowel Sounds, Soft Edema: No Labs: CBC, BMP 08/24/17 06:35 08/24/17 06:35 INR, PTT INR 1.06 (0.82-1.09) 08/22/17 06:25 Problem List - Problems (1) Diastolic CHF due to valvular disease Code(s): I38 - ENDOCARDITIS, VALVE UNSPECIFIED; I50.30 - UNSPECIFIED DIASTOLIC ( CONGESTIVE) HEART FAILURE (2) Legally blind Code(s): H54.8 - LEGAL BLINDNESS, DEFINED IN [place] (3) Symptomatic anemia Code(s): D64.9 - ANEMIA, UNSPECIFIED (4) Aortic stenosis Code(s): I35.0 - NONRHEUMATIC AORTIC (VALVE) STENOSIS Qualifiers: Cardiac valve disease etiology: nonrheumatic Qualified Code(s): I35.0 - Nonrheumatic aortic (valve) stenosis (5) CAD (coronary artery disease) Code(s): I25.10 - ATHSCL HEART DISEASE OF [place] CORONARY ARTERY W/O ANG PCTRS Qualifiers: Coronary Disease-Associated Artery/Lesion type: [place] artery [place] vs. transplanted heart: [place] heart Associated angina: without angina Qualified Code(s): I25.10 - Atherosclerotic heart disease of [place] coronary artery without angina pectoris (6) Diabetes Code(s): E11.9 - TYPE 2 DIABETES MELLITUS WITHOUT COMPLICATIONS Qualifiers: Diabetes mellitus type: type 2 Diabetes mellitus complication status: with ophthalmic complications Diabetes mellitus complication detail: with diabetic retinopathy Diabetes mellitus group home insulin use: without assistant terminal manager use (7) GI bleed Code(s): K92.2 - GASTROINTESTINAL HEMORRHAGE, UNSPECIFIED Qualifiers: GI bleed type/associated pathology: angiodysplasia of stomach and duodenum Qualified Code(s): K31.811 - Angiodysplasia of stomach and duodenum with bleeding (8) HTN (hypertension) Code(s): I10 - ESSENTIAL (PRIMARY) HYPERTENSION Qualifiers: Hypertension type: essential hypertension Qualified Code(s): I10 - Essential (primary) hypertension (9) Hypothyroid Code(s): E03.9 - HYPOTHYROIDISM, UNSPECIFIED Qualifiers: Hypothyroidism type: unspecified Qualified Code(s): E03.9 - Hypothyroidism , unspecified (10) Mitral valve regurgitation Code(s): I34.0 - NONRHEUMATIC MITRAL (VALVE) INSUFFICIENCY Qualifiers: Cardiac valve disease etiology: nonrheumatic Qualified Code(s): I34.0 - Nonrheumatic mitral (valve) insufficiency (11) Pulmonary hypertension Code(s): I27.2 - OTHER SECONDARY PULMONARY HYPERTENSION * DO NOT USE * (12) S/P TAVR (transcatheter aortic valve replacement) Code(s): Z95.2 - PRESENCE OF PROSTHETIC HEART VALVE (13) Shortness of breath Code(s): R06.02 - SHORTNESS OF BREATH (14) Transfusion of blood during current hospitalization Code(s): [id number] - (15) Weakness Code(s): R53.1 - WEAKNESS Assessment/Plan 05/12/2017 DON: Normal LV size and fxn, mild MV prolapse with severe eccentric MR, bioAVR, mild LAE Echocardiography performed 04/21/17 revealed mild degree of concentric left ventricular hypertrophy with normal left ventricular systolic function and estimated left ventricular ejection fraction between 65-70%, left atrial dilatation measuring 4.4 cm, normal right ventricular size and function, bio- prosthetic aortic valve with no evidence of aortic valve regurgitation and acceptable trans-valvular gradient with a mean trans-valvular gradient of 15 mmHg and a peak trans-valvular gradient of 29 mmHg, thickened mitral valve leaflets moderate to severe eccentrically/anteriorly directed mitral valve regurgitation (significant change in comparison to the prior study dated August 05, 2016), mild to moderate tricuspid valve regurgitation with calculated RVSP of 56 mmHg consistent with moderate degree of pulm hypertension (significant change in comparison to the prior study dated August 05, 2016). 1. Dyspnea and fatigue referable to profound anemia, EGD negative planned for colonoscopy. I don't suspect hemolytic anemia referable to prosthetic valve regurgitation given absence of aortic regurgitation 2. Chronic mitral valve regurgitation 3. Aortic valve disease critical aortic valve stenosis post transcutaneous aortic valve replacement TAVR (23 mm Qain 3 Trans-catheter Tissue Valve) 4. Coronary artery disease 5. Diastolic left ventricular dysfunction with acute on chronic class I-II [place] [employer] classification left ventricular failure, currently compensated/euvolemic 6. Tricuspid valve regurgitation 7. HTN/HCVD 8. NIDDM 9. Hypercholesterolemia 10. History of retinal hemorrhages 11. Carotid stenosis 12. Hypothyroidism 13. Chronic obstructive pulmonary disease 14. History gastro-esophageal reflux disease 15. 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 History of diverticular disease 17. History of degenerative lumbosacral disc disease with low back pain syndrome 18. History of degenerative joint disease 19. CKD PLAN: 1. Transfuse to maintain Hgb>8.0, continue PPI, given patient is clinically euvolemic 2. Continue Coreg 6.25 bid, Cozaar 50 qd, Lipitor 10 qhs, Lovaza 2 bid, and spironolactone 25 qd. ASA 81 qd d/[place] 3. Mitral valve intervention is deferred at this point considering her co- morbidities, since the only option is operative repair 4. Capsule endoscopy as outpatient, d/c planning with f/u as outpatient
[2017-08-24] MEDS ORDERED: PT OWN MED DRAWER 7, Y5N ONE (09:58)
[2017-08-24] MEDS ORDERED: MECLIZINE HCL 12.5 MG TABLET PO PRN (10:25)
[2017-08-24] MEDS: SPIRONOLACTONE 25 MG TABLET (FP) PO SCH (10:29)
[2017-08-24] MEDS: CARVEDILOL 6.25 MG TABLET (FP) PO SCH (10:29)
[2017-08-24] MEDS ORDERED: ASCORBIC ACID 500 MG TABLET (FP) PO SCH (10:30)
[2017-08-24] MEDS: MAG HYDROX/AL HYDROX/SIMETH 30 ML UNIT-DOSE CUP PO SCH ×3 (10:30→18:18)
[2017-08-24] MEDS ORDERED: SPIRONOLACTONE 25 MG TABLET (FP) PO SCH (10:30)
[2017-08-24] MEDS: LOSARTAN POTASSIUM 50 MG TABLET (FP) PO SCH (10:30)
[2017-08-24] MEDS ORDERED: VITAMIN D3 PO SCH (10:30)
[2017-08-24] MEDS: POLYETHYLENE GLYCOL 3350 119 GM BTL PO SCH (10:30)
[2017-08-24] MEDS ORDERED: CALCIUM CARB PO SCH (10:30)
[2017-08-24] MEDS ORDERED: VIT K1 PO SCH (10:30)
[2017-08-24] MEDS ORDERED: [UNRECOGNIZED DRUG - OTHER] PO SCH (10:30)
[2017-08-24] MEDS: BUDESONIDE/FORMETEROL FUMARATE 80/4.5 mcg INHALER IH SCH (10:31)
[2017-08-24] MEDS: OMEGA-3 ACID ETHYL ESTERS (FATTY-ACIDS) 1 GM CAPSULE (FP) PO SCH (10:31)
[2017-08-24] MEDS: NYSTATIN 100,000 UNIT/GM TOPICAL CREAM 15 GM TUBE TP SCH (10:31)
[2017-08-24] MEDS: PANTOPRAZOLE 40 MG TABLET (FP) PO SCH (10:32)
[2017-08-24] MEDS: CHOLECALCIFEROL (VITAMIN D3) 1,000 UNIT TABLET (FP) PO SCH (10:32)
--- NOTE | 2017-08-24 10:40 | DS ---
Physical Examination Vital Signs: Vital Signs Temperature 97.5 F L 08/24/17 06:00 Pulse Rate 69 08/24/17 06:00 Respiratory Rate 16 08/24/17 06:00 Blood Pressure 116/62 08/24/17 06:00 O2 Sat by Pulse Oximetry (%) 100 08/23/17 21:00 Constitutional: Yes: Well Nourished, No Distress Cardiovascular: Yes: Regular Rate and Rhythm, Murmur. No: Bruit, JVD, Gallop, Rub Respiratory: Yes: WNL, Regular, CTA Bilaterally. No: Rales, Rhonchi, Tachypnea , Wheezes Gastrointestinal: Yes: WNL, Normal Bowel Sounds, Soft. No: Distention, Tenderness Musculoskeletal: Yes: WNL Extremities: Yes: WNL Edema: No Neurological: Yes: WNL, Alert, Oriented Psychiatric: Yes: WNL, Alert, Oriented Labs: CBC, BMP 08/24/17 06:35 08/24/17 06:35 Discharge Summary Reason For Visit: SECONDARY ANEMIA Current Active Problems Diastolic CHF due to valvular disease (Chronic) Colon adenomas (Chronic) Diverticulosis (Chronic) Cholelithiasis (Chronic) Legally blind (Chronic) Hyperlipidemia (Chronic) Hospital Course: is a pleasant 81 year old female with pmh significant for diastolic HF secondary to valcular disease, s/p TAVR, chronic mitral regurgitation, came in with symptomatic anemia suspicious of gi bleed. Pt has been transfused with total 5 units during the hospital stay. Pt received 1 time dose venofer iron transfusion today. Pt has been doing well with resolution of sob/weakness post transfusions. GI was consulted. EGD,colonoscopy, Meckels diverticulum scan did not reveal a source of bleed. Bleeding likely due to small bowel vascular ectasias, if further drop in hg/hct, can do capsule endoscopy as directed by GI. H/h and vital signs stable today. Pt asymptomatic. Pt has been evaluated by cardiology. Aspirin d/c'd. Echo revealed sig change in tricuspid and mitral regurg compared to prev echo. Per cardiology recs, mitral valve intervention is deferred at this point considering her co-morbidities, since the only option is operative repair. Pt is advised to follow up with PCP within 7 days or earlier if possible to repeat cbc. Follow up with other providers as directed. Condition: Good - Instructions Diet, Activity, Other Instructions: resume prev activity as tolerated, diet as tolerated follow up with PCP in 1 week or earlier follow up with GI as directed. You might need a capsule endoscopy if hg/hct trends down Seek medical care if chest pain, sob, extreme fatigue, weakness, n/v/d, fever/ chills Referrals: Kendall Olvera MD [Staff Physician] - 2 Weeks (GI for possible capsule endoscopy ) Jorje Tom MD [Staff Physician] - 1 Week (PCP) Kezia Benz MD [Staff Physician] - 2 Weeks Disposition: VNS/HOME HEALTH CARE - Home Medications Comprehensive Discharge Medication List: Ambulatory Orders Losartan Potassium [Cozaar] 50 mg PO DAILY 12/18/14 Sitagliptin Phosphate [Januvia] 100 mg PO DAILY 12/18/14 metFORMIN HCL [Glucophage -] 500 mg PO TID 12/18/14 Atorvastatin Ca [Lipitor] 10 mg PO HS #1 tablet 12/22/14 Cholecalciferol (Vitamin D3) [Vitamin D3 -] 1,000 unit PO DAILY 03/10/16 Calcium Carb/Vitamin D3/Vit K1 [Citracal Soft Chew] 1 each PO DAILY 04/04/16 Fluticasone/Salmeterol [Advair 250-50 Diskus] 1 each IH BID 04/04/16 Ipratropium/Albuterol Sulfate [Combivent Respimat Inhal [place]] 4 gm IH QID PRN # 1 aer.w.adap 04/08/16 Latanoprost 0.005% Eye Drops [Xalatan 0.005% Eye Drops -] 1 drop OU HS 07/25/16 Ascorbic Acid [Vitamin C] 500 mg PO DAILY 05/10/17 B12/Levomefolate Calcium/B-6 [Folbic Rf Tablet] 1 each PO DAILY 05/10/17 Levothyroxine [Synthroid -] 0.025 mcg PO DAILY 05/10/17 Nitroglycerin 0.4 mg SL PRN 05/10/17 Koppel-3S/Dha/Epa/Fish Oil [Fish Oil 1,200 mg Softgel] 1 cap PO DAILY 05/10/17 Sertraline HCl [Zoloft] 25 mg PO HS 05/10/17 Carvedilol [Coreg -] 6.25 mg PO BID #60 tablet 05/13/17 Meclizine HCl [Antivert -] 12.5 mg PO Q6HPO PRN #30 tablet 05/13/17 Spironolactone [Aldactone] 25 mg PO DAILY #30 tablet 05/13/17
[2017-08-24] MEDS ORDERED: sitaGLIPtin PHOSPHATE 100 MG TABLET (FP) PO SCH (11:00)
[2017-08-24] MEDS ORDERED: IRON SUCROSE INJECTION 100 MG in SODIUM CHLORIDE 95 ML IVPB ONE (11:07)
--- NOTE | 2017-08-24 11:07 | PN ---
GI Progress Note Subjective: GI NOte: I explained to Stella that her bleeding is likely due to small bowel vascular ectasias that were not detected by capsule endoscopy 3 years ago. Her last iron parameters were low when last tested in 2017. Iron constipates her. Will be transfused again today so will also order an Venofer infusion before discharge. 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 Will give iron load to allow her bone marrow to try to keep up. If her Hb continues to drop would refer for a repeat capsule endoscopy. Code(s): K92.2 - GASTROINTESTINAL HEMORRHAGE, UNSPECIFIED Qualifiers: GI bleed type/associated pathology: angiodysplasia of stomach and duodenum Qualified Code(s): K31.811 - Angiodysplasia of stomach and duodenum with bleeding (2) Colon adenomas Code(s): D12.6 - BENIGN NEOPLASM OF COLON, UNSPECIFIED (3) Diverticulosis Code(s): K57.90 - DVRTCLOS OF INTEST, PART UNSP, W/O PERF OR ABSCESS W/O BLEED (4) Cholelithiasis Code(s): K80.20 - CALCULUS OF GALLBLADDER W/O CHOLECYSTITIS W/O OBSTRUCTION (5) Renal stones Code(s): N20.0 - CALCULUS OF KIDNEY (6) Legally blind Code(s): H54.8 - LEGAL BLINDNESS, DEFINED IN [place]
[2017-08-24] MEDS: metFORMIN HCL 500 MG TABLET (FP) PO SCH ×2 (12:08→18:18)
[2017-08-24 18:06] VITALS: BP 125/68; PULSE 80; TEMP 98.2
== END 2017-08-24 18:56 | disposition home health service (06) | DRG 811 ==
LOC: JER 11:28 → JERBED 15:12 → OBSVTOIN 16:12 → J4W 08-17 04:39
PROVIDERS: ADMIT Internal Medicine; ATTEND Internal Medicine
PROC: 30233N1 Transfusion of Nonautologous Red Blood Cells into Peripheral Vein, Percutaneous Approach (ICD-10-PCS; principal; 2017-08-16)
PROC: 0DJ08ZZ Inspection of Upper Intestinal Tract, Via Natural or Artificial Opening Endoscopic (ICD-10-PCS; 2017-08-19)
PROC: 0DJD8ZZ Inspection of Lower Intestinal Tract, Via Natural or Artificial Opening Endoscopic (ICD-10-PCS; 2017-08-22)
DX: D64.9 Anemia, unspecified (principal); K31.811 Angiodysplasia of stomach and duodenum with bleeding; I50.32 Chronic diastolic (congestive) heart failure; E78.5 Hyperlipidemia, unspecified; I25.10 Atherosclerotic heart disease of native coronary artery without angina pectoris; K21.9 Gastro-esophageal reflux disease without esophagitis; K57.90 Diverticulosis of intestine, part unspecified, without perforation or abscess without bleeding; K76.0 Fatty (change of) liver, not elsewhere classified; F32.9 Major depressive disorder, single episode, unspecified; D50.0 Iron deficiency anemia secondary to blood loss (chronic); E03.9 Hypothyroidism, unspecified; M19.90 Unspecified osteoarthritis, unspecified site; J44.9 Chronic obstructive pulmonary disease, unspecified; H54.8 Legal blindness, as defined in USA; D12.6 Benign neoplasm of colon, unspecified; K29.60 Other gastritis without bleeding; I11.0 Hypertensive heart disease with heart failure; G47.39 Other sleep apnea; I65.29 Occlusion and stenosis of unspecified carotid artery; K64.8 Other hemorrhoids; I08.2 Rheumatic disorders of both aortic and tricuspid valves; K44.9 Diaphragmatic hernia without obstruction or gangrene; E11.319 Type 2 diabetes mellitus with unspecified diabetic retinopathy without macular edema; H40.9 Unspecified glaucoma; H35.30 Unspecified macular degeneration; Z87.442 Personal history of urinary calculi; Z95.2 Presence of prosthetic heart valve
CPT/HCPCS: 36415; 36430; 36511; 71045-TC-FY; 78290-TC; 80048; 80053; 82272; 82550; 82962; 83735; 83880; 84100; 84484; 85025; 85027; 85610; 86850; 86900; 86901; 86922; 93005; 93010; 94640; 97116-GP; 97161-GP; 99285-25; A9512; G0378; J1756; J7030; P9038; P9058

== ENCOUNTER 2017-10-24 12:03 | Emergency (ER) | payer OTHER | END 2017-10-24 16:38 | disposition home or self-care (01) | LOC: JER 12:03 | PROC: 3E0F7GC Introduction of Other Therapeutic Substance into Respiratory Tract, Via Natural or Artificial Opening (ICD-10-PCS; principal; 2017-10-24) | CPT/HCPCS: 36415; 71045-TC-FY; 80053; 83735; 84100; 84439; 84443; 85025; 87804; 93005; 93010; 94640; 99285-25; J7620 ==

== ENCOUNTER 2017-11-16 10:09 | Observation (INO) | payer OTHER ==
--- NOTE | 2017-11-16 11:05 | PDOC ---
History of Present Illness - General History Source: Patient, Family Exam Limitations: No Limitations - History of Present Illness Initial Comments: 11/16/17 11:37 The patient is an 82-year-old female, with a significant past medical history of diastolic HF (s/p TAVR), diabetes, HTN, and hyperlipidemia, who presents to the emergency department with weakness, palpitations, and chest pressure. The patient was seen in the ED on 10/24/17 for fever, weakness, diarrhea, and loss of appetite which was determined to be a viral infection. She was discharged and advised to follow up with Dr. Tom. The patient was sent to [facility] for a cardiac catheterization on Tuesday11/11/17 which was normal. She reports to the ED today because she was experiencing weakness and palpitations this morning. On exam, she states that she is experiencing chest pressure. The patient denies any fever, chills, nausea, vomiting, diarrhea, or abdominal pain. She denies any shortness of breath. She denies any dysuria, frequency, urgency, or hesitancy. Allergies: Quinine, Sulfonamide antibiotics. PCP: Dr. Jorje Tom Regulatory Affairs Strategy Specialist: Dr. Benz <Mariya Sahni - Last Filed: 11/16/17 13:20> <Africa Roth - Last Filed: 11/16/17 16:51> - General Chief Complaint: Weakness Stated Complaint: WEAKNESS Time Seen by Provider: 11/16/17 10:37 Past History <Mariya Sahni - Last Filed: 11/16/17 13:20> - Past Medical History Anemia: Yes Asthma: Yes Cancer: No Cardiac Disorders: Yes (ashd) CVA: No COPD: Yes (emphysema) CHF: No Dementia: No Diabetes: (NIDDM) GI Disorders: Yes (Diverticulosis,gerd, POLYPS) Disorders: No HTN: No Hypercholesterolemia: Yes (takes lipitor) Liver Disease: (FATTY LIVER) Psychiatric Problems: Yes (derpression) Seizures: No Thyroid Disease: Yes - Surgical History Abdominal Surgery: Yes (appendectomy,hernia repair) Appendectomy: Yes Cardiac Surgery: Yes (aortic vaulve replacement) Cholecystectomy: No Lung Surgery: No Neurologic Surgery: No Orthopedic Surgery: No - Suicide/Smoking/Psychosocial Hx Smoking Status: Yes (1972) Smoking History: Never smoked Have you smoked in the past 12 months: No Number of Cigarettes Smoked Daily: 0 If you are a former smoker, when did you quit?: 1972 Information on smoking cessation initiated: No 'Breaking Loose' booklet given: 11/23/15 Hx Alcohol Use: No Drug/Substance Use Hx: No Substance Use Type: None Hx Substance Use Treatment: No <GonzalezDaysiAfrica - Last Filed: 11/16/17 16:51> - Past Medical History Allergies/Adverse Reactions: Allergies Allergy/AdvReac Type Severity Reaction Status Date / Time quinine [Quinine] Allergy Mild Rash Verified 08/16/17 11:32 Sulfa (Sulfonamide Allergy Mild Rash Verified 08/16/17 11:32 Antibiotics) [Sulfa(Sulfonamide Antibiotics)] Home Medications: Ambulatory Orders Losartan Potassium [Cozaar] 50 mg PO DAILY 12/18/14 Sitagliptin Phosphate [Januvia] 100 mg PO DAILY 12/18/14 Atorvastatin Ca [Lipitor] 10 mg PO HS #1 tablet 12/22/14 Cholecalciferol (Vitamin D3) [Vitamin D3 -] 1,000 unit PO DAILY 03/10/16 Fluticasone/Salmeterol [Advair 250-50 Diskus] 1 each IH BID 04/04/16 Latanoprost 0.005% Eye Drops [Xalatan 0.005% Eye Drops -] 1 drop OU HS 07/25/16 Ascorbic Acid [Vitamin C] 500 mg PO DAILY 05/10/17 Levothyroxine [Synthroid -] 0.025 mcg PO DAILY 05/10/17 Nitroglycerin 0.4 mg SL PRN 05/10/17 Sertraline HCl [Zoloft] 25 mg PO HS 05/10/17 Carvedilol [Coreg -] 6.25 mg PO BID #60 tablet 05/13/17 Spironolactone [Aldactone] 25 mg PO DAILY #30 tablet 05/13/17 Calcium 250Mg/Vit-D 125 Units [Oscal 250 mg+D -] 1 combo PO DAILY 10/24/17 Ferrous Sulfate 325 mg PO DAILY 10/24/17 Metformin HCl [Glucophage] 1,000 mg PO DAILY 10/24/17 [place]-3/Dha/Epa/Fish Oil [Fish Oil [place]-3 EC 1,200 mg] 1 each PO DAILY Review of Systems - Review of Systems Able to Perform ROS?: Yes Comments:: 11/16/17 11:38 GENERAL/CONSTITUTIONAL: No fever or chills. No weakness. HEAD, EYES, EARS, NOSE AND THROAT: No change in vision. No ear pain or discharge. No sore throat. CARDIOVASCULAR: (+)chest pressure, palpitations. No shortness of breath. RESPIRATORY: No cough, wheezing, or hemoptysis. GASTROINTESTINAL: No nausea, vomiting, diarrhea or constipation. GENITOURINARY: No dysuria, frequency, or change in urination. MUSCULOSKELETAL: No joint or muscle swelling or pain. No neck or back pain. SKIN: No rash NEUROLOGIC: (+)Weakness. No headache, vertigo, loss of consciousness. ENDOCRINE: No increased thirst. No abnormal weight change. HEMATOLOGIC/LYMPHATIC: No anemia, easy bleeding, or history of blood clots. ALLERGIC/IMMUNOLOGIC: No hives or skin allergy. <Mariya Sahni - Last Filed: 11/16/17 13:20> *Physical Exam - Vital Signs Last Vital Signs Temp Pulse Resp BP Pulse Ox 98 F 63 17 105/64 100 11/16/17 11:26 11/16/17 11:26 11/16/17 11:26 11/16/17 11:26 11/16/17 11:27 <Mariya Sahni - Last Filed: 11/16/17 13:20> - Vital Signs Last Vital Signs Temp Pulse Resp BP Pulse Ox 98.0 F 70 18 115/64 98 11/16/17 10:30 11/16/17 10:30 11/16/17 10:30 11/16/17 10:30 11/16/17 10:30 - Physical Exam Comments: GENERAL: Awake, alert, and fully oriented, in no acute distress. +Mild pallor. HEAD: No signs of trauma EYES: PERRLA, EOMI, sclera anicteric, conjunctiva clear ENT: Auricles normal inspection, hearing grossly normal, nares patent, oropharynx clear without exudates. Moist mucosa NECK: Normal ROM, supple, no lymphadenopathy, JVD, or masses LUNGS: Breath sounds equal, clear to auscultation bilaterally. No wheezes, and no crackles HEART: Regular rate and rhythm, normal S1 and S2, no murmurs, rubs or gallops ABDOMEN: Soft, nontender, normoactive bowel sounds. No guarding, no rebound. No masses EXTREMITIES: Normal range of motion, no edema. No clubbing or cyanosis. No cords, erythema, or tenderness NEUROLOGICAL: Cranial nerves II through XII grossly intact. Normal speech. Motor and sensation intact. SKIN: Warm, Dry, normal turgor, no rashes or lesions noted. <Africa Roth - Last Filed: 11/16/17 16:51> Heart Score/ECG Review - ECG Impressions Comment:: EKG read 11:33- NSR 63 bpm, LAFB <Africa Roth - Last Filed: 11/16/17 16:51> ED Treatment Course - LABORATORY CBC & Chemistry Diagram: 11/16/17 11:15 11/16/17 11:15 <Mariya Sahni - Last Filed: 11/16/17 13:20> - LABORATORY CBC & Chemistry Diagram: 11/16/17 11:15 11/16/17 11:15 <Africa Roth - Last Filed: 11/16/17 16:51> Medical Decision Making - Medical Decision Making 11/16/17 13:20 Dr. Cabral was paged and notified via phone service. <Mariya Sahni - Last Filed: 11/16/17 13:20> - Medical Decision Making Initial DDx included valvular dysfunction, electrolyte imbalance, ACS, and less likely a infectious process. Labs obtained, no acute findings. D/w Dr. Cabral, covering Dr. Benz, recommended placement on obs. D/w Dr. Crawford for admission. <Africa Roth - Last Filed: 11/16/17 16:51> *DC/Admit/Observation/Transfer - Attestations Scribe Attestion: 11/16/17 11:39 Documentation prepared by Mariya Sahni, acting as medical referral coordinator for Africa Roth MD. <Mariya Sahni - Last Filed: 11/16/17 13:20> - Discharge Dispostion Decision to Admit order: Yes <Africa Roth - Last Filed: 11/16/17 16:51> Diagnosis at time of Disposition: Palpitations, Chest pressure - Discharge Dispostion Condition at time of disposition: Stable
[2017-11-16 12:34] LABS: BASO % 0.6 % (0-2.0); EOS % 2.3 % (0-4.5); HEMATOCRIT 29.9 % (32.4-45.2); HEMOGLOBIN 10.3 GM/dL (10.7-15.3); LYMPH % 23.1 % (8-40); MCHC 34.3 g/dl (32.0-36.0); MEAN CELL VOLUME 90.3 fl (80-96); MEAN PLT VOLUME 8.5 fl (7.5-11.1); MONO % 10.2 % (3.8-10.2); NEUT % 63.8 % (42.8-82.8); PLATELET COUNT 239 K/MM3 (134-434); RBC 3.31 M/mm3 (3.60-5.2); RDW 14.7 % (11.6-15.6)
[2017-11-16 12:55] LABS: ALBUMIN 3.6 g/dl (3.4-5.0); ANION GAP 8 (8-16); BILIRUBIN,TOTAL 0.5 mg/dL (0.2-1.0); BLOOD UREA NITROGEN 19 mg/dL (7-18); CALCIUM 8.8 mg/dL (8.5-10.1); CHLORIDE 103 mmol/L (98-107); CO2 27 mmol/L (21-32); GLUCOSE,RANDOM 112 mg/dL (74-106); POTASSIUM 4.9 mmol/L (3.5-5.1); SGOT/AST 13 U/L (15-37); SGPT/ALT 15 U/L (12-78); SODIUM 138 mmol/L (136-145)
[2017-11-16 13:03] LABS: ALK PHOS 48 U/L (45-117)
[2017-11-16 15:12] LABS: URINE APPEARANCE CLEAR; URINE BILIRUBIN NEGATIVE (<2.0 mg/dL); URINE COLOR YELLOW; URINE GLUCOSE (UA) NEGATIVE (NEGATIVE); URINE KETONE NEGATIVE (NEGATIVE); URINE LEUK ESTERASE NEGATIVE (NEGATIVE); URINE NITRITE NEGATIVE (NEGATIVE); URINE PROTEIN NEGATIVE (NEGATIVE); URINE UROBILINOGEN NEGATIVE mg/dL (0.2-1.0)
[2017-11-16] MEDS ORDERED: NITROGLYCERIN SUBLINGUAL 1/150 0.4 MG TAB SL PRN (16:15)
--- NOTE | 2017-11-16 16:16 | HP ---
Admitting History and Physical - Primary Care Physician PCP: Jorje Tom - Admission Chief Complaint: I still feel weak History of Present Illness: Ms Valadez is a very pleasant 82 year old female who comes in with worsening weakness. She has been having progressive weakness for months now but it has steadily gotten worse over this past month. It has progressed to the point where she says she cannot even walk more than approximately 10 feet before becoming weak and needing to rest. She has presented to multiple ERs over the past month without finding major results aside from low electrolytes. She has been followed closely as an outpatient and has an appointment with Dr Benz tomorrow. However she had lightheadedness and felt like she was about to fall and with the weakness that is what prompted her to come in. Currently at rest she is without complaint. She denies fevers, chills, passing out, chest pain or pressure, shortness of breath, nausea, vomiting, diarrhea, constipation, difficulty or pain on urination, or swelling. History Source: Patient Limitations to Obtaining History: No Limitations - Past Medical History Cardiovascular: Yes: Aortic Stenosis (resolved with TAVR), CHF (last DON had good systolic function, 2016), HTN, Hyperlipdemia, 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), Mitral Stenosis (probable MS) Pulmonary: Yes: COPD, Sleep Apnea Gastrointestinal: Yes: Diverticulosis, Hiatal Hernia, Other (multiple colon adenomas removed 2014, 2015, capsule endoscopy Dr Olvera 2015 unrevealing) Hepatobiliary: Yes: Cholelithiasis, Other (fatty liver) Renal/: Yes: Renal Calculi Heme/Onc: Yes: Anemia Musculoskeletal: Yes: Osteoarthritis Endocrine: Yes: Diabetes Mellitus (with retinopathy), Hypothyroidism - Past Surgical History Past Surgical History: Yes: Appendectomy (ruptured), Cataract Removal, Colonoscopy, Hernia Repair, Tonsillectomy, Upper Endoscopy, Valve Replacement - Smoking History Smoking history: Never smoked Have you smoked in the past 12 months: No Aproximately how many cigarettes per day: 0 If you are a former smoker, when did you quit?: 1972 - Alcohol/Substance Use Hx Alcohol Use: No History of Substance Use: reports: None - Social History Usual Living Arrangement: Yes: Alone ADL: Independent History of Recent Travel: No Home Medications - Allergies Allergies/Adverse Reactions: Allergies Allergy/AdvReac Type Severity Reaction Status Date / Time quinine [Quinine] Allergy Mild Rash Verified 08/16/17 11:32 Sulfa (Sulfonamide Allergy Mild Rash Verified 08/16/17 11:32 Antibiotics) [Sulfa(Sulfonamide Antibiotics)] - Home Medications Home Medications: Ambulatory Orders Losartan Potassium [Cozaar] 50 mg PO DAILY 12/18/14 Sitagliptin Phosphate [Januvia] 100 mg PO DAILY 12/18/14 Atorvastatin Ca [Lipitor] 10 mg PO HS #1 tablet 12/22/14 Cholecalciferol (Vitamin D3) [Vitamin D3 -] 1,000 unit PO DAILY 03/10/16 Fluticasone/Salmeterol [Advair 250-50 Diskus] 1 each IH BID 04/04/16 Latanoprost 0.005% Eye Drops [Xalatan 0.005% Eye Drops -] 1 drop OU HS 07/25/16 Ascorbic Acid [Vitamin C] 500 mg PO DAILY 05/10/17 Levothyroxine [Synthroid -] 0.025 mcg PO DAILY 05/10/17 Nitroglycerin 0.4 mg SL PRN 05/10/17 Sertraline HCl [Zoloft] 25 mg PO HS 05/10/17 Carvedilol [Coreg -] 6.25 mg PO BID #60 tablet 05/13/17 Spironolactone [Aldactone] 25 mg PO DAILY #30 tablet 05/13/17 Calcium 250Mg/Vit-D 125 Units [Oscal 250 mg+D -] 1 combo PO DAILY 10/24/17 Ferrous Sulfate 325 mg PO DAILY 10/24/17 Metformin HCl [Glucophage] 1,000 mg PO DAILY 10/24/17 [place]-3/Dha/Epa/Fish Oil [Fish Oil [place]-3 EC 1,200 mg] 1 each PO DAILY Family Disease History - Family Disease History Family Disease History: Heart Disease: Mother ( 84 MD, had polio), Son ( multiple eye surgeries), Other: Father (emphysema, 64 of PE) Review of Systems Findings/Remarks: Full review of systems obtained, as per HPI and otherwise negative Physical Examination Vital Signs: Vital Signs Temperature 36.8 C 11/16/17 14:34 Pulse Rate 64 11/16/17 14:34 Respiratory Rate 18 11/16/17 14:34 Blood Pressure 107/45 11/16/17 14:34 O2 Sat by Pulse Oximetry (%) 100 11/16/17 14:34 Constitutional: Yes: Well Nourished, No Distress, Calm Eyes: Yes: Conjunctiva Clear, EOM Intact, PERRL HENT: Yes: Atraumatic, Normocephalic Cardiovascular: Yes: Regular Rate and Rhythm, Murmur. No: Gallop, Rub Respiratory: Yes: Regular, CTA Bilaterally. No: Rales, Rhonchi, Wheezes Gastrointestinal: Yes: Normal Bowel Sounds, Soft. No: Distention, Tenderness Extremities: Yes: WNL Edema: No Labs: CBC, BMP 11/16/17 11:15 11/16/17 11:15 Imaging - Results EKG: Image Reviewed Problem List - Problems (1) Mitral valve regurgitation Assessment/Plan: -concern that this is cause of weakness -admit to hospital under observation -consult cardiology to evaluate -monitor on telemetry Code(s): I34.0 - NONRHEUMATIC MITRAL (VALVE) INSUFFICIENCY Qualifiers: Cardiac valve disease etiology: nonrheumatic Qualified Code(s): I34.0 - Nonrheumatic mitral (valve) insufficiency (2) Weakness Assessment/Plan: -as above -will consult PT as well Code(s): R53.1 - WEAKNESS (3) Palpitations Assessment/Plan: -monitor on telemetry -consult cardiology Code(s): R00.2 - PALPITATIONS (4) Anemia Assessment/Plan: -at baseline -monitor Code(s): D64.9 - ANEMIA, UNSPECIFIED Qualifiers: Anemia type: iron deficiency Iron deficiency anemia type: chronic blood loss Qualified Code(s): D50.0 - Iron deficiency anemia secondary to blood loss (chronic) (5) CAD (coronary artery disease) Assessment/Plan: -no cp -quiescent -continue home regimen Code(s): I25.10 - ATHSCL HEART DISEASE OF [place] CORONARY ARTERY W/O ANG PCTRS Qualifiers: Coronary Disease-Associated Artery/Lesion type: [place] artery [place] vs. transplanted heart: [place] heart Associated angina: without angina Qualified Code(s): I25.10 - Atherosclerotic heart disease of [place] coronary artery without angina pectoris (6) COPD (chronic obstructive pulmonary disease) Assessment/Plan: -not in exacerbation Code(s): J44.9 - CHRONIC OBSTRUCTIVE PULMONARY DISEASE, UNSPECIFIED Qualifiers: COPD type: unspecified COPD Qualified Code(s): J44.9 - Chronic obstructive pulmonary disease, unspecified (7) Diabetes Assessment/Plan: -continue metformin and januvia -diabetic diet Code(s): E11.9 - TYPE 2 DIABETES MELLITUS WITHOUT COMPLICATIONS Qualifiers: Diabetes mellitus type: type 2 Diabetes mellitus long-term insulin use: without long-term use Diabetes mellitus complication status: with ophthalmic complications Diabetes mellitus complication detail: with diabetic retinopathy (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 Assessment/Plan: -not in exacerbation -continue coreg, aldactone, and losartan -check orthostatics, may need to hold aldactone if positive and hydrate gently Code(s): I38 - ENDOCARDITIS, VALVE UNSPECIFIED; I50.30 - UNSPECIFIED DIASTOLIC ( CONGESTIVE) HEART FAILURE (9) HTN (hypertension) Assessment/Plan: -controlled Code(s): I10 - ESSENTIAL (PRIMARY) HYPERTENSION Qualifiers: Hypertension type: essential hypertension Qualified Code(s): I10 - Essential (primary) hypertension (10) Hyperlipidemia Code(s): E78.5 - HYPERLIPIDEMIA, UNSPECIFIED Qualifiers: Hyperlipidemia type: pure hypercholesterolemia Qualified Code(s): E78.00 - Pure hypercholesterolemia, unspecified; E78.0 - Pure hypercholesterolemia (11) Hypothyroid Assessment/Plan: -continue lovaza and lipitor Code(s): E03.9 - HYPOTHYROIDISM, UNSPECIFIED Qualifiers: Hypothyroidism type: unspecified Qualified Code(s): E03.9 - Hypothyroidism , unspecified (12) S/P TAVR (transcatheter aortic valve replacement) Code(s): Z95.2 - PRESENCE OF PROSTHETIC HEART VALVE
[2017-11-16] MEDS ORDERED: CARVEDILOL 6.25 MG TABLET (FP) PO SCH (22:00)
[2017-11-17] MEDS: SERTRALINE HCL 25 MG TABLET (FP) PO SCH ×2 (00:32→21:38)
[2017-11-17] MEDS: ATORVASTATIN CA 10 MG TABLET (FP) PO SCH ×2 (00:32→21:38)
[2017-11-17] MEDS: BUDESONIDE/FORMETEROL FUMARATE 80/4.5 mcg INHALER IH SCH ×3 (00:41→21:39)
[2017-11-17] MEDS: LATANOPROST 0.005% OPHTH SOLN 2.5ML BOTTLE OU SCH ×2 (00:41→21:40)
[2017-11-17] MEDS: ACETAMINOPHEN 325 MG TABLET (FP) PO PRN ×2 (01:23→21:37)
[2017-11-17] MEDS ORDERED: ACETAMINOPHEN 325 MG TABLET (FP) ONE (01:24)
[2017-11-17] MEDS: LEVOTHYROXINE NA 25 MCG TABLET (FP) PO SCH (07:04)
[2017-11-17] MEDS: sitaGLIPtin PHOSPHATE 100 MG TABLET (FP) PO SCH (07:05)
[2017-11-17] MEDS: metFORMIN HCL 500 MG TABLET (FP) PO SCH (07:05)
[2017-11-17 08:05] LABS: BASO % 0.7 % (0-2.0); EOS % 2.2 % (0-4.5); HEMATOCRIT 31.5 % (32.4-45.2); HEMOGLOBIN 10.7 GM/dL (10.7-15.3); MCH 30.6 pg (25.7-33.7); MCHC 34.1 g/dl (32.0-36.0); MEAN CELL VOLUME 89.6 fl (80-96); MEAN PLT VOLUME 8.2 fl (7.5-11.1); MONO % 10.8 % (3.8-10.2); NEUT % 58.3 % (42.8-82.8); PLATELET COUNT 261 K/MM3 (134-434); RBC 3.51 M/mm3 (3.60-5.2); RDW 14.8 % (11.6-15.6); WHITE BLOOD COUNT 7.8 K/mm3 (4.0-10.0)
[2017-11-17 08:31] LABS: CHLORIDE 102 mmol/L (98-107); POTASSIUM 4.8 mmol/L (3.5-5.1); SODIUM 136 mmol/L (136-145)
[2017-11-17 08:57] LABS: ANION GAP 9 (8-16); BLOOD UREA NITROGEN 20 mg/dL (7-18); CALCIUM 9.2 mg/dL (8.5-10.1); CO2 25 mmol/L (21-32); CREATININE 0.9 mg/dL (0.55-1.02); GLUCOSE,RANDOM 137 mg/dL (74-106); MAGNESIUM 2.2 mg/dL (1.8-2.4); PHOSPHOROUS 3.5 mg/dL (2.5-4.9)
[2017-11-17] MEDS ORDERED: PT OWN MED DRAWER 7, Y5N ONE ×2 (09:45→22:03)
[2017-11-17] MEDS: CARVEDILOL 6.25 MG TABLET (FP) PO SCH ×2 (09:50→21:39)
[2017-11-17] MEDS: SPIRONOLACTONE 25 MG TABLET (FP) PO SCH (09:51)
[2017-11-17] MEDS: LOSARTAN POTASSIUM 50 MG TABLET (FP) PO SCH (09:51)
[2017-11-17] MEDS: FERROUS SO4 325 MG TABLET (FP) PO SCH (09:52)
[2017-11-17] MEDS: OMEGA-3 ACID ETHYL ESTERS (FATTY-ACIDS) 1 GM CAPSULE (FP) PO SCH (09:53)
[2017-11-17] MEDS: ASCORBIC ACID 500 MG TABLET (FP) PO SCH (09:53)
[2017-11-17] MEDS: CALCIUM 250MG/VIT-D 125 UNITS 1 COMBO TABLET PO SCH (09:53)
[2017-11-17] MEDS: CHOLECALCIFEROL (VITAMIN D3) 1,000 UNIT TABLET (FP) PO SCH (09:54)
[2017-11-17] MEDS ORDERED: LOSARTAN POTASSIUM 50 MG TABLET (FP) PO SCH (10:00)
[2017-11-17] MEDS ORDERED: SPIRONOLACTONE 25 MG TABLET (FP) PO SCH (10:00)
--- NOTE | 2017-11-17 10:01 | PN ---
Progress Note, Physician Chief Complaint: Ms Valadez still complains of severe weakness. No cp, sob, n/v. - Current Medication List Current Medications: Active Medications Acetaminophen (Tylenol -) 650 mg PO Q4H PRN PRN Reason: PAIN LEVEL 1-5 Last Admin: 11/17/17 01:23 Dose: 650 mg Ascorbic Acid (Vitamin C -) 500 mg PO DAILY [facility] Last Admin: 11/17/17 09:53 Dose: 500 mg Atorvastatin Calcium (Lipitor -) 10 mg PO HS [facility] Last Admin: 11/17/17 00:32 Dose: 10 mg Budesonide/Formoterol Fumarate (Symbicort 80/4.5mcg -) 2 puff IH BID [facility] Last Admin: 11/17/17 09:52 Dose: 2 puff Calcium/Vitamin D (Oscal 250 Mg+D -) 1 tab PO DAILY [facility] Last Admin: 11/17/17 09:53 Dose: 1 tab Carvedilol (Coreg -) 6.25 mg PO BID [facility] Last Admin: 11/17/17 09:50 Dose: Not Given Cholecalciferol (Vitamin D3 -) 1,000 unit PO DAILY [facility] Last Admin: 11/17/17 09:54 Dose: 1,000 unit Ferrous Sulfate (Feosol -) 325 mg PO DAILY [facility] Last Admin: 11/17/17 09:52 Dose: 325 mg Latanoprost (Xalatan 0.005% Eye Drops -) 1 drop OU [facility] Last Admin: 11/17/17 00:41 Dose: 1 drp Levothyroxine Sodium (Synthroid -) 25 mcg PO DAILY@0700 [facility] Last Admin: 11/17/17 07:04 Dose: 25 mcg Losartan Potassium (Cozaar -) 50 mg PO DAILY [facility] Last Admin: 11/17/17 09:51 Dose: Not Given Metformin HCl (Glucophage -) 1,000 mg PO ACBK [facility] Last Admin: 11/17/17 07:05 Dose: 1,000 mg Nitroglycerin (Nitrostat -) 0.4 mg SL DAILY PRN PRN Reason: SHORTNESS OF BREATH [id number] Ethyl Esters (Lovaza -) 1 gm PO DAILY [facility] Last Admin: 11/17/17 09:53 Dose: 1 gm Sertraline HCl (Zoloft -) 25 mg PO HS [facility] Last Admin: 11/17/17 00:32 Dose: 25 mg Sitagliptin Phosphate (Januvia -) 100 mg PO ACBK [facility] Last Admin: 11/17/17 07:05 Dose: 100 mg Spironolactone (Aldactone -) 25 mg PO DAILY [facility] Last Admin: 11/17/17 09:51 Dose: Not Given - Objective Vital Signs: Vital Signs Temperature 36.6 C 11/17/17 08:21 Pulse Rate 67 11/17/17 09:49 Respiratory Rate 16 11/17/17 09:49 Blood Pressure 105/63 11/17/17 09:49 O2 Sat by Pulse Oximetry (%) 98 11/17/17 09:49 Constitutional: Yes: Well Nourished, No Distress, Calm Cardiovascular: Yes: Regular Rate and Rhythm. No: Gallop, Murmur, Rub Respiratory: Yes: Regular, CTA Bilaterally. No: Rales, Rhonchi, Wheezes Gastrointestinal: Yes: Normal Bowel Sounds, Soft. No: Distention, Tenderness Extremities: Yes: WNL Edema: No Labs: CBC, BMP 11/17/17 07:21 11/17/17 07:21 Problem List - Problems (1) Mitral valve regurgitation Code(s): I34.0 - NONRHEUMATIC MITRAL (VALVE) INSUFFICIENCY Qualifiers: Cardiac valve disease etiology: nonrheumatic Qualified Code(s): I34.0 - Nonrheumatic mitral (valve) insufficiency (2) Weakness Code(s): R53.1 - WEAKNESS (3) Palpitations Code(s): R00.2 - PALPITATIONS (4) Anemia Code(s): D64.9 - ANEMIA, UNSPECIFIED Qualifiers: Anemia type: iron deficiency Iron deficiency anemia type: chronic blood loss Qualified Code(s): D50.0 - Iron deficiency anemia secondary to blood loss (chronic) (5) CAD (coronary artery disease) Code(s): I25.10 - ATHSCL HEART DISEASE OF [place] CORONARY ARTERY W/O ANG PCTRS Qualifiers: Coronary Disease-Associated Artery/Lesion type: [place] artery [place] vs. transplanted heart: [place] heart Associated angina: without angina Qualified Code(s): I25.10 - Atherosclerotic heart disease of [place] coronary artery without angina pectoris (6) COPD (chronic obstructive pulmonary disease) Code(s): J44.9 - CHRONIC OBSTRUCTIVE PULMONARY DISEASE, UNSPECIFIED Qualifiers: COPD type: unspecified COPD Qualified Code(s): J44.9 - Chronic obstructive pulmonary disease, unspecified (7) Diabetes Code(s): E11.9 - TYPE 2 DIABETES MELLITUS WITHOUT COMPLICATIONS Qualifiers: Diabetes mellitus type: type 2 Diabetes mellitus [place] insulin use: without snf use Diabetes mellitus complication status: with ophthalmic complications Diabetes mellitus complication detail: with diabetic retinopathy (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 Code(s): I38 - ENDOCARDITIS, VALVE UNSPECIFIED; I50.30 - UNSPECIFIED DIASTOLIC ( CONGESTIVE) HEART FAILURE (9) HTN (hypertension) Code(s): I10 - ESSENTIAL (PRIMARY) HYPERTENSION Qualifiers: Hypertension type: essential hypertension Qualified Code(s): I10 - Essential (primary) hypertension (10) Hyperlipidemia Code(s): E78.5 - HYPERLIPIDEMIA, UNSPECIFIED Qualifiers: Hyperlipidemia type: pure hypercholesterolemia Qualified Code(s): E78.00 - Pure hypercholesterolemia, unspecified; E78.0 - Pure hypercholesterolemia (11) Hypothyroid Code(s): E03.9 - HYPOTHYROIDISM, UNSPECIFIED Qualifiers: Hypothyroidism type: unspecified Qualified Code(s): E03.9 - Hypothyroidism , unspecified (12) S/P TAVR (transcatheter aortic valve replacement) Code(s): Z95.2 - PRESENCE OF PROSTHETIC HEART VALVE Assessment/Plan (1) Mitral valve regurgitation Assessment/Plan: -awaiting cardiology recommendations -continue current management Code(s): I34.0 - NONRHEUMATIC MITRAL (VALVE) INSUFFICIENCY Qualifiers: Cardiac valve disease etiology: nonrheumatic Qualified Code(s): I34.0 - Nonrheumatic mitral (valve) insufficiency (2) Weakness Assessment/Plan: -? if secondary to mitral regurgitation -awaiting cardiology recommendations -PT consulted Code(s): R53.1 - WEAKNESS (3) Palpitations Assessment/Plan: -monitor on telemetry -resoled currently Code(s): R00.2 - PALPITATIONS (4) Anemia Assessment/Plan: -at baseline -monitor Code(s): D64.9 - ANEMIA, UNSPECIFIED Qualifiers: Anemia type: iron deficiency Iron deficiency anemia type: chronic blood loss Qualified Code(s): D50.0 - Iron deficiency anemia secondary to blood loss (chronic) (5) CAD (coronary artery disease) Assessment/Plan: -no cp -quiescent -continue home regimen Code(s): I25.10 - ATHSCL HEART DISEASE OF [place] CORONARY ARTERY W/O ANG PCTRS Qualifiers: Coronary Disease-Associated Artery/Lesion type: [place] artery [place] vs. transplanted heart: [place] heart Associated angina: without angina Qualified Code(s): I25.10 - Atherosclerotic heart disease of [place] coronary artery without angina pectoris (6) COPD (chronic obstructive pulmonary disease) Assessment/Plan: -not in exacerbation Code(s): J44.9 - CHRONIC OBSTRUCTIVE PULMONARY DISEASE, UNSPECIFIED Qualifiers: COPD type: unspecified COPD Qualified Code(s): J44.9 - Chronic obstructive pulmonary disease, unspecified (7) Diabetes Assessment/Plan: -continue metformin and januvia -diabetic diet Code(s): E11.9 - TYPE 2 DIABETES MELLITUS WITHOUT COMPLICATIONS Qualifiers: Diabetes mellitus type: type 2 Diabetes mellitus [place] insulin use: without snf use Diabetes mellitus complication status: with ophthalmic complications Diabetes mellitus complication detail: with diabetic retinopathy (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 Assessment/Plan: -not in exacerbation -continue coreg, aldactone, and losartan Code(s): I38 - ENDOCARDITIS, VALVE UNSPECIFIED; I50.30 - UNSPECIFIED DIASTOLIC ( CONGESTIVE) HEART FAILURE (9) HTN (hypertension) Assessment/Plan: -controlled Code(s): I10 - ESSENTIAL (PRIMARY) HYPERTENSION Qualifiers: Hypertension type: essential hypertension Qualified Code(s): I10 - Essential (primary) hypertension (10) Hyperlipidemia Code(s): E78.5 - HYPERLIPIDEMIA, UNSPECIFIED Qualifiers: Hyperlipidemia type: pure hypercholesterolemia Qualified Code(s): E78.00 - Pure hypercholesterolemia, unspecified; E78.0 - Pure hypercholesterolemia (11) Hypothyroid Assessment/Plan: -continue lovaza and lipitor Code(s): E03.9 - HYPOTHYROIDISM, UNSPECIFIED Qualifiers: Hypothyroidism type: unspecified Qualified Code(s): E03.9 - Hypothyroidism , unspecified (12) S/P TAVR (transcatheter aortic valve replacement) Code(s): Z95.2 - PRESENCE OF PROSTHETIC HEART VALVE
--- NOTE | 2017-11-17 11:40 | CON.CARD ---
Consult Consult Specialty:: Cardiology Referred by:: Dr. Crawford (Patient of Dr. Jorje Tom) Reason for Consultation:: Cardiac evaluation - History of Present Illness Chief Complaint: Generalized weakness and fatigue History of Present Illness: Patient is an 82 year old female well known to our service (sees Dr. Kezia Benz in the office) with underlying history of severe , s/p TAVR (23 mm Qian 3) in 2017 at [facility] who developed significant mitral valve regurgitation for which she was re-evaluated by Dr. Rosita Escamilla at [facility] and deemed not a candidate for mitral valve surgery. She saw Dr. Benz in the office in September of this year. She continued to have progressive weakness and fatigue and even was admitted to [facility] to be transfused PRBC. She was admitted yesterday with increased fatigue and weakness. H/H appears stable. She also complained of chest burning sensation from neck to epigastium and also has intermittent palpitations. She complains of intermittent dyspnea on exertion. Denies paroxysmal nocturnal dyspnea or orthopnea. Denies fever or chills. Denies nausea, vomiting or abdominal pain. Denies headache or dizziness. He was treated with antibiotic earlier this year due to pneumonia. Cardiology consultation was called for further evaluation. Other history includes CHF, HTN , hypercholesterolemia, COPD, sleep apnea, hiatal hernia, adenocarcinoma of the colon, diabetes mellitus and hypothyoidism. - History Source History Provided By: Patient, Medical Record Limitations to Obtaining History: No Limitations - Past Medical History Cardio/Vascular: Yes: Aortic Stenosis (S/P TAVR), CHF, HTN, Hyperlipdemia, 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) Pulmonary: Yes: COPD, Sleep Apnea Gastrointestinal: Yes: Diverticulosis, Hiatal Hernia, Other (multiple colon adenomas removed 2014, 2015, capsule endoscopy Dr Olvera 2016 unrevealing) Hepatobiliary: Yes: Cholelithiasis, Other (fatty liver) Renal/: Yes: Renal Calculi Musculoskeletal: Yes: Osteoarthritis Endocrine: Yes: Diabetes Mellitus (with retinopathy), Hypothyroidism Additional Medical History: Legally blind with diabetic retinopathy, macular degeneration and glaucoma - Past Surgical History Past Surgical History: Yes: Appendectomy (ruptured appendix), Cataract Removal, Colonoscopy, Hernia Repair, Tonsillectomy, Upper Endoscopy, Valve Replacement - Alcohol/Substance Use Hx Alcohol Use: No History of Substance Use: reports: None - Smoking History Smoking history: Never smoked Have you smoked in the past 12 months: No Aproximately how many cigarettes per day: 0 If you are a former smoker, when did you quit?: 1972 - Social History ADL: Independent History of Recent Travel: No Home Medications - Allergies Allergies/Adverse Reactions: Allergies Allergy/AdvReac Type Severity Reaction Status Date / Time quinine [Quinine] Allergy Mild Rash Verified 08/16/17 11:32 Sulfa (Sulfonamide Allergy Mild Rash Verified 08/16/17 11:32 Antibiotics) [Sulfa(Sulfonamide Antibiotics)] - Home Medications Home Medications: Ambulatory Orders Losartan Potassium [Cozaar] 50 mg PO DAILY 12/18/14 Sitagliptin Phosphate [Januvia] 100 mg PO DAILY 12/18/14 Atorvastatin Ca [Lipitor] 10 mg PO HS #1 tablet 12/22/14 Cholecalciferol (Vitamin D3) [Vitamin D3 -] 1,000 unit PO DAILY 03/10/16 Fluticasone/Salmeterol [Advair 250-50 Diskus] 1 each IH BID 04/04/16 Latanoprost 0.005% Eye Drops [Xalatan 0.005% Eye Drops -] 1 drop OU HS 07/25/16 Ascorbic Acid [Vitamin C] 500 mg PO DAILY 05/10/17 Levothyroxine [Synthroid -] 0.025 mcg PO DAILY 05/10/17 Nitroglycerin 0.4 mg SL PRN 05/10/17 Sertraline HCl [Zoloft] 25 mg PO HS 05/10/17 Carvedilol [Coreg -] 6.25 mg PO BID #60 tablet 05/13/17 Spironolactone [Aldactone] 25 mg PO DAILY #30 tablet 05/13/17 Calcium 250Mg/Vit-D 125 Units [Oscal 250 mg+D -] 1 combo PO DAILY 10/24/17 Ferrous Sulfate 325 mg PO DAILY 10/24/17 Metformin HCl [Glucophage] 1,000 mg PO DAILY 10/24/17 Benton-3/Dha/Epa/Fish Oil [Fish Oil Benton-3 EC 1,200 mg] 1 each PO DAILY Family Disease History - Family Disease History Family Disease History: Heart Disease: Mother ( 84 [place], had polio), Son ( multiple eye surgeries), Other: Father (emphysema, 64 of PE) Review of Systems - Review of Systems Constitutional: reports: Loss of Appetite, Malaise, Weakness. denies: Chills, Fever Cardiovascular: reports: Chest Pain, Palpitations, Shortness of Breath Respiratory: reports: SOB. denies: Cough, Hemoptysis, Orthopnea, PND Gastrointestinal: denies: Abdominal Pain, Constipation, Diarrhea, Melena, Nausea , Rectal Bleeding, Vomiting Musculoskeletal: denies: Back Pain, Joint Pain Neurological: reports: Weakness. denies: Dizziness, Headache, Seizure, Syncope Vital Signs: Vital Signs Temperature 97.9 F 11/17/17 08:21 Pulse Rate 69 11/17/17 11:29 Respiratory Rate 16 11/17/17 11:29 Blood Pressure 116/59 11/17/17 11:29 O2 Sat by Pulse Oximetry (%) 96 11/17/17 11:29 Neck: Yes: Supple Respiratory: Yes: Diminished Gastrointestinal: Yes: Normal Bowel Sounds, Soft. No: Tenderness Cardiovascular: Yes: Regular Rate and Rhythm JVD: No Carotid Bruit: No PMI: Non-Displaced Heart Sounds: Yes: S1, S2. No: Gallop Murmur: Yes: Systolic Murmur (2/6 SM LSB and apex, soft AIRAM), Grade 2 Edema: No - Other Data Labs, Other Data: CBC, BMP 11/17/17 07:21 11/17/17 07:21 Troponin, BNP 11/16/17 11:15 Troponin I < 0.02 Laboratory Results - last 24 hr 11/16/17 11/16/17 11/16/17 11:15 11:15 11:15 WBC 7.0 RBC 3.31 L Hgb 10.3 L D Hct 29.9 L MCV 90.3 MCH 31.0 MCHC 34.3 RDW 14.7 Plt Count 239 MPV 8.5 D Neutrophils % 63.8 Lymphocytes % 23.1 D Monocytes % 10.2 Eosinophils % 2.3 D Basophils % 0.6 Nucleated RBC % 0 Sodium 138 Potassium 4.9 Chloride 103 Carbon Dioxide 27 Anion Gap 8 BUN 19 H Creatinine 1.0 Creat Clearance w eGFR 52.95 POC Glucometer Random Glucose 112 H Calcium 8.8 Phosphorus Magnesium Total Bilirubin 0.5 D AST 13 L ALT 15 Alkaline Phosphatase 48 Creatine Kinase 30 Troponin I < 0.02 Total Protein 7.0 Albumin 3.6 TSH 2.35 Urine Color Urine Appearance Urine pH Ur Specific Rand Urine Protein Urine Glucose (UA) Urine Ketones Urine Blood Urine Nitrite Urine Bilirubin Urine Urobilinogen Ur Leukocyte Esterase Blood Type A POSITIVE Antibody Screen Negative 11/16/17 11/17/17 11/17/17 14:50 07:21 07:21 WBC 7.8 RBC 3.51 L Hgb 10.7 Hct 31.5 L MCV 89.6 MCH 30.6 MCHC 34.1 RDW 14.8 Plt Count 261 MPV 8.2 Neutrophils % 58.3 Lymphocytes % 28.0 D Monocytes % 10.8 H Eosinophils % 2.2 Basophils % 0.7 Nucleated RBC % 0 Sodium 136 Potassium 4.8 Chloride 102 Carbon Dioxide 25 Anion Gap 9 BUN 20 H Creatinine 0.9 Creat Clearance w eGFR POC Glucometer Random Glucose 137 H Calcium 9.2 Phosphorus 3.5 Magnesium 2.2 Total Bilirubin AST ALT Alkaline Phosphatase Creatine Kinase Troponin I Total Protein Albumin TSH Urine Color Yellow Urine Appearance Clear Urine pH 5.0 D Ur Specific Rand 1.020 Urine Protein Negative Urine Glucose (UA) Negative Urine Ketones Negative Urine Blood Negative Urine Nitrite Negative Urine Bilirubin Negative Urine Urobilinogen Negative Ur Leukocyte Esterase Negative Blood Type Antibody Screen Imaging - Results Chest X-ray: Report Reviewed (Slight increase interstitial marking) EKG: Report Reviewed Problem List - Problems (1) Chest pressure Code(s): R07.89 - OTHER CHEST PAIN (2) Palpitations Code(s): R00.2 - PALPITATIONS (3) Anemia Code(s): D64.9 - ANEMIA, UNSPECIFIED Qualifiers: Anemia type: iron deficiency Iron deficiency anemia type: chronic blood loss Qualified Code(s): D50.0 - Iron deficiency anemia secondary to blood loss (chronic) (4) Reactive airway disease without complication Code(s): J45.909 - UNSPECIFIED ASTHMA, UNCOMPLICATED Qualifiers: Asthma severity: mild Asthma persistence: intermittent Qualified Code(s) : J45.20 - Mild intermittent asthma, uncomplicated (5) Renal stones Code(s): N20.0 - CALCULUS OF KIDNEY (6) Aortic stenosis Code(s): I35.0 - NONRHEUMATIC AORTIC (VALVE) STENOSIS Qualifiers: Cardiac valve disease etiology: nonrheumatic Qualified Code(s): I35.0 - Nonrheumatic aortic (valve) stenosis (7) CAD (coronary artery disease) Code(s): I25.10 - ATHSCL HEART DISEASE OF [place] CORONARY ARTERY W/O ANG PCTRS Qualifiers: Coronary Disease-Associated Artery/Lesion type: [place] artery [place] vs. transplanted heart: [place] heart Associated angina: without angina Qualified Code(s): I25.10 - Atherosclerotic heart disease of [place] coronary artery without angina pectoris (8) COPD (chronic obstructive pulmonary disease) Code(s): J44.9 - CHRONIC OBSTRUCTIVE PULMONARY DISEASE, UNSPECIFIED Qualifiers: COPD type: unspecified COPD Qualified Code(s): J44.9 - Chronic obstructive pulmonary disease, unspecified (9) Colon adenomas Code(s): D12.6 - BENIGN NEOPLASM OF COLON, UNSPECIFIED (10) Diabetes Code(s): E11.9 - TYPE 2 DIABETES MELLITUS WITHOUT COMPLICATIONS Qualifiers: Diabetes mellitus type: type 2 Diabetes mellitus half-way insulin use: 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 Diabetes mellitus complication status: with ophthalmic complications Diabetes mellitus complication detail: with diabetic retinopathy (11) Diastolic CHF due to valvular disease Code(s): I38 - ENDOCARDITIS, VALVE UNSPECIFIED; I50.30 - UNSPECIFIED DIASTOLIC ( CONGESTIVE) HEART FAILURE (12) HTN (hypertension) Code(s): I10 - ESSENTIAL (PRIMARY) HYPERTENSION Qualifiers: Hypertension type: essential hypertension Qualified Code(s): I10 - Essential (primary) hypertension (13) Hyperlipidemia Code(s): E78.5 - HYPERLIPIDEMIA, UNSPECIFIED Qualifiers: Hyperlipidemia type: pure hypercholesterolemia Qualified Code(s): E78.00 - Pure hypercholesterolemia, unspecified; E78.0 - Pure hypercholesterolemia (14) Mitral valve regurgitation Code(s): I34.0 - NONRHEUMATIC MITRAL (VALVE) INSUFFICIENCY Qualifiers: Cardiac valve disease etiology: nonrheumatic Qualified Code(s): I34.0 - Nonrheumatic mitral (valve) insufficiency (15) Pulmonary hypertension Code(s): I27.2 - OTHER SECONDARY PULMONARY HYPERTENSION * DO NOT USE * (16) S/P TAVR (transcatheter aortic valve replacement) Code(s): Z95.2 - PRESENCE OF PROSTHETIC HEART VALVE (17) Acute on chronic diastolic (congestive) heart failure Code(s): I50.33 - ACUTE ON CHRONIC DIASTOLIC (CONGESTIVE) HEART FAILURE (18) Palpitations Code(s): R00.2 - PALPITATIONS (19) Weakness Code(s): R53.1 - WEAKNESS Assessment/Plan 1. SEvere aortic valve disease () s/p TAVR 2. Mitral valve regurgitation (moderate to severe) 3. Hypertension 4. Hypercholesterolemia 5. COPD 6. Sleep apnea 7. Anemia 8. Diabetes mellitus 9. Palpitations 10. Pulmonary HTN PLAN: 1. Trend troponins 2. Review of previous medical record from office suggests that she is not an ideal surgical candidate for mitral valve surgery. She was not an ideal candidate for percuteous intervention with Mitraclip either, but this can be revisited with Dr. Rosita Escamilla at [facility]. 3. Patient was advised to continue with current cardiac therapy including Carvedilol and Losartan. Continue Atorvastatin 4. Continue Sprionolactone 5. Monitor CBC - no need to transfuse at this time 6. Telemetry monitoring Further plans are to follow. Will again review office records. Abiodun Cabral MD
--- NOTE | 2017-11-17 16:32 | EKG ---
Test Reason : Blood Pressure : / mmHG Vent. Rate : 063 BPM Atrial Rate : 063 BPM P-R Int : 200 ms QRS Dur : 106 ms QT Int : 420 ms P-R-T Axes : 074 -45 048 degrees QTc Int : 429 ms NORMAL SINUS RHYTHM INCOMPLETE RIGHT BUNDLE BRANCH BLOCK LEFT ANTERIOR FASCICULAR BLOCK VOLTAGE CRITERIA FOR LEFT VENTRICULAR HYPERTROPHY CANNOT RULE OUT SEPTAL INFARCT (CITED ON OR BEFORE 16-AUG-2017) ABNORMAL ECG WHEN COMPARED WITH ECG OF 24-OCT-2017 12:21, QUESTIONABLE CHANGE IN INITIAL FORCES OF SEPTAL LEADS Confirmed by KAM COBIAN MD ([id number]) on 11/17/2017 4:31:57 PM Referred By: Confirmed By:KAM COBIAN MD
[2017-11-18] MEDS: sitaGLIPtin PHOSPHATE 100 MG TABLET (FP) PO SCH (06:13)
[2017-11-18] MEDS: metFORMIN HCL 500 MG TABLET (FP) PO SCH (06:13)
[2017-11-18] MEDS: LEVOTHYROXINE NA 25 MCG TABLET (FP) PO SCH (06:14)
[2017-11-18 06:31] LABS: BASO % 0.6 % (0-2.0); EOS % 1.9 % (0-4.5); HEMATOCRIT 29.5 % (32.4-45.2); HEMOGLOBIN 10.2 GM/dL (10.7-15.3); LYMPH % 29.3 % (8-40); MCH 30.9 pg (25.7-33.7); MCHC 34.6 g/dl (32.0-36.0); MEAN CELL VOLUME 89.5 fl (80-96); MEAN PLT VOLUME 8.4 fl (7.5-11.1); MONO % 12.2 % (3.8-10.2); PLATELET COUNT 202 K/MM3 (134-434); RBC 3.29 M/mm3 (3.60-5.2); RDW 14.4 % (11.6-15.6); WHITE BLOOD COUNT 6.5 K/mm3 (4.0-10.0)
[2017-11-18] MEDS ORDERED: INSULIN (NOVOLOG) ASPART 100 UNITS/ML 10ML VIAL ONE (06:39)
[2017-11-18] MEDS ORDERED: INSULIN (LEVEMIR) 100 UNITS/ML UNITS SQ ONE (06:39)
[2017-11-18 07:03] LABS: ANION GAP 8 (8-16); BLOOD UREA NITROGEN 21 mg/dL (7-18); CALCIUM 8.7 mg/dL (8.5-10.1); CHLORIDE 103 mmol/L (98-107); CO2 28 mmol/L (21-32); CREATININE 0.9 mg/dL (0.55-1.02); GLUCOSE,RANDOM 102 mg/dL (74-106); MAGNESIUM 2.1 mg/dL (1.8-2.4); PHOSPHOROUS 3.7 mg/dL (2.5-4.9); POTASSIUM 4.5 mmol/L (3.5-5.1); SODIUM 139 mmol/L (136-145)
--- NOTE | 2017-11-18 08:13 | PN ---
Progress Note (short form) - Note Progress Note: Chief Complaint: Events noted, notes reviewed, denies any chest pain but reports persistent dyspnea with minimal physical activity and profound generalized weakness History of Present Illness: Seen and examined on telemetry. Events noted, notes reviewed, denies any chest pain but reports persistent dyspnea with minimal physical activity and profound generalized weakness Echocardiography performed 04/21/17 revealed mild degree of concentric left ventricular hypertrophy with normal left ventricular systolic function and estimated left ventricular ejection fraction between 65-70%, left atrial dilatation measuring 4.4 cm, normal right ventricular size and function, bio- prosthetic aortic valve with no evidence of aortic valve regurgitation and acceptable trans-valvular gradient with a mean trans-valvular gradient of 15 mmHg and a peak trans-valvular gradient of 29 mmHg, thickened mitral valve leaflets moderate to severe eccentrically/anteriorly directed mitral valve regurgitation (significant change in comparison to the prior study dated August 05, 2016), mild to moderate tricuspid valve regurgitation with calculated RVSP of 56 mmHg consistent with moderate degree of pulmonary hypertension (significant change in comparison to the prior study dated August 05, 2016). - Current Medication List Current Medications Acetaminophen (Tylenol -) 650 mg PO Q4H PRN PRN Reason: PAIN LEVEL 1-5 Last Admin: 11/17/17 21:37 Dose: 650 mg Ascorbic Acid (Vitamin C -) 500 mg PO DAILY [facility] Last Admin: 11/17/17 09:53 Dose: 500 mg Atorvastatin Calcium (Lipitor -) 10 mg PO HS [facility] Last Admin: 11/17/17 21:38 Dose: 10 mg Budesonide/Formoterol Fumarate (Symbicort 80/4.5mcg -) 2 puff IH BID [facility] Last Admin: 11/17/17 21:39 Dose: 2 puff Calcium/Vitamin D (Oscal 250 Mg+D -) 1 tab PO DAILY [facility] Last Admin: 11/17/17 09:53 Dose: 1 tab Carvedilol (Coreg -) 6.25 mg PO BID [facility] Last Admin: 11/17/17 21:39 Dose: 6.25 mg Cholecalciferol (Vitamin D3 -) 1,000 unit PO DAILY [facility] Last Admin: 11/17/17 09:54 Dose: 1,000 unit Ferrous Sulfate (Feosol -) 325 mg PO DAILY [facility] Last Admin: 11/17/17 09:52 Dose: 325 mg Latanoprost (Xalatan 0.005% Eye Drops -) 1 drop OU [facility] Last Admin: 11/17/17 21:40 Dose: 1 drp Levothyroxine Sodium (Synthroid -) 25 mcg PO DAILY@0700 [facility] Last Admin: 11/18/17 06:14 Dose: 25 mcg Losartan Potassium (Cozaar -) 50 mg PO DAILY [facility] Last Admin: 11/17/17 09:51 Dose: Not Given Metformin HCl (Glucophage -) 1,000 mg PO [facility] Last Admin: 11/18/17 06:13 Dose: 1,000 mg Nitroglycerin (Nitrostat -) 0.4 mg SL DAILY PRN PRN Reason: SHORTNESS OF BREATH [id number] Ethyl Esters (Lovaza -) 1 gm PO DAILY [facility] Last Admin: 11/17/17 09:53 Dose: 1 gm Sertraline HCl (Zoloft -) 25 mg PO [facility] Last Admin: 11/17/17 21:38 Dose: 25 mg Sitagliptin Phosphate (Januvia -) 100 mg PO [facility] Last Admin: 11/18/17 06:13 Dose: 100 mg Spironolactone (Aldactone -) 25 mg PO DAILY [facility] Last Admin: 11/17/17 09:51 Dose: Not Given Review of Systems - Review of Systems Constitutional: denies: Chills, Fever Cardiovascular: As noted above Respiratory: denies: Cough or Sputum Production Gastrointestinal: denies: Nausea, Vomiting, Diarrhea, Constipation or Abdominal Discomfort Neurological: No Symptoms Reported - Objective Vital Signs: Last Vital Signs Temp Pulse Resp BP Pulse Ox 98.1 F 70 18 106/54 97 11/18/17 05:53 11/18/17 05:53 11/18/17 07:00 11/18/17 05:53 11/18/17 07:00 Intake & Output 11/15/17 11/16/17 11/17/17 11/18/17 23:59 23:59 23:59 23:59 Intake Total 500 150 Balance 500 150 Weight 154 lb 150 lb 12.8 oz Constitutional: No Distress, Calm Neck: Supple Negative JVD Cardiovascular: S1 S2 Regular Rate and Rhythm Grade 3-4/6 SM apical Respiratory: Diminished at the Bases Bilaterally Gastrointestinal: Soft Benign Normal Bowel Sounds Ext: No Edema Labs: Troponin, BNP 11/17/17 07:21 Troponin I < 0.02 CBC, BMP 11/18/17 06:00 11/18/17 06:00 Hepatic Panel Total Bilirubin 0.5 mg/dL (0.2-1.0) D 11/16/17 11:15 AST 13 U/L (15-37) L 11/16/17 11:15 ALT 15 U/L (12-78) 11/16/17 11:15 Alkaline Phosphatase 48 U/L (45-117) 11/16/17 11:15 Albumin 3.6 g/dl (3.4-5.0) 11/16/17 11:15 Assessment/Plan ASSESSMENT: 1. Progressive exertional dyspnea, increasing fatigue and tiredness, clinical presentation is consistent with acute on chronic class I-II NYHA classification diastolic LV failure exacerbated By mitral valve pathology 2. Sub-acute mitral valve regurgitation severe in severity related to ruptured mitral chordae tendineae, not an appropriate candidate for transcutaneous intervention, evaluated at [facility] [place] [facility] [place] 3. Aortic valve disease critical aortic valve stenosis aortic valve area of 0.6 cm on echocardiography performed September 25, 2015 post transcutaneous aortic valve replacement TAVR August 03, 2016 (23 mm Qian 3 Trans-catheter Tissue Valve) 4. Coronary artery disease abnormal myocardial perfusion imaging study September negative pharmacologic Dipyridamole myocardial perfusion imaging study for myocardial ischemia April 26, 2005 non-obstructive coronary artery disease on coronary angiography July 26, 2016 angina pectoris endothelial dysfunction 5. Tricuspid valve regurgitation trace in severity with RVSP of 37 mmHg on echocardiography performed August 05, 2016 and mild to moderate tricuspid valve regurgitation with calculated RVSP of 56 mmHg on echocardiography performed April 21, 2017 consistent with mild to moderate degree of pulmonary hypertension 6. Hypertensive cardiovascular disease 7. [id number] diabetes mellitus 8. Hypercholesterolemia 9. History of retinal hemorrhages 10. Carotid stenosis mild in severity 11. Hypothyroidism 12. Chronic obstructive pulmonary disease 13. History gastro-esophageal reflux disease 14. History of gastro-intestinal bleed 15. History of diverticular disease 16. 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 History of degenerative joint disease PLAN: 1. Continue Aldactone +/- Lasix wi th close monitoring of renal function 2. Continue Coreg 3. Continue Cozaar 4. Continue Lipitor 5. Resume ASa unless it is absolutely contraindicated 6. Mitral valve operative intervention is to be reconsidered, cardio-thoracic surgey at [facility] [place] [facility] [place] to be contacted for purpose of review and possible intervention, above was discussed in detail with the patient Keiza Benz MD
[2017-11-18] MEDS ORDERED: PT OWN MED DRAWER 7, Y5N ONE (08:40)
--- NOTE | 2017-11-18 09:06 | PN ---
Progress Note, Physician Chief Complaint: Still c/o generalised weaknes, not in distress, participating in PT, no c/o chest pain, palpittaion History of Present Illness: 82 year old female who comes in with worsening weakness. She has been having progressive weakness for months now but it has steadily gotten worse over this past month. It has progressed to the point where she says she cannot even walk more than approximately 10 feet before becoming weak and needing to rest. She has presented to multiple ERs over the past month without finding major results aside from low electrolytes. - Current Medication List Current Medications: Active Medications Acetaminophen (Tylenol -) 650 mg PO Q4H PRN PRN Reason: PAIN LEVEL 1-5 Last Admin: 11/17/17 21:37 Dose: 650 mg Ascorbic Acid (Vitamin C -) 500 mg PO DAILY [facility] Last Admin: 11/17/17 09:53 Dose: 500 mg Atorvastatin Calcium (Lipitor -) 10 mg PO HS [facility] Last Admin: 11/17/17 21:38 Dose: 10 mg Budesonide/Formoterol Fumarate (Symbicort 80/4.5mcg -) 2 puff IH BID [facility] Last Admin: 11/17/17 21:39 Dose: 2 puff Calcium/Vitamin D (Oscal 250 Mg+D -) 1 tab PO DAILY [facility] Last Admin: 11/17/17 09:53 Dose: 1 tab Carvedilol (Coreg -) 6.25 mg PO BID [facility] Last Admin: 11/17/17 21:39 Dose: 6.25 mg Cholecalciferol (Vitamin D3 -) 1,000 unit PO DAILY [facility] Last Admin: 11/17/17 09:54 Dose: 1,000 unit Ferrous Sulfate (Feosol -) 325 mg PO DAILY [facility] Last Admin: 11/17/17 09:52 Dose: 325 mg Latanoprost (Xalatan 0.005% Eye Drops -) 1 drop OU HS [facility] Last Admin: 11/17/17 21:40 Dose: 1 drp Levothyroxine Sodium (Synthroid -) 25 mcg PO DAILY@0700 [facility] Last Admin: 11/18/17 06:14 Dose: 25 mcg Losartan Potassium (Cozaar -) 50 mg PO DAILY [facility] Last Admin: 11/17/17 09:51 Dose: Not Given Metformin HCl (Glucophage -) 1,000 mg PO ACBK [facility] Last Admin: 11/18/17 06:13 Dose: 1,000 mg Nitroglycerin (Nitrostat -) 0.4 mg SL DAILY PRN PRN Reason: SHORTNESS OF BREATH Fgbod-5-Givs Ethyl Esters (Lovaza -) 1 gm PO DAILY [facility] Last Admin: 11/17/17 09:53 Dose: 1 gm Sertraline HCl (Zoloft -) 25 mg PO HS [facility] Last Admin: 11/17/17 21:38 Dose: 25 mg Sitagliptin Phosphate (Januvia -) 100 mg PO ACBK [facility] Last Admin: 11/18/17 06:13 Dose: 100 mg Spironolactone (Aldactone -) 25 mg PO DAILY [facility] Last Admin: 11/17/17 09:51 Dose: Not Given - Objective Vital Signs: Vital Signs Temperature 98.1 F 11/18/17 05:53 Pulse Rate 70 11/18/17 05:53 Respiratory Rate 18 11/18/17 07:00 Blood Pressure 106/54 11/18/17 05:53 O2 Sat by Pulse Oximetry (%) 97 11/18/17 07:00 Elderly F comfortable, not in distress HEENT: Mm moist, mild anemia, PERRLA, EOMI NECK; JVd +, no Bruit, no thyromegaly CHEST: Minimal basal crepts CVS: S1S2 R SM in MA and AA ABD: No distention, non tender Bs + EXT; Trace edema feet [employer]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 Code(s): R53.83 - OTHER FATIGUE (2) COPD (chronic obstructive pulmonary disease) Assessment/Plan: Compensated cont current management. Code(s): J44.9 - CHRONIC OBSTRUCTIVE PULMONARY DISEASE, UNSPECIFIED Qualifiers: COPD type: unspecified COPD Qualified Code(s): J44.9 - Chronic obstructive pulmonary disease, unspecified (3) Diastolic CHF due to valvular disease Assessment/Plan: Compensated cont current management. Code(s): I38 - ENDOCARDITIS, VALVE UNSPECIFIED; I50.30 - UNSPECIFIED DIASTOLIC ( CONGESTIVE) HEART FAILURE (4) Aortic stenosis Assessment/Plan: S/P TAVR, Chronic cont current management Code(s): I35.0 - NONRHEUMATIC AORTIC (VALVE) STENOSIS Qualifiers: Cardiac valve disease etiology: nonrheumatic Qualified Code(s): I35.0 - Nonrheumatic aortic (valve) stenosis (5) CAD (coronary artery disease) Assessment/Plan: at present no chest painno acute St T xchnages Code(s): I25.10 - ATHSCL HEART DISEASE OF [place] CORONARY ARTERY W/O ANG PCTRS Qualifiers: Coronary Disease-Associated Artery/Lesion type: [place] artery [place] vs. transplanted heart: [place] heart Associated angina: without angina Qualified Code(s): I25.10 - Atherosclerotic heart disease of [place] coronary artery without angina pectoris (6) Mitral valve regurgitation Assessment/Plan: Moderate to sever, under evaluation for possible surgical intervention.C Code(s): I34.0 - NONRHEUMATIC MITRAL (VALVE) INSUFFICIENCY Qualifiers: Cardiac valve disease etiology: nonrheumatic Qualified Code(s): I34.0 - Nonrheumatic mitral (valve) insufficiency (7) Anemia Assessment/Plan: Chjronic H/H is stable Code(s): D64.9 - ANEMIA, UNSPECIFIED Qualifiers: Anemia type: iron deficiency Iron deficiency anemia type: chronic blood loss Qualified Code(s): D50.0 - Iron deficiency anemia secondary to blood loss (chronic) (8) HTN (hypertension) Assessment/Plan: Well controlled cont home meds Code(s): I10 - ESSENTIAL (PRIMARY) HYPERTENSION Qualifiers: Hypertension type: essential hypertension Qualified Code(s): I10 - Essential (primary) hypertension (9) T2DM (type 2 diabetes mellitus) Assessment/Plan: Cont Sitagliptin Code(s): E11.9 - TYPE 2 DIABETES MELLITUS WITHOUT COMPLICATIONS (10) Pulmonary hypertension Assessment/Plan: Due to Valvular hear disese. Code(s): I27.2 - OTHER SECONDARY PULMONARY HYPERTENSION * DO NOT USE *
[2017-11-18] MEDS: CHOLECALCIFEROL (VITAMIN D3) 1,000 UNIT TABLET (FP) PO SCH (09:10)
[2017-11-18] MEDS: OMEGA-3 ACID ETHYL ESTERS (FATTY-ACIDS) 1 GM CAPSULE (FP) PO SCH (09:10)
[2017-11-18] MEDS: FERROUS SO4 325 MG TABLET (FP) PO SCH (09:10)
[2017-11-18] MEDS: SPIRONOLACTONE 25 MG TABLET (FP) PO SCH (09:10)
[2017-11-18] MEDS: ASCORBIC ACID 500 MG TABLET (FP) PO SCH (09:10)
[2017-11-18] MEDS: CALCIUM 250MG/VIT-D 125 UNITS 1 COMBO TABLET PO SCH (09:10)
[2017-11-18] MEDS: LOSARTAN POTASSIUM 50 MG TABLET (FP) PO SCH (09:10)
[2017-11-18] MEDS: CARVEDILOL 6.25 MG TABLET (FP) PO SCH ×2 (09:10→21:05)
[2017-11-18] MEDS: BUDESONIDE/FORMETEROL FUMARATE 80/4.5 mcg INHALER IH SCH ×2 (09:10→21:03)
[2017-11-18 11:53] VITALS: BMI 27.4
[2017-11-18 20:19] VITALS: BP 105/54; PULSE 81; TEMP 98.2
[2017-11-18] MEDS: ATORVASTATIN CA 10 MG TABLET (FP) PO SCH (21:03)
[2017-11-18] MEDS: LATANOPROST 0.005% OPHTH SOLN 2.5ML BOTTLE OU SCH (21:03)
[2017-11-18] MEDS: SERTRALINE HCL 25 MG TABLET (FP) PO SCH (21:03)
[2017-11-18] MEDS: ACETAMINOPHEN 325 MG TABLET (FP) PO PRN (21:05)
--- NOTE | 2017-11-18 21:19 | HOSP ---
Subjective - Review of Symptoms Events since last encounter: Hospitalist Encounter Notified by the primary RN, that the patient of Dr. Crawford's is being transferred for MVR, to [facility] and that the paperwork needs to be filled out. Subjective: Arrived to bedside, patient is Alert, Awake and Oriented, denies palpitations, chest pain, reports SOB on minimal physical activity, denies at present. See PE Patient is stable for transfer. Physical Examination Vital Signs: Vital Signs Temperature 98.2 F 11/18/17 20:18 Pulse Rate 81 11/18/17 20:18 Respiratory Rate 18 11/18/17 20:18 Blood Pressure 105/54 11/18/17 20: O2 Sat by Pulse Oximetry (%) 94 L 11/18/17 10:00 Constitutional: Yes: Well Nourished, No Distress, Calm Eyes: Yes: WNL, Conjunctiva Clear, EOM Intact, PERRL HENT: Yes: WNL, Atraumatic, Normocephalic Neck: Yes: WNL, Supple, Trachea Midline Cardiovascular: Yes: Pulse Irregular, Murmur, S1, S2, Varicosities Respiratory: Yes: WNL, Regular, CTA Bilaterally Gastrointestinal: Yes: WNL, Normal Bowel Sounds, Soft ...Rectal Exam: Yes: Deferred Renal/: Yes: WNL Breast(s): Yes: WNL Musculoskeletal: Yes: WNL Extremities: Yes: WNL Edema: No Peripheral Pulses WNL: Yes Integumentary: Yes: WNL Neurological: Yes: WNL, Alert, Oriented, Cran Nerves II-XII Intact ...Motor Strength: WNL Psychiatric: Yes: WNL, Alert, Oriented Labs: CBC, BMP 11/18/17 06:00 11/18/17 06:00 Laboratory Results - last 24 hr 11/17/17 11/18/17 11/18/17 21:35 06:00 06:00 WBC 6.5 RBC 3.29 L Hgb 10.2 L Hct 29.5 L MCV 89.5 MCH 30.9 MCHC 34.6 RDW 14.4 Plt Count 202 D MPV 8.4 Neutrophils % 56.0 Lymphocytes % 29.3 Monocytes % 12.2 H Eosinophils % 1.9 Basophils % 0.6 Nucleated RBC % 0 Sodium 139 Potassium 4.5 Chloride 103 Carbon Dioxide 28 Anion Gap 8 BUN 21 H Creatinine 0.9 POC Glucometer 93 Random Glucose 102 Calcium 8.7 Phosphorus 3.7 Magnesium 2.1 11/18/17 11/18/17 11/18/17 06:11 11:26 17:08 WBC RBC Hgb Hct MCV MCH MCHC RDW Plt Count MPV Neutrophils % Lymphocytes % Monocytes % Eosinophils % Basophils % Nucleated RBC % Sodium Potassium Chloride Carbon Dioxide Anion Gap BUN Creatinine POC Glucometer 119 115 111 Random Glucose Calcium Phosphorus Magnesium Intake & Output 11/15/17 11/16/17 11/17/17 11/18/17 23:59 23:59 23:59 23:59 Intake Total 500 150 Balance 500 150 Weight 69.853 kg 68.402 kg 68.039 kg Current Medications Generic Name Dose Route Start Last Admin Trade Name Freq PRN Reason Stop Dose Admin Acetaminophen 650 mg 11/16/17 16:10 11/18/17 21:05 Tylenol - PO 650 mg Q4H PRN Administration PAIN LEVEL 1-5 Ascorbic Acid 500 mg 11/17/17 10:00 11/18/17 09:10 Vitamin C - PO 500 mg DAILY [facility] Administration Atorvastatin Calcium 10 mg 11/16/17 22:00 11/18/17 21:03 Lipitor - PO 10 mg HS [facility] Administration Budesonide/Formoterol Fumarate 2 puff 11/16/17 22:00 11/18/17 21:03 Symbicort 80/4.5mcg - IH 2 puff BID [facility] Administration Calcium/Vitamin D 1 tab 11/17/17 10:00 11/18/17 09:10 Oscal 250 Mg+D - PO 1 tab DAILY [facility] Administration Carvedilol 6.25 mg 11/17/17 09:22 11/18/17 21:05 Coreg - PO Not Given BID [facility] Cholecalciferol 1,000 unit 11/17/17 10:00 11/18/17 09:10 Vitamin D3 - PO 1,000 unit DAILY [facility] Administration Ferrous Sulfate 325 mg 11/17/17 10:00 11/18/17 09:10 Feosol - PO 325 mg DAILY [facility] Administration Latanoprost 1 drop 11/16/17 22:00 11/18/17 21:03 Xalatan 0.005% Eye Drops - OU 1 drp HS [facility] Administration Levothyroxine Sodium 25 mcg 11/17/17 07:00 11/18/17 06:14 Synthroid - PO 25 mcg DAILY@0700 [facility] Administration Losartan Potassium 50 mg 11/17/17 10:00 11/18/17 09:10 Cozaar - PO Not Given DAILY [facility] Metformin HCl 1,000 mg 11/17/17 07:00 11/18/17 06:13 Glucophage - PO 1,000 mg ACBK [facility] Administration Nitroglycerin 0.4 mg 11/16/17 16:15 Nitrostat - SL DAILY PRN SHORTNESS OF BREATH Cxrlz-7-Kxol Ethyl Esters 1 gm 11/17/17 10:00 11/18/17 09:10 Lovaza - PO 1 gm DAILY [facility] Administration Sertraline HCl 25 mg 11/16/17 22:00 11/18/17 21:03 Zoloft - PO 25 mg HS [facility] Administration Sitagliptin Phosphate 100 mg 11/17/17 07:00 11/18/17 06:13 Januvia - PO 100 mg ACBK [facility] Administration Spironolactone 25 mg 11/17/17 10:00 11/18/17 09:10 Aldactone - PO Not Given DAILY [facility] Last Vital Signs Temp Pulse Resp BP Pulse Ox 98.2 F 81 18 105/54 97 11/18/17 20:18 11/18/17 20:18 11/18/17 20:18 11/18/17 20:18 11/18/17 20:18 Hospitalist Encounter Assessment: 82 y/o woman PMHx HTN, HLD, CHF, Aortic Stenosis, s/p TAVR (2016), COPD, DM, Hypothyroidism, OA, HONEY. Admitted for Progressive SOB, Weakness.
== END 2017-11-18 22:22 | disposition short-term general hospital (02) ==
LOC: JER 10:09 → JERBED 14:22 → J4S 11-17 14:45
PROVIDERS: ADMIT Internal Medicine; ATTEND Internal Medicine
PROC: 3E0F7GC Introduction of Other Therapeutic Substance into Respiratory Tract, Via Natural or Artificial Opening (ICD-10-PCS; principal; 2017-11-16)
DX: R07.89 Other chest pain (principal); R00.2 Palpitations; R53.1 Weakness; R53.83 Other fatigue; I10 Essential (primary) hypertension; I25.10 Atherosclerotic heart disease of native coronary artery without angina pectoris; I50.33 Acute on chronic diastolic (congestive) heart failure; I38 Endocarditis, valve unspecified; I35.0 Nonrheumatic aortic (valve) stenosis; I34.0 Nonrheumatic mitral (valve) insufficiency; D50.0 Iron deficiency anemia secondary to blood loss (chronic); E11.9 Type 2 diabetes mellitus without complications; E78.5 Hyperlipidemia, unspecified; E03.9 Hypothyroidism, unspecified; J45.909 Unspecified asthma, uncomplicated; J43.9 Emphysema, unspecified; K21.9 Gastro-esophageal reflux disease without esophagitis; F32.9 Major depressive disorder, single episode, unspecified; K76.0 Fatty (change of) liver, not elsewhere classified; Z95.2 Presence of prosthetic heart valve; Z88.2 Allergy status to sulfonamides; Z88.1 Allergy status to other antibiotic agents; Z79.84 Long term (current) use of oral hypoglycemic drugs
CPT/HCPCS: 36415; 71045-TC-FY; 80048; 80053; 81003; 82550; 82962; 83735; 84100; 84443; 84484; 85025; 86850; 86900; 86901; 87086; 93005; 93010; 94640; 97116-GP; 97161-GP; 99285-25; G0378

== ENCOUNTER 2018-03-26 19:05 | Emergency (ER) | payer OTHER ==
[2018-03-26 19:13] VITALS: BMI 27.6
--- NOTE | 2018-03-26 19:15 | PDOC ---
Attending Attestation - HPI HPI: <Katy Romanosy - Last Filed: 03/26/18 20:59> - Resident Resident Name: Africa Smith - ED Attending Attestation I have performed the following: I have examined & evaluated the patient, The case was reviewed & discussed with the resident, I agree w/resident's findings & plan - HPI HPI: 03/26/18 20:38 Pt fell at home and struck her head, and lacerated her elbow. She has no complaints other than head pain. Pt had a likely mechanical fall. She leaned forward to pick something off the floor and fell forward onto her head. - Physicial Exam PE: 03/26/18 22:48 Agree with resident exam. Pt has left distal clavicular tenderness - Medical Decision Making 03/26/18 22:09 Pt has a tyle 1 distal clavicle fx vs a type 2b distal clavicle fx. We will place her left arm in a sling and we will discuss with ortho. Head CT and arm and forearm xrays are normal. Pt's labs are normal. Pt will be treated with analgesics and she will likely be discharged. 03/26/18 22:48 I spoke to pt's neighbor SILVIA [phone] 03/26/18 22:[address] hed report before we discharge the patient. Nom-stick bandage and bacitracin given to the patient. 03/26/18 23:25 Patient Name: KAI OROZCO THIS IS A PRELIMINARY REPORT FROM [employer] [employer]CHNIC[employer] DATE OF SERVICE: 2018-03-26 21:11:50 IMAGES: 142 EXAM: HEAD CT WITHOUT CONTRAST HISTORY: Status post fall COMPARISON: None. FINDINGS: The ventricular system is midline and nondilated. There is mild cortical atrophy and small vessel ischemic disease. There is no bleed, mass, extra-axial fluid collection or mass effect. Left parietal scalp hematoma is noted. No skull fracture. Note is made of hyperostosis frontalis internus. The visualized paranasal sinuses and mastoid air cells are clear. IMPRESSION: Scalp hematoma without skull fracture or intracranial hemorrhage. <Donna Peters - Last Filed: 03/26/18 23:52>
--- NOTE | 2018-03-26 19:17 | PDOC ---
History of Present Illness - General Chief Complaint: Injury Stated Complaint: FALL Time Seen by Provider: 03/26/18 19:12 - History of Present Illness Initial Comments: 82yo F with PMH of diastolic HF, DM, HTN, HLD, GERD presenting after a mechanical fall. No prior history of falls or arrhythmia. The fall was unwitnessed and she denies loss of consciousness or seizure. On ASA 81mg, but denies anticoagulants. Endorses pain at the areas of impact: left forehead, shoulder, arm, elbow, and anterior ribs. Reports that she was able to ambulate after the incident. Denies dental injury, neck pain, chest pain, or SOB. Past History - Past Medical History Allergies/Adverse Reactions: Allergies Allergy/AdvReac Type Severity Reaction Status Date / Time quinine [Quinine] Allergy Mild Rash Verified 08/16/17 11:32 Sulfa (Sulfonamide Allergy Mild Rash Verified 08/16/17 11:32 Antibiotics) [Sulfa(Sulfonamide Antibiotics)] Home Medications: Ambulatory Orders Losartan Potassium [Cozaar] 50 mg PO DAILY 12/18/14 Sitagliptin Phosphate [Januvia] 100 mg PO DAILY 12/18/14 Atorvastatin Ca [Lipitor] 10 mg PO HS #1 tablet 12/22/14 Cholecalciferol (Vitamin D3) [Vitamin D3 -] 1,000 unit PO DAILY 03/10/16 Fluticasone/Salmeterol [Advair 250-50 Diskus] 1 each IH BID 04/04/16 Latanoprost 0.005% Eye Drops [Xalatan 0.005% Eye Drops -] 1 drop OU HS 07/25/16 Ascorbic Acid [Vitamin C] 500 mg PO DAILY 05/10/17 Levothyroxine [Synthroid -] 0.025 mcg PO DAILY 05/10/17 Nitroglycerin 0.4 mg SL PRN 05/10/17 Sertraline HCl [Zoloft] 25 mg PO HS 05/10/17 Carvedilol [Coreg -] 6.25 mg PO BID #60 tablet 05/13/17 Spironolactone [Aldactone] 25 mg PO DAILY #30 tablet 05/13/17 Calcium 250Mg/Vit-D 125 Units [Oscal 250 mg+D -] 1 combo PO DAILY 10/24/17 Ferrous Sulfate 325 mg PO DAILY 10/24/17 Metformin HCl [Glucophage] 1,000 mg PO DAILY 10/24/17 [place]-3/Dha/Epa/Fish Oil [Fish Oil [place]-3 EC 1,200 mg] 1 each PO DAILY Cephalexin [Keflex] 250 mg PO QID #20 capsule 03/26/18 Anemia: Yes Asthma: Yes Cancer: No Cardiac Disorders: Yes (ashd) CVA: No COPD: Yes (emphysema) CHF: No Dementia: No Diabetes: (NIDDM) GI Disorders: Yes (Diverticulosis,gerd, POLYPS) Disorders: No HTN: No Hypercholesterolemia: Yes (takes lipitor) Liver Disease: (FATTY LIVER) Psychiatric Problems: Yes (derpression) Seizures: No Thyroid Disease: Yes - Surgical History Abdominal Surgery: Yes (appendectomy,hernia repair) Appendectomy: Yes Cardiac Surgery: Yes (aortic valve replacement) Cholecystectomy: No Lung Surgery: No Neurologic Surgery: No Orthopedic Surgery: No - Suicide/Smoking/Psychosocial Hx Smoking Status: Yes (1972) Smoking History: Former smoker Have you smoked in the past 12 months: No Number of Cigarettes Smoked Daily: 0 If you are a former smoker, when did you quit?: 1972 Information on smoking cessation initiated: No 'Breaking Loose' booklet given: 11/23/15 Hx Alcohol Use: No Drug/Substance Use Hx: No Substance Use Type: None Hx Substance Use Treatment: No Review of Systems - Review of Systems Comments:: Constitutional: no fever, no chills HEENT: no throat pain, no vision changes Cardiovascular: no chest pain, no palpitations Respiratory: no cough, no shortness of breath Gastrointestinal: no abdominal pain, no nausea, no vomiting Musculoskeletal: no myalgia, +L. shoulder pain Skin: no rash, no itching Neurologic: +headache, no dizziness *Physical Exam - Vital Signs Last Vital Signs Temp Pulse Resp BP Pulse Ox 85 18 136/80 94 L 03/26/18 19:11 03/26/18 19:11 03/26/18 19:11 03/26/18 19:11 - Physical Exam Comments: General: Awake, alert, and fully oriented; pleasant Head: 3cm hematoma and area of swelling on left forehead Eyes: EOMI, sclera anicteric ENT: Dry mucus membranes Neck: Normal ROM, supple Lungs: Lungs clear, Normal breath sounds Cardio: Regular rhythm, S1 and S2 present Abdomen: Soft, nontender, normal bowel sounds Extremities: Normal range of motion, Distal pulses present SKIN: Warm, Dry, normal turgor; 5cm superfical laceration on L.elbow, hemostatic Neurologic: Cranial nerves II through XII grossly intact. Normal speech, strength, sensation, gait, and coordination. ED Treatment Course - LABORATORY CBC & Chemistry Diagram: 03/26/18 20:29 03/26/18 20:29 Medical Decision Making - Medical Decision Making 82yo F with PMH of diastolic HF, DM, HTN, HLD, GERD presenting after a mechanical fall. -Head CT -Left shoulder, humerus, elbow, forearm, rib series X-ray -Labs -EKG -Tylenol -Tetanus -Keflex 03/26/18 20:21 No leukocytosis or anemia Distal clavicle fracture present on Xray, Type 1 vs 2 EKG, rate 81, QTc 471, no acute change from EKG on 11/16/17 Patient to be placed in sling Pending CT Head report 03/26/18 22:04 Paged ortho for recommendations 03/26/18 22:17 Discussed case with MONROE Deng who agreed with plan to place patient in a sling 03/26/18 22:20 Patient in sling and elbow wound dressed. Awaiting CT Head report. Patient instructed to follow-up with her orthopedist, Dr. Rodriguez, this week. 03/26/18 22:46 CT head negative. Will discharge. Patient amenable to plan. 03/26/18 23:24 *DC/Admit/Observation/Transfer Diagnosis at time of Disposition: Clavicle fracture Qualifiers: Encounter type: initial encounter Clavicle location: lateral end Fracture type : closed Fracture alignment: displaced Laterality: left Qualified Code(s): S42.032A - Displaced fracture of lateral end of left clavicle, initial encounter for closed fracture - Discharge Dispostion Disposition: HOME - Prescriptions Prescriptions: Cephalexin [Keflex] 250 mg PO QID #20 capsule - Referrals Referrals: Jorje Tom MD [Primary Care Provider] - Ahmet Rodriguez MD [Staff Physician] - - Patient Instructions Printed Discharge Instructions: DI for Clavicle Fracture-Adult, How to Prevent Falls Additional Instructions: You came to the ED after a fall. Imaging showed that you have a left clavicle fracture and your arm was placed in a sling. Antibiotic prescription sent to your pharmacy. Follow up with your orthopedic physician, Dr. Rodriguez, this week. Contact your doctor if your recovery is not progressing as expected or you develop complications such as: -increasing pain, tenderness, and swelling of the affected area -numbness or tingling of the arm or hand -signs of infection, including fever and chills -nausea and vomiting -lightheadedness If you think you have an emergency, call for emergency medical services right away. - Post Discharge Activity
[2018-03-26] MEDS ORDERED: ACETAMINOPHEN 500 MG TABLET (FP) PO ONE (19:56)
[2018-03-26] MEDS ORDERED: CEPHALEXIN MONOHYDRATE 250 MG CAPSULE (FP) PO ONE (20:11)
[2018-03-26] MEDS ORDERED: DIPHTH,PERTUSS(ACELL),TET 0.5 ML DISP.SYRIN IM ONE (20:11)
[2018-03-26 20:36] LABS: BASO % 0.7 % (0-2.0); EOS % 1.6 % (0-4.5); HEMATOCRIT 32.8 % (32.4-45.2); LYMPH % 15.1 % (8-40); MCHC 33.5 g/dl (32.0-36.0); MEAN CELL VOLUME 86.4 fl (80-96); MEAN PLT VOLUME 7.9 fl (7.5-11.1); MONO % 9.6 % (3.8-10.2); PLATELET COUNT 228 K/MM3 (134-434); RDW 14.8 % (11.6-15.6); WHITE BLOOD COUNT 8.7 K/mm3 (4.0-10.0)
[2018-03-26 21:00] LABS: ALBUMIN 3.2 g/dl (3.4-5.0); ALK PHOS 65 U/L (45-117); ANION GAP 11 MMOL/L (8-16); BILIRUBIN,TOTAL 0.3 mg/dL (0.2-1); BLOOD UREA NITROGEN 21 mg/dL (7-18); CALCIUM 9.7 mg/dL (8.5-10.1); CHLORIDE 102 mmol/L (98-107); CO2 29 mmol/L (21-32); CREATININE 0.7 mg/dL (0.55-1.3); GLUCOSE,RANDOM 126 mg/dL (74-106); POTASSIUM 4.3 mmol/L (3.5-5.1); SGOT/AST 15 U/L (15-37); SGPT/ALT 16 U/L (13-61); SODIUM 142 mmol/L (136-145); TOT PROT 6.8 g/dl (6.4-8.2)
[2018-03-26] MEDS ORDERED: ACETAMINOPHEN 325 MG TABLET (FP) ONE (22:00)
[2018-03-26] MEDS ORDERED: CEPHALEXIN MONOHYDRATE 250 MG CAPSULE (FP) ONE (22:00)
[2018-03-26] MEDS ORDERED: BACITRACIN 0.9 GM PACKET ONE (22:24)
[2018-03-26] MEDS ORDERED: BACITRACIN 15 GM TUBE TOPICAL OINTMENT TP ONE (22:50)
[2018-03-26 23:33] VITALS: BP 130/78; PULSE 80; TEMP 98.1
--- NOTE | 2018-03-28 10:47 | EKG ---
Test Reason : Blood Pressure : / mmHG Vent. Rate : 081 BPM Atrial Rate : 081 BPM P-R Int : 192 ms QRS Dur : 102 ms QT Int : 406 ms P-R-T Axes : 072 -46 063 degrees QTc Int : 471 ms NORMAL SINUS RHYTHM WITH SINUS ARRHYTHMIA LEFT ANTERIOR FASCICULAR BLOCK VOLTAGE CRITERIA FOR LEFT VENTRICULAR HYPERTROPHY NONSPECIFIC ST AND T WAVE ABNORMALITY ABNORMAL ECG Confirmed by Thor Siddiqui MD ([id number]) on 03/28/2018 10:46:37 AM Referred By: Confirmed By:Thor Siddiqui MD
== END 2018-03-26 23:54 | disposition home or self-care (01) ==
LOC: JER 19:05
PROC: 3E0234Z Introduction of Serum, Toxoid and Vaccine into Muscle, Percutaneous Approach (ICD-10-PCS; principal; 2018-03-26)
DX: S42.032A Displaced fracture of lateral end of left clavicle, initial encounter for closed fracture (principal); S00.03XA Contusion of scalp, initial encounter; S51.012A Laceration without foreign body of left elbow, initial encounter; W01.198A Fall on same level from slipping, tripping and stumbling with subsequent striking against other object, initial encounter; Y93.89 Activity, other specified; Y92.030 Kitchen in apartment as the place of occurrence of the external cause; Y99.8 Other external cause status; I25.10 Atherosclerotic heart disease of native coronary artery without angina pectoris; I11.0 Hypertensive heart disease with heart failure; E78.5 Hyperlipidemia, unspecified; E11.9 Type 2 diabetes mellitus without complications; Z79.84 Long term (current) use of oral hypoglycemic drugs; K21.9 Gastro-esophageal reflux disease without esophagitis; Z87.19 Personal history of other diseases of the digestive system; J43.9 Emphysema, unspecified; Z95.2 Presence of prosthetic heart valve; Z79.82 Long term (current) use of aspirin
CPT/HCPCS: 36415; 70450-TC; 71101-TC-FY; 73030-TC-LT-FY; 73060-TC-LT-FY; 73070-TC-LT-FY; 73090-TC-LT-FY; 80053; 85025; 90471; 90715; 93005; 93010; 99282-25

== ENCOUNTER 2018-04-02 14:50 | Inpatient (IN) | payer OTHER ==
--- NOTE | 2018-04-02 14:53 | PDOC ---
History of Present Illness - General Chief Complaint: Weakness Stated Complaint: WEAKNESS Time Seen by Provider: 04/02/18 14:53 Past History - Past Medical History Allergies/Adverse Reactions: Allergies Allergy/AdvReac Type Severity Reaction Status Date / Time quinine [Quinine] Allergy Mild Rash Verified 08/16/17 11:32 Sulfa (Sulfonamide Allergy Mild Rash Verified 08/16/17 11:32 Antibiotics) [Sulfa(Sulfonamide Antibiotics)] Home Medications: Ambulatory Orders Losartan Potassium [Cozaar] 50 mg PO DAILY 12/18/14 Sitagliptin Phosphate [Januvia] 100 mg PO DAILY 12/18/14 Atorvastatin Ca [Lipitor] 10 mg PO HS #1 tablet 12/22/14 Cholecalciferol (Vitamin D3) [Vitamin D3 -] 1,000 unit PO DAILY 03/10/16 Fluticasone/Salmeterol [Advair 250-50 Diskus] 1 each IH BID 04/04/16 Latanoprost 0.005% Eye Drops [Xalatan 0.005% Eye Drops -] 1 drop OU HS 07/25/16 Ascorbic Acid [Vitamin C] 500 mg PO DAILY 05/10/17 Levothyroxine [Synthroid -] 0.025 mcg PO DAILY 05/10/17 Nitroglycerin 0.4 mg SL PRN 05/10/17 Sertraline HCl [Zoloft] 25 mg PO HS 05/10/17 Carvedilol [Coreg -] 6.25 mg PO BID #60 tablet 05/13/17 Spironolactone [Aldactone] 25 mg PO DAILY #30 tablet 05/13/17 Calcium 250Mg/Vit-D 125 Units [Oscal 250 mg+D -] 1 combo PO DAILY 10/24/17 Ferrous Sulfate 325 mg PO DAILY 10/24/17 Metformin HCl [Glucophage] 1,000 mg PO DAILY 10/24/17 [place]-3/Dha/Epa/Fish Oil [Fish Oil [place]-3 EC 1,200 mg] 1 each PO DAILY Cephalexin [Keflex] 250 mg PO QID #20 capsule 03/26/18 Anemia: Yes Asthma: Yes Cancer: No Cardiac Disorders: Yes (ashd) CVA: No COPD: Yes (emphysema) CHF: No Dementia: No Diabetes: (NIDDM) GI Disorders: Yes (Diverticulosis,gerd, POLYPS) Disorders: No HTN: No Hypercholesterolemia: Yes (takes lipitor) Liver Disease: (FATTY LIVER) Psychiatric Problems: Yes (derpression) Seizures: No Thyroid Disease: Yes - Surgical History Abdominal Surgery: Yes (appendectomy,hernia repair) Appendectomy: Yes Cardiac Surgery: Yes (aortic valve replacement) Cholecystectomy: No Lung Surgery: No Neurologic Surgery: No Orthopedic Surgery: No - Suicide/Smoking/Psychosocial Hx Smoking Status: Yes (1972) Smoking History: Former smoker Have you smoked in the past 12 months: No Number of Cigarettes Smoked Daily: 0 If you are a former smoker, when did you quit?: 1972 'Breaking Loose' booklet given: 11/23/15 Hx Alcohol Use: No Drug/Substance Use Hx: No Substance Use Type: None Hx Substance Use Treatment: No
--- NOTE | 2018-04-02 15:29 | PDOC ---
History of Present Illness - General Chief Complaint: Weakness Stated Complaint: WEAKNESS Time Seen by Provider: 04/02/18 14:53 History Source: Patient, Friend, Old Records Exam Limitations: No Limitations - History of Present Illness Initial Comments: 82 y/o female presenting to [facility] ER via ambulance from home complaining of worsening generalized weakness for the past week. Additionally endorses left foot weakness starting last night. Denies previous extremity weaknesses. The pt was evaluated and discharged from this facility last week following a traumatic fall resulting in a left clavicle fracture. Pt was unable to follow up with orthopedics as outpatient because she was tired. She lives at home alone and has required the assistance of her neighbor to perform her ADLs. Has been able to take all her medications, including the Keflex prophylaxis prescribed last week, except her Synthroid during this period. Endorses good PO intake. Denies systemic symptoms including fevers, chills, SOB, or chest pain. PCP: Jorje Tom Cardiology: Dr. Kezia Benz Medical Hx: - Mitral valve regurgitation - Hypothyroid - S/P TAVR (transcatheter aortic valve replacement) - Pulmonary HTN - HONEY - DM - HTN - HLD - GERD Surgical Hx: - TAVR Past History - Past Medical History Allergies/Adverse Reactions: Allergies Allergy/AdvReac Type Severity Reaction Status Date / Time quinine [Quinine] Allergy Mild Rash Verified 04/02/18 15:11 Sulfa (Sulfonamide Allergy Mild Rash Verified 04/02/18 15:11 Antibiotics) [Sulfa(Sulfonamide Antibiotics)] Home Medications: Ambulatory Orders Losartan Potassium [Cozaar] 50 mg PO DAILY 12/18/14 Sitagliptin Phosphate [Januvia] 100 mg PO DAILY 12/18/14 Atorvastatin Ca [Lipitor] 10 mg PO HS #1 tablet 12/22/14 Cholecalciferol (Vitamin D3) [Vitamin D3 -] 1,000 unit PO DAILY 03/10/16 Fluticasone/Salmeterol [Advair 250-50 Diskus] 1 each IH BID 04/04/16 Latanoprost 0.005% Eye Drops [Xalatan 0.005% Eye Drops -] 1 drop OU HS 07/25/16 Ascorbic Acid [Vitamin C] 500 mg PO DAILY 05/10/17 Levothyroxine [Synthroid -] 0.025 mcg PO DAILY 05/10/17 Nitroglycerin 0.4 mg SL PRN 05/10/17 Sertraline HCl [Zoloft] 25 mg PO HS 05/10/17 Carvedilol [Coreg -] 6.25 mg PO BID #60 tablet 05/13/17 Spironolactone [Aldactone] 25 mg PO DAILY #30 tablet 05/13/17 Calcium 250Mg/Vit-D 125 Units [Oscal 250 mg+D -] 1 combo PO DAILY 10/24/17 Ferrous Sulfate 325 mg PO DAILY 10/24/17 Metformin HCl [Glucophage] 1,000 mg PO DAILY 10/24/17 [place]-3/Dha/Epa/Fish Oil [Fish Oil [place]-3 EC 1,200 mg] 1 each PO DAILY Cephalexin [Keflex] 250 mg PO QID #20 capsule 03/26/18 Anemia: Yes Asthma: Yes Cancer: No Cardiac Disorders: Yes (ashd) CVA: No COPD: Yes (emphysema) CHF: No Dementia: No Diabetes: (NIDDM) GI Disorders: Yes (Diverticulosis,gerd, POLYPS) Disorders: No HTN: No Hypercholesterolemia: Yes (takes lipitor) Liver Disease: (FATTY LIVER) Psychiatric Problems: Yes (derpression) Seizures: No Thyroid Disease: Yes - Surgical History Abdominal Surgery: Yes (appendectomy,hernia repair) Appendectomy: Yes Cardiac Surgery: Yes (aortic valve replacement) Cholecystectomy: No Lung Surgery: No Neurologic Surgery: No Orthopedic Surgery: No - Suicide/Smoking/Psychosocial Hx Smoking Status: Yes (1972) Smoking History: Former smoker Have you smoked in the past 12 months: No Number of Cigarettes Smoked Daily: 0 If you are a former smoker, when did you quit?: 1972 Information on smoking cessation initiated: No 'Breaking Loose' booklet given: 11/23/15 Hx Alcohol Use: No Drug/Substance Use Hx: No Substance Use Type: None Hx Substance Use Treatment: No Review of Systems - Review of Systems Able to Perform ROS?: Yes Comments:: In addition to that documented in the HPI above, the additional ROS was obtained : Constitutional: Denies fevers or chills Eyes: Denies vision changes ENMT: Denies sore throat CV: Denies chest pain Resp: Denies SOB GI: Denies vomiting or diarrhea : Denies painful urination MSK: Per HPI Skin: Denies new rashes Neuro: Endorses left foot weakness Endocrine: Denies polyuria Heme: Denies bleeding disorders *Physical Exam - Vital Signs Last Vital Signs Temp Pulse Resp BP Pulse Ox 98 F 74 16 144/90 100 04/02/18 14:50 04/02/18 14:50 04/02/18 14:50 04/02/18 14:50 04/02/18 14:50 - Physical Exam Comments: Constitutional: Well-developed, well-nourished female in no acute distress or obvious discomfort. Found jackie-fowlers in hospital bed. Alert and oriented x4. Answered all questions appropriately and completely. Speech was non-labored, non -pressured. Head: Normocephalic. Ecchymosis yellow appearing to lateral aspect of left orbit. No Battles Sign or periorbital ecchymosis. Eyes: Pupils 2mm and PERRL bilaterally. EOMI. Sclerae white. Conjunctiva moist and not injected. EARS: Hearing grossly intact. NOSE: No nasal discharge. THROAT: Oral cavity and pharynx normal. No inflammation, swelling, exudate, or lesions. Moist mucosal membranes. Neck: Supple, trachea is midline. Cardiovascular: Regular rate and regular rhythm. 4/5 Systolic murmur, loudest with expiration. No rubs, clicks, or gallops. Peripheral pulses: Radial pulses full. Respiratory: Breathing unlabored. Equal chest rise and fall. Clear to auscultation bilaterally. No stridor, no wheezing, no rhonchi. Gastrointestinal: abdomen is soft, non-tender, non-distended. No overlying skin lesions or obvious signs of trauma. Neuro: Alert and oriented. Moving all four extremities spontaneously. Intact sensation to all four extremities. Upper and lower extremities: proximal and distal strength 5/5. Fixer Supervisor strength 5/5 - equal and symmetric. Plantar flexion and dorsiflexion 5/5 on right but 4/5 on left. MSK / Skin: Warm, dry, and intact. Ecchymosis yellow appearing on left clavicle and left breast. Tender along left clavicle. Psych: Affect: appropriate. Mood: normal. ED Treatment Course - LABORATORY CBC & Chemistry Diagram: 04/02/18 16:03 04/02/18 16:03 Medical Decision Making - Medical Decision Making *Reviewed vital signs, nursing notes, and prior visit documentation (if available). 82 y/o female complaining of progressive weakness s/p traumatic fall. Afebrile. Vitals unremarkable for hypotension or tachycardia. D/D: Subdural hematoma, peripheral nerve compression, ACS, arrhythmia, electrolyte derangement, hypothyroid symptoms 2/2 poor medication compliance, cystitis, dehydration. Ordered: CBC, CMP, Mag, Phos, TSH, Free T4, Troponin, EKG, UA, urine culture, CXR, and CT of head, neck, and lumbar spine. Ordered NS IVFB. CBC unremarkable for anemia or leukocytosis. CMP unremarkable for electrolyte derangement. LFTs not elevated. Initial troponin not elevated. Low suspicion for ACS. Do not feel like additional troponin is indicated as pt is without chest pain or acute EKG changes. TSH and Free T4 within normal limits. Low suspicion for hyper or hypothyroid etiology. UA unremarkable for pyuria, leukocyte esterase, or nitrites. Low suspicion for UTI. Culture pending. 04/02/18 19:28 Pt signed out to Dr. Allison after she was verbally appraised of the pt's HPI and current condition. Will follow up on pending CT scans. Plan likely to admit. *DC/Admit/Observation/Transfer Diagnosis at time of Disposition: Weakness - Discharge Dispostion Condition at time of disposition: Stable - Referrals Referrals: Jorje Tom MD [Primary Care Provider] - - Patient Instructions - Post Discharge Activity
--- NOTE | 2018-04-02 15:33 | PDOC ---
Attending Attestation - [facility] HPI: 04/02/18 15:59 The patient is a 82 year old female with a significant past medical history of diastolic HF (s/p TAVR), diabetes, HTN, and hyperlipidemia who presents to the ER with increased weakness since a fall she had a week ago. Patient states she was seen in this ER and told she had a clavicle fracture. Patient has also noticed a left foot drop since the fall. Patient notes the facial bruising from the fall has been improving. Patient reports she has not been taking her synthroid medication for the past week due to difficulty ambulating. The patient denies chest pain, shortness of breath, headache, and dizziness. Denies fever, chills, nausea, vomit, diarrhea, and constipation. Denies dysuria, frequency, urgency, and hematuria. Allergies: NKA Past surgical history: None reported. Social history: No reported alcohol, drug, or cigarette use. PCP: Dr. Sifuentes - Physicial Exam PE: 04/02/18 16:09 ADULT PHYSICAL EXAM Constitutional: Awake, alert, oriented. No acute distress. Head: Normocephalic. Atraumatic Eyes: PERRL. EOMI. Conjunctivae are not pale. (+) Healing ecchymosis to the left eye. ENT: Mucous membranes are moist and intact. Posterior pharynx without exudates or erythema. Uvula midline. Neck: Supple. Full ROM. No lymphadenopathy. Cardiovascular: Regular rate. Regular rhythm. S1, S2 regular. Distal pulses are 2+ and symmetric. Pulmonary/Chest: No evidence of respiratory distress. Clear to auscultation bilaterally No wheezing, rales or rhonchi. Abdominal: Soft and non-distended. There is no tenderness. No rebound, guarding or rigidity. No organomegaly. No palpable masses. Good bowel sounds. ( +) Left posterior rib tenderness. (+) Healing ecchymosis across the chest wall, yellow and purple in color. (+) Left mid clavicle tenderness. Back: No CVA tenderness. No flank tenderness. No C or L spine tenderness. Musculoskeletal: No edema. No cyanosis. No clubbing. No calf tenderness. Radial/pedal pulses are intact and 2+ bilaterally. (+) Sensation intact distally but left foot drop. (+) Left buttock tenderness. Skin: Skin is warm and dry. No petechiae. No purpura. Neurological: Alert and oriented to person, place, and time. Cranial nerves II -XII are grossly intact. Normal speech. Strength is grossly symmetric. No sensory deficits. Psychiatric: Good eye contact. Normal interaction, affect and behavior. <Tiffanie Romano - Last Filed: 04/02/18 16:24> - Resident Resident Name: Jorje Marie - ED Attending Attestation I have performed the following: I have examined & evaluated the patient, The case was reviewed & discussed with the resident, I agree w/resident's findings & plan, Exceptions are as noted - Medical Decision Making 04/02/18 15:32 I, Dr. Alondra Castellon, DO, attest that this document has been prepared under my direction and personally reviewed by me in its entirety. I further attest, that it accurately reflects all work, treatment, procedures and medical decision -making performed by me. 04/02/18 16:17 a/p: 82yo female with L clavicle fx s/p a fall a week ago -pt now generally weak, unable to take care of herself, her neighbor has been coming over daily to help with meds and food -pt now with new foot drop -on asa -concern for slow intracranial bleeding vs subdural -will also obtain imaging of L spine -will send labs -stopped taking synthroid -will send labs, ekg, cxr, head ct/c spine ct, L spine ct -ua will most likely need obs for rehab <Alondra Castellon - Last Filed: 04/03/18 09:20> Heart Score/ECG Review - ECG Intrepretation Comment:: 04/02/18 17:24 sinus at 75, 1st degree av block, poor r wave progression, lvh, no acute st/t wave findings <Alondra Castellon - Last Filed: 04/03/18 09:20> NIH Stroke Scale - Last Known Well Date/Time & Onset Date Last Known Well: 03/24/18 Time Last Known Well: 07:00 - Initial Evaluation Level of consciousness: Alert Ask patient the month and their age: Answers both correctly Ask patient to open & close eyes; make fist and let go: Obeys both correctly Best gaze (horizontal eye movement): Normal Visual field testing: No visual field loss Facial paresis (Show teeth/raise eyebrows/close eyes tight): Normal symmetrical movement Motor Function: Left Arm: Normal Motor Function: Right Arm: Normal (extends arm 90 (or 45) degrees for 10 seconds without drift Motor Function: Left Leg: Normal (extends leg 30 degrees for 5 seconds without drift) (L foot drop - proximal muscles are strong, but unable to dorsiflex her foot) Motor Function: Right Leg: Normal (extends leg 30 degrees for 5 seconds without drift) Limb Ataxia: No ataxia Sensory(Use pinprick test arms,legs,trunk,face/side to side): Normal Best language (Describe picture, name items, read sentences): No Aphasia Dysarthria (read several words): Normal articulation Extinction and Inattention: No abnormality - Total Score NIH Stroke Scale Score: 0 <Alondra Castellon - Last Filed: 04/03/18 09:20>
[2018-04-02] MEDS ORDERED: SODIUM CHLORIDE 0.9% 500 ML INFUS.BAG IV ONE (15:42)
[2018-04-02 16:28] LABS: BASO % 1.1 % (0-2.0); EOS % 1.7 % (0-4.5); HEMATOCRIT 31.9 % (32.4-45.2); HEMOGLOBIN 10.7 GM/dL (10.7-15.3); LYMPH % 25.5 % (8-40); MCH 28.8 pg (25.7-33.7); MCHC 33.4 g/dl (32.0-36.0); MEAN CELL VOLUME 86.3 fl (80-96); MEAN PLT VOLUME 8.3 fl (7.5-11.1); MONO % 10.6 % (3.8-10.2); NEUT % 61.1 % (42.8-82.8); PLATELET COUNT 295 K/MM3 (134-434); RDW 14.9 % (11.6-15.6); WHITE BLOOD COUNT 7.1 K/mm3 (4.0-10.0)
[2018-04-02 16:59] LABS: ALBUMIN 3.2 g/dl (3.4-5.0); ALK PHOS 79 U/L (45-117); ANION GAP 7 MMOL/L (8-16); BILIRUBIN,TOTAL 0.3 mg/dL (0.2-1); BLOOD UREA NITROGEN 21 mg/dL (7-18); CHLORIDE 100 mmol/L (98-107); CO2 28 mmol/L (21-32); CREATININE 0.6 mg/dL (0.55-1.3); GLUCOSE,RANDOM 87 mg/dL (74-106); MAGNESIUM 2.2 mg/dL (1.8-2.4); PHOSPHOROUS 4.1 mg/dL (2.5-4.9); SGOT/AST 20 U/L (15-37); SGPT/ALT 18 U/L (13-61); SODIUM 136 mmol/L (136-145); TOT PROT 6.8 g/dl (6.4-8.2)
[2018-04-02 17:41] LABS: URINE APPEARANCE CLEAR; URINE BILIRUBIN NEGATIVE (<2.0 mg/dL); URINE COLOR LTYELLOW; URINE GLUCOSE (UA) NEGATIVE (NEGATIVE); URINE KETONE NEGATIVE (NEGATIVE); URINE LEUK ESTERASE NEGATIVE (NEGATIVE); URINE NITRITE NEGATIVE (NEGATIVE); URINE PROTEIN NEGATIVE (NEGATIVE); URINE UROBILINOGEN NEGATIVE mg/dL (0.2-1.0)
--- NOTE | 2018-04-02 19:28 | PDOC ---
*Physical Exam - Vital Signs Last Vital Signs Temp Pulse Resp BP Pulse Ox 98.3 F 68 16 138/74 99 04/02/18 17:55 04/02/18 17:55 04/02/18 17:55 04/02/18 17:55 04/02/18 17:55 04/02/18 19:15 Patient's care was endorsed to me by Dr. Marie at the end of his shift. This is a 82 YOF c/o generalized weakness x1 week requiring new ADL assistance from her neighbor. The patient fell and fractured her clavicle 7 days ago and was seen here. She was able to be discharged but has not yet followed up with orthopedics as directed. She presents additionally with periorbital ecchymosis, and new onset foot drop since last night. Labs not concerning thus far, pending head and neck and lumbar CT, needs admission given new foot drop and new baseline ADL difficulties. ED Treatment Course - LABORATORY CBC & Chemistry Diagram: 04/02/18 16:03 04/02/18 16:03 - ADDITIONAL ORDERS Additional order review: Laboratory Results 04/02/18 04/02/18 04/02/18 17:15 16:03 16:03 Sodium 136 Potassium 5.0 Chloride 100 Carbon Dioxide 28 Anion Gap 7 L BUN 21 H Creatinine 0.6 Creat Clearance w eGFR > 60 Random Glucose 87 Calcium 9.0 Phosphorus 4.1 Magnesium 2.2 Total Bilirubin 0.3 AST 20 ALT 18 Alkaline Phosphatase 79 Troponin I < 0.02 Total Protein 6.8 Albumin 3.2 L TSH 3.23 Free T4 0.99 Urine Color Ltyellow Urine Appearance Clear Urine pH 7.0 D Ur Specific [place] 1.012 Urine Protein Negative Urine Glucose (UA) Negative Urine Ketones Negative Urine Blood Negative Urine Nitrite Negative Urine Bilirubin Negative Urine Urobilinogen Negative Ur Leukocyte Esterase Negative 04/02/18 16:03 RBC 3.70 MCV 86.3 MCHC 33.4 RDW 14.9 MPV 8.3 Neutrophils % 61.1 Lymphocytes % 25.5 D Monocytes % 10.6 H Eosinophils % 1.7 Basophils % 1.1 - Medications Given in the ED: ED Medications Discontinued Medications Generic Name Dose Route Start Last Admin Trade Name Freq PRN Reason Stop Dose Admin Sodium Chloride 500 ml 04/02/18 15:42 04/02/18 16:11 Normal Saline - IV 04/02/18 15:43 500 ml ONCE ONE Administration Medical Decision Making - Medical Decision Making Vital Signs Temperature 98.6 F 04/02/18 19:46 Pulse Rate 83 04/02/18 19:46 Respiratory Rate 16 04/02/18 19:46 Blood Pressure 132/68 04/02/18 19:46 O2 Sat by Pulse Oximetry (%) 94 L 04/02/18 19:46 04/02/18 20:58 Patient continues pending D-dimer, Duplex, CT final reads. To be admitted, PCP Anne, goes to Dr. Crawford, after [address] Brower. 04/02/18 21:01 The Pt is unsafe for discharge at this time. They require further hospital observation, workup, and treatment. Page sent to Dr. Brower for admission. Blank Decision to Admit order is placed per ED protocol. 04/02/18 21:[address] Brower; in agreement on plan for IP Med/Surg admission. Decision to Admit order corrected with Dr. Crawford's name at Dr. Brower's request. 04/02/18 21:14 CTH without acute intracranial abnormality. CT C-Spine without acute fracture or subluxation. 04/02/18 21:40 CT L-Spine with chronic advanced intravertebral osteochondrosis, but nothing acute. *DC/Admit/Observation/Transfer Diagnosis at time of Disposition: Foot drop, left, Generalized weakness Failure to thrive Qualifiers: Failure to thrive age range: in adult Qualified Code(s): R62.7 - Adult failure to thrive - Discharge Dispostion Condition at time of disposition: Guarded Decision to Admit order: Yes - Referrals Referrals: Jorje Tom MD [Primary Care Provider] - - Patient Instructions - Post Discharge Activity NIH Stroke Scale - Last Known Well Date/Time & Onset Date Last Known Well: 03/29/18 Time Last Known Well: 20:00 - Initial Evaluation Level of consciousness: Alert Ask patient the month and their age: Answers both correctly Ask patient to open & close eyes; make fist and let go: Obeys both correctly Best gaze (horizontal eye movement): Normal Visual field testing: No visual field loss Facial paresis (Show teeth/raise eyebrows/close eyes tight): Normal symmetrical movement Motor Function: Left Arm: Normal Motor Function: Right Arm: Normal (extends arm 90 (or 45) degrees for 10 seconds without drift Motor Function: Left Leg: Normal (extends leg 30 degrees for 5 seconds without drift) Motor Function: Right Leg: Normal (extends leg 30 degrees for 5 seconds without drift) Limb Ataxia: No ataxia Sensory(Use pinprick test arms,legs,trunk,face/side to side): Normal Best language (Describe picture, name items, read sentences): No Aphasia Dysarthria (read several words): Normal articulation Extinction and Inattention: No abnormality - Total Score NIH Stroke Scale Score: 0
[2018-04-02] MEDS ORDERED: ACETAMINOPHEN 1000 MG/100 ML VIAL (NON FORMULARY) IVPB ONE (19:54)
[2018-04-02] MEDS ORDERED: ACETAMINOPHEN INJECTION 100 ML IVPB ONE (21:22)
[2018-04-02] MEDS ORDERED: NITROGLYCERIN SUBLINGUAL 1/150 0.4 MG TAB SL PRN (21:45)
[2018-04-02] MEDS: SERTRALINE HCL 25 MG TABLET (FP) PO SCH (22:00)
[2018-04-02] MEDS: LATANOPROST 0.005% OPHTH SOLN 2.5ML BOTTLE OU SCH (22:00)
[2018-04-02] MEDS: BUDESONIDE/FORMETEROL FUMARATE 80/4.5 mcg INHALER IH SCH (22:00)
[2018-04-02] MEDS: INSULIN SLIDING SCALE (NOVOLOG) 1 VIAL SQ SCH (22:15)
[2018-04-02] MEDS ORDERED: CARVEDILOL 3.125 MG TABLET (FP) ONE (23:35)
[2018-04-02] MEDS ORDERED: ATORVASTATIN CA 10 MG TABLET (FP) ONE (23:35)
[2018-04-02] MEDS ORDERED: SERTRALINE HCL 50 MG TABLET (FP) ONE (23:36)
[2018-04-02] MEDS ORDERED: HEPARIN NA (PORCINE) 5,000 UNITS/ML 1ML VIAL ONE (23:36)
[2018-04-02] MEDS: HEPARIN NA (PORCINE) 5,000 UNITS/ML 1ML VIAL SQ SCH (23:51)
[2018-04-02] MEDS: ATORVASTATIN CA 10 MG TABLET (FP) PO SCH (23:51)
[2018-04-02] MEDS: CARVEDILOL 6.25 MG TABLET (FP) PO SCH (23:51)
[2018-04-03] MEDS ORDERED: sitaGLIPtin PHOSPHATE 50 MG TABLET ONE (06:45)
[2018-04-03] MEDS ORDERED: LEVOTHYROXINE NA 25 MCG TABLET (FP) ONE (06:45)
[2018-04-03] MEDS ORDERED: metFORMIN HCL 500 MG TABLET (FP) ONE (06:46)
[2018-04-03] MEDS: INSULIN SLIDING SCALE (NOVOLOG) 1 VIAL SQ SCH ×4 (06:51→23:13)
[2018-04-03] MEDS: metFORMIN HCL 500 MG TABLET (FP) PO SCH (06:52)
[2018-04-03 06:56] LABS: BASO % 0.6 % (0-2.0); EOS % 2.1 % (0-4.5); HEMATOCRIT 32.6 % (32.4-45.2); HEMOGLOBIN 10.7 GM/dL (10.7-15.3); LYMPH % 26.5 % (8-40); MCH 28.6 pg (25.7-33.7); MCHC 32.8 g/dl (32.0-36.0); MEAN PLT VOLUME 7.7 fl (7.5-11.1); MONO % 10.3 % (3.8-10.2); NEUT % 60.5 % (42.8-82.8); PLATELET COUNT 266 K/MM3 (134-434); RBC 3.75 M/mm3 (3.60-5.2); RDW 14.3 % (11.6-15.6); WHITE BLOOD COUNT 7.1 K/mm3 (4.0-10.0)
[2018-04-03] MEDS ORDERED: sitaGLIPtin PHOSPHATE 100 MG TABLET (FP) PO SCH (07:00)
[2018-04-03] MEDS: LEVOTHYROXINE NA 25 MCG TABLET (FP) PO SCH (07:05)
[2018-04-03 08:01] LABS: ALBUMIN 3.1 g/dl (3.4-5.0); ALK PHOS 77 U/L (45-117); ANION GAP 7 MMOL/L (8-16); BILIRUBIN,TOTAL 0.4 mg/dL (0.2-1); BLOOD UREA NITROGEN 18 mg/dL (7-18); CALCIUM 8.9 mg/dL (8.5-10.1); CHLORIDE 102 mmol/L (98-107); CO2 29 mmol/L (21-32); CREATININE 0.6 mg/dL (0.55-1.3); GLUCOSE,RANDOM 97 mg/dL (74-106); POTASSIUM 4.1 mmol/L (3.5-5.1); SGOT/AST 16 U/L (15-37); SGPT/ALT 17 U/L (13-61); SODIUM 138 mmol/L (136-145); TOT PROT 6.6 g/dl (6.4-8.2)
--- NOTE | 2018-04-03 08:53 | CON.ORTH ---
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) Pulmonary: Yes: COPD, Sleep Apnea Gastrointestinal: Yes: Diverticulosis, Hiatal Hernia, Other (multiple colon adenomas removed 2014, 2015, capsule endoscopy Dr Olvera 2015 unrevealing) Hepatobiliary: Yes: Cholelithiasis, Other (fatty liver) Renal/: Yes: Renal Calculi Musculoskeletal: Yes: Osteoarthritis Endocrine: Yes: Diabetes Mellitus (with retinopathy), Hypothyroidism Additional Medical History: Legally blind with diabetic retinopathy, macular degeneration and glaucoma - Past Surgical History Past Surgical History: Yes: Appendectomy (ruptured appendix), Cataract Removal, Colonoscopy, Hernia Repair, Tonsillectomy, Upper Endoscopy, Valve Replacement - Alcohol/Substance Use Hx Alcohol Use: No History of Substance Use: reports: None - Smoking History Smoking history: Former smoker Have you smoked in the past 12 months: No Aproximately how many cigarettes per day: 0 If you are a former smoker, when did you quit?: 1972 - Social History ADL: Independent History of Recent Travel: No Home Medications - Allergies Allergies/Adverse Reactions: Allergies Allergy/AdvReac Type Severity Reaction Status Date / Time quinine [Quinine] Allergy Mild Rash Verified 04/02/18 15:11 Sulfa (Sulfonamide Allergy Mild Rash Verified 04/02/18 15:11 Antibiotics) [Sulfa(Sulfonamide Antibiotics)] - Home Medications Home Medications: Ambulatory Orders Losartan Potassium [Cozaar] 50 mg PO DAILY 12/18/14 Sitagliptin Phosphate [Januvia] 100 mg PO DAILY 12/18/14 Atorvastatin Ca [Lipitor] 10 mg PO HS #1 tablet 12/22/14 Cholecalciferol (Vitamin D3) [Vitamin D3 -] 1,000 unit PO DAILY 03/10/16 Fluticasone/Salmeterol [Advair 250-50 Diskus] 1 each IH BID 04/04/16 Latanoprost 0.005% Eye Drops [Xalatan 0.005% Eye Drops -] 1 drop OU HS 07/25/16 Ascorbic Acid [Vitamin C] 500 mg PO DAILY 05/10/17 Levothyroxine [Synthroid -] 0.025 mcg PO DAILY 05/10/17 Nitroglycerin 0.4 mg SL PRN 05/10/17 Sertraline HCl [Zoloft] 25 mg PO HS 05/10/17 Carvedilol [Coreg -] 6.25 mg PO BID #60 tablet 05/13/17 Spironolactone [Aldactone] 25 mg PO DAILY #30 tablet 05/13/17 Calcium 250Mg/Vit-D 125 Units [Oscal 250 mg+D -] 1 combo PO DAILY 10/24/17 Ferrous Sulfate 325 mg PO DAILY 10/24/17 Metformin HCl [Glucophage] 1,000 mg PO DAILY 10/24/17 [place]-3/Dha/Epa/Fish Oil [Fish Oil [place]-3 EC 1,200 mg] 1 each PO DAILY Cephalexin [Keflex] 250 mg PO QID #20 capsule 03/26/18 Family Disease History - Family Disease History Family Disease History: Heart Disease: Mother ( 84 [place], had polio), Son ( multiple eye surgeries), Other: Father (emphysema, 64 of PE) Physical Exam for Ortho Vital Signs: Vital Signs Temperature 98.6 F 04/02/18 19:46 Pulse Rate 67 04/03/18 08:39 Respiratory Rate 18 04/03/18 08:39 Blood Pressure 127/67 04/03/18 08:39 O2 Sat by Pulse Oximetry (%) 95 04/03/18 08:39 Labs: CBC, BMP 04/03/18 06:00 04/03/18 06:00 - Upper Extremity Shoulder: Yes: Left, Pain, Swelling, Tenderness, Other (+ ttp distal clavicle, nvi) - Affected Extremity Neuro/Vascular Assessment: Yes: Warm, [place], Normal Sensation, Left Foot Drop Imaging - Results X-ray: Image Reviewed Cat Scan: Report Reviewed, Image Reviewed Assessment/Plan 82 y/o female presenting to [facility] ER via ambulance from home complaining of worsening generalized weakness for the past week. Additionally endorses left foot weakness starting last night. Denies previous extremity weaknesses. The pt was evaluated and discharged from this facility last week following a traumatic fall resulting in a left clavicle fracture. Pt was unable to follow up with orthopedics as outpatient. Pt states that her left foot has been weak and unable to move since last Tuesday. Denies any bowel/bladder dysfunction, numbness/tingling. a/p- left distal clavicle fx, L5-S1 DDD with left neural foramen stenosis No surgery needed to clavicle fx sling for comfort ROM exercises pain control Recommend Neurosurgery consult for LS spine/foot drop d/w Dr. Rodriguez
[2018-04-03] MEDS ORDERED: SPIRONOLACTONE 25 MG TABLET (FP) PO SCH (10:00)
[2018-04-03] MEDS ORDERED: LOSARTAN POTASSIUM 50 MG TABLET (FP) PO SCH (10:00)
[2018-04-03] MEDS: CHOLECALCIFEROL (VITAMIN D3) 1,000 UNIT TABLET (FP) PO SCH (10:20)
[2018-04-03] MEDS: ASCORBIC ACID 500 MG TABLET (FP) PO SCH (10:21)
--- NOTE | 2018-04-03 10:26 | HP ---
Admitting History and Physical - Primary Care Physician PCP: Jorje Tom - Admission Chief Complaint: near fall History of Present Illness: Ms. Valadez is a pleasant 82 year old female who comes in with worsened functional capability at home. Pt had a mechanical fall 1 week ago resulting in left clavicular fx, she was evaluated in ED and discharged home. Since being at home, pt reports inability to perform ADLs independently due to increased pain and weakness. On Tues, she reports noticing left foot drop and difficulty ambulating. She reports almost falling at home due to above symptoms. Denies any falls, head trauma. Pt was unable to follow up with ortho as outpatient because she was not able to leave home. 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) Pulmonary: Yes: COPD, Sleep Apnea Gastrointestinal: Yes: Diverticulosis, Hiatal Hernia, Other (multiple colon adenomas removed 2014, 2015, capsule endoscopy Dr Olvera 2015 unrevealing) Hepatobiliary: Yes: Cholelithiasis, Other (fatty liver) Renal/: Yes: Renal Calculi Heme/Onc: Yes: Anemia Musculoskeletal: Yes: Osteoarthritis Endocrine: Yes: Diabetes Mellitus (with retinopathy), Hypothyroidism - Past Surgical History Past Surgical History: Yes: Appendectomy (ruptured appendix), Cataract Removal, Colonoscopy, Hernia Repair, Tonsillectomy, Upper Endoscopy, Valve Replacement (s /p TAVR 2016, MVR 10/2017) - Smoking History Smoking history: Former smoker Have you smoked in the past 12 months: No Aproximately how many cigarettes per day: 0 If you are a former smoker, when did you quit?: 1972 - Alcohol/Substance Use Hx Alcohol Use: No History of Substance Use: reports: None - Social History Usual Living Arrangement: Yes: Alone ADL: Independent History of Recent Travel: No Home Medications - Allergies Allergies/Adverse Reactions: Allergies Allergy/AdvReac Type Severity Reaction Status Date / Time quinine [Quinine] Allergy Mild Rash Verified 04/02/18 15:11 Sulfa (Sulfonamide Allergy Mild Rash Verified 04/02/18 15:11 Antibiotics) [Sulfa(Sulfonamide Antibiotics)] - Home Medications Home Medications: Ambulatory Orders Sitagliptin Phosphate [Januvia] 100 mg PO DAILY 12/18/14 Atorvastatin Ca [Lipitor] 10 mg PO HS #1 tablet 12/22/14 Cholecalciferol (Vitamin D3) [Vitamin D3 -] 1,000 unit PO DAILY 03/10/16 Latanoprost 0.005% Eye Drops [Xalatan 0.005% Eye Drops -] 1 drop OU HS 07/25/16 Ascorbic Acid [Vitamin C] 500 mg PO DAILY 05/10/17 Levothyroxine [Synthroid -] 0.025 mcg PO DAILY 05/10/17 Sertraline HCl [Zoloft] 25 mg PO HS 05/10/17 Carvedilol [Coreg -] 6.25 mg PO BID #60 tablet 05/13/17 Calcium 250Mg/Vit-D 125 Units [Oscal 250 mg+D -] 1 combo PO DAILY 10/24/17 Ferrous Sulfate 325 mg PO DAILY 10/24/17 Metformin HCl [Glucophage] 500 mg PO BID 10/24/17 [place]-3/Dha/Epa/Fish Oil [Fish Oil [place]-3 EC 1,200 mg] 1 each PO DAILY Albuterol Sulfate 0.5% [Ventolin 0.5% Nebulizing Soln. -] 5 mg IH Q6H PRN Aspirin [Aspirin EC] 81 mg PO DAILY 04/03/18 Fluticasone/Vilanterol [Breo Ellipta 100-25 Mcg INH] 1 mcg IH DAILY 04/03/18 Ranitidine [Zantac -] 150 mg PO DAILY 04/03/18 Family Disease History - Family Disease History Family Disease History: Heart Disease: Mother ( 84 [place], had polio), Son ( multiple eye surgeries), Other: Father (emphysema, 64 of [place]) Review of Systems Findings/Remarks: as per hpi Physical Examination Vital Signs: Vital Signs Temperature 98.6 F 04/02/18 19:46 Pulse Rate 67 04/03/18 08:39 Respiratory Rate 18 04/03/18 08:39 Blood Pressure 127/67 04/03/18 08:39 O2 Sat by Pulse Oximetry (%) 95 04/03/18 08:39 Labs: CBC, BMP 04/03/18 06:00 04/03/18 06:00 Imaging - Results Cat Scan: Report Reviewed (Lumbar/spine- L5-S1. 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 Moderate facet joint arthropathy. Minimal grade 1 degenerative anterior spondylolisthesis of L5 on S1. Left neural foraminal narrowing. Head: no acute findings cervical spine: no acute findings) Ultrasound: Report Reviewed (b/l duplex neg dvt) EKG: Report Reviewed (NSR) Assessment/Plan (1) Foot drop, left Assessment/Plan: acute CT L/S- grade 1 degenerative anterior spondylolisthesis of L5 on S1. Left neural foraminal narrowing. pt reports intermittent severe LBP radiating to LLE, impaired ambulation nsgy consult appreciated- recommend surgery cardiology consulted to assess surgical candidacy neurology consulted for further guidance Code(s): M21.372 - FOOT DROP, LEFT FOOT (2) Spondylolisthesis at L5-S1 level Assessment/Plan: as above Code(s): M43.17 - SPONDYLOLISTHESIS, LUMBOSACRAL REGION (3) Weakness Assessment/Plan: 2/[address] neg PT ordered possible SNF placement Code(s): R53.1 - WEAKNESS (4) Clavicle fracture Assessment/Plan: stable ortho evaluated- no surgical intervention adequate pain control Code(s): S42.009A - FRACTURE OF UNSP PART OF UNSP CLAVICLE, INIT FOR CLOS FX Qualifiers: Encounter type: subsequent encounter Clavicle location: lateral end Fracture type: closed Fracture alignment: displaced Laterality: left (5) Osteoarthritis Assessment/Plan: continue vitamin D Code(s): M19.90 - UNSPECIFIED OSTEOARTHRITIS, UNSPECIFIED SITE Qualifiers: Osteoarthritis location: multiple joints Osteoarthritis type: primary Qualified Code(s): M15.0 - Primary generalized (osteo)arthritis (6) Elevated d-dimer Assessment/Plan: ddimer level 1731 b/l duplex neg for dvt surgery in 10/2017 does not suspect PE pulm consulted- defer further imaging to pulm Code(s): R79.89 - OTHER SPECIFIED ABNORMAL FINDINGS OF BLOOD CHEMISTRY (7) S/P TAVR (transcatheter aortic valve replacement) Assessment/Plan: stable, s/p tavr 08/13 Code(s): Z95.2 - PRESENCE OF PROSTHETIC HEART VALVE (8) S/P mitral valve replacement Assessment/Plan: stable, s/p bioprosthetic mvr 11/11 Code(s): Z95.2 - PRESENCE OF PROSTHETIC HEART VALVE (9) HTN (hypertension) Assessment/Plan: controlled continue carvedilol Code(s): I10 - ESSENTIAL (PRIMARY) HYPERTENSION Qualifiers: Hypertension type: essential hypertension Qualified Code(s): I10 - Essential (primary) hypertension (10) Hypothyroid Assessment/Plan: chronic continue synthroid Code(s): E03.9 - HYPOTHYROIDISM, UNSPECIFIED Qualifiers: Hypothyroidism type: unspecified Qualified Code(s): E03.9 - Hypothyroidism , unspecified (11) Hyperlipidemia Assessment/Plan: Controlled Continue lipitor, lovaza continue lifestyle modifications Code(s): E78.5 - HYPERLIPIDEMIA, UNSPECIFIED (12) GERD (gastroesophageal reflux disease) Assessment/Plan: Stable Continue zantac Code(s): K21.9 - GASTRO-ESOPHAGEAL REFLUX DISEASE WITHOUT ESOPHAGITIS Qualifiers: Esophagitis presence: without esophagitis Qualified Code(s): K21.9 - Gastro -esophageal reflux disease without esophagitis (13) Diabetes Assessment/Plan: controlled continue metformin/januvia Code(s): E11.9 - TYPE 2 DIABETES MELLITUS WITHOUT COMPLICATIONS Qualifiers: Diabetes mellitus type: type 2 Diabetes mellitus complication status: with ophthalmic complications Diabetes mellitus complication detail: with diabetic retinopathy Diabetes mellitus tufting supervisor insulin use: without tufting supervisor use (14) CAD (coronary artery disease) Assessment/Plan: Stable continue asa/statin Code(s): I25.10 - ATHSCL HEART DISEASE OF [place] CORONARY ARTERY W/O ANG PCTRS Qualifiers: Coronary Disease-Associated Artery/Lesion type: [place] artery [place] vs. transplanted heart: [place] heart Associated angina: without angina Qualified Code(s): I25.10 - Atherosclerotic heart disease of [place] coronary artery without angina pectoris (15) COPD (chronic obstructive pulmonary disease) Assessment/Plan: chronic continue breo, albuterol Code(s): J44.9 - CHRONIC OBSTRUCTIVE PULMONARY DISEASE, UNSPECIFIED Qualifiers: COPD type: unspecified COPD Qualified Code(s): J44.9 - Chronic obstructive pulmonary disease, unspecified
[2018-04-03] MEDS: HEPARIN NA (PORCINE) 5,000 UNITS/ML 1ML VIAL SQ SCH ×2 (10:28→22:55)
--- NOTE | 2018-04-03 10:40 | EKG ---
Test Reason : Blood Pressure : / mmHG Vent. Rate : 075 BPM Atrial Rate : 075 BPM P-R Int : 208 ms QRS Dur : 106 ms QT Int : 420 ms P-R-T Axes : 064 -46 041 degrees QTc Int : 469 ms NORMAL SINUS RHYTHM POSSIBLE LEFT ATRIAL ENLARGEMENT LEFT ANTERIOR FASCICULAR BLOCK LEFT VENTRICULAR HYPERTROPHY ABNORMAL ECG WHEN COMPARED WITH ECG OF 26-MAR-2018 21:45, T WAVE VARIATION Confirmed by GIO GUZMÁN MD ([id number]) on 04/03/2018 10:40:07 AM Referred By: Confirmed By:GIO GUZMÁN MD
[2018-04-03] MEDS: OMEGA-3 ACID ETHYL ESTERS (FATTY-ACIDS) 1 GM CAPSULE (FP) PO SCH ×2 (10:53→22:55)
[2018-04-03] MEDS: CALCIUM 250MG/VIT-D 125 UNITS 1 COMBO TABLET PO SCH (10:53)
[2018-04-03] MEDS: FERROUS SO4 325 MG TABLET (FP) PO SCH (10:53)
[2018-04-03] MEDS: CARVEDILOL 6.25 MG TABLET (FP) PO SCH ×2 (10:53→22:56)
[2018-04-03] MEDS: BUDESONIDE/FORMETEROL FUMARATE 80/4.5 mcg INHALER IH SCH ×2 (12:44→22:58)
[2018-04-03] MEDS ORDERED: ALBUTEROL SO4 0.5 % INH SOLN 2.5 MG/0.5 ML VIAL.NEB. NEB PRN ×2 (14:11→14:24)
--- NOTE | 2018-04-03 15:58 | CONSULT ---
Consult - text type - Consultation Consultation Note: NEUROSURGERY CONSULTATION Stella Valadez is an 82 year old female with a medical history of Mitral and Aortic Valve replacements (TAVR) who is maintained on 81mg ASA daily. She was in her relative state of good health until one week ago when she fell and fractured her Left clavicle. She was treated and released from the ER at that time. The patient reports having difficulty with knee pain on the Left and dragging her Left foot somewhat for the past week. She comes into the ER with significant Left dorsiflexion weakness (1-2/5) and complaints of back pain which has significantly increased over the past few weeks. The patient cannot have MRI due to metallic implants in her pelvis. CT Lumbar demonstrates moderate multilevel degenerative changes with significant Left L5 nerve root foraminal compression from a Grade 1 spondylolisthesis with facet hypertrophy and osteophytes. I discussed the role of surgical decompression and stabilization for acute foot drop of this severity with clear nerve root compression. I described the risks, benefits and alternatives to L5S1 laminectomies and complete foraminal decompression with possible interbody cage and L5S1 posterior instrumented fusion in detail. I explained that the risks included, but were not limited to: , coma, paralysis, bleeding, infection, CSF leak possibly requiring spinal drainage or additional surgery, failure to fuse, instrumentation migration/ malfunction/malposition and the need for additional surgery. All questions were answered. Informed consent was obtained. I offered her the option of seeking another opinion or another surgeon. Although surgery is the standard treatment for fixed motor deficits, particularly of acute onset, this level of severity and with radiographic findings which correlate with the clinical findings, I explained that given her age and medical comorbidities, it may be appropriate to consider expectant management or high dose steroids (either oral or via BECKY) as well. I explained that I would review her imaging and discuss her medical condition with her primary team prior to making a final recommendation. The patient agrees with this plan of care.
--- NOTE | 2018-04-03 16:47 | CON.CARD ---
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 Benz 03/13/2018 presented for left foot drop, increased LBP with gait instability, fall with left clavicular fracture last week, LS-CT showed moderate multilevel degenerative changes with significant Left L5 nerve root foraminal compression from a Grade 1 spondylolisthesis with facet hypertrophy and osteophytes, NSG offered option of surgical decompression and stabilization vs epidural injections, regarding CV symptoms, she denies dyspnea worse than usual baseline, chest pain, near or true syncope, palpitations, orthopnea, PND or LE edema. 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) Pulmonary: Yes: COPD, Sleep Apnea Gastrointestinal: Yes: Diverticulosis, Hiatal Hernia, Other (multiple colon adenomas removed 2014, 2015, capsule endoscopy Dr Olvera 2015 unrevealing) Hepatobiliary: Yes: Cholelithiasis, Other (fatty liver) Renal/: Yes: Renal Calculi Musculoskeletal: Yes: Osteoarthritis Endocrine: Yes: Diabetes Mellitus (with retinopathy), Hypothyroidism Additional Medical History: Legally blind with diabetic retinopathy, macular degeneration and glaucoma - Past Surgical History Past Surgical History: Yes: Appendectomy (ruptured appendix), Cataract Removal, Colonoscopy, Hernia Repair, Tonsillectomy, Upper Endoscopy, Valve Replacement (s /p TAVR 2016, MVR 10/2017) - Alcohol/Substance Use Hx Alcohol Use: No History of Substance Use: reports: None - Smoking History Smoking history: Former smoker Have you smoked in the past 12 months: No Aproximately how many cigarettes per day: 0 If you are a former smoker, when did you quit?: 1972 - Social History ADL: Independent History of Recent Travel: No Home Medications - Allergies Allergies/Adverse Reactions: Allergies Allergy/AdvReac Type Severity Reaction Status Date / Time quinine [Quinine] Allergy Mild Rash Verified 04/02/18 15:11 Sulfa (Sulfonamide Allergy Mild Rash Verified 04/02/18 15:11 Antibiotics) [Sulfa(Sulfonamide Antibiotics)] - Home Medications Home Medications: Ambulatory Orders Sitagliptin Phosphate [Januvia] 100 mg PO DAILY 12/18/14 Atorvastatin Ca [Lipitor] 10 mg PO HS #1 tablet 12/22/14 Cholecalciferol (Vitamin D3) [Vitamin D3 -] 1,000 unit PO DAILY 03/10/16 Latanoprost 0.005% Eye Drops [Xalatan 0.005% Eye Drops -] 1 drop OU HS 07/25/16 Ascorbic Acid [Vitamin C] 500 mg PO DAILY 05/10/17 Levothyroxine [Synthroid -] 0.025 mcg PO DAILY 05/10/17 Sertraline HCl [Zoloft] 25 mg PO HS 05/10/17 Carvedilol [Coreg -] 6.25 mg PO BID #60 tablet 05/13/17 Calcium 250Mg/Vit-D 125 Units [Oscal 250 mg+D -] 1 combo PO DAILY 10/24/17 Ferrous Sulfate 325 mg PO DAILY 10/24/17 Metformin HCl [Glucophage] 500 mg PO BID 10/24/17 [place]-3/Dha/Epa/Fish Oil [Fish Oil [place]-3 EC 1,200 mg] 1 each PO DAILY Albuterol Sulfate 0.5% [Ventolin 0.5% Nebulizing Soln. -] 5 mg IH Q6H PRN Aspirin [Aspirin EC] 81 mg PO DAILY 04/03/18 Fluticasone/Vilanterol [Breo Ellipta 100-25 Mcg INH] 1 mcg IH DAILY 04/03/18 Ranitidine [Zantac -] 150 mg PO DAILY 04/03/18 Family Disease History - Family Disease History Family Disease History: Heart Disease: Mother ( 84 [place], had polio), Son ( multiple eye surgeries), Other: Father (emphysema, 64 of [place]) Review of Systems - Review of Systems Constitutional: reports: No Symptoms Eyes: reports: No Symptoms HENT: reports: No Symptoms Neck: reports: No Symptoms Cardiovascular: reports: Shortness of Breath Respiratory: reports: SOB on Exertion Gastrointestinal: reports: No Symptoms Genitourinary: reports: No Symptoms Musculoskeletal: reports: Back Pain Neurological: reports: Other (left foot drop) Vital Signs: Vital Signs Temperature 98.6 F 04/02/18 19:46 Pulse Rate 67 04/03/18 08:39 Respiratory Rate 18 04/03/18 08:39 Blood Pressure 127/67 04/03/18 08:39 O2 Sat by Pulse Oximetry (%) 95 04/03/18 08:39 Constitutional: Yes: No Distress, Calm, Thin Neck: Yes: Supple Respiratory: Yes: Regular, Diminished Gastrointestinal: Yes: Normal Bowel Sounds, Soft Cardiovascular: Yes: Regular Rate and Rhythm JVD: No Carotid Bruit: No Heart Sounds: Yes: S1, S2 Murmur: Yes: Systolic Murmur, Grade 1 Edema: No - Other Data Labs, Other Data: CBC, BMP 04/03/18 06:00 04/03/18 06:00 Troponin, BNP 04/02/18 16:03 Troponin I < 0.02 Troponin, BNP 04/02/18 16:03 Troponin I < 0.02 NSR LVH, LAFB similar to previous Echo: Report Reviewed Prior Cardiac Procedures: Valve Surgery Ejection Fraction %: LVEF > or = 40 % Imaging - Results Chest X-ray: Report Reviewed (Distal left clavicular fracture) Problem List - Problems (1) Lumbar back pain with radiculopathy affecting left lower extremity Code(s): M54.16 - RADICULOPATHY, LUMBAR REGION (2) Foot drop, left Code(s): M21.372 - FOOT DROP, LEFT FOOT (3) S/P mitral valve replacement Code(s): Z95.2 - PRESENCE OF PROSTHETIC HEART VALVE (4) Spondylolisthesis at L5-S1 level Code(s): M43.17 - SPONDYLOLISTHESIS, LUMBOSACRAL REGION (5) T2DM (type 2 diabetes mellitus) Code(s): E11.9 - TYPE 2 DIABETES MELLITUS WITHOUT COMPLICATIONS Qualifiers: Diabetes mellitus group home insulin use: without termite helper use (6) CAD (coronary artery disease) Code(s): I25.10 - ATHSCL HEART DISEASE OF [place] CORONARY ARTERY W/O ANG PCTRS Qualifiers: Coronary Disease-Associated Artery/Lesion type: [place] artery [place] vs. transplanted heart: [place] heart Associated angina: without angina Qualified Code(s): I25.10 - Atherosclerotic heart disease of [place] coronary artery without angina pectoris (7) HTN (hypertension) Code(s): I10 - ESSENTIAL (PRIMARY) HYPERTENSION Qualifiers: Hypertension type: essential hypertension Qualified Code(s): I10 - Essential (primary) hypertension (8) Hyperlipidemia Code(s): E78.5 - HYPERLIPIDEMIA, UNSPECIFIED Qualifiers: Hyperlipidemia type: pure hypercholesterolemia Qualified Code(s): E78.00 - Pure hypercholesterolemia, unspecified; E78.0 - Pure hypercholesterolemia (9) Hypothyroid Code(s): E03.9 - HYPOTHYROIDISM, UNSPECIFIED Qualifiers: Hypothyroidism type: unspecified Qualified Code(s): E03.9 - Hypothyroidism , unspecified (10) Pulmonary hypertension Code(s): I27.2 - OTHER SECONDARY PULMONARY HYPERTENSION * DO NOT USE * (11) S/P TAVR (transcatheter aortic valve replacement) Code(s): Z95.2 - PRESENCE OF PROSTHETIC HEART VALVE Assessment/Plan December 22, 2017 Echo: Normal LV size with mildly decreased LV fxn, bioprosthetic AV and MV is seen, mild TR RVSP 40 mmHg 1. L5-S1 spinal stenosis and radiculopathy 2. Severe aortic valve disease () s/p TAVR 3. s/p mitral valve bioprosthetic replacement, LV myomectomy and ALFREDO closure with Atriclip 10/2017 for ruptured mitral chordae with mod-severe mitral valve regurgitation 4. Hypertension 5. Hypercholesterolemia 6. COPD 7. Sleep apnea 8. Anemia 9. Diabetes mellitus 10. Hypothyroidism PLAN: 1. Given multiple co-morbidities and complex medical history agree with trial of epidural steroid injections as opposed to surgical intervention 2. Continue Carvedilol 6.25 bid, ASA 81 qd, Lipitor 10 qd 3. Thank you for consultative opportunity
[2018-04-03 18:34] VITALS: BMI 26.9
[2018-04-03] MEDS ORDERED: FLU VACCINE QUAD 60 MCG/0.5 ML (MDV 18-19) IM ONE (21:00)
[2018-04-03] MEDS ORDERED: PT OWN MED DRAWER 7, Y5N ONE (21:24)
[2018-04-03] MEDS: ATORVASTATIN CA 10 MG TABLET (FP) PO SCH (22:56)
[2018-04-03] MEDS: LATANOPROST 0.005% OPHTH SOLN 2.5ML BOTTLE OU SCH (22:57)
[2018-04-03] MEDS: SERTRALINE HCL 25 MG TABLET (FP) PO SCH (22:57)
[2018-04-04] MEDS: LEVOTHYROXINE NA 25 MCG TABLET (FP) PO SCH (06:42)
[2018-04-04] MEDS: sitaGLIPtin PHOSPHATE 50 MG TABLET PO SCH (06:42)
[2018-04-04] MEDS: ACETAMINOPHEN 325 MG TABLET (FP) PO PRN (06:43)
[2018-04-04] MEDS: metFORMIN HCL 500 MG TABLET (FP) PO SCH (06:43)
[2018-04-04] MEDS: INSULIN SLIDING SCALE (NOVOLOG) 1 VIAL SQ SCH ×2 (06:43→12:10)
[2018-04-04 08:26] LABS: BASO % 0.6 % (0-2.0); EOS % 1.8 % (0-4.5); HEMATOCRIT 32.6 % (32.4-45.2); HEMOGLOBIN 10.9 GM/dL (10.7-15.3); LYMPH % 23.8 % (8-40); MCH 28.6 pg (25.7-33.7); MCHC 33.3 g/dl (32.0-36.0); MEAN CELL VOLUME 85.9 fl (80-96); MEAN PLT VOLUME 7.4 fl (7.5-11.1); NEUT % 62.8 % (42.8-82.8); PLATELET COUNT 261 K/MM3 (134-434); RBC 3.79 M/mm3 (3.60-5.2); RDW 14.6 % (11.6-15.6); WHITE BLOOD COUNT 6.6 K/mm3 (4.0-10.0)
[2018-04-04 09:05] LABS: ANION GAP 8 MMOL/L (8-16); BLOOD UREA NITROGEN 13 mg/dL (7-18); CALCIUM 8.8 mg/dL (8.5-10.1); CHLORIDE 102 mmol/L (98-107); CO2 28 mmol/L (21-32); CREATININE 0.6 mg/dL (0.55-1.3); GLUCOSE,RANDOM 101 mg/dL (74-106); POTASSIUM 4.3 mmol/L (3.5-5.1); SODIUM 137 mmol/L (136-145)
[2018-04-04] MEDS ORDERED: INSULIN (LEVEMIR) 100 UNITS/ML UNITS SQ ONE (09:13)
--- NOTE | 2018-04-04 09:44 | CONSULT ---
Consult - text type - Consultation Consultation Note: Neurology History of Present Illness History of Present Illness: 82 year old female who comes in with worsened functional capability at home. Pt had a mechanical fall 1 week ago resulting in left clavicular fx, she was evaluated in ED and discharged home. Since being at home, pt reported inability to perform ADLs independently due to increased pain and weakness. One weke prior to admission she reported noticing left foot drop and difficulty ambulating. She reported almost falling at home due to above symptoms. Denied any falls, head trauma. Pt was unable to follow up with ortho as outpatient because she was not able to leave home. She was admitted to [facility] for further evaluation and management. Although right foot with full strength to dorsiflexion, L foot is limited. 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 Moderate facet joint arthropathy. Minimal grade 1 degenerative anterior spondylolisthesis of L5 on S1. Left neural foraminal narrowing. NSGY consulted, note reviewed, recommended considering further medical mgmt. Has not completed EMG or had PT. May also benefit from brace. Natural course usually requires 1-2 months before significant improvement may be seen in cases of Peroneal palsy. 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) Pulmonary: Yes: COPD, Sleep Apnea Gastrointestinal: Yes: Diverticulosis, Hiatal Hernia, Other (multiple colon adenomas removed 2014, 2015, capsule endoscopy Dr Olvera 2015 unrevealing) Hepatobiliary: Yes: Cholelithiasis, Other (fatty liver) Renal/: Yes: Renal Calculi Heme/Onc: Yes: Anemia Musculoskeletal: Yes: Osteoarthritis Endocrine: Yes: Diabetes Mellitus (with retinopathy), Hypothyroidism - Past Surgical History Past Surgical History: Yes: Appendectomy (ruptured appendix), Cataract Removal, Colonoscopy, Hernia Repair, Tonsillectomy, Upper Endoscopy, Valve Replacement (s /p TAVR 2016, MVR 10/2017) - Smoking History Smoking history: Former smoker Have you smoked in the past 12 months: No Aproximately how many cigarettes per day: 0 If you are a former smoker, when did you quit?: 1972 - Alcohol/Substance Use Hx Alcohol Use: No History of Substance Use: reports: None - Social History Usual Living Arrangement: Yes: Alone ADL: Independent History of Recent Travel: No Home Medications - Allergies Allergies/Adverse Reactions: Allergies Allergy/AdvReac Type Severity Reaction Status Date / Time quinine [Quinine] Allergy Mild Rash Verified 04/02/18 15:11 Sulfa (Sulfonamide Allergy Mild Rash Verified 04/02/18 15:11 Antibiotics) [Sulfa(Sulfonamide Antibiotics)] - Home Medications Home Medications: Ambulatory Orders Sitagliptin Phosphate [Januvia] 100 mg PO DAILY 12/18/14 Atorvastatin Ca [Lipitor] 10 mg PO HS #1 tablet 12/22/14 Cholecalciferol (Vitamin D3) [Vitamin D3 -] 1,000 unit PO DAILY 03/10/16 Latanoprost 0.005% Eye Drops [Xalatan 0.005% Eye Drops -] 1 drop OU HS 07/25/16 Ascorbic Acid [Vitamin C] 500 mg PO DAILY 05/10/17 Levothyroxine [Synthroid -] 0.025 mcg PO DAILY 05/10/17 Sertraline HCl [Zoloft] 25 mg PO HS 05/10/17 Carvedilol [Coreg -] 6.25 mg PO BID #60 tablet 05/13/17 Calcium 250Mg/Vit-D 125 Units [Oscal 250 mg+D -] 1 combo PO DAILY 10/24/17 Ferrous Sulfate 325 mg PO DAILY 10/24/17 Metformin HCl [Glucophage] 500 mg PO BID 10/24/17 [place]-3/Dha/Epa/Fish Oil [Fish Oil [place]-3 EC 1,200 mg] 1 each PO DAILY Albuterol Sulfate 0.5% [Ventolin 0.5% Nebulizing Soln. -] 5 mg IH Q6H PRN Aspirin [Aspirin EC] 81 mg PO DAILY 04/03/18 Fluticasone/Vilanterol [Breo Ellipta 100-25 Mcg INH] 1 mcg IH DAILY 04/03/18 Ranitidine [Zantac -] 150 mg PO DAILY 04/03/18 Family Disease History - Family Disease History Family Disease History: Heart Disease: Mother ( 84 [place], had polio), Son ( multiple eye surgeries), Other: Father (emphysema, 64 of [place]) Review of Systems Findings/Remarks: as per hpi, negative otherwise Physical Examination Vital Signs: Vital Signs Temperature 98.6 F 04/02/18 19:46 Pulse Rate 67 04/03/18 08:39 Respiratory Rate 18 04/03/18 08:39 Blood Pressure 127/67 04/03/18 08:39 O2 Sat by Pulse Oximetry (%) 95 04/03/18 08:39 Gen: Awake, alert, responds to questions Card: RRR, nml S1,S2 Resp: Normal symmetric effort, lungs clear to auscultation Abdomen: Soft, nontender, bowel sounds active Musculoskeletal: Adequate range of motion without significant deformity Head atraumatic and normocephalic CN: PERRL, EOMI intact, no apparent facial droop, no abnormalities in facial sensation, palate elevates, uvula and tongue midline Motor: L foot dorsiflexion limited 1+/5, otherwise grossly 5-/5 throughout Sensory: Intact to Temperature, light touch Coordination: Intact on [id number] testing Gait: deferred CBCD WBC 6.6 K/mm3 (4.0-10.0) 04/04/18 07:10 RBC 3.79 M/mm3 (3.60-5.2) 04/04/18 07:10 Hgb 10.9 GM/dL (10.7-15.3) 04/04/18 07:10 Hct 32.6 % (32.4-45.2) 04/04/18 07:10 MCV 85.9 fl (80-96) 04/04/18 07:10 MCHC 33.3 g/dl (32.0-36.0) 04/04/18 07:10 RDW 14.6 % (11.6-15.6) 04/04/18 07:10 Plt Count 261 K/MM3 (134-434) 04/04/18 07:10 MPV 7.4 fl (7.5-11.1) L 04/04/18 07:10 CMP Sodium 137 mmol/L (136-145) 04/04/18 07:10 Potassium 4.3 mmol/L (3.5-5.1) 04/04/18 07:10 Chloride 102 mmol/L (98-107) 04/04/18 07:10 Carbon Dioxide 28 mmol/L (21-32) 04/04/18 07:10 Anion Gap 8 MMOL/L (8-16) 04/04/18 07:10 BUN 13 mg/dL (7-18) 04/04/18 07:10 Creatinine 0.6 mg/dL (0.55-1.3) 04/04/18 07:10 Creat Clearance w eGFR > 60 (>60) 04/04/18 07:10 Random Glucose 101 mg/dL (74-106) 04/04/18 07:10 Calcium 8.8 mg/dL (8.5-10.1) 04/04/18 07:10 Total Bilirubin 0.4 mg/dL (0.2-1) 04/03/18 06:00 AST 16 U/L (15-37) 04/03/18 06:00 ALT 17 U/L (13-61) 04/03/18 06:00 Alkaline Phosphatase 77 U/L (45-117) 04/03/18 06:00 Total Protein 6.6 g/dl (6.4-8.2) 04/03/18 06:00 Albumin 3.1 g/dl (3.4-5.0) L 04/03/18 06:00 CARDIAC ENZYMES Troponin I < 0.02 ng/ml (0.00-0.05) 04/02/18 16:03 Imaging - Results Cat Scan: Report Reviewed (Lumbar/spine- L5-S1. 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 Moderate facet joint arthropathy. Minimal grade 1 degenerative anterior spondylolisthesis of L5 on S1. Left neural foraminal narrowing. Head: no acute findings cervical spine: no acute findings) Ultrasound: Report Reviewed (b/l duplex neg dvt) EKG: Report Reviewed (NSR) Plan 82 year old female who comes in with worsened functional capability at home. Pt had a mechanical fall 1 week ago resulting in left clavicular fx, she was evaluated in ED and discharged home. Since being at home, pt reported inability to perform ADLs independently due to increased pain and weakness. One weke prior to admission she reported noticing left foot drop and difficulty ambulating. She reported almost falling at home due to above symptoms. Denied any falls, head trauma. Pt was unable to follow up with ortho as outpatient because she was not able to leave home. She was admitted to [facility] for further evaluation and management. Although right foot with full strength to dorsiflexion, L foot is limited. 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 Moderate facet joint arthropathy. Minimal grade 1 degenerative anterior spondylolisthesis of L5 on S1. Left neural foraminal narrowing. CT head reviewed and no acute changes. NSGY consulted, note reviewed, recommended considering further medical mgmt. Has not completed EMG or had PT. May also benefit from brace. Natural course usually requires 1-2 months before significant improvement may be seen in cases of Peroneal palsy. Ordered EMG for further eval. Recommend PT, may benefit from brace. Fall precautions, assistive device for ambulation. Monitor blood pressure , maintain normal range.
[2018-04-04] MEDS ORDERED: PT OWN MED DRAWER 7, Y5N ONE (10:22)
--- NOTE | 2018-04-04 10:34 | CON.PULM ---
Consult Consult Specialty:: PULMONARY Referred by:: Dr. Crawford Reason for Consultation:: elevated d-dimer - History of Present Illness Chief Complaint: back pain, left foot drop History of Present Illness: 82yo female with h/o HTN, hyperlipidemia, hypothyroidism, asthma, severe s/p TAVR, h/o bio MVR, recent fall with left clavicular fracture who presents with lower back pain and left foot weakness. Found to have degenerative changes with L5 nerve root compression from spondylolisthesis. Noted to have an elevated d- dimer, pulmonary asked to evaluate. She denies any shortness of breath but states she has had chronic intermittent chest pain and palpitations since her cardiac surgery. No fevers, chills or sweats. She is a remote smoker who quit in the . She does have significant bruising from the fall on her left periorbital area as well as her left chest and back. Denies leg swelling or calf tenderness. No history of clots. She lives alone and is independent with her ADLs. 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) Pulmonary: Yes: COPD, Sleep Apnea Gastrointestinal: Yes: Diverticulosis, Hiatal Hernia, Other (multiple colon adenomas removed 2014, 2015, capsule endoscopy Dr Olvera 2015 unrevealing) Hepatobiliary: Yes: Cholelithiasis, Other (fatty liver) Renal/: Yes: Renal Calculi Musculoskeletal: Yes: Osteoarthritis Endocrine: Yes: Diabetes Mellitus (with retinopathy), Hypothyroidism Additional Medical History: Legally blind with diabetic retinopathy, macular degeneration and glaucoma - Past Surgical History Past Surgical History: Yes: Appendectomy (ruptured appendix), Cataract Removal, Colonoscopy, Hernia Repair, Tonsillectomy, Upper Endoscopy, Valve Replacement (s /p TAVR 2016, MVR 10/2017) - Alcohol/Substance Use Hx Alcohol Use: No History of Substance Use: reports: None - Smoking History Smoking history: Former smoker Have you smoked in the past 12 months: No Aproximately how many cigarettes per day: 0 If you are a former smoker, when did you quit?: 1972 - Social History ADL: Independent History of Recent Travel: No Home Medications - Allergies Allergies/Adverse Reactions: Allergies Allergy/AdvReac Type Severity Reaction Status Date / Time quinine [Quinine] Allergy Mild Rash Verified 04/02/18 15:11 Sulfa (Sulfonamide Allergy Mild Rash Verified 04/02/18 15:11 Antibiotics) [Sulfa(Sulfonamide Antibiotics)] - Home Medications Home Medications: Ambulatory Orders Sitagliptin Phosphate [Januvia] 100 mg PO DAILY 12/18/14 Atorvastatin Ca [Lipitor] 10 mg PO HS #1 tablet 12/22/14 Cholecalciferol (Vitamin D3) [Vitamin D3 -] 1,000 unit PO DAILY 03/10/16 Latanoprost 0.005% Eye Drops [Xalatan 0.005% Eye Drops -] 1 drop OU HS 07/25/16 Ascorbic Acid [Vitamin C] 500 mg PO DAILY 05/10/17 Levothyroxine [Synthroid -] 0.025 mcg PO ACBK 05/10/17 Sertraline HCl [Zoloft] 25 mg PO HS 05/10/17 Carvedilol [Coreg -] 6.25 mg PO BID #60 tablet 05/13/17 Calcium 250Mg/Vit-D 125 Units [Oscal 250 mg+D -] 1 combo PO DAILY 10/24/17 Ferrous Sulfate 325 mg PO DAILY 10/24/17 Metformin HCl [Glucophage] 500 mg PO BID 10/24/17 [place]-3/Dha/Epa/Fish Oil [Fish Oil [place]-3 EC 1,200 mg] 1 each PO DAILY Albuterol Sulfate 0.5% [Ventolin 0.5% Nebulizing Soln. -] 5 mg IH Q6H PRN Aspirin [Aspirin EC] 81 mg PO DAILY 04/03/18 Fluticasone/Vilanterol [Breo Ellipta 100-25 Mcg INH] 1 mcg IH DAILY 04/03/18 Ranitidine [Zantac -] 150 mg PO DAILY 04/03/18 Family Disease History - Family Disease History Family Disease History: Heart Disease: Mother ( 84 [place], had polio), Son ( multiple eye surgeries), Other: Father (emphysema, 64 of [place]) Review of Systems - Review of Systems Constitutional: reports: Weakness. denies: Chills, Fever Eyes: denies: Recent Change in Vision HENT: denies: Nasal Congestion, Throat Pain Neck: denies: Stiffness, Tenderness Cardiovascular: reports: Chest Pain, Palpitations. denies: Edema, Shortness of Breath Respiratory: denies: Cough, Hemoptysis, SOB, Wheezing Gastrointestinal: denies: Abdominal Pain, Nausea, Vomiting Genitourinary: denies: Dysuria, Hematuria Musculoskeletal: reports: Decreased ROM, Extremity Pain, Joint Pain Neurological: denies: Dizziness, Headache Endocrine: denies: Unexplained Weight Loss Physical Exam Vital Sings: Vital Signs Temperature 98.4 F 04/04/18 06:00 Pulse Rate 75 04/04/18 06:00 Respiratory Rate 20 04/04/18 06:00 Blood Pressure 125/75 04/04/18 06:00 O2 Sat by Pulse Oximetry (%) 96 04/03/18 18:36 Constitutional: Yes: Calm Eyes: Yes: Conjunctiva Clear, EOM Intact, Other (left periorbital ecchymoses) Neck: Yes: Supple, Trachea Midline Cardiovascular: Yes: Regular Rate and Rhythm Respiratory: Yes: Diminished (decreased breath sounds at the bases) ...Inspection: Yes: Hematoma (left anterior) ...Clubbing: No Gastrointestinal: Yes: Normal Bowel Sounds, Soft. No: Tenderness Edema: No Integumentary: Yes: Bruising Neurological: Yes: Alert, Oriented Labs: CBC, BMP 04/04/18 07:10 04/04/18 07:10 Imaging - Results Chest X-ray: Report Reviewed, Image Reviewed (left distal clavicular fracture) Problem List - Problems (1) Elevated d-dimer Code(s): R79.89 - OTHER SPECIFIED ABNORMAL FINDINGS OF BLOOD CHEMISTRY (2) Lumbar back pain with radiculopathy affecting left lower extremity Code(s): M54.16 - RADICULOPATHY, LUMBAR REGION (3) Clavicle fracture Code(s): S42.009A - FRACTURE OF UNSP PART OF UNSP CLAVICLE, INIT FOR CLOS FX Qualifiers: Encounter type: subsequent encounter Clavicle location: lateral end Fracture type: closed Fracture alignment: displaced Laterality: left (4) Hyperlipidemia Code(s): E78.5 - HYPERLIPIDEMIA, UNSPECIFIED Qualifiers: Hyperlipidemia type: pure hypercholesterolemia Qualified Code(s): E78.00 - Pure hypercholesterolemia, unspecified; E78.0 - Pure hypercholesterolemia (5) Hypothyroid Code(s): E03.9 - HYPOTHYROIDISM, UNSPECIFIED Qualifiers: Hypothyroidism type: unspecified Qualified Code(s): E03.9 - Hypothyroidism , unspecified (6) Mitral valve regurgitation Code(s): I34.0 - NONRHEUMATIC MITRAL (VALVE) INSUFFICIENCY Qualifiers: Cardiac valve disease etiology: nonrheumatic Qualified Code(s): I34.0 - Nonrheumatic mitral (valve) insufficiency (7) S/P TAVR (transcatheter aortic valve replacement) Code(s): Z95.2 - PRESENCE OF PROSTHETIC HEART VALVE Assessment/Plan Elevated D-dimer Recent fall with Left Clavicular Fracture L5-S1 Spinal Stenosis/Radiculopathy Aortic Stenosis s/p TAVR h/o bio MVR COPD HTN Hypercholesterolemia Hypothyroidism HONEY - pt without new symptoms of chest pain and palpitations, not tachycardic, denies shortness of breath and is saturating 97% on room air so clinically less likely significant venous thromboembolism - pt with recent trauma and significant bruising which may explain her elevated d-dimer - clinically low suspicion but will order upper extremity dopplers to r/o DVT - continue inhaled bronchodilators as needed - Symbicort while inpatient, she takes Advair as outpt - DVT prophylaxis Thank you for this consult Festus Orlando MD
[2018-04-04] MEDS: BUDESONIDE/FORMETEROL FUMARATE 80/4.5 mcg INHALER IH SCH ×2 (10:54→22:11)
[2018-04-04] MEDS: CALCIUM 250MG/VIT-D 125 UNITS 1 COMBO TABLET PO SCH (10:55)
[2018-04-04] MEDS: OMEGA-3 ACID ETHYL ESTERS (FATTY-ACIDS) 1 GM CAPSULE (FP) PO SCH ×2 (10:55→22:12)
[2018-04-04] MEDS: HEPARIN NA (PORCINE) 5,000 UNITS/ML 1ML VIAL SQ SCH ×2 (10:56→22:14)
[2018-04-04] MEDS: FERROUS SO4 325 MG TABLET (FP) PO SCH (10:56)
[2018-04-04] MEDS: ASCORBIC ACID 500 MG TABLET (FP) PO SCH (10:56)
[2018-04-04] MEDS: RANITIDINE HCL 150 MG TABLET (FP) PO SCH (10:56)
[2018-04-04] MEDS: CHOLECALCIFEROL (VITAMIN D3) 1,000 UNIT TABLET (FP) PO SCH (10:56)
[2018-04-04] MEDS: CARVEDILOL 6.25 MG TABLET (FP) PO SCH ×2 (10:56→21:58)
[2018-04-04] MEDS: ASPIRIN COATED 81 MG TABLET.EC PO SCH (10:56)
[2018-04-04] MEDS ORDERED: SODIUM CHLORIDE 500 ML IV STA (12:04)
--- NOTE | 2018-04-04 13:17 | CONSULT ---
Consult Consult Specialty:: PM&R Reason for Consultation:: EMG LLE - History of Present Illness History of Present Illness: This is an 82 year old woman with a medical history of CHF, HTN, s/p TAVR 2017, mitral insufficiency, HLD, COPD, sleep apnea, diverticulosis, hiatal hernia, multiple colon adenomas, fatty liver, cholelithiasis, renal stones, anemia, OA, DM, diabetic retinopathy, hypothyroidism, who presented to the ED with worsening function at home following a clavicular fx 1 week [employer]. 08/14 she noticed a new L foot drop which began without inciting event. Since her admission she had been seen by multiple consultants including Ortho for the L shoulder (sling was provided), Neurosurgery for L foot drop who recommended BECKY versus lumbar surgery for L L5 impingement, Cards for clearance (who recommends BECKY over surgery), Pulm for elevated d-dimer, and Neuro for L foot drop who recommended EMG, L AFO and PT. Physiatry is requested to perform EMG LLE, peroneal neuropathy versus L L5 radiculopathy. - Past Medical History Cardio/Vascular: Yes: Aortic Stenosis, CHF, HTN, Hyperlipdemia, 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) Pulmonary: Yes: COPD, Sleep Apnea Gastrointestinal: Yes: Diverticulosis, Hiatal Hernia, Other (multiple colon adenomas removed 2014, 2015, capsule endoscopy Dr Olvera 2016 unrevealing) Hepatobiliary: Yes: Cholelithiasis, Other (fatty liver) Renal/: Yes: Renal Calculi Musculoskeletal: Yes: Osteoarthritis Endocrine: Yes: Diabetes Mellitus (with retinopathy), Hypothyroidism Additional Medical History: Legally blind with diabetic retinopathy, macular degeneration and glaucoma - Past Surgical History Past Surgical History: Yes: Appendectomy (ruptured appendix), Cataract Removal, Colonoscopy, Hernia Repair, Tonsillectomy, Upper Endoscopy, Valve Replacement (s /p TAVR 2017, MVR 10/2017) - Alcohol/Substance Use Hx Alcohol Use: No History of Substance Use: reports: None - Smoking History Smoking history: Former smoker Have you smoked in the past 12 months: No Aproximately how many cigarettes per day: 0 If you are a former smoker, when did you quit?: 1972 - Social History ADL: Independent (lives alone in apartment with 15 steps to enter, has SC and walker) History of Recent Travel: No Home Medications - Allergies Allergies/Adverse Reactions: Allergies Allergy/AdvReac Type Severity Reaction Status Date / Time quinine [Quinine] Allergy Mild Rash Verified 04/02/18 15:11 Sulfa (Sulfonamide Allergy Mild Rash Verified 04/02/18 15:11 Antibiotics) [Sulfa(Sulfonamide Antibiotics)] - Home Medications Home Medications: Ambulatory Orders Sitagliptin Phosphate [Januvia] 100 mg PO DAILY 12/18/14 Atorvastatin Ca [Lipitor] 10 mg PO HS #1 tablet 12/22/14 Cholecalciferol (Vitamin D3) [Vitamin D3 -] 1,000 unit PO DAILY 03/10/16 Latanoprost 0.005% Eye Drops [Xalatan 0.005% Eye Drops -] 1 drop OU HS 07/25/16 Ascorbic Acid [Vitamin C] 500 mg PO DAILY 05/10/17 Levothyroxine [Synthroid -] 0.025 mcg PO ACBK 05/10/17 Sertraline HCl [Zoloft] 25 mg PO HS 05/10/17 Carvedilol [Coreg -] 6.25 mg PO BID #60 tablet 05/13/17 Calcium 250Mg/Vit-D 125 Units [Oscal 250 mg+D -] 1 combo PO DAILY 10/24/17 Ferrous Sulfate 325 mg PO DAILY 10/24/17 Metformin HCl [Glucophage] 500 mg PO BID 10/24/17 [place]-3/Dha/Epa/Fish Oil [Fish Oil [place]-3 EC 1,200 mg] 1 each PO DAILY Albuterol Sulfate 0.5% [Ventolin 0.5% Nebulizing Soln. -] 5 mg IH Q6H PRN Aspirin [Aspirin EC] 81 mg PO DAILY 04/03/18 Fluticasone/Vilanterol [Breo Ellipta 100-25 Mcg INH] 1 mcg IH DAILY 04/03/18 Ranitidine [Zantac -] 150 mg PO DAILY 04/03/18 Family Disease History - Family Disease History Family Disease History: Heart Disease: Mother ( 84 [place], had polio), Son ( multiple eye surgeries), Other: Father (emphysema, 64 of [place]) Review of Systems Findings/Remarks: denies fevers, changes in vision/ hearing/ mood, SOB, nausea, vomiting, dysuria , numbness notes chills, chest pain (attributed to heartburn), abdominal pain and diarrhea x2 today, LBP, L foot weakness and possible L foot paresthesias Physical Exam Vital Signs: Vital Signs Temperature 97.8 F 04/04/18 10:00 Pulse Rate 72 04/04/18 12:02 Respiratory Rate 20 04/04/18 12:02 Blood Pressure 87/48 L 04/04/18 12:02 O2 Sat by Pulse Oximetry (%) 96 04/04/18 09:00 Musculoskeletal: Yes: Other (General: calm elderly F lying in bed NAD but fatigued N/M: 4+/5 R KE/ DF/ EHL, 0-1/5 L DF/ EHL, 4+/5 L KE Extremities: no BLE pitting edema, no B calf tenderness, +B feet cool) Labs: CBC, BMP 04/04/18 07:10 04/04/18 07:10 Imaging - Results Cat Scan: Report Reviewed (CT head 04/02/18 shows no acute pathology CT cervical spine 04/02/18 shows no acute pathology CT lumbar spine 04/02/18 shows chronic DDD L5-S1 with vacuum phenomena, moderate facet arthropathy, minimal grade 1 anterior spondylolisthesis, and L neural foraminal narrowing) Ultrasound: Report Reviewed (04/02/18 BLE doppler US negative DVT) Assessment/Plan Electrodiagnostics were performed, please see print-out for further details. Impression: 1) Deficits mobility/ ADLs 2) Deconditioning 3) Gait abnormality 4) L clavicular fx 5) L peroneal neuropathy 6) Axonal sensorimotor peripheral neuropathy without definite evidence of L L5 radiculopathy 7) LBP with lumbar DDD/ DJD 8) hx CHF, HTN, s/p TAVR 2017, mitral insufficiency, HLD 9) hx COPD, sleep apnea 10) hx diverticulosis, hiatal hernia, multiple colon adenomas 11) hx fatty liver, cholelithiasis 12) hx renal stones 13) Anemia 14) hx OA 15) DM with diabetic retinopathy 16) hx hypothyroidism 17) Overweight 18) Up to date pneumovax, no flu shot this year Recommendations: 1) PT for stretching strengthening functional mobility and endurance 2) Falls, safety precautions 3) Cardiopulmonary precautions 4) Diabetic precautions 5) NWB LUE, sling to LUE 6) Trial L AFO- as outpt can have custom molded- AFO fabricated 7) Neuropathy is c/w both chronic liver disease and hypothyroidism, cannot rule out diabetic as well 8) Agree with BECKY for LBP 9) Continue medical management 10) Nutrition consult for overweight 11) Discharge planning: she would benefit from inpatient rehabilitation once medically stable Thank you for this referral.
--- NOTE | 2018-04-04 13:21 | PN ---
Progress Note, Physician Chief Complaint: Pt lying in bed. reports not feeling well. report diarrhea, lack of appetite. also has not been eating/drinking because "makes me feel sick". reports back pain is controlled. denies any chest pain, sob - Current Medication List Current Medications: Active Medications Acetaminophen (Tylenol -) 650 mg PO Q6H PRN PRN Reason: PAIN LEVEL 1-5 Last Admin: 04/04/18 06:43 Dose: 650 mg Albuterol Sulfate (Ventolin 0.5% -) 1 amp NEB Q6H PRN PRN Reason: SHORTNESS OF BREATH Ascorbic Acid (Vitamin C -) 500 mg PO DAILY [facility] Last Admin: 04/04/18 10:56 Dose: 500 mg Aspirin (Ecotrin -) 81 mg PO DAILY [facility] Last Admin: 04/04/18 10:56 Dose: 81 mg Atorvastatin Calcium (Lipitor -) 10 mg PO HS [facility] Last Admin: 04/03/18 22:56 Dose: 10 mg Budesonide/Formoterol Fumarate (Symbicort 80/4.5mcg -) 2 puff IH BID [facility] Last Admin: 04/04/18 10:54 Dose: 2 puff Calcium/Vitamin D (Oscal 250 Mg+D -) 1 tab PO DAILY [facility] Last Admin: 04/04/18 10:55 Dose: 1 tab Carvedilol (Coreg -) 6.25 mg PO BID [facility] Last Admin: 04/04/18 10:56 Dose: 6.25 mg Cholecalciferol (Vitamin D3 -) 1,000 unit PO DAILY [facility] Last Admin: 04/04/18 10:56 Dose: 1,000 unit Emollient Ointment (Aquaphor -) 1 applic TP BID PRN PRN Reason: DRY SKIN Ferrous Sulfate (Feosol -) 325 mg PO DAILY [facility] Last Admin: 04/04/18 10:56 Dose: 325 mg Heparin Sodium (Porcine) (Heparin -) 5,000 unit SQ BID [facility] Last Admin: 04/04/18 10:56 Dose: 5,000 unit Latanoprost (Xalatan 0.005% Eye Drops -) 1 drop OU HS [facility] Last Admin: 04/03/18 22:57 Dose: 1 drop Levothyroxine Sodium (Synthroid -) 25 mcg PO 0700 [facility] Last Admin: 04/04/18 06:42 Dose: 25 mcg Metformin HCl (Glucophage -) 500 mg PO BIDAC [facility] Pnrgk-9-Mncc Ethyl Esters (Lovaza -) 2 gm PO BID [facility] Last Admin: 04/04/18 10:55 Dose: 2 gm Ranitidine HCl (Zantac -) 150 mg PO DAILY [facility] Last Admin: 04/04/18 10:56 Dose: 150 mg Sertraline HCl (Zoloft -) 25 mg PO HS [facility] Last Admin: 04/03/18 22:57 Dose: 25 mg Sitagliptin Phosphate (Januvia -) 100 mg PO 0700 [facility] Last Admin: 04/04/18 06:42 Dose: 100 mg - Objective Vital Signs: Vital Signs Temperature 97.8 F 04/04/18 10:00 Pulse Rate 72 04/04/18 12:02 Respiratory Rate 20 04/04/18 12:02 Blood Pressure 87/48 L 04/04/18 12:02 O2 Sat by Pulse Oximetry (%) 96 04/04/18 09:00 Constitutional: Yes: Well Nourished, No Distress, Calm Cardiovascular: Yes: Regular Rate and Rhythm Respiratory: Yes: WNL, Regular, CTA Bilaterally. No: Accessory Muscle Use, Rhonchi, SOB, Tachypnea, Wheezes Gastrointestinal: Yes: Normal Bowel Sounds, Soft, Tenderness (ruq/rlq). No: Distention, Vomiting Genitourinary: Yes: WNL Musculoskeletal: Yes: Back Pain Edema: No Neurological: Yes: WNL, Alert, Oriented Psychiatric: Yes: WNL, Alert, Oriented Labs: CBC, BMP 04/04/18 07:10 04/04/18 07:10 Problem List - Problems (1) Clostridium difficile colitis Code(s): A04.72 - ENTEROCOLITIS D/T CLOSTRIDIUM DIFFICILE, NOT SPCF RECUR (2) Chest pain Code(s): R07.9 - CHEST PAIN, UNSPECIFIED (3) Nausea Code(s): R11.0 - NAUSEA Assessment/Plan (1) Foot drop, left Assessment/Plan: acute CT L/S- grade 1 degenerative anterior spondylolisthesis of L5 on S1. Left neural foraminal narrowing. EMG without radiculopathy pt ambulated 30 ft- would benefit from SNF cardiology consult appreciated- recommend epidural steroid injection,opposed to surgical intervention nsgy/neurology consult appreciated Code(s): M21.372 - FOOT DROP, LEFT FOOT (2) Spondylolisthesis at L5-S1 level Assessment/Plan: as above Code(s): M43.17 - SPONDYLOLISTHESIS, LUMBOSACRAL REGION (3) Weakness Assessment/Plan: 2/2 mechanical fall , poor po intake head CT neg as above Code(s): R53.1 - WEAKNESS (4) Clavicle fracture Assessment/Plan: stable ortho evaluated- no surgical intervention continue sling for support adequate pain control Code(s): S42.009A - FRACTURE OF UNSP PART OF UNSP CLAVICLE, INIT FOR CLOS FX Qualifiers: Encounter type: subsequent encounter Clavicle location: lateral end Fracture type: closed Fracture alignment: displaced Laterality: left (5) Osteoarthritis Assessment/Plan: continue vitamin D Code(s): M19.90 - UNSPECIFIED OSTEOARTHRITIS, UNSPECIFIED SITE Qualifiers: Osteoarthritis location: multiple joints Osteoarthritis type: primary Qualified Code(s): M15.0 - Primary generalized (osteo)arthritis (6) Elevated d-dimer Assessment/Plan: ddimer level 1731 b/l le duplex neg for dvt b/l ue duplex pending low suspicion of pe pulm consult appreciated Code(s): R79.89 - OTHER SPECIFIED ABNORMAL FINDINGS OF BLOOD CHEMISTRY (7) S/P TAVR (transcatheter aortic valve replacement) Assessment/Plan: stable, s/p tavr 08/13 Code(s): Z95.2 - PRESENCE OF PROSTHETIC HEART VALVE (8) S/P mitral valve replacement Assessment/Plan: stable, s/p bioprosthetic mvr 11/11 Code(s): Z95.2 - PRESENCE OF PROSTHETIC HEART VALVE (9) HTN (hypertension) Assessment/Plan: controlled continue carvedilol Code(s): I10 - ESSENTIAL (PRIMARY) HYPERTENSION Qualifiers: Hypertension type: essential hypertension Qualified Code(s): I10 - Essential (primary) hypertension (10) Hypothyroid Assessment/Plan: chronic continue synthroid Code(s): E03.9 - HYPOTHYROIDISM, UNSPECIFIED Qualifiers: Hypothyroidism type: unspecified Qualified Code(s): E03.9 - Hypothyroidism , unspecified (11) Hyperlipidemia Assessment/Plan: Controlled Continue lipitor, lovaza continue lifestyle modifications Code(s): E78.5 - HYPERLIPIDEMIA, UNSPECIFIED (12) GERD (gastroesophageal reflux disease) Assessment/Plan: Stable Continue zantac Code(s): K21.9 - GASTRO-ESOPHAGEAL REFLUX DISEASE WITHOUT ESOPHAGITIS Qualifiers: Esophagitis presence: without esophagitis Qualified Code(s): K21.9 - Gastro -esophageal reflux disease without esophagitis (13) Diabetes Assessment/Plan: controlled continue metformin/januvia Code(s): E11.9 - TYPE 2 DIABETES MELLITUS WITHOUT COMPLICATIONS Qualifiers: Diabetes mellitus type: type 2 Diabetes mellitus complication status: with ophthalmic complications Diabetes mellitus complication detail: with diabetic retinopathy Diabetes mellitus terminal operations manager insulin use: without terminal operations manager use (14) CAD (coronary artery disease) Assessment/Plan: Stable continue asa/statin Code(s): I25.10 - ATHSCL HEART DISEASE OF [place] CORONARY ARTERY W/O ANG PCTRS Qualifiers: Coronary Disease-Associated Artery/Lesion type: [place] artery [place] vs. transplanted heart: [place] heart Associated angina: without angina Qualified Code(s): I25.10 - Atherosclerotic heart disease of [place] coronary artery without angina pectoris (15) COPD (chronic obstructive pulmonary disease) Assessment/Plan: chronic continue breo, albuterol Code(s): J44.9 - CHRONIC OBSTRUCTIVE PULMONARY DISEASE, UNSPECIFIED Qualifiers: COPD type: unspecified COPD Qualified Code(s): J44.9 - Chronic obstructive pulmonary disease, unspecified (16) Hypotension Assessment/Plan: 2/2 poor po intake, gi losses ns bolus 500ml x 1 orthostatics ordered IVF started monitor Code(s): I95.9 - HYPOTENSION, UNSPECIFIED (17) Clostridium difficile colitis Assessment/Plan: cdiff antigen positive po vanco started monitor Code(s): A04.72 - ENTEROCOLITIS D/T CLOSTRIDIUM DIFFICILE, NOT SPCF RECUR (18) Chest pain Assessment/Plan: pt reports episode of non radiating substernal chest pain resolved upon my assessment, does not suspect acs troponin neg , ekg ordered cardiology following Code(s): R07.9 - CHEST PAIN, UNSPECIFIED (19) Nausea Assessment/Plan: mild nausea with poor po intake rlq/ruq ttp suspect 2/2 cdiff colitis Abd/pelvic CT ordered full liquids diet monitor Code(s): R11.0 - NAUSEA Dispo: SNF
[2018-04-04] MEDS ORDERED: MINERAL OIL/PET HY-PHL TOPICAL OINTMENT 454 GM JAR TP PRN (14:00)
--- NOTE | 2018-04-04 14:22 | PN ---
Progress Note, Physician Chief Complaint: Events noted Generalized weakness History of Present Illness: Patient was seen and examined. Awake and alert. Chart was reviewed Denies chest pain, SOB or palpitations - Current Medication List Current Medications: Active Medications Acetaminophen (Tylenol -) 650 mg PO Q6H PRN PRN Reason: PAIN LEVEL 1-5 Last Admin: 04/04/18 06:43 Dose: 650 mg Albuterol Sulfate (Ventolin 0.5% -) 1 amp NEB Q6H PRN PRN Reason: SHORTNESS OF BREATH Ascorbic Acid (Vitamin C -) 500 mg PO DAILY [facility] Last Admin: 04/04/18 10:56 Dose: 500 mg Aspirin (Ecotrin -) 81 mg PO DAILY [facility] Last Admin: 04/04/18 10:56 Dose: 81 mg Atorvastatin Calcium (Lipitor -) 10 mg PO HS [facility] Last Admin: 04/03/18 22:56 Dose: 10 mg Budesonide/Formoterol Fumarate (Symbicort 80/4.5mcg -) 2 puff IH BID [facility] Last Admin: 04/04/18 10:54 Dose: 2 puff Calcium/Vitamin D (Oscal 250 Mg+D -) 1 tab PO DAILY [facility] Last Admin: 04/04/18 10:55 Dose: 1 tab Carvedilol (Coreg -) 6.25 mg PO BID [facility] Last Admin: 04/04/18 10:56 Dose: 6.25 mg Cholecalciferol (Vitamin D3 -) 1,000 unit PO DAILY [facility] Last Admin: 04/04/18 10:56 Dose: 1,000 unit Emollient Ointment (Aquaphor -) 1 applic TP BID PRN PRN Reason: DRY SKIN Ferrous Sulfate (Feosol -) 325 mg PO DAILY [facility] Last Admin: 04/04/18 10:56 Dose: 325 mg Heparin Sodium (Porcine) (Heparin -) 5,000 unit SQ BID [facility] Last Admin: 04/04/18 10:56 Dose: 5,000 unit Latanoprost (Xalatan 0.005% Eye Drops -) 1 drop OU HS [facility] Last Admin: 04/03/18 22:57 Dose: 1 drop Levothyroxine Sodium (Synthroid -) 25 mcg PO 0700 [facility] Last Admin: 04/04/18 06:42 Dose: 25 mcg Metformin HCl (Glucophage -) 500 mg PO BIDAC [facility] Flpcs-3-Syku Ethyl Esters (Lovaza -) 2 gm PO BID [facility] Last Admin: 04/04/18 10:55 Dose: 2 gm Ranitidine HCl (Zantac -) 150 mg PO DAILY [facility] Last Admin: 04/04/18 10:56 Dose: 150 mg Sertraline HCl (Zoloft -) 25 mg PO HS [facility] Last Admin: 04/03/18 22:57 Dose: 25 mg Sitagliptin Phosphate (Januvia -) 100 mg PO 0700 [facility] Last Admin: 04/04/18 06:42 Dose: 100 mg - Objective Vital Signs: Vital Signs Temperature 97.8 F 04/04/18 10:00 Pulse Rate 72 04/04/18 12:02 Respiratory Rate 20 04/04/18 12:02 Blood Pressure 87/48 L 04/04/18 12:02 O2 Sat by Pulse Oximetry (%) 96 04/04/18 09:00 Neck: Yes: Supple Cardiovascular: Yes: Regular Rate and Rhythm, Murmur (SM), S1, S2 Respiratory: Yes: Diminished Gastrointestinal: Yes: Normal Bowel Sounds, Soft. No: Tenderness Edema: No Labs: CBC, BMP 04/04/18 07:10 04/04/18 07:10 Problem List - Problems (1) Failure to thrive Code(s): [id number] - Qualifiers: Failure to thrive age range: in adult Qualified Code(s): R62.7 - Adult failure to thrive (2) Hypotension Code(s): I95.9 - HYPOTENSION, UNSPECIFIED (3) Lumbar back pain with radiculopathy affecting left lower extremity Code(s): M54.16 - RADICULOPATHY, LUMBAR REGION (4) S/P mitral valve replacement Code(s): Z95.2 - PRESENCE OF PROSTHETIC HEART VALVE (5) Spondylolisthesis at L5-S1 level Code(s): M43.17 - SPONDYLOLISTHESIS, LUMBOSACRAL REGION (6) Anemia Code(s): D64.9 - ANEMIA, UNSPECIFIED Qualifiers: Anemia type: iron deficiency Iron deficiency anemia type: chronic blood loss Qualified Code(s): D50.0 - Iron deficiency anemia secondary to blood loss (chronic) (7) Reactive airway disease without complication Code(s): J45.909 - UNSPECIFIED ASTHMA, UNCOMPLICATED Qualifiers: Asthma severity: mild Asthma persistence: intermittent Qualified Code(s) : J45.20 - Mild intermittent asthma, uncomplicated (8) T2DM (type 2 diabetes mellitus) Code(s): E11.9 - TYPE 2 DIABETES MELLITUS WITHOUT COMPLICATIONS Qualifiers: Diabetes mellitus termite exterminator insulin use: without mcfp use (9) Aortic stenosis Code(s): I35.0 - NONRHEUMATIC AORTIC (VALVE) STENOSIS Qualifiers: Cardiac valve disease etiology: nonrheumatic Qualified Code(s): I35.0 - Nonrheumatic aortic (valve) stenosis (10) CAD (coronary artery disease) Code(s): I25.10 - ATHSCL HEART DISEASE OF [place] CORONARY ARTERY W/O ANG PCTRS Qualifiers: Coronary Disease-Associated Artery/Lesion type: [place] artery [place] vs. transplanted heart: [place] heart Associated angina: without angina Qualified Code(s): I25.10 - Atherosclerotic heart disease of [place] coronary artery without angina pectoris (11) COPD (chronic obstructive pulmonary disease) Code(s): J44.9 - CHRONIC OBSTRUCTIVE PULMONARY DISEASE, UNSPECIFIED Qualifiers: COPD type: unspecified COPD Qualified Code(s): J44.9 - Chronic obstructive pulmonary disease, unspecified (12) GERD (gastroesophageal reflux disease) Code(s): K21.9 - GASTRO-ESOPHAGEAL REFLUX DISEASE WITHOUT ESOPHAGITIS Qualifiers: Esophagitis presence: without esophagitis Qualified Code(s): K21.9 - Gastro -esophageal reflux disease without esophagitis (13) HTN (hypertension) Code(s): I10 - ESSENTIAL (PRIMARY) HYPERTENSION Qualifiers: Hypertension type: essential hypertension Qualified Code(s): I10 - Essential (primary) hypertension (14) Hyperlipidemia Code(s): E78.5 - HYPERLIPIDEMIA, UNSPECIFIED Qualifiers: Hyperlipidemia type: pure hypercholesterolemia Qualified Code(s): E78.00 - Pure hypercholesterolemia, unspecified; E78.0 - Pure hypercholesterolemia (15) Hypothyroid Code(s): E03.9 - HYPOTHYROIDISM, UNSPECIFIED Qualifiers: Hypothyroidism type: unspecified Qualified Code(s): E03.9 - Hypothyroidism , unspecified (16) Mitral valve regurgitation Code(s): I34.0 - NONRHEUMATIC MITRAL (VALVE) INSUFFICIENCY Qualifiers: Cardiac valve disease etiology: nonrheumatic Qualified Code(s): I34.0 - Nonrheumatic mitral (valve) insufficiency (17) S/P TAVR (transcatheter aortic valve replacement) Code(s): Z95.2 - PRESENCE OF PROSTHETIC HEART VALVE (18) Acute on chronic diastolic (congestive) heart failure Code(s): I50.33 - ACUTE ON CHRONIC DIASTOLIC (CONGESTIVE) HEART FAILURE Assessment/Plan 1. L5-S1 spinal stenosis and radiculopathy 2. Severe aortic valve disease () s/p TAVR 3. Post mitral valve bioprosthetic replacement, LV myomectomy and ALFREDO closure with Atriclip 10/2017 for ruptured mitral chordae with mod-severe mitral valve regurgitation 4. Hypertension 5. Hypercholesterolemia 6. COPD 7. Sleep apnea 8. Anemia 9. Diabetes mellitus 10. Hypothyroidism PLAN: 1. Continue present management 2. Continue Carvedilol, ASA and Lipitor 3. EMG 4. Monitor BP closely. Fluid as needed Further plans are to follow Abiodun Cabral MD
[2018-04-04] MEDS: VANCOMYCIN 250 MG/5 ML ORAL SOLUTION PO SCH ×2 (16:19→17:45)
[2018-04-04] MEDS: SODIUM CHLORIDE 1,000 ML IV SCH (16:20)
--- NOTE | 2018-04-04 16:47 | PN ---
Progress Note (short form) - Note Progress Note: Patient feeling better although foot drop persists. Cardiology input appreciated. Although surgical decompression represents standard treatment for acute foot drop, and was offered to the patient, the patient declines surgery at this time which may be reasonable given her overall medical condition. Dr. Ricky Chavira may be able to offer BECKY to this patient.
[2018-04-04] MEDS: ATORVASTATIN CA 10 MG TABLET (FP) PO SCH (21:59)
[2018-04-04] MEDS: SERTRALINE HCL 25 MG TABLET (FP) PO SCH (22:10)
[2018-04-04] MEDS: LATANOPROST 0.005% OPHTH SOLN 2.5ML BOTTLE OU SCH (22:13)
[2018-04-05] MEDS: sitaGLIPtin PHOSPHATE 50 MG TABLET PO SCH (07:06)
[2018-04-05] MEDS: LEVOTHYROXINE NA 25 MCG TABLET (FP) PO SCH (07:06)
[2018-04-05] MEDS: metFORMIN HCL 500 MG TABLET (FP) PO SCH ×2 (07:06→17:16)
[2018-04-05] MEDS: VANCOMYCIN 250 MG/5 ML ORAL SOLUTION PO SCH ×5 (07:07→23:30)
[2018-04-05] MEDS ORDERED: INSULIN (NOVOLOG) ASPART 100 UNITS/ML 10ML VIAL ONE (07:17)
[2018-04-05 07:35] LABS: BASO % 0.7 % (0-2.0); EOS % 2.3 % (0-4.5); HEMATOCRIT 32.9 % (32.4-45.2); LYMPH % 22.3 % (8-40); MCH 28.8 pg (25.7-33.7); MCHC 33.3 g/dl (32.0-36.0); MEAN CELL VOLUME 86.5 fl (80-96); MEAN PLT VOLUME 7.9 fl (7.5-11.1); MONO % 11.2 % (3.8-10.2); NEUT % 63.5 % (42.8-82.8); PLATELET COUNT 275 K/MM3 (134-434); RBC 3.81 M/mm3 (3.60-5.2); RDW 14.7 % (11.6-15.6); WHITE BLOOD COUNT 7.2 K/mm3 (4.0-10.0)
[2018-04-05 08:06] LABS: ALK PHOS 73 U/L (45-117); ANION GAP 5 MMOL/L (8-16); BILIRUBIN,TOTAL 0.5 mg/dL (0.2-1); BLOOD UREA NITROGEN 17 mg/dL (7-18); CALCIUM 8.9 mg/dL (8.5-10.1); CHLORIDE 104 mmol/L (98-107); CO2 28 mmol/L (21-32); CREATININE 0.6 mg/dL (0.55-1.3); GLUCOSE,RANDOM 105 mg/dL (74-106); MAGNESIUM 2.3 mg/dL (1.8-2.4); POTASSIUM 4.2 mmol/L (3.5-5.1); SGOT/AST 16 U/L (15-37); SGPT/ALT 13 U/L (13-61); SODIUM 137 mmol/L (136-145); TOT PROT 6.6 g/dl (6.4-8.2)
--- NOTE | 2018-04-05 08:46 | PN ---
Progress Note (short form) - Note Progress Note: Neurology History of Present Illness History of Present Illness: 82 year old female who comes in with worsened functional capability at home. Pt had a mechanical fall 1 week ago resulting in left clavicular fx, she was evaluated in ED and discharged home. Since being at home, pt reported inability to perform ADLs independently due to increased pain and weakness. One weke prior to admission she reported noticing left foot drop and difficulty ambulating. She reported almost falling at home due to above symptoms. Denied any falls, head trauma. Pt was unable to follow up with ortho as outpatient because she was not able to leave home. She was admitted to [facility] for further evaluation and management. Although right foot with full strength to dorsiflexion, L foot is limited. 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 Moderate facet joint arthropathy. Minimal grade 1 degenerative anterior spondylolisthesis of L5 on S1. Left neural foraminal narrowing. NSGY consulted, note reviewed, recommended considering further medical mgmt. Emg reviewed and discussed, consistent with peroneal nerve palsy. Recommend brace, physical therapy. May be having BECKY for back pain. NSGY note reviewed. - Allergies Allergies/Adverse Reactions: Allergies Allergy/AdvReac Type Severity Reaction Status Date / Time quinine [Quinine] Allergy Mild Rash Verified 04/02/18 15:11 Sulfa (Sulfonamide Allergy Mild Rash Verified 04/02/18 15:11 Antibiotics) [Sulfa(Sulfonamide Antibiotics)] Active Medications Acetaminophen (Tylenol -) 650 mg PO Q6H PRN PRN Reason: PAIN LEVEL 1-5 Last Admin: 04/04/18 06:43 Dose: 650 mg Albuterol Sulfate (Ventolin 0.5% -) 1 amp NEB Q6H PRN PRN Reason: SHORTNESS OF BREATH Ascorbic Acid (Vitamin C -) 500 mg PO DAILY [facility] Last Admin: 04/04/18 10:56 Dose: 500 mg Aspirin (Ecotrin -) 81 mg PO DAILY [facility] Last Admin: 04/04/18 10:56 Dose: 81 mg Atorvastatin Calcium (Lipitor -) 10 mg PO HS [facility] Last Admin: 04/04/18 21:59 Dose: 10 mg Budesonide/Formoterol Fumarate (Symbicort 80/4.5mcg -) 2 puff IH BID [facility] Last Admin: 04/04/18 22:11 Dose: 2 puff Calcium/Vitamin D (Oscal 250 Mg+D -) 1 tab PO DAILY [facility] Last Admin: 04/04/18 10:55 Dose: 1 tab Carvedilol (Coreg -) 6.25 mg PO BID [facility] Last Admin: 04/04/18 21:58 Dose: 6.25 mg Cholecalciferol (Vitamin D3 -) 1,000 unit PO DAILY [facility] Last Admin: 04/04/18 10:56 Dose: 1,000 unit Emollient Ointment (Aquaphor -) 1 applic TP BID PRN PRN Reason: DRY SKIN Ferrous Sulfate (Feosol -) 325 mg PO DAILY [facility] Last Admin: 04/04/18 10:56 Dose: 325 mg Heparin Sodium (Porcine) (Heparin -) 5,000 unit SQ BID [facility] Last Admin: 04/04/18 22:14 Dose: 5,000 unit Sodium Chloride (Normal Saline -) 1,000 mls @ 42 mls/hr IV ASDIR [facility] Last Admin: 04/04/18 16:20 Dose: 42 mls/hr Latanoprost (Xalatan 0.005% Eye Drops -) 1 drop OU HS [facility] Last Admin: 04/04/18 22:13 Dose: 1 drop Levothyroxine Sodium (Synthroid -) 25 mcg PO 0700 [facility] Last Admin: 04/05/18 07:06 Dose: 25 mcg Metformin HCl (Glucophage -) 500 mg PO BIDAC [facility] Last Admin: 04/05/18 07:06 Dose: 500 mg Yreth-1-Waoj Ethyl Esters (Lovaza -) 2 gm PO BID [facility] Last Admin: 04/04/18 22:12 Dose: 2 gm Ranitidine HCl (Zantac -) 150 mg PO DAILY [facility] Last Admin: 04/04/18 10:56 Dose: 150 mg Sertraline HCl (Zoloft -) 25 mg PO HS [facility] Last Admin: 04/04/18 22:10 Dose: 25 mg Sitagliptin Phosphate (Januvia -) 100 mg PO 0700 [facility] Last Admin: 04/05/18 07:06 Dose: 100 mg Vancomycin HCl (Vancomycin Oral Solution) 125 mg PO Q6HPO [facility] Last Admin: 04/05/18 07:07 Dose: 125 mg Physical Examination Vital Signs Period Temp Pulse Resp BP Sys/Jose Pulse Ox Last 24 Hr 97.3 F-98.0 F 72-91 18-20 87-138/48-73 96-98 Gen: Awake, alert, responds to questions Card: RRR, nml S1,S2 Resp: Normal symmetric effort, lungs clear to auscultation Abdomen: Soft, nontender, bowel sounds active Musculoskeletal: Adequate range of motion without significant deformity Head atraumatic and normocephalic CN: PERRL, EOMI intact, no apparent facial droop, no abnormalities in facial sensation, palate elevates, uvula and tongue midline Motor: L foot dorsiflexion limited 1+/5, otherwise grossly 5-/5 throughout Sensory: Intact to Temperature, light touch Coordination: Intact on mywaum-nvqc-sevlja testing Gait: deferred CBCD WBC 7.2 K/mm3 (4.0-10.0) 04/05/18 06:30 RBC 3.81 M/mm3 (3.60-5.2) 04/05/18 06:30 Hgb 11.0 GM/dL (10.7-15.3) 04/05/18 06:30 Hct 32.9 % (32.4-45.2) 04/05/18 06:30 MCV 86.5 fl (80-96) 04/05/18 06:30 MCHC 33.3 g/dl (32.0-36.0) 04/05/18 06:30 RDW 14.7 % (11.6-15.6) 04/05/18 06:30 Plt Count 275 K/MM3 (134-434) 04/05/18 06:30 MPV 7.9 fl (7.5-11.1) 04/05/18 06:30 CMP Sodium 137 mmol/L (136-145) 04/05/18 06:30 Potassium 4.2 mmol/L (3.5-5.1) 04/05/18 06:30 Chloride 104 mmol/L (98-107) 04/05/18 06:30 Carbon Dioxide 28 mmol/L (21-32) 04/05/18 06:30 Anion Gap 5 MMOL/L (8-16) L 04/05/18 06:30 BUN 17 mg/dL (7-18) 04/05/18 06:30 Creatinine 0.6 mg/dL (0.55-1.3) 04/05/18 06:30 Creat Clearance w eGFR > 60 (>60) 04/05/18 06:30 Random Glucose 105 mg/dL (74-106) 04/05/18 06:30 Calcium 8.9 mg/dL (8.5-10.1) 04/05/18 06:30 Total Bilirubin 0.5 mg/dL (0.2-1) 04/05/18 06:30 AST 16 U/L (15-37) 04/05/18 06:30 ALT 13 U/L (13-61) 04/05/18 06:30 Alkaline Phosphatase 73 U/L (45-117) 04/05/18 06:30 Total Protein 6.6 g/dl (6.4-8.2) 04/05/18 06:30 Albumin 3.0 g/dl (3.4-5.0) L 04/05/18 06:30 CARDIAC ENZYMES Troponin I < 0.02 ng/ml (0.00-0.05) 04/04/18 12:18 Imaging - Results Cat Scan: Report Reviewed (Lumbar/spine- L5-S1. 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 Moderate facet joint arthropathy. Minimal grade 1 degenerative anterior spondylolisthesis of L5 on S1. Left neural foraminal narrowing. Head: no acute findings cervical spine: no acute findings) Ultrasound: Report Reviewed (b/l duplex neg dvt) EKG: Report Reviewed (NSR) EMG: Report reviewed (peroneal nerve palsy, no evidence of L5 Radic) Plan 82 year old female who comes in with worsened functional capability at home. Pt had a mechanical fall 1 week ago resulting in left clavicular fx, she was evaluated in ED and discharged home. Since being at home, pt reported inability to perform ADLs independently due to increased pain and weakness. One week prior to admission she reported noticing left foot drop and difficulty ambulating. She reported almost falling at home due to above symptoms. Denied any falls, head trauma. Pt was unable to follow up with ortho as outpatient because she was not able to leave home. She was admitted to [facility] for further evaluation and management. Although right foot with full strength to dorsiflexion, L foot is limited. 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 Moderate facet joint arthropathy. Minimal grade 1 degenerative anterior spondylolisthesis of L5 on S1. Left neural foraminal narrowing. CT head reviewed and no acute changes. NSGY consulted, note reviewed. Patient not interested in surgery. Emg reviewed and discussed, consistent with peroneal nerve palsy. Recommend brace, physical therapy. May be having BECKY for back pain. Fall precautions, assistive device for ambulation. Monitor blood pressure, maintain normal range.
--- NOTE | 2018-04-05 09:56 | EKG ---
Test Reason : Blood Pressure : / mmHG Vent. Rate : 073 BPM Atrial Rate : 073 BPM P-R Int : 190 ms QRS Dur : 104 ms QT Int : 438 ms P-R-T Axes : 077 -49 016 degrees QTc Int : 482 ms NORMAL SINUS RHYTHM LEFT ANTERIOR FASCICULAR BLOCK MODERATE VOLTAGE CRITERIA FOR LVH, MAY BE NORMAL VARIANT ABNORMAL ECG WHEN COMPARED WITH ECG OF 02-APR-2018 15:13, NO SIGNIFICANT CHANGE WAS FOUND Confirmed by SUNDEEP RIVERS MD ([id number]) on 04/05/2018 9:56:17 AM Referred By: Demetrio GUILLEN Confirmed By:SUNDEEP RIVERS MD
[2018-04-05] MEDS ORDERED: PT OWN MED DRAWER 7, Y5N ONE ×2 (10:05→21:35)
[2018-04-05] MEDS: CALCIUM 250MG/VIT-D 125 UNITS 1 COMBO TABLET PO SCH (10:08)
[2018-04-05] MEDS: HEPARIN NA (PORCINE) 5,000 UNITS/ML 1ML VIAL SQ SCH ×2 (10:08→21:52)
[2018-04-05] MEDS: ASPIRIN COATED 81 MG TABLET.EC PO SCH (10:09)
[2018-04-05] MEDS: OMEGA-3 ACID ETHYL ESTERS (FATTY-ACIDS) 1 GM CAPSULE (FP) PO SCH ×2 (10:09→21:52)
[2018-04-05] MEDS: RANITIDINE HCL 150 MG TABLET (FP) PO SCH (10:09)
[2018-04-05] MEDS: BUDESONIDE/FORMETEROL FUMARATE 80/4.5 mcg INHALER IH SCH ×2 (10:09→21:56)
[2018-04-05] MEDS: CHOLECALCIFEROL (VITAMIN D3) 1,000 UNIT TABLET (FP) PO SCH (10:09)
[2018-04-05] MEDS: ASCORBIC ACID 500 MG TABLET (FP) PO SCH (10:09)
[2018-04-05] MEDS: CARVEDILOL 6.25 MG TABLET (FP) PO SCH ×2 (10:09→21:52)
[2018-04-05] MEDS: FERROUS SO4 325 MG TABLET (FP) PO SCH (10:09)
--- NOTE | 2018-04-05 13:06 | PN ---
Progress Note (short form) - Note Progress Note: Pt seen and examined, left clavicle fracture. She c/o mod pain left clavicle area. Also with left foot drop. Seen by neurosurgery. She is refusing surgery at this time. Therefore she may benefit from an AFO brace on the left foot and ankle. I spoke to the nurse about this. (company is [employer] NTD from an orthopedic pov. Will follow.
--- NOTE | 2018-04-05 13:40 | PN ---
Progress Note, Physician History of Present Illness: Left foot drop persists, LBP improved, denies chest pain or dyspnea. - Current Medication List Current Medications: Active Medications Acetaminophen (Tylenol -) 650 mg PO Q6H PRN PRN Reason: PAIN LEVEL 1-5 Last Admin: 04/04/18 06:43 Dose: 650 mg Albuterol Sulfate (Ventolin 0.5% -) 1 amp NEB Q6H PRN PRN Reason: SHORTNESS OF BREATH Ascorbic Acid (Vitamin C -) 500 mg PO DAILY [facility] Last Admin: 04/05/18 10:09 Dose: 500 mg Aspirin (Ecotrin -) 81 mg PO DAILY [facility] Last Admin: 04/05/18 10:09 Dose: 81 mg Atorvastatin Calcium (Lipitor -) 10 mg PO HS [facility] Last Admin: 04/04/18 21:59 Dose: 10 mg Budesonide/Formoterol Fumarate (Symbicort 80/4.5mcg -) 2 puff IH BID [facility] Last Admin: 04/05/18 10:09 Dose: 2 puff Calcium/Vitamin D (Oscal 250 Mg+D -) 1 tab PO DAILY [facility] Last Admin: 04/05/18 10:08 Dose: 1 tab Carvedilol (Coreg -) 6.25 mg PO BID [facility] Last Admin: 04/05/18 10:09 Dose: 6.25 mg Cholecalciferol (Vitamin D3 -) 1,000 unit PO DAILY [facility] Last Admin: 04/05/18 10:09 Dose: 1,000 unit Emollient Ointment (Aquaphor -) 1 applic TP BID PRN PRN Reason: DRY SKIN Ferrous Sulfate (Feosol -) 325 mg PO DAILY [facility] Last Admin: 04/05/18 10:09 Dose: 325 mg Heparin Sodium (Porcine) (Heparin -) 5,000 unit SQ BID [facility] Last Admin: 04/05/18 10:08 Dose: 5,000 unit Sodium Chloride (Normal Saline -) 1,000 mls @ 42 mls/hr IV ASDIR [facility] Last Admin: 04/04/18 16:20 Dose: 42 mls/hr Latanoprost (Xalatan 0.005% Eye Drops -) 1 drop OU HS [facility] Last Admin: 04/04/18 22:13 Dose: 1 drop Levothyroxine Sodium (Synthroid -) 25 mcg PO 0700 [facility] Last Admin: 04/05/18 07:06 Dose: 25 mcg Metformin HCl (Glucophage -) 500 mg PO BIDAC [facility] Last Admin: 04/05/18 07:06 Dose: 500 mg [id number] Ethyl Esters (Lovaza -) 2 gm PO BID [facility] Last Admin: 04/05/18 10:09 Dose: 2 gm Ranitidine HCl (Zantac -) 150 mg PO DAILY [facility] Last Admin: 04/05/18 10:09 Dose: 150 mg Sertraline HCl (Zoloft -) 25 mg PO HS [facility] Last Admin: 04/04/18 22:10 Dose: 25 mg Sitagliptin Phosphate (Januvia -) 100 mg PO 0700 [facility] Last Admin: 04/05/18 07:06 Dose: 100 mg Vancomycin HCl (Vancomycin Oral Solution) 125 mg PO Q6HPO [facility] Last Admin: 04/05/18 13:28 Dose: 125 mg - Objective Vital Signs: Vital Signs Temperature 97.8 F 04/05/18 10:00 Pulse Rate 81 04/05/18 10:00 Respiratory Rate 20 04/05/18 10:00 Blood Pressure 137/68 04/05/18 10:00 O2 Sat by Pulse Oximetry (%) 98 04/04/18 21:46 Constitutional: Yes: No Distress, Calm, Thin Neck: Yes: Supple Cardiovascular: Yes: Regular Rate and Rhythm Respiratory: Yes: Regular, CTA Bilaterally Gastrointestinal: Yes: Normal Bowel Sounds, Soft Edema: No Neurological: Yes: Unsteady Gait, Other (Left foot drop) Labs: CBC, BMP 04/05/18 06:30 04/05/18 06:30 Problem List - Problems (1) Lumbar back pain with radiculopathy affecting left lower extremity Code(s): M54.16 - RADICULOPATHY, LUMBAR REGION (2) Foot drop, left Code(s): M21.372 - FOOT DROP, LEFT FOOT (3) S/P mitral valve replacement Code(s): Z95.2 - PRESENCE OF PROSTHETIC HEART VALVE (4) Spondylolisthesis at L5-S1 level Code(s): M43.17 - SPONDYLOLISTHESIS, LUMBOSACRAL REGION (5) T2DM (type 2 diabetes mellitus) Code(s): E11.9 - TYPE 2 DIABETES MELLITUS WITHOUT COMPLICATIONS Qualifiers: Diabetes mellitus mcc insulin use: without manager terminal use (6) CAD (coronary artery disease) Code(s): I25.10 - ATHSCL HEART DISEASE OF [place] CORONARY ARTERY W/O ANG PCTRS Qualifiers: Coronary Disease-Associated Artery/Lesion type: [place] artery [place] vs. transplanted heart: [place] heart Associated angina: without angina Qualified Code(s): I25.10 - Atherosclerotic heart disease of [place] coronary artery without angina pectoris (7) HTN (hypertension) Code(s): I10 - ESSENTIAL (PRIMARY) HYPERTENSION Qualifiers: Hypertension type: essential hypertension Qualified Code(s): I10 - Essential (primary) hypertension (8) Hyperlipidemia Code(s): E78.5 - HYPERLIPIDEMIA, UNSPECIFIED Qualifiers: Hyperlipidemia type: pure hypercholesterolemia Qualified Code(s): E78.00 - Pure hypercholesterolemia, unspecified; E78.0 - Pure hypercholesterolemia (9) Hypothyroid Code(s): E03.9 - HYPOTHYROIDISM, UNSPECIFIED Qualifiers: Hypothyroidism type: unspecified Qualified Code(s): E03.9 - Hypothyroidism , unspecified (10) Pulmonary hypertension Code(s): I27.2 - OTHER SECONDARY PULMONARY HYPERTENSION * DO NOT USE * (11) S/P TAVR (transcatheter aortic valve replacement) Code(s): Z95.2 - PRESENCE OF PROSTHETIC HEART VALVE Assessment/Plan December 22, 2017 Echo: Normal LV size with mildly decreased LV fxn, bioprosthetic AV and MV is seen, mild TR RVSP 40 mmHg 1. L5-S1 spinal stenosis and peroneal nerve palsy 2. Severe aortic valve disease () s/p TAVR 3. s/p mitral valve bioprosthetic replacement, LV myomectomy and ALFREDO closure with Atriclip 10/2017 for ruptured mitral chordae with mod-severe mitral valve regurgitation 4. Hypertension 5. Hypercholesterolemia 6. COPD 7. Sleep apnea 8. Anemia 9. Diabetes mellitus 10. Hypothyroidism 11. + c. diff Ag, enterococcus colonization in urine PLAN: 1. Given multiple co-morbidities and complex medical history agree with trial of epidural steroid injections as opposed to surgical intervention 2. Continue Carvedilol 6.25 bid, ASA 81 qd, Lipitor 10 qd Lovaza 2 bid 3. Recommended brace, physical therapy. May be having BECKY for back pain 4. Oral vanco course, DVT and GI prophylaxis
[2018-04-05] MEDS: LACTOBACILLUS ACIDOPHILUS 1 TABLET PO SCH (14:42)
--- NOTE | 2018-04-05 15:55 | PN ---
Progress Note, Physician History of Present Illness: PULMONARY ALERT,NO DISTRESS,-CP,-SOB. UPPER EXT DUPLEX -PE - Current Medication List Current Medications: Active Medications Acetaminophen (Tylenol -) 650 mg PO Q6H PRN PRN Reason: PAIN LEVEL 1-5 Last Admin: 04/04/18 06:43 Dose: 650 mg Albuterol Sulfate (Ventolin 0.5% -) 1 amp NEB Q6H PRN PRN Reason: SHORTNESS OF BREATH Ascorbic Acid (Vitamin C -) 500 mg PO DAILY [facility] Last Admin: 04/05/18 10:09 Dose: 500 mg Aspirin (Ecotrin -) 81 mg PO DAILY [facility] Last Admin: 04/05/18 10:09 Dose: 81 mg Atorvastatin Calcium (Lipitor -) 10 mg PO HS [facility] Last Admin: 04/04/18 21:59 Dose: 10 mg Budesonide/Formoterol Fumarate (Symbicort 80/4.5mcg -) 2 puff IH BID [facility] Last Admin: 04/05/18 10:09 Dose: 2 puff Calcium/Vitamin D (Oscal 250 Mg+D -) 1 tab PO DAILY [facility] Last Admin: 04/05/18 10:08 Dose: 1 tab Carvedilol (Coreg -) 6.25 mg PO BID [facility] Last Admin: 04/05/18 10:09 Dose: 6.25 mg Cholecalciferol (Vitamin D3 -) 1,000 unit PO DAILY [facility] Last Admin: 04/05/18 10:09 Dose: 1,000 unit Emollient Ointment (Aquaphor -) 1 applic TP BID PRN PRN Reason: DRY SKIN Ferrous Sulfate (Feosol -) 325 mg PO DAILY [facility] Last Admin: 04/05/18 10:09 Dose: 325 mg Heparin Sodium (Porcine) (Heparin -) 5,000 unit SQ BID [facility] Last Admin: 04/05/18 10:08 Dose: 5,000 unit Sodium Chloride (Normal Saline -) 1,000 mls @ 42 mls/hr IV ASDIR [facility] Last Admin: 04/04/18 16:20 Dose: 42 mls/hr Levofloxacin (Levaquin 250 Mg Premixed Ivpb -) 250 mg in 50 mls @ 50 mls/hr IVPB DAILY [facility] Stop: 04/07/18 10:59 Last Admin: 04/05/18 14:42 Dose: 50 mls/hr Lactobacillus Acidophilus (Bacid -) 1 tab PO DAILY [facility] Last Admin: 04/05/18 14:42 Dose: 1 tab Latanoprost (Xalatan 0.005% Eye Drops -) 1 drop OU HS [facility] Last Admin: 04/04/18 22:13 Dose: 1 drop Levothyroxine Sodium (Synthroid -) 25 mcg PO 0700 [facility] Last Admin: 04/05/18 07:06 Dose: 25 mcg Metformin HCl (Glucophage -) 500 mg PO BIDAC [facility] Last Admin: 04/05/18 07:06 Dose: 500 mg Oqyso-5-Bhko Ethyl Esters (Lovaza -) 2 gm PO BID [facility] Last Admin: 04/05/18 10:09 Dose: 2 gm Ranitidine HCl (Zantac -) 150 mg PO DAILY [facility] Last Admin: 04/05/18 10:09 Dose: 150 mg Sertraline HCl (Zoloft -) 25 mg PO HS [facility] Last Admin: 04/04/18 22:10 Dose: 25 mg Sitagliptin Phosphate (Januvia -) 100 mg PO 0700 [facility] Last Admin: 04/05/18 07:06 Dose: 100 mg Vancomycin HCl (Vancomycin Oral Solution) 125 mg PO Q6HPO [facility] Last Admin: 04/05/18 13:28 Dose: 125 mg - Objective Vital Signs: Vital Signs Temperature 98.2 F 04/05/18 15:09 Pulse Rate 80 04/05/18 15:09 Respiratory Rate 18 04/05/18 15:09 Blood Pressure 124/78 04/05/18 15:09 O2 Sat by Pulse Oximetry (%) 95 04/05/18 09:00 Constitutional: Yes: Well Nourished, Calm Eyes: Yes: WNL HENT: Yes: WNL Neck: Yes: WNL Cardiovascular: Yes: Regular Rate and Rhythm, S1, S2 Respiratory: Yes: CTA Bilaterally Gastrointestinal: Yes: Normal Bowel Sounds, Soft Extremities: Yes: WNL Edema: No Labs: CBC, BMP 04/05/18 06:30 04/05/18 06:30 Assessment/Plan Problem List - Problems (1) Elevated d-dimer Code(s): R79.89 - OTHER SPECIFIED ABNORMAL FINDINGS OF BLOOD CHEMISTRY (2) Lumbar back pain with radiculopathy affecting left lower extremity Code(s): M54.16 - RADICULOPATHY, LUMBAR REGION (3) Clavicle fracture Code(s): S42.009A - FRACTURE OF UNSP PART OF UNSP CLAVICLE, INIT FOR CLOS FX Qualifiers: Encounter type: subsequent encounter Clavicle location: lateral end Fracture type: closed Fracture alignment: displaced Laterality: left (4) Hyperlipidemia Code(s): E78.5 - HYPERLIPIDEMIA, UNSPECIFIED Qualifiers: Hyperlipidemia type: pure hypercholesterolemia Qualified Code(s): E78.00 - Pure hypercholesterolemia, unspecified; E78.0 - Pure hypercholesterolemia (5) Hypothyroid Code(s): E03.9 - HYPOTHYROIDISM, UNSPECIFIED Qualifiers: Hypothyroidism type: unspecified Qualified Code(s): E03.9 - Hypothyroidism , unspecified (6) Mitral valve regurgitation Code(s): I34.0 - NONRHEUMATIC MITRAL (VALVE) INSUFFICIENCY Qualifiers: Cardiac valve disease etiology: nonrheumatic Qualified Code(s): I34.0 - Nonrheumatic mitral (valve) insufficiency (7) S/P TAVR (transcatheter aortic valve replacement) Code(s): Z95.2 - PRESENCE OF PROSTHETIC HEART VALVE Assessment/Plan Elevated D-dimer Recent fall with Left Clavicular Fracture L5-S1 Spinal Stenosis/Radiculopathy Aortic Stenosis s/p TAVR h/o bio MVR COPD HTN Hypercholesterolemia Hypothyroidism HONEY - pt without new symptoms of chest pain and palpitations, not tachycardic, denies shortness of breath and is saturating 96% on room air so clinically less likely significant venous thromboembolism - pt with recent trauma and significant bruising which may explain her elevated d-dimer - inhaled bronchodilators as needed - Symbicort - DVT prophylaxis DR MCINTYRE
[2018-04-05] MEDS: SODIUM CHLORIDE 1,000 ML IV SCH (17:00)
--- NOTE | 2018-04-05 17:09 | PN ---
Progress Note, Physician Chief Complaint: Pt lying in bed. reports feel better today. lack of appetite. still having diarrhea. c/o dysuria without improvement. slowly tolerating diet. reports back pain is controlled. denies any chest pain, sob - Current Medication List Current Medications: Active Medications Acetaminophen (Tylenol -) 650 mg PO Q6H PRN PRN Reason: PAIN LEVEL 1-5 Last Admin: 04/04/18 06:43 Dose: 650 mg Albuterol Sulfate (Ventolin 0.5% -) 1 amp NEB Q6H PRN PRN Reason: SHORTNESS OF BREATH Ascorbic Acid (Vitamin C -) 500 mg PO DAILY [facility] Last Admin: 04/05/18 10:09 Dose: 500 mg Aspirin (Ecotrin -) 81 mg PO DAILY [facility] Last Admin: 04/05/18 10:09 Dose: 81 mg Atorvastatin Calcium (Lipitor -) 10 mg PO HS [facility] Last Admin: 04/04/18 21:59 Dose: 10 mg Budesonide/Formoterol Fumarate (Symbicort 80/4.5mcg -) 2 puff IH BID [facility] Last Admin: 04/05/18 10:09 Dose: 2 puff Calcium/Vitamin D (Oscal 250 Mg+D -) 1 tab PO DAILY [facility] Last Admin: 04/05/18 10:08 Dose: 1 tab Carvedilol (Coreg -) 6.25 mg PO BID [facility] Last Admin: 04/05/18 10:09 Dose: 6.25 mg Cholecalciferol (Vitamin D3 -) 1,000 unit PO DAILY [facility] Last Admin: 04/05/18 10:09 Dose: 1,000 unit Emollient Ointment (Aquaphor -) 1 applic TP BID PRN PRN Reason: DRY SKIN Last Admin: 04/05/18 17:02 Dose: 1 applic Ferrous Sulfate (Feosol -) 325 mg PO DAILY [facility] Last Admin: 04/05/18 10:09 Dose: 325 mg Heparin Sodium (Porcine) (Heparin -) 5,000 unit SQ BID [facility] Last Admin: 04/05/18 10:08 Dose: 5,000 unit Sodium Chloride (Normal Saline -) 1,000 mls @ 42 mls/hr IV ASDIR [facility] Last Admin: 04/05/18 17:00 Dose: 42 mls/hr Levofloxacin (Levaquin 250 Mg Premixed Ivpb -) 250 mg in 50 mls @ 50 mls/hr IVPB DAILY [facility] Stop: 04/07/18 10:59 Last Admin: 04/05/18 14:42 Dose: 50 mls/hr Lactobacillus Acidophilus (Bacid -) 1 tab PO DAILY [facility] Last Admin: 04/05/18 14:42 Dose: 1 tab Latanoprost (Xalatan 0.005% Eye Drops -) 1 drop OU HS [facility] Last Admin: 04/04/18 22:13 Dose: 1 drop Levothyroxine Sodium (Synthroid -) 25 mcg PO 0700 [facility] Last Admin: 04/05/18 07:06 Dose: 25 mcg Metformin HCl (Glucophage -) 500 mg PO BIDAC [facility] Last Admin: 04/05/18 07:06 Dose: 500 mg Bzpqe-7-Yssh Ethyl Esters (Lovaza -) 2 gm PO BID [facility] Last Admin: 04/05/18 10:09 Dose: 2 gm Ranitidine HCl (Zantac -) 150 mg PO DAILY [facility] Last Admin: 04/05/18 10:09 Dose: 150 mg Sertraline HCl (Zoloft -) 25 mg PO HS [facility] Last Admin: 04/04/18 22:10 Dose: 25 mg Sitagliptin Phosphate (Januvia -) 100 mg PO 0700 [facility] Last Admin: 04/05/18 07:06 Dose: 100 mg Vancomycin HCl (Vancomycin Oral Solution) 125 mg PO Q6HPO [facility] Last Admin: 04/05/18 17:00 Dose: 125 mg - Objective Vital Signs: Vital Signs Temperature 98.2 F 04/05/18 15:09 Pulse Rate 80 04/05/18 15:09 Respiratory Rate 18 04/05/18 15:09 Blood Pressure 124/78 04/05/18 15:09 O2 Sat by Pulse Oximetry (%) 95 04/05/18 09:00 Constitutional: Yes: Well Nourished, No Distress, Calm Cardiovascular: Yes: WNL, Regular Rate and Rhythm Respiratory: Yes: WNL, Regular, CTA Bilaterally. No: Accessory Muscle Use, SOB , Tachypnea, Wheezes Gastrointestinal: Yes: Normal Bowel Sounds, Soft, Abdomen, Obese, Other ( diarrhea). No: Distention, Tenderness Genitourinary: Yes: Other (complaints of dysuria) Musculoskeletal: Yes: Back Pain Edema: No Neurological: Yes: WNL, Alert, Oriented Psychiatric: Yes: WNL, Alert, Oriented Labs: CBC, BMP 04/05/18 06:30 04/05/18 06:30 Assessment/Plan (1) Foot drop, left Assessment/Plan: acute CT L/S- grade 1 degenerative anterior spondylolisthesis of L5 on S1. Left neural foraminal narrowing. EMG without radiculopathy AFO brace pt ambulated 30 ft- would benefit from SNF pain management consulted for BECKY nsgy/neurology consult appreciated Code(s): M21.372 - FOOT DROP, LEFT FOOT (2) Spondylolisthesis at L5-S1 level Assessment/Plan: as above Code(s): M43.17 - SPONDYLOLISTHESIS, LUMBOSACRAL REGION (3) Weakness Assessment/Plan: 2/2 mechanical fall , poor po intake head CT neg as above Code(s): R53.1 - WEAKNESS (4) Clavicle fracture Assessment/Plan: stable ortho evaluated- no surgical intervention continue sling for support adequate pain control Code(s): S42.009A - FRACTURE OF UNSP PART OF UNSP CLAVICLE, INIT FOR CLOS FX Qualifiers: Encounter type: subsequent encounter Clavicle location: lateral end Fracture type: closed Fracture alignment: displaced Laterality: left (5) Osteoarthritis Assessment/Plan: continue vitamin D Code(s): M19.90 - UNSPECIFIED OSTEOARTHRITIS, UNSPECIFIED SITE Qualifiers: Osteoarthritis location: multiple joints Osteoarthritis type: primary Qualified Code(s): M15.0 - Primary generalized (osteo)arthritis (6) Elevated d-dimer Assessment/Plan: ddimer level 1731 b/l le/ue duplex neg for dvt low suspicion of pe pulm consult appreciated Code(s): R79.89 - OTHER SPECIFIED ABNORMAL FINDINGS OF BLOOD CHEMISTRY (7) S/P TAVR (transcatheter aortic valve replacement) Assessment/Plan: stable, s/p tavr 08/13 Code(s): Z95.2 - PRESENCE OF PROSTHETIC HEART VALVE (8) S/P mitral valve replacement Assessment/Plan: stable, s/p bioprosthetic mvr 11/11 Code(s): Z95.2 - PRESENCE OF PROSTHETIC HEART VALVE (9) HTN (hypertension) Assessment/Plan: controlled continue carvedilol Code(s): I10 - ESSENTIAL (PRIMARY) HYPERTENSION Qualifiers: Hypertension type: essential hypertension Qualified Code(s): I10 - Essential (primary) hypertension (10) Hypothyroid Assessment/Plan: chronic continue synthroid Code(s): E03.9 - HYPOTHYROIDISM, UNSPECIFIED Qualifiers: Hypothyroidism type: unspecified Qualified Code(s): E03.9 - Hypothyroidism , unspecified (11) Hyperlipidemia Assessment/Plan: Controlled Continue lipitor, lovaza continue lifestyle modifications Code(s): E78.5 - HYPERLIPIDEMIA, UNSPECIFIED (12) GERD (gastroesophageal reflux disease) Assessment/Plan: Stable Continue zantac Code(s): K21.9 - GASTRO-ESOPHAGEAL REFLUX DISEASE WITHOUT ESOPHAGITIS Qualifiers: Esophagitis presence: without esophagitis Qualified Code(s): K21.9 - Gastro -esophageal reflux disease without esophagitis (13) Diabetes Assessment/Plan: controlled continue metformin/januvia Code(s): E11.9 - TYPE 2 DIABETES MELLITUS WITHOUT COMPLICATIONS Qualifiers: Diabetes mellitus type: type 2 Diabetes mellitus complication status: with ophthalmic complications Diabetes mellitus complication detail: with diabetic retinopathy 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 transplanted heart: [place] heart Associated angina: without angina Qualified Code(s): I25.10 - Atherosclerotic heart disease of [place] coronary artery without angina pectoris (15) COPD (chronic obstructive pulmonary disease) Assessment/Plan: chronic continue breo, albuterol Code(s): J44.9 - CHRONIC OBSTRUCTIVE PULMONARY DISEASE, UNSPECIFIED Qualifiers: COPD type: unspecified COPD Qualified Code(s): J44.9 - Chronic obstructive pulmonary disease, unspecified (16) Hypotension Assessment/Plan: resolved s/p ivf encourage po intake Code(s): I95.9 - HYPOTENSION, UNSPECIFIED (17) Clostridium difficile colitis Assessment/Plan: cdiff antigen positive frequent diarrhea, poor po intake po vanco day 2 monitor Code(s): A04.72 - ENTEROCOLITIS D/T CLOSTRIDIUM DIFFICILE, NOT SPCF RECUR (18) Chest pain Assessment/Plan: resolved, no acs cardiology following Code(s): R07.9 - CHEST PAIN, UNSPECIFIED (19) Nausea Assessment/Plan: improved suspect 2/2 cdiff colitis Abd/pelvic CT w/ gall stones, no cholecysitis/obstruction full liquids diet monitor Code(s): R11.0 - NAUSEA (20) UTI (urinary tract infection) Assessment/Plan: UC growing enterococcus faecalis pt symptomatic, complaints of dysuria levaquin iv day 1 Code(s): N39.0 - URINARY TRACT INFECTION, SITE NOT SPECIFIED Qualifiers: Urinary tract infection type: acute cystitis Hematuria presence: without hematuria Qualified Code(s): N30.00 - Acute cystitis without hematuria Dispo: SNF
[2018-04-05] MEDS: ACETAMINOPHEN 325 MG TABLET (FP) PO PRN (17:17)
[2018-04-05] MEDS: ATORVASTATIN CA 10 MG TABLET (FP) PO SCH (21:52)
[2018-04-05] MEDS: LATANOPROST 0.005% OPHTH SOLN 2.5ML BOTTLE OU SCH (21:56)
[2018-04-05] MEDS: SERTRALINE HCL 25 MG TABLET (FP) PO SCH (22:43)
[2018-04-06] MEDS: ACETAMINOPHEN 325 MG TABLET (FP) PO PRN (05:35)
[2018-04-06] MEDS: VANCOMYCIN 250 MG/5 ML ORAL SOLUTION PO SCH ×3 (05:40→18:40)
[2018-04-06] MEDS: metFORMIN HCL 500 MG TABLET (FP) PO SCH ×2 (06:10→16:54)
[2018-04-06] MEDS: sitaGLIPtin PHOSPHATE 50 MG TABLET PO SCH (06:10)
[2018-04-06] MEDS: LEVOTHYROXINE NA 25 MCG TABLET (FP) PO SCH (06:10)
[2018-04-06 08:18] LABS: ANION GAP 7 MMOL/L (8-16); BLOOD UREA NITROGEN 15 mg/dL (7-18); CALCIUM 8.8 mg/dL (8.5-10.1); CHLORIDE 106 mmol/L (98-107); CO2 27 mmol/L (21-32); CREATININE 0.6 mg/dL (0.55-1.3); GLUCOSE,RANDOM 112 mg/dL (74-106); POTASSIUM 4.3 mmol/L (3.5-5.1); SODIUM 140 mmol/L (136-145)
[2018-04-06 08:54] LABS: BASO % 0.7 % (0-2.0); EOS % 2.4 % (0-4.5); HEMATOCRIT 32.2 % (32.4-45.2); HEMOGLOBIN 10.8 GM/dL (10.7-15.3); LYMPH % 21.4 % (8-40); MCH 28.9 pg (25.7-33.7); MCHC 33.4 g/dl (32.0-36.0); MEAN CELL VOLUME 86.5 fl (80-96); MEAN PLT VOLUME 7.8 fl (7.5-11.1); MONO % 10.5 % (3.8-10.2); PLATELET COUNT 272 K/MM3 (134-434); RBC 3.73 M/mm3 (3.60-5.2); RDW 14.6 % (11.6-15.6); WHITE BLOOD COUNT 7.2 K/mm3 (4.0-10.0)
--- NOTE | 2018-04-06 09:49 | PN ---
Progress Note (short form) - Note Progress Note: Neurology History of Present Illness History of Present Illness: 82 year old female who comes in with worsened functional capability at home. Pt had a mechanical fall 1 week ago resulting in left clavicular fx, she was evaluated in ED and discharged home. Since being at home, pt reported inability to perform ADLs independently due to increased pain and weakness. One weke prior to admission she reported noticing left foot drop and difficulty ambulating. She reported almost falling at home due to above symptoms. Denied any falls, head trauma. Pt was unable to follow up with ortho as outpatient because she was not able to leave home. She was admitted to [facility] for further evaluation and management. Although right foot with full strength to dorsiflexion, L foot is limited. 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 Moderate facet joint arthropathy. Minimal grade 1 degenerative anterior spondylolisthesis of L5 on S1. Left neural foraminal narrowing. NSGY consulted, note reviewed, recommended considering further medical mgmt. Emg reviewed and discussed, consistent with peroneal nerve palsy. orthopedic note reviewed, brace recommended, no further intervention required as per Dr. Rodriguez. She is in good spirits and is moving her left foot slightly more than prior but no significant improvement. We'll likely require short-term rehabilitation along with assistive device. - Allergies Allergies/Adverse Reactions: Allergies Allergy/AdvReac Type Severity Reaction Status Date / Time quinine [Quinine] Allergy Mild Rash Verified 04/02/18 15:11 Sulfa (Sulfonamide Allergy Mild Rash Verified 04/02/18 15:11 Antibiotics) [Sulfa(Sulfonamide Antibiotics)] Active Medications Acetaminophen (Tylenol -) 650 mg PO Q6H PRN PRN Reason: PAIN LEVEL 1-5 Last Admin: 04/06/18 05:35 Dose: 650 mg Albuterol Sulfate (Ventolin 0.5% -) 1 amp NEB Q6H PRN PRN Reason: SHORTNESS OF BREATH Ascorbic Acid (Vitamin C -) 500 mg PO DAILY [facility] Last Admin: 04/05/18 10:09 Dose: 500 mg Aspirin (Ecotrin -) 81 mg PO DAILY [facility] Last Admin: 04/05/18 10:09 Dose: 81 mg Atorvastatin Calcium (Lipitor -) 10 mg PO HS [facility] Last Admin: 04/05/18 21:52 Dose: 10 mg Budesonide/Formoterol Fumarate (Symbicort 80/4.5mcg -) 2 puff IH BID [facility] Last Admin: 04/05/18 21:56 Dose: 2 puff Calcium/Vitamin D (Oscal 250 Mg+D -) 1 tab PO DAILY [facility] Last Admin: 04/05/18 10:08 Dose: 1 tab Carvedilol (Coreg -) 6.25 mg PO BID [facility] Last Admin: 04/05/18 21:52 Dose: 6.25 mg Cholecalciferol (Vitamin D3 -) 1,000 unit PO DAILY [facility] Last Admin: 04/05/18 10:09 Dose: 1,000 unit Emollient Ointment (Aquaphor -) 1 applic TP BID PRN PRN Reason: DRY SKIN Last Admin: 04/05/18 17:02 Dose: 1 applic Ferrous Sulfate (Feosol -) 325 mg PO DAILY [facility] Last Admin: 04/05/18 10:09 Dose: 325 mg Heparin Sodium (Porcine) (Heparin -) 5,000 unit SQ BID [facility] Last Admin: 04/05/18 21:52 Dose: 5,000 unit Sodium Chloride (Normal Saline -) 1,000 mls @ 42 mls/hr IV ASDIR [facility] Last Admin: 04/05/18 17:00 Dose: 42 mls/hr Levofloxacin (Levaquin 250 Mg Premixed Ivpb -) 250 mg in 50 mls @ 50 mls/hr IVPB DAILY [facility] Stop: 04/07/18 10:59 Last Admin: 04/05/18 14:42 Dose: 50 mls/hr Lactobacillus Acidophilus (Bacid -) 1 tab PO DAILY [facility] Last Admin: 04/05/18 14:42 Dose: 1 tab Latanoprost (Xalatan 0.005% Eye Drops -) 1 drop OU HS [facility] Last Admin: 04/05/18 21:56 Dose: 1 drop Levothyroxine Sodium (Synthroid -) 25 mcg PO 0700 [facility] Last Admin: 04/06/18 06:10 Dose: 25 mcg Metformin HCl (Glucophage -) 500 mg PO BIDAC [facility] Last Admin: 04/06/18 06:10 Dose: 500 mg Hfwfz-6-Fovz Ethyl Esters (Lovaza -) 2 gm PO BID [facility] Last Admin: 04/05/18 21:52 Dose: 2 gm Ranitidine HCl (Zantac -) 150 mg PO DAILY [facility] Last Admin: 04/05/18 10:09 Dose: 150 mg Sertraline HCl (Zoloft -) 25 mg PO HS [facility] Last Admin: 04/05/18 22:43 Dose: 25 mg Sitagliptin Phosphate (Januvia -) 100 mg PO 0700 [facility] Last Admin: 04/06/18 06:10 Dose: 100 mg Vancomycin HCl (Vancomycin Oral Solution) 125 mg PO Q6HPO [facility] Last Admin: 04/06/18 05:40 Dose: 125 mg Physical Examination Vital Signs Period Temp Pulse Resp BP Sys/Jose Pulse Ox Last 24 Hr 97.6 F-98.3 F 76-82 16-20 124-144/68-80 95 Gen: Awake, alert, responds to questions Card: RRR, nml S1,S2 Resp: Normal symmetric effort, lungs clear to auscultation Abdomen: Soft, nontender, bowel sounds active Musculoskeletal: Adequate range of motion without significant deformity Head atraumatic and normocephalic CN: PERRL, EOMI intact, no apparent facial droop, no abnormalities in facial sensation, palate elevates, uvula and tongue midline Motor: L foot dorsiflexion limited 1+/5, otherwise grossly 5-/5 throughout Sensory: Intact to Temperature, light touch Coordination: Intact on [id number]-[id number] testing Gait: deferred CBCD WBC 7.2 K/mm3 (4.0-10.0) 04/06/18 07:00 RBC 3.73 M/mm3 (3.60-5.2) 04/06/18 07:00 Hgb 10.8 GM/dL (10.7-15.3) 04/06/18 07:00 Hct 32.2 % (32.4-45.2) L 04/06/18 07:00 MCV 86.5 fl (80-96) 04/06/18 07:00 MCHC 33.4 g/dl (32.0-36.0) 04/06/18 07:00 RDW 14.6 % (11.6-15.6) 04/06/18 07:00 Plt Count 272 K/MM3 (134-434) 04/06/18 07:00 MPV 7.8 fl (7.5-11.1) 04/06/18 07:00 CMP Sodium 140 mmol/L (136-145) 04/06/18 07:00 Potassium 4.3 mmol/L (3.5-5.1) 04/06/18 07:00 Chloride 106 mmol/L (98-107) 04/06/18 07:00 Carbon Dioxide 27 mmol/L (21-32) 04/06/18 07:00 Anion Gap 7 MMOL/L (8-16) L 04/06/18 07:00 BUN 15 mg/dL (7-18) 04/06/18 07:00 Creatinine 0.6 mg/dL (0.55-1.3) 04/06/18 07:00 Creat Clearance w eGFR > 60 (>60) 04/06/18 07:00 Random Glucose 112 mg/dL (74-106) H 04/06/18 07:00 Calcium 8.8 mg/dL (8.5-10.1) 04/06/18 07:00 Total Bilirubin 0.5 mg/dL (0.2-1) 04/05/18 06:30 AST 16 U/L (15-37) 04/05/18 06:30 ALT 13 U/L (13-61) 04/05/18 06:30 Alkaline Phosphatase 73 U/L (45-117) 04/05/18 06:30 Total Protein 6.6 g/dl (6.4-8.2) 04/05/18 06:30 Albumin 3.0 g/dl (3.4-5.0) L 04/05/18 06:30 CARDIAC ENZYMES Troponin I < 0.02 ng/ml (0.00-0.05) 04/04/18 12:18 Imaging - Results Cat Scan: Report Reviewed (Lumbar/spine- L5-S1. 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 Moderate facet joint arthropathy. Minimal grade 1 degenerative anterior spondylolisthesis of L5 on S1. Left neural foraminal narrowing. Head: no acute findings cervical spine: no acute findings) Ultrasound: Report Reviewed (b/l duplex neg dvt) EKG: Report Reviewed (NSR) EMG: Report reviewed (peroneal nerve palsy, no evidence of L5 Radic) Plan 82 year old female who comes in with worsened functional capability at home. Pt had a mechanical fall 1 week ago resulting in left clavicular fx, she was evaluated in ED and discharged home. Since being at home, pt reported inability to perform ADLs independently due to increased pain and weakness. One week prior to admission she reported noticing left foot drop and difficulty ambulating. She reported almost falling at home due to above symptoms. Denied any falls, head trauma. Pt was unable to follow up with ortho as outpatient because she was not able to leave home. She was admitted to [facility] for further evaluation and management. Although right foot with full strength to dorsiflexion, L foot is limited. 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 Moderate facet joint arthropathy. Minimal grade 1 degenerative anterior spondylolisthesis of L5 on S1. Left neural foraminal narrowing. CT head reviewed and no acute changes. NSGY consulted, note reviewed. Patient not interested in surgery. Emg reviewed and discussed, consistent with peroneal nerve palsy. Recommend brace, physical therapy. Orthopedics note reviewed, also recommended brace, does not recommend further orthopedic intervention at this time. May benefit from having BECKY for back pain. Fall precautions, assistive device for ambulation. Monitor blood pressure, maintain normal range. Consider short-term rehabilitation placement.
--- NOTE | 2018-04-06 09:59 | PN ---
Progress Note (short form) - Note Progress Note: PULMONARY Denies shortness of breath or chest pain. UE dopplers negative. C diff Ag +. Vital Signs Period Temp Pulse Resp BP Sys/Jose Pulse Ox Last 24 Hr 97.6 F-98.3 F 76-82 16-20 124-144/68-80 95 Gen: NAD in chair Heart: RRR Lung: decreased breath sounds at the bases Abd: soft, nontender Ext: no edema CBC, BMP 04/06/18 07:00 04/06/18 07:00 Active Medications Acetaminophen (Tylenol -) 650 mg PO Q6H PRN PRN Reason: PAIN LEVEL 1-5 Last Admin: 04/06/18 05:35 Dose: 650 mg Albuterol Sulfate (Ventolin 0.5% -) 1 amp NEB Q6H PRN PRN Reason: SHORTNESS OF BREATH Ascorbic Acid (Vitamin C -) 500 mg PO DAILY [facility] Last Admin: 04/05/18 10:09 Dose: 500 mg Aspirin (Ecotrin -) 81 mg PO DAILY [facility] Last Admin: 04/05/18 10:09 Dose: 81 mg Atorvastatin Calcium (Lipitor -) 10 mg PO HS [facility] Last Admin: 04/05/18 21:52 Dose: 10 mg Budesonide/Formoterol Fumarate (Symbicort 80/4.5mcg -) 2 puff IH BID [facility] Last Admin: 04/05/18 21:56 Dose: 2 puff Calcium/Vitamin D (Oscal 250 Mg+D -) 1 tab PO DAILY [facility] Last Admin: 04/05/18 10:08 Dose: 1 tab Carvedilol (Coreg -) 6.25 mg PO BID [facility] Last Admin: 04/05/18 21:52 Dose: 6.25 mg Cholecalciferol (Vitamin D3 -) 1,000 unit PO DAILY [facility] Last Admin: 04/05/18 10:09 Dose: 1,000 unit Emollient Ointment (Aquaphor -) 1 applic TP BID PRN PRN Reason: DRY SKIN Last Admin: 04/05/18 17:02 Dose: 1 applic Ferrous Sulfate (Feosol -) 325 mg PO DAILY [facility] Last Admin: 04/05/18 10:09 Dose: 325 mg Heparin Sodium (Porcine) (Heparin -) 5,000 unit SQ BID [facility] Last Admin: 10/10/18 21:52 Dose: 5,000 unit Sodium Chloride (Normal Saline -) 1,000 mls @ 42 mls/hr IV ASDIR [facility] Last Admin: 04/05/18 17:00 Dose: 42 mls/hr Levofloxacin (Levaquin 250 Mg Premixed Ivpb -) 250 mg in 50 mls @ 50 mls/hr IVPB DAILY [facility] Stop: 04/07/18 10:59 Last Admin: 04/05/18 14:42 Dose: 50 mls/hr Lactobacillus Acidophilus (Bacid -) 1 tab PO DAILY [facility] Last Admin: 04/05/18 14:42 Dose: 1 tab Latanoprost (Xalatan 0.005% Eye Drops -) 1 drop OU HS [facility] Last Admin: 04/05/18 21:56 Dose: 1 drop Levothyroxine Sodium (Synthroid -) 25 mcg PO 0700 [facility] Last Admin: 04/06/18 06:10 Dose: 25 mcg Metformin HCl (Glucophage -) 500 mg PO BIDAC [facility] Last Admin: 04/06/18 06:10 Dose: 500 mg Yhzvv-9-Cnpf Ethyl Esters (Lovaza -) 2 gm PO BID [facility] Last Admin: 04/05/18 21:52 Dose: 2 gm Ranitidine HCl (Zantac -) 150 mg PO DAILY [facility] Last Admin: 04/05/18 10:09 Dose: 150 mg Sertraline HCl (Zoloft -) 25 mg PO HS [facility] Last Admin: 04/05/18 22:43 Dose: 25 mg Sitagliptin Phosphate (Januvia -) 100 mg PO 0700 [facility] Last Admin: 04/06/18 06:10 Dose: 100 mg Vancomycin HCl (Vancomycin Oral Solution) 125 mg PO Q6HPO [facility] Last Admin: 04/06/18 05:40 Dose: 125 mg A/P Elevated D-dimer Recent fall with Left Clavicular Fracture L5-S1 Spinal Stenosis/Radiculopathy Aortic Stenosis s/p TAVR h/o bio MVR COPD HTN Hypercholesterolemia Hypothyroidism HONEY - pt with recent trauma and significant bruising which may explain her elevated d-dimer - clinically low suspicion but will order upper extremity dopplers to r/o DVT - continue inhaled bronchodilators as needed - Symbicort while inpatient - DVT prophylaxis Problem List - Problems (1) Elevated d-dimer Code(s): R79.89 - OTHER SPECIFIED ABNORMAL FINDINGS OF BLOOD CHEMISTRY (2) Lumbar back pain with radiculopathy affecting left lower extremity Code(s): M54.16 - RADICULOPATHY, LUMBAR REGION (3) Clavicle fracture Code(s): S42.009A - FRACTURE OF UNSP PART OF UNSP CLAVICLE, INIT FOR CLOS FX Qualifiers: Encounter type: subsequent encounter Clavicle location: lateral end Fracture type: closed Fracture alignment: displaced Laterality: left (4) Hyperlipidemia Code(s): E78.5 - HYPERLIPIDEMIA, UNSPECIFIED Qualifiers: Hyperlipidemia type: pure hypercholesterolemia Qualified Code(s): E78.00 - Pure hypercholesterolemia, unspecified; E78.0 - Pure hypercholesterolemia (5) Hypothyroid Code(s): E03.9 - HYPOTHYROIDISM, UNSPECIFIED Qualifiers: Hypothyroidism type: unspecified Qualified Code(s): E03.9 - Hypothyroidism , unspecified (6) Mitral valve regurgitation Code(s): I34.0 - NONRHEUMATIC MITRAL (VALVE) INSUFFICIENCY Qualifiers: Cardiac valve disease etiology: nonrheumatic Qualified Code(s): I34.0 - Nonrheumatic mitral (valve) insufficiency (7) S/P TAVR (transcatheter aortic valve replacement) Code(s): Z95.2 - PRESENCE OF PROSTHETIC HEART VALVE
--- NOTE | 2018-04-06 10:14 | PN ---
Progress Note, Physician History of Present Illness: Left foot drop improving slightly, LBP improved, denies chest pain, dyspnea, and pain, diarrhea since resolved. - Current Medication List Current Medications: Active Medications Acetaminophen (Tylenol -) 650 mg PO Q6H PRN PRN Reason: PAIN LEVEL 1-5 Last Admin: 04/06/18 05:35 Dose: 650 mg Albuterol Sulfate (Ventolin 0.5% -) 1 amp NEB Q6H PRN PRN Reason: SHORTNESS OF BREATH Ascorbic Acid (Vitamin C -) 500 mg PO DAILY [facility] Last Admin: 04/05/18 10:09 Dose: 500 mg Aspirin (Ecotrin -) 81 mg PO DAILY [facility] Last Admin: 04/05/18 10:09 Dose: 81 mg Atorvastatin Calcium (Lipitor -) 10 mg PO HS [facility] Last Admin: 04/05/18 21:52 Dose: 10 mg Budesonide/Formoterol Fumarate (Symbicort 80/4.5mcg -) 2 puff IH BID [facility] Last Admin: 04/05/18 21:56 Dose: 2 puff Calcium/Vitamin D (Oscal 250 Mg+D -) 1 tab PO DAILY [facility] Last Admin: 04/05/18 10:08 Dose: 1 tab Carvedilol (Coreg -) 6.25 mg PO BID [facility] Last Admin: 04/05/18 21:52 Dose: 6.25 mg Cholecalciferol (Vitamin D3 -) 1,000 unit PO DAILY [facility] Last Admin: 04/05/18 10:09 Dose: 1,000 unit Emollient Ointment (Aquaphor -) 1 applic TP BID PRN PRN Reason: DRY SKIN Last Admin: 04/05/18 17:02 Dose: 1 applic Ferrous Sulfate (Feosol -) 325 mg PO DAILY [facility] Last Admin: 04/05/18 10:09 Dose: 325 mg Heparin Sodium (Porcine) (Heparin -) 5,000 unit SQ BID [facility] Last Admin: 04/05/18 21:52 Dose: 5,000 unit Sodium Chloride (Normal Saline -) 1,000 mls @ 42 mls/hr IV ASDIR [facility] Last Admin: 04/05/18 17:00 Dose: 42 mls/hr Levofloxacin (Levaquin 250 Mg Premixed Ivpb -) 250 mg in 50 mls @ 50 mls/hr IVPB DAILY [facility] Stop: 04/07/18 10:59 Last Admin: 04/05/18 14:42 Dose: 50 mls/hr Lactobacillus Acidophilus (Bacid -) 1 tab PO DAILY [facility] Last Admin: 04/05/18 14:42 Dose: 1 tab Latanoprost (Xalatan 0.005% Eye Drops -) 1 drop OU HS [facility] Last Admin: 04/05/18 21:56 Dose: 1 drop Levothyroxine Sodium (Synthroid -) 25 mcg PO 0700 [facility] Last Admin: 04/06/18 06:10 Dose: 25 mcg Metformin HCl (Glucophage -) 500 mg PO BIDAC [facility] Last Admin: 04/06/18 06:10 Dose: 500 mg Wfmyl-6-Srrt Ethyl Esters (Lovaza -) 2 gm PO BID [facility] Last Admin: 04/05/18 21:52 Dose: 2 gm Ranitidine HCl (Zantac -) 150 mg PO DAILY [facility] Last Admin: 04/05/18 10:09 Dose: 150 mg Sertraline HCl (Zoloft -) 25 mg PO HS [facility] Last Admin: 04/05/18 22:43 Dose: 25 mg Sitagliptin Phosphate (Januvia -) 100 mg PO 0700 [facility] Last Admin: 04/06/18 06:10 Dose: 100 mg Vancomycin HCl (Vancomycin Oral Solution) 125 mg PO Q6HPO [facility] Last Admin: 04/06/18 05:40 Dose: 125 mg - Objective Vital Signs: Vital Signs Temperature 98.3 F 04/06/18 08:57 Pulse Rate 79 04/06/18 08:57 Respiratory Rate 16 04/06/18 08:57 Blood Pressure 134/71 04/06/18 08:57 O2 Sat by Pulse Oximetry (%) 95 04/05/18 21:00 Constitutional: Yes: No Distress, Calm, Thin Neck: Yes: Supple Cardiovascular: Yes: Regular Rate and Rhythm Respiratory: Yes: Regular, Diminished Gastrointestinal: Yes: Normal Bowel Sounds, Soft Edema: No Labs: CBC, BMP 04/06/18 07:00 04/06/18 07:00 Problem List - Problems (1) Lumbar back pain with radiculopathy affecting left lower extremity Code(s): M54.16 - RADICULOPATHY, LUMBAR REGION (2) Foot drop, left Code(s): M21.372 - FOOT DROP, LEFT FOOT (3) S/P mitral valve replacement Code(s): Z95.2 - PRESENCE OF PROSTHETIC HEART VALVE (4) Spondylolisthesis at L5-S1 level Code(s): M43.17 - SPONDYLOLISTHESIS, LUMBOSACRAL REGION (5) T2DM (type 2 diabetes mellitus) Code(s): E11.9 - TYPE 2 DIABETES MELLITUS WITHOUT COMPLICATIONS Qualifiers: Diabetes mellitus [employer] insulin use: without detention use (6) CAD (coronary artery disease) Code(s): I25.10 - ATHSCL HEART DISEASE OF [place] CORONARY ARTERY W/O ANG PCTRS Qualifiers: Coronary Disease-Associated Artery/Lesion type: [place] artery [place] vs. transplanted heart: [place] heart Associated angina: without angina Qualified Code(s): I25.10 - Atherosclerotic heart disease of [place] coronary artery without angina pectoris (7) HTN (hypertension) Code(s): I10 - ESSENTIAL (PRIMARY) HYPERTENSION Qualifiers: Hypertension type: essential hypertension Qualified Code(s): I10 - Essential (primary) hypertension (8) Hyperlipidemia Code(s): E78.5 - HYPERLIPIDEMIA, UNSPECIFIED Qualifiers: Hyperlipidemia type: pure hypercholesterolemia Qualified Code(s): E78.00 - Pure hypercholesterolemia, unspecified; E78.0 - Pure hypercholesterolemia (9) Hypothyroid Code(s): E03.9 - HYPOTHYROIDISM, UNSPECIFIED Qualifiers: Hypothyroidism type: unspecified Qualified Code(s): E03.9 - Hypothyroidism , unspecified (10) Pulmonary hypertension Code(s): I27.2 - OTHER SECONDARY PULMONARY HYPERTENSION * DO NOT USE * (11) S/P TAVR (transcatheter aortic valve replacement) Code(s): Z95.2 - PRESENCE OF PROSTHETIC HEART VALVE Assessment/Plan December 22, 2017 Echo: Normal LV size with mildly decreased LV fxn, bioprosthetic AV and MV is seen, mild TR RVSP 40 mmHg 1. L5-S1 spinal stenosis and peroneal nerve palsy 2. Severe aortic valve disease () s/p TAVR 3. s/p mitral valve bioprosthetic replacement, LV myomectomy and ALFREDO closure with Atriclip 10/2017 for ruptured mitral chordae with mod-severe mitral valve regurgitation 4. Hypertension 5. Hypercholesterolemia 6. COPD 7. Sleep apnea 8. Anemia 9. Diabetes mellitus 10. Hypothyroidism 11. + c. diff Ag, enterococcus colonization in urine 12. Recent fall with Left Clavicular Fracture PLAN: 1. Given multiple co-morbidities and complex medical history agree with trial of epidural steroid injections as opposed to surgical intervention 2. Continue Carvedilol 6.25 bid, ASA 81 qd, Lipitor 10 qd Lovaza 2 bid 3. Recommended brace, physical therapy. May consider BECKY for back pain 4. Oral vanco and Levaquin course, DVT and GI prophylaxis
--- NOTE | 2018-04-06 10:48 | PN ---
Progress Note (short form) - Note Progress Note: Ortho Pt seen and examined s/p left distal clavicle fx, right foot drop Selected Entries 04/06/18 08:57 Temperature 98.3 F Pulse Rate 79 Respiratory 16 Rate Blood Pressure 134/71 decr pain, incr rom nvi + foot drop a/p PT sling for comfort ROM exercises suraj f/u AFO d/w Dr. Rodriguez
[2018-04-06] MEDS: CARVEDILOL 6.25 MG TABLET (FP) PO SCH ×2 (10:58→21:23)
[2018-04-06] MEDS: ASCORBIC ACID 500 MG TABLET (FP) PO SCH (10:58)
[2018-04-06] MEDS: ASPIRIN COATED 81 MG TABLET.EC PO SCH (10:58)
[2018-04-06] MEDS: LACTOBACILLUS ACIDOPHILUS 1 TABLET PO SCH (10:58)
[2018-04-06] MEDS: FERROUS SO4 325 MG TABLET (FP) PO SCH (10:58)
[2018-04-06] MEDS: CALCIUM 250MG/VIT-D 125 UNITS 1 COMBO TABLET PO SCH (10:58)
[2018-04-06] MEDS: CHOLECALCIFEROL (VITAMIN D3) 1,000 UNIT TABLET (FP) PO SCH (10:58)
[2018-04-06] MEDS: RANITIDINE HCL 150 MG TABLET (FP) PO SCH (10:58)
[2018-04-06] MEDS: OMEGA-3 ACID ETHYL ESTERS (FATTY-ACIDS) 1 GM CAPSULE (FP) PO SCH ×2 (10:59→21:24)
[2018-04-06] MEDS: HEPARIN NA (PORCINE) 5,000 UNITS/ML 1ML VIAL SQ SCH ×2 (10:59→21:23)
[2018-04-06] MEDS: BUDESONIDE/FORMETEROL FUMARATE 80/4.5 mcg INHALER IH SCH ×2 (11:00→21:24)
--- NOTE | 2018-04-06 14:32 | PN ---
Progress Note, Physician Chief Complaint: Pt sitting in chair. reports feel better today. tolerating diet. reports back pain is controlled. denies any chest pain, sob - Current Medication List Current Medications: Active Medications Acetaminophen (Tylenol -) 650 mg PO Q6H PRN PRN Reason: PAIN LEVEL 1-5 Last Admin: 04/06/18 05:35 Dose: 650 mg Albuterol Sulfate (Ventolin 0.5% -) 1 amp NEB Q6H PRN PRN Reason: SHORTNESS OF BREATH Ascorbic Acid (Vitamin C -) 500 mg PO DAILY [facility] Last Admin: 04/06/18 10:58 Dose: 500 mg Aspirin (Ecotrin -) 81 mg PO DAILY [facility] Last Admin: 04/06/18 10:58 Dose: 81 mg Atorvastatin Calcium (Lipitor -) 10 mg PO HS [facility] Last Admin: 04/05/18 21:52 Dose: 10 mg Budesonide/Formoterol Fumarate (Symbicort 80/4.5mcg -) 2 puff IH BID [facility] Last Admin: 04/06/18 11:00 Dose: 2 puff Calcium/Vitamin D (Oscal 250 Mg+D -) 1 tab PO DAILY [facility] Last Admin: 04/06/18 10:58 Dose: 1 tab Carvedilol (Coreg -) 6.25 mg PO BID [facility] Last Admin: 04/06/18 10:58 Dose: 6.25 mg Cholecalciferol (Vitamin D3 -) 1,000 unit PO DAILY [facility] Last Admin: 04/06/18 10:58 Dose: 1,000 unit Emollient Ointment (Aquaphor -) 1 applic TP BID PRN PRN Reason: DRY SKIN Last Admin: 04/05/18 17:02 Dose: 1 applic Ferrous Sulfate (Feosol -) 325 mg PO DAILY [facility] Last Admin: 04/06/18 10:58 Dose: 325 mg Heparin Sodium (Porcine) (Heparin -) 5,000 unit SQ BID [facility] Last Admin: 04/06/18 10:59 Dose: 5,000 unit Levofloxacin (Levaquin 250 Mg Premixed Ivpb -) 250 mg in 50 mls @ 50 mls/hr IVPB DAILY [facility] Stop: 04/07/18 10:59 Last Admin: 04/06/18 10:58 Dose: 50 mls/hr Lactobacillus Acidophilus (Bacid -) 1 tab PO DAILY [facility] Last Admin: 04/06/18 10:58 Dose: 1 tab Latanoprost (Xalatan 0.005% Eye Drops -) 1 drop OU HS [facility] Last Admin: 04/05/18 21:56 Dose: 1 drop Levothyroxine Sodium (Synthroid -) 25 mcg PO 0700 [facility] Last Admin: 04/06/18 06:10 Dose: 25 mcg Metformin HCl (Glucophage -) 500 mg PO BIDAC [facility] Last Admin: 04/06/18 06:10 Dose: 500 mg Wndel-0-Ppe[place] Ethyl Esters (Lovaza -) 2 gm PO BID [facility] Last Admin: 04/06/18 10:59 Dose: 2 gm Ranitidine HCl (Zantac -) 150 mg PO DAILY [facility] Last Admin: 04/06/18 10:58 Dose: 150 mg Sertraline HCl (Zoloft -) 25 mg PO HS [facility] Last Admin: 04/05/18 22:43 Dose: 25 mg Sitagliptin Phosphate (Januvia -) 100 mg PO 0700 [facility] Last Admin: 04/06/18 06:10 Dose: 100 mg Vancomycin HCl (Vancomycin Oral Solution) 125 mg PO Q6HPO [facility] Last Admin: 04/06/18 12:25 Dose: 125 mg - Objective Vital Signs: Vital Signs Temperature 98.3 F 04/06/18 08:57 Pulse Rate 79 04/06/18 08:57 Respiratory Rate 16 04/06/18 09:00 Blood Pressure 134/71 04/06/18 08:57 O2 Sat by Pulse Oximetry (%) 95 04/06/18 09:00 Constitutional: Yes: Well Nourished, No Distress, Calm Cardiovascular: Yes: WNL, Regular Rate and Rhythm Respiratory: Yes: WNL, Regular, CTA Bilaterally. No: Accessory Muscle Use, Rhonchi, SOB, Tachypnea, Wheezes Gastrointestinal: Yes: WNL, Normal Bowel Sounds, Soft, Abdomen, Obese. No: Distention, Tenderness Genitourinary: Yes: WNL Musculoskeletal: Yes: Back Pain Edema: No Neurological: Yes: WNL, Alert, Oriented Psychiatric: Yes: WNL, Alert, Oriented Labs: CBC, BMP 04/06/18 07:00 04/06/18 07:00 Assessment/Plan (1) Foot drop, left Assessment/Plan: acute CT L/S- grade 1 degenerative anterior spondylolisthesis of L5 on S1. Left neural foraminal narrowing. EMG without radiculopathy, consistent w/ peroneal nerve palsy PT/AFO brace recommended by ortho, neuro, nsgy,manager servicing pain management consult appreciated- BECKY outpt nsgy/neurology consult appreciated Code(s): M21.372 - FOOT DROP, LEFT FOOT (2) Spondylolisthesis at L5-S1 level Assessment/Plan: as above Code(s): M43.17 - SPONDYLOLISTHESIS, LUMBOSACRAL REGION (3) Weakness Assessment/Plan: 2/2 mechanical fall , poor po intake head CT neg as above Code(s): R53.1 - WEAKNESS (4) Clavicle fracture Assessment/Plan: stable ortho evaluated- no surgical intervention continue sling for support adequate pain control Code(s): S42.009A - FRACTURE OF UNSP PART OF UNSP CLAVICLE, INIT FOR CLOS FX Qualifiers: Encounter type: subsequent encounter Clavicle location: lateral end Fracture type: closed Fracture alignment: displaced Laterality: left (5) Osteoarthritis Assessment/Plan: continue vitamin D Code(s): M19.90 - UNSPECIFIED OSTEOARTHRITIS, UNSPECIFIED SITE Qualifiers: Osteoarthritis location: multiple joints Osteoarthritis type: primary Qualified Code(s): M15.0 - Primary generalized (osteo)arthritis (6) Elevated d-dimer Assessment/Plan: ruled out b/l le/ue duplex neg for dvt low suspicion of pe pulm consult appreciated Code(s): R79.89 - OTHER SPECIFIED ABNORMAL FINDINGS OF BLOOD CHEMISTRY (7) S/P TAVR (transcatheter aortic valve replacement) Assessment/Plan: stable, s/p tavr 08/13 Code(s): Z95.2 - PRESENCE OF PROSTHETIC HEART VALVE (8) S/P mitral valve replacement Assessment/Plan: stable, s/p bioprosthetic mvr 11/11 Code(s): Z95.2 - PRESENCE OF PROSTHETIC HEART VALVE (9) HTN (hypertension) Assessment/Plan: controlled continue carvedilol Code(s): I10 - ESSENTIAL (PRIMARY) HYPERTENSION Qualifiers: Hypertension type: essential hypertension Qualified Code(s): I10 - Essential (primary) hypertension (10) Hypothyroid Assessment/Plan: chronic continue synthroid Code(s): E03.9 - HYPOTHYROIDISM, UNSPECIFIED Qualifiers: Hypothyroidism type: unspecified Qualified Code(s): E03.9 - Hypothyroidism , unspecified (11) Hyperlipidemia Assessment/Plan: Controlled Continue lipitor, lovaza continue lifestyle modifications Code(s): E78.5 - HYPERLIPIDEMIA, UNSPECIFIED (12) GERD (gastroesophageal reflux disease) Assessment/Plan: Stable Continue zantac Code(s): K21.9 - GASTRO-ESOPHAGEAL REFLUX DISEASE WITHOUT ESOPHAGITIS Qualifiers: Esophagitis presence: without esophagitis Qualified Code(s): K21.9 - Gastro -esophageal reflux disease without esophagitis (13) Diabetes Assessment/Plan: controlled continue metformin/januvia Code(s): E11.9 - TYPE 2 DIABETES MELLITUS WITHOUT COMPLICATIONS Qualifiers: Diabetes mellitus type: type 2 Diabetes mellitus complication status: with ophthalmic complications Diabetes mellitus complication detail: with diabetic retinopathy Diabetes mellitus correction insulin use: without correction use (14) CAD (coronary artery disease) Assessment/Plan: Stable continue asa/statin Code(s): I25.10 - ATHSCL HEART DISEASE OF [place] CORONARY ARTERY W/O ANG PCTRS Qualifiers: Coronary Disease-Associated Artery/Lesion type: [place] artery [place] vs. transplanted heart: [place] heart Associated angina: without angina Qualified Code(s): I25.10 - Atherosclerotic heart disease of [place] coronary artery without angina pectoris (15) COPD (chronic obstructive pulmonary disease) Assessment/Plan: chronic continue breo, albuterol Code(s): J44.9 - CHRONIC OBSTRUCTIVE PULMONARY DISEASE, UNSPECIFIED Qualifiers: COPD type: unspecified COPD Qualified Code(s): J44.9 - Chronic obstructive pulmonary disease, unspecified (16) Hypotension Assessment/Plan: resolved Code(s): I95.9 - HYPOTENSION, UNSPECIFIED (17) Clostridium difficile colitis Assessment/Plan: improving, bms less po vanco day 3 diet advanced monitor Code(s): A04.72 - ENTEROCOLITIS D/T CLOSTRIDIUM DIFFICILE, NOT SPCF RECUR (18) Chest pain Assessment/Plan: resolved, no acs cardiology following Code(s): R07.9 - CHEST PAIN, UNSPECIFIED (19) Nausea Assessment/Plan: resolved Abd/pelvic CT w/ gall stones, no cholecysitis/obstruction Code(s): R11.0 - NAUSEA (20) UTI (urinary tract infection) Assessment/Plan: symptomatic, UC growing enterococcus faecalis levaquin iv day 2 Code(s): N39.0 - URINARY TRACT INFECTION, SITE NOT SPECIFIED Qualifiers: Urinary tract infection type: acute cystitis Hematuria presence: without hematuria Qualified Code(s): N30.00 - Acute cystitis without hematuria Dispo: SNF, awaiting AFO brace, CM/PANCHITO, nurse assistant general manager informed of plan.
[2018-04-06] MEDS ORDERED: PT OWN MED DRAWER 7, Y5N ONE (21:19)
[2018-04-06] MEDS: ATORVASTATIN CA 10 MG TABLET (FP) PO SCH (21:23)
[2018-04-06] MEDS: SERTRALINE HCL 25 MG TABLET (FP) PO SCH (21:24)
[2018-04-06] MEDS: LATANOPROST 0.005% OPHTH SOLN 2.5ML BOTTLE OU SCH (21:24)
[2018-04-07] MEDS ORDERED: PT OWN MED DRAWER 7, Y5N ONE (00:19)
[2018-04-07] MEDS: VANCOMYCIN 250 MG/5 ML ORAL SOLUTION PO SCH ×4 (00:22→17:27)
[2018-04-07] MEDS: sitaGLIPtin PHOSPHATE 50 MG TABLET PO SCH (06:07)
[2018-04-07] MEDS: metFORMIN HCL 500 MG TABLET (FP) PO SCH ×2 (06:07→17:27)
[2018-04-07] MEDS: LEVOTHYROXINE NA 25 MCG TABLET (FP) PO SCH (06:07)
[2018-04-07 07:36] LABS: BASO % 0.5 % (0-2.0); EOS % 2.4 % (0-4.5); HEMATOCRIT 33.2 % (32.4-45.2); LYMPH % 23.1 % (8-40); MCH 28.7 pg (25.7-33.7); MCHC 33.1 g/dl (32.0-36.0); MEAN CELL VOLUME 86.7 fl (80-96); MEAN PLT VOLUME 7.5 fl (7.5-11.1); MONO % 10.6 % (3.8-10.2); NEUT % 63.4 % (42.8-82.8); PLATELET COUNT 263 K/MM3 (134-434); RBC 3.82 M/mm3 (3.60-5.2); RDW 14.7 % (11.6-15.6); WHITE BLOOD COUNT 7.5 K/mm3 (4.0-10.0)
[2018-04-07 07:50] LABS: ANION GAP 6 MMOL/L (8-16); BLOOD UREA NITROGEN 15 mg/dL (7-18); CHLORIDE 104 mmol/L (98-107); CO2 28 mmol/L (21-32); CREATININE 0.6 mg/dL (0.55-1.3); GLUCOSE,RANDOM 101 mg/dL (74-106); POTASSIUM 4.3 mmol/L (3.5-5.1); SODIUM 139 mmol/L (136-145)
--- NOTE | 2018-04-07 09:15 | PN ---
Progress Note (short form) - Note Progress Note: Neurology History of Present Illness History of Present Illness: 82 year old female who comes in with worsened functional capability at home. Pt had a mechanical fall 1 week ago resulting in left clavicular fx, she was evaluated in ED and discharged home. Since being at home, pt reported inability to perform ADLs independently due to increased pain and weakness. One weke prior to admission she reported noticing left foot drop and difficulty ambulating. She reported almost falling at home due to above symptoms. Denied any falls, head trauma. Pt was unable to follow up with ortho as outpatient because she was not able to leave home. She was admitted to [facility] for further evaluation and management. Although right foot with full strength to dorsiflexion, L foot is limited. 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 Moderate facet joint arthropathy. Minimal grade 1 degenerative anterior spondylolisthesis of L5 on S1. Left neural foraminal narrowing. NSGY consulted, note reviewed, recommended considering further medical mgmt. Emg reviewed and discussed, consistent with peroneal nerve palsy. orthopedic note reviewed, brace recommended, no further intervention required as per Dr. Rodriguez. She is in good spirits and is moving her left foot slightly more than prior but no significant improvement. We'll likely require short-term rehabilitation along with assistive device. Neurologically stable otherwise and no new events. - Allergies Allergies/Adverse Reactions: Allergies Allergy/AdvReac Type Severity Reaction Status Date / Time quinine [Quinine] Allergy Mild Rash Verified 04/02/18 15:11 Sulfa (Sulfonamide Allergy Mild Rash Verified 04/02/18 15:11 Antibiotics) [Sulfa(Sulfonamide Antibiotics)] Active Medications Acetaminophen (Tylenol -) 650 mg PO Q6H PRN PRN Reason: PAIN LEVEL 1-5 Last Admin: 04/06/18 05:35 Dose: 650 mg Albuterol Sulfate (Ventolin 0.5% -) 1 amp NEB Q6H PRN PRN Reason: SHORTNESS OF BREATH Ascorbic Acid (Vitamin C -) 500 mg PO DAILY [facility] Last Admin: 04/06/18 10:58 Dose: 500 mg Aspirin (Ecotrin -) 81 mg PO DAILY [facility] Last Admin: 04/06/18 10:58 Dose: 81 mg Atorvastatin Calcium (Lipitor -) 10 mg PO HS [facility] Last Admin: 04/06/18 21:23 Dose: 10 mg Budesonide/Formoterol Fumarate (Symbicort 80/4.5mcg -) 2 puff IH BID [facility] Last Admin: 04/06/18 21:24 Dose: 2 puff Calcium/Vitamin D (Oscal 250 Mg+D -) 1 tab PO DAILY [facility] Last Admin: 04/06/18 10:58 Dose: 1 tab Carvedilol (Coreg -) 6.25 mg PO BID [facility] Last Admin: 04/06/18 21:23 Dose: 6.25 mg Cholecalciferol (Vitamin D3 -) 1,000 unit PO DAILY [facility] Last Admin: 04/06/18 10:58 Dose: 1,000 unit Emollient Ointment (Aquaphor -) 1 applic TP BID PRN PRN Reason: DRY SKIN Last Admin: 04/05/18 17:02 Dose: 1 applic Ferrous Sulfate (Feosol -) 325 mg PO DAILY [facility] Last Admin: 04/06/18 10:58 Dose: 325 mg Heparin Sodium (Porcine) (Heparin -) 5,000 unit SQ BID [facility] Last Admin: 04/06/18 21:23 Dose: 5,000 unit Levofloxacin (Levaquin 250 Mg Premixed Ivpb -) 250 mg in 50 mls @ 50 mls/hr IVPB DAILY [facility] Stop: 04/07/18 10:59 Last Admin: 04/06/18 10:58 Dose: 50 mls/hr Lactobacillus Acidophilus (Bacid -) 1 tab PO DAILY [facility] Last Admin: 04/06/18 10:58 Dose: 1 tab Latanoprost (Xalatan 0.005% Eye Drops -) 1 drop OU HS [facility] Last Admin: 04/06/18 21:24 Dose: 1 drop Levothyroxine Sodium (Synthroid -) 25 mcg PO 0700 [facility] Last Admin: 04/07/18 06:07 Dose: 25 mcg Metformin HCl (Glucophage -) 500 mg PO BIDAC [facility] Last Admin: 04/07/18 06:07 Dose: 500 mg Kyojb-3-Kjuu Ethyl Esters (Lovaza -) 2 gm PO BID [facility] Last Admin: 04/06/18 21:24 Dose: 2 gm Ranitidine HCl (Zantac -) 150 mg PO DAILY [facility] Last Admin: 04/06/18 10:58 Dose: 150 mg Sertraline HCl (Zoloft -) 25 mg PO HS [facility] Last Admin: 04/06/18 21:24 Dose: 25 mg Sitagliptin Phosphate (Januvia -) 100 mg PO 0700 [facility] Last Admin: 04/07/18 06:07 Dose: 100 mg Vancomycin HCl (Vancomycin Oral Solution) 125 mg PO Q6HPO [facility] Last Admin: 04/07/18 06:07 Dose: 125 mg Physical Examination Vital Signs Period Temp Pulse Resp BP Sys/Jose Pulse Ox Last 24 Hr 97.4 F-97.9 F 80-85 17-20 115-136/65-73 96 Gen: Awake, alert, responds to questions Card: RRR, nml S1,S2 Resp: Normal symmetric effort, lungs clear to auscultation Abdomen: Soft, nontender, bowel sounds active Musculoskeletal: Adequate range of motion without significant deformity Head atraumatic and normocephalic CN: PERRL, EOMI intact, no apparent facial droop, no abnormalities in facial sensation, palate elevates, uvula and tongue midline Motor: L foot dorsiflexion limited 1+/5, otherwise grossly 5-/5 throughout Sensory: Intact to Temperature, light touch Coordination: Intact on eytfnk-[id number]-[id number] testing Gait: deferred CBCD WBC 7.5 K/mm3 (4.0-10.0) 04/07/18 06:50 RBC 3.82 M/mm3 (3.60-5.2) 04/07/18 06:50 Hgb 11.0 GM/dL (10.7-15.3) 04/07/18 06:50 Hct 33.2 % (32.4-45.2) 04/07/18 06:50 MCV 86.7 fl (80-96) 04/07/18 06:50 MCHC 33.1 g/dl (32.0-36.0) 04/07/18 06:50 RDW 14.7 % (11.6-15.6) 04/07/18 06:50 Plt Count 263 K/MM3 (134-434) 04/07/18 06:50 MPV 7.5 fl (7.5-11.1) 04/07/18 06:50 CMP Sodium 139 mmol/L (136-145) 04/07/18 06:50 Potassium 4.3 mmol/L (3.5-5.1) 04/07/18 06:50 Chloride 104 mmol/L (98-107) 04/07/18 06:50 Carbon Dioxide 28 mmol/L (21-32) 04/07/18 06:50 Anion Gap 6 MMOL/L (8-16) L 04/07/18 06:50 BUN 15 mg/dL (7-18) 04/07/18 06:50 Creatinine 0.6 mg/dL (0.55-1.3) 04/07/18 06:50 Creat Clearance w eGFR > 60 (>60) 04/07/18 06:50 Random Glucose 101 mg/dL (74-106) 04/07/18 06:50 Calcium 9.0 mg/dL (8.5-10.1) 04/07/18 06:50 Total Bilirubin 0.5 mg/dL (0.2-1) 04/05/18 06:30 AST 16 U/L (15-37) 04/05/18 06:30 ALT 13 U/L (13-61) 04/05/18 06:30 Alkaline Phosphatase 73 U/L (45-117) 04/05/18 06:30 Total Protein 6.6 g/dl (6.4-8.2) 04/05/18 06:30 Albumin 3.0 g/dl (3.4-5.0) L 04/05/18 06:30 CARDIAC ENZYMES Troponin I < 0.02 ng/ml (0.00-0.05) 04/04/18 12:18 Imaging - Results Cat Scan: Report Reviewed (Lumbar/spine- L5-S1. 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 Moderate facet joint arthropathy. Minimal grade 1 degenerative anterior spondylolisthesis of L5 on S1. Left neural foraminal narrowing. Head: no acute findings cervical spine: no acute findings) Ultrasound: Report Reviewed (b/l duplex neg dvt) EKG: Report Reviewed (NSR) EMG: Report reviewed (peroneal nerve palsy, no evidence of L5 Radic) Plan 82 year old female who comes in with worsened functional capability at home. Pt had a mechanical fall 1 week ago resulting in left clavicular fx, she was evaluated in ED and discharged home. Since being at home, pt reported inability to perform ADLs independently due to increased pain and weakness. One week prior to admission she reported noticing left foot drop and difficulty ambulating. She reported almost falling at home due to above symptoms. Denied any falls, head trauma. Pt was unable to follow up with ortho as outpatient because she was not able to leave home. She was admitted to [facility] for further evaluation and management. Although right foot with full strength to dorsiflexion, L foot is limited. 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 Moderate facet joint arthropathy. Minimal grade 1 degenerative anterior spondylolisthesis of L5 on S1. Left neural foraminal narrowing. CT head reviewed and no acute changes. NSGY consulted, note reviewed. Patient not interested in surgery. Emg reviewed and discussed, consistent with peroneal nerve palsy. Recommend brace, physical therapy. Orthopedics note reviewed, also recommended brace, does not recommend further orthopedic intervention at this time. May benefit from having BECKY for back pain. Fall precautions, assistive device for ambulation. Monitor blood pressure, maintain normal range. Consider short-term rehabilitation placement. Dispo per primary team. Neurologically stable at this time
[2018-04-07] MEDS: FERROUS SO4 325 MG TABLET (FP) PO SCH (10:26)
[2018-04-07] MEDS: ASPIRIN COATED 81 MG TABLET.EC PO SCH (10:26)
[2018-04-07] MEDS: ASCORBIC ACID 500 MG TABLET (FP) PO SCH (10:26)
[2018-04-07] MEDS: RANITIDINE HCL 150 MG TABLET (FP) PO SCH (10:26)
[2018-04-07] MEDS: CARVEDILOL 6.25 MG TABLET (FP) PO SCH (10:26)
[2018-04-07] MEDS: LACTOBACILLUS ACIDOPHILUS 1 TABLET PO SCH (10:26)
[2018-04-07] MEDS: CHOLECALCIFEROL (VITAMIN D3) 1,000 UNIT TABLET (FP) PO SCH (10:27)
[2018-04-07] MEDS: OMEGA-3 ACID ETHYL ESTERS (FATTY-ACIDS) 1 GM CAPSULE (FP) PO SCH (10:27)
[2018-04-07] MEDS: HEPARIN NA (PORCINE) 5,000 UNITS/ML 1ML VIAL SQ SCH (10:27)
[2018-04-07] MEDS: CALCIUM 250MG/VIT-D 125 UNITS 1 COMBO TABLET PO SCH (10:27)
[2018-04-07] MEDS: BUDESONIDE/FORMETEROL FUMARATE 80/4.5 mcg INHALER IH SCH (10:28)
[2018-04-07] MEDS: ACETAMINOPHEN 325 MG TABLET (FP) PO PRN (11:20)
--- NOTE | 2018-04-07 12:10 | PN ---
Progress Note (short form) - Note Progress Note: PULMONARY Denies shortness of breath or chest pain oob to chair VSS/afebrile Gen: NAD in chair Heart: RRR Lung: decreased breath sounds at the bases Abd: soft, nontender Ext: no edema Active Medications reviewed chart reviewed A/P Elevated D-dimer Recent fall with Left Clavicular Fracture L5-S1 Spinal Stenosis/Radiculopathy Aortic Stenosis s/p TAVR h/o bio MVR COPD HTN Hypercholesterolemia Hypothyroidism HONEY - upper extremity dopplers negative - continue inhaled bronchodilators as needed - Symbicort while inpatient - DVT proph Sekou JOHNSON MD
--- NOTE | 2018-04-07 12:28 | PN ---
Progress Note, Physician Chief Complaint: Pt sitting in chair. reports feel better today. tolerating diet. reports back pain is controlled. denies any chest pain, sob - Current Medication List Current Medications: Active Medications Acetaminophen (Tylenol -) 650 mg PO Q6H PRN PRN Reason: PAIN LEVEL 1-5 Last Admin: 04/07/18 11:20 Dose: 650 mg Albuterol Sulfate (Ventolin 0.5% -) 1 amp NEB Q6H PRN PRN Reason: SHORTNESS OF BREATH Ascorbic Acid (Vitamin C -) 500 mg PO DAILY [facility] Last Admin: 04/07/18 10:26 Dose: 500 mg Aspirin (Ecotrin -) 81 mg PO DAILY [facility] Last Admin: 04/07/18 10:26 Dose: 81 mg Atorvastatin Calcium (Lipitor -) 10 mg PO HS [facility] Last Admin: 04/06/18 21:23 Dose: 10 mg Budesonide/Formoterol Fumarate (Symbicort 80/4.5mcg -) 2 puff IH BID [facility] Last Admin: 04/07/18 10:28 Dose: 2 puff Calcium/Vitamin D (Oscal 250 Mg+D -) 1 tab PO DAILY [facility] Last Admin: 04/07/18 10:27 Dose: 1 tab Carvedilol (Coreg -) 6.25 mg PO BID [facility] Last Admin: 04/07/18 10:26 Dose: 6.25 mg Cholecalciferol (Vitamin D3 -) 1,000 unit PO DAILY [facility] Last Admin: 04/07/18 10:27 Dose: 1,000 unit Emollient Ointment (Aquaphor -) 1 applic TP BID PRN PRN Reason: DRY SKIN Last Admin: 04/05/18 17:02 Dose: 1 applic Ferrous Sulfate (Feosol -) 325 mg PO DAILY [facility] Last Admin: 04/07/18 10:26 Dose: 325 mg Heparin Sodium (Porcine) (Heparin -) 5,000 unit SQ BID [facility] Last Admin: 04/07/18 10:27 Dose: 5,000 unit Lactobacillus Acidophilus (Bacid -) 1 tab PO DAILY [facility] Last Admin: 04/07/18 10:26 Dose: 1 tab Latanoprost (Xalatan 0.005% Eye Drops -) 1 drop OU HS [facility] Last Admin: 04/06/18 21:24 Dose: 1 drop Levothyroxine Sodium (Synthroid -) 25 mcg PO 0700 [facility] Last Admin: 04/07/18 06:07 Dose: 25 mcg Metformin HCl (Glucophage -) 500 mg PO BIDAC [facility] Last Admin: 04/07/18 06:07 Dose: 500 mg Lnony-3-Seoz Ethyl Esters (Lovaza -) 2 gm PO BID [facility] Last Admin: 04/07/18 10:27 Dose: 2 gm Ranitidine HCl (Zantac -) 150 mg PO DAILY [facility] Last Admin: 04/07/18 10:26 Dose: 150 mg Sertraline HCl (Zoloft -) 25 mg PO HS [facility] Last Admin: 04/06/18 21:24 Dose: 25 mg Sitagliptin Phosphate (Januvia -) 100 mg PO 0700 [facility] Last Admin: 04/07/18 06:07 Dose: 100 mg Vancomycin HCl (Vancomycin Oral Solution) 125 mg PO Q6HPO [facility] Last Admin: 04/07/18 12:08 Dose: 125 mg - Objective Vital Signs: Vital Signs Temperature 97.9 F 04/07/18 06:00 Pulse Rate 80 04/07/18 06:00 Respiratory Rate 20 04/07/18 06:00 Blood Pressure 115/73 04/07/18 06:00 O2 Sat by Pulse Oximetry (%) 96 04/06/18 21:00 Constitutional: Yes: Well Nourished, No Distress, Calm Cardiovascular: Yes: WNL, Regular Rate and Rhythm Respiratory: Yes: WNL, Regular, CTA Bilaterally. No: Accessory Muscle Use, Rhonchi, SOB, Tachypnea, Wheezes Gastrointestinal: Yes: WNL, Normal Bowel Sounds, Soft, Abdomen, Obese. No: Distention, Tenderness Genitourinary: Yes: WNL Musculoskeletal: Yes: WNL Edema: No Neurological: Yes: WNL, Alert, Oriented Psychiatric: Yes: WNL, Alert, Oriented Labs: CBC, BMP 04/07/18 06:50 04/07/18 06:50 Assessment/Plan (1) Foot drop, left Assessment/Plan: acute, stable CT L/S- grade 1 degenerative anterior spondylolisthesis of L5 on S1. Left neural foraminal narrowing. EMG without radiculopathy, consistent w/ peroneal nerve palsy PT/AFO brace recommended by ortho, neuro, nsgy,girl friday pain management consult appreciated- BECKY outpt nsgy/neurology consult appreciated AWAITING AFO BRACE Code(s): M21.372 - FOOT DROP, LEFT FOOT (2) Spondylolisthesis at L5-S1 level Assessment/Plan: as above Code(s): M43.17 - SPONDYLOLISTHESIS, LUMBOSACRAL REGION (3) Weakness Assessment/Plan: 2/2 mechanical fall , poor po intake head CT neg as above Code(s): R53.1 - WEAKNESS (4) Clavicle fracture Assessment/Plan: stable ortho evaluated- no surgical intervention continue sling for support adequate pain control Code(s): S42.009A - FRACTURE OF UNSP PART OF UNSP CLAVICLE, INIT FOR CLOS FX Qualifiers: Encounter type: subsequent encounter Clavicle location: lateral end Fracture type: closed Fracture alignment: displaced Laterality: left (5) Osteoarthritis Assessment/Plan: continue vitamin D Code(s): M19.90 - UNSPECIFIED OSTEOARTHRITIS, UNSPECIFIED SITE Qualifiers: Osteoarthritis location: multiple joints Osteoarthritis type: primary Qualified Code(s): M15.0 - Primary generalized (osteo)arthritis (6) Elevated d-dimer Assessment/Plan: ruled out b/l le/ue duplex neg for dvt low suspicion of pe pulm consult appreciated Code(s): R79.89 - OTHER SPECIFIED ABNORMAL FINDINGS OF BLOOD CHEMISTRY (7) S/P TAVR (transcatheter aortic valve replacement) Assessment/Plan: stable, s/p tavr 08/13 Code(s): Z95.2 - PRESENCE OF PROSTHETIC HEART VALVE (8) S/P mitral valve replacement Assessment/Plan: stable, s/p bioprosthetic mvr 11/11 Code(s): Z95.2 - PRESENCE OF PROSTHETIC HEART VALVE (9) HTN (hypertension) Assessment/Plan: controlled continue carvedilol Code(s): I10 - ESSENTIAL (PRIMARY) HYPERTENSION Qualifiers: Hypertension type: essential hypertension Qualified Code(s): I10 - Essential (primary) hypertension (10) Hypothyroid Assessment/Plan: chronic continue synthroid Code(s): E03.9 - HYPOTHYROIDISM, UNSPECIFIED Qualifiers: Hypothyroidism type: unspecified Qualified Code(s): E03.9 - Hypothyroidism , unspecified (11) Hyperlipidemia Assessment/Plan: Controlled Continue lipitor, lovaza continue lifestyle modifications Code(s): E78.5 - HYPERLIPIDEMIA, UNSPECIFIED (12) GERD (gastroesophageal reflux disease) Assessment/Plan: Stable Continue zantac Code(s): K21.9 - GASTRO-ESOPHAGEAL REFLUX DISEASE WITHOUT ESOPHAGITIS Qualifiers: Esophagitis presence: without esophagitis Qualified Code(s): K21.9 - Gastro -esophageal reflux disease without esophagitis (13) Diabetes Assessment/Plan: controlled continue metformin/januvia Code(s): E11.9 - TYPE 2 DIABETES MELLITUS WITHOUT COMPLICATIONS Qualifiers: Diabetes mellitus type: type 2 Diabetes mellitus complication status: with ophthalmic complications Diabetes mellitus complication detail: with diabetic retinopathy Diabetes mellitus rodent exterminator insulin use: without rodent exterminator use (14) CAD (coronary artery disease) Assessment/Plan: Stable continue asa/statin Code(s): I25.10 - ATHSCL HEART DISEASE OF [place] CORONARY ARTERY W/O ANG PCTRS Qualifiers: Coronary Disease-Associated Artery/Lesion type: [place] artery [place] vs. transplanted heart: [place] heart Associated angina: without angina Qualified Code(s): I25.10 - Atherosclerotic heart disease of [place] coronary artery without angina pectoris (15) COPD (chronic obstructive pulmonary disease) Assessment/Plan: chronic continue breo, albuterol Code(s): J44.9 - CHRONIC OBSTRUCTIVE PULMONARY DISEASE, UNSPECIFIED Qualifiers: COPD type: unspecified COPD Qualified Code(s): J44.9 - Chronic obstructive pulmonary disease, unspecified (16) Hypotension Assessment/Plan: resolved Code(s): I95.9 - HYPOTENSION, UNSPECIFIED (17) Clostridium difficile colitis Assessment/Plan: improving, bms less po vanco day 3 diet advanced monitor Code(s): A04.72 - ENTEROCOLITIS D/T CLOSTRIDIUM DIFFICILE, NOT SPCF RECUR (18) Chest pain Assessment/Plan: resolved, no acs Code(s): R07.9 - CHEST PAIN, UNSPECIFIED (19) Nausea Assessment/Plan: resolved Abd/pelvic CT w/ gall stones, no cholecysitis/obstruction Code(s): R11.0 - NAUSEA (20) UTI (urinary tract infection) Assessment/Plan: symptomatic, UC grew enterococcus faecalis completed levaquin 3 day course Code(s): N39.0 - URINARY TRACT INFECTION, SITE NOT SPECIFIED Qualifiers: Urinary tract infection type: acute cystitis Hematuria presence: without hematuria Qualified Code(s): N30.00 - Acute cystitis without hematuria Dispo: SNF, pt is medically stable for discharge. FOR MEDICAL CLEARANCE, SHE NEEDS TO HAVE AFO BRACE AT BEDSIDE BEFORE DISCHARGE TO SNF.
--- NOTE | 2018-04-07 12:43 | PN ---
Progress Note, Physician History of Present Illness: Left foot drop stable, LBP improved, denies chest pain, dyspnea, and pain, diarrhea since resolved. Reports left clavicular pain. - Current Medication List Current Medications: Active Medications Acetaminophen (Tylenol -) 650 mg PO Q6H PRN PRN Reason: PAIN LEVEL 1-5 Last Admin: 04/07/18 11:20 Dose: 650 mg Albuterol Sulfate (Ventolin 0.5% -) 1 amp NEB Q6H PRN PRN Reason: SHORTNESS OF BREATH Ascorbic Acid (Vitamin C -) 500 mg PO DAILY [facility] Last Admin: 04/07/18 10:26 Dose: 500 mg Aspirin (Ecotrin -) 81 mg PO DAILY [facility] Last Admin: 04/07/18 10:26 Dose: 81 mg Atorvastatin Calcium (Lipitor -) 10 mg PO HS [facility] Last Admin: 04/06/18 21:23 Dose: 10 mg Budesonide/Formoterol Fumarate (Symbicort 80/4.5mcg -) 2 puff IH BID [facility] Last Admin: 04/07/18 10:28 Dose: 2 puff Calcium/Vitamin D (Oscal 250 Mg+D -) 1 tab PO DAILY [facility] Last Admin: 04/07/18 10:27 Dose: 1 tab Carvedilol (Coreg -) 6.25 mg PO BID [facility] Last Admin: 04/07/18 10:26 Dose: 6.25 mg Cholecalciferol (Vitamin D3 -) 1,000 unit PO DAILY [facility] Last Admin: 04/07/18 10:27 Dose: 1,000 unit Emollient Ointment (Aquaphor -) 1 applic TP BID PRN PRN Reason: DRY SKIN Last Admin: 04/05/18 17:02 Dose: 1 applic Ferrous Sulfate (Feosol -) 325 mg PO DAILY [facility] Last Admin: 04/07/18 10:26 Dose: 325 mg Heparin Sodium (Porcine) (Heparin -) 5,000 unit SQ BID [facility] Last Admin: 04/07/18 10:27 Dose: 5,000 unit Lactobacillus Acidophilus (Bacid -) 1 tab PO DAILY [facility] Last Admin: 04/07/18 10:26 Dose: 1 tab Latanoprost (Xalatan 0.005% Eye Drops -) 1 drop OU HS [facility] Last Admin: 04/06/18 21:24 Dose: 1 drop Levothyroxine Sodium (Synthroid -) 25 mcg PO 0700 [facility] Last Admin: 04/07/18 06:07 Dose: 25 mcg Metformin HCl (Glucophage -) 500 mg PO BIDAC [facility] Last Admin: 04/07/18 06:07 Dose: 500 mg Vwfin-6-Derr Ethyl Esters (Lovaza -) 2 gm PO BID [facility] Last Admin: 04/07/18 10:27 Dose: 2 gm Ranitidine HCl (Zantac -) 150 mg PO DAILY [facility] Last Admin: 04/07/18 10:26 Dose: 150 mg Sertraline HCl (Zoloft -) 25 mg PO HS [facility] Last Admin: 04/06/18 21:24 Dose: 25 mg Sitagliptin Phosphate (Januvia -) 100 mg PO 0700 [facility] Last Admin: 04/07/18 06:07 Dose: 100 mg Vancomycin HCl (Vancomycin Oral Solution) 125 mg PO Q6HPO [facility] Last Admin: 04/07/18 12:08 Dose: 125 mg - Objective Vital Signs: Vital Signs Temperature 97.9 F 04/07/18 06:00 Pulse Rate 80 04/07/18 06:00 Respiratory Rate 20 04/07/18 06:00 Blood Pressure 115/73 04/07/18 06:00 O2 Sat by Pulse Oximetry (%) 96 04/06/18 21:00 Constitutional: Yes: No Distress, Calm, Thin Neck: Yes: Supple Cardiovascular: Yes: Regular Rate and Rhythm Respiratory: Yes: Regular, Diminished Gastrointestinal: Yes: Normal Bowel Sounds, Soft Edema: No Labs: CBC, BMP 04/07/18 06:50 04/07/18 06:50 Problem List - Problems (1) Lumbar back pain with radiculopathy affecting left lower extremity Code(s): M54.16 - RADICULOPATHY, LUMBAR REGION (2) Foot drop, left Code(s): M21.372 - FOOT DROP, LEFT FOOT (3) S/P mitral valve replacement Code(s): Z95.2 - PRESENCE OF PROSTHETIC HEART VALVE (4) Spondylolisthesis at L5-S1 level Code(s): M43.17 - SPONDYLOLISTHESIS, LUMBOSACRAL REGION (5) T2DM (type 2 diabetes mellitus) Code(s): E11.9 - TYPE 2 DIABETES MELLITUS WITHOUT COMPLICATIONS Qualifiers: Diabetes mellitus [place] insulin use: without penitentiary use (6) CAD (coronary artery disease) Code(s): I25.10 - ATHSCL HEART DISEASE OF [place] CORONARY ARTERY W/O ANG PCTRS Qualifiers: Coronary Disease-Associated Artery/Lesion type: [place] artery [place] vs. transplanted heart: [place] heart Associated angina: without angina Qualified Code(s): I25.10 - Atherosclerotic heart disease of [place] coronary artery without angina pectoris (7) HTN (hypertension) Code(s): I10 - ESSENTIAL (PRIMARY) HYPERTENSION Qualifiers: Hypertension type: essential hypertension Qualified Code(s): I10 - Essential (primary) hypertension (8) Hyperlipidemia Code(s): E78.5 - HYPERLIPIDEMIA, UNSPECIFIED Qualifiers: Hyperlipidemia type: pure hypercholesterolemia Qualified Code(s): E78.00 - Pure hypercholesterolemia, unspecified; E78.0 - Pure hypercholesterolemia (9) Hypothyroid Code(s): E03.9 - HYPOTHYROIDISM, UNSPECIFIED Qualifiers: Hypothyroidism type: unspecified Qualified Code(s): E03.9 - Hypothyroidism , unspecified (10) Pulmonary hypertension Code(s): I27.2 - OTHER SECONDARY PULMONARY HYPERTENSION * DO NOT USE * (11) S/P TAVR (transcatheter aortic valve replacement) Code(s): Z95.2 - PRESENCE OF PROSTHETIC HEART VALVE Assessment/Plan December 22, 2017 Echo: Normal LV size with mildly decreased LV fxn, bioprosthetic AV and MV is seen, mild TR RVSP 40 mmHg 1. L5-S1 spinal stenosis and peroneal nerve palsy 2. Severe aortic valve disease () s/p TAVR 3. s/p mitral valve bioprosthetic replacement, LV myomectomy and ALFREDO closure with Atriclip 10/2017 for ruptured mitral chordae with mod-severe mitral valve regurgitation 4. Hypertension 5. Hypercholesterolemia 6. COPD 7. Sleep apnea 8. Anemia 9. Diabetes mellitus 10. Hypothyroidism 11. + c. diff Ag, enterococcus colonization in urine 12. Recent fall with Left Clavicular Fracture PLAN: 1. Given multiple co-morbidities and complex medical history agree with trial of epidural steroid injections as opposed to surgical intervention 2. Continue Carvedilol 6.25 bid, ASA 81 qd, Lipitor 10 qd Lovaza 2 bid 3. Recommended brace, physical therapy. May consider BECKY for back pain 4. Complete oral vanco and Levaquin course, DVT and GI prophylaxis
--- NOTE | 2018-04-07 14:44 | DS ---
Physical Examination Vital Signs: Vital Signs Temperature 97.6 F 04/07/18 14:23 Pulse Rate 86 04/07/18 14:23 Respiratory Rate 18 04/07/18 14:23 Blood Pressure 111/61 04/07/18 14:23 O2 Sat by Pulse Oximetry (%) 96 04/07/18 09:00 Labs: CBC, BMP 04/07/18 06:50 04/07/18 06:50 Discharge Summary Reason For Visit: FAILURE TO THRIVE/WEAKNESS/LEFT FOOT DROP Current Active Problems Chest pain (Acute) Clostridium difficile colitis (Acute) Diarrhea (Acute) Elevated d-dimer (Acute) Failure to thrive (Acute) Foot drop, left (Acute) Hypotension (Acute) Lumbar back pain with radiculopathy affecting left lower extremity (Acute) Nausea (Acute) Osteoarthritis (Acute) S/P mitral valve replacement (Acute) Spondylolisthesis at L5-S1 level (Acute) UTI (urinary tract infection) (Acute) Weakness (Acute) Hospital Course: is a pleasant 82 year old female who was admitted for new onset left foot drop and impaired ambulation at home. Pt had a mechanical fall 1 week prior to admission resulting in left clavicular fx, she was evaluated in ED and discharged home. Since being at home, pt reports inability to perform ADLs independently due to increased pain and weakness. During this admission, pt evaluated by ortho, no surgical intervention needed for clavicular fx, recommended sling and AFO brace for L foot drop. Pt evaluated by neurology, EMG without radiculopathy, consistent w/ peroneal nerve palsy. CT L/S- grade 1 degenerative anterior spondylolisthesis of L5 on S1 with left neural foraminal narrowing. Pt not a surgical candidate due to comorbidities, cardiac risk factors. 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 Discussed with pain management who recommended BECKY outpt. Pt evaluated by PT, ambulating poorly, pt will benefit from rehab. During her stay, upon evaluation of diarrhea, pt found to have cdiff colitis. Continue PO vanco x 6 more days to complete 10 day course. Electrolytes stable, vitals stable, pt tolerating regular diet. Pt found to have UTI-symptomatic, UA negative however uc grew enterococcus faecalis and considering pt's dysuria, treated, pt completed 3 day Levaquin course. Otherwise, pt is medically stable for discharge today to SNF. 35 minutes spent in discharge planning Condition: Good - Instructions Diet, Activity, Other Instructions: low fiber, low dairy diet , activity per PT with AFO brace PO vancomycin x 6 more days f/u with pain management for steroid injections Referrals: Ricky Chavira MD [Staff Physician] - 2 Weeks Jorje Tom MD [Primary Care Provider] - 1 Week Disposition: CUSTODIAL FACILITY - Home Medications Comprehensive Discharge Medication List: Ambulatory Orders Sitagliptin Phosphate [Januvia] 100 mg PO DAILY 12/18/14 Atorvastatin Ca [Lipitor] 10 mg PO HS #1 tablet 12/22/14 Cholecalciferol (Vitamin D3) [Vitamin D3 -] 1,000 unit PO DAILY 03/10/16 Latanoprost 0.005% Eye Drops [Xalatan 0.005% Eye Drops -] 1 drop OU HS 07/25/16 Ascorbic Acid [Vitamin C] 500 mg PO DAILY 05/10/17 Levothyroxine [Synthroid -] 0.025 mcg PO ACBK 05/10/17 Sertraline HCl [Zoloft] 25 mg PO HS 05/10/17 Carvedilol [Coreg -] 6.25 mg PO BID #60 tablet 05/13/17 Calcium 250Mg/Vit-D 125 Units [Oscal 250 mg+D -] 1 combo PO DAILY 10/24/17 Ferrous Sulfate 325 mg PO DAILY 10/24/17 Metformin HCl [Glucophage] 500 mg PO BID 10/24/17 [place]-3/Dha/Epa/Fish Oil [Fish Oil [place]-3 EC 1,200 mg] 1 each PO DAILY Albuterol Sulfate 0.5% [Ventolin 0.5% Nebulizing Soln. -] 5 mg IH Q6H PRN Aspirin [Aspirin EC] 81 mg PO DAILY 04/03/18 Fluticasone/Vilanterol [Breo Ellipta 100-25 Mcg INH] 1 mcg IH DAILY 04/03/18 Ranitidine [Zantac -] 150 mg PO DAILY 04/03/18 Lactobacillus Acidophilus [Bacid -] 1 tab PO DAILY tab 04/07/18 Vancomycin Oral Solution 125 mg PO Q6HPO 6 Days ml 04/07/18
--- NOTE | 2018-04-07 16:28 | PN ---
Progress Note (short form) - Note Progress Note: Ms Valadez has brace ordered and delivered. However now cannot use normal shoe secondary to needing brace. Will need special shoe that can accommodate the brace. Shoe is made by same company that made brace.
[2018-04-07 17:16] VITALS: BP 109/64; PULSE 93; TEMP 98
== END 2018-04-07 17:45 | DRG 565 ==
LOC: JER 14:50 → JERBED 22:04 → J8W 04-03 17:42
PROVIDERS: ADMIT Internal Medicine; ATTEND Internal Medicine
DX: M21.372 Foot drop, left foot (principal); I50.32 Chronic diastolic (congestive) heart failure; A04.72 Enterocolitis due to Clostridium difficile, not specified as recurrent; N39.0 Urinary tract infection, site not specified; B95.2 Enterococcus as the cause of diseases classified elsewhere; G57.30 Lesion of lateral popliteal nerve, unspecified lower limb; I11.0 Hypertensive heart disease with heart failure; I27.20 Pulmonary hypertension, unspecified; R62.7 Adult failure to thrive; J43.9 Emphysema, unspecified; E03.9 Hypothyroidism, unspecified; E11.319 Type 2 diabetes mellitus with unspecified diabetic retinopathy without macular edema; S42.002D Fracture of unspecified part of left clavicle, subsequent encounter for fracture with routine healing; W01.0XXD Fall on same level from slipping, tripping and stumbling without subsequent striking against object, subsequent encounter; M99.53 Intervertebral disc stenosis of neural canal of lumbar region; I25.10 Atherosclerotic heart disease of native coronary artery without angina pectoris; M25.78 Osteophyte, vertebrae; M43.17 Spondylolisthesis, lumbosacral region; M48.07 Spinal stenosis, lumbosacral region; D64.9 Anemia, unspecified; Z95.2 Presence of prosthetic heart valve; K21.9 Gastro-esophageal reflux disease without esophagitis; I34.0 Nonrheumatic mitral (valve) insufficiency; I44.0 Atrioventricular block, first degree; J45.909 Unspecified asthma, uncomplicated; Z95.4 Presence of other heart-valve replacement; G47.33 Obstructive sleep apnea (adult) (pediatric); Z79.84 Long term (current) use of oral hypoglycemic drugs; K57.30 Diverticulosis of large intestine without perforation or abscess without bleeding; F32.9 Major depressive disorder, single episode, unspecified; Z87.891 Personal history of nicotine dependence; E78.5 Hyperlipidemia, unspecified; H40.9 Unspecified glaucoma; M15.0 Primary generalized (osteo)arthritis
CPT/HCPCS: 36415; 70450-TC; 71045-TC-FY; 72125-TC; 72131-TC; 74176-TC; 80048; 80053; 81003; 82306; 82607; 82962; 83735; 84100; 84439; 84443; 84484; 85025; 85379; 87086; 87186; 87324; 87449; 90688; 93005; 93010; 93970-TC; 97116-GP; 97162-GP; 99285-25; G0008; J0131; J1644; J7030

== ENCOUNTER 2019-12-19 12:35 | Inpatient (IN) | payer OTHER ==
[2019-12-19] MEDS ORDERED: LACTATED RINGERS SOLUTION 1000 ML INFUS.BAG IV ONE ×2 (13:13→16:12)
[2019-12-19] MEDS ORDERED: ACETAMINOPHEN 1000 MG/100 ML VIAL (NON FORMULARY) IVPB ONE (13:13)
[2019-12-19] MEDS ORDERED: ACETAMINOPHEN INJECTION 100 ML IVPB ONE (13:19)
--- NOTE | 2019-12-19 13:42 | PDOC ---
History of Present Illness - General Chief Complaint: SIRS, Suspected/Possible Stated Complaint: FALL/NAUSEA Time Seen by Provider: 12/19/19 13:11 History Source: Patient, Old Records Exam Limitations: No Limitations - History of Present Illness Initial Comments: HPI: 84 y/o female presenting to [facility] ER from home complaining of nausea and vomiting x1 day, lower abdominal pain, and increased urinary frequency. Pt is unable to describe the type of pain, but believes it radiates through the abdomen and lower back. Pain is worse when voiding. Also reports non-productive cough without chest pain. Denies diarrhea or hematuria. Pt states she lives alone and care is provided by neighbors. Has not been able to see her PCP recently because of the pandemic. Denies difficulty obtaining or taking medications. PCP: Jorje Tom Cardiology: Dr. Kezia Benz Medical Hx: - Peroneal nerve palsy - Degenerative anterior spondylolisthesis of L5 on S1 with left neural foraminal narrowing - H/o left clavicular fx - Mitral valve regurgitation - Hypothyroid - S/P TAVR (transcatheter aortic valve replacement) - Pulmonary HTN - HONEY - DM - HTN - HLD - GERD Past History - Medical History Allergies/Adverse Reactions: Allergies Allergy/AdvReac Type Severity Reaction Status Date / Time quinine [Quinine] Allergy Mild Rash Verified 04/02/18 15:11 Sulfa (Sulfonamide Allergy Mild Rash Verified 04/02/18 15:11 Antibiotics) [Sulfa(Sulfonamide Antibiotics)] Home Medications: Ambulatory Orders Sitagliptin Phosphate [Januvia] 100 mg PO DAILY 12/18/14 Atorvastatin Ca [Lipitor] 10 mg PO HS #1 tablet 12/22/14 Cholecalciferol (Vitamin D3) [Vitamin D3 -] 1,000 unit PO DAILY 03/10/16 Latanoprost 0.005% Eye Drops [Xalatan 0.005% Eye Drops -] 1 drop OU HS 07/25/16 Ascorbic Acid [Vitamin C] 500 mg PO DAILY 05/10/17 Levothyroxine [Synthroid -] 0.025 mcg PO ACBK 05/10/17 Sertraline HCl [Zoloft] 25 mg PO HS 05/10/17 Carvedilol [Coreg -] 6.25 mg PO BID #60 tablet 05/13/17 Calcium 250Mg/Vit-D 125 Units [Oscal 250 mg+D -] 1 combo PO DAILY 10/24/17 Ferrous Sulfate 325 mg PO DAILY 10/24/17 Metformin HCl [Glucophage] 500 mg PO BID 10/24/17 [place]-3/Dha/Epa/Fish Oil [Fish Oil [place]-3 EC 1,200 mg] 1 each PO DAILY 10/24/17 Albuterol Sulfate 0.5% [Ventolin 0.5% Nebulizing Soln. -] 5 mg IH Q6H PRN 04/03/18 Aspirin [Aspirin EC] 81 mg PO DAILY 04/03/18 Fluticasone/Vilanterol [Breo Ellipta 100-25 Mcg INH] 1 mcg IH DAILY 04/03/18 Ranitidine [Zantac -] 150 mg PO DAILY 04/03/18 Lactobacillus Acidophilus [Bacid -] 1 tab PO DAILY tab 04/07/18 Vancomycin Oral Solution 125 mg PO Q6HPO 6 Days ml 04/07/18 Anemia: Yes Asthma: Yes Cancer: No Cardiac Disorders: Yes (ASHD, AORTIC VALVE REPLACEMENT) CVA: No COPD: Yes (EMPHYSEMA) CHF: No Dementia: No Diabetes: (NIDDM) GI Disorders: Yes (Diverticulosis,gerd, POLYPS) Disorders: No HTN: No Hypercholesterolemia: Yes Liver Disease: (FATTY LIVER) Psychiatric Problems: Yes (derpression) Seizures: No Thyroid Disease: Yes - Surgical History Abdominal Surgery: Yes (Hernia repair) Appendectomy: Yes Cardiac Surgery: Yes (Aortic valve replacement) Cholecystectomy: No Lung Surgery: No Neurologic Surgery: No Orthopedic Surgery: No - Psycho-Social/Smoking History Smoking Status: Yes (1972) Smoking History: Unknown if ever smoked Have you smoked in the past 12 months: No Number of Cigarettes Smoked Daily: 0 If you are a former smoker, when did you quit?: 1972 'Breaking Loose' booklet given: 11/23/15 - Substance Abuse Hx (Audit-C & DAST Scrn) How often the patient has a drink containing alcohol: Never Score: In Men: 4 or > Positive; In Women: 3 or > Positive: 0 Screen Result (Pos requires Nsg. Audit-10AR): Negative In the last yr the pt used illegal drug/Rx for NonMed reason: No Score: Yes response is considered Positive: 0 Screen Result (Positive result requires Nsg. DAST-10): Negative Review of Systems - Review of Systems Able to Perform ROS?: Yes Comments:: 10 point review of systems completed. All systems negative except as noted above. *Physical Exam - Vital Signs Last Vital Signs Temp Pulse Resp BP Pulse Ox 103.5 F H 94 H 32 H 110/47 L 89 L 12/19/19 12:40 12/19/19 12:40 12/19/19 12:40 12/19/19 12:40 12/19/19 12:40 - Physical Exam Vital signs and nursing notes reviewed. Constitutional- Nontoxic elderly female in no acute distress or obvious discomfort. Obese body habitus. Found semi-fowlers on hospital bed. Dirt noted on skin and under both breasts. Head- Normocephalic. No obvious external signs of trauma. Eyes- PERRL. Sclerae white. Ears- Hearing grossly intact. No discharge. Nose- No nasal discharge. Throat- Oral cavity and pharynx normal. No inflammation, swelling, exudate, or lesions. Neck- Supple, trachea is midline. No c-spine tenderness. Cardiovascular / Chest- Regular rate and regular rhythm. Systolic murmur. No rubs, clicks, or gallops. Peripheral pulses- radial pulses full. No pretibial edema. Respiratory- Nasal cannula in place. Breathing unlabored. No coughing observed. Speaking in multi-word responses without pausing. Equal chest rise and fall. Clear to auscultation bilaterally. No stridor, no wheezing, no rhonchi. Gastrointestinal- abdomen is tender in RUQ with discomfort in all quadrants. Globally, abdomen is soft and nondistended. No pulsatile masses. No overlying skin lesions or obvious signs of trauma. Neuro- Alert and oriented x4. Moving all four extremities spontaneously. No facial asymmetry. No slurred speech. Skin- Warm, dry, and intact. Psych- Affect- appropriate. Mood- normal. Speech was non-labored, non- pressured. ED Treatment Course - LABORATORY CBC & Chemistry Diagram: 12/19/19 13:20 12/19/19 13:20 - Medications Given in the ED: ED Medications Discontinued Medications Generic Name Dose Route Start Last Admin Trade Name Freq PRN Reason Stop Dose Admin Lactated Ringer's 1,500 ml 12/19/19 13:13 12/19/19 13:25 Lactated Ringers Solution IV 12/19/19 13:14 1,500 ml ONCE ONE Administration Medical Decision Making - Medical Decision Making 84 y/o female presenting with abdominal pain and vomiting. Febrile. Triage vitals unremarkable for hypotension or tachycardia. Borderline hypoxic on room air; improved with nasal cannula. Physical exam as described above. Pt meets sepsis criteria. ED order set initiated. D/D includes acute cystitis vs cholecystitis vs hepatitis vs PNA. Lower suspicion for COVID-19, but ordered LDH, Ferritin, and CRP given triage hypoxia. Possible baseline SPO2 given h/o COPD and no recent vitals available for raymundo wheat. Reviewed labs. No leukocytosis, not acidotic. Noted elevated lactic acid. Will trend after receiving IVF. Noted UA results concerning for acute cystitis. Reviewed previous urine culture. Noted E. Faecalis. Ordered Vancomycin for abx coverage. Reviewed radiology reports. Noted possible acute cholecystitis. Ordered Zosyn for abx coverage. Will discuss with general surgery. 19 Dec 2019 16:49 PM In person discussion with Dr. Alan of [facility]. Verbally appraised of the pts HPI, ED course, and current plan of management. Will admit pt to med/surg. No additional orders requested. 19 Dec 2019 17:00 PM Telephone discussion with Dr. Escobar of [facility]. Verbally appraised of the pts HPI, ED course, and current plan of management. No additional orders requested. 19 Dec 2019 17:04 PM Telephone conversation with pts son Mac Valadez [phone]. Updated him on plan for admission. Answered all questions. Case discussed with ED Attending Dr. Supa Marie M.D., PGY2 Emergency Medicine Resident Discharge - Discharge Information Problems reviewed: Yes Clinical Impression/Diagnosis: Acute cholecystitis Urinary tract infection Qualifiers: Urinary tract infection type: acute cystitis Hematuria presence: without hematuria Qualified Code(s): N30.00 - Acute cystitis without hematuria Sepsis Qualifiers: Sepsis type: sepsis due to unspecified organism Sepsis acute organ dysfunction status: without acute organ dysfunction Qualified Code(s): A41.9 - Sepsis, unspecified organism Condition: Stable - Admission Yes - Follow up/Referral - Patient Discharge Instructions - Post Discharge Activity
[2019-12-19] MEDS ORDERED: PIPERACILLIN/TAZOB 3.375 GM 3.375 GM in DEXTROSE 5%-WATER - 50 ML IVPB ONE (13:59)
[2019-12-19] MEDS ORDERED: PIPERACILLIN/TAZOB 3.375 GM 3.375 GM/50 ML BAG IVPB ONE (14:00)
[2019-12-19 14:03] LABS: VENOUS BASE EXCESS -0.2 mmol/L (-2-2); VENOUS O2 SATURATION 90.5 % (70-80); VENOUS PCO2 42.6 mmHg (38-52); VENOUS PH 7.385 (7.310-7.410)
[2019-12-19 14:05] LABS: BASO % 0.3 % (0-2.0); EOS % 0.2 % (0-4.5); HEMATOCRIT 32.6 % (32.4-45.2); HEMOGLOBIN 10.9 GM/dL (10.7-15.3); LYMPH % 4.1 % (8-40); MCH 30.3 pg (25.7-33.7); MCHC 33.6 g/dl (32.0-36.0); MEAN CELL VOLUME 90.1 fl (80-96); MONO % 8.2 % (3.8-10.2); NEUT % 87.2 % (42.8-82.8); PLATELET COUNT 192 K/MM3 (134-434); RBC 3.62 M/mm3 (3.60-5.2); RDW 14.6 % (11.6-15.6); WHITE BLOOD COUNT 9.3 K/mm3 (4.0-10.0)
[2019-12-19 14:11] LABS: INR 1.05 (0.83-1.09); PROTHROMBIN TIME (PATIENT) 12.4 SEC (9.7-13.0)
[2019-12-19 14:14] LABS: ACTIVATED PTT 25.9 SECONDS (25.2-36.5)
[2019-12-19 14:38] LABS: ALBUMIN 3.4 g/dl (3.4-5.0); ALK PHOS 76 U/L (45-117); ANION GAP 9 MMOL/L (8-16); BILIRUBIN,TOTAL 0.8 mg/dL (0.2-1); BLOOD UREA NITROGEN 29.3 mg/dL (7-18); CALCIUM 9.5 mg/dL (8.5-10.1); CHLORIDE 102 mmol/L (98-107); CO2 26 mmol/L (21-32); CREATININE 1.1 mg/dL (0.55-1.3); GLUCOSE,RANDOM 206 mg/dL (74-106); POTASSIUM 4.3 mmol/L (3.5-5.1); SGOT/AST 22 U/L (15-37); SGPT/ALT 22 U/L (13-61); SODIUM 137 mmol/L (136-145); TOT PROT 6.7 g/dl (6.4-8.2)
--- NOTE | 2019-12-19 14:46 | PDOC ---
Documentation entered by Susan Samuels SCRIBE, acting as scribe for Aaron Cowart MD. Aaron Cowart MD: This documentation has been prepared by the Arvind gregory Sydney, SCRIBE, under my direction and personally reviewed by me in its entirety. I confirm that the documentation accurately reflects all work, treatment, procedures, and medical decision making performed by me. Attending Attestation - Resident Resident Name: Jorje Marie - ED Attending Attestation I have performed the following: I have examined & evaluated the patient, The case was reviewed & discussed with the resident, I agree w/resident's findings & plan, Exceptions are as noted - HPI HPI: 12/19/19 14:12 Patient is a 84 year old female with a significant past medical history of diastolic HF (s/p TAVR), diabetes, HTN, and hyperlipidemia who presents to the ED with fevers, nausea, and vomiting. Patient denies chest pain, SOB. Denies dysuria, hematuria, frequency, or urgency. Denies any other symptoms. Allergies: Quinine, Sulfa PCP: Jorje Sifuentes - Physicial Exam PE: 12/19/19 14:44 Patient is awake and alert, nontoxic-appearing, febrile Normocephalic and atraumatic PERRLA, EOMI, no photophobia Mucous membranes are dry CTA RRR Abdomen is soft, mildly distended, positive right upper quadrant tenderness, positive Hood's, no guarding or rebound, no palpable hernias No lower extremity edema ANO x3 - Medical Decision Making 12/19/19 14:45 84-year-old female with multiple comorbidities presents with fever, right upper quadrant abdominal pain and nausea. Differential diagnosis includes cholelithiasis versus cholangitis versus right lower lobe pneumonia versus colitis. Will obtain CBC/CMP/VBG/UA. Will obtain right upper quadrant ultrasound and chest x-ray. Will administer IV antibiotics as needed. Likely admission. Discharge - Discharge Information Problems reviewed: Yes Clinical Impression/Diagnosis: Acute cholecystitis Urinary tract infection Qualifiers: Urinary tract infection type: acute cystitis Hematuria presence: without hematuria Qualified Code(s): N30.00 - Acute cystitis without hematuria - Follow up/Referral - Patient Discharge Instructions - Post Discharge Activity
[2019-12-19 15:18] LABS: EPI CELLS 2 /uL (0-25.1); HYALINE CASTS 0 /uL (0-3.1); PH,URINE 5.5 (5.0-8.0); URINE APPEARANCE CLOUDY; URINE BILIRUBIN NEGATIVE (NEGATIVE); URINE COLOR YELLOW; URINE GLUCOSE (UA) NEGATIVE (NEGATIVE); URINE KETONE NEGATIVE (NEGATIVE); URINE LEUK ESTERASE 3+ (NEGATIVE); URINE NITRITE POSITIVE (NEGATIVE); URINE PROTEIN 2+ (NEGATIVE); URINE RBC 11 /uL (0-23.9); URINE UROBILINOGEN 0.2 mg/dL (0.2-1.0); URINE WBC 1009 /uL (0-25.8)
[2019-12-19] MEDS ORDERED: VANCOMYCIN HCL 1,500 MG in DEXTROSE 5%-WATER - 500 ML IVPB ONE (16:12)
[2019-12-19] MEDS ORDERED: VANCOMYCIN 500 MG VIAL (RESTRICTED TO ID ONLY) ONE (16:34)
[2019-12-19] MEDS ORDERED: VANCOMYCIN 1 GRAM (PRE-DOCKED) 1,000 MG/250 ML BAG IVPB ONE (16:34)
[2019-12-19] MEDS ORDERED: AZITHROMYCIN 250 MG TABLET PO ONE (17:01)
--- NOTE | 2019-12-19 17:22 | HP ---
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 She has been having low grade fevers. Today she also began having nausea and vomiting prompting her to go to the ED. ER course was notable for: (1) Febrile at 103.5 (2) US showing multiple gallstones and wall thickening Recent Travel: none PAST MEDICAL HISTORY: as above PAST SURGICAL HISTORY: as above Family history; unable recall cause of of father. Mother of complications of heart disease at 86 years of age Social History: Smoking:denies Alcohol: denies Drugs: denies Allergies quinine [Quinine] Allergy (Mild, Verified 04/02/18 15:11) Rash Sulfa (Sulfonamide Antibiotics) [Sulfa(Sulfonamide Antibiotics)] Allergy (Mild, Verified 04/02/18 15:11) Rash HOME MEDICATIONS: Home Medications Medication Instructions Recorded Sitagliptin Phosphate [Januvia] 100 mg PO DAILY 12/18/14 Atorvastatin Ca [Lipitor] 10 mg PO HS #1 tablet 12/22/14 Cholecalciferol (Vitamin D3) 1,000 unit PO DAILY 03/10/16 [Vitamin D3 -] Latanoprost 0.005% Eye Drops 1 drop OU HS 07/25/16 [Xalatan 0.005% Eye Drops -] Ascorbic Acid [Vitamin C] 500 mg PO DAILY 05/10/17 Levothyroxine [Synthroid -] 0.025 mcg PO ACBK 05/10/17 Sertraline HCl [Zoloft] 25 mg PO HS 05/10/17 Carvedilol [Coreg -] 6.25 mg PO BID #60 tablet 05/13/17 Calcium 250Mg/Vit-D 125 Units 1 combo PO DAILY 10/24/17 [Oscal 250 mg+D -] Ferrous Sulfate 325 mg PO DAILY 10/24/17 Metformin HCl [Glucophage] 500 mg PO BID 10/24/17 [place]-3/Dha/Epa/Fish Oil [Fish Oil 1 each PO DAILY 10/24/17 [place]-3 EC 1,200 mg] Albuterol Sulfate 0.5% [Ventolin 5 mg IH Q6H PRN 04/03/18 0.5% Nebulizing Soln. -] Aspirin [Aspirin EC] 81 mg PO DAILY 04/03/18 Fluticasone/Vilanterol [Breo 1 mcg IH DAILY 04/03/18 Ellipta 100-25 Mcg INH] Ranitidine [Zantac -] 150 mg PO DAILY 04/03/18 Lactobacillus Acidophilus [Bacid -] 1 tab PO DAILY tab 04/07/18 Vancomycin Oral Solution 125 mg PO Q6HPO 6 Days ml 04/07/18 REVIEW OF SYSTEMS CONSTITUTIONAL: Absent: chills, diaphoresis, generalized weakness, malaise, loss of appetite, weight change HEENT: Absent: rhinorrhea, nasal congestion, throat pain, throat swelling, difficulty swallowing, mouth swelling, ear pain, eye pain, visual changes CARDIOVASCULAR: Absent: chest pain, syncope, palpitations, irregular heart rate, lightheadedness, peripheral edema RESPIRATORY: Absent: cough, shortness of breath, dyspnea with exertion, orthopnea, wheezing, stridor, hemoptysis GASTROINTESTINAL: Absent: abdominal distension, diarrhea, constipation, melena, hematochezia GENITOURINARY: Absent: frequency, urgency, hesitancy, hematuria, flank pain, genital pain MUSCULOSKELETAL: Absent: myalgia, Present: multiple pains (neck, shoulder, back, legs, feet) SKIN: Absent: rash, itching, pallor HEMATOLOGIC/IMMUNOLOGIC: Absent: easy bleeding, easy bruising, lymphadenopathy, frequent infections ENDOCRINE: Absent: unexplained weight gain, unexplained weight loss, heat intolerance, cold intolerance NEUROLOGIC: Absent: headache, focal weakness or paresthesias, dizziness, seizure, mental status changes, bladder or bowel incontinence Present; unsteady gait and walks with aid of cane PSYCHIATRIC: Absent: anxiety, depression, suicidal or homicidal ideation, hallucinations. PHYSICAL EXAMINATION Vital Signs - 24 hr 12/19/19 12/19/19 12/19/19 12:40 16:02 16:53 Temperature 103.5 F H 98.3 F Pulse Rate 94 H Pulse Rate [ 83 87 Left Apical] Respiratory 32 H 18 Rate Blood Pressure 110/47 L Blood Pressure 112/50 L 112/50 L [Left Arm] O2 Sat by Pulse 89 L 99 98 Oximetry (%) GENERAL: 84 year of age; morbidly obese, Awake, alert, and fully oriented, in no acute distress. HEAD: Normal with no signs of trauma. EYES: Pupils equal, round and reactive to light, extraocular movements intact, sclera anicteric, conjunctiva clear. No lid lag. EARS, NOSE, THROAT: Ears normal, nares patent, oropharynx clear without exudates.dry lip and tongue mucosae NECK: Normal range of motion, supple without lymphadenopathy, JVD, or masses. LUNGS/thorax: Breath sounds equal, clear to auscultation bilaterally. No wheezes, and no crackles. No accessory muscle use. Mildly kyphotic HEART: Regular rate and rhythm, normal S1 and S2 without murmur, rub or gallop. ABDOMEN: Soft, tender at lower abdomen, not distended, hypoactive bowel sounds, no guarding, no rebound, no masses. No hepatomegaly or splenomegaly. MUSCULOSKELETAL: Normal range of motion at all joints. No bony deformities or tenderness. No CVA tenderness. UPPER EXTREMITIES: 2+ pulses, warm, well-perfused. No cyanosis. No clubbing. No peripheral edema. LOWER EXTREMITIES: 2+ pulses, warm, well-perfused. No calf tenderness. No peripheral edema. NEUROLOGICAL: Cranial nerves II-XII intact. Normal speech. Normal gait. PSYCHIATRIC: Cooperative. Good eye contact. Appropriate mood and affect. SKIN: Warm, dry, normal turgor, no rashes or lesions noted, normal capillary refill. Laboratory Results - last 24 hr 12/19/19 12/19/19 12/19/19 13:20 13:20 13:20 WBC 9.3 RBC 3.62 Hgb 10.9 Hct 32.6 MCV 90.1 MCH 30.3 MCHC 33.6 RDW 14.6 Plt Count 192 D MPV 8.0 Absolute Neuts (auto) 8.1 H Neutrophils % 87.2 H D Lymphocytes % 4.1 L D Monocytes % 8.2 Eosinophils % 0.2 D Basophils % 0.3 Nucleated RBC % 0 PT with INR 12.40 INR 1.05 PTT (Actin FS) 25.9 VBG pH POC VBG pCO2 POC VBG pO2 VBG HCO3 VBG O2 Sat (Sascha) VBG Base Excess Sodium Potassium Chloride Carbon Dioxide Anion Gap BUN Creatinine Est GFR (CKD-EPI)AfAm Est GFR (CKD-EPI)NonAf Random Glucose Lactic Acid Calcium Ferritin 69.5 Total Bilirubin AST ALT Alkaline Phosphatase LD Total 261 H Troponin I C-Reactive Protein 4.9 H Total Protein Albumin TSH Thyroxine (T4) Urine Color Urine Appearance Urine pH Ur Specific [place] Urine Protein Urine Glucose (UA) Urine Ketones Urine Blood Urine Nitrite Urine Bilirubin Urine Urobilinogen Ur Leukocyte Esterase Urine WBC (Auto) Urine RBC (Auto) Urine Casts (Auto) U Epithel Cells (Auto) Urine Bacteria (Auto) 12/19/19 12/19/19 12/19/19 13:20 13:20 13:20 WBC RBC Hgb Hct MCV MCH MCHC RDW Plt Count MPV Absolute Neuts (auto) Neutrophils % Lymphocytes % Monocytes % Eosinophils % Basophils % Nucleated RBC % PT with INR INR PTT (Actin FS) VBG pH 7.385 POC VBG pCO2 42.6 POC VBG pO2 59.7 H VBG HCO3 24.9 VBG O2 Sat (Sascha) 90.5 H VBG Base Excess -0.2 Sodium 137 Potassium 4.3 Chloride 102 Carbon Dioxide 26 Anion Gap 9 BUN 29.3 H Creatinine 1.1 Est GFR (CKD-EPI)AfAm 53.02 Est GFR (CKD-EPI)NonAf 45.74 Random Glucose 206 H Lactic Acid 3.0 H* Calcium 9.5 Ferritin Total Bilirubin 0.8 AST 22 ALT 22 Alkaline Phosphatase 76 LD Total Troponin I < 0.02 C-Reactive Protein Total Protein 6.7 Albumin 3.4 TSH 2.40 Thyroxine (T4) Urine Color Urine Appearance Urine pH Ur Specific [place] Urine Protein Urine Glucose (UA) Urine Ketones Urine Blood Urine Nitrite Urine Bilirubin Urine Urobilinogen Ur Leukocyte Esterase Urine WBC (Auto) Urine RBC (Auto) Urine Casts (Auto) U Epithel Cells (Auto) Urine Bacteria (Auto) 12/19/19 12/19/19 13:20 13:40 WBC RBC Hgb Hct MCV MCH MCHC RDW Plt Count MPV Absolute Neuts (auto) Neutrophils % Lymphocytes % Monocytes % Eosinophils % Basophils % Nucleated RBC % PT with INR INR PTT (Actin FS) VBG pH POC VBG pCO2 POC VBG pO2 VBG HCO3 VBG O2 Sat (Sascha) VBG Base Excess Sodium Potassium Chloride Carbon Dioxide Anion Gap BUN Creatinine Est GFR (CKD-EPI)AfAm Est GFR (CKD-EPI)NonAf Random Glucose Lactic Acid Calcium Ferritin Total Bilirubin AST ALT Alkaline Phosphatase LD Total Troponin I C-Reactive Protein Total Protein Albumin TSH Thyroxine (T4) 10.1 Urine Color Yellow Urine Appearance Cloudy Urine pH 5.5 D Ur Specific [place] 1.015 Urine Protein 2+ H Urine Glucose (UA) Negative Urine Ketones Negative Urine Blood 1+ H Urine Nitrite Positive H Urine Bilirubin Negative Urine Urobilinogen 0.2 Ur Leukocyte Esterase 3+ H Urine WBC (Auto) 1009 Urine RBC (Auto) 11 Urine Casts (Auto) 0 U Epithel Cells (Auto) 2 Urine Bacteria (Auto) >10,000 US RUQ showed multiple gallstones and gallbladder wall thickening ASSESSMENT/PLAN: 1. sepsis secondary to acute cholecystitis and UTI - cont ceftriaxone/flagyl - received a dose of vanco and zosyn in ED - Dr Serrano (ID) consultation - follow blood and urine cultures - IVF - repeat lactic acid - Dr Escobar as certified surgical first assistant 2. SSI, accuchecks for DM 2 - hold off on oral DM agents and reassess in am 3. cont levothyroxine for hypothyroidism 4. CAD, stable - cont carvedilol witih parameters 5. lovenox for DVT prophylaxis Called patient's home to speak to household members re: current list of meds but reached voicemail. Attempted reach next of Kin (son) both phones "could not be reached" and voicemail came on instructing to call another time. Visit type - Emergency Visit Emergency Visit: Yes ED Registration Date: 12/19/19 Care time: The patient presented to the Emergency Department on the above date and was hospitalized for further evaluation of their emergent condition. - New Patient This patient is new to me today: Yes Date on this admission: 01/01/20 - Critical Care Critical Care patient: No
[2019-12-19] MEDS ORDERED: DOCUSATE SODIUM 100 MG CAPSULE (FP) PO PRN (17:39)
[2019-12-19] MEDS ORDERED: ONDANSETRON 4 MG/2 ML VIAL IVPUSH PRN (17:42)
[2019-12-20] MEDS ORDERED: CEFTRIAXONE 1 GM/50 ML BAG ONE (08:11)
[2019-12-20 08:18] LABS: HEMATOCRIT 28.6 % (32.4-45.2); HEMOGLOBIN 9.7 GM/dL (10.7-15.3); MCH 30.3 pg (25.7-33.7); MCHC 33.8 g/dl (32.0-36.0); MEAN CELL VOLUME 89.7 fl (80-96); MEAN PLT VOLUME 8.3 fl (7.5-11.1); PLATELET COUNT 177 K/MM3 (134-434); RBC 3.19 M/mm3 (3.60-5.2); RDW 14.9 % (11.6-15.6)
[2019-12-20 08:23] LABS: BLOOD UREA NITROGEN 24.1 mg/dL (7-18); CALCIUM 8.7 mg/dL (8.5-10.1); CREATININE 0.8 mg/dL (0.55-1.3); POTASSIUM 4.2 mmol/L (3.5-5.1)
[2019-12-20] MEDS ORDERED: CEFTRIAXONE 1 GM in DEXTROSE 5%-WATER - 50 ML IVPB ONE (09:00)
--- NOTE | 2019-12-20 12:18 | CON.CARD ---
Consult Consult Specialty:: cardiology Reason for Consultation:: Preop clearance (cholecystectomy) - History of Present Illness History of Present Illness: 84 year old female with a significant past medical history of diastolic HF (s/p TAVR), diabetes, HTN, and hyperlipidemia who presents to the ED with fevers, nausea, and vomiting. Patient denies chest pain, SOB. Denies dysuria, hematuria, frequency, or urgency. Denies any other symptoms. Allergies: Quinine, Sulfa PCP: Jorje Sifuentes Addendum: Pt says she is a cardiac patient of Dr. Naidu. I will have the consult changed to his service. 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) Pulmonary: Yes: COPD, Sleep Apnea Gastrointestinal: Yes: Diverticulosis, Hiatal Hernia, Other (multiple colon adenomas removed 2014, 2015, capsule endoscopy Dr Olvera 2015 unrevealing) Hepatobiliary: Yes: Cholelithiasis, Other (fatty liver) Renal/: Yes: Renal Calculi Musculoskeletal: Yes: Osteoarthritis Endocrine: Yes: Diabetes Mellitus (with retinopathy), Hypothyroidism Additional Medical History: Legally blind with diabetic retinopathy, macular degeneration and glaucoma - Past Surgical History Past Surgical History: Yes: Appendectomy (ruptured appendix), Cataract Removal, Colonoscopy, Hernia Repair, Tonsillectomy, Upper Endoscopy, Valve Replacement (s/p TAVR 2016, MVR 10/2017) - Alcohol/Substance Use Hx Alcohol Use: No History of Substance Use: reports: None - Smoking History Smoking history: Unknown if ever smoked Have you smoked in the past 12 months: No Aproximately how many cigarettes per day: 0 If you are a former smoker, when did you quit?: 1972 - Social History ADL: Independent History of Recent Travel: No Home Medications - Allergies Allergies/Adverse Reactions: Allergies Allergy/AdvReac Type Severity Reaction Status Date / Time quinine [Quinine] Allergy Mild Rash Verified 04/02/18 15:11 Sulfa (Sulfonamide Allergy Mild Rash Verified 04/02/18 15:11 Antibiotics) [Sulfa(Sulfonamide Antibiotics)] - Home Medications Home Medications: Ambulatory Orders Sitagliptin Phosphate [Januvia] 100 mg PO DAILY 12/18/14 Atorvastatin Ca [Lipitor] 10 mg PO HS #1 tablet 12/22/14 Cholecalciferol (Vitamin D3) [Vitamin D3 -] 1,000 unit PO DAILY 03/10/16 Latanoprost 0.005% Eye Drops [Xalatan 0.005% Eye Drops -] 1 drop OU HS 07/25/16 Ascorbic Acid [Vitamin C] 500 mg PO DAILY 05/10/17 Levothyroxine [Synthroid -] 0.025 mcg PO ACBK 05/10/17 Sertraline HCl [Zoloft] 25 mg PO HS 05/10/17 Carvedilol [Coreg -] 6.25 mg PO BID #60 tablet 05/13/17 Calcium 250Mg/Vit-D 125 Units [Oscal 250 mg+D -] 1 combo PO DAILY 10/24/17 Ferrous Sulfate 325 mg PO DAILY 10/24/17 Metformin HCl [Glucophage] 500 mg PO BID 10/24/17 [place]-3/Dha/Epa/Fish Oil [Fish Oil [place]-3 EC 1,200 mg] 1 each PO DAILY 10/24/17 Albuterol Sulfate 0.5% [Ventolin 0.5% Nebulizing Soln. -] 5 mg IH Q6H PRN 04/03/18 Aspirin [Aspirin EC] 81 mg PO DAILY 04/03/18 Fluticasone/Vilanterol [Breo Ellipta 100-25 Mcg INH] 1 mcg IH DAILY 04/03/18 Ranitidine [Zantac -] 150 mg PO DAILY 04/03/18 Lactobacillus Acidophilus [Bacid -] 1 tab PO DAILY tab 04/07/18 Famotidine [Pepcid -] 20 mg PO BID 12/20/19 Losartan Potassium [Cozaar -] 50 mg PO DAILY 12/20/19 Vital Signs: Vital Signs Temperature 97.9 F 12/20/19 10:45 Pulse Rate 81 12/20/19 10:45 Respiratory Rate 20 12/20/19 10:45 Blood Pressure 113/61 12/20/19 10:45 O2 Sat by Pulse Oximetry (%) 98 12/20/19 10:45 - Other Data Labs, Other Data: CBC, BMP 12/20/19 06:10 12/20/19 06:10 INR, PTT INR 1.05 (0.83-1.09) 12/19/19 13:20 Troponin, BNP 12/19/19 13:20 Troponin I < 0.02 Troponin, BNP 12/19/19 13:20 Troponin I < 0.02
--- NOTE | 2019-12-20 14:27 | PN ---
Teaching Attending Note Name of Resident: Griffin Power ATTENDING PHYSICIAN STATEMENT I saw and evaluated the patient. I reviewed the resident's note and discussed the case with the resident. I agree with the resident's findings and plan as documented. SUBJECTIVE: Seen and examined at bedside. Patient reports suprapubic pain and generalized nonspecific abdominal pain. Reports intermittent nausea. Cardiology consulted for surgical clearance given extensive cardiac history. Urine culture shows lactose fermenting gram-negative rods. OBJECTIVE: Last Vital Signs Temp Pulse Resp BP Pulse Ox 97.9 F 81 20 113/61 95 12/20/19 10:45 12/20/19 10:45 12/20/19 10:45 12/20/19 10:45 12/20/19 12:26 PE: per resident note Labs/Imaging: reviewed ASSESSMENT AND PLAN: 84-year-old female with a history of diastolic CHF, DM 2, HTN, GI bleed secondary to bowel vascular ectasias, HLD, left ear status post TAVR, bioprosthetic MVR, asthma presented to ED with complaints of diffuse pain. Found to have UTI and acute cholecystitis. #Acute cholecystitis with sepsis -cardiology consulted for clearance -pending surgical evaluation -NPO -cont ceftriaxone/flagyl -pain control #UTI -currently being treated with ceftriaxone -f/u cultures #sepsis with bacteremia In 1/2 bottles -lactic acid resolved -unclear if source is urine or gallbladder -cont abx -ID consulted -f/u cultures #DM -hold oral meds -VIPUL -start long acting insulin tomorrow #Hx taver, MVR bioprosthetic, CHF -cardiology consulted -continue home meds for now DVTppx: lovenox
--- NOTE | 2019-12-20 14:49 | CON.ID ---
Consult Consult Specialty:: infectious diseases Referred by:: Reason for Consultation:: choleycystitis - History of Present Illness History of Present Illness: 84 year old obese female with known history of diastolic CHF, diabetes mellitus type 2, hypertension, history of GIB secondary to bowel vascular ectasias, hyperlipidemia, sp TAVR, hypothyroidism, asthma, h/o bioprosthetic MVR, history of left clavicular, degenerative changes with L5 nerve root compression from spondylolisthesis came to the hospital because she was not f eeling well She mentions that she was having pain all over and was not feeling well and they told her to go to the hospital on arrival,patient started vomiting,was worked up and found to ahve choleycy stitis 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) Pulmonary: Yes: COPD, Sleep Apnea Gastrointestinal: Yes: Diverticulosis, Hiatal Hernia, Other (multiple colon adenomas removed 2014, 2015, capsule endoscopy Dr Olvera 2015 unrevealing) Hepatobiliary: Yes: Cholelithiasis, Other (fatty liver) Renal/: Yes: Renal Calculi Musculoskeletal: Yes: Osteoarthritis Endocrine: Yes: Diabetes Mellitus (with retinopathy), Hypothyroidism Additional Medical History: Legally blind with diabetic retinopathy, macular degeneration and glaucoma - Past Surgical History Past Surgical History: Yes: Appendectomy (ruptured appendix), Cataract Removal, Colonoscopy, Hernia Repair, Tonsillectomy, Upper Endoscopy, Valve Replacement (s/p TAVR 2016, MVR 10/2017) - Alcohol/Substance Use Hx Alcohol Use: No History of Substance Use: reports: None - Smoking History Smoking history: Unknown if ever smoked Have you smoked in the past 12 months: No Aproximately how many cigarettes per day: 0 If you are a former smoker, when did you quit?: 1973 - Social History ADL: Independent History of Recent Travel: No Home Medications - Allergies Allergies/Adverse Reactions: Allergies Allergy/AdvReac Type Severity Reaction Status Date / Time quinine [Quinine] Allergy Mild Rash Verified 04/02/18 15:11 Sulfa (Sulfonamide Allergy Mild Rash Verified 04/02/18 15:11 Antibiotics) [Sulfa(Sulfonamide Antibiotics)] - Home Medications Home Medications: Ambulatory Orders Sitagliptin Phosphate [Januvia] 100 mg PO DAILY 12/18/14 Atorvastatin Ca [Lipitor] 10 mg PO HS #1 tablet 12/22/14 Cholecalciferol (Vitamin D3) [Vitamin D3 -] 1,000 unit PO DAILY 03/10/16 Latanoprost 0.005% Eye Drops [Xalatan 0.005% Eye Drops -] 1 drop OU HS 07/25/16 Ascorbic Acid [Vitamin C] 500 mg PO DAILY 05/10/17 Levothyroxine [Synthroid -] 0.025 mcg PO ACBK 05/10/17 Sertraline HCl [Zoloft] 25 mg PO HS 05/10/17 Carvedilol [Coreg -] 6.25 mg PO BID #60 tablet 05/13/17 Calcium 250Mg/Vit-D 125 Units [Oscal 250 mg+D -] 1 combo PO DAILY 10/24/17 Ferrous Sulfate 325 mg PO DAILY 10/24/17 Metformin HCl [Glucophage] 500 mg PO BID 10/24/17 [place]-3/Dha/Epa/Fish Oil [Fish Oil [place]-3 EC 1,200 mg] 1 each PO DAILY 10/24/17 Albuterol Sulfate 0.5% [Ventolin 0.5% Nebulizing Soln. -] 5 mg IH Q6H PRN 04/03/18 Aspirin [Aspirin EC] 81 mg PO DAILY 04/03/18 Fluticasone/Vilanterol [Breo Ellipta 100-25 Mcg INH] 1 mcg IH DAILY 04/03/18 Ranitidine [Zantac -] 150 mg PO DAILY 04/03/18 Lactobacillus Acidophilus [Bacid -] 1 tab PO DAILY tab 04/07/18 Famotidine [Pepcid -] 20 mg PO BID 12/20/19 Losartan Potassium [Cozaar -] 50 mg PO DAILY 12/20/19 Review of Systems - Review of Systems Constitutional: reports: Loss of Appetite, Weakness, Other Eyes: reports: No Symptoms HENT: reports: No Symptoms Neck: reports: No Symptoms Cardiovascular: reports: No Symptoms Respiratory: reports: No Symptoms Gastrointestinal: reports: Abdominal Pain Genitourinary: reports: No Symptoms Musculoskeletal: reports: No Symptoms Integumentary: reports: No Symptoms Neurological: reports: No Symptoms Endocrine: reports: No Symptoms Hematology/Lymphatic: reports: No Symptoms Psychiatric: reports: No Symptoms Physical Exam Vital Signs: Vital Signs Temperature 97.9 F 12/20/19 10:45 Pulse Rate 81 12/20/19 10:45 Respiratory Rate 20 12/20/19 10:45 Blood Pressure 113/61 12/20/19 10:45 O2 Sat by Pulse Oximetry (%) 95 12/20/19 12:26 Constitutional: Yes: Well Nourished, Calm, Mild Distress Cardiovascular: Yes: S1, S2 Respiratory: Yes: Regular, CTA Bilaterally Gastrointestinal: Yes: Soft, Hypoactive Bowel Sounds, Tenderness (rt upper quadrant) Musculoskeletal: Yes: WNL Extremities: Yes: WNL Neurological: Yes: Alert, Oriented Psychiatric: Yes: Alert, Oriented Labs: CBC, BMP 12/20/19 06:10 12/20/19 06:10 Imaging - Results Chest X-ray: Report Reviewed, Image Reviewed Ultrasound: Report Reviewed, Image Reviewed Assessment/Plan patient with multiple medical issues coming to the hospital because of weakness and not feeling well found to have ac cholhanna will start patient on zosyn hydration surgery to see the patient
--- NOTE | 2019-12-20 15:07 | PN ---
Physical Exam: SUBJECTIVE: Patient seen and examined at the bedside, endorses RLQ abdominal pain OBJECTIVE: Vital Signs Period Temp Pulse Resp BP Sys/Jose Pulse Ox Last 24 Hr 97.9 F-99.2 F 73-87 18-24 109-130/43-70 95-100 GENERAL: AOx3 HEAD: Normal with no signs of trauma. EYES: PERRL, extraocular movements intact, sclera anicteric, conjunctiva clear. No ptosis. NECK: Trachea midline, full range of motion, supple. LUNGS: Decreased air movement BL with expiratory wheezing HEART: Regular rate and rhythm, S1, S2 without murmur, rub or gallop. ABDOMEN: Soft, non-distended, mild RLQ as well as suprapbic tenderness, no rebound tenderness EXTREMITIES: 2+ pulses, warm, well-perfused, no edema. NEUROLOGICAL: Cranial nerves II through XII grossly intact. Normal speech, gait not observed. PSYCH: Normal mood, normal affect. SKIN: Warm, dry, normal turgor, no rashes or lesions noted Laboratory Results - last 24 hr 12/19/19 12/19/19 12/19/19 13:20 13:20 13:20 WBC RBC Hgb Hct MCV MCH MCHC RDW Plt Count MPV Sodium Potassium Chloride Carbon Dioxide Anion Gap BUN Creatinine Est GFR (CKD-EPI)AfAm Est GFR (CKD-EPI)NonAf POC Glucometer Random Glucose Lactic Acid Calcium Ferritin 69.5 LD Total 261 H TSH 2.40 Urine Color Urine Appearance Urine pH Ur Specific [place] Urine Protein Urine Glucose (UA) Urine Ketones Urine Blood Urine Nitrite Urine Bilirubin Urine Urobilinogen Ur Leukocyte Esterase Urine WBC (Auto) Urine RBC (Auto) Urine Casts (Auto) U Epithel Cells (Auto) Urine Bacteria (Auto) COVID-19 (JC) Not detected 12/19/19 12/20/19 12/20/19 13:40 06:10 06:10 WBC 11.0 H RBC 3.19 L Hgb 9.7 L Hct 28.6 L MCV 89.7 MCH 30.3 MCHC 33.8 RDW 14.9 Plt Count 177 MPV 8.3 Sodium 137 Potassium 4.2 Chloride 100 Carbon Dioxide 31 Anion Gap 5 L BUN 24.1 H Creatinine 0.8 Est GFR (CKD-EPI)AfAm 77.92 Est GFR (CKD-EPI)NonAf 67.23 POC Glucometer Random Glucose 145 H Lactic Acid Calcium 8.7 Ferritin LD Total TSH Urine Color Yellow Urine Appearance Cloudy Urine pH 5.5 D Ur Specific [place] 1.015 Urine Protein 2+ H Urine Glucose (UA) Negative Urine Ketones Negative Urine Blood 1+ H Urine Nitrite Positive H Urine Bilirubin Negative Urine Urobilinogen 0.2 Ur Leukocyte Esterase 3+ H Urine WBC (Auto) 1009 Urine RBC (Auto) 11 Urine Casts (Auto) 0 U Epithel Cells (Auto) 2 Urine Bacteria (Auto) >10,000 COVID-19 (JC) 12/20/19 12/20/19 07:31 08:10 WBC RBC Hgb Hct MCV MCH MCHC RDW Plt Count MPV Sodium Potassium Chloride Carbon Dioxide Anion Gap BUN Creatinine Est GFR (CKD-EPI)AfAm Est GFR (CKD-EPI)NonAf POC Glucometer 144 Random Glucose Lactic Acid 0.8 Calcium Ferritin LD Total TSH Urine Color Urine Appearance Urine pH Ur Specific [place] Urine Protein Urine Glucose (UA) Urine Ketones Urine Blood Urine Nitrite Urine Bilirubin Urine Urobilinogen Ur Leukocyte Esterase Urine WBC (Auto) Urine RBC (Auto) Urine Casts (Auto) U Epithel Cells (Auto) Urine Bacteria (Auto) COVID-19 (JC) Active Medications Generic Name Dose Route Start Last Admin Trade Name Freq PRN Reason Stop Dose Admin Albuterol Sulfate 2 puff 12/20/19 11:56 Ventolin Hfa Inhaler - IH Q4H PRN SHORT OF BREATH/WHEEZING Docusate Sodium 100 mg 12/19/19 17:39 Colace - PO Q12H PRN CONSTIPATION Enoxaparin Sodium 40 mg 12/20/19 10:00 Lovenox - SQ DAILY CESAR Metronidazole 250 mg in 50 mls @ 100 mls/hr 12/19/19 18:00 12/20/19 10:06 Flagyl 250mg Premixed Ivpb - IVPB 100 mls/hr Q8H-IV CESAR Administration Lactated Ringer's 1,000 ml in 1,000 mls @ 42 mls/hr 12/20/19 14:45 Lactated Ringers Solution IV ASDIR CESAR Ondansetron HCl 4 mg 12/19/19 17:42 Zofran Injection IVPUSH Q6H PRN NAUSEA ASSESSMENT/PLAN: 84 year old female with PMH of HF, DM/HTN/HLD, (TAVR/MVR), hypothyroidism, and asthma/COPD. She presented to the ER with RLQ abdominal pain, low grade fevers, and dysuria for the past 3 days. Was found to have acute cholecystitis on US. #Acute Cholecystitis - US: Multiple gallstones with wall thickening and trace pericholecystic fluid suspicious for acute cholecystitis, limited visualization of pancreas - WBC 9.3 -> 11.0, LA 3.0 -> 0.8, TBili 0.8, A/A within normal range - COVID NEG - Started on Ceftriaxone/Metronidazole, switched to Zosyn by ID - Tylenol for pain control - ID (Dr Serrano) following - Surgery consult placed #UTI - Pt endorses dysuria - UA Prot 2+, Blood 1+, Nitrite +, LE 3+ - UCx psitive for LFGNB - Receiving Ceftriaxone for cholecystitis, will also cover for UTI #Hx of HF/HTN/HLD - Last Echo: May 13, LVEF "normal" - Cardio consult placed for pre-op clearance - Holding home Losartan due to normal BP - Resumed home Lipitor #Hx of DM - BGM, low dose ISS - Will start on long acting insulin tomorrow #Hx of hypothyroidism - Levothyroxine resumed #Hx of COPD/asthma - Home inhalers resumed #FEN - LR @ 42 - NPO for possible surgery #Prophylaxis - Holding AC for potential surgery #Disp - Pt uses 2 pharmacies, meds rec from 1 pharmacy completed, pt does not remember address of second pharmacy - Pt's friend Leonela Urias is very involved in pt's care, is aware of home meds, attempted to contact at with no response - Surgery vs medical management Visit type - Emergency Visit Emergency Visit: No - New Patient This patient is new to me today: No - Critical Care Critical Care patient: No ATTENDING PHYSICIAN STATEMENT I saw and evaluated the patient. I reviewed the resident's note and discussed the case with the resident. I agree with the resident's findings and plan as documented. SUBJECTIVE: OBJECTIVE: ASSESSMENT AND PLAN:
[2019-12-20] MEDS: LACTATED RINGERS SOLUTION 1,000 ML/1,000 ML INFUS.BAG IV SCH (15:32)
[2019-12-20] MEDS ORDERED: DEXTROSE 5%-WATER - 50 ML IVPB ONE ×2 (15:44→18:33)
[2019-12-20] MEDS ORDERED: PIPERACILLIN/TAZOBACTAM 2.25 GM VIAL IVPB ONE ×2 (15:44→18:33)
[2019-12-20] MEDS: PIPERACILLIN/TAZOB 2.25 GM 2.25 GM in DEXTROSE 5%-WATER - 50 ML IVPB SCH ×2 (15:49→18:35)
[2019-12-20] MEDS: INSULIN SLIDING SCALE (NOVOLOG) 1 VIAL SQ SCH ×2 (16:55→21:55)
--- NOTE | 2019-12-20 17:11 | CONSULT ---
- Consultation REQUESTING PROVIDER: Soniya TEAGUE CONSULT REQUEST: We have been asked to surgically evaluate this patient for e/m of cholecystitis/cholelithiasis. PCP:Jordin Byrnes MD HISTORY OF PRESENT ILLNESS: LORNA who is an 84 year old white female with known history of diastolic CHF, diabetes mellitus type 2, hypertension, history of GIB secondary to bowel vascular ectasias, hyperlipidemia, s/p TAVR, hypothyroidism, asthma, h/o bioprosthetic MVR, DJD changes with L5 nerve root compression from spondylolisthesis who presented to the ED with complaints of pains in multiple body parts (neck, shoulder, lower back) but also lower abdominal pain; of unquantified nature. She also began having nausea and vomiting prompting her to go to the ED. PMHx: as above PSHx: as above Home Medications Medication Instructions Recorded Sitagliptin Phosphate [Januvia] 100 mg PO DAILY 12/18/14 Atorvastatin Ca [Lipitor] 10 mg PO HS #1 tablet 12/22/14 Cholecalciferol (Vitamin D3) 1,000 unit PO DAILY 03/10/16 [Vitamin D3 -] Latanoprost 0.005% Eye Drops 1 drop OU HS 07/25/16 [Xalatan 0.005% Eye Drops -] Ascorbic Acid [Vitamin C] 500 mg PO DAILY 05/10/17 Levothyroxine [Synthroid -] 0.025 mcg PO ACBK 05/10/17 Sertraline HCl [Zoloft] 25 mg PO HS 05/10/17 Carvedilol [Coreg -] 6.25 mg PO BID #60 tablet 05/13/17 Calcium 250Mg/Vit-D 125 Units 1 combo PO DAILY 10/24/17 [Oscal 250 mg+D -] Ferrous Sulfate 325 mg PO DAILY 10/24/17 Metformin HCl [Glucophage] 500 mg PO BID 10/24/17 [place]-3/Dha/Epa/Fish Oil [Fish Oil 1 each PO DAILY 10/24/17 [place]-3 EC 1,200 mg] Albuterol Sulfate 0.5% [Ventolin 5 mg IH Q6H PRN 04/03/18 0.5% Nebulizing Soln. -] Aspirin [Aspirin EC] 81 mg PO DAILY 04/03/18 Fluticasone/Vilanterol [Breo 1 mcg IH DAILY 04/03/18 Ellipta 100-25 Mcg INH] Ranitidine [Zantac -] 150 mg PO DAILY 04/03/18 Lactobacillus Acidophilus [Bacid -] 1 tab PO DAILY tab 04/07/18 Famotidine [Pepcid -] 20 mg PO BID 12/20/19 Losartan Potassium [Cozaar -] 50 mg PO DAILY 12/20/19 Allergies Allergy/AdvReac Type Severity Reaction Status Date / Time quinine [Quinine] Allergy Mild Rash Verified 04/02/18 15:11 Sulfa (Sulfonamide Allergy Mild Rash Verified 04/02/18 15:11 Antibiotics) [Sulfa(Sulfonamide Antibiotics)] REVIEW OF SYSTEMS: CONSTITUTIONAL: Present: fever, chills, Absent: diaphoresis, generalized weakness, malaise, loss of appetite, weight change CARDIOVASCULAR: Present: chest pain, syncope, palpitations, irregular heart rate, lightheadedness, peripheral edema RESPIRATORY: Absent: cough, shortness of breath, dyspnea with exertion, wheezing, stridor, hemoptysis GASTROINTESTINAL: Absent: abdominal pain, abdominal distension, nausea, vomiting, diarrhea, constipation, melena, hematochezia GENITOURINARY: Absent: dysuria, frequency, urgency, hesitancy, hematuria, flank pain, genital pain MUSCULOSKELETAL: Present: myalgia, arthralgia, joint swelling, back pain, neck pain SKIN: Absent: rash, itching, pallor HEMATOLOGIC/IMMUNOLOGIC: Absent: easy bleeding, easy bruising, lymphadenopathy NEUROLOGIC: Absent: headache, focal weakness, paresthesias, dizziness, unsteady gait, seizure, mental status changes, bladder or bowel incontinence PSYCHIATRIC: Absent: anxiety, depression, suicidal or homicidal ideation, hallucinations. PHYSICAL EXAM: GENERAL: Awake, alert, and fully oriented, in no acute distress. HEAD: Normal with no signs of trauma. EYES: PERRL, sclera anicteric, conjunctiva clear. NECK: Normal ROM, supple without lymphadenopathy, JVD, or masses. ABDOMEN: Soft, nontender, not distended, normoactive bowel sounds, no guarding, no rebound, no masses. No organomegaly. No hernias. MUSCULOSKELETAL: Normal ROM at all joints. No bony deformities or tenderness. No CVA tenderness. UPPER EXTREMITIES: 2+ pulses, warm, well-perfused. No cyanosis. Cap refill <2 seconds. No peripheral edema. LOWER EXTREMITIES: 2+ pulses, warm, well-perfused. No calf tenderness. No peripheral edema. NEUROLOGICAL: Normal speech, gait not observed. PSYCH: Cooperative. Good eye contact. Appropriate mood and affect. SKIN: Warm, dry, normal turgor, no rashes or lesions noted. Vital Signs Temperature 97.8 F 12/20/19 15:54 Pulse Rate 80 12/20/19 15:54 Respiratory Rate 22 H 12/20/19 15:54 Blood Pressure 134/66 12/20/19 15:54 O2 Sat by Pulse Oximetry (%) 95 12/20/19 14:31 Lab Results WBC 11.0 K/mm3 (4.0-10.0) H 12/20/19 06:10 RBC 3.19 M/mm3 (3.60-5.2) L 12/20/19 06:10 Hgb 9.7 GM/dL (10.7-15.3) L 12/20/19 06:10 Hct 28.6 % (32.4-45.2) L 12/20/19 06:10 MCV 89.7 fl (80-96) 12/20/19 06:10 MCHC 33.8 g/dl (32.0-36.0) 12/20/19 06:10 RDW 14.9 % (11.6-15.6) 12/20/19 06:10 Plt Count 177 K/MM3 (134-434) 12/20/19 06:10 INR 1.05 (0.83-1.09) 12/19/19 13:20 Sodium 137 mmol/L (136-145) 12/20/19 06:10 Potassium 4.2 mmol/L (3.5-5.1) 12/20/19 06:10 Chloride 100 mmol/L (98-107) 12/20/19 06:10 Carbon Dioxide 31 mmol/L (21-32) 12/20/19 06:10 Anion Gap 5 MMOL/L (8-16) L 12/20/19 06:10 BUN 24.1 mg/dL (7-18) H 12/20/19 06:10 Creatinine 0.8 mg/dL (0.55-1.3) 12/20/19 06:10 Random Glucose 145 mg/dL (74-106) H 12/20/19 06:10 Calcium 8.7 mg/dL (8.5-10.1) 12/20/19 06:10 Imaging w/u reviewed IMP: acute cholecystitis/cholelithiasi/UTI PLAN: NPO/IVF/IVAB's; would get HIDA scan and if positive possible lap andrés 12/24/19 pending ongoing evaluation and risk stratification; she has # co- morbidities. Jean Escobar MD FACS
--- NOTE | 2019-12-20 17:38 | EKG ---
Test Reason : Blood Pressure : / mmHG Vent. Rate : 096 BPM Atrial Rate : 096 BPM P-R Int : 208 ms QRS Dur : 118 ms QT Int : 374 ms P-R-T Axes : 072 -48 081 degrees QTc Int : 472 ms NORMAL SINUS RHYTHM LEFT ANTERIOR FASCICULAR BLOCK LEFT VENTRICULAR HYPERTROPHY WITH QRS WIDENING AND REPOLARIZATION ABNORMALITY ABNORMAL ECG WHEN COMPARED WITH ECG OF 04-APR-2018 11:55, NO SIGNIFICANT CHANGE WAS FOUND Confirmed by KAM COBIAN MD ([id number]) on 12/20/2019 5:38:30 PM Referred By: Confirmed By:KAM COBIAN MD
[2019-12-20] MEDS: FAMOTIDINE 20 MG TABLET PO SCH (21:56)
[2019-12-20] MEDS: SERTRALINE HCL 25 MG TABLET (FP) PO SCH (21:56)
[2019-12-20] MEDS: ACETAMINOPHEN 1000 MG/100 ML VIAL (NON FORMULARY) IVPB PRN (21:57)
[2019-12-21] MEDS ORDERED: PIPERACILLIN/TAZOBACTAM 2.25 GM VIAL IVPB ONE ×3 (02:04→17:11)
[2019-12-21] MEDS ORDERED: DEXTROSE 5%-WATER - 50 ML IVPB ONE ×3 (02:05→17:12)
[2019-12-21] MEDS: PIPERACILLIN/TAZOB 2.25 GM 2.25 GM in DEXTROSE 5%-WATER - 50 ML IVPB SCH ×3 (02:09→17:18)
[2019-12-21] MEDS: INSULIN SLIDING SCALE (NOVOLOG) 1 VIAL SQ SCH ×4 (06:29→22:29)
[2019-12-21] MEDS: ACETAMINOPHEN 1000 MG/100 ML VIAL (NON FORMULARY) IVPB PRN ×2 (06:31→14:23)
[2019-12-21] MEDS: LEVOTHYROXINE NA 25 MCG TABLET (FP) PO SCH (06:31)
[2019-12-21] MEDS ORDERED: LEVOTHYROXINE NA 25 MCG TABLET (FP) PO SCH (07:00)
[2019-12-21 07:47] LABS: BASO % 0.3 % (0-2.0); EOS % 1.7 % (0-4.5); HEMATOCRIT 28.3 % (32.4-45.2); HEMOGLOBIN 9.6 GM/dL (10.7-15.3); LYMPH % 10.8 % (8-40); MCH 30.3 pg (25.7-33.7); MCHC 33.8 g/dl (32.0-36.0); MEAN CELL VOLUME 89.6 fl (80-96); MEAN PLT VOLUME 7.9 fl (7.5-11.1); MONO % 12.1 % (3.8-10.2); NEUT % 75.1 % (42.8-82.8); PLATELET COUNT 184 K/MM3 (134-434); RBC 3.16 M/mm3 (3.60-5.2); RDW 14.5 % (11.6-15.6); WHITE BLOOD COUNT 8.3 K/mm3 (4.0-10.0)
[2019-12-21 08:12] LABS: ALBUMIN 2.8 g/dl (3.4-5.0); BILIRUBIN,TOTAL 0.6 mg/dL (0.2-1); BLOOD UREA NITROGEN 21.7 mg/dL (7-18); CALCIUM 8.5 mg/dL (8.5-10.1); CREATININE 0.8 mg/dL (0.55-1.3); PHOSPHOROUS 3.1 mg/dL (2.5-4.9); POTASSIUM 4.4 mmol/L (3.5-5.1)
[2019-12-21] MEDS ORDERED: PT OWN MED DRAWER 7, Y5N ONE (09:50)
--- NOTE | 2019-12-21 10:00 | PN ---
Progress Note (short form) - Note Progress Note: 84 year old obese female with known history of sp TAVR,subsequent bioprosthetic MVR, diastolic CHF,LAFB, diabetes mellitus type 2, hypertension, history of GIB secondary to bowel vascular ectasias, hyperlipidemia, hypothyroidism, asthma, , history of left clavicular, degenerative changes with L5 nerve root compression from spondylolisthesis who presents to the ED with complaints of pains in multiple body parts (neck, shoulder, lower back) but also lower abdominal pains. She has been having low grade fevers.On day of admission she also began having nausea and vomiting prompting her to go to the ED. ER course was notable for: (1) Febrile at 103.5 (2) US showing multiple gallstones and wall thickening Found to have UTI and possibly cholecystitis , E.Coli bacteremia, been treated with abx as recommended by ID, cholecystectomy being consider after HIDA by surgery.Currently under camera states feels on and off better, no CP/SOB but back pain due to 30 mins lying under camera. no chills ECG: NSR,LAFB CXR: No congestion Covid negative; Recent Travel: none PAST MEDICAL HISTORY: as above PAST SURGICAL HISTORY: as above Family history; unable recall cause of of father. Mother of complications of heart disease at 86 years of age Social History: Smoking:denies Alcohol: denies Drugs: denies Allergies quinine [Quinine] Allergy (Mild, Verified 04/02/18 15:11) Rash Sulfa (Sulfonamide Antibiotics) [Sulfa(Sulfonamide Antibiotics)] Allergy (Mild, Verified 04/02/18 15:11) Rash HOME MEDICATIONS: Home Medications Medication Instructions Recorded Sitagliptin Phosphate [Januvia] 100 mg PO DAILY 12/18/14 Atorvastatin Ca [Lipitor] 10 mg PO HS #1 tablet 12/22/14 Cholecalciferol (Vitamin D3) 1,000 unit PO DAILY 03/10/16 [Vitamin D3 -] Latanoprost 0.005% Eye Drops 1 drop OU HS 07/25/16 [Xalatan 0.005% Eye Drops -] Ascorbic Acid [Vitamin C] 500 mg PO DAILY 05/10/17 Levothyroxine [Synthroid -] 0.025 mcg PO ACBK 05/10/17 Sertraline HCl [Zoloft] 25 mg PO HS 05/10/17 Carvedilol [Coreg -] 6.25 mg PO BID #60 tablet 05/13/17 Calcium 250Mg/Vit-D 125 Units 1 combo PO DAILY 10/24/17 [Oscal 250 mg+D -] Ferrous Sulfate 325 mg PO DAILY 10/24/17 Metformin HCl [Glucophage] 500 mg PO BID 10/24/17 [place]-3/Dha/Epa/Fish Oil [Fish Oil 1 each PO DAILY 10/24/17 [place]-3 EC 1,200 mg] Albuterol Sulfate 0.5% [Ventolin 5 mg IH Q6H PRN 04/03/18 0.5% Nebulizing Soln. -] Aspirin [Aspirin EC] 81 mg PO DAILY 04/03/18 Fluticasone/Vilanterol [Breo 1 mcg IH DAILY 04/03/18 Ellipta 100-25 Mcg INH] Ranitidine [Zantac -] 150 mg PO DAILY 04/03/18 Lactobacillus Acidophilus [Bacid -] 1 tab PO DAILY tab 04/07/18 Vancomycin Oral Solution 125 mg PO Q6HPO 6 Days ml 04/07/18 REVIEW OF SYSTEMS CONSTITUTIONAL: Absent: chills, diaphoresis, generalized weakness, malaise, loss of appetite, weight change HEENT: Absent: rhinorrhea, nasal congestion, throat pain, throat swelling, difficulty swallowing, mouth swelling, ear pain, eye pain, visual changes CARDIOVASCULAR: Absent: chest pain, syncope, palpitations, irregular heart rate, lightheadedness, peripheral edema RESPIRATORY: Absent: cough, shortness of breath, dyspnea with exertion, orthopnea, wheezing, stridor, hemoptysis GASTROINTESTINAL: Absent: abdominal distension, diarrhea, constipation, melena, hematochezia GENITOURINARY: Absent: frequency, urgency, hesitancy, hematuria, flank pain, genital pain MUSCULOSKELETAL: Absent: myalgia, Present: multiple pains (neck, shoulder, back, legs, feet) SKIN: Absent: rash, itching, pallor HEMATOLOGIC/IMMUNOLOGIC: Absent: easy bleeding, easy bruising, lymphadenopathy, frequent infections ENDOCRINE: Absent: unexplained weight gain, unexplained weight loss, heat intolerance, cold intolerance NEUROLOGIC: Absent: headache, focal weakness or paresthesias, dizziness, seizure, mental status changes, bladder or bowel incontinence Present; unsteady gait and walks with aid of cane PSYCHIATRIC: Absent: anxiety, depression, suicidal or homicidal ideation, hallucinations. PHYSICAL EXAMINATION Vital Signs Temperature 98.1 F 12/21/19 05:00 Pulse Rate 77 12/21/19 05:00 Respiratory Rate 20 12/21/19 05:00 Blood Pressure 122/77 12/21/19 05:00 O2 Sat by Pulse Oximetry (%) 96 12/21/19 06:00 GENERAL: 84 year of age; morbidly obese, Awake, alert, and fully oriented, in no acute distress. HEAD: Normal with no signs of trauma. EYES: Pupils equal, round and reactive to light, extraocular movements intact, sclera anicteric, conjunctiva clear. No lid lag. EARS, NOSE, THROAT: Ears normal, nares patent, oropharynx clear without exudates.dry lip and tongue mucosae NECK: Normal range of motion, supple without lymphadenopathy, JVD, or masses. LUNGS/thorax: Breath sounds equal, clear to auscultation bilaterally. No wheezes, and no crackles. No accessory muscle use. Mildly kyphotic HEART: Regular rate and rhythm, normal S1 and S2 without murmur, rub or gallop. ABDOMEN: Soft, tender at lower abdomen, not distended, hypoactive bowel sounds, no guarding, no rebound, no masses. No hepatomegaly or splenomegaly. MUSCULOSKELETAL: Normal range of motion at all joints. No bony deformities or tenderness. No CVA tenderness. UPPER EXTREMITIES: 2+ pulses, warm, well-perfused. No cyanosis. No clubbing. No peripheral edema. LOWER EXTREMITIES: 2+ pulses, warm, well-perfused. No calf tenderness. No perip heral edema. NEUROLOGICAL: Cranial nerves II-XII intact. Normal speech. Normal gait. PSYCHIATRIC: Cooperative. Good eye contact. Appropriate mood and affect. SKIN: Warm, dry, normal turgor, no rashes or lesions noted, normal capillary refill. CBC,CMP WBC 8.3 K/mm3 (4.0-10.0) 12/21/19 07:10 RBC 3.16 M/mm3 (3.60-5.2) L 12/21/19 07:10 Hgb 9.6 GM/dL (10.7-15.3) L 12/21/19 07:10 Hct 28.3 % (32.4-45.2) L 12/21/19 07:10 MCV 89.6 fl (80-96) 12/21/19 07:10 MCH 30.3 pg (25.7-33.7) 12/21/19 07:10 MCHC 33.8 g/dl (32.0-36.0) 12/21/19 07:10 RDW 14.5 % (11.6-15.6) 12/21/19 07:10 Plt Count 184 K/MM3 (134-434) 12/21/19 07:10 MPV 7.9 fl (7.5-11.1) 12/21/19 07:10 Absolute Neuts (auto) 6.3 K/mm3 (1.5-8.0) 12/21/19 07:10 Neutrophils % 75.1 % (42.8-82.8) 12/21/19 07:10 Lymphocytes % 10.8 % (8-40) D 12/21/19 07:10 Monocytes % 12.1 % (3.8-10.2) H 12/21/19 07:10 Eosinophils % 1.7 % (0-4.5) D 12/21/19 07:10 Basophils % 0.3 % (0-2.0) 12/21/19 07:10 Nucleated RBC % 0 % (0-0) 12/21/19 07:10 Sodium 137 mmol/L (136-145) 12/21/19 07:10 Potassium 4.4 mmol/L (3.5-5.1) 12/21/19 07:10 Chloride 102 mmol/L (98-107) 12/21/19 07:10 Carbon Dioxide 33 mmol/L (21-32) H 12/21/19 07:10 Anion Gap 3 MMOL/L (8-16) L 12/21/19 07:10 BUN 21.7 mg/dL (7-18) H 12/21/19 07:10 Creatinine 0.8 mg/dL (0.55-1.3) 12/21/19 07:10 Est GFR (CKD-EPI)AfAm 77.92 12/21/19 07:10 Est GFR (CKD-EPI)NonAf 67.23 12/21/19 07:10 POC Glucometer 146 UNITS (80-120) 12/21/19 06:20 Random Glucose 140 mg/dL (74-106) H 12/21/19 07:10 Lactic Acid 0.8 mmol/L (0.4-2.0) 12/20/19 08:10 Calcium 8.5 mg/dL (8.5-10.1) 12/21/19 07:10 Phosphorus 3.1 mg/dL (2.5-4.9) 12/21/19 07:10 Magnesium 2.0 mg/dL (1.8-2.4) 12/21/19 07:10 Ferritin 69.5 ng/ml (8-388) 12/19/19 13:20 Total Bilirubin 0.6 mg/dL (0.2-1) 12/21/19 07:10 AST 18 U/L (15-37) 12/21/19 07:10 ALT 18 U/L (13-61) 12/21/19 07:10 Alkaline Phosphatase 59 U/L (45-117) 12/21/19 07:10 LD Total 261 U/L (84-246) H 12/19/19 13:20 Troponin I < 0.02 ng/ml (0.00-0.05) 12/19/19 13:20 C-Reactive Protein 4.9 MG/DL (0.00-0.3) H 12/19/19 13:20 Total Protein 6.0 g/dl (6.4-8.2) L 12/21/19 07:10 Albumin 2.8 g/dl (3.4-5.0) L 12/21/19 07:10 TSH 2.40 uIU/ml (0.358-3.74) 12/19/19 13:20 Thyroxine (T4) 10.1 ug/dl (4.5-13.9) 12/19/19 13:20 Active Medications Acetaminophen (Ofirmev Injection -) 1,000 mg IVPB Q6H PRN PRN Reason: PAIN LEVEL 7 - 10 Stop: 12/21/19 17:15 Last Admin: 12/21/19 06:31 Dose: 1,000 mg Documented by: Albuterol Sulfate (Ventolin Hfa Inhaler -) 2 puff IH Q4H PRN PRN Reason: SHORT OF BREATH/WHEEZING Docusate Sodium (Colace -) 100 mg PO Q12H PRN PRN Reason: CONSTIPATION Enoxaparin Sodium (Lovenox -) 40 mg SQ DAILY [facility] Famotidine (Pepcid -) 20 mg PO BID [facility] Last Admin: 12/20/19 21:56 Dose: 20 mg Documented by: Lactated Ringer's (Lactated Ringers Solution) 1,000 ml in 1,000 mls @ 42 mls/hr IV ASDIR [facility] Last Admin: 12/20/19 15:32 Dose: 42 mls/hr Documented by: Piperacillin Sod/Tazobactam (Sod 2.25 gm/ Dextrose) 50 mls @ 100 mls/hr IVPB Q8H-IV [facility]; Protocol Last Admin: 12/21/19 09:52 Dose: 100 mls/hr Documented by: Insulin Aspart (Novolog Vial Sliding Scale -) 1 vial SQ ACHS [facility]; Protocol Last Admin: 12/21/19 06:29 Dose: Not Given Documented by: Levothyroxine Sodium (Synthroid -) 25 mcg PO ACBK [facility] Last Admin: 12/21/19 06:31 Dose: 25 mcg Documented by: Ondansetron HCl (Zofran Injection) 4 mg IVPUSH Q6H PRN PRN Reason: NAUSEA Sertraline HCl (Zoloft -) 25 mg PO HS [facility] Last Admin: 12/20/19 21:56 Dose: 25 mg Documented by: US RUQ showed multiple gallstones and gallbladder wall thickening ASSESSMENT/PLAN: -Preop: Possible Cholecystectomy -UTI, E Coli bacteremia -S/P TAVR and later MVR (Bio) -LAFB -DHF -HTN -HLD -Hypothyroidism Plan: -d/W surgical team: if surgery necessary preferred to be transferred to [facility] by surgery and patient -At this time cont antibiotics per ID and primary team -vigilant for IE -DVT prophylaxis
--- NOTE | 2019-12-21 10:57 | PN ---
Progress Note, Physician History of Present Illness: stable no new issues - Current Medication List Current Medications: Active Medications Acetaminophen (Ofirmev Injection -) 1,000 mg IVPB Q6H PRN PRN Reason: PAIN LEVEL 7 - 10 Stop: 12/21/19 17:15 Last Admin: 12/21/19 06:31 Dose: 1,000 mg Documented by: Albuterol Sulfate (Ventolin Hfa Inhaler -) 2 puff IH Q4H PRN PRN Reason: SHORT OF BREATH/WHEEZING Docusate Sodium (Colace -) 100 mg PO Q12H PRN PRN Reason: CONSTIPATION Enoxaparin Sodium (Lovenox -) 40 mg SQ DAILY [facility] Famotidine (Pepcid -) 20 mg PO BID COUNT INCLUDES [facility] Last Admin: 12/20/19 21:56 Dose: 20 mg Documented by: Lactated Ringer's (Lactated Ringers Solution) 1,000 ml in 1,000 mls @ 42 mls/hr IV ASDIR COUNT INCLUDES THE [facility] Last Admin: 12/20/19 15:32 Dose: 42 mls/hr Documented by: Piperacillin Sod/Tazobactam (Sod 2.25 gm/ Dextrose) 50 mls @ 100 mls/hr IVPB Q8H-IV [facility]; Protocol Last Admin: 12/21/19 09:52 Dose: 100 mls/hr Documented by: Insulin Aspart (Novolog Vial Sliding Scale -) 1 vial SQ ACHS [facility]CLUD[facility]; Protocol Last Admin: 12/21/19 06:29 Dose: Not Given Documented by: Levothyroxine Sodium (Synthroid -) 25 mcg PO ACBK COUNT INCLUDES [facility] Last Admin: 12/21/19 06:31 Dose: 25 mcg Documented by: Ondansetron HCl (Zofran Injection) 4 mg IVPUSH Q6H PRN PRN Reason: NAUSEA Sertraline HCl (Zoloft -) 25 mg PO HS COUNT INCLUDES [facility] Last Admin: 12/20/19 21:56 Dose: 25 mg Documented by: - Objective Vital Signs: Vital Signs Temperature 98.1 F 12/21/19 05:00 Pulse Rate 77 12/21/19 05:00 Respiratory Rate 20 12/21/19 05:00 Blood Pressure 122/77 12/21/19 05:00 O2 Sat by Pulse Oximetry (%) 96 12/21/19 06:00 Constitutional: Yes: No Distress, Calm Cardiovascular: Yes: S1, S2 Respiratory: Yes: Regular, CTA Bilaterally Gastrointestinal: Yes: Normal Bowel Sounds, Soft, Tenderness Musculoskeletal: Yes: WNL Extremities: Yes: WNL Neurological: Yes: Alert, Oriented Psychiatric: Yes: Alert, Oriented Labs: CBC, BMP 12/21/19 07:10 12/21/19 07:10 INR, PTT INR 1.05 (0.83-1.09) 12/19/19 13:20 Assessment/Plan 84-year-old female with a history of diastolic CHF, DM 2, HTN, GI bleed secondary to bowel vascular ectasias, HLD, left ear status post TAVR, bioprosthetic MVR, asthma presented to ED with complaints of diffuse pain. Found to have UTI and acute cholecystitis. sepsis gm negative bacteremia uti lactic acidosis dm plan continue abx await for hida scan rest as per the team
[2019-12-21] MEDS: FAMOTIDINE 20 MG TABLET PO SCH ×2 (12:29→22:31)
[2019-12-21] MEDS ORDERED: INSULIN (NOVOLOG) ASPART 100 UNITS/ML 10ML VIAL ONE ×2 (12:36→19:28)
[2019-12-21] MEDS: ENOXAPARIN NA (PORCINE) 40 MG/0.4 ML DISP.SYRIN SQ SCH (12:37)
--- NOTE | 2019-12-21 15:02 | PN ---
Teaching Attending Note Name of Resident: Hugo Browne ATTENDING PHYSICIAN STATEMENT I saw and evaluated the patient. I reviewed the resident's note and discussed the case with the resident. I agree with the resident's findings and plan as documented. SUBJECTIVE: Seen and examined at bedside. Patient appears well today. HIDA scan shows pa tent cystic duct. Cardiology recommended transfer if surgery is necessary. Will discuss necessity of possible surgery with surgical team OBJECTIVE: Last Vital Signs Temp Pulse Resp BP Pulse Ox 98.4 F 93 H 20 134/72 98 12/21/19 08:45 12/21/19 08:45 12/21/19 08:45 12/21/19 08:45 12/21/19 14:00 PE: per resident note Labs/Imaging: reviewed ASSESSMENT AND PLAN: 84-year-old female with a history of diastolic CHF, DM 2, HTN, GI bleed secondary to bowel vascular ectasias, HLD, left ear status post TAVR, bioprosthetic MVR, asthma presented to ED with complaints of diffuse pain. Found to have UTI and acute cholecystitis. #Acute cholecystitis with sepsis -HIDA scan shows patent cystic duct. Cardiology recommended transfer if surgery is necessary. Will discuss necessity of possible surgery with surgical team -NPO -cont zosyn -pain control #UTI -zosyn -f/u cultures #sepsis with bacteremia In 1/2 bottles -lactic acid resolved -unclear if source is urine or gallbladder -cont abx -ID consulted -f/u cultures #DM -hold oral meds -VIPUL -start long acting insulin tomorrow #Hx taver, MVR bioprosthetic, CHF -cardiology consulted -continue home meds for now DVTppx: lovenox
--- NOTE | 2019-12-21 16:09 | PN ---
Physical Exam: SUBJECTIVE: Patient seen and examined at bedside. No acute events overnight. Patient still reports intermittent RLQ pain but with improvement from yesterday. Denies fevers, chills, headache, chest pain, SOB, abdominal pain, diarrhea, urinary symptoms. OBJECTIVE: Vital Signs Temperature 98.4 F 12/21/19 08:45 Pulse Rate 93 H 12/21/19 08:45 Respiratory Rate 12/21/19 08:45 Blood Pressure 134/72 12/21/19 08:45 O2 Sat by Pulse Oximetry (%) 98 12/21/19 14:00 GENERAL: The patient is awake, alert, and fully oriented, in no acute distress. HEAD: Normal with no signs of trauma. EYES: PERRLA, EOMI, sclera anicteric, conjunctiva clear. ENT:moist mucous membranes. NECK: Trachea midline, full range of motion, supple. LUNGS: Breath sounds equal, clear to auscultation bilaterally HEART: Regular rate and rhythm, S1, S2 ABDOMEN: Soft, mild RLQ tenderness, nondistended, normoactive bowel sounds. EXTREMITIES: 2+ pulses, warm, well-perfused, no edema. NEUROLOGICAL: Cranial nerves II through XII grossly intact. Normal speech. PSYCH: Normal mood, normal affect. SKIN: Warm, dry, normal turgor. Laboratory Results - last 24 hr 12/20/19 12/20/19 12/21/19 16:53 21:53 06: WBC RBC Hgb Hct MCV MCH MCHC RDW Plt Count MPV Absolute Neuts (auto) Neutrophils % Lymphocytes % Monocytes % Eosinophils % Basophils % Nucleated RBC % Sodium Potassium Chloride Carbon Dioxide Anion Gap BUN Creatinine Est GFR (CKD-EPI)AfAm Est GFR (CKD-EPI)NonAf POC Glucometer 149 138 146 Random Glucose Calcium Phosphorus Magnesium Total Bilirubin AST ALT Alkaline Phosphatase Total Protein Albumin 12/21/19 12/21/19 12/21/19 07:10 07:10 12:32 WBC 8.3 RBC 3.16 L Hgb 9.6 L Hct 28.3 L MCV 89.6 MCH 30.3 MCHC 33.8 RDW 14.5 Plt Count 184 MPV 7.9 Absolute Neuts (auto) 6.3 Neutrophils % 75.1 Lymphocytes % 10.8 D Monocytes % 12.1 H Eosinophils % 1.7 D Basophils % 0.3 Nucleated RBC % 0 Sodium 137 Potassium 4.4 Chloride 102 Carbon Dioxide 33 H Anion Gap 3 L BUN 21.7 H Creatinine 0.8 Est GFR (CKD-EPI)AfAm 77.92 Est GFR (CKD-EPI)NonAf 67.23 POC Glucometer 157 Random Glucose 140 H Calcium 8.5 Phosphorus 3.1 Magnesium 2.0 Total Bilirubin 0.6 AST 18 ALT 18 Alkaline Phosphatase 59 Total Protein 6.0 L Albumin 2.8 L Active Medications Generic Name Dose Route Start Last Admin Trade Name Freq PRN Reason Stop Dose Admin Acetaminophen 1,000 mg 12/20/19 17:15 12/21/19 14:23 Ofirmev Injection - IVPB 12/21/19 17:15 1,000 mg Q6H PRN Administration PAIN LEVEL 7 - 10 Albuterol Sulfate 2 puff 12/20/19 11:56 Ventolin Hfa Inhaler - IH Q4H PRN SHORT OF BREATH/WHEEZING Docusate Sodium 100 mg 12/19/19 17:39 Colace - PO Q12H PRN CONSTIPATION Enoxaparin Sodium 40 mg 12/20/19 10:00 12/21/19 12:37 Lovenox - SQ 40 mg DAILY [facility] Administration Famotidine 20 mg 12/20/19 22:00 12/21/19 12:29 Pepcid - PO 20 mg BID [facility] Administration Lactated Ringer's 1,000 ml in 1,000 mls @ 42 mls/hr 12/20/19 14:45 12/20/19 15:32 Lactated Ringers Solution IV 42 mls/hr ASDIR [facility] Administration Piperacillin Sod/Tazobactam 50 mls @ 100 mls/hr 12/20/19 15:00 12/21/19 09:52 Sod 2.25 gm/ Dextrose IVPB 100 mls/hr Q8H-IV [facility] Administration Protocol Insulin Aspart 1 vial 12/20/19 16:30 12/21/19 12:37 Novolog Vial Sliding Scale - SQ 1 unit ACHS [facility] Administration Protocol Levothyroxine Sodium 25 mcg 12/21/19 07:00 12/21/19 06:31 Synthroid - PO 25 mcg ACBK [facility] Administration Ondansetron HCl 4 mg 12/19/19 17:42 Zofran Injection IVPUSH Q6H PRN NAUSEA Sertraline HCl 25 mg 12/20/19 22:00 12/20/19 21:56 Zoloft - PO 25 mg HS [facility] Administration ASSESSMENT/PLAN: Patient is an 84 year old female with PMH of HF, DM/HTN/HLD, (TAVR/MVR), hypothyroidism, and asthma/COPD, presented to the ER with RLQ abdominal pain, low grade fevers, and dysuria for the past 3 days. Was found to have acute cholecystitis on US. #Acute Cholecystitis, Sepsis - US: Multiple gallstones with wall thickening and trace pericholecystic fluid suspicious for acute cholecystitis, limited visualization of pancreas - HIDA scan: filling of gallbladder excluded acute cystic duct obstruction - On IV Zosyn 2.25mg q8h, day 2 - Blood cultures positive for LFGNB on 1 bottle - Repeat blood cultures pending. - Tylenol for pain control - ID (Dr Serrano) consulted - Surgery (Dr. Escobar) consulted - HIDA scan done, will await surgery for further recs - Cardiology consulted. Recommendations appreciated - if surgery necessary preferred to be transferred to [facility] by surgery and patient #UTI - UA Prot 2+, Blood 1+, Nitrite +, LE 3+ - UCx positive for E.coli - On Iv Zosyn #Hx of HF/HTN/HLD - Last Echo: May 13, LVEF "normal" - Cardio consult placed for pre-op clearance - Holding home Losartan due to normal BP - Resumed home Lipitor #Hx of DM - BGM, low dose ISS - Will start on long acting insulin tomorrow #Hx of hypothyroidism - Levothyroxine resumed #Hx of COPD/asthma - Home inhalers resumed #FEN - LR @ 42 - NPO #Prophylaxis - Lovenox 40mg sq daily #Disp - med surg Visit type - Emergency Visit Emergency Visit: Yes ED Registration Date: 12/19/19 Care time: The patient presented to the Emergency Department on the above date and was hospitalized for further evaluation of their emergent condition. - New Patient This patient is new to me today: Yes Date on this admission: 12/21/19 - Critical Care Critical Care patient: No ATTENDING PHYSICIAN STATEMENT I saw and evaluated the patient. I reviewed the resident's note and discussed the case with the resident. I agree with the resident's findings and plan as documented. SUBJECTIVE: OBJECTIVE: ASSESSMENT AND PLAN:
--- NOTE | 2019-12-21 17:54 | PN ---
Progress Note (short form) - Note Progress Note: Attending Surgeon HIDA negative; doubt sepsis/bacteremia from gallbladder; would tx. conservatively and would not consider for elective lap andrés at this institution in this high risk patient. Jean Escobar MD FACS
[2019-12-21] MEDS: LACTATED RINGERS SOLUTION 1,000 ML/1,000 ML INFUS.BAG IV SCH ×2 (19:41→20:14)
[2019-12-21] MEDS: SERTRALINE HCL 25 MG TABLET (FP) PO SCH (22:31)
[2019-12-22] MEDS ORDERED: PIPERACILLIN/TAZOBACTAM 2.25 GM VIAL IVPB ONE ×3 (03:05→17:22)
[2019-12-22] MEDS ORDERED: DEXTROSE 5%-WATER - 50 ML IVPB ONE ×3 (03:05→17:22)
[2019-12-22] MEDS: PIPERACILLIN/TAZOB 2.25 GM 2.25 GM in DEXTROSE 5%-WATER - 50 ML IVPB SCH ×3 (03:11→17:26)
[2019-12-22] MEDS: ACETAMINOPHEN 325 MG TABLET (FP) PO PRN ×3 (05:12→21:56)
[2019-12-22] MEDS: INSULIN SLIDING SCALE (NOVOLOG) 1 VIAL SQ SCH ×4 (06:19→21:57)
[2019-12-22] MEDS: LEVOTHYROXINE NA 25 MCG TABLET (FP) PO SCH (06:23)
[2019-12-22 07:50] LABS: BASO % 0.5 % (0-2.0); EOS % 1.2 % (0-4.5); HEMATOCRIT 30.3 % (32.4-45.2); HEMOGLOBIN 10.2 GM/dL (10.7-15.3); MCH 30.6 pg (25.7-33.7); MCHC 33.7 g/dl (32.0-36.0); MEAN CELL VOLUME 90.7 fl (80-96); MONO % 11.8 % (3.8-10.2); NEUT % 74.5 % (42.8-82.8); PLATELET COUNT 225 K/MM3 (134-434); RBC 3.35 M/mm3 (3.60-5.2); RDW 14.7 % (11.6-15.6); WHITE BLOOD COUNT 8.5 K/mm3 (4.0-10.0)
[2019-12-22 07:55] LABS: BILIRUBIN,TOTAL 1.1 mg/dL (0.2-1); BLOOD UREA NITROGEN 14.9 mg/dL (7-18); CALCIUM 8.8 mg/dL (8.5-10.1); CREATININE 0.8 mg/dL (0.55-1.3); MAGNESIUM 2.1 mg/dL (1.8-2.4); POTASSIUM 4.5 mmol/L (3.5-5.1); TOT PROT 6.6 g/dl (6.4-8.2)
--- NOTE | 2019-12-22 10:09 | PN ---
Progress Note, Physician History of Present Illness: stable no complaints surgery note noted - Current Medication List Current Medications: Active Medications Acetaminophen (Tylenol -) 650 mg PO Q4H PRN PRN Reason: PAIN LEVEL 4 - 6 Last Admin: 12/22/19 05:12 Dose: 650 mg Documented by: Albuterol Sulfate (Ventolin Hfa Inhaler -) 2 puff IH Q4H PRN PRN Reason: SHORT OF BREATH/WHEEZING Docusate Sodium (Colace -) 100 mg PO Q12H PRN PRN Reason: CONSTIPATION Enoxaparin Sodium (Lovenox -) 40 mg SQ DAILY [facility] Last Admin: 12/21/19 12:37 Dose: 40 mg Documented by: Famotidine (Pepcid -) 20 mg PO BID [facility] Last Admin: 12/21/19 22:31 Dose: 20 mg Documented by: Piperacillin Sod/Tazobactam (Sod 2.25 gm/ Dextrose) 50 mls @ 100 mls/hr IVPB Q8H-IV [facility]; Protocol Last Admin: 12/22/19 03:11 Dose: 100 mls/hr Documented by: Insulin Aspart (Novolog Vial Sliding Scale -) 1 vial SQ [facility]; Protocol Last Admin: 12/22/19 06:19 Dose: Not Given Documented by: Levothyroxine Sodium (Synthroid -) 25 mcg PO ACBK [facility] Last Admin: 12/22/19 06:23 Dose: 25 mcg Documented by: Ondansetron HCl (Zofran Injection) 4 mg IVPUSH Q6H PRN PRN Reason: NAUSEA Sertraline HCl (Zoloft -) 25 mg PO HS [facility] Last Admin: 12/21/19 22:31 Dose: 25 mg Documented by: - Objective Vital Signs: Vital Signs Temperature 98.2 F 12/22/19 06:26 Pulse Rate 80 12/22/19 06:26 Respiratory Rate 20 12/22/19 06:26 Blood Pressure 138/70 12/22/19 06:26 O2 Sat by Pulse Oximetry (%) 96 12/22/19 06:00 Constitutional: Yes: No Distress, Calm Cardiovascular: Yes: S1, S2 Respiratory: Yes: Regular, CTA Bilaterally Gastrointestinal: Yes: Normal Bowel Sounds, Soft Neurological: Yes: Alert, Oriented Psychiatric: Yes: Alert, Oriented Labs: CBC, BMP 12/22/19 06:35 12/22/19 06:35 INR, PTT INR 1.05 (0.83-1.09) 12/19/19 13:20 Assessment/Plan 84-year-old female with a history of diastolic CHF, DM 2, HTN, GI bleed secondary to bowel vascular ectasias, HLD, left ear status post TAVR, bioprosthetic MVR, asthma presented to ED with complaints of diffuse pain. F ound to have UTI and acute cholecystitis. sepsis gm negative bacteremia uti lactic acidosis dm plan continue abx surgery note noted await for repeat blood cx rest as per the team
[2019-12-22] MEDS: FAMOTIDINE 20 MG TABLET PO SCH ×2 (10:21→21:56)
[2019-12-22] MEDS: ENOXAPARIN NA (PORCINE) 40 MG/0.4 ML DISP.SYRIN SQ SCH (10:22)
--- NOTE | 2019-12-22 12:23 | PN ---
Physical Exam: SUBJECTIVE: Patient seen and examined at bedside this morning. No acute events overnight. Patient reports improvement of abdominal pain. Tolerated clear liquid diet. OBJECTIVE: Vital Signs Temperature 98.9 F 12/22/19 10:16 Pulse Rate 81 12/22/19 10:16 Respiratory Rate 12/22/19 11:18 Blood Pressure 150/72 12/22/19 10:16 O2 Sat by Pulse Oximetry (%) 98 12/22/19 11:18 GENERAL: The patient is awake, alert, and fully oriented, in no acute distress. HEAD: Normal with no signs of trauma. EYES: PERRLA, EOMI, sclera anicteric, conjunctiva clear. ENT:moist mucous membranes. NECK: Trachea midline, full range of motion, supple. LUNGS: Breath sounds equal, clear to auscultation bilaterally HEART: Regular rate and rhythm, S1, S2 ABDOMEN: Soft, mild RLQ/suprapubic tenderness, nondistended, normoactive bowel sounds. EXTREMITIES: 2+ pulses, warm, well-perfused, no edema. NEUROLOGICAL: Cranial nerves II through XII grossly intact. Normal speech. PSYCH: Normal mood, normal affect. SKIN: Warm, dry, normal turgor. Laboratory Results - last 24 hr 12/21/19 12/21/19 12/21/19 12:32 16:30 22:27 WBC RBC Hgb Hct MCV MCH MCHC RDW Plt Count MPV Absolute Neuts (auto) Neutrophils % Lymphocytes % Monocytes % Eosinophils % Basophils % Nucleated RBC % Sodium Potassium Chloride Carbon Dioxide Anion Gap BUN Creatinine Est GFR (CKD-EPI)AfAm Est GFR (CKD-EPI)NonAf POC Glucometer 157 119 141 Random Glucose Calcium Phosphorus Magnesium Total Bilirubin AST ALT Alkaline Phosphatase Total Protein Albumin 12/22/19 12/22/19 12/22/19 05:38 06:35 06:35 WBC 8.5 RBC 3.35 L Hgb 10.2 L Hct 30.3 L MCV 90.7 MCH 30.6 MCHC 33.7 RDW 14.7 Plt Count 225 D MPV 8.0 Absolute Neuts (auto) 6.4 Neutrophils % 74.5 Lymphocytes % 12.0 Monocytes % 11.8 H Eosinophils % 1.2 Basophils % 0.5 Nucleated RBC % 0 Sodium 138 Potassium 4.5 Chloride 100 Carbon Dioxide 34 H Anion Gap 4 L BUN 14.9 Creatinine 0.8 Est GFR (CKD-EPI)AfAm 77.92 Est GFR (CKD-EPI)NonAf 67.23 POC Glucometer 144 Random Glucose 149 H Calcium 8.8 Phosphorus 3.0 Magnesium 2.1 Total Bilirubin 1.1 H AST 18 ALT 19 Alkaline Phosphatase 65 Total Protein 6.6 Albumin 3.0 L 12/22/19 11:13 WBC RBC Hgb Hct MCV MCH MCHC RDW Plt Count MPV Absolute Neuts (auto) Neutrophils % Lymphocytes % Monocytes % Eosinophils % Basophils % Nucleated RBC % Sodium Potassium Chloride Carbon Dioxide Anion Gap BUN Creatinine Est GFR (CKD-EPI)AfAm Est GFR (CKD-EPI)NonAf POC Glucometer 214 Random Glucose Calcium Phosphorus Magnesium Total Bilirubin AST ALT Alkaline Phosphatase Total Protein Albumin Active Medications Generic Name Dose Route Start Last Admin Trade Name Freq PRN Reason Stop Dose Admin Acetaminophen 650 mg 12/22/19 04:59 12/22/19 10:22 Tylenol - PO 650 mg Q4H PRN Administration PAIN LEVEL 4 - 6 Albuterol Sulfate 2 puff 12/20/19 11:56 Ventolin Hfa Inhaler - IH Q4H PRN SHORT OF BREATH/WHEEZING Docusate Sodium 100 mg 12/19/19 17:39 Colace - PO Q12H PRN CONSTIPATION Enoxaparin Sodium 40 mg 12/20/19 10:00 12/22/19 10:22 Lovenox - SQ 40 mg DAILY CESAR Administration Famotidine 20 mg 12/20/19 22:00 12/22/19 10:21 Pepcid - PO 20 mg BID CESAR Administration Piperacillin Sod/Tazobactam 50 mls @ 100 mls/hr 12/20/19 15:00 12/22/19 10:22 Sod 2.25 gm/ Dextrose IVPB 100 mls/hr Q8H-IV CESAR Administration Protocol Insulin Aspart 1 vial 12/20/19 16:30 12/22/19 12:11 Novolog Vial Sliding Scale - SQ 2 unit ACHS CESAR Administration Protocol Levothyroxine Sodium 25 mcg 12/21/19 07:00 12/22/19 06:23 Synthroid - PO 25 mcg ACBK CESAR Administration Ondansetron HCl 4 mg 12/19/19 17:42 Zofran Injection IVPUSH Q6H PRN NAUSEA Sertraline HCl 25 mg 12/20/19 22:00 12/21/19 22:31 Zoloft - PO 25 mg HS CESAR Administration ASSESSMENT/PLAN: Patient is an 84 year old female with PMH of HF, DM/HTN/HLD, (TAVR/MVR), hypothyroidism, and asthma/COPD, presented to the ER with RLQ abdominal pain, low grade fevers, and dysuria for 3 days. Was found to have acute cholecystitis on US. #Acute Cholecystitis, Sepsis - US: Multiple gallstones with wall thickening and trace pericholecystic fluid suspicious for acute cholecystitis, limited visualization of pancreas - HIDA scan: filling of gallbladder excluded acute cystic duct obstruction - Continue IV Zosyn 2.25mg q8h, day 3 - Blood cultures positive for E coli on 1 bottle - Repeat blood cultures pending. - Tylenol for pain control - ID (Dr Serrano) consulted - Surgery (Dr. Escobar) consulted - HIDA scan negative. Treat conservatively for now - May advance diet slowly as per surgery - May opt for elective surgery at a tertiary care center due to high risk - Cardiology consulted. Recommendations appreciated #UTI - UA Prot 2+, Blood 1+, Nitrite +, LE 3+ - UCx positive for E.coli - On Iv Zosyn #Hx of HF/HTN/HLD - Last Echo: May 13, LVEF "normal" - Cardio consult placed for pre-op clearance - Holding home Losartan due to normal BP - Resumed home Lipitor #Hx of DM - BGM, low dose ISS - Will start on long acting insulin tomorrow #Hx of hypothyroidism - Levothyroxine resumed #Hx of COPD/asthma - Home inhalers resumed #FEN - Not on any standing fluids - Electrolytes wnl, routine bmp monitoring - Tolerated clear liquid, will advance diet as tolerated #Prophylaxis - Lovenox 40mg sq daily #Disp - med surg Visit type - Emergency Visit Emergency Visit: Yes ED Registration Date: 12/19/19 Care time: The patient presented to the Emergency Department on the above date and was hospitalized for further evaluation of their emergent condition. - New Patient This patient is new to me today: No - Critical Care Critical Care patient: No ATTENDING PHYSICIAN STATEMENT I saw and evaluated the patient. I reviewed the resident's note and discussed the case with the resident. I agree with the resident's findings and plan as documented. SUBJECTIVE: OBJECTIVE: ASSESSMENT AND PLAN:
--- NOTE | 2019-12-22 13:33 | PN ---
Teaching Attending Note Name of Resident: Danyelle Ng ATTENDING PHYSICIAN STATEMENT I saw and evaluated the patient. I reviewed the resident's note and discussed the case with the resident. I agree with the resident's findings and plan as documented. SUBJECTIVE: Seen and examined at bedside. Patient continues to feel better. Per surgery no surgical intervention required at this time due to negative HIDA scan. We will continue IV antibiotics at this time pending follow-up culture OBJECTIVE: PE: per resident note Labs/Imaging: reviewed ASSESSMENT AND PLAN: 84-year-old female with a history of diastolic CHF, DM 2, HTN, GI bleed secondary to bowel vascular ectasias, HLD, left ear status post TAVR, bioprosthetic MVR, asthma presented to ED with complaints of diffuse pain. Found to have UTI and acute cholecystitis. #Acute cholecystitis with sepsis -HIDA scan shows patent cystic duct. Cardiology recommended transfer if surgery is necessary. Will discuss necessity of possible surgery with surgical team -NPO -cont zosyn -pain control #UTI -zosyn -f/u cultures #sepsis with Ecoli bacteremia In 1/2 bottles -lactic acid resolved -urine is likely source -cont IV abx pending f/u blood culture -ID consulted -f/u cultures #DM -hold oral meds -VIPUL -start long acting insulin tomorrow #Hx taver, MVR bioprosthetic, CHF -cardiology consulted -continue home meds for now DVTppx: lovenox Last Vital Signs Temp Pulse Resp BP Pulse Ox 98.9 F 81 20 150/72 98 12/22/19 10:16 12/22/19 10:16 12/22/19 11:18 12/22/19 10:16 12/22/19 11:18
[2019-12-22] MEDS: ALBUTEROL SO4 HFA INHALER IH PRN ×2 (17:58→21:57)
[2019-12-22] MEDS: SERTRALINE HCL 25 MG TABLET (FP) PO SCH (21:56)
[2019-12-23] MEDS ORDERED: PIPERACILLIN/TAZOBACTAM 2.25 GM VIAL IVPB ONE ×3 (02:05→16:53)
[2019-12-23] MEDS ORDERED: DEXTROSE 5%-WATER - 50 ML IVPB ONE ×3 (02:05→16:53)
[2019-12-23] MEDS: PIPERACILLIN/TAZOB 2.25 GM 2.25 GM in DEXTROSE 5%-WATER - 50 ML IVPB SCH ×3 (02:19→17:07)
[2019-12-23] MEDS: LEVOTHYROXINE NA 25 MCG TABLET (FP) PO SCH (06:04)
[2019-12-23] MEDS: INSULIN SLIDING SCALE (NOVOLOG) 1 VIAL SQ SCH ×4 (06:04→21:31)
[2019-12-23] MEDS: ALBUTEROL SO4 HFA INHALER IH PRN ×2 (06:08→12:36)
[2019-12-23 07:14] LABS: BASO % 0.7 % (0-2.0); EOS % 1.1 % (0-4.5); HEMATOCRIT 29.5 % (32.4-45.2); HEMOGLOBIN 9.9 GM/dL (10.7-15.3); LYMPH % 14.2 % (8-40); MCH 30.1 pg (25.7-33.7); MCHC 33.5 g/dl (32.0-36.0); MEAN CELL VOLUME 89.9 fl (80-96); MEAN PLT VOLUME 8.4 fl (7.5-11.1); MONO % 14.5 % (3.8-10.2); NEUT % 69.5 % (42.8-82.8); PLATELET COUNT 201 K/MM3 (134-434); RBC 3.29 M/mm3 (3.60-5.2); RDW 14.3 % (11.6-15.6); WHITE BLOOD COUNT 6.6 K/mm3 (4.0-10.0)
[2019-12-23 07:29] LABS: ALBUMIN 2.9 g/dl (3.4-5.0); BILIRUBIN,TOTAL 0.5 mg/dL (0.2-1); CALCIUM 8.9 mg/dL (8.5-10.1); CREATININE 0.7 mg/dL (0.55-1.3); MAGNESIUM 2.1 mg/dL (1.8-2.4); PHOSPHOROUS 2.6 mg/dL (2.5-4.9); POTASSIUM 4.3 mmol/L (3.5-5.1); TOT PROT 6.3 g/dl (6.4-8.2)
[2019-12-23] MEDS: ENOXAPARIN NA (PORCINE) 40 MG/0.4 ML DISP.SYRIN SQ SCH (09:55)
[2019-12-23] MEDS: FAMOTIDINE 20 MG TABLET PO SCH ×2 (09:55→21:32)
[2019-12-23] MEDS ORDERED: INSULIN (NOVOLOG) ASPART 100 UNITS/ML 10ML VIAL ONE (11:20)
--- NOTE | 2019-12-23 12:53 | PN ---
Progress Note, Physician History of Present Illness: stable no new issues - Current Medication List Current Medications: Active Medications Acetaminophen (Tylenol -) 650 mg PO Q4H PRN PRN Reason: PAIN LEVEL 4 - 6 Last Admin: 12/22/19 21:56 Dose: 650 mg Documented by: Albuterol Sulfate (Ventolin Hfa Inhaler -) 2 puff IH Q4H PRN PRN Reason: SHORT OF BREATH/WHEEZING Last Admin: 12/23/19 12:36 Dose: 2 puff Documented by: Albuterol Sulfate (Ventolin 0.083% Nebulizer Soln -) 1 amp NEB RQID [facility] Docusate Sodium (Colace -) 100 mg PO Q12H PRN PRN Reason: CONSTIPATION Enoxaparin Sodium (Lovenox -) 40 mg SQ DAILY [facility] Last Admin: 12/23/19 09:55 Dose: 40 mg Documented by: Famotidine (Pepcid -) 20 mg PO BID [facility] Last Admin: 12/23/19 09:55 Dose: 20 mg Documented by: Piperacillin Sod/Tazobactam (Sod 2.25 gm/ Dextrose) 50 mls @ 100 mls/hr IVPB Q8H-IV [facility]; Protocol Last Admin: 12/23/19 09:55 Dose: 100 mls/hr Documented by: Insulin Aspart (Novolog Vial Sliding Scale -) 1 vial SQ ACHS [facility]; Protocol Last Admin: 12/23/19 11:25 Dose: 1 unit Documented by: Levothyroxine Sodium (Synthroid -) 25 mcg PO ACBK [facility] Last Admin: 12/23/19 06:04 Dose: 25 mcg Documented by: Ondansetron HCl (Zofran Injection) 4 mg IVPUSH Q6H PRN PRN Reason: NAUSEA Fluticasone/Salmeterol (Advair 100mcg/50mcg -) 1 puff IH BID CESAR Sertraline HCl (Zoloft -) 25 mg PO HS [facility] Last Admin: 12/22/19 21:56 Dose: 25 mg Documented by: - Objective Vital Signs: Vital Signs Temperature 98.8 F 12/23/19 08:30 Pulse Rate 87 12/23/19 08:30 Respiratory Rate 22 H 12/23/19 11:28 Blood Pressure 154/87 12/23/19 08:30 O2 Sat by Pulse Oximetry (%) 94 L 12/23/19 11:28 Constitutional: Yes: No Distress, Calm Cardiovascular: Yes: S1, S2 Gastrointestinal: Yes: Normal Bowel Sounds, Soft Musculoskeletal: Yes: WNL Extremities: Yes: WNL Neurological: Yes: Alert, Oriented Psychiatric: Yes: Alert, Oriented Labs: CBC, BMP 12/23/19 06:03 12/23/19 06:03 INR, PTT INR 1.05 (0.83-1.09) 12/19/19 13:20 Assessment/Plan 84-year-old female with a history of diastolic CHF, DM 2, HTN, GI bleed secondary to bowel vascular ectasias, HLD, left ear status post TAVR, bioprosthetic MVR, asthma presented to ED with complaints of diffuse pain. Found to have UTI and acute cholecystitis. sepsis gm negative bacteremia uti lactic acidosis dm plan continue abx surgery note noted repeat blood cx result noted rest as per the team
[2019-12-23] MEDS: FLUTICASONE/SALMETEROL 100 MCG/50 MCG DISKUS IH SCH ×2 (13:41→21:30)
[2019-12-23] MEDS: ALBUTEROL SO4 0.083% IH SOL 2.5 MG/3 ML VIAL.NEB. NEB SCH ×3 (14:11→20:30)
--- NOTE | 2019-12-23 14:45 | PN ---
Teaching Attending Note Name of Resident: Onel Whaley ATTENDING PHYSICIAN STATEMENT I saw and evaluated the patient. I reviewed the resident's note and discussed the case with the resident. I agree with the resident's findings and plan as documented. SUBJECTIVE: Seen and examined at bedside. Condition unchanged. No acute complaints OBJECTIVE: Last Vital Signs Temp Pulse Resp BP Pulse Ox 98.8 F 87 22 H 154/87 94 L 12/23/19 08:30 12/23/19 08:30 12/23/19 11:28 12/23/19 08:30 12/23/19 11:28 PE: per resident note Labs/Imaging: reviewed ASSESSMENT AND PLAN: 84-year-old female with a history of diastolic CHF, DM 2, HTN, GI bleed secondary to bowel vascular ectasias, HLD, left ear status post TAVR, bioprosthetic MVR, asthma presented to ED with complaints of diffuse pain. Found to have UTI and acute cholecystitis. #Acute cholecystitis with sepsis -HIDA scan shows patent cystic duct. Cardiology recommended transfer if surgery is necessary. Will discuss necessity of possible surgery with surgical team -NPO -cont zosyn -pain control #UTI -zosyn -f/u cultures #sepsis with Ecoli bacteremia In 1/2 bottles -lactic acid resolved -urine is likely source -cont IV abx pending f/u blood culture -ID consulted -f/u cultures #DM -hold oral meds -VIPUL -start long acting insulin tomorrow #Hx taver, MVR bioprosthetic, CHF -cardiology consulted -continue home meds for now DVTppx: lovenox
--- NOTE | 2019-12-23 14:59 | PN ---
Physical Exam: SUBJECTIVE: Patient seen and examined at the bedside, endorses RLQ abdominal pain OBJECTIVE: Vital Signs Period Temp Pulse Resp BP Sys/Jose Pulse Ox Last 24 Hr 98.2 F-98.8 F 74-87 20-22 127-154/59-87 94-99 GENERAL: AOx3 HEAD: Normal with no signs of trauma. EYES: PERRL, extraocular movements intact, sclera anicteric, conjunctiva clear. No ptosis. NECK: Trachea midline, full range of motion, supple. LUNGS: Decreased air movement BL with expiratory wheezing HEART: Regular rate and rhythm, S1, S2 without murmur, rub or gallop. ABDOMEN: Soft, non-distended, mild RLQ as well as suprapbic tenderness, no rebound tenderness EXTREMITIES: 2+ pulses, warm, well-perfused, no edema. NEUROLOGICAL: Cranial nerves II through XII grossly intact. Normal speech, gait not observed. PSYCH: Normal mood, normal affect. SKIN: Warm, dry, normal turgor, no rashes or lesions noted Laboratory Results - last 24 hr 12/22/19 12/22/19 12/23/19 16:16 21:54 06:02 WBC RBC Hgb Hct MCV MCH MCHC RDW Plt Count MPV Absolute Neuts (auto) Neutrophils % Lymphocytes % Monocytes % Eosinophils % Basophils % Nucleated RBC % Sodium Potassium Chloride Carbon Dioxide Anion Gap BUN Creatinine Est GFR (CKD-EPI)AfAm Est GFR (CKD-EPI)NonAf POC Glucometer 189 149 146 Random Glucose Calcium Phosphorus Magnesium Total Bilirubin AST ALT Alkaline Phosphatase Total Protein Albumin 12/23/19 12/23/19 12/23/19 06:03 06:03 11:11 WBC 6.6 RBC 3.29 L Hgb 9.9 L Hct 29.5 L MCV 89.9 MCH 30.1 MCHC 33.5 RDW 14.3 Plt Count 201 MPV 8.4 Absolute Neuts (auto) 4.6 Neutrophils % 69.5 Lymphocytes % 14.2 Monocytes % 14.5 H Eosinophils % 1.1 Basophils % 0.7 Nucleated RBC % 0 Sodium 139 Potassium 4.3 Chloride 101 Carbon Dioxide 32 Anion Gap 6 L BUN 10.0 Creatinine 0.7 Est GFR (CKD-EPI)AfAm 91.57 Est GFR (CKD-EPI)NonAf 79.00 POC Glucometer 178 Random Glucose 148 H Calcium 8.9 Phosphorus 2.6 Magnesium 2.1 Total Bilirubin 0.5 AST 20 ALT 22 Alkaline Phosphatase 79 Total Protein 6.3 L Albumin 2.9 L Active Medications Generic Name Dose Route Start Last Admin Trade Name Freq PRN Reason Stop Dose Admin Acetaminophen 650 mg 12/22/19 04:59 12/22/19 21:56 Tylenol - PO 650 mg Q4H PRN Administration PAIN LEVEL 4 - 6 Albuterol Sulfate 2 puff 12/20/19 11:56 12/23/19 12:36 Ventolin Hfa Inhaler - IH 2 puff Q4H PRN Administration SHORT OF BREATH/WHEEZING Albuterol Sulfate 1 amp 12/23/19 12:15 12/23/19 14:11 Ventolin 0.083% Nebulizer Soln - NEB Not Given RQID CESAR Docusate Sodium 100 mg 12/19/19 17:39 Colace - PO Q12H PRN CONSTIPATION Enoxaparin Sodium 40 mg 12/20/19 10:00 12/23/19 09:55 Lovenox - SQ 40 mg DAILY CESAR Administration Famotidine 20 mg 12/20/19 22:00 12/23/19 09:55 Pepcid - PO 20 mg BID CESAR Administration Piperacillin Sod/Tazobactam 50 mls @ 100 mls/hr 12/20/19 15:00 12/23/19 09:55 Sod 2.25 gm/ Dextrose IVPB 100 mls/hr Q8H-IV CESAR Administration Protocol Insulin Aspart 1 vial 12/20/19 16:30 12/23/19 11:25 Novolog Vial Sliding Scale - SQ 1 unit ACHS CESAR Administration Protocol Levothyroxine Sodium 25 mcg 12/21/19 07:00 12/23/19 06:04 Synthroid - PO 25 mcg ACBK CESAR Administration Ondansetron HCl 4 mg 12/19/19 17:42 Zofran Injection IVPUSH Q6H PRN NAUSEA Fluticasone/Salmeterol 1 puff 12/23/19 12:15 12/23/19 13:41 Advair 100mcg/50mcg - IH 1 puff BID CESAR Administration Sertraline HCl 25 mg 12/20/19 22:00 12/22/19 21:56 Zoloft - PO 25 mg HS CESAR Administration ASSESSMENT/PLAN: 84F with PMH of HF, DM/HTN/HLD, (TAVR/MVR), hypothyroidism, and asthma/COPD, presented to the ER with RLQ abdominal pain, low grade fevers, and dysuria for 3 days. Was found to have acute cholecystitis on US. #Acute Cholecystitis, Sepsis - US: Multiple gallstones, HIDA: Excludes acute cystic duct obstruction - Conservative management as per surgery - Continue IV Zosyn 2.25mg Q8 (12/19) - Blood cultures NG in 3 d, Ucx positive for E coli (resistant ro Unasyn, will call Micro to confirm susceptibility to Augmentin) - ID: Continue abx - Tylenol for pain control #UTI - UA Prot 2+, Blood 1+, Nitrite +, LE 3+ - UCx positive for E.coli - On IV Zosyn #Hx of HF/HTN/HLD - Last Echo: May 13, LVEF "normal" - Holding home Losartan due to normal BP - Resumed home Lipitor #Hx of DM - BGM, low dose ISS #Hx of hypothyroidism - Levothyroxine resumed #Hx of COPD/asthma - Ventolin CESAR and Advair #FEN - Started on Soft diet this AM #Prophylaxis - Lovenox 40mg #Disp - Monitor in [place] for now, Visit type - Emergency Visit Emergency Visit: No - New Patient This patient is new to me today: No - Critical Care Critical Care patient: No ATTENDING PHYSICIAN STATEMENT I saw and evaluated the patient. I reviewed the resident's note and discussed the case with the resident. I agree with the resident's findings and plan as documented. SUBJECTIVE: OBJECTIVE: ASSESSMENT AND PLAN:
[2019-12-23] MEDS: ACETAMINOPHEN 325 MG TABLET (FP) PO PRN (17:06)
[2019-12-23] MEDS: SERTRALINE HCL 25 MG TABLET (FP) PO SCH (21:36)
[2019-12-24] MEDS ORDERED: DEXTROSE 5%-WATER - 50 ML IVPB ONE ×3 (01:41→17:27)
[2019-12-24] MEDS ORDERED: PIPERACILLIN/TAZOBACTAM 2.25 GM VIAL IVPB ONE ×3 (01:41→17:27)
[2019-12-24] MEDS: PIPERACILLIN/TAZOB 2.25 GM 2.25 GM in DEXTROSE 5%-WATER - 50 ML IVPB SCH ×3 (01:44→17:34)
[2019-12-24] MEDS: LEVOTHYROXINE NA 25 MCG TABLET (FP) PO SCH (06:30)
[2019-12-24] MEDS: INSULIN SLIDING SCALE (NOVOLOG) 1 VIAL SQ SCH ×4 (06:31→21:55)
[2019-12-24] MEDS: ALBUTEROL SO4 0.083% IH SOL 2.5 MG/3 ML VIAL.NEB. NEB SCH ×4 (07:40→20:35)
--- NOTE | 2019-12-24 08:40 | PN ---
Teaching Attending Note Name of Resident: Danyelle Ng ATTENDING PHYSICIAN STATEMENT I saw and evaluated the patient. I reviewed the resident's note and discussed the case with the resident. I agree with the resident's findings and plan as documented. SUBJECTIVE: Seen and examined at bedside. Patient now having diarrhea. C. difficile sent and Flagyl added. Lungs are clear today after starting asthma medication OBJECTIVE: Last Vital Signs Temp Pulse Resp BP Pulse Ox 99.1 F 92 H 20 172/89 H 95 12/24/19 06:00 12/24/19 06:00 12/24/19 06:00 12/24/19 06:00 12/24/19 06:00 PE: per resident note Labs/Imaging: reviewed ASSESSMENT AND PLAN: 84-year-old female with a history of diastolic CHF, DM 2, HTN, GI bleed secondary to bowel vascular ectasias, HLD, left ear status post TAVR, bioprosthetic MVR, asthma presented to ED with complaints of diffuse pain. Found to have UTI and acute cholecystitis. #Acute cholecystitis with sepsis -HIDA scan shows patent cystic duct. Cardiology recommended transfer if surgery is necessary. Will discuss necessity of possible surgery with surgical team -NPO -cont zosyn -pain control #UTI -zosyn -f/u cultures #diarrhea Likely 2/2 to IV abx, however, will r/o Cdiff -add flagyl -check Cdiff #sepsis with Ecoli bacteremia In 1/2 bottles -lactic acid resolved -urine is likely source -cont IV abx pending f/u blood culture -ID consulted -f/u cultures #DM -hold oral meds -VIPUL -start long acting insulin tomorrow #Hx taver, MVR bioprosthetic, CHF -cardiology consulted -continue home meds for now DVTppx: lovenox
--- NOTE | 2019-12-24 09:31 | PN ---
Progress Note, Physician History of Present Illness: having dirrhoea wants to walk abd pain resolved - Current Medication List Current Medications: Active Medications Acetaminophen (Tylenol -) 650 mg PO Q4H PRN PRN Reason: PAIN LEVEL 4 - 6 Last Admin: 12/23/19 17:06 Dose: 650 mg Documented by: Albuterol Sulfate (Ventolin Hfa Inhaler -) 2 puff IH Q4H PRN PRN Reason: SHORT OF BREATH/WHEEZING Last Admin: 12/23/19 12:36 Dose: 2 puff Documented by: Albuterol Sulfate (Ventolin 0.083% Nebulizer Soln -) 1 amp NEB RQID [facility] Last Admin: 12/24/19 07:40 Dose: 1 amp Documented by: Docusate Sodium (Colace -) 100 mg PO Q12H PRN PRN Reason: CONSTIPATION Enoxaparin Sodium (Lovenox -) 40 mg SQ DAILY [facility] Last Admin: 12/23/19 09:55 Dose: 40 mg Documented by: Famotidine (Pepcid -) 20 mg PO BID [facility] Last Admin: 12/23/19 21:32 Dose: 20 mg Documented by: Piperacillin Sod/Tazobactam (Sod 2.25 gm/ Dextrose) 50 mls @ 100 mls/hr IVPB Q8H-IV [facility]; Protocol Last Admin: 12/24/19 01:44 Dose: 100 mls/hr Documented by: Insulin Aspart (Novolog Vial Sliding Scale -) 1 vial SQ ACHS [facility]; Protocol Last Admin: 12/24/19 06:31 Dose: 1 unit Documented by: Levothyroxine Sodium (Synthroid -) 25 mcg PO ACBK [facility] Last Admin: 12/24/19 06:30 Dose: 25 mcg Documented by: Losartan Potassium (Cozaar -) 50 mg PO DAILY [facility] Ondansetron HCl (Zofran Injection) 4 mg IVPUSH Q6H PRN PRN Reason: NAUSEA Fluticasone/Salmeterol (Advair 100mcg/50mcg -) 1 puff IH BID [facility] Last Admin: 12/23/19 21:30 Dose: 1 puff Documented by: Sertraline HCl (Zoloft -) 25 mg PO HS [facility] Last Admin: 12/23/19 21:36 Dose: 25 mg Documented by: - Objective Vital Signs: Vital Signs Temperature 99.1 F 06/29/20 06:00 Pulse Rate 92 H 12/24/19 06:00 Respiratory Rate 20 12/24/19 06:00 Blood Pressure 172/89 H 12/24/19 06:00 O2 Sat by Pulse Oximetry (%) 95 12/24/19 06:00 Constitutional: Yes: Calm, Mild Distress Cardiovascular: Yes: S1, S2 Respiratory: Yes: Regular, CTA Bilaterally Gastrointestinal: Yes: Normal Bowel Sounds, Soft Musculoskeletal: Yes: WNL Extremities: Yes: WNL Neurological: Yes: Alert, Oriented Psychiatric: Yes: Alert, Oriented Labs: CBC, BMP 12/23/19 06:03 12/23/19 06:03 INR, PTT INR 1.05 (0.83-1.09) 12/19/19 13:20 Assessment/Plan 84-year-old female with a history of diastolic CHF, DM 2, HTN, GI bleed secondary to bowel vascular ectasias, HLD, left ear status post TAVR, biopr osthetic MVR, asthma presented to ED with complaints of diffuse pain. Found to have UTI and acute cholecystitis. sepsis gm negative bacteremia uti lactic acidosis dm dirrhoea plan continue abx stool for cdiff add flagyl rest as per gthe team
--- NOTE | 2019-12-24 09:40 | PN ---
Progress Note, Physician History of Present Illness: OOB in chair, reports dyspnea, abd pain and diarrhea improving, IVF d/[place]. - Current Medication List Current Medications: Active Medications Acetaminophen (Tylenol -) 650 mg PO Q4H PRN PRN Reason: PAIN LEVEL 4 - 6 Last Admin: 12/23/19 17:06 Dose: 650 mg Documented by: Albuterol Sulfate (Ventolin Hfa Inhaler -) 2 puff IH Q4H PRN PRN Reason: SHORT OF BREATH/WHEEZING Last Admin: 12/23/19 12:36 Dose: 2 puff Documented by: Albuterol Sulfate (Ventolin 0.083% Nebulizer Soln -) 1 amp NEB RQID [facility] Last Admin: 12/24/19 07:40 Dose: 1 amp Documented by: Docusate Sodium (Colace -) 100 mg PO Q12H PRN PRN Reason: CONSTIPATION Enoxaparin Sodium (Lovenox -) 40 mg SQ DAILY [facility] Last Admin: 12/23/19 09:55 Dose: 40 mg Documented by: Famotidine (Pepcid -) 20 mg PO BID [facility] Last Admin: 12/23/19 21:32 Dose: 20 mg Documented by: Piperacillin Sod/Tazobactam (Sod 2.25 gm/ Dextrose) 50 mls @ 100 mls/hr IVPB Q8H-IV [facility]; Protocol Last Admin: 12/24/19 01:44 Dose: 100 mls/hr Documented by: Insulin Aspart (Novolog Vial Sliding Scale -) 1 vial SQ ACHS [facility]; Protocol Last Admin: 12/24/19 06:31 Dose: 1 unit Documented by: Levothyroxine Sodium (Synthroid -) 25 mcg PO ACBK [facility] Last Admin: 12/24/19 06:30 Dose: 25 mcg Documented by: Losartan Potassium (Cozaar -) 50 mg PO DAILY [facility] Ondansetron HCl (Zofran Injection) 4 mg IVPUSH Q6H PRN PRN Reason: NAUSEA Fluticasone/Salmeterol (Advair 100mcg/50mcg -) 1 puff IH BID [facility] Last Admin: 12/23/19 21:30 Dose: 1 puff Documented by: Sertraline HCl (Zoloft -) 25 mg PO HS [facility] Last Admin: 12/23/19 21:36 Dose: 25 mg Documented by: - Objective Vital Signs: Vital Signs Temperature 99.1 F 12/24/19 06:00 Pulse Rate 92 H 12/24/19 06:00 Respiratory Rate 20 12/24/19 06:00 Blood Pressure 172/89 H 12/24/19 06:00 O2 Sat by Pulse Oximetry (%) 95 12/24/19 06:00 Constitutional: Yes: No Distress, Calm Neck: Yes: Supple Cardiovascular: Yes: Regular Rate and Rhythm Respiratory: Yes: Regular, Diminished, On Nasal O2 Gastrointestinal: Yes: Normal Bowel Sounds, Soft, Abdomen, Obese Edema: No Labs: CBC, BMP 12/23/19 06:03 12/23/19 06:03 INR, PTT INR 1.05 (0.83-1.09) 12/19/19 13:20 Problem List - Problems (1) Sepsis Code(s): A41.9 - SEPSIS, UNSPECIFIED ORGANISM Qualifiers: Qualified Code(s): A41.9 - Sepsis, unspecified organism (2) UTI (urinary tract infection) Code(s): N39.0 - URINARY TRACT INFECTION, SITE NOT SPECIFIED Qualifiers: Qualified Code(s): N30.00 - Acute cystitis without hematuria (3) S/P mitral valve replacement Code(s): Z95.2 - PRESENCE OF PROSTHETIC HEART VALVE (4) Aortic stenosis Code(s): I35.0 - NONRHEUMATIC AORTIC (VALVE) STENOSIS Qualifiers: Qualified Code(s): I35.0 - Nonrheumatic aortic (valve) stenosis (5) CAD (coronary artery disease) Code(s): I25.10 - ATHSCL HEART DISEASE OF [place] CORONARY ARTERY W/O ANG PCTRS Qualifiers: Qualified Code(s): I25.10 - Atherosclerotic heart disease of [place] coronary artery without angina pectoris (6) COPD (chronic obstructive pulmonary disease) Code(s): J44.9 - CHRONIC OBSTRUCTIVE PULMONARY DISEASE, UNSPECIFIED Qualifiers: Qualified Code(s): J44.9 - Chronic obstructive pulmonary disease, unspecified (7) Diastolic CHF due to valvular disease Code(s): I38 - ENDOCARDITIS, VALVE UNSPECIFIED; I50.30 - UNSPECIFIED DIASTOLIC (CONGESTIVE) HEART FAILURE (8) HTN (hypertension) Code(s): I10 - ESSENTIAL (PRIMARY) HYPERTENSION Qualifiers: Qualified Code(s): I10 - Essential (primary) hypertension (9) Hyperlipidemia Code(s): E78.5 - HYPERLIPIDEMIA, UNSPECIFIED Qualifiers: Qualified Code(s): E78.00 - Pure hypercholesterolemia, unspecified; E78.0 - Pure hypercholesterolemia (10) Hypothyroid Code(s): E03.9 - HYPOTHYROIDISM, UNSPECIFIED Qualifiers: Qualified Code(s): E03.9 - Hypothyroidism, unspecified (11) Pulmonary hypertension Code(s): I27.2 - OTHER SECONDARY PULMONARY HYPERTENSION * DO NOT USE * (12) S/P TAVR (transcatheter aortic valve replacement) Code(s): Z95.2 - PRESENCE OF PROSTHETIC HEART VALVE (13) GI bleed Code(s): K92.2 - GASTROINTESTINAL HEMORRHAGE, UNSPECIFIED Qualifiers: Qualified Code(s): K31.811 - Angiodysplasia of stomach and duodenum with bleeding (14) Diarrhea Code(s): R19.7 - DIARRHEA, UNSPECIFIED Qualifiers: Qualified Code(s): R19.7 - Diarrhea, unspecified (15) Shortness of breath Code(s): R06.02 - SHORTNESS OF BREATH (16) UTI (urinary tract infection) Code(s): N39.0 - URINARY TRACT INFECTION, SITE NOT SPECIFIED Qualifiers: Qualified Code(s): N39.0 - Urinary tract infection, site not specified Assessment/Plan HIDA negative -UTI, E Coli bacteremia, ruled out acute cholecystitis -S/P TAVR and later MVR (Bio) -DCHF -HTN -HLD -Type 2 DM -Hypothyroidism -Diarrhea r/o c. diff -GI bleed secondary to bowel vascular ectasias Plan: -At this time cont antibiotic course per ID and primary team, f/u c. diff, surveillance cultures NGTD thus far -vigilant for IE -DVT prophylaxis -continue losartan 50 qd, resume carvedilol 3.125 bid with uptitration as hem odynamics tolerate, diuresis as needed, agree with d/c IVF
[2019-12-24] MEDS: ENOXAPARIN NA (PORCINE) 40 MG/0.4 ML DISP.SYRIN SQ SCH (09:53)
[2019-12-24] MEDS: FAMOTIDINE 20 MG TABLET PO SCH ×2 (09:53→21:44)
[2019-12-24] MEDS: LOSARTAN POTASSIUM 50 MG TABLET (FP) PO SCH (09:53)
[2019-12-24] MEDS: FLUTICASONE/SALMETEROL 100 MCG/50 MCG DISKUS IH SCH ×2 (09:54→21:44)
--- NOTE | 2019-12-24 11:54 | PN ---
Physical Exam: SUBJECTIVE: Patient seen and examined at bedside this morning, No acute events overnight. Patient was reported to have loose bowel movements this morning. Denies fevers, chills, headache, dizziness, chest pain, SOB, abdominal pain, urinary symptoms. OBJECTIVE: Vital Signs Temperature 98.9 F 12/24/19 10:52 Pulse Rate 93 H 12/24/19 10:52 Respiratory Rate 24 H 12/24/19 10:52 Blood Pressure 133/70 12/24/19 10:52 O2 Sat by Pulse Oximetry (%) 95 12/24/19 09:00 GENERAL: The patient is awake, alert, and fully oriented, in no acute distress. HEAD: Normal with no signs of trauma. EYES: PERRLA, EOMI, sclera anicteric, conjunctiva clear. ENT:moist mucous membranes. NECK: Trachea midline, full range of motion, supple. LUNGS: Minimal wheezing bilaterally HEART: Regular rate and rhythm, S1, S2 ABDOMEN: Soft, nontender, mildly distended, hyperactive bowel sounds. EXTREMITIES: 2+ pulses, warm, well-perfused, no edema. NEUROLOGICAL: Cranial nerves II through XII grossly intact. Normal speech. PSYCH: Normal mood, normal affect. SKIN: Warm, dry, normal turgor. Laboratory Results - last 24 hr 12/23/19 12/23/19 12/24/19 15:59 21:03 05:35 POC Glucometer 187 199 180 Active Medications Generic Name Dose Route Start Last Admin Trade Name Freq PRN Reason Stop Dose Admin Acetaminophen 650 mg 12/22/19 04:59 12/23/19 17:06 Tylenol - PO 650 mg Q4H PRN Administration PAIN LEVEL 4 - 6 Albuterol Sulfate 2 puff 12/20/19 11:56 12/23/19 12:36 Ventolin Hfa Inhaler - IH 2 puff Q4H PRN Administration SHORT OF BREATH/WHEEZING Albuterol Sulfate 1 amp 12/23/19 12:15 12/24/19 07:40 Ventolin 0.083% Nebulizer Soln - NEB 1 amp RQID [facility] Administration Docusate Sodium 100 mg 12/19/19 17:39 Colace - PO Q12H PRN CONSTIPATION Enoxaparin Sodium 40 mg 12/20/19 10:00 12/24/19 09:53 Lovenox - SQ 40 mg DAILY [facility] Administration Famotidine 20 mg 12/20/19 22:00 12/24/19 09:53 Pepcid - PO 20 mg BID [facility] Administration Piperacillin Sod/Tazobactam 50 mls @ 100 mls/hr 12/20/19 15:00 12/24/19 09:53 Sod 2.25 gm/ Dextrose IVPB 100 mls/hr Q8H-IV [facility] Administration Protocol Insulin Aspart 1 vial 12/20/19 16:30 12/24/19 06:31 Novolog Vial Sliding Scale - SQ 1 unit ACHS [facility] Administration Protocol Levothyroxine Sodium 25 mcg 12/21/19 07:00 12/24/19 06:30 Synthroid - PO 25 mcg ACBK [facility] Administration Losartan Potassium 50 mg 12/24/19 10:00 12/24/19 09:53 Cozaar - PO 50 mg DAILY [facility] Administration Ondansetron HCl 4 mg 12/19/19 17:42 Zofran Injection IVPUSH Q6H PRN NAUSEA Fluticasone/Salmeterol 1 puff 12/23/19 12:15 12/24/19 09:54 Advair 100mcg/50mcg - IH 1 puff BID [facility] Administration Sertraline HCl 25 mg 12/20/19 22:00 12/23/19 21:36 Zoloft - PO 25 mg HS [facility] Administration ASSESSMENT/PLAN: Patient is an 84 year old female with PMH of HF, DM/HTN/HLD, (TAVR/MVR), hyp othyroidism, and asthma/COPD, presented to the ER with RLQ abdominal pain, low grade fevers, and dysuria for 3 days. Was found to have acute cholecystitis on US. #Acute Cholecystitis - presented with sepsis, now resolved - US: Multiple gallstones with wall thickening and trace pericholecystic fluid suspicious for acute cholecystitis, limited visualization of pancreas - HIDA scan: filling of gallbladder excluded acute cystic duct obstruction - Continue IV Zosyn 2.25mg q8h, day 5 - Blood cultures positive for E coli on 1 bottle - Repeat blood cultures negative - As per ID, to complete 7 days of Zosyn, then may transition to PO Cefpodoxime and Flagyl - Patient to follow up with surgery as outpatient as she would likely need to have surgery in 6-8 weeks once cholecystitis resolves - Tylenol for pain control - ID (Dr Serrano) consulted. Recommendations appreciated. - Surgery (Dr. Escobar) consulted - HIDA scan negative. Treat conservatively for now - May opt for elective surgery at a tertiary care center due to high risk - Cardiology consulted. Recommendations appreciated #UTI - UA Prot 2+, Blood 1+, Nitrite +, LE 3+ - UCx positive for E.coli, resistant to Unasyn - On Iv Zosyn #Diarrhea - stool sent for C. Diff studies - will continue to monitor #Hx of HF/HTN/HLD - Last Echo: May 13, LVEF "normal" - Cardio consulted. Recommendations appreciated. - Continue Losartan 50mg daily - Resume carvedilol 3.125 bid with uptitration as hemodynamics tolerate - Resumed home Lipitor #Hx of DM - BGM, low dose ISS - Will start on long acting insulin tomorrow #Hx of hypothyroidism - Levothyroxine resumed #Hx of COPD/asthma - Home inhalers resumed #FEN - Not on any standing fluids - Electrolytes wnl, routine bmp monitoring - Tolerated clear liquid, will advance diet as tolerated #Prophylaxis - Lovenox 40mg sq daily #Disp - med surg Visit type - Emergency Visit Emergency Visit: Yes ED Registration Date: 12/19/19 Care time: The patient presented to the Emergency Department on the above date and was hospitalized for further evaluation of their emergent condition. - New Patient This patient is new to me today: No - Critical Care Critical Care patient: No ATTENDING PHYSICIAN STATEMENT I saw and evaluated the patient. I reviewed the resident's note and discussed the case with the resident. I agree with the resident's findings and plan as documented. SUBJECTIVE: OBJECTIVE: ASSESSMENT AND PLAN:
[2019-12-24] MEDS ORDERED: INSULIN (NOVOLOG) ASPART 100 UNITS/ML 10ML VIAL ONE (12:05)
[2019-12-24] MEDS: CARVEDILOL 3.125 MG TABLET (FP) PO SCH ×2 (12:13→21:44)
[2019-12-24] MEDS ORDERED: FUROSEMIDE 40 MG/4 ML INJECTABLE VIAL IVPUSH ONE (12:15)
[2019-12-24 16:03] LABS: BLOOD UREA NITROGEN 9.5 mg/dL (7-18); CALCIUM 9.5 mg/dL (8.5-10.1); CREATININE 0.8 mg/dL (0.55-1.3); POTASSIUM 4.1 mmol/L (3.5-5.1)
[2019-12-24] MEDS: SERTRALINE HCL 25 MG TABLET (FP) PO SCH (21:44)
[2019-12-24] MEDS: ACETAMINOPHEN 325 MG TABLET (FP) PO PRN (21:44)
[2019-12-25] MEDS ORDERED: PIPERACILLIN/TAZOBACTAM 2.25 GM VIAL IVPB ONE ×3 (01:23→17:14)
[2019-12-25] MEDS ORDERED: DEXTROSE 5%-WATER - 50 ML IVPB ONE ×3 (01:23→17:14)
[2019-12-25] MEDS: PIPERACILLIN/TAZOB 2.25 GM 2.25 GM in DEXTROSE 5%-WATER - 50 ML IVPB SCH ×3 (01:30→17:22)
[2019-12-25] MEDS: LEVOTHYROXINE NA 25 MCG TABLET (FP) PO SCH (06:08)
[2019-12-25] MEDS: INSULIN SLIDING SCALE (NOVOLOG) 1 VIAL SQ SCH ×4 (06:08→21:39)
[2019-12-25 08:20] LABS: MAGNESIUM 2.1 mg/dL (1.8-2.4); PHOSPHOROUS 3.4 mg/dL (2.5-4.9)
[2019-12-25] MEDS: ALBUTEROL SO4 0.083% IH SOL 2.5 MG/3 ML VIAL.NEB. NEB SCH ×4 (08:47→20:47)
[2019-12-25 08:49] LABS: BLOOD UREA NITROGEN 12.7 mg/dL (7-18); CALCIUM 8.9 mg/dL (8.5-10.1); CREATININE 0.9 mg/dL (0.55-1.3); POTASSIUM 3.8 mmol/L (3.5-5.1)
[2019-12-25] MEDS: ENOXAPARIN NA (PORCINE) 40 MG/0.4 ML DISP.SYRIN SQ SCH (10:09)
[2019-12-25] MEDS: LOSARTAN POTASSIUM 50 MG TABLET (FP) PO SCH (10:09)
[2019-12-25] MEDS: FLUTICASONE/SALMETEROL 100 MCG/50 MCG DISKUS IH SCH ×2 (10:09→21:28)
[2019-12-25] MEDS: CARVEDILOL 3.125 MG TABLET (FP) PO SCH ×2 (10:09→21:29)
[2019-12-25] MEDS: FAMOTIDINE 20 MG TABLET PO SCH ×2 (10:09→21:29)
[2019-12-25] MEDS ORDERED: INSULIN (NOVOLOG) ASPART 100 UNITS/ML 10ML VIAL ONE ×2 (11:21→17:13)
[2019-12-25 12:16] VITALS: BMI 34.2
--- NOTE | 2019-12-25 12:18 | PN ---
Physical Exam: SUBJECTIVE: Patient seen and examined at bedside this morning, No acute events overnight. Patient on 2L NC saturating >95%. On room air, desatted to 80%. Was able to get a hold of patient's neighbor, Ms Leonela Urias, and she reported patient was not on home oxygen. Patient otherwise reports feeling well and has no complaints. OBJECTIVE: Vital Signs Temperature 98.3 F 12/25/19 06:40 Pulse Rate 80 12/25/19 06:40 Respiratory Rate 12/25/19 06:40 Blood Pressure 156/76 12/25/19 06:40 O2 Sat by Pulse Oximetry (%) 98 12/25/19 06:00 GENERAL: The patient is awake, alert, and fully oriented, in no acute distress. HEAD: Normal with no signs of trauma. EYES: PERRLA, EOMI, sclera anicteric, conjunctiva clear. ENT:moist mucous membranes. NECK: Trachea midline, full range of motion, supple. LUNGS: Clear to auscultation bilaterally HEART: Regular rate and rhythm, S1, S2 ABDOMEN: Soft, nontender, mildly distended, normoactive bowel sounds. EXTREMITIES: 2+ pulses, warm, well-perfused, no edema. NEUROLOGICAL: Cranial nerves II through XII grossly intact. Normal speech. PSYCH: Normal mood, normal affect. SKIN: Warm, dry, normal turgor. Laboratory Results - last 24 hr 12/24/19 12/24/19 12/24/19 15:00 17:41 21:53 Sodium 137 Potassium 4.1 Chloride 94 L Carbon Dioxide 36 H Anion Gap 7 L BUN 9.5 Creatinine 0.8 Est GFR (CKD-EPI)AfAm 77.92 Est GFR (CKD-EPI)NonAf 67.23 POC Glucometer 170 168 Random Glucose 220 H Calcium 9.5 Phosphorus Magnesium 12/25/19 12/25/19 12/25/19 06:05 06:48 11:26 Sodium 140 Potassium 3.8 Chloride 96 L Carbon Dioxide 36 H Anion Gap 8 BUN 12.7 Creatinine 0.9 Est GFR (CKD-EPI)AfAm 67.57 Est GFR (CKD-EPI)NonAf 58.30 POC Glucometer 156 213 Random Glucose 155 H Calcium 8.9 Phosphorus 3.4 Magnesium 2.1 Active Medications Generic Name Dose Route Start Last Admin Trade Name Freq PRN Reason Stop Dose Admin Acetaminophen 650 mg 12/22/19 04:59 12/24/19 21:44 Tylenol - PO 650 mg Q4H PRN Administration PAIN LEVEL 4 - 6 Albuterol Sulfate 2 puff 12/20/19 11:56 12/23/19 12:36 Ventolin Hfa Inhaler - IH 2 puff Q4H PRN Administration SHORT OF BREATH/WHEEZING Albuterol Sulfate 1 amp 12/23/19 12:15 12/25/19 12:01 Ventolin 0.083% Nebulizer Soln - NEB 1 amp RQID [facility] Administration Carvedilol 3.125 mg 12/24/19 12:00 12/25/19 10:09 Coreg - PO 3.125 mg BID [facility] Administration Enoxaparin Sodium 40 mg 12/20/19 10:00 12/25/19 10:09 Lovenox - SQ 40 mg DAILY [facility] Administration Famotidine 20 mg 12/20/19 22:00 12/25/19 10:09 Pepcid - PO 20 mg BID [facility] Administration Piperacillin Sod/Tazobactam 50 mls @ 100 mls/hr 12/20/19 15:00 12/25/19 10:09 Sod 2.25 gm/ Dextrose IVPB 100 mls/hr Q8H-IV [facility] Administration Protocol Insulin Aspart 1 vial 12/20/19 16:30 12/25/19 11:27 Novolog Vial Sliding Scale - SQ 2 unit ACHS [facility] Administration Protocol Levothyroxine Sodium 25 mcg 12/21/19 07:00 12/25/19 06:08 Synthroid - PO 25 mcg ACBK [facility] Administration Losartan Potassium 50 mg 12/24/19 10:00 12/25/19 10:09 Cozaar - PO 50 mg DAILY [facility] Administration Ondansetron HCl 4 mg 12/19/19 17:42 Zofran Injection IVPUSH Q6H PRN NAUSEA Fluticasone/Salmeterol 1 puff 12/23/19 12:15 12/25/19 10:09 Advair 100mcg/50mcg - IH 1 puff BID [facility] Administration Sertraline HCl 25 mg 12/20/19 22:00 12/24/19 21:44 Zoloft - PO 25 mg HS [facility] Administration ASSESSMENT/PLAN: Patient is an 84 year old female with PMH of HF, DM/HTN/HLD, (TAVR/MVR), hypothyroidism, and asthma/COPD, presented to the ER with RLQ abdominal pain, low grade fevers, and dysuria for 3 days. Was found to have acute cholecystitis on US. #Acute Cholecystitis - presented with sepsis, now resolved - US: Multiple gallstones with wall thickening and trace pericholecystic fluid suspicious for acute cholecystitis, limited visualization of pancreas - HIDA scan: filling of gallbladder excluded acute cystic duct obstruction - Continue IV Zosyn 2.25mg q8h, day 6 - Blood cultures positive for E coli on 1 bottle. Repeat blood cultures negative - As per ID, to complete 7 days of Zosyn, then may transition to PO Cefpodoxime and Flagyl for 1 week. - Patient to follow up with surgery as outpatient as she would likely need to have surgery in 6-8 weeks once cholecystitis resolves - Tylenol for pain control - ID (Dr Serrano) consulted. Recommendations appreciated. - Surgery (Dr. Escobar) consulted - HIDA scan negative. Treat conservatively for now - May opt for elective surgery at a tertiary care center due to high risk - Cardiology consulted. Recommendations appreciated #UTI - UA Prot 2+, Blood 1+, Nitrite +, LE 3+ - UCx positive for E.coli, resistant to Unasyn - On Iv Zosyn #Acute hypoxic respiratory failure - patient saturating 80% on room air - has history of asthma and COPD, but previously not on home oxygen, as confirmed by patient's neighbor, Leonela - will order Chest CTA to rule out PE #Diarrhea - improved - C. Diff studies negative #Hx of HF/HTN/HLD - Last Echo: May 13, LVEF "normal" - Cardio consulted. Recommendations appreciated. - Continue Losartan 50mg daily - Resume carvedilol 3.125 bid with uptitration as hemodynamics tolerate - Resumed home Lipitor #Hx of DM - BGM, low dose ISS #Hx of hypothyroidism - Levothyroxine resumed #Hx of COPD/asthma - Home inhalers resumed #FEN - Not on any standing fluids - Electrolytes wnl, routine bmp monitoring - Soft diet #Prophylaxis - Lovenox 40mg sq daily #Disp - med surg - for likely dc tomorrow to [facility] ([facility]) Visit type - Emergency Visit Emergency Visit: Yes ED Registration Date: 12/19/19 Care time: The patient presented to the Emergency Department on the above date and was hospitalized for further evaluation of their emergent condition. - New Patient This patient is new to me today: No - Critical Care Critical Care patient: No ATTENDING PHYSICIAN STATEMENT I saw and evaluated the patient. I reviewed the resident's note and discussed the case with the resident. I agree with the resident's findings and plan as documented. SUBJECTIVE: OBJECTIVE: ASSESSMENT AND PLAN:
--- NOTE | 2019-12-25 12:44 | PN ---
Progress Note, Physician History of Present Illness: no specific complaints cdiff negative - Current Medication List Current Medications: Active Medications Acetaminophen (Tylenol -) 650 mg PO Q4H PRN PRN Reason: PAIN LEVEL 4 - 6 Last Admin: 12/24/19 21:44 Dose: 650 mg Documented by: Albuterol Sulfate (Ventolin Hfa Inhaler -) 2 puff IH Q4H PRN PRN Reason: SHORT OF BREATH/WHEEZING Last Admin: 12/23/19 12:36 Dose: 2 puff Documented by: Albuterol Sulfate (Ventolin 0.083% Nebulizer Soln -) 1 amp NEB RQID [facility] Last Admin: 12/25/19 12:01 Dose: 1 amp Documented by: Carvedilol (Coreg -) 3.125 mg PO BID [facility] Last Admin: 12/25/19 10:09 Dose: 3.125 mg Documented by: Enoxaparin Sodium (Lovenox -) 40 mg SQ DAILY [facility] Last Admin: 12/25/19 10:09 Dose: 40 mg Documented by: Famotidine (Pepcid -) 20 mg PO BID [facility] Last Admin: 12/25/19 10:09 Dose: 20 mg Documented by: Piperacillin Sod/Tazobactam (Sod 2.25 gm/ Dextrose) 50 mls @ 100 mls/hr IVPB Q8H-IV [facility]; Protocol Last Admin: 12/25/19 10:09 Dose: 100 mls/hr Documented by: Insulin Aspart (Novolog Vial Sliding Scale -) 1 vial SQ ACHS [facility]; Protocol Last Admin: 12/25/19 11:27 Dose: 2 unit Documented by: Levothyroxine Sodium (Synthroid -) 25 mcg PO ACBK [facility] Last Admin: 12/25/19 06:08 Dose: 25 mcg Documented by: Losartan Potassium (Cozaar -) 50 mg PO DAILY [facility] Last Admin: 12/25/19 10:09 Dose: 50 mg Documented by: Ondansetron HCl (Zofran Injection) 4 mg IVPUSH Q6H PRN PRN Reason: NAUSEA Fluticasone/Salmeterol (Advair 100mcg/50mcg -) 1 puff IH BID [facility] Last Admin: 12/25/19 10:09 Dose: 1 puff Documented by: Sertraline HCl (Zoloft -) 25 mg PO HS [facility] Last Admin: 12/24/19 21:44 Dose: 25 mg Documented by: - Objective Vital Signs: Vital Signs Temperature 98.3 F 12/25/19 06:40 Pulse Rate 80 12/25/19 06:40 Respiratory Rate 20 12/25/19 06:40 Blood Pressure 156/76 12/25/19 06:40 O2 Sat by Pulse Oximetry (%) 98 12/25/19 06:00 Constitutional: Yes: No Distress, Calm Cardiovascular: Yes: S1, S2 Respiratory: Yes: Regular, CTA Bilaterally Gastrointestinal: Yes: Normal Bowel Sounds, Soft, Tenderness (improving) Musculoskeletal: Yes: WNL Extremities: Yes: WNL Neurological: Yes: Alert, Oriented Psychiatric: Yes: Alert, Oriented Labs: CBC, BMP 12/23/19 06:03 12/25/19 06:48 INR, PTT INR 1.05 (0.83-1.09) 12/19/19 13:20 Assessment/Plan 84-year-old female with a history of diastolic CHF, DM 2, HTN, GI bleed secondary to bowel vascular ectasias, HLD, left ear status post TAVR, biopros thetic MVR, asthma presented to ED with complaints of diffuse pain. Found to have UTI and acute cholecystitis. sepsis gm negative bacteremia uti lactic acidosis dm dirrhoea plan continue abx complete 7 days and then switch to oral as planned rest as per the team
--- NOTE | 2019-12-25 14:31 | PN ---
Progress Note, Physician Chief Complaint: Events noted Not in distress History of Present Illness: Patient was seen and examined. Awake and alert. Chart was reviewed Denies chest pain, SOB or palpitations - Current Medication List Current Medications: Active Medications Acetaminophen (Tylenol -) 650 mg PO Q4H PRN PRN Reason: PAIN LEVEL 4 - 6 Last Admin: 12/24/19 21:44 Dose: 650 mg Documented by: Albuterol Sulfate (Ventolin Hfa Inhaler -) 2 puff IH Q4H PRN PRN Reason: SHORT OF BREATH/WHEEZING Last Admin: 12/23/19 12:36 Dose: 2 puff Documented by: Albuterol Sulfate (Ventolin 0.083% Nebulizer Soln -) 1 amp NEB RQID [facility] Last Admin: 12/25/19 12:01 Dose: 1 amp Documented by: Carvedilol (Coreg -) 3.125 mg PO BID [facility] Last Admin: 12/25/19 10:09 Dose: 3.125 mg Documented by: Enoxaparin Sodium (Lovenox -) 40 mg SQ DAILY [facility] Last Admin: 12/25/19 10:09 Dose: 40 mg Documented by: Famotidine (Pepcid -) 20 mg PO BID [facility] Last Admin: 12/25/19 10:09 Dose: 20 mg Documented by: Piperacillin Sod/Tazobactam (Sod 2.25 gm/ Dextrose) 50 mls @ 100 mls/hr IVPB Q8H-IV [facility]; Protocol Last Admin: 12/25/19 10:09 Dose: 100 mls/hr Documented by: Insulin Aspart (Novolog Vial Sliding Scale -) 1 vial SQ ACHS [facility]; Protocol Last Admin: 12/25/19 11:27 Dose: 2 unit Documented by: Levothyroxine Sodium (Synthroid -) 25 mcg PO ACBK [facility] Last Admin: 12/25/19 06:08 Dose: 25 mcg Documented by: Losartan Potassium (Cozaar -) 50 mg PO DAILY [facility] Last Admin: 12/25/19 10:09 Dose: 50 mg Documented by: Ondansetron HCl (Zofran Injection) 4 mg IVPUSH Q6H PRN PRN Reason: NAUSEA Fluticasone/Salmeterol (Advair 100mcg/50mcg -) 1 puff IH BID [facility] Last Admin: 12/25/19 10:09 Dose: 1 puff Documented by: Sertraline HCl (Zoloft -) 25 mg PO HS [facility] Last Admin: 12/24/19 21:44 Dose: 25 mg Documented by: - Objective Vital Signs: Vital Signs Temperature 98.3 F 12/25/19 06:40 Pulse Rate 80 12/25/19 06:40 Respiratory Rate 20 12/25/19 06:40 Blood Pressure 156/76 12/25/19 06:40 O2 Sat by Pulse Oximetry (%) 98 12/25/19 09:00 Neck: Yes: Supple Cardiovascular: Yes: Regular Rate and Rhythm, S1, S2 Respiratory: Yes: CTA Bilaterally Gastrointestinal: Yes: Normal Bowel Sounds, Soft. No: Tenderness Edema: No Labs: CBC, BMP 12/23/19 06:03 12/25/19 06:48 INR, PTT INR 1.05 (0.83-1.09) 12/19/19 13:20 Problem List - Problems (1) UTI (urinary tract infection) Code(s): N39.0 - URINARY TRACT INFECTION, SITE NOT SPECIFIED Qualifiers: Urinary tract infection type: acute cystitis Hematuria presence: without hematuria Qualified Code(s): N30.00 - Acute cystitis without hematuria (2) S/P mitral valve replacement Code(s): Z95.2 - PRESENCE OF PROSTHETIC HEART VALVE (3) T2DM (type 2 diabetes mellitus) Code(s): E11.9 - TYPE 2 DIABETES MELLITUS WITHOUT COMPLICATIONS Qualifiers: Diabetes mellitus assisted insulin use: without barrel roller operator use (4) CAD (coronary artery disease) Code(s): I25.10 - ATHSCL HEART DISEASE OF [place] CORONARY ARTERY W/O ANG PCTRS Qualifiers: Coronary Disease-Associated Artery/Lesion type: [place] artery [place] vs. transplanted heart: [place] heart Associated angina: without angina Qualified Code(s): I25.10 - Atherosclerotic heart disease of [place] coronary artery without angina pectoris (5) COPD (chronic obstructive pulmonary disease) Code(s): J44.9 - CHRONIC OBSTRUCTIVE PULMONARY DISEASE, UNSPECIFIED Qualifiers: COPD type: unspecified COPD Qualified Code(s): J44.9 - Chronic obstructive pulmonary disease, unspecified (6) HTN (hypertension) Code(s): I10 - ESSENTIAL (PRIMARY) HYPERTENSION Qualifiers: Hypertension type: essential hypertension Qualified Code(s): I10 - Essential (primary) hypertension (7) Hypothyroid Code(s): E03.9 - HYPOTHYROIDISM, UNSPECIFIED Qualifiers: Hypothyroidism type: unspecified Qualified Code(s): E03.9 - Hypothyroidism, unspecified (8) S/P TAVR (transcatheter aortic valve replacement) Code(s): Z95.2 - PRESENCE OF PROSTHETIC HEART VALVE Assessment/Plan 1. UTI 2. Aortic valve disease s/p TAVR 3. MVR (bioprosthesis) 4. HTN 5. Hypercholesterolemia 6. Type 2 DM 7. Hypothyroidism 8. History of vascular ectasia PLAN: 1. Continue antibiotics 2. Losartan 50 mg QD and Carvedilol 3.125 mg BID 3. DVT prophylaxis Abiodun Cabral MD
--- NOTE | 2019-12-25 16:05 | PN ---
Teaching Attending Note Name of Resident: Danyelle Ng ATTENDING PHYSICIAN STATEMENT I saw and evaluated the patient. I reviewed the resident's note and discussed the case with the resident. I agree with the resident's findings and plan as documented. SUBJECTIVE: Feeling well. Abdominal pain resolved. Diarrhea improving. No fever/chills/nausea/vomiting. OBJECTIVE: Afebrile, hemodynamically Stable. Last Vital Signs Temp Pulse Resp BP Pulse Ox 98.3 F 80 20 156/76 98 12/25/19 06:40 12/25/19 06:40 12/25/19 06:40 12/25/19 06:40 12/25/19 09:00 HEENT - Atraumatic, Normocephalic. Heart - S1, S2, RRR Lungs - clear to auscultation Abdomen - Soft, non-tender. Bowel Sounds normal. Extremities - no edema, no calf tenderness Laboratory Results - last 24 hr 12/24/19 12/24/19 12/24/19 15:00 17:41 21:53 Sodium 137 Potassium 4.1 Chloride 94 L Carbon Dioxide 36 H Anion Gap 7 L BUN 9.5 Creatinine 0.8 Est GFR (CKD-EPI)AfAm 77.92 Est GFR (CKD-EPI)NonAf 67.23 POC Glucometer 170 168 Random Glucose 220 H Calcium 9.5 Phosphorus Magnesium 12/25/19 12/25/19 12/25/19 06:05 06:48 11:26 Sodium 140 Potassium 3.8 Chloride 96 L Carbon Dioxide 36 H Anion Gap 8 BUN 12.7 Creatinine 0.9 Est GFR (CKD-EPI)AfAm 67.57 Est GFR (CKD-EPI)NonAf 58.30 POC Glucometer 156 213 Random Glucose 155 H Calcium 8.9 Phosphorus 3.4 Magnesium 2.1 Current Medications Generic Name Dose Route Start Last Admin Trade Name Freq PRN Reason Stop Dose Admin Acetaminophen 650 mg 12/22/19 04:59 12/24/19 21:44 Tylenol - PO 650 mg Q4H PRN Administration PAIN LEVEL 4 - 6 Albuterol Sulfate 2 puff 12/20/19 11:56 12/23/19 12:36 Ventolin Hfa Inhaler - IH 2 puff Q4H PRN Administration SHORT OF BREATH/WHEEZING Albuterol Sulfate 1 amp 12/23/19 12:15 12/25/19 12:01 Ventolin 0.083% Nebulizer Soln - NEB 1 amp RQID [facility] Administration Carvedilol 3.125 mg 12/24/19 12:00 12/25/19 10:09 Coreg - PO 3.125 mg BID [facility] Administration Enoxaparin Sodium 40 mg 12/20/19 10:00 12/25/19 10:09 Lovenox - SQ 40 mg DAILY [facility] Administration Famotidine 20 mg 12/20/19 22:00 12/25/19 10:09 Pepcid - PO 20 mg BID [facility] Administration Piperacillin Sod/Tazobactam 50 mls @ 100 mls/hr 12/20/19 15:00 12/25/19 10:09 Sod 2.25 gm/ Dextrose IVPB 100 mls/hr Q8H-IV [facility] Administration Protocol Insulin Aspart 1 vial 12/20/19 16:30 12/25/19 11:27 Novolog Vial Sliding Scale - SQ 2 unit ACHS [facility] Administration Protocol Levothyroxine Sodium 25 mcg 12/21/19 07:00 12/25/19 06:08 Synthroid - PO 25 mcg ACBK [facility] Administration Losartan Potassium 50 mg 12/24/19 10:00 12/25/19 10:09 Cozaar - PO 50 mg DAILY [facility] Administration Ondansetron HCl 4 mg 12/19/19 17:42 Zofran Injection IVPUSH Q6H PRN NAUSEA Fluticasone/Salmeterol 1 puff 12/23/19 12:15 12/25/19 10:09 Advair 100mcg/50mcg - IH 1 puff BID [facility] Administration Sertraline HCl 25 mg 12/20/19 22:00 12/24/19 21:44 Zoloft - PO 25 mg HS [facility] Administration Home Medications Medication Instructions Recorded Sitagliptin Phosphate [Januvia] 100 mg PO DAILY 12/18/14 Atorvastatin Ca [Lipitor] 10 mg PO HS #1 tablet 12/22/14 Cholecalciferol (Vitamin D3) 1,000 unit PO DAILY 03/10/16 [Vitamin D3 -] Latanoprost 0.005% Eye Drops 1 drop OU HS 07/25/16 [Xalatan 0.005% Eye Drops -] Ascorbic Acid [Vitamin C] 500 mg PO DAILY 05/10/17 Levothyroxine [Synthroid -] 0.025 mcg PO ACBK 05/10/17 Sertraline HCl [Zoloft] 25 mg PO HS 05/10/17 Calcium 250Mg/Vit-D 125 Units 1 combo PO DAILY 10/24/17 [Oscal 250 mg+D -] Ferrous Sulfate 325 mg PO DAILY 10/24/17 Metformin HCl [Glucophage] 500 mg PO BID 10/24/17 [place]-3/Dha/Epa/Fish Oil [Fish Oil 1 each PO DAILY 10/24/17 [place]-3 EC 1,200 mg] Albuterol Sulfate 0.5% [Ventolin 5 mg IH Q6H PRN 04/03/18 0.5% Nebulizing Soln. -] Aspirin [Aspirin EC] 81 mg PO DAILY 04/03/18 Fluticasone/Vilanterol [Breo 1 mcg IH DAILY 04/03/18 Ellipta 100-25 Mcg INH] Lactobacillus Acidophilus [Bacid -] 1 tab PO DAILY tab 04/07/18 Famotidine [Pepcid -] 20 mg PO BID 12/20/19 Losartan Potassium [Cozaar -] 50 mg PO DAILY 12/20/19 Acetaminophen [Tylenol .Regular 650 mg PO Q4H PRN tablet 12/25/19 Strength -] Carvedilol [Coreg -] 3.125 mg PO BID tablet 12/25/19 Cefpodoxime Proxetil [Vantin -] 200 mg PO Q12H #14 tablet 12/25/19 Docusate Sodium [Colace -] 100 mg PO Q12H PRN capsule 12/25/19 metroNIDAZOLE [Flagyl -] 500 mg PO Q8H #21 tablet 12/25/19 ASSESSMENT AND PLAN: 84 year old female with a history of Chronic Diastolic CHF, DM 2, HTN, Hx GI bl eed secondary to bowel vascular ectasias, HLD, status post TAVR, bioprosthetic MVR, Asthma, presented to ED with complaints of diffuse abdominal pain, found to have UTI wit Bacteremia and acute cholecystitis. 1. Sepsis secondary to Acute Cholecystitis/Ecoli UTI with Bacteremia HIDA scan shows patent cystic duct. Evaluated by Surgery and recommended for conservative management due to high risk of surgical intervention. Urine/Blood Cx positive for Ecoli. Repeat Blood Cx - no growth. Improving with IV Zosyn and Flagyl (for transition to oral Abx Cefpodoxime and Flagyl from 12/25) 2. Diarrhea ? Abx related Cdiff negative. 3. DM 2 - Januvia/Metformin held. Maintain on Novolog sliding scale. 3. s/p TAVR, Bioprosthetic MVR Cardiology following - 4. HTN - continue Coreg, Losartan 5. HLD - continue Statin 6. Hypothyrosidism - TSH 2.4. Continue Levothyroxine. 7. Depression/Anxiety - continue Sertraline. 8. Chronic Diastolic CHF - Lasix PRN as per Cardio. 9. Acute Hypoxic Respiratory Failure - SpO2 80s on RA, up to 97% on 2-3L. Will get CTA Chest to exclude PE. COVID PCR pending. Not in respiratry distress. Unclear whether patient is on chronic oxygen at home. She denies this today but apparently admitted to being on home O2 yesterday. Will need collateral history from neighbor or PCP. Possible mild baseline Dementia - no evidence of delirium/acute confusional state. DVT Px - Lovenox SQ
[2019-12-25] MEDS ORDERED: FUROSEMIDE 40 MG/4 ML INJECTABLE VIAL IVPUSH ONE (16:44)
[2019-12-25 20:14] LABS: BLOOD UREA NITROGEN 16.1 mg/dL (7-18); CALCIUM 9.3 mg/dL (8.5-10.1); CREATININE 1.1 mg/dL (0.55-1.3); POTASSIUM 3.6 mmol/L (3.5-5.1)
[2019-12-25] MEDS: ACETAMINOPHEN 325 MG TABLET (FP) PO PRN (21:28)
[2019-12-25] MEDS: SERTRALINE HCL 25 MG TABLET (FP) PO SCH (21:29)
[2019-12-26] MEDS ORDERED: PIPERACILLIN/TAZOBACTAM 2.25 GM VIAL IVPB ONE ×3 (01:19→17:44)
[2019-12-26] MEDS ORDERED: DEXTROSE 5%-WATER - 50 ML IVPB ONE ×3 (01:20→17:44)
[2019-12-26] MEDS: PIPERACILLIN/TAZOB 2.25 GM 2.25 GM in DEXTROSE 5%-WATER - 50 ML IVPB SCH ×3 (01:30→17:53)
[2019-12-26] MEDS: LEVOTHYROXINE NA 25 MCG TABLET (FP) PO SCH (06:29)
[2019-12-26] MEDS: INSULIN SLIDING SCALE (NOVOLOG) 1 VIAL SQ SCH ×4 (08:09→22:00)
[2019-12-26 08:21] LABS: HEMATOCRIT 33.4 % (32.4-45.2); PLATELET COUNT 328 K/MM3 (134-434); RBC 3.68 M/mm3 (3.60-5.2); RDW 14.6 % (11.6-15.6); WHITE BLOOD COUNT 11.4 K/mm3 (4.0-10.0)
[2019-12-26 08:23] LABS: MAGNESIUM 2.1 mg/dL (1.8-2.4); PHOSPHOROUS 4.2 mg/dL (2.5-4.9)
[2019-12-26] MEDS: ALBUTEROL SO4 0.083% IH SOL 2.5 MG/3 ML VIAL.NEB. NEB SCH ×3 (08:45→16:25)
[2019-12-26] MEDS: LOSARTAN POTASSIUM 50 MG TABLET (FP) PO SCH (09:14)
[2019-12-26] MEDS: CARVEDILOL 3.125 MG TABLET (FP) PO SCH ×2 (09:14→22:01)
[2019-12-26] MEDS: FLUTICASONE/SALMETEROL 100 MCG/50 MCG DISKUS IH SCH ×2 (09:14→22:01)
[2019-12-26] MEDS: ENOXAPARIN NA (PORCINE) 40 MG/0.4 ML DISP.SYRIN SQ SCH (09:14)
[2019-12-26] MEDS: FAMOTIDINE 20 MG TABLET PO SCH ×2 (09:14→22:01)
[2019-12-26] MEDS ORDERED: FUROSEMIDE 40 MG/4 ML INJECTABLE VIAL IVPUSH ONE (09:30)
--- NOTE | 2019-12-26 11:06 | CON.PULM ---
Consult Consult Specialty:: PULMONARY Referred by:: Dr Pelaez Reason for Consultation:: hypoxia - History of Present Illness Chief Complaint: nausea/vomiting History of Present Illness: 84yo female with h/o HTN, DM, hyperlipidemia, hypothyroidism, LV diastolic dysfunction, aortic stenosis s/p TAVR, h/o bio MVR, asthma who was admitted with nausea and vomiting found to have a UTI. Grew E coli, currently on antibiotics but was noted to be hypoxic yesterday. She states her breathing has since improved, denies cough or wheezing. Reported to have some anterior chest discomfort yesterday. No fevers, chills or sweats. No leg swelling. CTA chest done yesterday which did not show evidence of PE but with small-moderate pleural effusions and pulmonary vascular congestion. 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) Pulmonary: Yes: COPD, Sleep Apnea Gastrointestinal: Yes: Diverticulosis, Hiatal Hernia, Other (multiple colon adenomas removed 2014, 2015, capsule endoscopy Dr Olvera 2015 unrevealing) Hepatobiliary: Yes: Cholelithiasis, Other (fatty liver) Renal/: Yes: Renal Calculi Musculoskeletal: Yes: Osteoarthritis Endocrine: Yes: Diabetes Mellitus (with retinopathy), Hypothyroidism Additional Medical History: Legally blind with diabetic retinopathy, macular degeneration and glaucoma - Past Surgical History Past Surgical History: Yes: Appendectomy (ruptured appendix), Cataract Removal, Colonoscopy, Hernia Repair, Tonsillectomy, Upper Endoscopy, Valve Replacement (s/p TAVR 2016, MVR 10/2017) - Alcohol/Substance Use Hx Alcohol Use: No History of Substance Use: reports: None - Smoking History Smoking history: Unknown if ever smoked Have you smoked in the past 12 months: No Aproximately how many cigarettes per day: 0 If you are a former smoker, when did you quit?: 1972 - Social History ADL: Independent History of Recent Travel: No Home Medications - Allergies Allergies/Adverse Reactions: Allergies Allergy/AdvReac Type Severity Reaction Status Date / Time quinine [Quinine] Allergy Mild Rash Verified 04/02/18 15:11 Sulfa (Sulfonamide Allergy Mild Rash Verified 04/02/18 15:11 Antibiotics) [Sulfa(Sulfonamide Antibiotics)] - Home Medications Home Medications: Ambulatory Orders Sitagliptin Phosphate [Januvia] 100 mg PO DAILY 12/18/14 Atorvastatin Ca [Lipitor] 10 mg PO HS #1 tablet 12/22/14 Cholecalciferol (Vitamin D3) [Vitamin D3 -] 1,000 unit PO DAILY 03/10/16 Latanoprost 0.005% Eye Drops [Xalatan 0.005% Eye Drops -] 1 drop OU HS 07/25/16 Ascorbic Acid [Vitamin C] 500 mg PO DAILY 05/10/17 Levothyroxine [Synthroid -] 0.025 mcg PO ACBK 05/10/17 Sertraline HCl [Zoloft] 25 mg PO HS 05/10/17 Calcium 250Mg/Vit-D 125 Units [Oscal 250 mg+D -] 1 combo PO DAILY 10/24/17 Ferrous Sulfate 325 mg PO DAILY 10/24/17 Metformin HCl [Glucophage] 500 mg PO BID 10/24/17 [place]/Dha/Epa/Fish Oil [Fish Oil [place] EC 1,200 mg] 1 each PO DAILY 10/24/17 Albuterol Sulfate 0.5% [Ventolin 0.5% Nebulizing Soln. -] 5 mg IH Q6H PRN 04/03/18 Aspirin [Aspirin EC] 81 mg PO DAILY 04/03/18 Fluticasone/Vilanterol [Breo Ellipta 100-25 Mcg INH] 1 mcg IH DAILY 04/03/18 Lactobacillus Acidophilus [Bacid -] 1 tab PO DAILY tab 04/07/18 Famotidine [Pepcid -] 20 mg PO BID 12/20/19 Losartan Potassium [Cozaar -] 50 mg PO DAILY 12/20/19 Acetaminophen [Tylenol .Regular Strength -] 650 mg PO Q4H PRN tablet 12/25/19 Carvedilol [Coreg -] 3.125 mg PO BID tablet 12/25/19 Cefpodoxime Proxetil [Vantin -] 200 mg PO Q12H #14 tablet 12/25/19 Docusate Sodium [Colace -] 100 mg PO Q12H PRN capsule 12/25/19 metroNIDAZOLE [Flagyl -] 500 mg PO Q8H #21 tablet 12/25/19 Review of Systems - Review of Systems Constitutional: denies: Chills, Fever Eyes: denies: Recent Change in Vision HENT: denies: Nasal Congestion, Throat Pain Neck: denies: Stiffness, Tenderness Cardiovascular: reports: Shortness of Breath. denies: Chest Pain Respiratory: denies: Cough, Hemoptysis, Wheezing Gastrointestinal: denies: Abdominal Pain, Nausea, Vomiting Genitourinary: denies: Dysuria Neurological: denies: Dizziness, Headache Endocrine: denies: Unexplained Weight Loss Physical Exam Vital Sings: Vital Signs Temperature 98 F 12/26/19 07:00 Pulse Rate 86 12/26/19 07:00 Respiratory Rate 18 12/26/19 09:00 Blood Pressure 130/70 12/26/19 07:00 O2 Sat by Pulse Oximetry (%) 99 12/26/19 09:00 Constitutional: Yes: Calm Eyes: Yes: Conjunctiva Clear, EOM Intact HENT: Yes: Atraumatic, Normocephalic Neck: Yes: Supple, Trachea Midline Cardiovascular: Yes: Regular Rate and Rhythm Respiratory: Yes: Diminished (decreased breath sounds at the bases) ...Clubbing: No Gastrointestinal: Yes: Normal Bowel Sounds, Soft. No: Tenderness Edema: No Neurological: Yes: Alert, Oriented Labs: CBC, BMP 12/26/19 06:45 12/25/19 19:00 Imaging - Results Chest X-ray: Report Reviewed, Image Reviewed Cat Scan: Report Reviewed, Image Reviewed (no PE, pulmonary vascular congestion, bilateral effusions) Problem List - Problems (1) Acute on chronic diastolic (congestive) heart failure Code(s): I50.33 - ACUTE ON CHRONIC DIASTOLIC (CONGESTIVE) HEART FAILURE Assessment/Plan Acute on Chronic Diastolic Heart Failure UTI Aortic Stenosis s/p TAVR h/o bio MVR HTN DM Hyperlipidemia - pt appears clinically improved with d/c of IVF and after lasix - currently saturating 97% on 2L/min nasal cannula - continue lasix as needed - O2 to keep SpO2 >90% - inhaled bronchodilators - DVT prophylaxis Thank you for this consult Festus Orlando MD
--- NOTE | 2019-12-26 11:11 | PN ---
Progress Note, Physician History of Present Illness: OOB in chair, dyspnea improved after d/c IVF and diuresis, chest CT confirmed CHF with effusions. - Current Medication List Current Medications: Active Medications Acetaminophen (Tylenol -) 650 mg PO Q4H PRN PRN Reason: PAIN LEVEL 4 - 6 Last Admin: 12/25/19 21:28 Dose: 650 mg Documented by: Albuterol Sulfate (Ventolin Hfa Inhaler -) 2 puff IH Q4H PRN PRN Reason: SHORT OF BREATH/WHEEZING Last Admin: 12/23/19 12:36 Dose: 2 puff Documented by: Albuterol Sulfate (Ventolin 0.083% Nebulizer Soln -) 1 amp NEB RQID [facility] Last Admin: 12/26/19 08:45 Dose: 1 amp Documented by: Carvedilol (Coreg -) 3.125 mg PO BID [facility] Last Admin: 12/26/19 09:14 Dose: 3.125 mg Documented by: Enoxaparin Sodium (Lovenox -) 40 mg SQ DAILY [facility] Last Admin: 12/26/19 09:14 Dose: 40 mg Documented by: Famotidine (Pepcid -) 20 mg PO BID [facility] Last Admin: 12/26/19 09:14 Dose: 20 mg Documented by: Piperacillin Sod/Tazobactam (Sod 2.25 gm/ Dextrose) 50 mls @ 100 mls/hr IVPB Q8H-IV [facility]; Protocol Last Admin: 12/26/19 09:14 Dose: 100 mls/hr Documented by: Insulin Aspart (Novolog Vial Sliding Scale -) 1 vial SQ ACHS [facility]; Protocol Last Admin: 12/26/19 08:09 Dose: 1 unit Documented by: Levothyroxine Sodium (Synthroid -) 25 mcg PO ACBK [facility] Last Admin: 12/26/19 06:29 Dose: 25 mcg Documented by: Losartan Potassium (Cozaar -) 50 mg PO DAILY [facility] Last Admin: 12/26/19 09:14 Dose: 50 mg Documented by: Ondansetron HCl (Zofran Injection) 4 mg IVPUSH Q6H PRN PRN Reason: NAUSEA Fluticasone/Salmeterol (Advair 100mcg/50mcg -) 1 puff IH BID [facility] Last Admin: 12/26/19 09:14 Dose: 1 puff Documented by: Sertraline HCl (Zoloft -) 25 mg PO HS [facility] Last Admin: 12/25/19 21:29 Dose: 25 mg Documented by: - Objective Vital Signs: Vital Signs Temperature 98 F 12/26/19 07:00 Pulse Rate 86 12/26/19 07:00 Respiratory Rate 18 12/26/19 09:00 Blood Pressure 130/70 12/26/19 07:00 O2 Sat by Pulse Oximetry (%) 99 12/26/19 09:00 Constitutional: Yes: No Distress, Calm Neck: Yes: Supple Cardiovascular: Yes: Regular Rate and Rhythm Respiratory: Yes: Regular, Diminished, On Nasal O2 Gastrointestinal: Yes: Normal Bowel Sounds, Soft Edema: No Labs: CBC, BMP 12/26/19 06:45 12/25/19 19:00 INR, PTT INR 1.05 (0.83-1.09) 12/19/19 13:20 Problem List - Problems (1) Sepsis Code(s): A41.9 - SEPSIS, UNSPECIFIED ORGANISM Qualifiers: Sepsis type: sepsis due to unspecified organism Sepsis acute organ dysfunction status: without acute organ dysfunction Qualified Code(s): A41.9 - Sepsis, unspecified organism (2) UTI (urinary tract infection) Code(s): N39.0 - URINARY TRACT INFECTION, SITE NOT SPECIFIED Qualifiers: Urinary tract infection type: acute cystitis Hematuria presence: without hematuria Qualified Code(s): N30.00 - Acute cystitis without hematuria (3) S/P mitral valve replacement Code(s): Z95.2 - PRESENCE OF PROSTHETIC HEART VALVE (4) Aortic stenosis Code(s): I35.0 - NONRHEUMATIC AORTIC (VALVE) STENOSIS Qualifiers: Cardiac valve disease etiology: nonrheumatic Qualified Code(s): I35.0 - Nonrheumatic aortic (valve) stenosis (5) CAD (coronary artery disease) Code(s): I25.10 - ATHSCL HEART DISEASE OF [place] CORONARY ARTERY W/O ANG PCTRS Qualifiers: Coronary Disease-Associated Artery/Lesion type: [place] artery [place] vs. transplanted heart: [place] heart Associated angina: without angina Qualified Code(s): I25.10 - Atherosclerotic heart disease of [place] coronary artery without angina pectoris (6) COPD (chronic obstructive pulmonary disease) Code(s): J44.9 - CHRONIC OBSTRUCTIVE PULMONARY DISEASE, UNSPECIFIED Qualifiers: COPD type: unspecified COPD Qualified Code(s): J44.9 - Chronic obstructive pulmonary disease, unspecified (7) Diastolic CHF due to valvular disease Code(s): I38 - ENDOCARDITIS, VALVE UNSPECIFIED; I50.30 - UNSPECIFIED DIASTOLIC (CONGESTIVE) HEART FAILURE (8) HTN (hypertension) Code(s): I10 - ESSENTIAL (PRIMARY) HYPERTENSION Qualifiers: Hypertension type: essential hypertension Qualified Code(s): I10 - Essential (primary) hypertension (9) Hyperlipidemia Code(s): E78.5 - HYPERLIPIDEMIA, UNSPECIFIED Qualifiers: Hyperlipidemia type: pure hypercholesterolemia Qualified Code(s): E78.00 - Pure hypercholesterolemia, unspecified; E78.0 - Pure hypercholesterolemia (10) Hypothyroid Code(s): E03.9 - HYPOTHYROIDISM, UNSPECIFIED Qualifiers: Hypothyroidism type: unspecified Qualified Code(s): E03.9 - Hypothyroidism, unspecified (11) Pulmonary hypertension Code(s): I27.2 - OTHER SECONDARY PULMONARY HYPERTENSION * DO NOT USE * (12) S/P TAVR (transcatheter aortic valve replacement) Code(s): Z95.2 - PRESENCE OF PROSTHETIC HEART VALVE (13) GI bleed Code(s): K92.2 - GASTROINTESTINAL HEMORRHAGE, UNSPECIFIED Qualifiers: GI bleed type/associated pathology: angiodysplasia of stomach and duodenum Qualified Code(s): K31.811 - Angiodysplasia of stomach and duodenum with bleeding (14) Diarrhea Code(s): R19.7 - DIARRHEA, UNSPECIFIED Qualifiers: Diarrhea type: unspecified type Qualified Code(s): R19.7 - Diarrhea, unspecified (15) Shortness of breath Code(s): R06.02 - SHORTNESS OF BREATH (16) UTI (urinary tract infection) Code(s): N39.0 - URINARY TRACT INFECTION, SITE NOT SPECIFIED Qualifiers: Urinary tract infection type: site unspecified Hematuria presence: without hematuria Qualified Code(s): N39.0 - Urinary tract infection, site not specified Assessment/Plan HIDA negative 12/25/2019 No PE, small-mod right and small left effusion, mild CHF, AV and MV replacement, ALFREDO closure 1. UTI, E Coli bacteremia 2. Acute on chronic diastolic heart failure improved 2. Aortic valve disease s/p TAVR 3. MVR (bioprosthesis) 4. HTN 5. Hypercholesterolemia 6. Type 2 DM 7. Hypothyroidism 8. History of vascular ectasia Plan: 1. Empiric antibiotic course per ID and primary team, c. diff negative, surveillance cultures NGTD thus far 2. vigilant for IE 3. DVT prophylaxis, BD and O2 to keep SpO2 >90% as needed 4. Continue losartan 50 qd and carvedilol 3.125 bid with uptitration as hemodynamics tolerate, oral diuresis as needed for next several days.
[2019-12-26 11:58] LABS: BLOOD UREA NITROGEN 15.2 mg/dL (7-18); CALCIUM 9.2 mg/dL (8.5-10.1); POTASSIUM 4.1 mmol/L (3.5-5.1)
--- NOTE | 2019-12-26 11:59 | PN ---
Progress Note, Physician History of Present Illness: no specific complaints - Current Medication List Current Medications: Active Medications Acetaminophen (Tylenol -) 650 mg PO Q4H PRN PRN Reason: PAIN LEVEL 4 - 6 Last Admin: 12/25/19 21:28 Dose: 650 mg Documented by: Albuterol Sulfate (Ventolin Hfa Inhaler -) 2 puff IH Q4H PRN PRN Reason: SHORT OF BREATH/WHEEZING Last Admin: 12/23/19 12:36 Dose: 2 puff Documented by: Albuterol Sulfate (Ventolin 0.083% Nebulizer Soln -) 1 amp NEB RQID [facility] Last Admin: 12/26/19 08:45 Dose: 1 amp Documented by: Carvedilol (Coreg -) 3.125 mg PO BID [facility] Last Admin: 12/26/19 09:14 Dose: 3.125 mg Documented by: Enoxaparin Sodium (Lovenox -) 40 mg SQ DAILY [facility] Last Admin: 12/26/19 09:14 Dose: 40 mg Documented by: Famotidine (Pepcid -) 20 mg PO BID [facility] Last Admin: 12/26/19 09:14 Dose: 20 mg Documented by: Piperacillin Sod/Tazobactam (Sod 2.25 gm/ Dextrose) 50 mls @ 100 mls/hr IVPB Q8H-IV [facility]; Protocol Last Admin: 12/26/19 09:14 Dose: 100 mls/hr Documented by: Insulin Aspart (Novolog Vial Sliding Scale -) 1 vial SQ ACHS [facility]; Protocol Last Admin: 12/26/19 11:20 Dose: 2 unit Documented by: Levothyroxine Sodium (Synthroid -) 25 mcg PO ACBK [facility] Last Admin: 12/26/19 06:29 Dose: 25 mcg Documented by: Losartan Potassium (Cozaar -) 50 mg PO DAILY [facility] Last Admin: 12/26/19 09:14 Dose: 50 mg Documented by: Ondansetron HCl (Zofran Injection) 4 mg IVPUSH Q6H PRN PRN Reason: NAUSEA Fluticasone/Salmeterol (Advair 100mcg/50mcg -) 1 puff IH BID [facility] Last Admin: 12/26/19 09:14 Dose: 1 puff Documented by: Sertraline HCl (Zoloft -) 25 mg PO HS [facility] Last Admin: 12/25/19 21:29 Dose: 25 mg Documented by: - Objective Vital Signs: Vital Signs Temperature 98 F 12/26/19 07:00 Pulse Rate 86 12/26/19 07:00 Respiratory Rate 18 12/26/19 09:00 Blood Pressure 130/70 12/26/19 07:00 O2 Sat by Pulse Oximetry (%) 99 12/26/19 09:00 Constitutional: Yes: No Distress, Calm Cardiovascular: Yes: S1, S2 Respiratory: Yes: Regular, CTA Bilaterally Gastrointestinal: Yes: Normal Bowel Sounds, Soft Musculoskeletal: Yes: WNL Extremities: Yes: WNL Neurological: Yes: Alert, Oriented Psychiatric: Yes: Alert, Oriented Labs: CBC, BMP 12/26/19 06:45 12/26/19 06:45 INR, PTT INR 1.05 (0.83-1.09) 12/19/19 13:20 Assessment/Plan 84-year-old female with a history of diastolic CHF, DM 2, HTN, GI bleed secondary to bowel vascular ectasias, HLD, left ear status post TAVR, bioprosthetic MVR, asthma presented to ED with complaints of diffuse pain. Found to have UTI and acute cholecystitis. sepsis gm negative bacteremia uti lactic acidosis dm dirrhoea plan continue abx complete 7 days and then switch to oral as planned rest as per the team oral augmentin
[2019-12-26 12:01] LABS: CREATININE 0.9 mg/dL (0.55-1.3)
--- NOTE | 2019-12-26 15:54 | ECHO ---
Version: 1 Name: KAI OROZCO Exam: Adult Echocardiogram Study Date: 12/26/2019, 3:00 PM Age: 84 Years MMode/2D Measurements & Calculations LAV (MOD-bp): 80.0 ml LVOT diam: 1.39 cm Doppler Measurements & Calculations MV E max nikolai: 131.4 cm/sec MV V2 max: 170.4 cm/sec MV A max nikolai: 171.5 cm/sec MV max P.6 mmHg MV mean P.3 mmHg Med E/e': 28.5 MV E/A: 0.77 Med Peak E' Nikolai: 4.6 cm/sec Lat E/e': 23.0 Lat Peak E' Nikolai: 5.7 cm/sec Ao max P.1 mmHg Ao V2 max: 178.5 cm/sec TR max nikolai: 303.1 cm/sec TR max P.8 mmHg Procedure A complete two-dimensional transthoracic echocardiogram was performed (2D, M-mode, Doppler and color flow Doppler). The study was technically difficult with many images being suboptimal in quality. Left Ventricle The left ventricle is not well visualized. The left ventricular ejection fraction is grossly normal. Ejection Fraction = 55%. E/A reversal consistent with but not diagnostic of poor LV compliance. Regional wall motion abnormalities cannot be excluded due to limited visualization. Right Ventricle The right ventricle is normal in size and function. Atria The left atrium is moderately dilated. Right atrial size is normal. Mitral Valve There is a bioprosthetic mitral valve. There is trace mitral regurgitation. Tricuspid Valve The tricuspid valve is normal in structure and function. There is Trace to mild tricuspid regurgitat ion. Right ventricular systolic pressure is elevated at 42 mmhg. Assuming the RA pressure is 5 mmHg. Aortic Valve There is moderate aortic valve thickening. Pulmonic Valve The pulmonic valve is not well visualized. Great Vessels The aortic root is not well visualized. Pericardium/Pleura There is no pericardial effusion. There is no pleural effusion. Summary Statements The left ventricular ejection fraction is grossly normal. Regional wall motion abnormalities cannot be excluded due to limited visualization. Ejection Fraction = 55%. The left atrium is moderately dilated. There is a bioprosthetic mitral valve. There is trace mitral regurgitation. There is Trace to mild tricuspid regurgitation. Right ventricular systolic pressure is elevated at 42 mmhg. There is moderate aortic valve thickening. MD Thor Siddiqui 12/26/2019, 3:53 PM Ordering Physician: Danyelle Ng Performed By: Mindy Monson
--- NOTE | 2019-12-26 17:00 | PN ---
Teaching Attending Note Name of Resident: Bryan Diggs ATTENDING PHYSICIAN STATEMENT I saw and evaluated the patient. I reviewed the resident's note and discussed the case with the resident. I agree with the resident's findings and plan as documented. SUBJECTIVE: Feeling well. Abdominal pain resolved. Diarrhea ongoing. No fever/chills/nausea/vomiting. OBJECTIVE: Afebrile, hemodynamically Stable. Last Vital Signs Temp Pulse Resp BP Pulse Ox 97.9 F 75 20 112/61 98% on 3L 12/26/19 15:00 12/26/19 15:00 12/26/19 15:12/26/19 15:12/26/19 13:45 Heart - S1, S2, SM Lungs - decreased air entry at bases. Abdomen - Soft, non-tender. Bowel Sounds normal. Extremities - no edema, no calf tenderness Laboratory Results - last 24 hr 12/25/19 12/25/19 12/25/19 17:21 19:00 21:37 WBC RBC Hgb Hct MCV MCH MCHC RDW Plt Count MPV Sodium 137 Potassium 3.6 Chloride 94 L Carbon Dioxide 38 H Anion Gap 5 L BUN 16.1 Creatinine 1.1 Est GFR (CKD-EPI)AfAm 53.02 Est GFR (CKD-EPI)NonAf 45.74 POC Glucometer 156 215 Random Glucose 219 H Calcium 9.3 Phosphorus Magnesium 12/26/19 12/26/19 12/26/19 06:27 06:45 06:45 WBC 11.4 H RBC 3.68 Hgb 11.0 Hct 33.4 MCV 91.0 MCH 30.0 MCHC 33.0 RDW 14.6 Plt Count 328 D MPV 8.0 Sodium 139 Potassium 4.1 Chloride 96 L Carbon Dioxide 34 H Anion Gap 10 BUN 15.2 Creatinine 0.9 Est GFR (CKD-EPI)AfAm 67.57 Est GFR (CKD-EPI)NonAf 58.30 POC Glucometer 154 Random Glucose 153 H Calcium 9.2 Phosphorus 4.2 Magnesium 2.1 12/26/19 12/26/19 11:06 16:19 WBC RBC Hgb Hct MCV MCH MCHC RDW Plt Count MPV Sodium Potassium Chloride Carbon Dioxide Anion Gap BUN Creatinine Est GFR (CKD-EPI)AfAm Est GFR (CKD-EPI)NonAf POC Glucometer 215 159 Random Glucose Calcium Phosphorus Magnesium Current Medications Generic Name Dose Route Start Last Admin Trade Name Freq PRN Reason Stop Dose Admin Acetaminophen 650 mg 12/22/19 04:59 12/25/19 21:28 Tylenol - PO 650 mg Q4H PRN Administration PAIN LEVEL 4 - 6 Albuterol Sulfate 2 puff 12/20/19 11:56 12/23/19 12:36 Ventolin Hfa Inhaler - IH 2 puff Q4H PRN Administration SHORT OF BREATH/WHEEZING Albuterol Sulfate 1 amp 12/23/19 12:15 12/26/19 16:25 Ventolin 0.083% Nebulizer Soln - NEB 1 amp RQID [facility] Administration Carvedilol 3.125 mg 12/24/19 12:00 12/26/19 09:14 Coreg - PO 3.125 mg BID [facility] Administration Enoxaparin Sodium 40 mg 12/20/19 10:00 12/26/19 09:14 Lovenox - SQ 40 mg DAILY [facility] Administration Famotidine 20 mg 12/20/19 22:00 12/26/19 09:14 Pepcid - PO 20 mg BID [facility] Administration Piperacillin Sod/Tazobactam 50 mls @ 100 mls/hr 12/20/19 15:00 12/26/19 09:14 Sod 2.25 gm/ Dextrose IVPB 100 mls/hr Q8H-IV [facility] Administration Protocol Insulin Aspart 1 vial 12/20/19 16:30 12/26/19 16:22 Novolog Vial Sliding Scale - SQ 1 unit ACHS [facility] Administration Protocol Levothyroxine Sodium 25 mcg 12/21/19 07:00 12/26/19 06:29 Synthroid - PO 25 mcg ACBK [facility] Administration Losartan Potassium 50 mg 12/24/19 10:00 12/26/19 09:14 Cozaar - PO 50 mg DAILY [facility] Administration Ondansetron HCl 4 mg 12/19/19 17:42 Zofran Injection IVPUSH Q6H PRN NAUSEA Fluticasone/Salmeterol 1 puff 12/23/19 12:15 12/26/19 09:14 Advair 100mcg/50mcg - IH 1 puff BID [facility] Administration Sertraline HCl 25 mg 12/20/19 22:00 12/25/19 21:29 Zoloft - PO 25 mg HS [facility] Administration Home Medications Medication Instructions Recorded Sitagliptin Phosphate [Januvia] 100 mg PO DAILY 12/18/14 Atorvastatin Ca [Lipitor] 10 mg PO HS #1 tablet 12/22/14 Cholecalciferol (Vitamin D3) 1,000 unit PO DAILY 03/10/16 [Vitamin D3 -] Latanoprost 0.005% Eye Drops 1 drop OU HS 07/25/16 [Xalatan 0.005% Eye Drops -] Ascorbic Acid [Vitamin C] 500 mg PO DAILY 05/10/17 Levothyroxine [Synthroid -] 0.025 mcg PO ACBK 05/10/17 Sertraline HCl [Zoloft] 25 mg PO HS 05/10/17 Calcium 250Mg/Vit-D 125 Units 1 combo PO DAILY 10/24/17 [Oscal 250 mg+D -] Ferrous Sulfate 325 mg PO DAILY 10/24/17 Metformin HCl [Glucophage] 500 mg PO BID 10/24/17 [place]-3/Dha/Epa/Fish Oil [Fish Oil 1 each PO DAILY 10/24/17 [place]-3 EC 1,200 mg] Albuterol Sulfate 0.5% [Ventolin 5 mg IH Q6H PRN 04/03/18 0.5% Nebulizing Soln. -] Aspirin [Aspirin EC] 81 mg PO DAILY 04/03/18 Fluticasone/Vilanterol [Breo 1 mcg IH DAILY 04/03/18 Ellipta 100-25 Mcg INH] Lactobacillus Acidophilus [Bacid -] 1 tab PO DAILY tab 04/07/18 Famotidine [Pepcid -] 20 mg PO BID 12/20/19 Losartan Potassium [Cozaar -] 50 mg PO DAILY 12/20/19 Acetaminophen [Tylenol .Regular 650 mg PO Q4H PRN tablet 12/25/19 Strength -] Carvedilol [Coreg -] 3.125 mg PO BID tablet 12/25/19 Cefpodoxime Proxetil [Vantin -] 200 mg PO Q12H #14 tablet 12/25/19 Docusate Sodium [Colace -] 100 mg PO Q12H PRN capsule 12/25/19 metroNIDAZOLE [Flagyl -] 500 mg PO Q8H #21 tablet 12/25/19 ASSESSMENT AND PLAN: 84 year old female with a history of Chronic Diastolic CHF, DM 2, HTN, Hx GI bleed secondary to bowel vascular ectasias, HLD, status post TAVR, bioprosthetic MVR, Asthma, presented to ED with complaints of diffuse abdominal pain, found to have UTI with Bacteremia and acute cholecystitis. 1. Sepsis secondary to Acute Cholecystitis/Ecoli UTI with Bacteremia - sepsis resolved. HIDA scan shows patent cystic duct. Evaluated by Surgery and recommended for conservative management due to high risk of surgical intervention. Urine/Blood Cx positive for Ecoli. Repeat Blood Cx - no growth. Improving with IV Zosyn (for transition to oral Augmentin on discharge as per ID) 2. Acute Hypoxic Respiratory Failure requiring supplemental O2 - likely sec to Acute on Chronic Diastolic CHF CTA Chest - no PE. Small to moderate bilateral pleural effusions and vascular congestion. s/p closure of left atrial appendage, s/p AV and MV replacements. Not in respiratry distress. Will continue Lasix PRN and Supplemental O2. Attempt to wean O2 as patient undergoes diuresis. 3. Diarrhea ? Abx related Cdiff negative. Further Flagyl held. 4. DM 2 - Januvia/Metformin held. Maintain on Novolog sliding scale. 5. s/p TAVR, Bioprosthetic MVR Cardiology following - Continue losartan 50 qd and carvedilol 3.125 bid along w ith Lasix PRN 6. HTN - continue Coreg, Losartan 7. HLD - continue Statin 8. Hypothyrosidism - TSH 2.4. Continue Levothyroxine. 9. Depression/Anxiety - continue Sertraline. DVT Px - Lovenox SQ
--- NOTE | 2019-12-26 18:01 | PN ---
Physical Exam: SUBJECTIVE: 84 year old female patient with past medical history that includes Diastolic Heart Failure s/p TAVR, DM, HTN, HLD, Mitral Valve replacement, hypothyroidism, asthma, spondylolithiasisi with L5 nerve compression, and history of GI bleed, who presented to the ED with fever, nausea, and vomiting and was found to have sepsis, cholecystitis, and a UTI on vitals, imaging, and lab work. Patient seen and examined at bedside. Patient reported watery diarrhea all day and low back pain when standing or walking. Patient denied fever, chills, nausea, or vomiting. OBJECTIVE: Vital Signs Period Temp Pulse Resp BP Sys/Jose Pulse Ox Last 24 Hr 97.9 F-99 F 71-86 18-20 112-130/60-70 96-99 GENERAL: The patient is awake, alert, and fully oriented, in no acute distress. HEAD: Normal with no signs of trauma. EYES: Extraocular movements intact. No ptosis. ENT: Ears normal, nares patent, moist mucous membranes. NECK: Trachea midline, full range of motion, supple. LUNGS: Decreased breath sounds bilaterally. HEART: Regular rate and rhythm, S1, S2 without murmur, rub or gallop. ABDOMEN: Soft, nontender, normoactive bowel sounds, no guarding, no rebound, no masses. EXTREMITIES: 2+ pulses, warm, well-perfused, no edema. NEUROLOGICAL: Normal speech, gait not observed. PSYCH: Normal mood, normal affect. SKIN: Warm, dry, normal turgor, no rashes or lesions noted Laboratory Results - last 24 hr 12/25/19 12/25/19 12/26/19 19:00 21:37 06:27 WBC RBC Hgb Hct MCV MCH MCHC RDW Plt Count MPV Sodium 137 Potassium 3.6 Chloride 94 L Carbon Dioxide 38 H Anion Gap 5 L BUN 16.1 Creatinine 1.1 Est GFR (CKD-EPI)AfAm 53.02 Est GFR (CKD-EPI)NonAf 45.74 POC Glucometer 215 154 Random Glucose 219 H Calcium 9.3 Phosphorus Magnesium 12/26/19 12/26/19 12/26/19 06:45 06:45 11:06 WBC 11.4 H RBC 3.68 Hgb 11.0 Hct 33.4 MCV 91.0 MCH 30.0 MCHC 33.0 RDW 14.6 Plt Count 328 D MPV 8.0 Sodium 139 Potassium 4.1 Chloride 96 L Carbon Dioxide 34 H Anion Gap 10 BUN 15.2 Creatinine 0.9 Est GFR (CKD-EPI)AfAm 67.57 Est GFR (CKD-EPI)NonAf 58.30 POC Glucometer 215 Random Glucose 153 H Calcium 9.2 Phosphorus 4.2 Magnesium 2.1 12/26/19 16:19 WBC RBC Hgb Hct MCV MCH MCHC RDW Plt Count MPV Sodium Potassium Chloride Carbon Dioxide Anion Gap BUN Creatinine Est GFR (CKD-EPI)AfAm Est GFR (CKD-EPI)NonAf POC Glucometer 159 Random Glucose Calcium Phosphorus Magnesium Active Medications Generic Name Dose Route Start Last Admin Trade Name Freq PRN Reason Stop Dose Admin Acetaminophen 650 mg 12/22/19 04:59 12/25/19 21:28 Tylenol - PO 650 mg Q4H PRN Administration PAIN LEVEL 4 - 6 Albuterol Sulfate 2 puff 12/20/19 11:56 12/23/19 12:36 Ventolin Hfa Inhaler - IH 2 puff Q4H PRN Administration SHORT OF BREATH/WHEEZING Albuterol Sulfate 1 amp 12/23/19 12:15 12/26/19 16:25 Ventolin 0.083% Nebulizer Soln - NEB 1 amp RQID [facility] Administration Carvedilol 3.125 mg 12/24/19 12:00 12/26/19 09:14 Coreg - PO 3.125 mg BID [facility] Administration Enoxaparin Sodium 40 mg 12/20/19 10:00 12/26/19 09:14 Lovenox - SQ 40 mg DAILY [facility] Administration Famotidine 20 mg 12/20/19 22:00 12/26/19 09:14 Pepcid - PO 20 mg BID [facility] Administration Piperacillin Sod/Tazobactam 50 mls @ 100 mls/hr 12/20/19 15:00 12/26/19 17:53 Sod 2.25 gm/ Dextrose IVPB 100 mls/hr Q8H-IV [facility] Administration Protocol Insulin Aspart 1 vial 12/20/19 16:30 12/26/19 16:22 Novolog Vial Sliding Scale - SQ 1 unit ACHS [facility] Administration Protocol Levothyroxine Sodium 25 mcg 12/21/19 07:00 12/26/19 06:29 Synthroid - PO 25 mcg ACBK [facility] Administration Losartan Potassium 50 mg 12/24/19 10:00 12/26/19 09:14 Cozaar - PO 50 mg DAILY [facility] Administration Ondansetron HCl 4 mg 12/19/19 17:42 Zofran Injection IVPUSH Q6H PRN NAUSEA Fluticasone/Salmeterol 1 puff 12/23/19 12:15 12/26/19 09:14 Advair 100mcg/50mcg - IH 1 puff BID [facility] Administration Sertraline HCl 25 mg 12/20/19 22:00 12/25/19 21:29 Zoloft - PO 25 mg HS [facility] Administration ASSESSMENT/PLAN: 84 year old female patient with past medical history that includes Diastolic Heart Failure s/p TAVR, DM, HTN, HLD, Mitral Valve replacement, hypothyroidism, asthma, spondylolithiasisi with L5 nerve compression, and history of GI bleed, who presented to the ED with fever, nausea, and vomiting and was found to have sepsis, cholecystitis, and a UTI on vitals, imaging, and lab work. 1. Sepsis secondary to acute cholecystitis or UTI - sepsis resolved - urine/blood cultures from 12/18 positive for E Coli - repeat blood culture shows no growth - evaluated by surgery who recommended conservative management due to high risk of surgical intervention - improving with IV Zosyn with plan to transition to oral augmentin on discharge per ID 2. Acute hypoxic respiratory failure requiring supplemental oxygen - possibly from acute on chronic diastolic CHF - CTA chest showed no PE with small to moderate bilateral pleural effusions and vascular congestion. s/p closure of left atrial appendage and s/p Aortic valve and Mitral valve replacements. - will continue lasix PRN and supplemental oxygen - will attempt to wean patient off oxygen 3. Diarrhea possibly antibiotic related - C. Diff negative. - further Flagyl held 4. Type 2 Diabetes - Januvia/Metformin held - maintaining on Novolog sliding scale 5. s/p TAVR, bioprosthetic MVR - Cardiology following - continue losartan - continue carvedilol - continue lasix PRN 6. HTN - continue coreg, losartan 7. HLD - statin 8. Hypothyroidism - TSH 2.4 - continue Levothyroxine 9. Depression/Anxiety - Sertraline DVT Prophylaxis - Lovenox SQ Visit type - Emergency Visit Emergency Visit: Yes ED Registration Date: 12/19/19 Care time: The patient presented to the Emergency Department on the above date and was hospitalized for further evaluation of their emergent condition. - New Patient This patient is new to me today: Yes Date on this admission: 12/28/19 - Critical Care Critical Care patient: No ATTENDING PHYSICIAN STATEMENT I saw and evaluated the patient. I reviewed the resident's note and discussed the case with the resident. I agree with the resident's findings and plan as documented. SUBJECTIVE: OBJECTIVE: ASSESSMENT AND PLAN:
[2019-12-26] MEDS: SERTRALINE HCL 25 MG TABLET (FP) PO SCH (22:01)
[2019-12-26] MEDS: ACETAMINOPHEN 325 MG TABLET (FP) PO PRN (23:27)
[2019-12-27] MEDS ORDERED: PIPERACILLIN/TAZOBACTAM 2.25 GM VIAL IVPB ONE ×3 (01:32→17:22)
[2019-12-27] MEDS ORDERED: DEXTROSE 5%-WATER - 50 ML IVPB ONE ×3 (01:32→17:22)
[2019-12-27] MEDS: PIPERACILLIN/TAZOB 2.25 GM 2.25 GM in DEXTROSE 5%-WATER - 50 ML IVPB SCH ×3 (01:49→17:23)
[2019-12-27] MEDS: INSULIN SLIDING SCALE (NOVOLOG) 1 VIAL SQ SCH ×4 (06:22→21:16)
[2019-12-27] MEDS: LEVOTHYROXINE NA 25 MCG TABLET (FP) PO SCH (06:22)
[2019-12-27] MEDS: ALBUTEROL SO4 0.083% IH SOL 2.5 MG/3 ML VIAL.NEB. NEB SCH ×5 (08:50→21:34)
[2019-12-27] MEDS ORDERED: FUROSEMIDE 40 MG/4 ML INJECTABLE VIAL IVPUSH ONE (09:07)
[2019-12-27] MEDS: ACETAMINOPHEN 325 MG TABLET (FP) PO PRN ×2 (09:27→17:33)
[2019-12-27] MEDS: FAMOTIDINE 20 MG TABLET PO SCH ×2 (09:27→21:15)
[2019-12-27] MEDS: ENOXAPARIN NA (PORCINE) 40 MG/0.4 ML DISP.SYRIN SQ SCH (09:27)
[2019-12-27] MEDS: LOSARTAN POTASSIUM 50 MG TABLET (FP) PO SCH (09:27)
[2019-12-27] MEDS: CARVEDILOL 3.125 MG TABLET (FP) PO SCH ×2 (09:27→21:15)
[2019-12-27] MEDS: FLUTICASONE/SALMETEROL 100 MCG/50 MCG DISKUS IH SCH ×2 (09:28→21:15)
[2019-12-27 09:58] LABS: HEMATOCRIT 31.5 % (32.4-45.2); HEMOGLOBIN 10.4 GM/dL (10.7-15.3); MCHC 32.9 g/dl (32.0-36.0); MEAN CELL VOLUME 91.2 fl (80-96); MEAN PLT VOLUME 7.8 fl (7.5-11.1); PLATELET COUNT 271 K/MM3 (134-434); RBC 3.45 M/mm3 (3.60-5.2); RDW 14.9 % (11.6-15.6); WHITE BLOOD COUNT 8.2 K/mm3 (4.0-10.0)
--- NOTE | 2019-12-27 10:08 | PN ---
Progress Note (short form) - Note Progress Note: PULMONARY States breathing is improved. No fevers or chills. Vital Signs Period Temp Pulse Resp BP Sys/Jose Pulse Ox Last 24 Hr 97 F-99 F 73-84 18-20 112-160/60-70 97-98 Gen: NAD at rest Heart: RRR, +systolic murmur Lung: decreased breath sounds at the bases Abd: soft, nontender Ext: no edema Active Medications Acetaminophen (Tylenol -) 650 mg PO Q4H PRN PRN Reason: PAIN LEVEL 4 - 6 Last Admin: 12/27/19 09:27 Dose: 650 mg Documented by: Albuterol Sulfate (Ventolin Hfa Inhaler -) 2 puff IH Q4H PRN PRN Reason: SHORT OF BREATH/WHEEZING Last Admin: 12/23/19 12:36 Dose: 2 puff Documented by: Albuterol Sulfate (Ventolin 0.083% Nebulizer Soln -) 1 amp NEB RQID [facility] Last Admin: 12/27/19 08:50 Dose: 1 amp Documented by: Carvedilol (Coreg -) 3.125 mg PO BID [facility] Last Admin: 12/27/19 09:27 Dose: 3.125 mg Documented by: Enoxaparin Sodium (Lovenox -) 40 mg SQ DAILY [facility] Last Admin: 12/27/19 09:27 Dose: 40 mg Documented by: Famotidine (Pepcid -) 20 mg PO BID [facility] Last Admin: 12/27/19 09:27 Dose: 20 mg Documented by: Piperacillin Sod/Tazobactam (Sod 2.25 gm/ Dextrose) 50 mls @ 100 mls/hr IVPB Q8H-IV [facility]; Protocol Last Admin: 12/27/19 09:27 Dose: 100 mls/hr Documented by: Insulin Aspart (Novolog Vial Sliding Scale -) 1 vial SQ ACHS [facility]; Protocol Last Admin: 12/27/19 06:22 Dose: Not Given Documented by: Levothyroxine Sodium (Synthroid -) 25 mcg PO ACBK [facility] Last Admin: 12/27/19 06:22 Dose: 25 mcg Documented by: Losartan Potassium (Cozaar -) 50 mg PO DAILY [facility] Last Admin: 12/27/19 09:27 Dose: 50 mg Documented by: Ondansetron HCl (Zofran Injection) 4 mg IVPUSH Q6H PRN PRN Reason: NAUSEA Fluticasone/Salmeterol (Advair 100mcg/50mcg -) 1 puff IH BID [facility] Last Admin: 12/27/19 09:28 Dose: 1 puff Documented by: Sertraline HCl (Zoloft -) 25 mg PO HS [facility] Last Admin: 12/26/19 22:01 Dose: 25 mg Documented by: A/P Acute on Chronic Diastolic Heart Failure UTI Aortic Stenosis s/p TAVR h/o bio MVR HTN DM Hyperlipidemia - continue lasix as needed - O2 to keep SpO2 >90% - taper off nasal cannula - inhaled bronchodilators - DVT prophylaxis Problem List - Problems (1) Acute on chronic diastolic (congestive) heart failure Code(s): I50.33 - ACUTE ON CHRONIC DIASTOLIC (CONGESTIVE) HEART FAILURE
--- NOTE | 2019-12-27 10:20 | PN ---
Progress Note, Physician History of Present Illness: OOB in chair, dyspnea improved after d/c IVF and diuresis, chest CT confirmed CHF with effusions. - Current Medication List Current Medications: Active Medications Acetaminophen (Tylenol -) 650 mg PO Q4H PRN PRN Reason: PAIN LEVEL 4 - 6 Last Admin: 12/27/19 09:27 Dose: 650 mg Documented by: Albuterol Sulfate (Ventolin Hfa Inhaler -) 2 puff IH Q4H PRN PRN Reason: SHORT OF BREATH/WHEEZING Last Admin: 12/23/19 12:36 Dose: 2 puff Documented by: Albuterol Sulfate (Ventolin 0.083% Nebulizer Soln -) 1 amp NEB RQID [facility] Last Admin: 12/27/19 08:50 Dose: 1 amp Documented by: Carvedilol (Coreg -) 3.125 mg PO BID [facility] Last Admin: 12/27/19 09:27 Dose: 3.125 mg Documented by: Enoxaparin Sodium (Lovenox -) 40 mg SQ DAILY [facility] Last Admin: 12/27/19 09:27 Dose: 40 mg Documented by: Famotidine (Pepcid -) 20 mg PO BID [facility] Last Admin: 12/27/19 09:27 Dose: 20 mg Documented by: Piperacillin Sod/Tazobactam (Sod 2.25 gm/ Dextrose) 50 mls @ 100 mls/hr IVPB Q8H-IV [facility]; Protocol Last Admin: 12/27/19 09:27 Dose: 100 mls/hr Documented by: Insulin Aspart (Novolog Vial Sliding Scale -) 1 vial SQ ACHS [facility]; Protocol Last Admin: 12/27/19 06:22 Dose: Not Given Documented by: Levothyroxine Sodium (Synthroid -) 25 mcg PO ACBK [facility] Last Admin: 12/27/19 06:22 Dose: 25 mcg Documented by: Losartan Potassium (Cozaar -) 50 mg PO DAILY [facility] Last Admin: 12/27/19 09:27 Dose: 50 mg Documented by: Ondansetron HCl (Zofran Injection) 4 mg IVPUSH Q6H PRN PRN Reason: NAUSEA Fluticasone/Salmeterol (Advair 100mcg/50mcg -) 1 puff IH BID [facility] Last Admin: 12/27/19 09:28 Dose: 1 puff Documented by: Sertraline HCl (Zoloft -) 25 mg PO HS [facility] Last Admin: 12/26/19 22:01 Dose: 25 mg Documented by: - Objective Vital Signs: Vital Signs Temperature 97 F L 12/27/19 09:16 Pulse Rate 84 12/27/19 09:16 Respiratory Rate 20 12/27/19 09:16 Blood Pressure 119/60 12/27/19 09:16 O2 Sat by Pulse Oximetry (%) 97 12/27/19 06:00 Constitutional: Yes: No Distress, Calm Neck: Yes: Supple Cardiovascular: Yes: Regular Rate and Rhythm Respiratory: Yes: Regular, Diminished, On Nasal O2 Gastrointestinal: Yes: Normal Bowel Sounds, Soft Edema: No Labs: CBC, BMP 12/27/19 09:10 INR, PTT INR 1.05 (0.83-1.09) 12/19/19 13:20 Problem List - Problems (1) Sepsis Code(s): A41.9 - SEPSIS, UNSPECIFIED ORGANISM Qualifiers: Sepsis type: sepsis due to unspecified organism Sepsis acute organ dysfunction status: without acute organ dysfunction Qualified Code(s): A41.9 - Sepsis, unspecified organism (2) UTI (urinary tract infection) Code(s): N39.0 - URINARY TRACT INFECTION, SITE NOT SPECIFIED Qualifiers: Urinary tract infection type: acute cystitis Hematuria presence: without hematuria Qualified Code(s): N30.00 - Acute cystitis without hematuria (3) S/P mitral valve replacement Code(s): Z95.2 - PRESENCE OF PROSTHETIC HEART VALVE (4) Aortic stenosis Code(s): I35.0 - NONRHEUMATIC AORTIC (VALVE) STENOSIS Qualifiers: Cardiac valve disease etiology: nonrheumatic Qualified Code(s): I35.0 - Nonrheumatic aortic (valve) stenosis (5) CAD (coronary artery disease) Code(s): I25.10 - ATHSCL HEART DISEASE OF [place] CORONARY ARTERY W/O ANG PCTRS Qualifiers: Coronary Disease-Associated Artery/Lesion type: [place] artery [place] vs. transplanted heart: [place] heart Associated angina: without angina Qualified Code(s): I25.10 - Atherosclerotic heart disease of [place] coronary artery without angina pectoris (6) COPD (chronic obstructive pulmonary disease) Code(s): J44.9 - CHRONIC OBSTRUCTIVE PULMONARY DISEASE, UNSPECIFIED Qualifiers: COPD type: unspecified COPD Qualified Code(s): J44.9 - Chronic obstructive pulmonary disease, unspecified (7) Diastolic CHF due to valvular disease Code(s): I38 - ENDOCARDITIS, VALVE UNSPECIFIED; I50.30 - UNSPECIFIED DIASTOLIC (CONGESTIVE) HEART FAILURE (8) HTN (hypertension) Code(s): I10 - ESSENTIAL (PRIMARY) HYPERTENSION Qualifiers: Hypertension type: essential hypertension Qualified Code(s): I10 - Essential (primary) hypertension (9) Hyperlipidemia Code(s): E78.5 - HYPERLIPIDEMIA, UNSPECIFIED Qualifiers: Hyperlipidemia type: pure hypercholesterolemia Qualified Code(s): E78.00 - Pure hypercholesterolemia, unspecified; E78.0 - Pure hypercholesterolemia (10) Hypothyroid Code(s): E03.9 - HYPOTHYROIDISM, UNSPECIFIED Qualifiers: Hypothyroidism type: unspecified Qualified Code(s): E03.9 - Hypothyroidism, unspecified (11) Pulmonary hypertension Code(s): I27.2 - OTHER SECONDARY PULMONARY HYPERTENSION * DO NOT USE * (12) S/P TAVR (transcatheter aortic valve replacement) Code(s): Z95.2 - PRESENCE OF PROSTHETIC HEART VALVE (13) GI bleed Code(s): K92.2 - GASTROINTESTINAL HEMORRHAGE, UNSPECIFIED Qualifiers: GI bleed type/associated pathology: angiodysplasia of stomach and duodenum Qualified Code(s): K31.811 - Angiodysplasia of stomach and duodenum with bleeding (14) Diarrhea Code(s): R19.7 - DIARRHEA, UNSPECIFIED Qualifiers: Diarrhea type: unspecified type Qualified Code(s): R19.7 - Diarrhea, unspecified (15) Shortness of breath Code(s): R06.02 - SHORTNESS OF BREATH (16) UTI (urinary tract infection) Code(s): N39.0 - URINARY TRACT INFECTION, SITE NOT SPECIFIED Qualifiers: Urinary tract infection type: site unspecified Hematuria presence: without hematuria Qualified Code(s): N39.0 - Urinary tract infection, site not specified Assessment/Plan HIDA negative 12/25/2019 No PE, small-mod right and small left effusion, mild CHF, AV and MV replacement, ALFREDO closure 1. UTI, E Coli bacteremia 2. Acute on chronic diastolic heart failure improved 2. Aortic valve disease s/p TAVR 3. MVR (bioprosthesis) 4. HTN 5. Hypercholesterolemia 6. Type 2 DM 7. Hypothyroidism 8. History of vascular ectasia Plan: 1. Empiric antibiotic course per ID and primary team, c. diff negative, surv eillance cultures NGTD thus far 2. vigilant for IE 3. DVT prophylaxis, BD and O2 to keep SpO2 >90% as needed 4. Continue losartan 50 qd and carvedilol 3.125 bid with uptitration as hemodynamics tolerate, oral diuresis as needed for next several days.
[2019-12-27 10:26] LABS: BLOOD UREA NITROGEN 19.4 mg/dL (7-18); CALCIUM 9.2 mg/dL (8.5-10.1); CREATININE 1.1 mg/dL (0.55-1.3); POTASSIUM 4.1 mmol/L (3.5-5.1)
[2019-12-27] MEDS ORDERED: INSULIN (NOVOLOG) ASPART 100 UNITS/ML 10ML VIAL ONE ×2 (11:05→21:03)
--- NOTE | 2019-12-27 11:49 | PN ---
Progress Note, Physician History of Present Illness: stable no new issues - Current Medication List Current Medications: Active Medications Acetaminophen (Tylenol -) 650 mg PO Q4H PRN PRN Reason: PAIN LEVEL 4 - 6 Last Admin: 12/27/19 09:27 Dose: 650 mg Documented by: Albuterol Sulfate (Ventolin Hfa Inhaler -) 2 puff IH Q4H PRN PRN Reason: SHORT OF BREATH/WHEEZING Last Admin: 12/23/19 12:36 Dose: 2 puff Documented by: Albuterol Sulfate (Ventolin 0.083% Nebulizer Soln -) 1 amp NEB RQID [facility] Last Admin: 12/27/19 08:50 Dose: 1 amp Documented by: Carvedilol (Coreg -) 3.125 mg PO BID [facility] Last Admin: 12/27/19 09:27 Dose: 3.125 mg Documented by: Enoxaparin Sodium (Lovenox -) 40 mg SQ DAILY [facility] Last Admin: 12/27/19 09:27 Dose: 40 mg Documented by: Famotidine (Pepcid -) 20 mg PO BID [facility] Last Admin: 12/27/19 09:27 Dose: 20 mg Documented by: Piperacillin Sod/Tazobactam (Sod 2.25 gm/ Dextrose) 50 mls @ 100 mls/hr IVPB Q8H-IV [facility]; Protocol Last Admin: 12/27/19 09:27 Dose: 100 mls/hr Documented by: Insulin Aspart (Novolog Vial Sliding Scale -) 1 vial SQ ACHS [facility]; Protocol Last Admin: 12/27/19 11:06 Dose: 2 unit Documented by: Levothyroxine Sodium (Synthroid -) 25 mcg PO ACBK [facility] Last Admin: 12/27/19 06:22 Dose: 25 mcg Documented by: Losartan Potassium (Cozaar -) 50 mg PO DAILY [facility] Last Admin: 12/27/19 09:27 Dose: 50 mg Documented by: Ondansetron HCl (Zofran Injection) 4 mg IVPUSH Q6H PRN PRN Reason: NAUSEA Fluticasone/Salmeterol (Advair 100mcg/50mcg -) 1 puff IH BID [facility] Last Admin: 12/27/19 09:28 Dose: 1 puff Documented by: Sertraline HCl (Zoloft -) 25 mg PO HS [facility] Last Admin: 12/26/19 22:01 Dose: 25 mg Documented by: - Objective Vital Signs: Vital Signs Temperature 97 F L 12/27/19 09:16 Pulse Rate 84 12/27/19 09:16 Respiratory Rate 12/27/19 09:16 Blood Pressure 119/60 12/27/19 09:16 O2 Sat by Pulse Oximetry (%) 97 12/27/19 10:00 Constitutional: Yes: No Distress, Calm HENT: Yes: Atraumatic, Normocephalic Neck: Yes: Supple, Trachea Midline Cardiovascular: Yes: Regular Rate and Rhythm Respiratory: Yes: Regular, CTA Bilaterally Gastrointestinal: Yes: Normal Bowel Sounds, Soft Musculoskeletal: Yes: WNL Extremities: Yes: WNL Neurological: Yes: Alert, Oriented Psychiatric: Yes: Alert Labs: CBC, BMP 12/27/19 09:10 12/27/19 09:10 INR, PTT INR 1.05 (0.83-1.09) 12/19/19 13:20
[2019-12-27] MEDS ORDERED: ZINC OXIDE/PANTHENOL/VITAMIN E 56 GM TUBE TP PRN (16:08)
--- NOTE | 2019-12-27 16:57 | PN ---
Teaching Attending Note Name of Resident: Bryan Diggs ATTENDING PHYSICIAN STATEMENT I saw and evaluated the patient. I reviewed the resident's note and discussed the case with the resident. I agree with the resident's findings and plan as documented. SUBJECTIVE: Feeling well. No further abdominal pain. Last diarrheal episoide yesterday. No fever/chills/nausea/vomiting. OBJECTIVE: Afebrile, hemodynamically Stable. SpO2 93%RA Last Vital Signs Temp Pulse Resp BP Pulse Ox 98.9 F 70 20 104/58 L 93 L 12/27/19 14:26 12/27/19 14:26 12/27/19 14:26 12/27/19 14:26 12/27/19 14:00 Heart - S1, S2, SM Lungs - decreased air entry at bases. Abdomen - Soft, minimal RUQ tenderness on deep palpation. Bowel Sounds normal. Extremities - no edema, no calf tenderness Laboratory Results - last 24 hr 12/26/19 12/27/19 12/27/19 21:59 06:21 09:10 WBC 8.2 RBC 3.45 L Hgb 10.4 L Hct 31.5 L MCV 91.2 MCH 30.0 MCHC 32.9 RDW 14.9 Plt Count 271 MPV 7.8 Sodium Potassium Chloride Carbon Dioxide Anion Gap BUN Creatinine Est GFR (CKD-EPI)AfAm Est GFR (CKD-EPI)NonAf POC Glucometer 185 146 Random Glucose Calcium 12/27/19 12/27/19 12/27/19 09:10 10:59 16:50 WBC RBC Hgb Hct MCV MCH MCHC RDW Plt Count MPV Sodium 138 Potassium 4.1 Chloride 95 L Carbon Dioxide 37 H Anion Gap 7 L BUN 19.4 H Creatinine 1.1 Est GFR (CKD-EPI)AfAm 53.02 Est GFR (CKD-EPI)NonAf 45.74 POC Glucometer 221 162 Random Glucose 206 H Calcium 9.2 Current Medications Generic Name Dose Route Start Last Admin Trade Name Freq PRN Reason Stop Dose Admin Acetaminophen 650 mg 12/22/19 04:59 12/27/19 09:27 Tylenol - PO 650 mg Q4H PRN Administration PAIN LEVEL 4 - 6 Albuterol Sulfate 2 puff 12/20/19 11:56 12/23/19 12:36 Ventolin Hfa Inhaler - IH 2 puff Q4H PRN Administration SHORT OF BREATH/WHEEZING Albuterol Sulfate 1 amp 12/23/19 12:15 12/27/19 15:06 Ventolin 0.083% Nebulizer Soln - NEB 1 amp RQID [facility] Administration Carvedilol 3.125 mg 12/24/19 12:00 12/27/19 09:27 Coreg - PO 3.125 mg BID [facility] Administration Enoxaparin Sodium 40 mg 12/20/19 10:00 12/27/19 09:27 Lovenox - SQ 40 mg DAILY [facility] Administration Famotidine 20 mg 12/20/19 22:00 12/27/19 09:27 Pepcid - PO 20 mg BID [facility] Administration Furosemide 20 mg 12/28/19 10:00 Lasix - PO DAILY [facility] Piperacillin Sod/Tazobactam 50 mls @ 100 mls/hr 12/20/19 15:00 12/27/19 17:23 Sod 2.25 gm/ Dextrose IVPB 100 mls/hr Q8H-IV [facility] Administration Protocol Insulin Aspart 1 vial 12/20/19 16:30 12/27/19 16:53 Novolog Vial Sliding Scale - SQ 1 unit ACHS [facility] Administration Protocol Levothyroxine Sodium 25 mcg 12/21/19 07:00 12/27/19 06:22 Synthroid - PO 25 mcg ACBK [facility] Administration Losartan Potassium 50 mg 12/24/19 10:00 12/27/19 09:27 Cozaar - PO 50 mg DAILY [facility] Administration Ondansetron HCl 4 mg 12/19/19 17:42 Zofran Injection IVPUSH Q6H PRN NAUSEA Fluticasone/Salmeterol 1 puff 12/23/19 12:15 12/27/19 09:28 Advair 100mcg/50mcg - IH 1 puff BID [facility] Administration Sertraline HCl 25 mg 12/20/19 22:00 12/26/19 22:01 Zoloft - PO 25 mg HS [facility] Administration Zinc Oxide/Panthenol/Vitamin E 1 applic 12/27/19 16:08 Balmex Cream - TP ASDIR PRN HYGEINE ASSESSMENT AND PLAN: 84 year old female with a history of Chronic Diastolic CHF, DM 2, HTN, Hx GI bleed secondary to bowel vascular ectasias, HLD, status post TAVR, bioprosthetic MVR, Asthma, presented to ED with complaints of diffuse abdominal pain, found to have UTI with Bacteremia and acute cholecystitis. 1. Sepsis secondary to Acute Cholecystitis/Ecoli UTI with Bacteremia - sepsis resolved. HIDA scan shows patent cystic duct. Evaluated by Surgery and recommended for conservative management due to high risk of surgical intervention. Urine/Blood Cx positive for Ecoli. Repeat Blood Cx - no growth. Improving with IV Zosyn - Day 8 (for transition to oral Augmentin on discharge as per ID) 2. Acute Hypoxic Respiratory Failure requiring supplemental O2 - likely sec to Acute on Chronic Diastolic CHF CTA Chest - no PE. Small to moderate bilateral pleural effusions and vascular congestion. s/p closure of left atrial appendage, s/p AV and MV replacements. Not in respiratry distress. Able to wean off Supplemental O2 today - SpO2 93% RA. Will continue oral Lasix 20mg daily as per Cardio. 3. Diarrhea ? Abx related - resolving Cdiff negative. Further Flagyl held. 4. DM 2 - Januvia/Metformin held. Maintain on Novolog sliding scale. 5. s/p TAVR, Bioprosthetic MVR Cardiology following - Continue losartan and carvedilol. 6. HTN - continue Coreg, Losartan 7. HLD - continue Statin 8. Hypothyrosidism - TSH 2.4. Continue Levothyroxine. 9. Depression/Anxiety - continue Sertraline. DVT Px - Lovenox SQ Dispo - [facility], awaiting repeat COVID PCR test
--- NOTE | 2019-12-27 18:14 | PN ---
Physical Exam: SUBJECTIVE: 84 year old female patient with past medical history that includes Diastolic Heart Failure s/p TAVR, DM, HTN, HLD, Mitral Valve replacement, hypothyroidism, asthma, spondylolithiasisi with L5 nerve compression, and history of GI bleed, who presented to the ED with fever, nausea, and vomiting and was found to have sepsis, cholecystitis, and a UTI on vitals, imaging, and lab work. Patient seen and examined at bedside. Patient reports last watery diarrhea was yesterday. Patient denied abdominal pain, fever, chills, nausea, or vomiting. OBJECTIVE: Vital Signs Period Temp Pulse Resp BP Sys/Jose Pulse Ox Last 24 Hr 97 F-98.9 F 70-84 20-20 104-160/58-70 93-97 GENERAL: The patient is awake, alert, and fully oriented, in no acute distress. HEAD: Normal with no signs of trauma. EYES: Extraocular movements intact. No ptosis. ENT: Ears normal, nares patent, moist mucous membranes. NECK: Trachea midline, full range of motion, supple. LUNGS: Decreased breath sounds bilaterally. HEART: Regular rate and rhythm, S1, S2 without murmur, rub or gallop. ABDOMEN: Mild RUQ pain on deep palpation. Soft, normoactive bowel sounds, no guarding, no masses. EXTREMITIES: 2+ pulses, warm, well-perfused, no edema. NEUROLOGICAL: Normal speech, gait not observed. PSYCH: Normal mood, normal affect. SKIN: Warm, dry, normal turgor, no rashes or lesions noted Laboratory Results - last 24 hr 12/26/19 12/27/19 12/27/19 21:59 06:21 09:10 WBC 8.2 RBC 3.45 L Hgb 10.4 L Hct 31.5 L MCV 91.2 MCH 30.0 MCHC 32.9 RDW 14.9 Plt Count 271 MPV 7.8 Sodium Potassium Chloride Carbon Dioxide Anion Gap BUN Creatinine Est GFR (CKD-EPI)AfAm Est GFR (CKD-EPI)NonAf POC Glucometer 185 146 Random Glucose Calcium 12/27/19 12/27/19 12/27/19 09:10 10:59 16:50 WBC RBC Hgb Hct MCV MCH MCHC RDW Plt Count MPV Sodium 138 Potassium 4.1 Chloride 95 L Carbon Dioxide 37 H Anion Gap 7 L BUN 19.4 H Creatinine 1.1 Est GFR (CKD-EPI)AfAm 53.02 Est GFR (CKD-EPI)NonAf 45.74 POC Glucometer 221 162 Random Glucose 206 H Calcium 9.2 Active Medications Generic Name Dose Route Start Last Admin Trade Name Freq PRN Reason Stop Dose Admin Acetaminophen 650 mg 12/22/19 04:59 12/27/19 17:33 Tylenol - PO 650 mg Q4H PRN Administration PAIN LEVEL 4 - 6 Albuterol Sulfate 2 puff 12/20/19 11:56 12/23/19 12:36 Ventolin Hfa Inhaler - IH 2 puff Q4H PRN Administration SHORT OF BREATH/WHEEZING Albuterol Sulfate 1 amp 12/23/19 12:15 12/27/19 15:06 Ventolin 0.083% Nebulizer Soln - NEB 1 amp RQID [facility] Administration Carvedilol 3.125 mg 12/24/19 12:00 12/27/19 09:27 Coreg - PO 3.125 mg BID [facility] Administration Enoxaparin Sodium 40 mg 12/20/19 10:00 12/27/19 09:27 Lovenox - SQ 40 mg DAILY [facility] Administration Famotidine 20 mg 12/20/19 22:00 12/27/19 09:27 Pepcid - PO 20 mg BID [facility] Administration Furosemide 20 mg 12/28/19 10:00 Lasix - PO DAILY [facility] Piperacillin Sod/Tazobactam 50 mls @ 100 mls/hr 12/20/19 15:00 12/27/19 17:23 Sod 2.25 gm/ Dextrose IVPB 100 mls/hr Q8H-IV [facility] Administration Protocol Insulin Aspart 1 vial 12/20/19 16:30 12/27/19 16:53 Novolog Vial Sliding Scale - SQ 1 unit ACHS [facility] Administration Protocol Levothyroxine Sodium 25 mcg 12/21/19 07:00 12/27/19 06:22 Synthroid - PO 25 mcg ACBK [facility] Administration Losartan Potassium 50 mg 12/24/19 10:00 12/27/19 09:27 Cozaar - PO 50 mg DAILY [facility] Administration Ondansetron HCl 4 mg 12/19/19 17:42 Zofran Injection IVPUSH Q6H PRN NAUSEA Fluticasone/Salmeterol 1 puff 12/23/19 12:15 12/27/19 09:28 Advair 100mcg/50mcg - IH 1 puff BID [facility] Administration Sertraline HCl 25 mg 12/20/19 22:00 12/26/19 22:01 Zoloft - PO 25 mg HS [facility] Administration Zinc Oxide/Panthenol/Vitamin E 1 applic 12/27/19 16:08 Balmex Cream - TP ASDIR PRN HYGEINE ASSESSMENT/PLAN: 84 year old female patient with past medical history that includes Diastolic Heart Failure s/p TAVR, DM, HTN, HLD, Mitral Valve replacement, hypothyroidism, asthma, spondylolithiasisi with L5 nerve compression, and history of GI bleed, who presented to the ED with fever, nausea, and vomiting and was found to have sepsis, cholecystitis, and a UTI on vitals, imaging, and lab work. 1. Sepsis secondary to Acute Cholecystitis or EColi UTI with bacteremia - sepsis resolved - urine and blood cultures were positive for EColi on 12/18 - repeat blood cultures showed no growth - evaluated by surgery and recommended for conservative treatment due to the high risk of surgical intervention - Day 8 of IV Zosyn (transition to oral augmentin on discharge per ID) 2. Acute Hypoxic Respiratory Failure requiring supplemental oxygen - CTA chest showed no PE, small to moderate bilateral pleural effusions and vascular congestion. s/p closure of left atrial appendage, s/p AV and MV replacements. - not in respiratory distress - possibly able to wean off supplemental oxygen today - continue Lasix daily per Cardio 3. Diarrhea possibly antibiotics related - resolving - C Diff negative - Flagyl held 4. Type 2 Diabetes - Januvia/Metformin held - maintain novolog sliding scale 5. s/p TAVR, bioprosthetic MVR - Cardiology following - continue Losartan and Carvedilol 6. HTN - continue Coreg and Losartan 7. HLD - continue Statin 8. Hypothyroidism - TSH of 2.4 9. Depression/Anxiety - Sertraline DVT Prophylaxis - Lovenox SQ Dispo - [facility] Visit type - Emergency Visit Emergency Visit: Yes ED Registration Date: 12/19/19 Care time: The patient presented to the Emergency Department on the above date and was hospitalized for further evaluation of their emergent condition. - New Patient This patient is new to me today: No - Critical Care Critical Care patient: No ATTENDING PHYSICIAN STATEMENT I saw and evaluated the patient. I reviewed the resident's note and discussed the case with the resident. I agree with the resident's findings and plan as documented. SUBJECTIVE: OBJECTIVE: ASSESSMENT AND PLAN:
[2019-12-27] MEDS: SERTRALINE HCL 25 MG TABLET (FP) PO SCH (21:15)
[2019-12-28] MEDS ORDERED: PIPERACILLIN/TAZOBACTAM 2.25 GM VIAL IVPB ONE ×3 (01:26→17:05)
[2019-12-28] MEDS ORDERED: DEXTROSE 5%-WATER - 50 ML IVPB ONE ×3 (01:26→17:05)
[2019-12-28] MEDS: PIPERACILLIN/TAZOB 2.25 GM 2.25 GM in DEXTROSE 5%-WATER - 50 ML IVPB SCH ×3 (01:35→17:12)
[2019-12-28] MEDS: LEVOTHYROXINE NA 25 MCG TABLET (FP) PO SCH (06:25)
[2019-12-28] MEDS: INSULIN SLIDING SCALE (NOVOLOG) 1 VIAL SQ SCH ×4 (06:46→21:11)
--- NOTE | 2019-12-28 07:47 | PN ---
Progress Note, Physician History of Present Illness: pulmonary alert,comfortable,oob-chair,-sob - Current Medication List Current Medications: Active Medications Acetaminophen (Tylenol -) 650 mg PO Q4H PRN PRN Reason: PAIN LEVEL 4 - 6 Last Admin: 12/27/19 17:33 Dose: 650 mg Documented by: Albuterol Sulfate (Ventolin Hfa Inhaler -) 2 puff IH Q4H PRN PRN Reason: SHORT OF BREATH/WHEEZING Last Admin: 12/23/19 12:36 Dose: 2 puff Documented by: Albuterol Sulfate (Ventolin 0.083% Nebulizer Soln -) 1 amp NEB RQID [facility] Last Admin: 12/27/19 21:34 Dose: 1 amp Documented by: Carvedilol (Coreg -) 3.125 mg PO BID [facility] Last Admin: 12/27/19 21:15 Dose: 3.125 mg Documented by: Enoxaparin Sodium (Lovenox -) 40 mg SQ DAILY [facility] Last Admin: 12/27/19 09:27 Dose: 40 mg Documented by: Famotidine (Pepcid -) 20 mg PO BID [facility] Last Admin: 12/27/19 21:15 Dose: 20 mg Documented by: Furosemide (Lasix -) 20 mg PO DAILY [facility] Piperacillin Sod/Tazobactam (Sod 2.25 gm/ Dextrose) 50 mls @ 100 mls/hr IVPB Q8H-IV [facility]; Protocol Last Admin: 12/28/19 01:35 Dose: 100 mls/hr Documented by: Insulin Aspart (Novolog Vial Sliding Scale -) 1 vial SQ ACHS [facility]; Protocol Last Admin: 12/28/19 06:46 Dose: 1 unit Documented by: Levothyroxine Sodium (Synthroid -) 25 mcg PO ACBK [facility] Last Admin: 12/28/19 06:25 Dose: 25 mcg Documented by: Losartan Potassium (Cozaar -) 50 mg PO DAILY [facility] Last Admin: 12/27/19 09:27 Dose: 50 mg Documented by: Ondansetron HCl (Zofran Injection) 4 mg IVPUSH Q6H PRN PRN Reason: NAUSEA Fluticasone/Salmeterol (Advair 100mcg/50mcg -) 1 puff IH BID [facility] Last Admin: 12/27/19 21:15 Dose: 1 puff Documented by: Sertraline HCl (Zoloft -) 25 mg PO HS [facility] Last Admin: 12/27/19 21:15 Dose: 25 mg Documented by: Zinc Oxide/Panthenol/Vitamin E (Balmex Cream -) 1 applic TP ASDIR PRN PRN Reason: HYGEINE - Objective Vital Signs: Vital Signs Temperature 99.1 F 12/28/19 05:00 Pulse Rate 80 12/28/19 05:00 Respiratory Rate 20 12/28/19 05:00 Blood Pressure 140/82 12/28/19 05:00 O2 Sat by Pulse Oximetry (%) 96 12/28/19 06:00 Constitutional: Yes: Well Nourished, Calm Eyes: Yes: WNL HENT: Yes: WNL Neck: Yes: WNL Cardiovascular: Yes: Regular Rate and Rhythm, S1, S2 Respiratory: Yes: CTA Bilaterally Gastrointestinal: Yes: Normal Bowel Sounds, Soft Extremities: Yes: WNL Edema: No Labs: INR, PTT Assessment/Plan A/P Acute on Chronic Diastolic Heart Failure clinically improved UTI Aortic Stenosis s/p TAVR h/o bio MVR HTN DM Hyperlipidemia - lasix as needed - O2 to keep SpO2 >90% - inhaled bronchodilators - DVT prophylaxis Problem List - Problems (1) Acute on chronic diastolic (congestive) heart failure Code(s): I50.33 - ACUTE ON CHRONIC DIASTOLIC (CONGESTIVE) HEART FAILURE
[2019-12-28 07:59] LABS: HEMATOCRIT 29.3 % (32.4-45.2); HEMOGLOBIN 9.7 GM/dL (10.7-15.3); MCH 29.8 pg (25.7-33.7); MCHC 33.2 g/dl (32.0-36.0); MEAN CELL VOLUME 89.6 fl (80-96); MEAN PLT VOLUME 7.8 fl (7.5-11.1); PLATELET COUNT 277 K/MM3 (134-434); RBC 3.26 M/mm3 (3.60-5.2); RDW 14.4 % (11.6-15.6); WHITE BLOOD COUNT 7.7 K/mm3 (4.0-10.0)
[2019-12-28] MEDS: ALBUTEROL SO4 0.083% IH SOL 2.5 MG/3 ML VIAL.NEB. NEB SCH ×2 (08:00→11:55)
[2019-12-28 08:12] LABS: BLOOD UREA NITROGEN 21.3 mg/dL (7-18); CALCIUM 9.2 mg/dL (8.5-10.1); PHOSPHOROUS 3.6 mg/dL (2.5-4.9); POTASSIUM 3.9 mmol/L (3.5-5.1)
[2019-12-28] MEDS: ENOXAPARIN NA (PORCINE) 40 MG/0.4 ML DISP.SYRIN SQ SCH (09:04)
[2019-12-28] MEDS: CARVEDILOL 3.125 MG TABLET (FP) PO SCH ×2 (09:04→21:02)
[2019-12-28] MEDS: FAMOTIDINE 20 MG TABLET PO SCH ×2 (09:05→21:02)
[2019-12-28] MEDS: FUROSEMIDE 20 MG TABLET (FP) PO SCH (09:05)
[2019-12-28] MEDS: LOSARTAN POTASSIUM 50 MG TABLET (FP) PO SCH (09:05)
[2019-12-28] MEDS: FLUTICASONE/SALMETEROL 100 MCG/50 MCG DISKUS IH SCH ×2 (09:05→21:03)
--- NOTE | 2019-12-28 15:11 | PN ---
Progress Note, Physician Chief Complaint: Events noted Not in distress History of Present Illness: Patient was seen and examined. Awake and alert. Chart was reviewed Denies chest pain, SOB or palpitations - Current Medication List Current Medications: Active Medications Acetaminophen (Tylenol -) 650 mg PO Q4H PRN PRN Reason: PAIN LEVEL 4 - 6 Last Admin: 12/27/19 17:33 Dose: 650 mg Documented by: Albuterol Sulfate (Ventolin Hfa Inhaler -) 2 puff IH Q4H PRN PRN Reason: SHORT OF BREATH/WHEEZING Last Admin: 12/23/19 12:36 Dose: 2 puff Documented by: Carvedilol (Coreg -) 3.125 mg PO BID [facility] Last Admin: 12/28/19 09:04 Dose: 3.125 mg Documented by: Enoxaparin Sodium (Lovenox -) 40 mg SQ DAILY [facility] Last Admin: 12/28/19 09:04 Dose: 40 mg Documented by: Famotidine (Pepcid -) 20 mg PO BID [facility] Last Admin: 12/28/19 09:05 Dose: 20 mg Documented by: Furosemide (Lasix -) 20 mg PO DAILY [facility] Last Admin: 12/28/19 09:05 Dose: 20 mg Documented by: Piperacillin Sod/Tazobactam (Sod 2.25 gm/ Dextrose) 50 mls @ 100 mls/hr IVPB Q8H-IV [facility]; Protocol Last Admin: 12/28/19 09:04 Dose: 100 mls/hr Documented by: Insulin Aspart (Novolog Vial Sliding Scale -) 1 vial SQ ACHS [facility]; Protocol Last Admin: 12/28/19 11:37 Dose: 1 unit Documented by: Levothyroxine Sodium (Synthroid -) 25 mcg PO ACBK [facility] Last Admin: 12/28/19 06:25 Dose: 25 mcg Documented by: Losartan Potassium (Cozaar -) 50 mg PO DAILY [facility] Last Admin: 12/28/19 09:05 Dose: 50 mg Documented by: Ondansetron HCl (Zofran Injection) 4 mg IVPUSH Q6H PRN PRN Reason: NAUSEA Fluticasone/Salmeterol (Advair 100mcg/50mcg -) 1 puff IH BID [facility] Last Admin: 12/28/19 09:05 Dose: 1 puff Documented by: Sertraline HCl (Zoloft -) 25 mg PO HS [facility] Last Admin: 12/27/19 21:15 Dose: 25 mg Documented by: Zinc Oxide/Panthenol/Vitamin E (Balmex Cream -) 1 applic TP ASDIR PRN PRN Reason: HYGEINE - Objective Vital Signs: Vital Signs Temperature 99.3 F 12/28/19 14:15 Pulse Rate 74 12/28/19 14:15 Respiratory Rate 18 12/28/19 14:15 Blood Pressure 120/57 L 12/28/19 14:15 O2 Sat by Pulse Oximetry (%) 99 12/28/19 09:00 Eyes: Yes: PERRL HENT: Yes: Atraumatic Neck: Yes: Supple Cardiovascular: Yes: Regular Rate and Rhythm, S1, S2 Respiratory: Yes: WNL Gastrointestinal: Yes: Normal Bowel Sounds, Soft. No: Tenderness Edema: No Labs: CBC, BMP 12/28/19 06:58 12/28/19 06:58 Problem List - Problems (1) UTI (urinary tract infection) Code(s): N39.0 - URINARY TRACT INFECTION, SITE NOT SPECIFIED Qualifiers: Urinary tract infection type: acute cystitis Hematuria presence: without hematuria Qualified Code(s): N30.00 - Acute cystitis without hematuria (2) S/P mitral valve replacement Code(s): Z95.2 - PRESENCE OF PROSTHETIC HEART VALVE (3) T2DM (type 2 diabetes mellitus) Code(s): E11.9 - TYPE 2 DIABETES MELLITUS WITHOUT COMPLICATIONS Qualifiers: Diabetes mellitus assisted insulin use: without assisted use (4) CAD (coronary artery disease) Code(s): I25.10 - ATHSCL HEART DISEASE OF [place] CORONARY ARTERY W/O ANG PCTRS Qualifiers: Coronary Disease-Associated Artery/Lesion type: [place] artery [place] vs. transplanted heart: [place] heart Associated angina: without angina Qualified Code(s): I25.10 - Atherosclerotic heart disease of [place] coronary artery without angina pectoris (5) COPD (chronic obstructive pulmonary disease) Code(s): J44.9 - CHRONIC OBSTRUCTIVE PULMONARY DISEASE, UNSPECIFIED Qualifiers: COPD type: unspecified COPD Qualified Code(s): J44.9 - Chronic obstructive pulmonary disease, unspecified (6) HTN (hypertension) Code(s): I10 - ESSENTIAL (PRIMARY) HYPERTENSION Qualifiers: Hypertension type: essential hypertension Qualified Code(s): I10 - Essential (primary) hypertension (7) Hypothyroid Code(s): E03.9 - HYPOTHYROIDISM, UNSPECIFIED Qualifiers: Hypothyroidism type: unspecified Qualified Code(s): E03.9 - Hypothyroidism, unspecified (8) S/P TAVR (transcatheter aortic valve replacement) Code(s): Z95.2 - PRESENCE OF PROSTHETIC HEART VALVE Assessment/Plan 1. UTI 2. Aortic valve disease s/p TAVR 3. MVR (bioprosthesis) 4. HTN 5. Hypercholesterolemia 6. Type 2 DM 7. Hypothyroidism 8. History of vascular ectasia PLAN: 1. Continue antibiotics 2. Losartan 50 mg QD and Carvedilol 3.125 mg BID 3. Diuretics 4. DVT prophylaxis Abiodun Cabral MD
--- NOTE | 2019-12-28 17:26 | PN ---
Progress Note (short form) - Note Progress Note: SUBJECTIVE: Feeling well. No further abdominal pain/diarrhea. No fever /chills/nausea/vomiting. OBJECTIVE: Afebrile, Hemodynamically Stable. SpO2 99% on 1L Last Vital Signs Temp Pulse Resp BP Pulse Ox 99 F 71 20 136/74 99 12/28/19 16:30 12/28/19 16:30 12/28/19 16:30 12/28/19 16:30 12/28/19 16:00 Heart - S1, S2, SM Lungs - decreased air entry at bases. Abdomen - Soft, non-tender. Bowel Sounds normal. Extremities - no edema, no calf tenderness Laboratory Results - last 24 hr 12/27/19 12/28/19 12/28/19 21:12 06:45 06:58 WBC 7.7 RBC 3.26 L Hgb 9.7 L Hct 29.3 L MCV 89.6 MCH 29.8 MCHC 33.2 RDW 14.4 Plt Count 277 MPV 7.8 Sodium Potassium Chloride Carbon Dioxide Anion Gap BUN Creatinine Est GFR (CKD-EPI)AfAm Est GFR (CKD-EPI)NonAf POC Glucometer 184 155 Random Glucose Calcium Phosphorus Magnesium 12/28/19 12/28/19 12/28/19 06:58 11:28 16:26 WBC RBC Hgb Hct MCV MCH MCHC RDW Plt Count MPV Sodium 138 Potassium 3.9 Chloride 94 L Carbon Dioxide 40 H Anion Gap 4 L BUN 21.3 H Creatinine 1.0 Est GFR (CKD-EPI)AfAm 59.49 Est GFR (CKD-EPI)NonAf 51.33 POC Glucometer 196 151 Random Glucose 152 H Calcium 9.2 Phosphorus 3.6 Magnesium 2.0 Current Medications Generic Name Dose Route Start Last Admin Trade Name Freq PRN Reason Stop Dose Admin Acetaminophen 650 mg 12/22/19 04:59 12/27/19 17:33 Tylenol - PO 650 mg Q4H PRN Administration PAIN LEVEL 4 - 6 Albuterol Sulfate 2 puff 12/20/19 11:56 12/23/19 12:36 Ventolin Hfa Inhaler - IH 2 puff Q4H PRN Administration SHORT OF BREATH/WHEEZING Carvedilol 3.125 mg 12/24/19 12:00 12/28/19 09:04 Coreg - PO 3.125 mg BID [facility] Administration Enoxaparin Sodium 40 mg 12/20/19 10:00 12/28/19 09:04 Lovenox - SQ 40 mg DAILY [facility] Administration Famotidine 20 mg 12/20/19 22:00 12/28/19 09:05 Pepcid - PO 20 mg BID [facility] Administration Furosemide 20 mg 12/28/19 10:00 12/28/19 09:05 Lasix - PO 20 mg DAILY [facility] Administration Piperacillin Sod/Tazobactam 50 mls @ 100 mls/hr 12/20/19 15:00 12/28/19 17:12 Sod 2.25 gm/ Dextrose IVPB 100 mls/hr Q8H-IV [facility] Administration Protocol Insulin Aspart 1 vial 12/20/19 16:30 12/28/19 16:32 Novolog Vial Sliding Scale - SQ 1 unit ACHS [facility] Administration Protocol Levothyroxine Sodium 25 mcg 12/21/19 07:00 12/28/19 06:25 Synthroid - PO 25 mcg ACBK [facility] Administration Losartan Potassium 50 mg 12/24/19 10:00 12/28/19 09:05 Cozaar - PO 50 mg DAILY [facility] Administration Ondansetron HCl 4 mg 12/19/19 17:42 Zofran Injection IVPUSH Q6H PRN NAUSEA Fluticasone/Salmeterol 1 puff 12/23/19 12:15 12/28/19 09:05 Advair 100mcg/50mcg - IH 1 puff BID [facility] Administration Sertraline HCl 25 mg 12/20/19 22:00 12/27/19 21:15 Zoloft - PO 25 mg HS [facility] Administration Zinc Oxide/Panthenol/Vitamin E 1 applic 12/27/19 16:08 Balmex Cream - TP ASDIR PRN HYGEINE Home Medications Medication Instructions Recorded Sitagliptin Phosphate [Januvia] 100 mg PO DAILY 12/18/14 Atorvastatin Ca [Lipitor] 10 mg PO HS #1 tablet 12/22/14 Cholecalciferol (Vitamin D3) 1,000 unit PO DAILY 03/10/16 [Vitamin D3 -] Latanoprost 0.005% Eye Drops 1 drop OU HS 07/25/16 [Xalatan 0.005% Eye Drops -] Ascorbic Acid [Vitamin C] 500 mg PO DAILY 05/10/17 Levothyroxine [Synthroid -] 0.025 mcg PO ACBK 11/14/17 Sertraline HCl [Zoloft] 25 mg PO HS 05/10/17 Calcium 250Mg/Vit-D 125 Units 1 combo PO DAILY 10/24/17 [Oscal 250 mg+D -] Ferrous Sulfate 325 mg PO DAILY 10/24/17 Metformin HCl [Glucophage] 500 mg PO BID 10/24/17 [place]-3/Dha/Epa/Fish Oil [Fish Oil 1 each PO DAILY 10/24/17 [place]-3 EC 1,200 mg] Albuterol Sulfate 0.5% [Ventolin 5 mg IH Q6H PRN 04/03/18 0.5% Nebulizing Soln. -] Aspirin [Aspirin EC] 81 mg PO DAILY 04/03/18 Fluticasone/Vilanterol [Breo 1 mcg IH DAILY 04/03/18 Ellipta 100-25 Mcg INH] Lactobacillus Acidophilus [Bacid -] 1 tab PO DAILY tab 04/07/18 Famotidine [Pepcid -] 20 mg PO BID 12/20/19 Losartan Potassium [Cozaar -] 50 mg PO DAILY 12/20/19 Acetaminophen [Tylenol .Regular 650 mg PO Q4H PRN tablet 12/25/19 Strength -] Carvedilol [Coreg -] 3.125 mg PO BID tablet 12/25/19 Cefpodoxime Proxetil [Vantin -] 200 mg PO Q12H #14 tablet 12/25/19 Docusate Sodium [Colace -] 100 mg PO Q12H PRN capsule 12/25/19 ASSESSMENT AND PLAN: 84 year old female with a history of Chronic Diastolic CHF, DM 2, HTN, Hx GI bleed secondary to bowel vascular ectasias, HLD, status post TAVR, bioprosthetic MVR, Asthma, presented to ED with complaints of diffuse abdominal pain, found to have UTI with Bacteremia and acute cholecystitis. 1. Sepsis secondary to Acute Cholecystitis/Ecoli UTI with Bacteremia - sepsis resolved. HIDA scan shows patent cystic duct. Evaluated by Surgery and recommended for conservative management due to high risk of surgical intervention. Urine/Blood Cx positive for Ecoli. Repeat Blood Cx - no growth. Improving with IV Zosyn - Day 9 (for transition to oral Augmentin on discharge as per ID) 2. Acute Hypoxic Respiratory Failure requiring supplemental O2 - likely sec to Acute on Chronic Diastolic CHF CTA Chest - no PE. Small to moderate bilateral pleural effusions and vascular co ngestion. s/p closure of left atrial appendage, s/p AV and MV replacements. Not in respiratry distress. SpO2 99% on 1L - for weaning off O2. Will continue oral Lasix 20mg daily as per Cardio. 3. Diarrhea ? Abx related - resolving Cdiff negative. Further Flagyl held. 4. DM 2 - Januvia/Metformin held. Maintain on Novolog sliding scale. 5. s/p TAVR, Bioprosthetic MVR Cardiology following - Continue losartan and carvedilol. 6. HTN - continue Coreg, Losartan 7. HLD - continue Statin 8. Hypothyrosidism - TSH 2.4. Continue Levothyroxine. 9. Depression/Anxiety - continue Sertraline. DVT Px - Lovenox SQ Dispo - [facility], awaiting repeat COVID PCR test Visit type - Emergency Visit Emergency Visit: Yes ED Registration Date: 12/19/19 Care time: The patient presented to the Emergency Department on the above date and was hospitalized for further evaluation of their emergent condition. - New Patient This patient is new to me today: No - Critical Care Critical Care patient: No - Discharge Referral Referred to [facility] Med P.C.: No
--- NOTE | 2019-12-28 18:12 | PN ---
Progress Note, Physician History of Present Illness: Pt overall feeling well. No n/v, denies abd pain. Tmax 99.3F. No other events noted. - Current Medication List Current Medications: Active Medications Acetaminophen (Tylenol -) 650 mg PO Q4H PRN PRN Reason: PAIN LEVEL 4 - 6 Last Admin: 12/27/19 17:33 Dose: 650 mg Documented by: Albuterol Sulfate (Ventolin Hfa Inhaler -) 2 puff IH Q4H PRN PRN Reason: SHORT OF BREATH/WHEEZING Last Admin: 12/23/19 12:36 Dose: 2 puff Documented by: Carvedilol (Coreg -) 3.125 mg PO BID [facility] Last Admin: 12/28/19 09:04 Dose: 3.125 mg Documented by: Enoxaparin Sodium (Lovenox -) 40 mg SQ DAILY [facility] Last Admin: 12/28/19 09:04 Dose: 40 mg Documented by: Famotidine (Pepcid -) 20 mg PO BID [facility] Last Admin: 12/28/19 09:05 Dose: 20 mg Documented by: Furosemide (Lasix -) 20 mg PO DAILY [facility] Last Admin: 12/28/19 09:05 Dose: 20 mg Documented by: Piperacillin Sod/Tazobactam (Sod 2.25 gm/ Dextrose) 50 mls @ 100 mls/hr IVPB Q8H-IV [facility]; Protocol Last Admin: 12/28/19 17:12 Dose: 100 mls/hr Documented by: Insulin Aspart (Novolog Vial Sliding Scale -) 1 vial SQ ACHS [facility]; Protocol Last Admin: 12/28/19 16:32 Dose: 1 unit Documented by: Levothyroxine Sodium (Synthroid -) 25 mcg PO ACBK [facility] Last Admin: 12/28/19 06:25 Dose: 25 mcg Documented by: Losartan Potassium (Cozaar -) 50 mg PO DAILY [facility] Last Admin: 12/28/19 09:05 Dose: 50 mg Documented by: Ondansetron HCl (Zofran Injection) 4 mg IVPUSH Q6H PRN PRN Reason: NAUSEA Fluticasone/Salmeterol (Advair 100mcg/50mcg -) 1 puff IH BID [facility] Last Admin: 12/28/19 09:05 Dose: 1 puff Documented by: Sertraline HCl (Zoloft -) 25 mg PO HS [facility] Last Admin: 12/27/19 21:15 Dose: 25 mg Documented by: Zinc Oxide/Panthenol/Vitamin E (Balmex Cream -) 1 applic TP ASDIR PRN PRN Reason: HYGEINE - Objective Vital Signs: Vital Signs Temperature 99 F 12/28/19 16:30 Pulse Rate 71 12/28/19 16:30 Respiratory Rate 20 12/28/19 16:30 Blood Pressure 136/74 12/28/19 16:30 O2 Sat by Pulse Oximetry (%) 99 12/28/19 16:00 Constitutional: Yes: No Distress Cardiovascular: Yes: Regular Rate and Rhythm Respiratory: Yes: Regular Gastrointestinal: Yes: Normal Bowel Sounds, Soft Genitourinary: Yes: WNL Integumentary: Yes: WNL Neurological: Yes: Alert Labs: CBC, BMP 12/28/19 06:58 12/28/19 06:58 INR, PTT INR 1.05 (0.83-1.09) 12/19/19 13:20 - ....Imaging Ultrasound: Report Reviewed Problem List - Problems (1) Acute cholecystitis Code(s): K81.0 - ACUTE CHOLECYSTITIS (2) Sepsis Code(s): A41.9 - SEPSIS, UNSPECIFIED ORGANISM Qualifiers: Sepsis type: sepsis due to unspecified organism Sepsis acute organ dysfunction status: without acute organ dysfunction Qualified Code(s): A41.9 - Sepsis, unspecified organism (3) UTI (urinary tract infection) Code(s): N39.0 - URINARY TRACT INFECTION, SITE NOT SPECIFIED Qualifiers: Urinary tract infection type: acute cystitis Hematuria presence: without hematuria Qualified Code(s): N30.00 - Acute cystitis without hematuria (4) Anemia Code(s): D64.9 - ANEMIA, UNSPECIFIED Qualifiers: Anemia type: iron deficiency Iron deficiency anemia type: chronic blood loss Qualified Code(s): D50.0 - Iron deficiency anemia secondary to blood loss (chronic) (5) S/P mitral valve replacement Code(s): Z95.2 - PRESENCE OF PROSTHETIC HEART VALVE (6) Spondylolisthesis at L5-S1 level Code(s): M43.17 - SPONDYLOLISTHESIS, [place] REGION (7) T2DM (type 2 diabetes mellitus) Code(s): E11.9 - TYPE 2 DIABETES MELLITUS WITHOUT COMPLICATIONS Qualifiers: Diabetes mellitus detention insulin use: without detention use (8) CAD (coronary artery disease) Code(s): I25.10 - ATHSCL HEART DISEASE OF [place] CORONARY ARTERY W/O ANG PCTRS Qualifiers: Coronary Disease-Associated Artery/Lesion type: [place] artery [place] vs. transplanted heart: [place] heart Associated angina: without angina Qualified Code(s): I25.10 - Atherosclerotic heart disease of [place] coronary artery without angina pectoris (9) COPD (chronic obstructive pulmonary disease) Code(s): J44.9 - CHRONIC OBSTRUCTIVE PULMONARY DISEASE, UNSPECIFIED Qualifiers: COPD type: unspecified COPD Qualified Code(s): J44.9 - Chronic obstructive pulmonary disease, unspecified (10) S/P TAVR (transcatheter aortic valve replacement) Code(s): Z95.2 - PRESENCE OF PROSTHETIC HEART VALVE Assessment/Plan E. coli UTI/Bacteremia Sepsis Acute cholecystitis -- feeling better -- will switch to Keflex and Flagyl and monitor temps (Tmax 99.3F) -- latest blood cultures neg -- conservative management of cholecystitis per Surgery -- monitor vitals
[2019-12-28] MEDS: SERTRALINE HCL 25 MG TABLET (FP) PO SCH (21:02)
[2019-12-28] MEDS: metroNIDAZOLE 250 MG TABLET PO SCH (21:02)
[2019-12-28] MEDS: CEPHALEXIN MONOHYDRATE 500 MG CAPSULE (UD) PO SCH (23:34)
[2019-12-29] MEDS: INSULIN SLIDING SCALE (NOVOLOG) 1 VIAL SQ SCH ×2 (05:59→12:04)
[2019-12-29] MEDS: LEVOTHYROXINE NA 25 MCG TABLET (FP) PO SCH (05:59)
[2019-12-29] MEDS: CEPHALEXIN MONOHYDRATE 500 MG CAPSULE (UD) PO SCH ×2 (05:59→12:06)
[2019-12-29] MEDS: metroNIDAZOLE 250 MG TABLET PO SCH ×2 (05:59→13:06)
[2019-12-29] MEDS: CARVEDILOL 3.125 MG TABLET (FP) PO SCH (09:42)
[2019-12-29] MEDS: ENOXAPARIN NA (PORCINE) 40 MG/0.4 ML DISP.SYRIN SQ SCH (09:42)
[2019-12-29] MEDS: FAMOTIDINE 20 MG TABLET PO SCH (09:42)
[2019-12-29] MEDS: FLUTICASONE/SALMETEROL 100 MCG/50 MCG DISKUS IH SCH (09:42)
[2019-12-29] MEDS: LOSARTAN POTASSIUM 50 MG TABLET (FP) PO SCH (09:43)
[2019-12-29] MEDS: FUROSEMIDE 20 MG TABLET (FP) PO SCH (09:43)
[2019-12-29 10:35] VITALS: BP 113/60; PULSE 71; TEMP 98.8
--- NOTE | 2019-12-29 12:55 | PN ---
Progress Note (short form) - Note Progress Note: PULMONARY Some nausea overnight but no shortness of breath. No fevers or chills. Vital Signs Period Temp Pulse Resp BP Sys/Jose Pulse Ox Last 24 Hr 98.3 F-99.3 F 68-79 18-20 113-136/57-74 97-99 Gen: NAD at rest Heart: RRR, +systolic murmur Lung: decreased breath sounds at the bases Abd: soft, nontender Ext: no edema CBC, BMP 12/28/19 06:58 12/28/19 06:58 Active Medications Acetaminophen (Tylenol -) 650 mg PO Q4H PRN PRN Reason: PAIN LEVEL 4 - 6 Last Admin: 12/27/19 17:33 Dose: 650 mg Documented by: Albuterol Sulfate (Ventolin Hfa Inhaler -) 2 puff IH Q4H PRN PRN Reason: SHORT OF BREATH/WHEEZING Last Admin: 12/23/19 12:36 Dose: 2 puff Documented by: Carvedilol (Coreg -) 3.125 mg PO BID [facility] Last Admin: 12/29/19 09:42 Dose: 3.125 mg Documented by: Cephalexin HCl (Keflex -) 500 mg PO Q6HPO [facility] Last Admin: 12/29/19 12:06 Dose: 500 mg Documented by: Enoxaparin Sodium (Lovenox -) 40 mg SQ DAILY [facility] Last Admin: 12/29/19 09:42 Dose: 40 mg Documented by: Famotidine (Pepcid -) 20 mg PO BID [facility] Last Admin: 12/29/19 09:42 Dose: 20 mg Documented by: Furosemide (Lasix -) 20 mg PO DAILY [facility] Last Admin: 12/29/19 09:43 Dose: 20 mg Documented by: Insulin Aspart (Novolog Vial Sliding Scale -) 1 vial SQ [facility]; Protocol Last Admin: 12/29/19 12:04 Dose: 1 unit Documented by: Levothyroxine Sodium (Synthroid -) 25 mcg PO ACBK [facility] Last Admin: 12/29/19 05:59 Dose: 25 mcg Documented by: Losartan Potassium (Cozaar -) 50 mg PO DAILY [facility] Last Admin: 12/29/19 09:43 Dose: 50 mg Documented by: Metronidazole (Flagyl -) 500 mg PO TID [facility] Last Admin: 12/29/19 05:59 Dose: 500 mg Documented by: Ondansetron HCl (Zofran Injection) 4 mg IVPUSH Q6H PRN PRN Reason: NAUSEA Fluticasone/Salmeterol (Advair 100mcg/50mcg -) 1 puff IH BID [facility] Last Admin: 12/29/19 09:42 Dose: 1 puff Documented by: Sertraline HCl (Zoloft -) 25 mg PO HS [facility] Last Admin: 12/28/19 21:02 Dose: 25 mg Documented by: Zinc Oxide/Panthenol/Vitamin E (Balmex Cream -) 1 applic TP ASDIR PRN PRN Reason: HYGEINE A/P Acute on Chronic Diastolic Heart Failure UTI Aortic Stenosis s/p TAVR h/o bio MVR HTN DM Hyperlipidemia - continue lasix as needed - O2 to keep SpO2 >90% - taper off nasal cannula - inhaled bronchodilators - DVT prophylaxis Problem List - Problems (1) Acute on chronic diastolic (congestive) heart failure Code(s): I50.33 - ACUTE ON CHRONIC DIASTOLIC (CONGESTIVE) HEART FAILURE
--- NOTE | 2019-12-29 12:58 | DS ---
Physical Exam: SUBJECTIVE: Patient seen and examined OBJECTIVE: Vital Signs Period Temp Pulse Resp BP Sys/Jose Pulse Ox Last 24 Hr 98.3 F-99.3 F 68-79 18-20 113-136/57-74 97-99 PHYSICAL EXAM GENERAL: The patient is awake, alert, and fully oriented, in no acute distress. HEAD: Normal with no signs of trauma. EYES: PERRL, extraocular movements intact, sclera anicteric, conjunctiva clear. ENT: Ears normal, nares patent, oropharynx clear without exudates, moist mucous membranes. NECK: Trachea midline, full range of motion, supple. LUNGS: Breath sounds equal, clear to auscultation bilaterally, no wheezes, no crackles, no accessory muscle use. HEART: Regular rate and rhythm, S1, S2 without murmur, rub or gallop. ABDOMEN: Soft, nontender, nondistended, normoactive bowel sounds, no guarding, no rebound, no hepatosplenomegaly, no masses. EXTREMITIES: 2+ pulses, warm, well-perfused, no edema. NEUROLOGICAL: Cranial nerves II through XII grossly intact. Normal speech, gait not observed. PSYCH: Normal mood, normal affect. SKIN: Warm, dry, normal turgor, no rashes or lesions noted. LABS Laboratory Results - last 24 hr 12/26/19 12/28/19 12/28/19 16:15 16:26 21:09 POC Glucometer 151 218 COVID-19 ([facility]) Not detected 12/29/19 12/29/19 05:58 11:20 POC Glucometer 146 173 COVID-19 ([facility]) HOSPITAL COURSE: Date of Admission:12/19/19 Date of Discharge: 12/29/19 Minutes to complete discharge: 40 Discharge Summary Problems reviewed: Yes Reason For Visit: UTI SEPSIS ACUTE CHOLECYSTITIS Current Active Problems Acute cholecystitis (Acute) Preop cardiovascular exam (Acute) Sepsis (Acute) UTI (urinary tract infection) (Acute) Condition: Stable - Instructions Diet, Activity, Other Instructions: Your visit You were admitted to the hospital because you were not feeling well and you had belly pain. You were found to have a urinary tract infection and an infection in your gallbladder. You were given IV antibiotics for the infection. You were also evaluated by surgery and recommended no immediate surgical intervention at this time. It is recommended that you have an elective surgery in 6-8 weeks to remove your gallbladder, and it is advised to be done in a tertiary care hospital as it is considered a high risk surgery. You were also found to have low oxygen levels. CAT scan of your lungs was done. You will discharged with oxygen via nasal cannula which you will continue to use at the nursing facility. You will need to re-evaluated prior to discharge from [facility] if you still need to continue using the oxygen. Medications Please take the following medications as prescribed: 1. Cefpodoxime 200mg twice a day for 7 days. 2. Flagyl 500mg three times a day for 7 days. Please continue your other home medications as prescribed. Follow up Please follow up with your primary care doctor in 1-2 weeks. Please follow up with surgery in 4 weeks for possible elective surgery to take out your gallbladder. Additional info Please call 911 or go to the ED if with any worsening fevers, chills, headache, dizziness, chest pain, shortness of breath, belly pain, diarrhea or any new concerns noted. Referrals: Jean Escobar MD [Staff Physician] - Jorje Tom MD [Primary Care Provider] - Disposition: [facility]IOR [facility]ARE FACILITY - Home Medications Comprehensive Discharge Medication List: Ambulatory Orders Sitagliptin Phosphate [Januvia] 100 mg PO DAILY 12/18/14 Atorvastatin Ca [Lipitor] 10 mg PO HS #1 tablet 12/22/14 Cholecalciferol (Vitamin D3) [Vitamin D3 -] 1,000 unit PO DAILY 03/10/16 Latanoprost 0.005% Eye Drops [Xalatan 0.005% Eye Drops -] 1 drop OU HS 07/25/16 Ascorbic Acid [Vitamin C] 500 mg PO DAILY 05/10/17 Levothyroxine [Synthroid -] 0.025 mcg PO ACBK 05/10/17 Sertraline HCl [Zoloft] 25 mg PO HS 05/10/17 Calcium 250Mg/Vit-D 125 Units [Oscal 250 mg+D -] 1 combo PO DAILY 10/24/17 Ferrous Sulfate 325 mg PO DAILY 10/24/17 Metformin HCl [Glucophage] 500 mg PO BID 10/24/17 [place]-3/Dha/Epa/Fish Oil [Fish Oil [place] EC 1,200 mg] 1 each PO DAILY 10/24/17 Albuterol Sulfate 0.5% [Ventolin 0.5% Nebulizing Soln. -] 5 mg IH Q6H PRN 04/03/18 Aspirin [Aspirin EC] 81 mg PO DAILY 04/03/18 Fluticasone/Vilanterol [Breo Ellipta 100-25 Mcg INH] 1 mcg IH DAILY 04/03/18 Lactobacillus Acidophilus [Bacid -] 1 tab PO DAILY tab 04/07/18 Famotidine [Pepcid -] 20 mg PO BID 12/20/19 Losartan Potassium [Cozaar -] 50 mg PO DAILY 12/20/19 Acetaminophen [Tylenol .Regular Strength -] 650 mg PO Q4H PRN tablet 12/25/19 Carvedilol [Coreg -] 3.125 mg PO BID tablet 12/25/19 Cefpodoxime Proxetil [Vantin -] 200 mg PO Q12H #14 tablet 12/25/19 Docusate Sodium [Colace -] 100 mg PO Q12H PRN capsule 12/25/19 - Discharge Referral Referred to [facility] Med [facility].C.: No ATTENDING PHYSICIAN STATEMENT I saw and evaluated the patient. I reviewed the resident's note and discussed the case with the resident. I agree with the resident's findings and plan as documented. SUBJECTIVE: OBJECTIVE: ASSESSMENT AND PLAN:
--- NOTE | 2019-12-29 14:19 | DS ---
Physical Exam: SUBJECTIVE: Patient seen and examined OBJECTIVE: Vital Signs Period Temp Pulse Resp BP Sys/Jose Pulse Ox Last 24 Hr 98.3 F-99.2 F 68-79 18-20 113-136/57-74 97-99 PHYSICAL EXAM GENERAL: The patient is awake, alert, and fully oriented, in no acute distress. HEAD: Normal with no signs of trauma. EYES: PERRL, extraocular movements intact, sclera anicteric, conjunctiva clear. ENT: Ears normal, nares patent, oropharynx clear without exudates, moist mucous membranes. NECK: Trachea midline, full range of motion, supple. LUNGS: Breath sounds equal, clear to auscultation bilaterally, no wheezes, no crackles, no accessory muscle use. HEART: Regular rate and rhythm, S1, S2 without murmur, rub or gallop. ABDOMEN: Soft, nontender, nondistended, normoactive bowel sounds, no guarding, no rebound, no hepatosplenomegaly, no masses. EXTREMITIES: 2+ pulses, warm, well-perfused, no edema. NEUROLOGICAL: Cranial nerves II through XII grossly intact. Normal speech, gait not observed. PSYCH: Normal mood, normal affect. SKIN: Warm, dry, normal turgor, no rashes or lesions noted. LABS Laboratory Results - last 24 hr 12/26/19 12/28/19 12/28/19 16:15 16:26 21:09 POC Glucometer 151 218 COVID-19 ([facility]) Not detected 12/29/19 12/29/19 05:58 11:20 POC Glucometer 146 173 COVID-19 ([facility]) HOSPITAL COURSE: Date of Admission:12/19/19 Date of Discharge: 12/29/19 Discharge Summary Problems reviewed: Yes Reason For Visit: UTI SEPSIS ACUTE CHOLECYSTITIS Current Active Problems Acute cholecystitis (Acute) Preop cardiovascular exam (Acute) Sepsis (Acute) UTI (urinary tract infection) (Acute) Condition: Stable - Instructions Diet, Activity, Other Instructions: Your visit You were admitted to the hospital because you were not feeling well and you had belly pain. You were found to have a urinary tract infection and an infection in your gallbladder. You were given IV antibiotics for the infection. You were also evaluated by surgery and recommended no immediate surgical intervention at this time. It is recommended that you have an elective surgery in 6-8 weeks to remove your gallbladder, and it is advised to be done in a tertiary care hospital as it is considered a high risk surgery. You were also found to have low oxygen levels. CAT scan of your lungs was done. You will discharged with oxygen via nasal cannula which you will continue to use at the nursing facility.You are currently requiring 1 L of oxygen. You will need to re-evaluated prior to discharge from [facility] if you still need to continue using the oxygen. Medications Please take the following medications as prescribed: 1. Keflex 500mg twice a day for 4 days. 2. Flagyl 500mg three times a day for 4 days. 3. Lasix 20 mg Daily. Please repeat a BMP (blood test) in 1 week to assess your kidney function and potassium level as this medication may affect these. Please continue your other home medications as prescribed. Follow up Please follow up with your primary care doctor in 1-2 weeks. Please follow up with surgery in 4 weeks for possible elective surgery to take out your gallbladder. Additional info Please call 911 or go to the ED if with any worsening fevers, chills, headache, dizziness, chest pain, shortness of breath, belly pain, diarrhea or any new concerns noted. Referrals: Jean Escobar MD [Staff Physician] - 2 Weeks Jorje Tom MD [Primary Care Provider] - 1 Week Yasir Hayden MD [Staff Physician] - 1 Week Disposition: HALFWAY FACILITY - Home Medications Comprehensive Discharge Medication List: Ambulatory Orders Sitagliptin Phosphate [Januvia] 100 mg PO DAILY 12/18/14 Atorvastatin Ca [Lipitor] 10 mg PO HS #1 tablet 12/22/14 Cholecalciferol (Vitamin D3) [Vitamin D3 -] 1,000 unit PO DAILY 03/10/16 Latanoprost 0.005% Eye Drops [Xalatan 0.005% Eye Drops -] 1 drop OU HS 07/25/16 Ascorbic Acid [Vitamin C] 500 mg PO DAILY 05/10/17 Levothyroxine [Synthroid -] 0.025 mcg PO ACBK 05/10/17 Sertraline HCl [Zoloft] 25 mg PO HS 05/10/17 Calcium 250Mg/Vit-D 125 Units [Oscal 250 mg+D -] 1 combo PO DAILY 10/24/17 Ferrous Sulfate 325 mg PO DAILY 10/24/17 Metformin HCl [Glucophage] 500 mg PO BID 10/24/17 [place]-3/Dha/Epa/Fish Oil [Fish Oil [place]-3 EC 1,200 mg] 1 each PO DAILY 10/24/17 Albuterol Sulfate 0.5% [Ventolin 0.5% Nebulizing Soln. -] 5 mg IH Q6H PRN 04/03/18 Aspirin [Aspirin EC] 81 mg PO DAILY 04/03/18 Fluticasone/Vilanterol [Breo Ellipta 100-25 Mcg INH] 1 mcg IH DAILY 04/03/18 Lactobacillus Acidophilus [Bacid -] 1 tab PO DAILY tab 04/07/18 Famotidine [Pepcid -] 20 mg PO BID 12/20/19 Losartan Potassium [Cozaar -] 50 mg PO DAILY 12/20/19 Acetaminophen [Tylenol .Regular Strength -] 650 mg PO Q4H PRN tablet 12/25/19 Carvedilol [Coreg -] 3.125 mg PO BID tablet 12/25/19 Docusate Sodium [Colace -] 100 mg PO Q12H PRN capsule 12/25/19 Cephalexin [Keflex] 500 mg PO BID #8 capsule 12/29/19 Furosemide 20 mg PO DAILY #30 tablet 12/29/19 Miscellaneous Medical Supply [Outpatient Order] 1 each ASDIR #1 misc 12/29/19 metroNIDAZOLE [Flagyl -] 500 mg PO TID #12 tablet 12/29/19 - Discharge Referral Referred to [facility] No ATTENDING PHYSICIAN STATEMENT I saw and evaluated the patient. I reviewed the resident's note and discussed the case with the resident. I agree with the resident's findings and plan as documented. SUBJECTIVE: OBJECTIVE: ASSESSMENT AND PLAN:
--- NOTE | 2019-12-29 14:30 | PN ---
Progress Note, Physician Chief Complaint: Events noted Not in distress Episode of emesis History of Present Illness: Patient was seen and examined. Awake and alert. Chart was reviewed Denies chest pain, SOB or palpitations - Current Medication List Current Medications: Active Medications Acetaminophen (Tylenol -) 650 mg PO Q4H PRN PRN Reason: PAIN LEVEL 4 - 6 Last Admin: 12/27/19 17:33 Dose: 650 mg Documented by: Albuterol Sulfate (Ventolin Hfa Inhaler -) 2 puff IH Q4H PRN PRN Reason: SHORT OF BREATH/WHEEZING Last Admin: 12/23/19 12:36 Dose: 2 puff Documented by: Carvedilol (Coreg -) 3.125 mg PO BID [facility] Last Admin: 12/29/19 09:42 Dose: 3.125 mg Documented by: Cephalexin HCl (Keflex -) 500 mg PO Q6HPO [facility] Last Admin: 12/29/19 12:06 Dose: 500 mg Documented by: Enoxaparin Sodium (Lovenox -) 40 mg SQ DAILY [facility] Last Admin: 12/29/19 09:42 Dose: 40 mg Documented by: Famotidine (Pepcid -) 20 mg PO BID [facility] Last Admin: 12/29/19 09:42 Dose: 20 mg Documented by: Furosemide (Lasix -) 20 mg PO DAILY [facility] Last Admin: 12/29/19 09:43 Dose: 20 mg Documented by: Insulin Aspart (Novolog Vial Sliding Scale -) 1 vial SQ [facility]; Protocol Last Admin: 12/29/19 12:04 Dose: 1 unit Documented by: Levothyroxine Sodium (Synthroid -) 25 mcg PO ACBK [facility] Last Admin: 12/29/19 05:59 Dose: 25 mcg Documented by: Losartan Potassium (Cozaar -) 50 mg PO DAILY [facility] Last Admin: 12/29/19 09:43 Dose: 50 mg Documented by: Metronidazole (Flagyl -) 500 mg PO TID [facility] Last Admin: 12/29/19 13:06 Dose: 500 mg Documented by: Ondansetron HCl (Zofran Injection) 4 mg IVPUSH Q6H PRN PRN Reason: NAUSEA Fluticasone/Salmeterol (Advair 100mcg/50mcg -) 1 puff IH BID [facility] Last Admin: 12/29/19 09:42 Dose: 1 puff Documented by: Sertraline HCl (Zoloft -) 25 mg PO HS [facility] Last Admin: 12/28/19 21:02 Dose: 25 mg Documented by: Zinc Oxide/Panthenol/Vitamin E (Balmex Cream -) 1 applic TP ASDIR PRN PRN Reason: HYGEINE - Objective Vital Signs: Vital Signs Temperature 98.8 F 12/29/19 10:34 Pulse Rate 71 12/29/19 10:34 Respiratory Rate 18 12/29/19 10:34 Blood Pressure 113/60 12/29/19 10:34 O2 Sat by Pulse Oximetry (%) 97 12/29/19 08:00 Neck: Yes: Supple Cardiovascular: Yes: Regular Rate and Rhythm, S1, S2 Respiratory: Yes: CTA Bilaterally Gastrointestinal: Yes: Normal Bowel Sounds, Soft. No: Tenderness Edema: No Labs: CBC, BMP 12/28/19 06:58 12/28/19 06:58 Problem List - Problems (1) UTI (urinary tract infection) Code(s): N39.0 - URINARY TRACT INFECTION, SITE NOT SPECIFIED Qualifiers: Urinary tract infection type: acute cystitis Hematuria presence: without hematuria Qualified Code(s): N30.00 - Acute cystitis without hematuria (2) S/P mitral valve replacement Code(s): Z95.2 - PRESENCE OF PROSTHETIC HEART VALVE (3) T2DM (type 2 diabetes mellitus) Code(s): E11.9 - TYPE 2 DIABETES MELLITUS WITHOUT COMPLICATIONS Qualifiers: Diabetes mellitus chcf insulin use: without chcf use (4) CAD (coronary artery disease) Code(s): I25.10 - ATHSCL HEART DISEASE OF [place] CORONARY ARTERY W/O ANG PCTRS Qualifiers: Coronary Disease-Associated Artery/Lesion type: [place] artery [place] vs. transplanted heart: [place] heart Associated angina: without angina Qualified Code(s): I25.10 - Atherosclerotic heart disease of [place] coronary artery without angina pectoris (5) COPD (chronic obstructive pulmonary disease) Code(s): J44.9 - CHRONIC OBSTRUCTIVE PULMONARY DISEASE, UNSPECIFIED Qualifiers: COPD type: unspecified COPD Qualified Code(s): J44.9 - Chronic obstructive pulmonary disease, unspecified (6) HTN (hypertension) Code(s): I10 - ESSENTIAL (PRIMARY) HYPERTENSION Qualifiers: Hypertension type: essential hypertension Qualified Code(s): I10 - Essential (primary) hypertension (7) Hypothyroid Code(s): E03.9 - HYPOTHYROIDISM, UNSPECIFIED Qualifiers: Hypothyroidism type: unspecified Qualified Code(s): E03.9 - Hypothyroidism, unspecified (8) S/P TAVR (transcatheter aortic valve replacement) Code(s): Z95.2 - PRESENCE OF PROSTHETIC HEART VALVE Assessment/Plan 1. UTI 2. Aortic valve disease s/p TAVR 3. MVR (bioprosthesis) 4. HTN 5. Hypercholesterolemia 6. Type 2 DM 7. Hypothyroidism 8. History of vascular ectasia PLAN: 1. Continue antibiotics 2. Losartan 50 mg QD and Carvedilol 3.125 mg BID 3. Diuretics 4. DVT prophylaxis 5. SNF placement Abiodun Cabral MD
--- NOTE | 2019-12-29 17:33 | PN ---
Teaching Attending Note Name of Resident: Prieto Parr ATTENDING PHYSICIAN STATEMENT I saw and evaluated the patient. I reviewed the resident's note and discussed the case with the resident. I agree with the resident's findings and plan as documented. SUBJECTIVE: Feeling well. No further abdominal pain/diarrhea. No fever/chills/nausea/vomiting. OBJECTIVE: Afebrile, Hemodynamically Stable. SpO2 97-99% on 1L Last Vital Signs Temp Pulse Resp BP Pulse Ox 98.8 F 71 18 113/60 97 12/29/19 10:34 12/29/19 10:34 12/29/19 10:34 12/29/19 10:34 12/29/19 16:00 Heart - S1, S2, SM Lungs - decreased air entry at bases. Abdomen - Soft, non-tender. Bowel Sounds normal. Extremities - no edema, no calf tenderness Laboratory Results - last 24 hr 12/26/19 12/28/19 12/29/19 16:15 21:09 05:58 POC Glucometer 218 146 COVID-19 ([facility]) Not detected 12/29/19 11:20 POC Glucometer 173 COVID-19 ([facility]) Discharge Medications Medication Instructions Recorded Sitagliptin Phosphate [Januvia] 100 mg PO DAILY 12/18/14 Atorvastatin Ca [Lipitor] 10 mg PO HS #1 tablet 12/22/14 Cholecalciferol (Vitamin D3) 1,000 unit PO DAILY 03/10/16 [Vitamin D3 -] Latanoprost 0.005% Eye Drops 1 drop OU HS 07/25/16 [Xalatan 0.005% Eye Drops -] Ascorbic Acid [Vitamin C] 500 mg PO DAILY 05/10/17 Levothyroxine [Synthroid -] 0.025 mcg PO ACBK 05/10/17 Sertraline HCl [Zoloft] 25 mg PO HS 05/10/17 Calcium 250Mg/Vit-D 125 Units 1 combo PO DAILY 10/24/17 [Oscal 250 mg+D -] Ferrous Sulfate 325 mg PO DAILY 10/24/17 Metformin HCl [Glucophage] 500 mg PO BID 10/24/17 [place]-3/Dha/Epa/Fish Oil [Fish Oil 1 each PO DAILY 10/24/17 [place]-3 EC 1,200 mg] Albuterol Sulfate 0.5% [Ventolin 5 mg IH Q6H PRN 04/03/18 0.5% Nebulizing Soln. -] Aspirin [Aspirin EC] 81 mg PO DAILY 04/03/18 Fluticasone/Vilanterol [Breo 1 mcg IH DAILY 04/03/18 Ellipta 100-25 Mcg INH] Lactobacillus Acidophilus [Bacid -] 1 tab PO DAILY tab 04/07/18 Famotidine [Pepcid -] 20 mg PO BID 12/20/19 Losartan Potassium [Cozaar -] 50 mg PO DAILY 12/20/19 Acetaminophen [Tylenol .Regular 650 mg PO Q4H PRN tablet 12/25/19 Strength -] Carvedilol [Coreg -] 3.125 mg PO BID tablet 12/25/19 Docusate Sodium [Colace -] 100 mg PO Q12H PRN capsule 12/25/19 Cephalexin [Keflex] 500 mg PO BID #8 capsule 12/29/19 Furosemide 20 mg PO DAILY #30 tablet 12/29/19 Miscellaneous Medical Supply 1 each ASDIR #1 misc 12/29/19 [Outpatient Order] metroNIDAZOLE [Flagyl -] 500 mg PO TID #12 tablet 12/29/19 ASSESSMENT AND PLAN: 84 year old female with a history of Chronic Diastolic CHF, DM 2, HTN, Hx GI bleed secondary to bowel vascular ectasias, HLD, status post TAVR, bioprosthetic MVR, Asthma, presented to ED with complaints of diffuse abdominal pain, found to have UTI with Bacteremia and acute cholecystitis. 1. Sepsis secondary to Acute Cholecystitis/Ecoli UTI with Bacteremia - sepsis resolved. HIDA scan shows patent cystic duct. Evaluated by Surgery and recommended for conservative management due to high risk of surgical intervention - resolved with non-surgical care. Urine/Blood Cx positive for Ecoli. Repeat Blood Cx - no growth. Improved with Abx - Completed 10 Days IV Zosyn - for discharge to SNF on Keflex and Flagyl as per ID for an additional 4 days to complete 2 weeks Abx therapy. 2. Acute Hypoxic Respiratory Failure requiring supplemental O2 - likely sec to Acute on Chronic Diastolic CHF CTA Chest - no PE. Small to moderate bilateral pleural effusions and vascular congestion. s/p closure of left atrial appendage, s/p AV and MV replacements. Not in respiratry distress. SpO2 97-99% on 1L - for slow weaning off O2. Will continue oral Lasix 20mg daily as per Cardio. 3. Diarrhea ? Abx related - resolving Cdiff negative. Further Flagyl held. 4. DM 2 - Januvia/Metformin to resume on discharge. 5. s/p TAVR, Bioprosthetic MVR Cardiology evaluated - Continue losartan and carvedilol. 6. HTN - continue Coreg, Losartan 7. HLD - continue Statin 8. Hypothyrosidism - TSH 2.4. Continue Levothyroxine. 9. Depression/Anxiety - continue Sertraline. DVT Px - Lovenox SQ Dispo - [facility], repeat COVID PCR negative.
== END 2019-12-29 17:03 | DRG 871 ==
LOC: JER 12:35 → SUPCPDRO 12:35 → JERBED 16:48 → J8W 12-20 11:20
PROVIDERS: ADMIT Internal Medicine
DX: A41.51 Sepsis due to Escherichia coli [E. coli] (principal); J96.01 Acute respiratory failure with hypoxia; I50.33 Acute on chronic diastolic (congestive) heart failure; N39.0 Urinary tract infection, site not specified; K81.0 Acute cholecystitis; E78.5 Hyperlipidemia, unspecified; G57.30 Lesion of lateral popliteal nerve, unspecified lower limb; M43.17 Spondylolisthesis, lumbosacral region; I34.0 Nonrheumatic mitral (valve) insufficiency; E03.9 Hypothyroidism, unspecified; I27.20 Pulmonary hypertension, unspecified; G47.33 Obstructive sleep apnea (adult) (pediatric); K21.9 Gastro-esophageal reflux disease without esophagitis; J45.909 Unspecified asthma, uncomplicated; I25.10 Atherosclerotic heart disease of native coronary artery without angina pectoris; K57.90 Diverticulosis of intestine, part unspecified, without perforation or abscess without bleeding; K76.0 Fatty (change of) liver, not elsewhere classified; B96.20 Unspecified Escherichia coli [E. coli] as the cause of diseases classified elsewhere; E11.9 Type 2 diabetes mellitus without complications; I11.0 Hypertensive heart disease with heart failure; R19.7 Diarrhea, unspecified; K44.9 Diaphragmatic hernia without obstruction or gangrene; E11.319 Type 2 diabetes mellitus with unspecified diabetic retinopathy without macular edema; H35.30 Unspecified macular degeneration; F41.8 Other specified anxiety disorders; Z95.2 Presence of prosthetic heart valve
CPT/HCPCS: 36415; 71045-TC-FY; 71275-TC; 76705-TC; 78226-TC; 80048; 80053; 81003; 82728; 82803; 82962; 83605; 83615; 83735; 84100; 84436; 84443; 84484; 85025; 85027; 85610; 85730; 86140; 87040; 87086; 87186; 87324; 87449; 93005; 93010; 93306-TC; 94640; 97116-GP; 99285-25; A9537; J0131; Q9967; U0003

== ENCOUNTER 2021-02-10 14:17 | Inpatient (IN) | payer OTHER ==
[2021-02-10] MEDS ORDERED: SODIUM CHLORIDE 0.9% 500 ML INFUS.BAG IV ONE (16:37)
[2021-02-10 16:52] LABS: BASO % 0.7 % (0-2.0); EOS % 0.9 % (0-4.5); HEMATOCRIT 34.9 % (32.4-45.2); HEMOGLOBIN 11.3 GM/dL (10.7-15.3); LYMPH % 18.2 % (8-40); MCH 27.4 pg (25.7-33.7); MCHC 32.3 g/dl (32.0-36.0); MEAN PLT VOLUME 8.8 fl (7.5-11.1); MONO % 12.6 % (3.8-10.2); NEUT % 67.6 % (42.8-82.8); PLATELET COUNT 136 10^3/uL (134-434); RBC 4.11 M/mm3 (3.60-5.2)
[2021-02-10 17:19] LABS: CALCIUM 9.3 mg/dL (8.5-10.1)
[2021-02-10 17:20] LABS: BLOOD UREA NITROGEN 24.5 mg/dL (7-18)
[2021-02-10 17:22] LABS: CREATININE 1.5 mg/dL (0.55-1.3)
[2021-02-10 17:24] LABS: BILIRUBIN,TOTAL 0.7 mg/dL (0.2-1); TOT PROT 6.2 g/dl (6.4-8.2)
[2021-02-10 17:24] LABS: LACTIC ACID 2.7 mmol/L (0.4-2.0)
[2021-02-10 18:03] LABS: EPI CELLS 19 /uL (0-25.1); HYALINE CASTS 7 /uL (0-3.1); URINE APPEARANCE CLOUDY; URINE BACTERIA >9,000 /uL (0-1359); URINE BILIRUBIN NEGATIVE (NEGATIVE); URINE COLOR DK YELLOW; URINE GLUCOSE (UA) NEGATIVE (NEGATIVE); URINE KETONE TRACE (NEGATIVE); URINE LEUK ESTERASE 1+ (NEGATIVE); URINE NITRITE POSITIVE (NEGATIVE); URINE PROTEIN TRACE (NEGATIVE); URINE WBC 161 /uL (0-25.8)
[2021-02-10 18:30] LABS: URINE RBC 69.3 /uL (0-23.9); YEAST NONE SEEN (NEGATIVE)
[2021-02-10] MEDS ORDERED: CEFTRIAXONE 1 GM in DEXTROSE 5%-WATER - 50 ML IVPB ONE (18:55)
[2021-02-10] MEDS ORDERED: CEFTRIAXONE 1 GM/50 ML BAG ONE (19:32)
[2021-02-11 08:12] LABS: BASO % 0.7 % (0-2.0); EOS % 1.7 % (0-4.5); HEMATOCRIT 34.3 % (32.4-45.2); HEMOGLOBIN 11.1 GM/dL (10.7-15.3); LYMPH % 21.9 % (8-40); MCH 27.4 pg (25.7-33.7); MCHC 32.4 g/dl (32.0-36.0); MEAN CELL VOLUME 84.6 fl (80-96); MEAN PLT VOLUME 9.1 fl (7.5-11.1); MONO % 11.6 % (3.8-10.2); NEUT % 64.1 % (42.8-82.8); PLATELET COUNT 144 10^3/uL (134-434); RBC 4.06 M/mm3 (3.60-5.2); RDW 16.3 % (11.6-15.6); WHITE BLOOD COUNT 6.9 K/mm3 (4.0-10.0)
[2021-02-11 08:33] LABS: CALCIUM 8.9 mg/dL (8.5-10.1)
[2021-02-11 08:34] LABS: ALBUMIN 2.7 g/dl (3.4-5.0); BLOOD UREA NITROGEN 20.3 mg/dL (7-18); MAGNESIUM 1.7 mg/dL (1.8-2.4)
[2021-02-11 08:37] LABS: CREATININE 1.1 mg/dL (0.55-1.3)
[2021-02-11 08:39] LABS: BILIRUBIN,TOTAL 0.8 mg/dL (0.2-1); TOT PROT 5.8 g/dl (6.4-8.2)
[2021-02-11] MEDS ORDERED: cefTRIAXone SODIUM 1 GM VIAL ONE (09:25)
[2021-02-11] MEDS ORDERED: DEXTROSE 5%-WATER - 50 ML IVPB ONE (09:26)
[2021-02-11] MEDS: CARVEDILOL 3.125 MG TABLET (FP) PO SCH ×2 (10:05→22:21)
[2021-02-11] MEDS: SERTRALINE HCL 25 MG TABLET (FP) PO SCH (10:13)
[2021-02-11] MEDS: LOSARTAN POTASSIUM 50 MG TABLET PO SCH (10:13)
[2021-02-11] MEDS: CEFTRIAXONE 1 GM in DEXTROSE 5%-WATER - 50 ML IVPB SCH (10:14)
[2021-02-11] MEDS: DEXTROSE 5%-0.45% SALINE 1,000 ML IV SCH (14:15)
[2021-02-12] MEDS: DEXTROSE 5%-0.45% SALINE 1,000 ML IV SCH (05:11)
[2021-02-12] MEDS ORDERED: cefTRIAXone SODIUM 1 GM VIAL ONE (08:20)
[2021-02-12] MEDS ORDERED: DEXTROSE 5%-WATER - 50 ML IVPB ONE (08:20)
[2021-02-12] MEDS: CEFTRIAXONE 1 GM in DEXTROSE 5%-WATER - 50 ML IVPB SCH (08:26)
[2021-02-12] MEDS: CARVEDILOL 3.125 MG TABLET (FP) PO SCH ×2 (08:26→21:02)
[2021-02-12] MEDS: LOSARTAN POTASSIUM 50 MG TABLET PO SCH (08:27)
[2021-02-12] MEDS: SERTRALINE HCL 25 MG TABLET (FP) PO SCH (08:27)
[2021-02-12 08:42] LABS: BASO % 0.6 % (0-2.0); HEMATOCRIT 33.2 % (32.4-45.2); HEMOGLOBIN 10.9 GM/dL (10.7-15.3); LYMPH % 17.6 % (8-40); MCH 27.4 pg (25.7-33.7); MCHC 32.7 g/dl (32.0-36.0); MEAN CELL VOLUME 83.7 fl (80-96); MEAN PLT VOLUME 8.4 fl (7.5-11.1); NEUT % 65.8 % (42.8-82.8); PLATELET COUNT 136 10^3/uL (134-434); RBC 3.97 M/mm3 (3.60-5.2); RDW 15.8 % (11.6-15.6); WHITE BLOOD COUNT 6.5 K/mm3 (4.0-10.0)
[2021-02-12 08:59] LABS: CALCIUM 8.8 mg/dL (8.5-10.1)
[2021-02-12 09:00] LABS: ALBUMIN 2.5 g/dl (3.4-5.0); BLOOD UREA NITROGEN 14.3 mg/dL (7-18)
[2021-02-12 09:03] LABS: CREATININE 0.9 mg/dL (0.55-1.3)
[2021-02-12 09:04] LABS: BILIRUBIN,TOTAL 0.8 mg/dL (0.2-1); TOT PROT 5.6 g/dl (6.4-8.2)
[2021-02-12 11:39] LABS: INR 1.29 (0.83-1.09); PROTHROMBIN TIME (PATIENT) 15.8 SEC (9.7-13.0)
[2021-02-12] MEDS ORDERED: DEXTROSE 5%-0.45% SALINE 1,000 ML IV SCH (16:44)
[2021-02-12 19:48] LABS: BF WBC & OTHER NUCLEATED CELLS 369 /mm3
[2021-02-12 20:10] LABS: BODY FLUID MONOCYTE 7 %
[2021-02-12 20:12] LABS: BODY FLUID MACROPHAGES 31 %; BODY FLUID MESOTHELIAL 4 %
[2021-02-13] MEDS ORDERED: cefTRIAXone SODIUM 1 GM VIAL ONE (11:05)
[2021-02-13] MEDS ORDERED: DEXTROSE 5%-WATER - 50 ML IVPB ONE (11:06)
[2021-02-13] MEDS: CARVEDILOL 3.125 MG TABLET (FP) PO SCH ×2 (11:09→21:06)
[2021-02-13] MEDS: LOSARTAN POTASSIUM 50 MG TABLET PO SCH (11:09)
[2021-02-13] MEDS: CEFTRIAXONE 1 GM in DEXTROSE 5%-WATER - 50 ML IVPB SCH (11:09)
[2021-02-13] MEDS: SERTRALINE HCL 25 MG TABLET (FP) PO SCH (11:09)
[2021-02-13] MEDS: DEXTROSE 5%-0.45% SALINE 1,000 ML IV SCH (11:10)
[2021-02-13 13:17] LABS: BASO % 0.7 % (0-2.0); EOS % 1.5 % (0-4.5); HEMATOCRIT 35.9 % (32.4-45.2); HEMOGLOBIN 11.6 GM/dL (10.7-15.3); LYMPH % 14.6 % (8-40); MCH 27.4 pg (25.7-33.7); MCHC 32.3 g/dl (32.0-36.0); MEAN CELL VOLUME 84.9 fl (80-96); MEAN PLT VOLUME 9.2 fl (7.5-11.1); MONO % 13.7 % (3.8-10.2); NEUT % 69.5 % (42.8-82.8); PLATELET COUNT 158 10^3/uL (134-434); RBC 4.23 M/mm3 (3.60-5.2); RDW 16.1 % (11.6-15.6); WHITE BLOOD COUNT 6.2 K/mm3 (4.0-10.0)
[2021-02-13 13:34] LABS: ALBUMIN 2.8 g/dl (3.4-5.0); BLOOD UREA NITROGEN 12.9 mg/dL (7-18)
[2021-02-13 13:39] LABS: BILIRUBIN,TOTAL 0.9 mg/dL (0.2-1); TOT PROT 6.2 g/dl (6.4-8.2)
[2021-02-14 08:07] LABS: CARCINOEMBRYONIC ANTIGEN 2.9 ng/mL (0.0-4.7)
[2021-02-14] MEDS ORDERED: DEXTROSE 5%-WATER - 50 ML IVPB ONE (09:53)
[2021-02-14] MEDS ORDERED: cefTRIAXone SODIUM 1 GM VIAL ONE (09:53)
[2021-02-14] MEDS: CEFTRIAXONE 1 GM in DEXTROSE 5%-WATER - 50 ML IVPB SCH (10:23)
[2021-02-14] MEDS: SERTRALINE HCL 25 MG TABLET (FP) PO SCH (10:27)
[2021-02-14] MEDS: CARVEDILOL 3.125 MG TABLET (FP) PO SCH ×2 (10:27→22:46)
[2021-02-14] MEDS: LOSARTAN POTASSIUM 50 MG TABLET PO SCH (10:27)
[2021-02-14] MEDS: FAMOTIDINE 20 MG TABLET PO SCH (22:45)
[2021-02-15 08:38] LABS: CALCIUM 9.2 mg/dL (8.5-10.1)
[2021-02-15 08:42] LABS: CREATININE 1.1 mg/dL (0.55-1.3)
[2021-02-15] MEDS ORDERED: cefTRIAXone SODIUM 1 GM VIAL ONE (08:53)
[2021-02-15] MEDS ORDERED: DEXTROSE 5%-WATER - 50 ML IVPB ONE (08:54)
[2021-02-15] MEDS: SERTRALINE HCL 25 MG TABLET (FP) PO SCH (09:18)
[2021-02-15] MEDS: CEFTRIAXONE 1 GM in DEXTROSE 5%-WATER - 50 ML IVPB SCH (09:18)
[2021-02-15] MEDS: LOSARTAN POTASSIUM 50 MG TABLET PO SCH (09:18)
[2021-02-15] MEDS: FAMOTIDINE 20 MG TABLET PO SCH ×2 (09:18→21:28)
[2021-02-15] MEDS: CARVEDILOL 3.125 MG TABLET (FP) PO SCH ×2 (09:19→21:28)
[2021-02-15] MEDS ORDERED: traMADol HCL 50 MG TABLET PO PRN (10:10)
[2021-02-15] MEDS ORDERED: MAG HYDROX/AL HYDROX/SIMETH 30 ML UNIT-DOSE CUP PO PRN (10:11)
[2021-02-15] MEDS: LIDOCAINE 5% TOPICAL PATCH TP SCH (13:02)
[2021-02-15] MEDS ORDERED: LORazepam 2 MG/ML SDV VIAL IVPUSH ONE (16:30)
[2021-02-15] MEDS ORDERED: LORazepam 2 MG/ML SDV VIAL IVPB PRN (16:32)
[2021-02-15] MEDS: LIDOCAINE PATCH REMOVAL MC SCH (21:28)
[2021-02-16 00:06] LABS: BODY FLUID ALBUMIN 1.4 g/dL (Not Estab.)
[2021-02-16] MEDS ORDERED: DEXTROSE 5%-WATER - 50 ML IVPB ONE ×2 (08:56→08:57)
[2021-02-16] MEDS ORDERED: cefTRIAXone SODIUM 1 GM VIAL ONE ×2 (08:56→08:57)
[2021-02-16] MEDS: SERTRALINE HCL 25 MG TABLET (FP) PO SCH (09:06)
[2021-02-16] MEDS: LOSARTAN POTASSIUM 50 MG TABLET PO SCH (09:06)
[2021-02-16] MEDS: LIDOCAINE 5% TOPICAL PATCH TP SCH (09:06)
[2021-02-16] MEDS: CARVEDILOL 3.125 MG TABLET (FP) PO SCH ×2 (09:06→21:21)
[2021-02-16] MEDS: CEFTRIAXONE 1 GM in DEXTROSE 5%-WATER - 50 ML IVPB SCH (09:06)
[2021-02-16] MEDS: FAMOTIDINE 20 MG TABLET PO SCH ×2 (09:07→21:21)
[2021-02-16] MEDS: LIDOCAINE PATCH REMOVAL MC SCH (21:21)
[2021-02-17 07:30] LABS: BASO % 0.8 % (0-2.0); HEMATOCRIT 34.3 % (32.4-45.2); HEMOGLOBIN 11.1 GM/dL (10.7-15.3); LYMPH % 18.7 % (8-40); MCHC 32.3 g/dl (32.0-36.0); MEAN CELL VOLUME 83.7 fl (80-96); MEAN PLT VOLUME 8.3 fl (7.5-11.1); MONO % 13.4 % (3.8-10.2); NEUT % 65.1 % (42.8-82.8); PLATELET COUNT 143 10^3/uL (134-434); RDW 16.2 % (11.6-15.6); WHITE BLOOD COUNT 6.3 K/mm3 (4.0-10.0)
[2021-02-17 07:40] LABS: INR 1.3 (0.83-1.09); PROTHROMBIN TIME (PATIENT) 15.9 SEC (9.7-13.0)
[2021-02-17 07:42] LABS: ACTIVATED PTT 33.7 SECONDS (25.2-36.5)
[2021-02-17 07:47] LABS: ALBUMIN 2.5 g/dl (3.4-5.0); BLOOD UREA NITROGEN 21.5 mg/dL (7-18)
[2021-02-17 07:51] LABS: BILIRUBIN,TOTAL 1.1 mg/dL (0.2-1)
[2021-02-17 07:52] LABS: TOT PROT 5.7 g/dl (6.4-8.2)
[2021-02-17] MEDS ORDERED: cefTRIAXone SODIUM 1 GM VIAL ONE (09:29)
[2021-02-17] MEDS ORDERED: DEXTROSE 5%-WATER - 50 ML IVPB ONE (09:29)
[2021-02-17] MEDS: SERTRALINE HCL 25 MG TABLET (FP) PO SCH (09:43)
[2021-02-17] MEDS: LOSARTAN POTASSIUM 50 MG TABLET PO SCH (09:43)
[2021-02-17] MEDS: CARVEDILOL 3.125 MG TABLET (FP) PO SCH ×2 (09:44→21:18)
[2021-02-17] MEDS: FAMOTIDINE 20 MG TABLET PO SCH ×2 (09:44→21:18)
[2021-02-17] MEDS: CEFTRIAXONE 1 GM in DEXTROSE 5%-WATER - 50 ML IVPB SCH (09:44)
[2021-02-17] MEDS: LIDOCAINE 5% TOPICAL PATCH TP SCH (09:44)
[2021-02-17 15:48] VITALS: BMI 31.1
[2021-02-17] MEDS: LIDOCAINE PATCH REMOVAL MC SCH (21:29)
[2021-02-18] MEDS ORDERED: cefTRIAXone SODIUM 1 GM VIAL ONE (09:22)
[2021-02-18] MEDS ORDERED: DEXTROSE 5%-WATER - 50 ML IVPB ONE (09:22)
[2021-02-18] MEDS: CEFTRIAXONE 1 GM in DEXTROSE 5%-WATER - 50 ML IVPB SCH (09:37)
[2021-02-18] MEDS: LOSARTAN POTASSIUM 50 MG TABLET PO SCH (09:38)
[2021-02-18] MEDS: LIDOCAINE 5% TOPICAL PATCH TP SCH (09:38)
[2021-02-18] MEDS: CARVEDILOL 3.125 MG TABLET (FP) PO SCH ×2 (09:38→21:22)
[2021-02-18] MEDS: SERTRALINE HCL 25 MG TABLET (FP) PO SCH (09:38)
[2021-02-18] MEDS: FAMOTIDINE 20 MG TABLET PO SCH ×2 (09:39→21:22)
[2021-02-18] MEDS: LIDOCAINE PATCH REMOVAL MC SCH (22:42)
[2021-02-19] MEDS ORDERED: cefTRIAXone SODIUM 1 GM VIAL ONE (09:15)
[2021-02-19] MEDS ORDERED: DEXTROSE 5%-WATER - 50 ML IVPB ONE (09:15)
[2021-02-19] MEDS: SERTRALINE HCL 25 MG TABLET (FP) PO SCH (09:21)
[2021-02-19] MEDS: CARVEDILOL 3.125 MG TABLET (FP) PO SCH ×2 (09:21→21:56)
[2021-02-19] MEDS: LOSARTAN POTASSIUM 50 MG TABLET PO SCH (09:21)
[2021-02-19] MEDS: FAMOTIDINE 20 MG TABLET PO SCH ×2 (09:22→21:56)
[2021-02-19] MEDS: LIDOCAINE 5% TOPICAL PATCH TP SCH (09:23)
[2021-02-19] MEDS: ENOXAPARIN NA (PORCINE) 40 MG/0.4 ML DISP.SYRIN SQ SCH (09:23)
[2021-02-19] MEDS: CEFTRIAXONE 1 GM in DEXTROSE 5%-WATER - 50 ML IVPB SCH (09:23)
[2021-02-19] MEDS: LIDOCAINE PATCH REMOVAL MC SCH (21:56)
[2021-02-20 08:33] LABS: ALBUMIN 2.5 g/dl (3.4-5.0); BLOOD UREA NITROGEN 19.5 mg/dL (7-18); CALCIUM 9.1 mg/dL (8.5-10.1)
[2021-02-20 08:37] LABS: CREATININE 1.1 mg/dL (0.55-1.3)
[2021-02-20 09:34] LABS: BILIRUBIN,TOTAL 0.9 mg/dL (0.2-1); TOT PROT 6.6 g/dl (6.4-8.2)
[2021-02-20] MEDS ORDERED: cefTRIAXone SODIUM 1 GM VIAL ONE (09:34)
[2021-02-20] MEDS ORDERED: DEXTROSE 5%-WATER - 50 ML IVPB ONE (09:35)
[2021-02-20] MEDS: CEFTRIAXONE 1 GM in DEXTROSE 5%-WATER - 50 ML IVPB SCH (09:44)
[2021-02-20] MEDS: FAMOTIDINE 20 MG TABLET PO SCH ×2 (09:44→21:32)
[2021-02-20] MEDS: SERTRALINE HCL 25 MG TABLET (FP) PO SCH (09:44)
[2021-02-20] MEDS: ENOXAPARIN NA (PORCINE) 40 MG/0.4 ML DISP.SYRIN SQ SCH (09:44)
[2021-02-20] MEDS: CARVEDILOL 3.125 MG TABLET (FP) PO SCH ×2 (09:44→21:32)
[2021-02-20] MEDS: LOSARTAN POTASSIUM 50 MG TABLET PO SCH (09:44)
[2021-02-20] MEDS: LIDOCAINE 5% TOPICAL PATCH TP SCH (09:44)
[2021-02-20 10:51] LABS: BASO % 0.2 % (0-2.0); EOS % 2.1 % (0-4.5); HEMATOCRIT 34.5 % (32.4-45.2); LYMPH % 21.6 % (8-40); MCH 26.9 pg (25.7-33.7); MEAN CELL VOLUME 84.3 fl (80-96); MEAN PLT VOLUME 9.1 fl (7.5-11.1); MONO % 13.2 % (3.8-10.2); NEUT % 62.9 % (42.8-82.8); PLATELET COUNT 135 10^3/uL (134-434); RBC 4.09 M/mm3 (3.60-5.2); RDW 16.4 % (11.6-15.6)
[2021-02-20] MEDS: LIDOCAINE PATCH REMOVAL MC SCH (21:46)
[2021-02-21] MEDS: LOSARTAN POTASSIUM 50 MG TABLET PO SCH (09:13)
[2021-02-21] MEDS: ENOXAPARIN NA (PORCINE) 40 MG/0.4 ML DISP.SYRIN SQ SCH (09:13)
[2021-02-21] MEDS: LIDOCAINE 5% TOPICAL PATCH TP SCH (09:13)
[2021-02-21] MEDS: SERTRALINE HCL 25 MG TABLET (FP) PO SCH (09:16)
[2021-02-21] MEDS: FAMOTIDINE 20 MG TABLET PO SCH ×2 (09:16→21:03)
[2021-02-21] MEDS: CARVEDILOL 3.125 MG TABLET (FP) PO SCH ×2 (09:16→21:01)
[2021-02-21] MEDS: ACETAMINOPHEN 325 MG TABLET (FP) PO PRN (11:11)
[2021-02-21] MEDS ORDERED: LORazepam 0.5 MG TABLET PO ONE ×2 (11:15→16:45)
[2021-02-21] MEDS: LIDOCAINE PATCH REMOVAL MC SCH (21:03)
[2021-02-22] MEDS: SERTRALINE HCL 25 MG TABLET (FP) PO SCH (09:44)
[2021-02-22] MEDS: FAMOTIDINE 20 MG TABLET PO SCH ×2 (09:44→21:29)
[2021-02-22] MEDS: ENOXAPARIN NA (PORCINE) 40 MG/0.4 ML DISP.SYRIN SQ SCH (09:44)
[2021-02-22] MEDS: LOSARTAN POTASSIUM 50 MG TABLET PO SCH ×2 (09:44→09:59)
[2021-02-22] MEDS: CARVEDILOL 3.125 MG TABLET (FP) PO SCH ×2 (09:44→21:29)
[2021-02-22] MEDS: LIDOCAINE 5% TOPICAL PATCH TP SCH (09:44)
[2021-02-22 10:03] LABS: INR 1.24 (0.83-1.09); PROTHROMBIN TIME (PATIENT) 15.2 SEC (9.7-13.0)
[2021-02-22 10:06] LABS: ACTIVATED PTT 34.6 SECONDS (25.2-36.5)
[2021-02-22] MEDS: RIFAXIMIN 200 MG TABLET PO SCH ×2 (14:24→22:10)
[2021-02-22] MEDS: OLANZapine 2.5 MG TABLET PO SCH (21:29)
[2021-02-22] MEDS: LIDOCAINE PATCH REMOVAL MC SCH (21:29)
[2021-02-23] MEDS: RIFAXIMIN 200 MG TABLET PO SCH ×3 (06:13→21:17)
[2021-02-23] MEDS: SERTRALINE HCL 25 MG TABLET (FP) PO SCH (10:25)
[2021-02-23] MEDS: CARVEDILOL 3.125 MG TABLET (FP) PO SCH ×2 (10:25→21:16)
[2021-02-23] MEDS: LOSARTAN POTASSIUM 50 MG TABLET PO SCH ×2 (10:25→10:27)
[2021-02-23] MEDS: ENOXAPARIN NA (PORCINE) 40 MG/0.4 ML DISP.SYRIN SQ SCH (10:25)
[2021-02-23] MEDS: LIDOCAINE 5% TOPICAL PATCH TP SCH (10:25)
[2021-02-23] MEDS: FAMOTIDINE 20 MG TABLET PO SCH ×2 (10:25→21:16)
[2021-02-23] MEDS: OLANZapine 2.5 MG TABLET PO SCH (21:16)
[2021-02-23] MEDS: LIDOCAINE PATCH REMOVAL MC SCH (21:17)
[2021-02-24] MEDS: ACETAMINOPHEN 325 MG TABLET (FP) PO PRN (01:27)
[2021-02-24] MEDS: RIFAXIMIN 200 MG TABLET PO SCH ×3 (05:38→21:45)
[2021-02-24] MEDS: FAMOTIDINE 20 MG TABLET PO SCH ×2 (10:02→21:45)
[2021-02-24] MEDS: LOSARTAN POTASSIUM 50 MG TABLET PO SCH (10:02)
[2021-02-24] MEDS: CARVEDILOL 3.125 MG TABLET (FP) PO SCH ×2 (10:02→21:45)
[2021-02-24] MEDS: SERTRALINE HCL 25 MG TABLET (FP) PO SCH (10:03)
[2021-02-24] MEDS: LIDOCAINE 5% TOPICAL PATCH TP SCH (12:06)
[2021-02-24] MEDS ORDERED: PT OWN MED DRAWER 7, Y5N ONE (15:37)
[2021-02-24] MEDS: ENOXAPARIN NA (PORCINE) 40 MG/0.4 ML DISP.SYRIN SQ SCH (15:46)
[2021-02-24] MEDS: LIDOCAINE PATCH REMOVAL MC SCH (21:45)
[2021-02-24] MEDS: OLANZapine 2.5 MG TABLET PO SCH (21:45)
[2021-02-25] MEDS: RIFAXIMIN 200 MG TABLET PO SCH ×2 (06:06→14:50)
[2021-02-25 08:11] LABS: HEMATOCRIT 34.1 % (32.4-45.2); HEMOGLOBIN 10.9 GM/dL (10.7-15.3); MCH 26.8 pg (25.7-33.7); MEAN CELL VOLUME 83.6 fl (80-96); MEAN PLT VOLUME 8.8 fl (7.5-11.1); PLATELET COUNT 145 10^3/uL (134-434); RBC 4.09 M/mm3 (3.60-5.2); RDW 17.3 % (11.6-15.6); WHITE BLOOD COUNT 5.8 K/mm3 (4.0-10.0)
[2021-02-25 08:43] LABS: ALBUMIN 2.2 g/dl (3.4-5.0); BLOOD UREA NITROGEN 31.3 mg/dL (7-18); CALCIUM 9.1 mg/dL (8.5-10.1)
[2021-02-25 08:44] LABS: MAGNESIUM 2.2 mg/dL (1.8-2.4)
[2021-02-25 08:46] LABS: CREATININE 1.1 mg/dL (0.55-1.3)
[2021-02-25 08:47] LABS: TOT PROT 5.7 g/dl (6.4-8.2)
[2021-02-25 08:48] LABS: BILIRUBIN,TOTAL 0.8 mg/dL (0.2-1)
[2021-02-25] MEDS: ENOXAPARIN NA (PORCINE) 40 MG/0.4 ML DISP.SYRIN SQ SCH (11:30)
[2021-02-25] MEDS: LIDOCAINE 5% TOPICAL PATCH TP SCH (11:30)
[2021-02-25] MEDS: FAMOTIDINE 20 MG TABLET PO SCH (11:30)
[2021-02-25] MEDS: SERTRALINE HCL 25 MG TABLET (FP) PO SCH (11:31)
[2021-02-25] MEDS: CARVEDILOL 3.125 MG TABLET (FP) PO SCH (11:31)
[2021-02-25] MEDS: LOSARTAN POTASSIUM 50 MG TABLET PO SCH (11:31)
[2021-02-25] MEDS ORDERED: PT OWN MED DRAWER 7, Y5N ONE (13:46)
[2021-02-26] MEDS ORDERED: PT OWN MED DRAWER 7, Y5N ONE ×5 (00:09→21:59)
[2021-02-26] MEDS: FAMOTIDINE 20 MG TABLET PO SCH ×3 (00:11→22:05)
[2021-02-26] MEDS: CARVEDILOL 3.125 MG TABLET (FP) PO SCH ×3 (00:11→22:05)
[2021-02-26] MEDS: LIDOCAINE PATCH REMOVAL MC SCH ×3 (00:12→22:10)
[2021-02-26] MEDS: RIFAXIMIN 200 MG TABLET PO SCH ×4 (00:12→22:06)
[2021-02-26] MEDS: OLANZapine 2.5 MG TABLET PO SCH ×2 (00:12→22:06)
[2021-02-26] MEDS: LIDOCAINE 5% TOPICAL PATCH TP SCH (10:28)
[2021-02-26] MEDS: SERTRALINE HCL 25 MG TABLET (FP) PO SCH (10:28)
[2021-02-26] MEDS: LOSARTAN POTASSIUM 50 MG TABLET PO SCH (10:28)
[2021-02-26 21:04] LABS: BASO % 0.7 % (0-2.0); EOS % 1.8 % (0-4.5); HEMATOCRIT 34.6 % (32.4-45.2); HEMOGLOBIN 11.1 GM/dL (10.7-15.3); LYMPH % 21.9 % (8-40); MCH 26.8 pg (25.7-33.7); MCHC 32.1 g/dl (32.0-36.0); MEAN CELL VOLUME 83.4 fl (80-96); MONO % 13.5 % (3.8-10.2); NEUT % 62.1 % (42.8-82.8); PLATELET COUNT 154 10^3/uL (134-434); RBC 4.15 M/mm3 (3.60-5.2); RDW 17.4 % (11.6-15.6); WHITE BLOOD COUNT 6.5 K/mm3 (4.0-10.0)
[2021-02-26 21:14] LABS: INR 1.2 (0.83-1.09); PROTHROMBIN TIME (PATIENT) 14.7 SEC (9.7-13.0)
[2021-02-27] MEDS ORDERED: PT OWN MED DRAWER 7, Y5N ONE ×4 (05:53→21:42)
[2021-02-27] MEDS: RIFAXIMIN 200 MG TABLET PO SCH ×3 (05:54→22:19)
[2021-02-27] MEDS: SERTRALINE HCL 25 MG TABLET (FP) PO SCH (09:49)
[2021-02-27] MEDS: LOSARTAN POTASSIUM 50 MG TABLET PO SCH (09:49)
[2021-02-27] MEDS: FAMOTIDINE 20 MG TABLET PO SCH ×2 (09:49→22:19)
[2021-02-27] MEDS: CARVEDILOL 3.125 MG TABLET (FP) PO SCH ×2 (09:49→22:19)
[2021-02-27] MEDS: LIDOCAINE 5% TOPICAL PATCH TP SCH (09:50)
[2021-02-27] MEDS ORDERED: INSULIN (NOVOLOG) ASPART 100 UNITS/ML 10ML VIAL ONE (17:43)
[2021-02-27] MEDS: ACETAMINOPHEN 325 MG TABLET (FP) PO PRN (22:18)
[2021-02-27] MEDS: OLANZapine 2.5 MG TABLET PO SCH (22:19)
[2021-02-27] MEDS: LIDOCAINE PATCH REMOVAL MC SCH (22:19)
[2021-02-28] MEDS ORDERED: PT OWN MED DRAWER 7, Y5N ONE ×3 (06:39→21:28)
[2021-02-28] MEDS: RIFAXIMIN 200 MG TABLET PO SCH ×3 (06:49→21:47)
[2021-02-28] MEDS: LOSARTAN POTASSIUM 50 MG TABLET PO SCH (11:29)
[2021-02-28] MEDS: CARVEDILOL 3.125 MG TABLET (FP) PO SCH ×2 (11:29→21:47)
[2021-02-28] MEDS: FAMOTIDINE 20 MG TABLET PO SCH ×2 (11:29→21:47)
[2021-02-28] MEDS: LIDOCAINE 5% TOPICAL PATCH TP SCH ×2 (11:29→16:41)
[2021-02-28] MEDS: SERTRALINE HCL 25 MG TABLET (FP) PO SCH (11:30)
[2021-02-28] MEDS: ACETAMINOPHEN 325 MG TABLET (FP) PO PRN (16:40)
[2021-02-28] MEDS: OLANZapine 2.5 MG TABLET PO SCH (21:47)
[2021-02-28] MEDS: LIDOCAINE PATCH REMOVAL MC SCH (21:47)
[2021-03-01] MEDS ORDERED: PT OWN MED DRAWER 7, Y5N ONE ×6 (05:32→22:07)
[2021-03-01] MEDS: RIFAXIMIN 200 MG TABLET PO SCH ×3 (05:48→22:11)
[2021-03-01] MEDS: LOSARTAN POTASSIUM 50 MG TABLET PO SCH (10:23)
[2021-03-01] MEDS: SERTRALINE HCL 25 MG TABLET (FP) PO SCH (10:23)
[2021-03-01] MEDS: LIDOCAINE 5% TOPICAL PATCH TP SCH (10:23)
[2021-03-01] MEDS: FAMOTIDINE 20 MG TABLET PO SCH ×2 (10:23→22:10)
[2021-03-01] MEDS: CARVEDILOL 3.125 MG TABLET (FP) PO SCH ×2 (10:23→22:11)
[2021-03-01] MEDS: OLANZapine 2.5 MG TABLET PO SCH (22:11)
[2021-03-01] MEDS: LIDOCAINE PATCH REMOVAL MC SCH (22:11)
[2021-03-02] MEDS: RIFAXIMIN 200 MG TABLET PO SCH ×3 (06:16→22:54)
[2021-03-02] MEDS: LIDOCAINE 5% TOPICAL PATCH TP SCH (09:23)
[2021-03-02] MEDS: FAMOTIDINE 20 MG TABLET PO SCH ×2 (09:24→22:53)
[2021-03-02] MEDS: LOSARTAN POTASSIUM 50 MG TABLET PO SCH (09:24)
[2021-03-02] MEDS: SERTRALINE HCL 25 MG TABLET (FP) PO SCH (09:24)
[2021-03-02] MEDS: CARVEDILOL 3.125 MG TABLET (FP) PO SCH ×2 (09:24→23:13)
[2021-03-02] MEDS ORDERED: PT OWN MED DRAWER 7, Y5N ONE (22:48)
[2021-03-02] MEDS: LIDOCAINE PATCH REMOVAL MC SCH (22:50)
[2021-03-02] MEDS: OLANZapine 2.5 MG TABLET PO SCH (22:55)
[2021-03-03] MEDS ORDERED: PT OWN MED DRAWER 7, Y5N ONE ×3 (05:26→22:00)
[2021-03-03] MEDS: RIFAXIMIN 200 MG TABLET PO SCH ×3 (05:27→22:12)
[2021-03-03] MEDS: CARVEDILOL 3.125 MG TABLET (FP) PO SCH ×2 (10:48→22:12)
[2021-03-03] MEDS: LIDOCAINE 5% TOPICAL PATCH TP SCH (10:48)
[2021-03-03] MEDS: FAMOTIDINE 20 MG TABLET PO SCH ×2 (10:48→22:12)
[2021-03-03] MEDS: SERTRALINE HCL 25 MG TABLET (FP) PO SCH (10:48)
[2021-03-03] MEDS: LOSARTAN POTASSIUM 50 MG TABLET PO SCH (10:49)
[2021-03-03] MEDS: LIDOCAINE PATCH REMOVAL MC SCH (22:12)
[2021-03-03] MEDS: OLANZapine 2.5 MG TABLET PO SCH (22:12)
[2021-03-03] MEDS: ACETAMINOPHEN 325 MG TABLET (FP) PO PRN (22:12)
[2021-03-04] MEDS: RIFAXIMIN 200 MG TABLET PO SCH ×2 (06:21→13:35)
[2021-03-04] MEDS: LOSARTAN POTASSIUM 50 MG TABLET PO SCH (11:06)
[2021-03-04] MEDS: LIDOCAINE 5% TOPICAL PATCH TP SCH (11:06)
[2021-03-04] MEDS: CARVEDILOL 3.125 MG TABLET (FP) PO SCH (11:06)
[2021-03-04] MEDS: FAMOTIDINE 20 MG TABLET PO SCH (11:06)
[2021-03-04] MEDS: SERTRALINE HCL 25 MG TABLET (FP) PO SCH (11:06)
[2021-03-04] MEDS: ACETAMINOPHEN 325 MG TABLET (FP) PO PRN (13:26)
[2021-03-04] MEDS ORDERED: PT OWN MED DRAWER 7, Y5N ONE (13:32)
[2021-03-04 19:12] VITALS: BP 120/68; PULSE 64; TEMP 97.7
== END 2021-03-04 19:38 | DRG 436 ==
LOC: JER 14:17 → JERBED 21:33 → J7W 02-11 02:04
PROVIDERS: ADMIT Internal Medicine; ATTEND Family Medicine
PROC: 0W9G3ZX Drainage of Peritoneal Cavity, Percutaneous Approach, Diagnostic (ICD-10-PCS; principal; 2021-02-12)
DX: C22.9 Malignant neoplasm of liver, not specified as primary or secondary (principal); N17.9 Acute kidney failure, unspecified; E87.2 Acidosis; N39.0 Urinary tract infection, site not specified; R18.8 Other ascites; G93.40 Encephalopathy, unspecified; I50.32 Chronic diastolic (congestive) heart failure; R16.0 Hepatomegaly, not elsewhere classified; I11.0 Hypertensive heart disease with heart failure; E11.9 Type 2 diabetes mellitus without complications; E78.5 Hyperlipidemia, unspecified; E03.9 Hypothyroidism, unspecified; J45.909 Unspecified asthma, uncomplicated; Z95.2 Presence of prosthetic heart valve; Z79.84 Long term (current) use of oral hypoglycemic drugs; I25.10 Atherosclerotic heart disease of native coronary artery without angina pectoris; J44.9 Chronic obstructive pulmonary disease, unspecified; D12.6 Benign neoplasm of colon, unspecified; E86.0 Dehydration; I35.0 Nonrheumatic aortic (valve) stenosis; K80.20 Calculus of gallbladder without cholecystitis without obstruction; R16.1 Splenomegaly, not elsewhere classified; N20.0 Calculus of kidney; M54.16 Radiculopathy, lumbar region; D64.9 Anemia, unspecified
CPT/HCPCS: 36415; 70450-TC; 71045-TC-FY; 72100-TC-FY; 74176-TC; 74178-TC; 76705-TC; 76942-TC; 80048; 80053; 81003; 82042; 82105; 82140; 82150; 82378; 82465; 82607; 82728; 82747; 82945; 82962; 83540; 83550; 83605; 83615; 83690; 83735; 83986; 84157; 84439; 84443; 84478; 85014; 85025; 85027; 85384; 85610; 85730; 86140; 86301; 86704; 86705; 86707; 86708; 86803; 87040; 87070; 87075; 87086; 87102; 87116; 87186; 87205; 87206; 87210; 87340; 87350; 88108; 88305-TC; 93005; 93010; 97116-GP; 97161-GP; 99285-25; C9803; Q9967; U0003; U0005

== ENCOUNTER → 2021-04-17 | Day surgery (SDC) | payer OTHER ==
[2021-04-17 15:57] LABS: BF WBC & OTHER NUCLEATED CELLS 269 /mm3
[2021-04-17 17:30] LABS: BODY FLUID MONOCYTE 5 %
[2021-04-17 17:31] LABS: BODY FLUID MACROPHAGES 64 %; BODY FLUID MESOTHELIAL 4 %
[2021-04-21 17:09] LABS: BODY FLUID ALBUMIN 1.2 g/dL (Not Estab.)
== END | disposition home or self-care (01) ==
LOC: JRADUS-SUR 10:32
PROVIDERS: ATTEND Family Medicine
PROC: 0W9G3ZX Drainage of Peritoneal Cavity, Percutaneous Approach, Diagnostic (ICD-10-PCS; principal; 2021-04-17)
DX: R18.8 Other ascites (principal)
CPT/HCPCS: 36415; 49083; 76942-TC; 82042; 82150; 82465; 82945; 83615; 83986; 84157; 84478; 87070; 87075; 87102; 87116; 87205; 87206; 87210; 88108; 88305-TC